=== PATIENT | female | born 1935 | race Caucasian/White ===

== ENCOUNTER 2016-02-25 14:38 | Emergency (ER) | payer MEDICARE, MEDICAID ==
[~2016-02-25] VITALS: Ht 162.6 cm; Wt 65.8 kg
[~2016-02-25 14:38] MED LIST: ACHD5005 PO; BSP5T PO; CELE50CA; CEPH500C PO; CIPR500S2 PO; CIPR500T78 PO; CITA-105; CLNZ.5T PO; CLON0.5T3 PO; CLON1TAB3 PO; CTLP20T PO; DIAZ5TAB3 PO; DICL100G13 TOP; DULO60CA6 PO; FAMO20TA5 PO; FERR-57 PO; FERR28TA PO; FURO-125 PO; FURO40TA4 PO; GBPN100C; GENT5DRO30; HYDR-34; HYDR-3720 PO; HYDR-3816 PO; HYDR1CAP2 PO; HYDR1TAB PO; HYOS0.1216 PO; IPRA3AMP IH; LORA0.5T; LORA1TAB PO; MELO-195; MELO-195 PO; MELO-198 PO; MELO7.5T; METO10TA3 PO; MIRT15TA6 PO; MUPI1OIN5 NS; NITR-65 PO; OMEP40CA36 PO; PHEN200T27 PO; PRD20T PO; PRED10TA PO; PREDNISOLONE; PROM25SU10 PR; PROP1TAB77 PO; SCR1T PO; SULF-222 PO; SULF1TAB35 PO; TRAM50TA2; TRAM50TA2 PO; TRM50T PO; TRZ100T PO
[2016-02-25] MEDS ORDERED: ONDANSETRON 4 MG (ZOFRAN) ORAL DISSOLVE TAB PO ONE (15:15)
[2016-02-25 15:32] LABS: BILIRUBIN,URINE NEGATIVE (NEGATIVE); KETONES,URINE NEGATIVE (NEGATIVE); LEUKOCYTE ESTERASE ,URINE 3+ (NEGATIVE); NITRITE,URINE NEGATIVE (NEGATIVE); PH,URINE 7 (5-9); PROTEIN,URINE 1+ (NEGATIVE); UROBILINOGEN,URINE NORMAL (NORMAL)
[2016-02-25 15:43] LABS: SQUAMOUS EPITHELIAL CELL,UR RARE /HPF; WBC,URINE 25-50 /HPF
[2016-02-25] MEDS ORDERED: PHEN-640 PO (16:14)
[2016-02-25] MEDS ORDERED: NITR-65 PO (16:14)
--- NOTE | 2016-02-25 16:14 | ED GU-Female ---
General Chief Complaint: Abdominal/GI Problems Stated Complaint: HIP PAIN Nursing Triage Note: TO ED PER EMS ONSET OF LOW ABD PAIN LAST NIGHT NO VOMITING ASKING TO DRINK WATER ON ADMIT. Nursing Sepsis Screen: No Definite Risk Source: patient (VERY LIMITED, DIFFICULT HISTORIAN), EMS, old records History of Present Illness Time seen by provider: 15:00 Initial Comments PT ARRIVES VIA EMS FROM HOME C/O LOWER ABDOMINAL PAIN SINCE LAST PM C/O BURNING ON URINATION C/O NAUSEA, NO VOMITING NO FEVER PCP: DR. CORRALES AT [facility] Allergies and Home Medications Allergies Coded Allergies: No Known Drug Allergies (Unverified , 04/26/09) Home Medications Buspirone Hcl 5 Mg Tablet 5 MG PO BID (Reported) Clonazepam 0.5 Mg Tablet 1 EACH PO BID (Reported) Duloxetine Hcl 60 Mg Capsule.dr 60 MG PO DAILY (Reported) Famotidine 20 Mg Tablet 20 MG PO BID (Reported) Ferrous Sulfate 325 Mg Tablet 325 MG PO HS (Reported) Furosemide 40 Mg Tablet 30Days 20 MG PO DAILY We will cut the 40mg tabs in half while you still have this prescription Prescribed by: WENDY DUNBAR on 04/12/14 1433 Furosemide 20 Mg Tablet #30 20 MG PO UD 1 po qAM Prescribed by: DEANA FUNEZ on 12/27/15 1854 Ipratropium/Albuterol Sulfate 3 Ml Ampul.neb 3 ML IH (Reported) Lorazepam 1 Mg Tab 1 EACH PO DAILY PRN PRN ANXIETY (Reported) Meloxicam 7.5 Mg Tablet 1 EACH PO DAILY (Reported) Nitrofurantoin Monohyd/M-Cryst 100 Mg Capsule #20 100 MG PO BID Prescribed by: BRIGID COLES on 02/25/16 1614 Phenazopyridine HCl 200 Mg Tablet #15 1 TAB PO TID Prescribed by: BRIGID COLES on 02/25/16 1614 Prednisone 20 Mg Tab #10 20 MG PO BID Prescribed by: DEANA FUNEZ on 06/07/15 1452 Trazodone Hcl 100 Mg Tablet 100 MG PO HS (Reported) Constitutional: no symptoms reportedNo fever Respiratory: no symptoms reported Cardiovascular: no symptoms reported Gastrointestinal: see HPI abdominal pain nausea Genitourinary: see HPI burning frequency incontinence Musculoskeletal: no symptoms reported Skin: no symptoms reported Psychiatric/Neurological: No Symptoms Reported Endocrine: No Symptoms Reported Past Bhqgitn-Ybrepl-Jjisud Hx Patient Social History Alcohol Use: Denies Use Recreational Drug Use: No Smoking Status: Never a Smoker Recent Foreign Travel: No Contact w/Someone Who Travel: No Recent Infectious Disease Expo: No Recent Hopitalizations: No Physical Abuse Screen: No Sexual Abuse: No Immunizations Up To Date Tetanus Booster (TDap): Unknown Date of Influenza Vaccine: Nov 24, 2014 Seasonal Allergies Seasonal Allergies: No Surgeries HX Surgeries: Yes Surgeries: Appendectomy, Orthopedic Respiratory Hx Respiratory Disorders: No Cardiovascular Hx Cardiac Disorders: Yes (chronic pedal edema) Cardiac Disorders: Chronic Edema/Swelling Neurological Hx Neurological Disorders: Yes (dementia) Neurological Disorders: Dementia Reproductive System Hx Reproductive Disorders: No Sexually Transmitted Disease: No Genitourinary Hx Genitourinary Disorders: Yes Genitourinary Disorders: Bladder Infection Gastrointestinal Hx Gastrointestinal Disorders: Yes Gastrointestinal Disorders: Diverticulosis Musculoskeletal Hx Musculoskeletal Disorders: Yes (CHRONIC GENERALIZED PAIN, ESPECIALLY HIPS-- NARCOTIC DEPENDENCY AND ABUSE. ) Musculoskeletal Disorders: Arthritis Endocrine Hx Endocrine Disorders: No HEENT HX ENT Disorders: No Cancer Hx Cancer: No (per pt "brain tumor" unknown ) Psychosocial Hx Psychiatric Problems: Yes Behavioral Health Disorders: Anxiety, Depression Integumentary HX Skin/Integumentary Disorder: No Blood Transfusions Hx Blood Disorders: No Adverse Reaction to a Blood Tr: No Family Medical History Significant Family History: No Pertinent Family Hx Family Medial History: Patient reports no known family medical history. Physical Exam Vital Signs Vital Sign - Last 12Hours 02/25/16 14:55 Temp 98.5 Pulse 121 Resp 18 B/P 177/106 Pulse Ox 94 O2 Delivery Room Air Capillary Refill : Less Than 3 Seconds General Appearance: WD/WN no apparent distress other (CONSTANT SNIFFING AND BLINKING EYES. REEKS OF ZO MASON. 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 Referrals: BABAK TRIANA MD (PCP/Family) Primary Care Physician Patient Instructions: Urinary Tract Infection, Adult (DC) Add. Discharge Instructions: HOME, REST TAKE YOUR MEDICATIONS EXACTLY PRESCRIBED FOLLOW UP WITH YOUR DRHarlan THIS WEEK FOR FURTHER CARE All discharge instructions reviewed with patient and/or family. Voiced understanding. Scripts Phenazopyridine HCl (Pyridium)200 Mg Tablet1 Tab PO TID BLADDER DISCOMFORT #15 TAB Prov:SANKET,BRIGID K DO 02/25/16 Nitrofurantoin Monohyd/M-Cryst (Macrobid 100 mg Capsule)100 Mg [id number] Mg PO BID #20 CAP Prov:SANKET,BRIGID K DO 02/25/16 SANKET,BRIGID K DO Feb 25, 2016 16:14 02/25/16 14:55 Temp 98.5 Pulse 121 Resp 18 B/P 177/106 Pulse Ox 94 O2 Delivery Room Air Blood Pressure Mean: 129 Departure Impression Impression: Primary Impression: Urinary tract infection Disposition: HOME, SELF-CARE Condition: Stable Departure-Patient Inst. Referrals: BABAK TRIANA MD (PCP/Family) Primary Care Physician Patient Instructions: Urinary Tract Infection, Adult (DC) Add. Discharge Instructions: HOME, REST TAKE YOUR MEDICATIONS EXACTLY PRESCRIBED FOLLOW UP WITH YOUR DRHarlan THIS WEEK FOR FURTHER CARE All discharge instructions reviewed with patient and/or family. Voiced understanding. Scripts Phenazopyridine HCl (Pyridium)200 Mg Tablet1 Tab PO TID BLADDER DISCOMFORT #15 TAB Prov:SANKET,BRIGID K DO 02/25/16 Nitrofurantoin Monohyd/M-Cryst (Macrobid 100 mg Capsule)100 Mg [id number] Mg PO BID #20 CAP Prov:SANKET,BRIGID K DO 02/25/16 SANKET,BRIGID K DO Feb 25, 2016 16:14
[2016-02-25 16:30] VITALS: BP 105/94
== END 2016-02-25 16:57 | disposition home or self-care (01) ==
LOC: EDUNIT# 14:38 → ER 14:39
DX: N39.0 Urinary tract infection, site not specified (principal)
CPT/HCPCS: 51701; 81000; 87088; 99284

== ENCOUNTER 2016-02-26 01:10 | Emergency (ER) | payer MEDICARE, MEDICAID ==
[~2016-02-26] VITALS: Ht 162.6 cm; Wt 61.2 kg
[~2016-02-26 01:10] MED LIST changes: +PHEN-640 PO
[2016-02-26] MEDS ORDERED: KETOROLAC 30 MG/ML VIAL IM ONE (01:45)
[2016-02-26 02:22] LABS: BASOPHILS % (AUTO) 0 % (0-10); EOSINOPHILS % (AUTO) 0 % (0-10); LYMPHOCYTES # (AUTO) 1.4 X 10^3 (1.0-4.0); LYMPHOCYTES % (AUTO) 12 % (12-44); MEAN CORPUSCULAR HEMOGLOBIN 31 PG (25-34); MEAN CORPUSCULAR HGB CONC 33 G/DL (32-36); MEAN CORPUSCULAR VOLUME 93 FL (80-99); MEAN PLATELET VOLUME 9.6 FL (7.4-10.4); MONOCYTES % (AUTO) 9 % (0-12); NEUTROPHILS # (AUTO) 9.1 X 10^3 (1.8-7.8); NEUTROPHILS % (AUTO) 79 % (42-75); PLATELET COUNT 229 10^3/uL (130-400); RED BLOOD COUNT 4.36 10^6/uL (4.35-5.85); RED CELL DISTRIBUTION WIDTH 13.2 % (10.0-14.5); WHITE BLOOD COUNT 11.6 10^3/uL (4.3-11.0)
[2016-02-26 02:43] LABS: ALANINE AMINOTRANSFERASE 15 U/L (0-55); ANION GAP 12 MMOL/L (5-14); ASPARTATE AMINO TRANSFERASE 18 U/L (5-34); BILIRUBIN,TOTAL 0.5 MG/DL (0.1-1.0); BLOOD UREA NITROGEN 12 MG/DL (7-18); BUN/CREATININE RATIO 18; CALCIUM 9.1 MG/DL (8.5-10.1); CARBON DIOXIDE 21 MMOL/L (21-32); CHLORIDE 98 MMOL/L (98-107); CREATININE SERUM 0.66 MG/DL (0.60-1.30); GFR ESTIMATED > 60; GLUCOSE 119 MG/DL (70-105); LIPASE 18 U/L (8-78); POTASSIUM 3.7 MMOL/L (3.6-5.0); SODIUM 131 MMOL/L (135-145); TOTAL PROTEIN 6.7 G/DL (6.4-8.2)
[2016-02-26] MEDS ORDERED: LIDOCAINE 1% INJ 20 ML (XYLOCAINE) VIAL INJ ONE (03:45)
[2016-02-26] MEDS ORDERED: cefTRIAXone 1 GM (ROCEPHIN) VIAL IM ONE (03:45)
[2016-02-26] MEDS ORDERED: PHENAZOPYRIDINE 100 MG (PYRIDIUM) TABLET PO ONE (03:45)
--- NOTE | 2016-02-26 03:49 | ED GU-Female ---
General Chief Complaint: General Problems/Pain Stated Complaint: AB PAIN Nursing Triage Note: Pt presents to ED with c/o abdominal pain, pt seen in ED yesterday afternoon and given scripts but did not get them filled. Nursing Sepsis Screen: Possible Sepsis Risk Source: patient, EMS, RN notes reviewed Exam Limitations: no limitations History of Present Illness Time seen by provider: 01:30 Initial Comments As above. Timing/Duration: yesterday Severity/Quality: severe Location: suprapubic Radiation: none Activities at Onset: none Sexual [place] History: not active Modifying Factors: Improves With Other (nothing makes pain better, or worse.) Associated Symptoms: abdominal pain Allergies and Home Medications Allergies Coded Allergies: No Known Drug Allergies (Unverified , 04/26/09) Home Medications Buspirone Hcl 5 Mg Tablet 5 MG PO BID (Reported) Clonazepam 0.5 Mg Tablet 1 EACH PO BID (Reported) Duloxetine Hcl 60 Mg Capsule.dr 60 MG PO DAILY (Reported) Famotidine 20 Mg Tablet 20 MG PO BID (Reported) Ferrous Sulfate 325 Mg Tablet 325 MG PO HS (Reported) Furosemide 40 Mg Tablet 30Days 20 MG PO DAILY We will cut the 40mg tabs in half while you still have this prescription Prescribed by: WENDY DUNBAR on 04/12/14 1433 Furosemide 20 Mg Tablet #30 20 MG PO UD 1 po qAM Prescribed by: DEANA FUNEZ on 12/27/15 1854 Ipratropium/Albuterol Sulfate 3 Ml Ampul.neb 3 ML IH (Reported) Lorazepam 1 Mg Tab 1 EACH PO DAILY PRN PRN ANXIETY (Reported) Meloxicam 7.5 Mg Tablet 1 EACH PO DAILY (Reported) Nitrofurantoin Monohyd/M-Cryst 100 Mg Capsule #20 100 MG PO BID Prescribed by: BRIGID COLES on 02/25/16 1614 Phenazopyridine HCl 200 Mg Tablet #15 1 TAB PO TID Prescribed by: BRIGID COLES on 02/25/16 1614 Prednisone 20 Mg Tab #10 20 MG PO BID Prescribed by: DEANA FUNEZ on 06/07/15 1452 Trazodone Hcl 100 Mg Tablet 100 MG PO HS (Reported) Constitutional: see HPI Gastrointestinal: see HPI abdominal pain : No All Other Systemes Reviewed Negative Unless Noted: Yes (Negative excepted noted.) Past Oxcxqvq-Lyfzzr-Odnsed Hx Patient Social History Alcohol Use: Denies Use Recreational Drug Use: No Smoking Status: Never a Smoker Recent Foreign Travel: No Contact w/Someone Who Travel: No Recent Infectious Disease Expo: No Recent Hopitalizations: No Physical Abuse Screen: No Sexual Abuse: No Immunizations Up To Date Tetanus Booster (TDap): Unknown Date of Influenza Vaccine: Nov 24, 2014 Seasonal Allergies Seasonal Allergies: No Surgeries HX Surgeries: Yes Surgeries: Appendectomy, Orthopedic Respiratory Hx Respiratory Disorders: No Cardiovascular Hx Cardiac Disorders: Yes (chronic pedal edema) Cardiac Disorders: Chronic Edema/Swelling Neurological Hx Neurological Disorders: Yes (dementia) Reproductive System Hx Reproductive Disorders: No Sexually Transmitted Disease: No Genitourinary Hx Genitourinary Disorders: No Gastrointestinal Hx Gastrointestinal Disorders: Yes Gastrointestinal Disorders: Diverticulosis Musculoskeletal Hx Musculoskeletal Disorders: Yes (CHRONIC GENERALIZED PAIN, ESPECIALLY HIPS-- NARCOTIC DEPENDENCY AND ABUSE. ) Musculoskeletal Disorders: Arthritis Endocrine Hx Endocrine Disorders: No HEENT HX ENT Disorders: No Cancer Hx Cancer: No (per pt "brain tumor" unknown ) Psychosocial Hx Psychiatric Problems: Yes Behavioral Health Disorders: Anxiety, Depression Integumentary HX Skin/Integumentary Disorder: No Blood Transfusions Hx Blood Disorders: No Adverse Reaction to a Blood Tr: No Family Medical History Significant Family History: No Pertinent Family Hx Family Medial History: Patient reports no known family medical history. Physical Exam Vital Signs Vital Sign - Last 12Hours 02/26/16 01:10 Temp 98.0 Pulse 115 Resp 20 B/P 162/102 Pulse Ox 95 O2 Delivery Room Air Capillary Refill : Less Than 3 Seconds General Appearance: WD/WN no apparent distress (although the patient rates her pain as severe.) Cardiovascular: tachycardia Respiratory: no respiratory distress Gastrointestinal: softNo distended, No guarding, No rebound, tenderness ( suprapubically) Rectal: deferred Back: no CVA tenderness Neurologic/Psychiatric: no motor/sensory deficits alert depressed affect Skin: warm/dry Progress/Results/Core Measures Results/Orders Lab Results Laboratory Tests Test 02/26/16 02:16 Range/Units Alanine Aminotransferase (ALT/SGPT) 15 0-55 U/L Albumin 4.0 3.2-4.5 G/DL Alkaline Phosphatase 64 40-136 U/L Anion Gap 12 5-14 MMOL/L Aspartate Amino Transf (AST/SGOT) 18 5-34 U/L BUN/Creatinine Ratio 18 Basophils # (Auto) 0.0 0.0-0.1 10^3/uL Basophils (%) (Auto) 0 0-10 % Blood Urea Nitrogen 12 7-18 MG/DL Calcium Level 9.1 8.5-10.1 MG/DL Carbon Dioxide Level 21 21-32 MMOL/L Chloride Level 98 98-107 MMOL/L Creatinine 0.66 0.60-1.30 MG/DL Eosinophils # (Auto) 0.0 0.0-0.3 10^3/uL Eosinophils (%) (Auto) 0 0-10 % Estimat Glomerular Filtration Rate > 60 Glucose Level 119 H 70-105 MG/DL Hematocrit 41 35-52 % Hemoglobin 13.5 11.5-16.0 G/DL Lipase 18 8-78 U/L Lymphocytes # (Auto) 1.4 1.0-4.0 X 10^3 Lymphocytes (%) (Auto) 12 12-44 % Mean Corpuscular Hemoglobin 31 25-34 PG Mean Corpuscular Hemoglobin Concent 33 32-36 G/DL Mean Corpuscular Volume 93 80-99 FL Mean Platelet Volume 9.6 7.4-10.4 FL Monocytes # (Auto) 1.0 0.0-1.0 X 10^3 Monocytes (%) (Auto) 9 0-12 % Neutrophils # (Auto) 9.1 H 1.8-7.8 X 10^3 Neutrophils (%) (Auto) 79 H 42-75 % Platelet Count 229 130-400 10^3/uL Potassium Level 3.7 3.6-5.0 MMOL/L Red Blood Count 4.36 4.35-5.85 10^6/uL Red Cell Distribution Width 13.2 10.0-14.5 % Sodium Level 131 L 135-145 MMOL/L Total Bilirubin 0.5 0.1-1.0 MG/DL Total Protein 6.7 6.4-8.2 G/DL White Blood Count 11.6 H 4.3-11.0 10^3/uL My Orders Orders-BOBO FERNANDEZ DO Cbc With Automated Diff (02/26/16 01:34) Comprehensive Metabolic Panel (02/26/16 01:34) Lipase (02/26/16 01:34) Ketorolac Injection (Toradol Injection) (02/26/16 01:45) Ct Abdomen/Pelvis Wo (02/26/16 02:59) Ceftriaxone Injection (Rocephin Injectio (02/26/16 03:45) Lidocaine 1% Injection (Xylocaine 1% Inj (02/26/16 03:45) Phenazopyridine Tablet (Pyridium Tablet) (02/26/16 03:45) Meloxicam Tablet (Mobic Tablet) (02/26/16 09:00) Ondansetron Oral Dissolve Tab (Zofran (02/26/16 03:59) Ondansetron Oral Dissolve Tab (Zofran (02/26/16 04:15) Rx-Ondansetron Po (Rx-Zofran Po) (02/26/16 04:15) Rx-Ondansetron Po (Rx-Zofran Po) (02/26/16 04:06) Medications Given in ED Current Medications Medications Dose Ordered Sig/Kristi Route Start Time Stop Time Status Last Admin Dose Admin Ceftriaxone Sodium 1,000 mg ONCE ONCE IM 02/26/16 03:45 02/26/16 03:46 DC 02/26/16 03:53 1,000 MG Ketorolac Tromethamine 15 mg ONCE ONCE IM 02/26/16 01:45 02/26/16 01:46 DC 02/26/16 02:15 15 MG Lidocaine HCl 2.1 ml ONCE ONCE INJ 02/26/16 03:45 02/26/16 03:46 DC 02/26/16 03:54 2.1 ML Ondansetron HCl 4 mg Q6H PRN SL 02/26/16 04:15 02/26/16 04:13 4 MG Phenazopyridine HCl 200 mg ONCE ONCE PO 02/26/16 03:45 02/26/16 03:46 DC 02/26/16 03:53 200 MG Vital Signs/I&O Vital Sign - Last 12Hours 02/26/16 01:10 Temp 98.0 Pulse 115 Resp 20 B/P 162/102 Pulse Ox 95 O2 Delivery Room Air Blood Pressure Mean: 122 Diagnostic Imaging Diagonstic Imaging: CT Plain Films/CT/US/NM/MRI: abdomen Reviewed: Reviewed [place] Hawk Study (nothing acute) Departure Impression Impression: Primary Impression: Abdominal pain Additional Impressions: Urinary tract infection Non compliance w medication regimen Disposition: 01 HOME, SELF-CARE Condition: Stable Departure-Patient Inst. Decision time for Depature: 03:46 Referrals: BABAK TRIANA MD (PCP/Family) Primary Care Physician Patient Instructions: Urinary Tract Infection, Adult (DC) Add. Discharge Instructions: All discharge instructions reviewed with patient and/or family. Voiced understanding. NEED TO FILL THE PRESCRIPTIONS THAT WERE GIVEN TO YOU @ YOUR EARLIER VISIT AND TAKE DIRECTED. BOBO FERNANDEZ DO Feb 26, 2016 03:48
[2016-02-26] MEDS ORDERED: ONDANSETRON 4 MG (ZOFRAN) ORAL DISSOLVE TAB ONE (03:59)
[2016-02-26] MEDS ORDERED: RX-ONDANSETRON 4 MG ODT (ZOFRAN) PPK #4 ONE (04:06)
[2016-02-26] MEDS ORDERED: RX-ONDANSETRON 4 MG ODT (ZOFRAN) PPK #4 SL PRN (04:15)
[2016-02-26] MEDS ORDERED: ONDANSETRON 4 MG (ZOFRAN) ORAL DISSOLVE TAB PO ONE (04:15)
[2016-02-26 04:40] VITALS: BP 139/70
--- NOTE | 2016-02-26 07:06 | Diagnostic Imaging Report ---
PROCEDURE: CT abdomen and pelvis without contrast. TECHNIQUE: Multiple contiguous axial images were obtained through the abdomen and pelvis without the use of intravenous contrast. INDICATION: Pain. Exam compared 07/07/2015. The lung bases are nonacute. There is no pneumatosis or free air. There are beam hardening artifacts owing to bilateral hip prostheses. No visualized acute pelvic abnormality. There is no appendicitis. No findings suggestive of diverticulitis. There is no hydronephrosis or opaque kidney stone. The aorta nonaneurysmal. Gallbladder and bile ducts unremarkable. There is no adrenal mass. No mesenteric or retroperitoneal lymphadenopathy. L3 superior endplate compression deformity is sclerotic, well defined, and stable from prior. T11 superior endplate concavity without retropulsion is above the [id number] on prior but showed no apparent adjacent hemorrhage. No lucent fracture line. This is likely chronic although correlate clinically. 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 IMPRESSION: No bowel, biliary, or urinary tract obstruction. No ascites, fluid collection, or inflammatory process. Stable L3 endplate vertebral body fracture. T11 superior endplate concavity not seen on prior but above the [id number] appears chronic but correlate clinically. No convincing evidence for an acute abnormality at this study. Dictated by: Dictated on workstation # [id number]
[2016-02-26] MEDS ORDERED: MELOXICAM 7.5 MG (MOBIC) TABLET PO SCH (09:00)
== END 2016-02-26 04:40 | disposition home or self-care (01) ==
LOC: EDUNIT# 01:10 → ER 01:11
DX: R10.30 Lower abdominal pain, unspecified (principal); N39.0 Urinary tract infection, site not specified; Z91.14 Patient's other noncompliance with medication regimen; Z79.899 Other long term (current) drug therapy
CPT/HCPCS: 36415; 74176; 80048; 80053; 81000; 83690; 85007; 85025; 85027; 87088; 96372; 99281

== ENCOUNTER 2016-02-26 13:59 | Emergency (ER) | payer MEDICARE, MEDICAID ==
[~2016-02-26] VITALS: Ht 170.2 cm; Wt 68.0 kg
--- NOTE | 2016-02-26 18:42 | ED General ---
General Chief Complaint: General Problems/Pain Stated Complaint: ABD PAIN, UTI SYMPTOMS Nursing Triage Note: PT TO ED W/ C/O ABD PAIN ET UTI. PT HAS BEEN SEEN ET TREATED IN THIS ED X2 ALREADY FOR SAME C/O. PT DENIED GETTING RX FILLED TODAY THAT WAS PRESCRIBED LAST NOC. Nursing Sepsis Screen: No Definite Risk Source of Information: Patient Exam Limitations: No Limitations (DEANA FUNEZ) History of Present Illness Time Seen by Provider: 18:42 Initial Comments Patient seen, evaluated, and patient care provided by Dr. Donis. (DEANA FUNEZ) Initial Comments Patient has returned to the ED once again c/ c/o abdominal pain. I know I have seen her @ least twice recently and I know Dr. Ansari has seen her @ least twice in that period of time. Her work up revealed a UTI for which she was provided Rx's by Dr. Ansari for treatment of her condition but the patient continues to not fill the Rx's and keeps returning here c/ the same complaints. Has a hx of liking pain meds, although I think she is trying to get admitted so that someone can take care of her. She apparently lives by herself and I think she is lonely. Severity: Moderate Modifying Factors: improves with Other (none) Associated Systoms: Denies Symptoms (BOBO DONIS DO) Allergies and Home Medications Allergies Coded Allergies: No Known Drug Allergies (Unverified , 04/26/09) Home Medications Buspirone Hcl 5 Mg Tablet 5 MG PO BID (Reported) Clonazepam 0.5 Mg Tablet 1 EACH PO BID (Reported) Duloxetine Hcl 60 Mg Capsule.dr 60 MG PO DAILY (Reported) Famotidine 20 Mg Tablet 20 MG PO BID (Reported) Ferrous Sulfate 325 Mg Tablet 325 MG PO HS (Reported) Furosemide 40 Mg Tablet 30Days 20 MG PO DAILY We will cut the 40mg tabs in half while you still have this prescription Prescribed by: WENDY DUNBAR on 04/12/14 1433 Furosemide 20 Mg Tablet #30 20 MG PO UD 1 po qAM Prescribed by: DEANA FUNEZ on 12/27/15 1854 Ipratropium/Albuterol Sulfate 3 Ml Ampul.neb 3 ML IH (Reported) Lorazepam 1 Mg Tab 1 EACH PO DAILY PRN PRN ANXIETY (Reported) Meloxicam 7.5 Mg Tablet 1 EACH PO DAILY (Reported) Nitrofurantoin Monohyd/M-Cryst 100 Mg Capsule #20 100 MG PO BID Prescribed by: BRIGID ANSARI on 02/25/16 1614 Phenazopyridine HCl 200 Mg Tablet #15 1 TAB PO TID Prescribed by: BRIGID ANSARI on 02/25/16 1614 Prednisone 20 Mg Tab #10 20 MG PO BID Prescribed by: DEANA FUNEZ on 06/07/15 1452 Trazodone Hcl 100 Mg Tablet 100 MG PO HS (Reported) Constitutional: see HPI Gastrointestinal: see HPI abdominal pain : No (BOBO DONIS DO) All Other Systems Reviewed Negative Unless Noted: Yes (Negative excepted noted.) (BOBO DONIS DO) Past Ukpymrq-Snmgam-Lyftid Hx Patient Social History Alcohol Use: Denies Use Recreational Drug Use: No Smoking Status: Never a Smoker Recent Foreign Travel: No Contact w/Someone Who Travel: No Recent Infectious Disease Expo: No Recent Hopitalizations: No Physical Abuse Screen: No Sexual Abuse: No (DEANA FUNEZ) Immunizations Up To Date Tetanus Booster (TDap): Unknown Date of Influenza Vaccine: Nov 24, 2014 (DEANA FUNEZ) Seasonal Allergies Seasonal Allergies: No (DEANA FUNEZ) Surgeries HX Surgeries: Yes Surgeries: Appendectomy, Orthopedic (DEANA FUNEZ) Respiratory Hx Respiratory Disorders: No (DEANA FUNEZ) Cardiovascular Hx Cardiac Disorders: Yes (chronic pedal edema) Cardiac Disorders: Chronic Edema/Swelling (DEANA FUNEZ) Neurological Hx Neurological Disorders: Yes (dementia) (DEANA FUNEZ) Reproductive System Hx Reproductive Disorders: No Sexually Transmitted Disease: No (DEANA FUNEZ) Genitourinary Hx Genitourinary Disorders: No (DEANA FUNEZ) Gastrointestinal Hx Gastrointestinal Disorders: Yes Gastrointestinal Disorders: Diverticulosis (DEANA FUNEZ) Musculoskeletal Hx Musculoskeletal Disorders: Yes (CHRONIC GENERALIZED PAIN, ESPECIALLY HIPS-- NARCOTIC DEPENDENCY AND ABUSE. ) Musculoskeletal Disorders: Arthritis (DEANA FUNEZ) Endocrine Hx Endocrine Disorders: No (DEANA FUNEZ) HEENT HX ENT Disorders: No (DEANA FUNEZ) Cancer Hx Cancer: No (per pt "brain tumor" unknown ) (DEANA FUNEZ) Psychosocial Hx Psychiatric Problems: Yes Behavioral Health Disorders: Anxiety, Depression (DEANA FUNEZ) Integumentary HX Skin/Integumentary Disorder: No (DEANA FUNEZ) Blood Transfusions Hx Blood Disorders: No Adverse Reaction to a Blood Tr: No (DEANA FUNEZ) Family Medical History Significant Family History: No Pertinent Family Hx Family Medial History: Patient reports no known family medical history. (DEANA FUNEZ) Family Medial History: Patient reports no known family medical history. (BOBO DONIS DO) Physical Exam Vital Signs Vital Sign - Last 12Hours 02/26/16 17:32 Temp 98.3 Pulse 113 Resp 20 B/P 137/76 Pulse Ox 95 O2 Delivery Room Air (BOBO DONIS DO) Vital Signs Capillary Refill : Less Than 3 Seconds (DEANA FUNEZ) General Appearance: No Apparent Distress WD/WN Anxious Respiratory: No Respiratory Distress Cardiovascular: Tachycardia Gastrointestinal: Soft Rectal: Deferred Neurologic/Psychiatric: Alert No Motor/Sensory Deficits Depressed Affect Other (patient is very needy and constantly calling out for the nurse or anyone who walks by.) Skin: Warm/Dry (BOBO DONIS DO) Progress/Results/Core Measures Results/Orders Lab Results (BOBO DONIS DO) Lab Results Laboratory Tests Test 02/26/16 19:19 02/26/16 20:00 Range/Units Anion Gap 17 H 5-14 MMOL/L BUN/Creatinine Ratio 18 Band Neutrophils 2 % Basophils # (Auto) 0.0 0.0-0.1 10^3/uL Basophils % (Manual) 0 % Basophils (%) (Auto) 0 0-10 % Blood Morphology Comment NORMAL Blood Urea Nitrogen 15 7-18 MG/DL Calcium Level 9.5 8.5-10.1 MG/DL Carbon Dioxide Level 26 21-32 MMOL/L Chloride Level 91 L 98-107 MMOL/L Creatinine 0.85 0.60-1.30 MG/DL Eosinophils # (Auto) 0.0 0.0-0.3 10^3/uL Eosinophils % (Manual) 0 % Eosinophils (%) (Auto) 0 0-10 % Estimat Glomerular Filtration Rate > 60 Glucose Level 116 H 70-105 MG/DL Hematocrit 42 35-52 % Hemoglobin 14.3 11.5-16.0 G/DL Lymphocytes # (Auto) 1.0 1.0-4.0 X 10^3 Lymphocytes % (Manual) 8 % Lymphocytes (%) (Auto) 7 L 12-44 % Mean Corpuscular Hemoglobin 31 25-34 PG Mean Corpuscular Hemoglobin Concent 34 32-36 G/DL Mean Corpuscular Volume 92 80-99 FL Mean Platelet Volume 9.7 7.4-10.4 FL Monocytes # (Auto) 0.6 0.0-1.0 X 10^3 Monocytes % (Manual) 5 % Monocytes (%) (Auto) 4 0-12 % Neutrophils # (Auto) 12.1 H 1.8-7.8 X 10^3 Neutrophils % (Manual) 85 % Neutrophils (%) (Auto) 89 H 42-75 % Platelet Count 277 130-400 10^3/uL Potassium Level 3.2 L 3.6-5.0 MMOL/L Red Blood Count 4.62 4.35-5.85 10^6/uL Red Cell Distribution Width 13.2 10.0-14.5 % Sodium Level 134 L 135-145 MMOL/L White Blood Count 13.7 H 4.3-11.0 10^3/uL Urine Bacteria FEW H /HPF Urine Bilirubin NEGATIVE NEGATIVE Urine Casts NONE /LPF Urine Clarity SLIGHTLY CLOUDY Urine Color AKILA H Urine Crystals NONE /LPF Urine Culture Indicated YES Urine Glucose (UA) NEGATIVE NEGATIVE Urine Ketones 2+ H NEGATIVE Urine Leukocyte Esterase 1+ H NEGATIVE Urine Mucus SMALL H /LPF Urine Nitrite POSITIVE H NEGATIVE Urine Protein 2+ H NEGATIVE Urine RBC NONE /HPF Urine RBC (Auto) NEGATIVE NEGATIVE Urine Specific [place] 1.015 L 1.016-1.022 Urine Urobilinogen 4 H NORMAL MG/DL Urine WBC 5-10 H /HPF Urine pH 5 5-9 (DEANA FUNEZ) Micro Results Microbiology 02/26/16 Urine Culture - Preliminary, Resulted NO GROWTH (DEANA FUNEZ) My Orders Orders-BOBO DONIS DO Im Injection Antibiotic Ed (02/26/16 ) Im/Sub-Q Injection Non-Ab Ed (02/26/16 ) (BOBO DONIS DO) Vital Signs/I&O (BOBO DONIS DO) Blood Pressure Mean: 96 Progress Note : Progress Note Really feel patient needs placed in @ least an assisted care facility, but she is adamantly against it even though she appears unable to take care of her self. This info was passed on to the patient's daughter by the RN as well. (BOBO DONIS DO) Departure Impression Impression: Primary Impression: Abdominal pain Additional Impressions: Urinary tract infection Non compliance w medication regimen Loneliness Disposition: 01 HOME, SELF-CARE Condition: Stable Departure-Patient Inst. Decision time for Depature: 20:47 (BOBO DONIS DO) Referrals: BABAK TRIANA MD (PCP/Family) Primary Care Physician Patient Instructions: Urinary Tract Infection, Adult (DC) Add. Discharge Instructions: All discharge instructions reviewed with patient and/or family. Voiced understanding. MUST FILL YOUR PRESCRIPTIONS AND TAKE DIRECTED. YOUR SYMPTOMS WILL CONTINUE UNTIL YOU FILL AND TAKE YOUR MEDICATIONS. DEANA FUNEZ Feb 26, 2016 18:42 BOBO DONIS DO Feb 26, 2016 20:48 Monocytes # (Auto) 0.6 0.0-1.0 X 10^3 Monocytes % (Manual) 5 % Monocytes (%) (Auto) 4 0-12 % Neutrophils # (Auto) 12.1 H 1.8-7.8 X 10^3 Neutrophils % (Manual) 85 % Neutrophils (%) (Auto) 89 H 42-75 % Platelet Count 277 130-400 10^3/uL Potassium Level 3.2 L 3.6-5.0 MMOL/L Red Blood Count 4.62 4.35-5.85 10^6/uL Red Cell Distribution Width 13.2 10.0-14.5 % Sodium Level 134 L 135-145 MMOL/L White Blood Count 13.7 H 4.3-11.0 10^3/uL Urine Bacteria FEW H /HPF Urine Bilirubin NEGATIVE NEGATIVE Urine Casts NONE /LPF Urine Clarity SLIGHTLY CLOUDY Urine Color AKILA H Urine Crystals NONE /LPF Urine Culture Indicated YES Urine Glucose (UA) NEGATIVE NEGATIVE Urine Ketones 2+ H NEGATIVE Urine Leukocyte Esterase 1+ H NEGATIVE Urine Mucus SMALL H /LPF Urine Nitrite POSITIVE H NEGATIVE Urine Protein 2+ H NEGATIVE Urine RBC NONE /HPF Urine RBC (Auto) NEGATIVE NEGATIVE Urine Specific [place] 1.015 L 1.016-1.022 Urine Urobilinogen 4 H NORMAL MG/DL Urine WBC 5-10 H /HPF Urine pH 5 5-9 (DEANA FUNEZ) Micro Results Microbiology 02/26/16 Urine Culture - Preliminary, Resulted NO GROWTH (DEANA FUNEZ) My Orders Orders-BOBO DONIS DO Basic Metabolic Panel (02/26/16 19:03) Cbc With Automated Diff (02/26/16 19:03) Ua Culture If Indicated (02/26/16 19:03) Manual Differential (02/26/16 19:19) Urine Culture (02/26/16 20:00) Ketorolac Injection (Toradol Injection) (02/26/16 20:35) Ceftriaxone Injection (Rocephin Injectio (02/26/16 20:35) Lidocaine 1% Injection (Xylocaine 1% Inj (02/26/16 20:36) Ceftriaxone Injection (Rocephin Injectio (02/26/16 20:45) Lidocaine 1% Injection (Xylocaine 1% Inj (02/26/16 20:45) Ketorolac Injection (Toradol Injection) (02/26/16 20:45) (BOBO DONIS DO) Vital Signs/I&O Vital Sign - Last 12Hours 02/26/16 17:32 Temp 98.3 Pulse 113 Resp 20 B/P 137/76 Pulse Ox 95 O2 Delivery Room Air (BOBO DONIS DO) Blood Pressure Mean: 96 Departure Impression Impression: Primary Impression: Abdominal pain Additional Impressions: Urinary tract infection Non compliance w medication regimen Loneliness Disposition: 01 HOME, SELF-CARE Condition: Stable Departure-Patient Inst. Decision time for Depature: 20:47 (BOBO DONIS DO) Referrals: BABAK TRIANA MD (PCP/Family) Primary Care Physician Patient Instructions: Urinary Tract Infection, Adult (DC) Add. Discharge Instructions: All discharge instructions reviewed with patient and/or family. Voiced understanding. MUST FILL YOUR PRESCRIPTIONS AND TAKE DIRECTED. YOUR SYMPTOMS WILL CONTINUE UNTIL YOU FILL AND TAKE YOUR MEDICATIONS. DEANA FUNEZ Feb 26, 2016 18:42 BOBO DONIS DO Feb 26, 2016 20:48
[2016-02-26 19:24] LABS: BASOPHILS % (AUTO) 0 % (0-10); EOSINOPHILS % (AUTO) 0 % (0-10); LYMPHOCYTES % (AUTO) 7 % (12-44); MEAN CORPUSCULAR HEMOGLOBIN 31 PG (25-34); MEAN CORPUSCULAR HGB CONC 34 G/DL (32-36); MEAN CORPUSCULAR VOLUME 92 FL (80-99); MEAN PLATELET VOLUME 9.7 FL (7.4-10.4); MONOCYTES # (AUTO) 0.6 X 10^3 (0.0-1.0); MONOCYTES % (AUTO) 4 % (0-12); NEUTROPHILS # (AUTO) 12.1 X 10^3 (1.8-7.8); NEUTROPHILS % (AUTO) 89 % (42-75); PLATELET COUNT 277 10^3/uL (130-400); RED BLOOD COUNT 4.62 10^6/uL (4.35-5.85); RED CELL DISTRIBUTION WIDTH 13.2 % (10.0-14.5); WHITE BLOOD COUNT 13.7 10^3/uL (4.3-11.0)
[2016-02-26 19:42] LABS: ANION GAP 17 MMOL/L (5-14); BLOOD UREA NITROGEN 15 MG/DL (7-18); BUN/CREATININE RATIO 18; CALCIUM 9.5 MG/DL (8.5-10.1); CARBON DIOXIDE 26 MMOL/L (21-32); CHLORIDE 91 MMOL/L (98-107); CREATININE SERUM 0.85 MG/DL (0.60-1.30); GFR ESTIMATED > 60; GLUCOSE 116 MG/DL (70-105); POTASSIUM 3.2 MMOL/L (3.6-5.0); SODIUM 134 MMOL/L (135-145)
[2016-02-26 19:45] LABS: BAND NEUTROPHILS 2 %; BASOPHILS % (MANUAL) 0 %; EOSINOPHILS % (MANUAL) 0 %; LYMPHOCYTES % (MANUAL) 8 %; NEUTROPHILS % (MANUAL) 85 %
[2016-02-26 20:15] LABS: KETONES,URINE 2+ (NEGATIVE); LEUKOCYTE ESTERASE ,URINE 1+ (NEGATIVE); NITRITE,URINE POSITIVE (NEGATIVE); PH,URINE 5 (5-9); PROTEIN,URINE 2+ (NEGATIVE); UROBILINOGEN,URINE 4 MG/DL (NORMAL)
[2016-02-26 20:26] LABS: BILIRUBIN,URINE NEGATIVE (NEGATIVE)
[2016-02-26] MEDS ORDERED: cefTRIAXone 1 GM (ROCEPHIN) VIAL ONE (20:35)
[2016-02-26] MEDS ORDERED: KETOROLAC 30 MG/ML VIAL ONE (20:35)
[2016-02-26] MEDS ORDERED: LIDOCAINE 1% INJ 20 ML (XYLOCAINE) VIAL ONE (20:36)
[2016-02-26] MEDS ORDERED: KETOROLAC 30 MG/ML VIAL IM ONE (20:45)
[2016-02-26] MEDS ORDERED: cefTRIAXone 1 GM (ROCEPHIN) VIAL IM ONE (20:45)
[2016-02-26] MEDS ORDERED: LIDOCAINE 1% INJ 20 ML (XYLOCAINE) VIAL INJ ONE (20:45)
[2016-02-26 21:18] VITALS: BP 125/73
== END 2016-02-26 21:18 | disposition home or self-care (01) ==
LOC: EDUNIT# 13:59 → ER 14:00
DX: R10.30 Lower abdominal pain, unspecified (principal); N39.0 Urinary tract infection, site not specified; Z91.14 Patient's other noncompliance with medication regimen; Z60.9 Problem related to social environment, unspecified
CPT/HCPCS: 36415; 80048; 81000; 85007; 85027; 87088; 96372; 99281

== ENCOUNTER 2016-03-05 16:58 | Emergency (ER) | payer MEDICARE, MEDICAID ==
[~2016-03-05] VITALS: Ht 162.6 cm; Wt 60.8 kg
--- NOTE | 2016-03-05 17:07 | ED Abdominal Pain ---
General Stated Complaint: ABD PAIN Source of Information: Patient Exam Limitations: No Limitations History of Present Illness Time Seen By Provider: 17:05 Initial Comments To ER with reports of suprapubic abdominal pain since this morning. No nausea vomiting or diarrhea. No fevers or chills. She arrives per EMS who noted her to be tachycardic at about 130. Blood pressure was adequate. She reports she feels like she needs to urinate currently. Last bowel movement was this morning and was normal. She was seen here in the emergency room on 02/25/16, twice on 02/26/16. She was diagnosed with urinary tract infection and given a prescription for nitrofurantoin which she has not filled yet. Timing/Duration: 12-24 Hours Severity/Quality: Moderate Location: Suprapubic Radiation: No Radiation Activities at Onset: None Allergies and Home Medications Allergies Coded Allergies: No Known Drug Allergies (Unverified , 04/26/09) Home Medications Buspirone Hcl 5 Mg Tablet 5 MG PO BID (Reported) Clonazepam 0.5 Mg Tablet 1 EACH PO BID (Reported) Duloxetine Hcl 60 Mg Capsule.dr 60 MG PO DAILY (Reported) Famotidine 20 Mg Tablet 20 MG PO BID (Reported) Ferrous Sulfate 325 Mg Tablet 325 MG PO HS (Reported) Furosemide 40 Mg Tablet 30Days 20 MG PO DAILY We will cut the 40mg tabs in half while you still have this prescription Prescribed by: WENDY DUNBAR on 04/12/14 1433 Furosemide 20 Mg Tablet #30 20 MG PO UD 1 po qAM Prescribed by: DEANA FUNEZ on 12/27/15 1854 Ipratropium/Albuterol Sulfate 3 Ml Ampul.neb 3 ML IH (Reported) Lorazepam 1 Mg Tab 1 EACH PO DAILY PRN PRN ANXIETY (Reported) Meloxicam 7.5 Mg Tablet 1 EACH PO DAILY (Reported) Nitrofurantoin Monohyd/M-Cryst 100 Mg Capsule #20 100 MG PO BID Prescribed by: BRIGID COLES on 02/25/16 1614 Phenazopyridine HCl 200 Mg Tablet #15 1 TAB PO TID Prescribed by: BRIGID COLES on 02/25/16 1614 Prednisone 20 Mg Tab #10 20 MG PO BID Prescribed by: DEANA FUNEZ on 06/07/15 1452 Trazodone Hcl 100 Mg Tablet 100 MG PO HS (Reported) Review of Systems Constitutional: see HPI EENTM: No Symptoms Reported Respiratory: No Symptoms Reported Cardiovascular: No Symptoms Reported Gastrointestinal: See HPI Abdominal PainDenies Constipated, Denies Diarrhea, Denies Nausea Genitourinary: No Symptoms ReportedDenies See HPI, Denies Burning, Denies Discharge, Denies Drainage, Denies Frequency, Denies Flank Pain, Denies Hematuria Musculoskeletal: no symptoms reported Skin: no symptoms reported Psychiatric/Neurological: No Symptoms Reported Endocrine: No Symptoms Reported Past Egkkixs-Jizfsf-Wwnlre Hx Patient Social History Recent Hopitalizations: No Immunizations Up To Date Tetanus Booster (TDap): Unknown Date of Influenza Vaccine: Nov 24, 2014 Seasonal Allergies Seasonal Allergies: No Surgeries HX Surgeries: Yes Surgeries: Appendectomy, Orthopedic Respiratory Hx Respiratory Disorders: No Cardiovascular Hx Cardiac Disorders: Yes (chronic pedal edema) Cardiac Disorders: Chronic Edema/Swelling Neurological Hx Neurological Disorders: Yes (dementia) Reproductive System Hx Reproductive Disorders: No Sexually Transmitted Disease: No Genitourinary Hx Genitourinary Disorders: No Gastrointestinal Hx Gastrointestinal Disorders: Yes Gastrointestinal Disorders: Diverticulosis Musculoskeletal Hx Musculoskeletal Disorders: Yes (CHRONIC GENERALIZED PAIN, ESPECIALLY HIPS-- NARCOTIC DEPENDENCY AND ABUSE. ) Musculoskeletal Disorders: Arthritis Endocrine Hx Endocrine Disorders: No HEENT HX ENT Disorders: No Cancer Hx Cancer: No (per pt "brain tumor" unknown ) Psychosocial Hx Psychiatric Problems: Yes Behavioral Health Disorders: Anxiety, Depression Integumentary HX Skin/Integumentary Disorder: No Blood Transfusions Hx Blood Disorders: No Adverse Reaction to a Blood Tr: No Family Medical History Significant Family History: No Pertinent Family Hx Family Medial History: Patient reports no known family medical history. Physical Exam Vital Signs VS - Last 72 Hours, by Label 03/05/16 16:58 Temp 98.4 Pulse 132 Resp 18 B/P 134/106 Capillary Refill : General Appearance: WD/WN no apparent distress HEENT: PERRL/EOMI normal ENT inspection Neck: non-tender full range of motion Respiratory: normal breath sounds no respiratory distress no accessory muscle use Cardiovascular: no murmur tachycardia Gastrointestinal: normal bowel sounds soft tenderness (suprapubic) Extremities: normal range of motion non-tender Neurologic/Psychiatric: alert normal mood/affect oriented x 3 Skin: normal color warm/dry Progress/Results/Core Measures Results/Orders Lab Results Laboratory Tests Test 03/05/16 17:01 03/05/16 17:11 Range/Units Alanine Aminotransferase (ALT/SGPT) 12 0-55 U/L Albumin 3.8 3.2-4.5 G/DL Alkaline Phosphatase 61 40-136 U/L Anion Gap 7 5-14 MMOL/L Aspartate Amino Transf (AST/SGOT) 18 5-34 U/L BUN/Creatinine Ratio 13 Basophils # (Auto) 0.0 0.0-0.1 10^3/uL Basophils (%) (Auto) 1 0-10 % Blood Urea Nitrogen 10 7-18 MG/DL Calcium Level 9.8 8.5-10.1 MG/DL Carbon Dioxide Level 31 21-32 MMOL/L Chloride Level 99 98-107 MMOL/L Creatinine 0.79 0.60-1.30 MG/DL Eosinophils # (Auto) 0.2 0.0-0.3 10^3/uL Eosinophils (%) (Auto) 3 0-10 % Estimat Glomerular Filtration Rate > 60 Glucose Level 112 H 70-105 MG/DL Hematocrit 37 35-52 % Hemoglobin 12.2 11.5-16.0 G/DL Lymphocytes # (Auto) 1.1 1.0-4.0 X 10^3 Lymphocytes (%) (Auto) 18 12-44 % Mean Corpuscular Hemoglobin 31 25-34 PG Mean Corpuscular Hemoglobin Concent 33 32-36 G/DL Mean Corpuscular Volume 95 80-99 FL Mean Platelet Volume 9.2 7.4-10.4 FL Monocytes # (Auto) 0.5 0.0-1.0 X 10^3 Monocytes (%) (Auto) 9 0-12 % Neutrophils # (Auto) 4.0 1.8-7.8 X 10^3 Neutrophils (%) (Auto) 69 42-75 % Platelet Count 253 130-400 10^3/uL Potassium Level 4.2 3.6-5.0 MMOL/L Red Blood Count 3.94 L 4.35-5.85 10^6/uL Red Cell Distribution Width 13.0 10.0-14.5 % Sodium Level 137 135-145 MMOL/L Total Bilirubin 0.5 0.1-1.0 MG/DL Total Protein 6.7 6.4-8.2 G/DL White Blood Count 5.9 4.3-11.0 10^3/uL Urine Bacteria NEGATIVE /HPF Urine Bilirubin NEGATIVE NEGATIVE Urine Casts NONE /LPF Urine Clarity CLEAR Urine Color YELLOW Urine Crystals NONE /LPF Urine Culture Indicated NO Urine Glucose (UA) NEGATIVE NEGATIVE Urine Ketones NEGATIVE NEGATIVE Urine Leukocyte Esterase NEGATIVE NEGATIVE Urine Mucus NEGATIVE /LPF Urine Nitrite NEGATIVE NEGATIVE Urine Protein NEGATIVE NEGATIVE Urine RBC NONE /HPF Urine RBC (Auto) NEGATIVE NEGATIVE Urine Specific [place] 1.010 L 1.016-1.022 Urine Squamous Epithelial Cells 0-2 /HPF Urine Urobilinogen NORMAL NORMAL MG/DL Urine WBC 0-2 /HPF Urine pH 8 5-9 My Orders Orders-FEDERICA REYES APRN Cbc With Automated Diff (03/05/16 17:04) Comprehensive Metabolic Panel (03/05/16 17:04) Ua Culture If Indicated (03/05/16 17:04) Saline Lock/Iv-Start (03/05/16 17:04) Ns Iv 1000 Ml (Sodium Chloride 0.9%) (03/05/16 17:15) Fentanyl Injection (Sublimaze Injection (03/05/16 17:15) Acetaminophen Tablet (Tylenol Tablet) (03/05/16 17:45) Medications Given in ED Current Medications Medications Dose Ordered Sig/Kristi Route Start Time Stop Time Status Last Admin Dose Admin Acetaminophen 500 mg ONCE ONCE PO 03/05/16 17:45 03/05/16 17:46 DC 03/05/16 17:57 500 MG Vital Signs/I&O Vital Sign - Last 12Hours 03/05/16 16:58 Temp 98.4 Pulse 132 Resp 18 B/P 134/106 Departure Communication Progress Notes 1745- she states that her pain is better at this time despite no intervention by me. Still present but much better than upon arrival. 1800-patient did have a CT scan of the abdomen and pelvis done 8 days ago for the same complaint without abnormality demonstrated. Impression Impression: Primary Impression: Suprapubic abdominal pain Additional Impression: Non compliance w medication regimen Disposition: 01 HOME, SELF-CARE Condition: Stable Departure-Patient Inst. Decision time for Depature: 17:36 Referrals: BABAK TRIANA MD (PCP/Family) Primary Care Physician Patient Instructions: NO INSTRUCTIONS GIVEN Add. Discharge Instructions: 1. Follow-up with your doctor tomorrow 2. FEDERICA REYES APRN Mar 05, 2016 17:06
[2016-03-05 17:10] LABS: BASOPHILS % (AUTO) 1 % (0-10); EOSINOPHILS # (AUTO) 0.2 10^3/uL (0.0-0.3); EOSINOPHILS % (AUTO) 3 % (0-10); LYMPHOCYTES # (AUTO) 1.1 X 10^3 (1.0-4.0); LYMPHOCYTES % (AUTO) 18 % (12-44); MEAN CORPUSCULAR HEMOGLOBIN 31 PG (25-34); MEAN CORPUSCULAR HGB CONC 33 G/DL (32-36); MEAN CORPUSCULAR VOLUME 95 FL (80-99); MEAN PLATELET VOLUME 9.2 FL (7.4-10.4); MONOCYTES # (AUTO) 0.5 X 10^3 (0.0-1.0); MONOCYTES % (AUTO) 9 % (0-12); NEUTROPHILS % (AUTO) 69 % (42-75); PLATELET COUNT 253 10^3/uL (130-400); RED BLOOD COUNT 3.94 10^6/uL (4.35-5.85); WHITE BLOOD COUNT 5.9 10^3/uL (4.3-11.0)
[2016-03-05] MEDS ORDERED: fentaNYL INJECTION 100 MCG/2 ML AMP IVP ONE (17:15)
[2016-03-05] MEDS ORDERED: NS IV 1000 ML 1,000 ML IV SCH (17:15)
[2016-03-05 17:18] LABS: BILIRUBIN,URINE NEGATIVE (NEGATIVE); KETONES,URINE NEGATIVE (NEGATIVE); LEUKOCYTE ESTERASE ,URINE NEGATIVE (NEGATIVE); NITRITE,URINE NEGATIVE (NEGATIVE); PH,URINE 8 (5-9); PROTEIN,URINE NEGATIVE (NEGATIVE); UROBILINOGEN,URINE NORMAL (NORMAL)
[2016-03-05 17:28] LABS: ALANINE AMINOTRANSFERASE 12 U/L (0-55); ALBUMIN 3.8 G/DL (3.2-4.5); ANION GAP 7 MMOL/L (5-14); ASPARTATE AMINO TRANSFERASE 18 U/L (5-34); BILIRUBIN,TOTAL 0.5 MG/DL (0.1-1.0); BLOOD UREA NITROGEN 10 MG/DL (7-18); BUN/CREATININE RATIO 13; CALCIUM 9.8 MG/DL (8.5-10.1); CARBON DIOXIDE 31 MMOL/L (21-32); CHLORIDE 99 MMOL/L (98-107); CREATININE SERUM 0.79 MG/DL (0.60-1.30); GFR ESTIMATED > 60; GLUCOSE 112 MG/DL (70-105); POTASSIUM 4.2 MMOL/L (3.6-5.0); SODIUM 137 MMOL/L (135-145); TOTAL PROTEIN 6.7 G/DL (6.4-8.2)
[2016-03-05 17:31] LABS: SQUAMOUS EPITHELIAL CELL,UR 0-2 /HPF; WBC,URINE 0-2 /HPF
[2016-03-05] MEDS ORDERED: ACETAMINOPHEN 500 MG TAB (TYLENOL) PO ONE (17:45)
[2016-03-05 18:02] VITALS: BP 152/98
== END 2016-03-05 18:02 | disposition home or self-care (01) ==
LOC: EDUNIT# 16:58 → ER 16:59
DX: R10.30 Lower abdominal pain, unspecified (principal); Z91.14 Patient's other noncompliance with medication regimen; N39.0 Urinary tract infection, site not specified
CPT/HCPCS: 36415; 80053; 81000; 85025; 96360

== ENCOUNTER 2016-08-04 19:14 | Emergency (ER) | payer MEDICARE, MEDICAID ==
[~2016-08-04] VITALS: Ht 162.6 cm; Wt 61.2 kg
[2016-08-04] MEDS ORDERED: LORazepam INJ 2 MG/ML (ATIVAN) VIAL ONE (19:38)
[2016-08-04] MEDS ORDERED: LORazepam INJ 2 MG/ML (ATIVAN) VIAL IM ONE (19:45)
--- NOTE | 2016-08-04 19:46 | ED EENT ---
History of Present Illness General Chief Complaint: Eye Problems Stated Complaint: ANXIETY Nursing Triage Note: to ED 3 by [facility] with reports of overdose of restasis eye drops and eye irritation. Source: patient, EMS Exam Limitations: no limitations History of Present Illness Time seen by provider: 19:30 Initial Comments 80 yo female patient presents to the ED via EMS with c/o using at least 8-10 vials of restasis eye drops in the last 24-48 hrs. reports bilateral eye irritation. Location: eye (R), eye (L) Prearrival Treatment: no prearrival treatment Modifying Factors: Worse With Other (worse with eye drops.) Allergies and Home Medications Allergies Coded Allergies: No Known Drug Allergies (Unverified , 04/26/09) Home Medications Buspirone Hcl 5 Mg Tablet, 5 MG PO BID, (Reported) Clonazepam 0.5 Mg Tablet, 1 EACH PO BID, (Reported) Duloxetine Hcl 60 Mg Capsule.dr, 60 MG PO DAILY, (Reported) Famotidine 20 Mg Tablet, 20 MG PO BID, (Reported) Ferrous Sulfate 325 Mg Tablet, 325 MG PO HS, (Reported) Furosemide 40 Mg Tablet, 20 MG PO DAILY for 30 Days We will cut the 40mg tabs in half while you still have this prescription Prescribed by: WENDY DUNBAR on 04/12/14 1433 Furosemide 20 Mg Tablet, 20 MG PO UD, #30 Ref 0 1 po qAM Prescribed by: DEANA FUNEZ on 12/27/15 1854 Ipratropium/Albuterol Sulfate 3 Ml Ampul.neb, 3 ML IH, (Reported) Lorazepam 1 Mg Tab, 1 EACH PO DAILY PRN for ANXIETY, (Reported) Meloxicam 7.5 Mg Tablet, 1 EACH PO DAILY, (Reported) Prednisone 20 Mg Tab, 20 MG PO BID, #10 Ref 0 Prescribed by: DEANA FUNEZ on 06/07/15 1452 Trazodone Hcl 100 Mg Tablet, 100 MG PO HS, (Reported) Review of Systems Constitutional: no symptoms reported Eyes: See HPI Ears: No Symptoms Reported Nose: no symptoms reported Mouth: no symptoms reported Throat: no symptoms reported Respiratory: No cough, No short of breath Cardiovascular: No chest pain, No palpitations Gastrointestinal: No abdominal pain, No nausea, No vomiting Skin: no symptoms reported Neurological: No Symptoms Reported All Other Systems Reviewed Negative Unless Noted: Yes (Negative excepted noted.) Past Wktszbg-[id number]-Ioxluf Hx Patient Social History Alcohol Use: Denies Use Recreational Drug Use: No Smoking Status: Never a Smoker 2nd Hand Smoke Exposure: No Recent Foreign Travel: No Contact w/Someone Who Travel: No Recent Infectious Disease Expo: No Recent Hopitalizations: No Immunizations Up To Date Tetanus Booster (TDap): Unknown Date of Influenza Vaccine: Nov 24, 2014 Seasonal Allergies Seasonal Allergies: No Surgeries HX Surgeries: Yes Surgeries: Appendectomy, Orthopedic Respiratory Hx Respiratory Disorders: No Cardiovascular Hx Cardiac Disorders: Yes (chronic pedal edema) Cardiac Disorders: Chronic Edema/Swelling Neurological Hx Neurological Disorders: Yes (dementia) Neurological Disorders: Dementia Reproductive System Hx Reproductive Disorders: No Sexually Transmitted Disease: No Genitourinary Hx Genitourinary Disorders: Yes Genitourinary Disorders: Bladder Infection Gastrointestinal Hx Gastrointestinal Disorders: Yes Gastrointestinal Disorders: Diverticulosis Musculoskeletal Hx Musculoskeletal Disorders: Yes (CHRONIC GENERALIZED PAIN, ESPECIALLY HIPS-- NARCOTIC DEPENDENCY AND ABUSE. ) Musculoskeletal Disorders: Arthritis Endocrine Hx Endocrine Disorders: No HEENT HX ENT Disorders: No Cancer Hx Cancer: No (per pt "brain tumor" unknown ) Psychosocial Hx Psychiatric Problems: Yes Behavioral Health Disorders: Anxiety, Depression Integumentary HX Skin/Integumentary Disorder: No Blood Transfusions Hx Blood Disorders: No Adverse Reaction to a Blood Tr: No Reviewed Nursing Assessment Reviewed/Agree w Nursing PMH: Yes Family Medical History Significant Family History: No Pertinent Family Hx Family Medial History: Patient reports no known family medical history. Physical Exam Vital Signs Vital Sign - Last 12Hours 08/04/16 19:17 Temp 98.2 Pulse 125 Resp 26 B/P (MAP) 171/120 Pulse Ox 95 O2 Delivery Room Air General Appearance: cachetic, no apparent distress, other (chronically ill appearing female.) Eyes: bilateral eye EOMI, bilateral eye PERRL, bilateral eye conjunctival inflammation, bilateral eye other (tearing of the bilateral eyes) Nose: normal inspection Mouth/Throat: normal mouth inspection, pharynx normal Neck: supple, normal inspection Cardiovascular: regular rate, rhythm, no murmur Respiratory: lungs clear, normal breath sounds, no respiratory distress Neurologic/Psychiatric: alert, normal mood/affect, oriented x 3 Skin: normal color, warm/dry Progress/Results/Core Measures Results/Orders Lab Results Laboratory Tests Test 08/04/16 19:48 Range/Units White Blood Count 10.0 4.3-11.0 10^3/uL Red Blood Count 4.59 4.35-5.85 10^6/uL Hemoglobin 13.8 11.5-16.0 G/DL Hematocrit 43 35-52 % Mean Corpuscular Volume 93 80-99 FL Mean Corpuscular Hemoglobin 30 25-34 PG Mean Corpuscular Hemoglobin Concent 33 32-36 G/DL Red Cell Distribution Width 13.7 10.0-14.5 % Platelet Count 282 130-400 10^3/uL Mean Platelet Volume 9.3 7.4-10.4 FL Neutrophils (%) (Auto) 72 42-75 % Lymphocytes (%) (Auto) 16 12-44 % Monocytes (%) (Auto) 11 0-12 % Eosinophils (%) (Auto) 2 0-10 % Basophils (%) (Auto) 0 0-10 % Neutrophils # (Auto) 7.2 1.8-7.8 X 10^3 Lymphocytes # (Auto) 1.6 1.0-4.0 X 10^3 Monocytes # (Auto) 1.1 H 0.0-1.0 X 10^3 Eosinophils # (Auto) 0.2 0.0-0.3 10^3/uL Basophils # (Auto) 0.0 0.0-0.1 10^3/uL Sodium Level 138 135-145 MMOL/L Potassium Level 4.0 3.6-5.0 MMOL/L Chloride Level 101 98-107 MMOL/L Carbon Dioxide Level 26 21-32 MMOL/L Anion Gap 11 5-14 MMOL/L Blood Urea Nitrogen 19 H 7-18 MG/DL Creatinine 0.69 0.60-1.30 MG/DL Estimat Glomerular Filtration Rate > 60 BUN/Creatinine Ratio 28 Glucose Level 108 H 70-105 MG/DL Calcium Level 9.7 8.5-10.1 MG/DL Magnesium Level 2.3 1.8-2.4 MG/DL Total Bilirubin 0.3 0.1-1.0 MG/DL Aspartate Amino Transf (AST/SGOT) 30 5-34 U/L Alanine Aminotransferase (ALT/SGPT) 41 0-55 U/L Alkaline Phosphatase 65 40-136 U/L Troponin I < 0.30 <0.30 NG/ML Total Protein 7.0 6.4-8.2 G/DL Albumin 3.8 3.2-4.5 G/DL TSH Kay Testing 1.19 0.35-4.94 UIU/ML Salicylates Level < 5.0 L 5.0-20.0 MG/DL Acetaminophen Level < 10 L 10-30 UG/ML Serum Alcohol < 10 <10 MG/DL My Orders Orders - DEANA FUNEZ Acetaminophen (08/04/16 19:35) Alcohol (08/04/16 19:35) Cbc With Automated Diff (08/04/16 19:35) Comprehensive Metabolic Panel (08/04/16 19:35) Magnesium (08/04/16 19:35) Salicylate (08/04/16 19:35) Thyroid Analyzer (08/04/16 19:35) Troponin I (08/04/16 19:35) Ekg Tracing (08/04/16 19:35) Lorazepam Injection (Ativan Injection) (08/04/16 19:45) Lorazepam Injection (Ativan Injection) (08/04/16 19:38) Medications Given in ED Current Medications Medications Dose Ordered Sig/Kristi Route Start Time Stop Time Status Last Admin Dose Admin Lorazepam 1 mg ONCE ONCE IM 08/04/16 19:45 08/04/16 19:46 DC 08/04/16 19:49 1 MG Vital Signs/I&O Vital Sign - Last 12Hours 08/04/16 08/04/16 08/04/16 19:17 19:49 21:48 Temp 98.2 98.2 98.2 Pulse 125 101 Resp 26 16 B/P (MAP) 171/120 Pulse Ox 95 98 O2 Delivery Room Air Room Air Blood Pressure Mean: 137 Departure Communication Progress Notes poison control contacted by ED RN, Tomas Good. Recommendations by poison control are for baseline labs. If no evidence of hypo/hypermagnesemia or hypo/ hyperkalemia, ok to [facility] patient to home. all laboratory findings discussed with the patient. plan for dsch to home. patient advised to hold the restasis drops until released by her eye doctor. Patient voices understanding and agrees with the treatment plan. Impression Impression: Primary Impression: Overuse of medication Disposition: HOME, SELF-CARE Condition: Improved Departure-Patient Inst. Decision time for Depature: 21:28 Referrals: BABAK TRIANA MD (PCP/Family) Primary Care Physician Patient Instructions: Medication Safety, Adult Add. Discharge Instructions: All discharge instructions reviewed with patient and/or family. Voiced understanding. Do not use Restasis eyedrops until instructed by your physician. Take medications as prescribed by your physician. DO NOT overuse medications. Follow-up with Dr. Triana this for recheck. Call for appointment time tomorrow morning. Return to the emergency department for worsened symptoms or any other concerns. DEANA FUNEZ Aug 04, 2016 19:46
[2016-08-04 19:56] LABS: BASOPHILS % (AUTO) 0 % (0-10); EOSINOPHILS # (AUTO) 0.2 10^3/uL (0.0-0.3); EOSINOPHILS % (AUTO) 2 % (0-10); LYMPHOCYTES # (AUTO) 1.6 X 10^3 (1.0-4.0); LYMPHOCYTES % (AUTO) 16 % (12-44); MEAN CORPUSCULAR HEMOGLOBIN 30 PG (25-34); MEAN CORPUSCULAR HGB CONC 33 G/DL (32-36); MEAN CORPUSCULAR VOLUME 93 FL (80-99); MEAN PLATELET VOLUME 9.3 FL (7.4-10.4); MONOCYTES # (AUTO) 1.1 X 10^3 (0.0-1.0); MONOCYTES % (AUTO) 11 % (0-12); NEUTROPHILS # (AUTO) 7.2 X 10^3 (1.8-7.8); NEUTROPHILS % (AUTO) 72 % (42-75); PLATELET COUNT 282 10^3/uL (130-400); RED BLOOD COUNT 4.59 10^6/uL (4.35-5.85); RED CELL DISTRIBUTION WIDTH 13.7 % (10.0-14.5)
[2016-08-04 20:14] LABS: ACETAMINOPHEN < 10 UG/ML (10-30); ALANINE AMINOTRANSFERASE 41 U/L (0-55); ALBUMIN 3.8 G/DL (3.2-4.5); ANION GAP 11 MMOL/L (5-14); ASPARTATE AMINO TRANSFERASE 30 U/L (5-34); BILIRUBIN,TOTAL 0.3 MG/DL (0.1-1.0); BLOOD UREA NITROGEN 19 MG/DL (7-18); BUN/CREATININE RATIO 28; CALCIUM 9.7 MG/DL (8.5-10.1); CARBON DIOXIDE 26 MMOL/L (21-32); CHLORIDE 101 MMOL/L (98-107); CREATININE SERUM 0.69 MG/DL (0.60-1.30); GFR ESTIMATED > 60; GLUCOSE 108 MG/DL (70-105); MAGNESIUM 2.3 MG/DL (1.8-2.4); SALICYLATE < 5.0 MG/DL (5.0-20.0); SODIUM 138 MMOL/L (135-145)
[2016-08-04 20:15] LABS: ALCOHOL < 10 MG/DL (<10)
[2016-08-04 20:33] LABS: TROPONIN I < 0.30 NG/ML (<0.30)
[2016-08-04 21:48] VITALS: BP 140/79
== END 2016-08-04 21:48 | disposition home or self-care (01) ==
LOC: EDUNIT# 19:14 → ER 19:15
DX: T49.5X1A Poisoning by ophthalmological drugs and preparations, accidental (unintentional), initial encounter (principal)
CPT/HCPCS: 36415; 80053; 80320; 80329; 83735; 84443; 84484; 85025; 93005

== ENCOUNTER 2016-08-20 16:55 | Emergency (ER) | payer MEDICARE, MEDICAID ==
[~2016-08-20] VITALS: Ht 160 cm; Wt 68.0 kg
--- OUTSIDE RECORDS SUMMARY | 2016-08-20 17:10 | XMS REPORT | Continuity of Care Document ---
Author Author [facility] Address Unknown Phone Unavailable Allergies Active Description Code Type Severity Reaction Onset Reported/Identified Relationship to Patient Clinical Status Yes No Known Drug Allergies [id number] Drug Allergy Mild N/A 04/26/2009 Medications Problems Date Dx Coded Attending Type Code Diagnosis Diagnosed By 09/08/2007 ARGELIA ATKINSON DO 702.0 ACTINIC KERATOSIS 09/08/2007 ARGELIA ATKINSON DO 715.90 OSTEOARTHRITIS 09/08/2007 ARGELIA ATKINSON DO 733.90 DISORDER OF BONE AND CARTILAGE UNSPECIFIED 09/08/2007 ARGELIA ATKINSON DO 702.0 ACTINIC KERATOSIS 09/08/2007 ARGELIA ATKINSON DO 715.90 OSTEOARTHRITIS 09/08/2007 ARGELIA ATKINSON DO 733.90 DISORDER OF BONE AND CARTILAGE UNSPECIFIED 09/08/2007 702.0 ACTINIC KERATOSIS 09/08/2007 715.90 OSTEOARTHRITIS 09/08/2007 733.90 DISORDER OF BONE AND CARTILAGE UNSPECIFIED 09/08/2007 ARGELIA ATKINSON DO 702.0 ACTINIC KERATOSIS 09/08/2007 ARGELIA ATKINSON DO 715.90 OSTEOARTHRITIS 09/08/2007 ARGELIA ATKINSON DO 733.90 DISORDER OF BONE AND CARTILAGE UNSPECIFIED 09/08/2007 ARGELIA ATKINSON DO 702.0 ACTINIC KERATOSIS 09/08/2007 ARGELIA ATKINSON DO 715.90 OSTEOARTHRITIS 09/08/2007 ARGELIA ATKINSON DO 733.90 DISORDER OF BONE AND CARTILAGE UNSPECIFIED 09/08/2007 702.0 ACTINIC KERATOSIS 09/08/2007 715.90 OSTEOARTHRITIS 09/08/2007 733.90 DISORDER OF BONE AND CARTILAGE UNSPECIFIED 09/08/2007 702.0 ACTINIC KERATOSIS 09/08/2007 715.90 OSTEOARTHRITIS 09/08/2007 733.90 DISORDER OF BONE AND CARTILAGE UNSPECIFIED 09/08/2007 702.0 ACTINIC KERATOSIS 09/08/2007 715.90 OSTEOARTHRITIS 09/08/2007 733.90 DISORDER OF BONE AND CARTILAGE UNSPECIFIED 09/08/2007 702.0 ACTINIC KERATOSIS 09/08/2007 715.90 OSTEOARTHRITIS 09/08/2007 733.90 DISORDER OF BONE AND CARTILAGE UNSPECIFIED 09/08/2007 702.0 ACTINIC KERATOSIS 09/08/2007 715.90 OSTEOARTHRITIS 09/08/2007 733.90 DISORDER OF BONE AND CARTILAGE UNSPECIFIED 09/08/2007 702.0 ACTINIC KERATOSIS 09/08/2007 715.90 OSTEOARTHRITIS 09/08/2007 733.90 DISORDER OF BONE AND CARTILAGE UNSPECIFIED 09/08/2007 702.0 ACTINIC KERATOSIS 09/08/2007 715.90 OSTEOARTHRITIS 09/08/2007 733.90 DISORDER OF BONE AND CARTILAGE UNSPECIFIED 09/08/2007 702.0 ACTINIC KERATOSIS 09/08/2007 715.90 OSTEOARTHRITIS 09/08/2007 733.90 DISORDER OF BONE AND CARTILAGE UNSPECIFIED 09/08/2007 ALANA GOLD APRN S 702.0 ACTINIC KERATOSIS 09/08/2007 ALANA GOLD APRN S 715.90 OSTEOARTHRITIS 09/08/2007 ASIF POLANCO ALANA S 733.90 DISORDER OF BONE AND CARTILAGE UNSPECIFIED 09/08/2007 ATKINSON DO, ARGELIA K 702.0 ACTINIC KERATOSIS 09/08/2007 ATKINSON DO ARGELIA K 715.90 OSTEOARTHRITIS 09/08/2007 ATKINSON DO, ARGELIA K 733.90 DISORDER OF BONE AND CARTILAGE UNSPECIFIED 09/08/2007 ATKINSON DO, ARGELIA K 702.0 ACTINIC KERATOSIS 09/08/2007 ATKINSON DO, ARGELIA K 715.90 OSTEOARTHRITIS 09/08/2007 ATKINSON DO, ARGELIA K 733.90 DISORDER OF BONE AND CARTILAGE UNSPECIFIED 09/08/2007 ATKINSON DO, ARGELIA K 702.0 ACTINIC KERATOSIS 09/08/2007 ATKINSON DO, ARGELIA K 715.90 OSTEOARTHRITIS 09/08/2007 ATKINSON DO, ARGELIA K 733.90 DISORDER OF BONE AND CARTILAGE UNSPECIFIED 09/08/2007 ATKINSON DO, ARGELIA K 702.0 ACTINIC KERATOSIS 09/08/2007 ATKINSON DO, ARGELIA K 715.90 OSTEOARTHRITIS 09/08/2007 ATKINSON DO, ARGELIA K 733.90 DISORDER OF BONE AND CARTILAGE UNSPECIFIED 09/08/2007 ATKINSON DO, ARGELIA K 702.0 ACTINIC KERATOSIS 09/08/2007 ATKINSON DO, ARGELIA K 715.90 OSTEOARTHRITIS 09/08/2007 ATKINSON DO, ARGELIA K 733.90 DISORDER OF BONE AND CARTILAGE UNSPECIFIED 09/08/2007 ATKINSON DO, ARGELIA K 702.0 ACTINIC KERATOSIS 09/08/2007 ATKINSON DO, ARGELIA K 715.90 OSTEOARTHRITIS 09/08/2007 ATKINSON DO, ARGELIA K 733.90 DISORDER OF BONE AND CARTILAGE UNSPECIFIED 09/08/2007 ATKINSON DO, ARGELIA K 702.0 ACTINIC KERATOSIS 09/08/2007 ATKINSON DO, ARGELIA K 715.90 OSTEOARTHRITIS 09/08/2007 ATKINSON DO, ARGELIA K 733.90 DISORDER OF BONE AND CARTILAGE UNSPECIFIED 09/08/2007 ATKINSON DO, ARGELIA K 702.0 ACTINIC KERATOSIS 09/08/2007 ATKINSON DO, ARGELIA K 715.90 OSTEOARTHRITIS 09/08/2007 ATKINSON DO, ARGELIA K 733.90 DISORDER OF BONE AND CARTILAGE UNSPECIFIED 09/08/2007 BABAK TRIANA MD N 702.0 ACTINIC KERATOSIS 09/08/2007 BABAK TRIANA MD N 715.90 OSTEOARTHRITIS 09/08/2007 BABAK TRIANA MD N 733.90 DISORDER OF BONE AND CARTILAGE UNSPECIFIED 09/08/2007 BABAK TRIANA MD N 702.0 ACTINIC KERATOSIS 09/08/2007 BABAK TRIANA MD N 715.90 OSTEOARTHRITIS 09/08/2007 BABAK TRIANA MD N 733.90 DISORDER OF BONE AND CARTILAGE UNSPECIFIED 09/08/2007 BABAK TRIANA MD N 702.0 ACTINIC KERATOSIS 09/08/2007 BABAK TRIANA MD N 715.90 OSTEOARTHRITIS 09/08/2007 BABAK TRIANA MD N 733.90 DISORDER OF BONE AND CARTILAGE UNSPECIFIED 09/08/2007 BABAK TRIANA MD N 702.0 ACTINIC KERATOSIS 09/08/2007 BABAK TRIANA MD N 715.90 OSTEOARTHRITIS 09/08/2007 BABAK TRIANA MD N 733.90 DISORDER OF BONE AND CARTILAGE UNSPECIFIED 09/08/2007 BABAK TRIANA MD N 702.0 ACTINIC KERATOSIS 09/08/2007 BABAK TRIANA MD N 715.90 OSTEOARTHRITIS 09/08/2007 BABAK TRIANA MD N 733.90 DISORDER OF BONE AND CARTILAGE UNSPECIFIED 09/08/2007 TYRELL GOLD APRNA S 702.0 ACTINIC KERATOSIS 09/08/2007 TYRELL GOLD APRNA S 715.90 OSTEOARTHRITIS 09/08/2007 TYRELL GOLD APRNA S 733.90 DISORDER OF BONE AND CARTILAGE UNSPECIFIED 09/08/2007 ATKINSON DO ARGELIA K 702.0 ACTINIC KERATOSIS 09/08/2007 [place] CANO ARGELIA K 715.90 OSTEOARTHRITIS 09/08/2007 ATKINSON DO ARGELIA K 733.90 DISORDER OF BONE AND CARTILAGE UNSPECIFIED 09/08/2007 ATKINSON DO ARGELIA K 702.0 ACTINIC KERATOSIS 09/08/2007 [place] CANO ARGELIA K 715.90 OSTEOARTHRITIS 09/08/2007 [place] CANO ARGELIA K 733.90 DISORDER OF BONE AND CARTILAGE UNSPECIFIED 09/08/2007 ATKINSON DO ARGELIA K 702.0 ACTINIC KERATOSIS 09/08/2007 ATKINSON DO ARGELIA K 715.90 OSTEOARTHRITIS 09/08/2007 ATKINSON DO ARGELIA K 733.90 DISORDER OF BONE AND CARTILAGE UNSPECIFIED 09/08/2007 BABAK TRIANA MD N 702.0 ACTINIC KERATOSIS 09/08/2007 BABAK TRIANA MD N 715.90 OSTEOARTHRITIS 09/08/2007 BABAK TRIANA MD N 733.90 DISORDER OF BONE AND CARTILAGE UNSPECIFIED 11/11/2007 [place] CANO ARGELIA K 716.90 ARTHRITIS 11/11/2007 ATKINSON DO ARGELIA K V72.31 Pelvic Exam (Internal) 11/11/2007 ATKINSON DO ARGELIA K 716.90 ARTHRITIS 11/11/2007 ATKINSON DO ARGELIA K V72.31 Pelvic Exam (Internal) 11/11/2007 716.90 ARTHRITIS 11/11/2007 V72.31 Pelvic Exam (Internal) 11/11/2007 ATKINSON DO ARGELIA K 716.90 ARTHRITIS 11/11/2007 ATKINSON DO ARGELIA K V72.31 Pelvic Exam (Internal) 11/11/2007 ATKINSON DO, ARGELIA K 716.90 ARTHRITIS 11/11/2007 ATKINSON DO, ARGELIA K V72.31 Pelvic Exam (Internal) 11/11/2007 716.90 ARTHRITIS 11/11/2007 V72.31 Pelvic Exam (Internal) 11/11/2007 716.90 ARTHRITIS 11/11/2007 V72.31 Pelvic Exam (Internal) 11/11/2007 716.90 ARTHRITIS 11/11/2007 V72.31 Pelvic Exam (Internal) 11/11/2007 716.90 ARTHRITIS 11/11/2007 V72.31 Pelvic Exam (Internal) 11/11/2007 716.90 ARTHRITIS 11/11/2007 V72.31 Pelvic Exam (Internal) 11/11/2007 716.90 ARTHRITIS 11/11/2007 V72.31 Pelvic Exam (Internal) 11/11/2007 716.90 ARTHRITIS 11/11/2007 V72.31 Pelvic Exam (Internal) 11/11/2007 716.90 ARTHRITIS 11/11/2007 V72.31 Pelvic Exam (Internal) 11/11/2007 ALANA GOLD APRN S 716.90 ARTHRITIS 11/11/2007 ALANA GOLD APRN S V72.31 Pelvic Exam (Internal) 11/11/2007 ATKINSON DO ARGELIA K 716.90 ARTHRITIS 11/11/2007 ATKNISON DO ARGELIA K V72.31 Pelvic Exam (Internal) 11/11/2007 ATKINSON DO, ARGELIA K 716.90 ARTHRITIS 11/11/2007 ATKINSON DO, ARGELIA K V72.31 Pelvic Exam (Internal) 11/11/2007 ATKINSON DO ARGELIA K 716.90 ARTHRITIS 11/11/2007 ATKINSON DO, ARGELIA K V72.31 Pelvic Exam (Internal) 11/11/2007 ATKINSON DO, ARGELIA K 716.90 ARTHRITIS 11/11/2007 ATKINSON DO, ARGELIA K V72.31 Pelvic Exam (Internal) 11/11/2007 ATKINSON DO, ARGELIA K 716.90 ARTHRITIS 11/11/2007 ATKINSON DO, ARGELIA K V72.31 Pelvic Exam (Internal) 11/11/2007 ATKINSON DO, ARGELIA K 716.90 ARTHRITIS 11/11/2007 ATKINSON DO, ARGELIA K V72.31 Pelvic Exam (Internal) 11/11/2007 ATKINSON DO ARGELIA K 716.90 ARTHRITIS 11/11/2007 ATKINSON DO, ARGELIA K V72.31 Pelvic Exam (Internal) 11/11/2007 ATKINSON DO, ARGELIA K 716.90 ARTHRITIS 11/11/2007 ATKINSON DO, ARGELIA K V72.31 Pelvic Exam (Internal) 11/11/2007 BABAK TRIANA MD 716.90 ARTHRITIS 11/11/2007 BABAK TRIANA MD N V72.31 Pelvic Exam (Internal) 11/11/2007 BABAK TRIANA MD N 716.90 ARTHRITIS 11/11/2007 BABAK TRIANA MD N V72.31 Pelvic Exam (Internal) 11/11/2007 BABAK TRIANA MD N 716.90 ARTHRITIS 11/11/2007 BABAK TRIANA MD V72.31 Pelvic Exam (Internal) 11/11/2007 BABAK TRIANA MD 716.90 ARTHRITIS 11/11/2007 BABAK TRIANA MD N V72.31 Pelvic Exam (Internal) 11/11/2007 BABAK TRIANA MD 716.90 ARTHRITIS 11/11/2007 BABAK TRIANA MD N V72.31 Pelvic Exam (Internal) 11/11/2007 ALANA GOLD APRN S 716.90 ARTHRITIS 11/11/2007 ALANA GOLD APRN S V72.31 Pelvic Exam (Internal) 11/11/2007 [place] DO ARGELIA K 716.90 ARTHRITIS 11/11/2007 ATKINSON DO ARGELIA K V72.31 Pelvic Exam (Internal) 11/11/2007 TIN ATKINSON DOA K 716.90 ARTHRITIS 11/11/2007 ATKINSON DO ARGELIA K V72.31 Pelvic Exam (Internal) 11/11/2007 ATKINSON DO ARGELIA K 716.90 ARTHRITIS 11/11/2007 ATKINSON DO ARGELIA K V72.31 Pelvic Exam (Internal) 11/11/2007 BABAK TRIANA MD N 716.90 ARTHRITIS 11/11/2007 BABAK TRIANA MD N V72.31 Pelvic Exam (Internal) 11/30/2007 TIN ATKINSON DOA K 724.2 lower back pain 11/30/2007 ATKINSON TIN CANOA K 724.2 lower back pain 11/30/2007 724.2 lower back pain 11/30/2007 ATKINSON DO, ARGELIA K 724.2 lower back pain 11/30/2007 ATKINSON DO, ARGELIA K 724.2 lower back pain 11/30/2007 724.2 lower back pain 11/30/2007 724.2 lower back pain 11/30/2007 724.2 lower back pain 11/30/2007 724.2 lower back pain 11/30/2007 724.2 lower back pain 11/30/2007 724.2 lower back pain 11/30/2007 724.2 lower back pain 11/30/2007 724.2 lower back pain 11/30/2007 ALANA GOLD APRN S 724.2 lower back pain 11/30/2007 ATKINSON DO, ARGELIA K 724.2 lower back pain 11/30/2007 ATKINSON DO, ARGELIA K 724.2 lower back pain 11/30/2007 ATKINSON DO, ARGELIA K 724.2 lower back pain 11/30/2007 ATKINSON DO, ARGELIA K 724.2 lower back pain 11/30/2007 ATKINSON DO, ARGELIA K 724.2 lower back pain 11/30/2007 ATKINSON DO, ARGELIA K 724.2 lower back pain 11/30/2007 ATKINSON DO, ARGELIA K 724.2 lower back pain 11/30/2007 ATKINSON DO, ARGELIA K 724.2 lower back pain 11/30/2007 BABAK TRIANA MD N 724.2 lower back pain 11/30/2007 BABAK TRIANA MD N 724.2 lower back pain 11/30/2007 BAABK TRIANA MD N 724.2 lower back pain 11/30/2007 BABAK TRIANA MD N 724.2 lower back pain 11/30/2007 BABAK TRIANA MD N 724.2 lower back pain 11/30/2007 ALANA GOLD APRN S 724.2 lower back pain 11/30/2007 ATKINSON DO, ARGELIA K 724.2 lower back pain 11/30/2007 ATKINSON DO, ARGELIA K 724.2 lower back pain 11/30/2007 ATKINSON DO, ARGELIA K 724.2 lower back pain 11/30/2007 BABAK TRIANA MD N 724.2 lower back pain 12/08/2007 ATKINSON DO, ARGELIA K 599.0 URINARY TRACT INFECTION 12/08/2007 ATKINSON DO, ARGELIA K 788.1 pain during urination (dysuria) 12/08/2007 ATKINSON DO, ARGELIA K 599.0 URINARY TRACT INFECTION 12/08/2007 ATKINSON DO, ARGELIA K 788.1 pain during urination (dysuria) 12/08/2007 599.0 URINARY TRACT INFECTION 12/08/2007 788.1 pain during urination (dysuria) 12/08/2007 ATKINSON DO, ARGELIA K 599.0 URINARY TRACT INFECTION 12/08/2007 ATKINSON DO, ARGELIA K 788.1 pain during urination (dysuria) 12/08/2007 ATKINSON DO, ARGELIA K 599.0 URINARY TRACT INFECTION 12/08/2007 ATKINSON DO, ARGELIA K 788.1 pain during urination (dysuria) 12/08/2007 599.0 URINARY TRACT INFECTION 12/08/2007 788.1 pain during urination (dysuria) 12/08/2007 599.0 URINARY TRACT INFECTION 12/08/2007 788.1 pain during urination (dysuria) 12/08/2007 599.0 URINARY TRACT INFECTION 12/08/2007 788.1 pain during urination (dysuria) 12/08/2007 599.0 URINARY TRACT INFECTION 12/08/2007 788.1 pain during urination (dysuria) 12/08/2007 599.0 URINARY TRACT INFECTION 12/08/2007 788.1 pain during urination (dysuria) 12/08/2007 599.0 URINARY TRACT INFECTION 12/08/2007 788.1 pain during urination (dysuria) 12/08/2007 599.0 URINARY TRACT INFECTION 12/08/2007 788.1 pain during urination (dysuria) 12/08/2007 599.0 URINARY TRACT INFECTION 12/08/2007 788.1 pain during urination (dysuria) 12/08/2007 ALANA GOLD APRN S 599.0 URINARY TRACT INFECTION 12/08/2007 ALANA GOLD APRN S 788.1 pain during urination (dysuria) 12/08/2007 ATKINSON DO, ARGELIA K 599.0 URINARY TRACT INFECTION 12/08/2007 ATKINSON DO, ARGELIA K 788.1 pain during urination (dysuria) 12/08/2007 ATKINSON DO, ARGELIA K 599.0 URINARY TRACT INFECTION 12/08/2007 ATKINSON DO, ARGELIA K 788.1 pain during urination (dysuria) 12/08/2007 ATKINSON DO, ARGELIA K 599.0 URINARY TRACT INFECTION 12/08/2007 ATKINSON DO, ARGELIA K 788.1 pain during urination (dysuria) 12/08/2007 ATKINSON DO, ARGELIA K 599.0 URINARY TRACT INFECTION 12/08/2007 ATKINSON DO, ARGELIA K 788.1 pain during urination (dysuria) 12/08/2007 ATKINSON DO, ARGELIA K 599.0 URINARY TRACT INFECTION 12/08/2007 ATKINSON DO, ARGELIA K 788.1 pain during urination (dysuria) 12/08/2007 ATKINSON DO, ARGELIA K 599.0 URINARY TRACT INFECTION 12/08/2007 ATKINSON DO, ARGELIA K 788.1 pain during urination (dysuria) 12/08/2007 ATKINSON DO, ARGELIA K 599.0 URINARY TRACT INFECTION 12/08/2007 ATKINSON DO, ARGELIA K 788.1 pain during urination (dysuria) 12/08/2007 ATKINSON DO, ARGELIA K 599.0 URINARY TRACT INFECTION 12/08/2007 ATKINSON DO, ARGELIA K 788.1 pain during urination (dysuria) 12/08/2007 BABAK TRIANA MD N 599.0 URINARY TRACT INFECTION 12/08/2007 BABAK TRIANA MD N 788.1 pain during urination (dysuria) 12/08/2007 BABAK TRIANA MD N 599.0 URINARY TRACT INFECTION 12/08/2007 BABAK TRIANA MD N 788.1 pain during urination (dysuria) 12/08/2007 BABAK TRIANA MD N 599.0 URINARY TRACT INFECTION 12/08/2007 BABAK TRIANA MD N 788.1 pain during urination (dysuria) 12/08/2007 BABAK TRIANA MD N 599.0 URINARY TRACT INFECTION 12/08/2007 BABAK TRIANA MD N 788.1 pain during urination (dysuria) 12/08/2007 BABAK TRIANA MD N 599.0 URINARY TRACT INFECTION 12/08/2007 BABAK TRIANA MD N 788.1 pain during urination (dysuria) 12/08/2007 ALANA GOLD APRN S 599.0 URINARY TRACT INFECTION 12/08/2007 ALANA GOLD APRN S 788.1 pain during urination (dysuria) 12/08/2007 ATKINSON DO, ARGELIA K 599.0 URINARY TRACT INFECTION 12/08/2007 ATKINSON DO, ARGELIA K 788.1 pain during urination (dysuria) 12/08/2007 ATKINSON DO, ARGELIA K 599.0 URINARY TRACT INFECTION 12/08/2007 ATKINSON DO, ARGELIA K 788.1 pain during urination (dysuria) 12/08/2007 ATKINSON DO, ARGELIA K 599.0 URINARY TRACT INFECTION 12/08/2007 ATKINSON DO, ARGELIA K 788.1 pain during urination (dysuria) 12/08/2007 BABAK TRIANA MD N 599.0 URINARY TRACT INFECTION 12/08/2007 BABAK TRIANA MD 788.1 pain during urination (dysuria) 02/01/2008 ATKINSON DO, ARGELIA K 338.4 CHRONIC PAIN SYNDROME 02/01/2008 ATKINSON DO, ARGELIA K 338.4 CHRONIC PAIN SYNDROME 02/01/2008 338.4 CHRONIC PAIN SYNDROME 02/01/2008 ATKINSON DO, ARGELIA K 338.4 CHRONIC PAIN SYNDROME 02/01/2008 ATKINSON DO, ARGELIA K 338.4 CHRONIC PAIN SYNDROME 02/01/2008 338.4 CHRONIC PAIN SYNDROME 02/01/2008 338.4 CHRONIC PAIN SYNDROME 02/01/2008 338.4 CHRONIC PAIN SYNDROME 02/01/2008 338.4 CHRONIC PAIN SYNDROME 02/01/2008 338.4 CHRONIC PAIN SYNDROME 02/01/2008 338.4 CHRONIC PAIN SYNDROME 02/01/2008 338.4 CHRONIC PAIN SYNDROME 02/01/2008 338.4 CHRONIC PAIN SYNDROME 02/01/2008 ALANA GOLD APRN S 338.4 CHRONIC PAIN SYNDROME 02/01/2008 ATKINSON DO, ARGELIA K 338.4 CHRONIC PAIN SYNDROME 02/01/2008 ATKINSON DO, ARGELIA K 338.4 CHRONIC PAIN SYNDROME 02/01/2008 ATKINSON DO, ARGELIA K 338.4 CHRONIC PAIN SYNDROME 02/01/2008 ATKINSON DO, ARGELIA K 338.4 CHRONIC PAIN SYNDROME 02/01/2008 ATKINSON DO, ARGELIA K 338.4 CHRONIC PAIN SYNDROME 02/01/2008 ATKINSON DO, ARGELIA K 338.4 CHRONIC PAIN SYNDROME 02/01/2008 ATKINSON DO, ARGELIA K 338.4 CHRONIC PAIN SYNDROME 02/01/2008 ATKINSON DO, ARGELIA K 338.4 CHRONIC PAIN SYNDROME 02/01/2008 KONG GREWAL, BABAK N 338.4 CHRONIC PAIN SYNDROME 02/01/2008 KONG GREWAL, BABAK N 338.4 CHRONIC PAIN SYNDROME 02/01/2008 KONG GREWAL, BABAK N 338.4 CHRONIC PAIN SYNDROME 02/01/2008 KONG GREWAL, BABAK N 338.4 CHRONIC PAIN SYNDROME 02/01/2008 KONG GREWAL, BABAK N 338.4 CHRONIC PAIN SYNDROME 02/01/2008 ALANA GOLD APRN 338.4 CHRONIC PAIN SYNDROME 02/01/2008 ATKINSON DO, ARGELIA K 338.4 CHRONIC PAIN SYNDROME 02/01/2008 ATKINSON DO, ARGELIA K 338.4 CHRONIC PAIN SYNDROME 02/01/2008 ATKINSON DO, ARGELIA K 338.4 CHRONIC PAIN SYNDROME 02/01/2008 KONG GREWAL, BABAK N 338.4 CHRONIC PAIN SYNDROME 05/11/2008 ATKINSON DO, ARGELIA K 729.81 (Lower) Leg Localized Swelling Bilateral 05/11/2008 ATKINSON DO, ARGELIA K 729.81 (Lower) Leg Localized Swelling Bilateral 05/11/2008 729.81 (Lower) Leg Localized Swelling Bilateral 05/11/2008 ATKINSON DO, ARGELIA K 729.81 (Lower) Leg Localized Swelling Bilateral 05/11/2008 ATKINSON DO, ARGELIA K 729.81 (Lower) Leg Localized Swelling Bilateral 05/11/2008 729.81 (Lower) Leg Localized Swelling Bilateral 05/11/2008 729.81 (Lower) Leg Localized Swelling Bilateral 05/11/2008 729.81 (Lower) Leg Localized Swelling Bilateral 05/11/2008 729.81 (Lower) Leg Localized Swelling Bilateral 05/11/2008 729.81 (Lower) Leg Localized Swelling Bilateral 05/11/2008 729.81 (Lower) Leg Localized Swelling Bilateral 05/11/2008 729.81 (Lower) Leg Localized Swelling Bilateral 05/11/2008 729.81 (Lower) Leg Localized Swelling Bilateral 05/11/2008 ALANA GOLD APRN S 729.81 (Lower) Leg Localized Swelling Bilateral 05/11/2008 ATKINSON DO, ARGELIA K 729.81 (Lower) Leg Localized Swelling Bilateral 05/11/2008 ATKINSON DO, ARGELIA K 729.81 (Lower) Leg Localized Swelling Bilateral 05/11/2008 ATKINSON DO, ARGELIA K 729.81 (Lower) Leg Localized Swelling Bilateral 05/11/2008 ATKINSON DO, ARGELIA K 729.81 (Lower) Leg Localized Swelling Bilateral 05/11/2008 TAKINSON DO, ARGELIA K 729.81 (Lower) Leg Localized Swelling Bilateral 05/11/2008 ATKINSON DO, ARGELIA K 729.81 (Lower) Leg Localized Swelling Bilateral 05/11/2008 ATKINSON DO, ARGELIA K 729.81 (Lower) Leg Localized Swelling Bilateral 05/11/2008 ATKINSON DO, ARGELIA K 729.81 (Lower) Leg Localized Swelling Bilateral 05/11/2008 BABAK TRIANA MD N 729.81 (Lower) Leg Localized Swelling Bilateral 05/11/2008 KATHLEEN TRIANA MDY N 729.81 (Lower) Leg Localized Swelling Bilateral 05/11/2008 KATHLEEN TRIANA MDY N 729.81 (Lower) Leg Localized Swelling Bilateral 05/11/2008 KONG GREWAL BABAK N 729.81 (Lower) Leg Localized Swelling Bilateral 05/11/2008 KONG GREWAL BABAK N 729.81 (Lower) Leg Localized Swelling Bilateral 05/11/2008 ALANA GOLD APRN S 729.81 (Lower) Leg Localized Swelling Bilateral 05/11/2008 ATKINSON DO, ARGELIA K 729.81 (Lower) Leg Localized Swelling Bilateral 05/11/2008 ATKINSON DO, ARGELIA K 729.81 (Lower) Leg Localized Swelling Bilateral 05/11/2008 ATKINSON DO, ARGELIA K 729.81 (Lower) Leg Localized Swelling Bilateral 05/11/2008 KONG GREWAL BABAK N 729.81 (Lower) Leg Localized Swelling Bilateral 07/12/2008 ATKINSON DO, ARGELIA K 477.9 ALLERGIC RHINITIS 07/12/2008 ATKINSON DO, ARGELIA K 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 07/12/2008 ATKINSON DO, ARGELIA K 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 07/12/2008 ATKINSON DO, ARGELIA K 477.9 ALLERGIC RHINITIS 07/12/2008 ATKINSON DO, ARGELIA K 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 07/12/2008 ATKINSON TIN CANOA K 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 07/12/2008 477.9 ALLERGIC RHINITIS 07/12/2008 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 07/12/2008 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 07/12/2008 477.9 ALLERGIC RHINITIS 07/12/2008 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 07/12/2008 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 07/12/2008 477.9 ALLERGIC RHINITIS 07/12/2008 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 07/12/2008 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 07/12/2008 477.9 ALLERGIC RHINITIS 07/12/2008 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 07/12/2008 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 07/12/2008 477.9 ALLERGIC RHINITIS 07/12/2008 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 07/12/2008 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 07/12/2008 477.9 ALLERGIC RHINITIS 07/12/2008 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 07/12/2008 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 07/12/2008 477.9 ALLERGIC RHINITIS 07/12/2008 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 07/12/2008 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 07/12/2008 ALANA GOLD APRN S 477.9 ALLERGIC RHINITIS 07/12/2008 ASIF PEDIATRIC UROLOGIST, ALANA S 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 07/12/2008 ASIF PEDIATRIC UROLOGIST, ALANA S 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 07/12/2008 ATKINSON DO, ARGELIA K 477.9 ALLERGIC RHINITIS 07/12/2008 ATKINSON DO, ARGELIA K 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 07/12/2008 ATKINSON DO, ARGELIA K 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 07/12/2008 ATKINSON DO, ARGELIA K 477.9 ALLERGIC RHINITIS 07/12/2008 ATKINSON DO, ARGELIA K 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 07/12/2008 ATKINSON DO, ARGELIA K 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 07/12/2008 ATKINSON DO, ARGELIA K 477.9 ALLERGIC RHINITIS 07/12/2008 ATKINSON DO, ARGELIA K 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 07/12/2008 ATKINSON DO, ARGELIA K 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 07/12/2008 ATKINSON DO, ARGELIA K 477.9 ALLERGIC RHINITIS 07/12/2008 ATKINSON DO, ARGELIA K 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 07/12/2008 ATKINSON DO, ARGELIA K 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 07/12/2008 ATKINSON DO, ARGELIA K 477.9 ALLERGIC RHINITIS 07/12/2008 ATKINSON DO, ARGELIA K 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 07/12/2008 ATKINSON DO, ARGELIA K 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 07/12/2008 ATKINSON DO, ARGELIA K 477.9 ALLERGIC RHINITIS 07/12/2008 ATKINSON DO, ARGELIA K 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 07/12/2008 ATKINSON DO, ARGELIA K 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 07/12/2008 ATKINSON DO, ARGELIA K 477.9 ALLERGIC RHINITIS 07/12/2008 ATKINSON DO, ARGELIA K 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 07/12/2008 ATKINSON DO, ARGELIA K 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 07/12/2008 ATKINSON DO, ARGELIA K 477.9 ALLERGIC RHINITIS 07/12/2008 ATKINSON DO, ARGELIA K 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 07/12/2008 ATKINSON DO, ARGELIA K 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 07/12/2008 KONG GREWAL, BABAK Sheppard 477.9 ALLERGIC RHINITIS 07/12/2008 KONG MD, BABAK N 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 07/12/2008 BABAK TRIANA MD N 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 07/12/2008 BABAK TRIANA MD N 477.9 ALLERGIC RHINITIS 07/12/2008 BABAK TRIANA MD N 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 07/12/2008 BABKA TRIANA MD N 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 07/12/2008 BABAK TRIANA MD N 477.9 ALLERGIC RHINITIS 07/12/2008 BABAK TRIANA MD N 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 07/12/2008 BABAK TRIANA MD N 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 07/12/2008 BABAK TRIANA MD N 477.9 ALLERGIC RHINITIS 07/12/2008 BABAK TRIANA MD N 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 07/12/2008 BABAK TRIANA MD N 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 07/12/2008 BABAK TRIANA MD N 477.9 ALLERGIC RHINITIS 07/12/2008 BABAK TRIANA MD N 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 07/12/2008 BABAK TRIANA MD N 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 07/12/2008 MITALI GOLD APRNNDA S 477.9 ALLERGIC RHINITIS 07/12/2008 ASIF PEDIATRIC UROLOGISTMITALI SheppardNDA S 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 07/12/2008 ASIF POLANCO ALANA S 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 07/12/2008 ATKINSON DO, ARGELIA K 477.9 ALLERGIC RHINITIS 07/12/2008 ATKINSON DO, ARGELIA K 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 07/12/2008 ATKINSON DO, ARGELIA K 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 07/12/2008 ATKINSON DO, ARGELIA K 477.9 ALLERGIC RHINITIS 07/12/2008 ATKINSON DO, ARGELIA K 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 07/12/2008 ATKINSON DO, ARGELIA K 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 07/12/2008 ATKINSON DO, ARGELIA K 477.9 ALLERGIC RHINITIS 07/12/2008 ATKINSON DO, ARGELIA K 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 07/12/2008 ATKINSON DO, ARGELIA K 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 07/12/2008 KONG GREWAL, BABAK N 477.9 ALLERGIC RHINITIS 07/12/2008 KONG GREWAL, BABAK N 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 07/12/2008 BABAK TRIANA MD N 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 07/27/2008 ATKINSON DO ARGELIA K 616.10 VAGINITIS 07/27/2008 ATKINSON DO ARGELIA K 788.30 urinary loss of control 07/27/2008 ATKINSON DO, ARGELIA K 788.41 urinary frequency increased 07/27/2008 ATKINSON DO, ARGELIA K 788.63 feelings of urinary urgency 07/27/2008 ATKINSON DO, ARGELIA K 616.10 VAGINITIS 07/27/2008 ATKINSON DO, ARGELIA K 788.30 urinary loss of control 07/27/2008 ATKINSON DO, ARGELIA K 788.41 urinary frequency increased 07/27/2008 ATKINSON DO, ARGELIA K 788.63 feelings of urinary urgency 07/27/2008 616.10 VAGINITIS 07/27/2008 788.30 urinary loss of control 07/27/2008 788.41 urinary frequency increased 07/27/2008 788.63 feelings of urinary urgency 07/27/2008 ATKINSON DO, ARGELIA K 616.10 VAGINITIS 07/27/2008 ATKINSON DO, ARGELIA K 788.30 urinary loss of control 07/27/2008 ATKINSON DO, ARGELIA K 788.41 urinary frequency increased 07/27/2008 ATKINSON DO, ARGELIA K 788.63 feelings of urinary urgency 07/27/2008 ATKINSON DO ARGELIA K 616.10 VAGINITIS 07/27/2008 ATKINSON DO, ARGELIA K 788.30 urinary loss of control 07/27/2008 ATKINSON DO, ARGELIA K 788.41 urinary frequency increased 07/27/2008 ATKINSON DO, ARGELIA K 788.63 feelings of urinary urgency 07/27/2008 616.10 VAGINITIS 07/27/2008 788.30 urinary loss of control 07/27/2008 788.41 urinary frequency increased 07/27/2008 788.63 feelings of urinary urgency 07/27/2008 616.10 VAGINITIS 07/27/2008 788.30 urinary loss of control 07/27/2008 788.41 urinary frequency increased 07/27/2008 788.63 feelings of urinary urgency 07/27/2008 616.10 VAGINITIS 07/27/2008 788.30 urinary loss of control 07/27/2008 788.41 urinary frequency increased 07/27/2008 788.63 feelings of urinary urgency 07/27/2008 616.10 VAGINITIS 07/27/2008 788.30 urinary loss of control 07/27/2008 788.41 urinary frequency increased 07/27/2008 788.63 feelings of urinary urgency 07/27/2008 616.10 VAGINITIS 07/27/2008 788.30 urinary loss of control 07/27/2008 788.41 urinary frequency increased 07/27/2008 788.63 feelings of urinary urgency 07/27/2008 616.10 VAGINITIS 07/27/2008 788.30 urinary loss of control 07/27/2008 788.41 urinary frequency increased 07/27/2008 788.63 feelings of urinary urgency 07/27/2008 616.10 VAGINITIS 07/27/2008 788.30 urinary loss of control 07/27/2008 788.41 urinary frequency increased 07/27/2008 788.63 feelings of urinary urgency 07/27/2008 616.10 VAGINITIS 07/27/2008 788.30 urinary loss of control 07/27/2008 788.41 urinary frequency increased 07/27/2008 788.63 feelings of urinary urgency 07/27/2008 ALANA GOLD APRN S 616.10 VAGINITIS 07/27/2008 MITALI GOLD APRNNDA S 788.30 urinary loss of control 07/27/2008 MITALI GOLD APRNNDA S 788.41 urinary frequency increased 07/27/2008 MITALI GOLD APRNNDA S 788.63 feelings of urinary urgency 07/27/2008 TIN ATKINSON DOA K 616.10 VAGINITIS 07/27/2008 ARGELIA ATKINSON DO K 788.30 urinary loss of control 07/27/2008 TIN ATKINSON DOA K 788.41 urinary frequency increased 07/27/2008 ATKINSON TIN CANOA K 788.63 feelings of urinary urgency 07/27/2008 TIN ATKINSON DOA K 616.10 VAGINITIS 07/27/2008 ATKINSON DO, ARGELIA K 788.30 urinary loss of control 07/27/2008 ATKINSON DO, ARGELIA K 788.41 urinary frequency increased 07/27/2008 ATKINSON DO, ARGELIA K 788.63 feelings of urinary urgency 07/27/2008 ATKINSON DO, ARGELIA K 616.10 VAGINITIS 07/27/2008 ATKINSON DO, ARGELIA K 788.30 urinary loss of control 07/27/2008 ATKINSON DO, ARGELIA K 788.41 urinary frequency increased 07/27/2008 ATKINSON DO, ARGELIA K 788.63 feelings of urinary urgency 07/27/2008 ATKINSON DO, ARGELIA K 616.10 VAGINITIS 07/27/2008 ATKINSON DO, ARGELIA K 788.30 urinary loss of control 07/27/2008 ATKINSON DO, ARGELIA K 788.41 urinary frequency increased 07/27/2008 ATKINSON DO, ARGELIA K 788.63 feelings of urinary urgency 07/27/2008 ATKINSON DO, ARGELIA K 616.10 VAGINITIS 07/27/2008 ATKINSON DO, ARGELIA K 788.30 urinary loss of control 07/27/2008 ATKINSON DO, ARGELIA K 788.41 urinary frequency increased 07/27/2008 ATKINSON DO, ARGELIA K 788.63 feelings of urinary urgency 07/27/2008 ATKINSON DO, ARGELIA K 616.10 VAGINITIS 07/27/2008 ATKINSON DO, ARGELIA K 788.30 urinary loss of control 07/27/2008 ATKINSON DO, ARGELIA K 788.41 urinary frequency increased 07/27/2008 ATKINSON DO, ARGELIA K 788.63 feelings of urinary urgency 07/27/2008 ATKINSON DO, ARGELIA K 616.10 VAGINITIS 07/27/2008 ATKINSON DO, ARGELIA K 788.30 urinary loss of control 07/27/2008 ATKINSON DO, ARGELIA K 788.41 urinary frequency increased 07/27/2008 ATKINSON DO, ARGELIA K 788.63 feelings of urinary urgency 07/27/2008 ATKINSON DO, ARGELIA K 616.10 VAGINITIS 07/27/2008 ATKINSON DO, ARGELIA K 788.30 urinary loss of control 07/27/2008 ATKINOSN DO, ARGELIA K 788.41 urinary frequency increased 07/27/2008 ATKINSON DO, ARGELIA K 788.63 feelings of urinary urgency 07/27/2008 BABAK TRIANA MD N 616.10 VAGINITIS 07/27/2008 BABAK TRIANA MD N 788.30 urinary loss of control 07/27/2008 BABAK TRIANA MD N 788.41 urinary frequency increased 07/27/2008 BABAK TRIANA MD N 788.63 feelings of urinary urgency 07/27/2008 BABAK TRIANA MD N 616.10 VAGINITIS 07/27/2008 BABAK TRIANA MD N 788.30 urinary loss of control 07/27/2008 BABAK TRIANA MD N 788.41 urinary frequency increased 07/27/2008 BABAK TRIANA MD N 788.63 feelings of urinary urgency 07/27/2008 BABAK TRIANA MD N 616.10 VAGINITIS 07/27/2008 BABAK TRIANA MD N 788.30 urinary loss of control 07/27/2008 BABAK TRIANA MD N 788.41 urinary frequency increased 07/27/2008 BABAK TRIANA MD N 788.63 feelings of urinary urgency 07/27/2008 BABAK TRIANA MD N 616.10 VAGINITIS 07/27/2008 BABAK TRIANA MD N 788.30 urinary loss of control 07/27/2008 BABAK TRIANA MD N 788.41 urinary frequency increased 07/27/2008 BABAK TRIANA MD N 788.63 feelings of urinary urgency 07/27/2008 BABAK TRIANA MD N 616.10 VAGINITIS 07/27/2008 BABAK TRIANA MD N 788.30 urinary loss of control 07/27/2008 BABAK TRIANA MD N 788.41 urinary frequency increased 07/27/2008 BABAK TRIANA MD N 788.63 feelings of urinary urgency 07/27/2008 TYRELL GOLD APRNA S 616.10 VAGINITIS 07/27/2008 MITALI GOLD APRNNDA S 788.30 urinary loss of control 07/27/2008 MITALI GOLD APRNNDA S 788.41 urinary frequency increased 07/27/2008 ASIF POLANCO ALANA S 788.63 feelings of urinary urgency 07/27/2008 ATKINSON DO, ARGELIA K 616.10 VAGINITIS 07/27/2008 ATKINSON DO, ARGELIA K 788.30 urinary loss of control 07/27/2008 ATKINSON DO, ARGELIA K 788.41 urinary frequency increased 07/27/2008 ATKINSON DO, ARGELIA K 788.63 feelings of urinary urgency 07/27/2008 ATKINSON DO, ARGELIA K 616.10 VAGINITIS 07/27/2008 ATKINSON DO, ARGELIA K 788.30 urinary loss of control 07/27/2008 ATKINSON DO, ARGELIA K 788.41 urinary frequency increased 07/27/2008 ATKINSON DO, ARGELIA K 788.63 feelings of urinary urgency 07/27/2008 ATKINSON DO, ARGELIA K 616.10 VAGINITIS 07/27/2008 ATKINSON DO, ARGELIA K 788.30 urinary loss of control 07/27/2008 ATKINSON DO, ARGELIA K 788.41 urinary frequency increased 07/27/2008 ATKINSON DO, ARGELIA K 788.63 feelings of urinary urgency 07/27/2008 BABAK TRIANA MD N 616.10 VAGINITIS 07/27/2008 BABAK TRIANA MD N 788.30 urinary loss of control 07/27/2008 BABAK TRIANA MD N 788.41 urinary frequency increased 07/27/2008 BABAK TRIANA MD N 788.63 feelings of urinary urgency 08/10/2008 ATKINSON DO, ARGELIA K 719.46 joint pain, localized in the knee 08/10/2008 ATKINSON DO, ARGELIA K 719.46 joint pain, localized in the knee 08/10/2008 719.46 joint pain, localized in the knee 08/10/2008 ATKINSON DO, ARGELIA K 719.46 joint pain, localized in the knee 08/10/2008 ATKINSON DO, ARGELIA K 719.46 joint pain, localized in the knee 08/10/2008 719.46 joint pain, localized in the knee 08/10/2008 719.46 joint pain, localized in the knee 08/10/2008 719.46 joint pain, localized in the knee 08/10/2008 719.46 joint pain, localized in the knee 08/10/2008 719.46 joint pain, localized in the knee 08/10/2008 719.46 joint pain, localized in the knee 08/10/2008 719.46 joint pain, localized in the knee 08/10/2008 719.46 joint pain, localized in the knee 08/10/2008 ALANA GOLD APRN 719.46 joint pain, localized in the knee 08/10/2008 ATKINSON DO, ARGELIA K 719.46 joint pain, localized in the knee 08/10/2008 ATKINSON DO, ARGELIA K 719.46 joint pain, localized in the knee 08/10/2008 ATKINSON DO, ARGELIA K 719.46 joint pain, localized in the knee 08/10/2008 ATKINSON DO, ARGELIA K 719.46 joint pain, localized in the knee 08/10/2008 ATKINSON DO, ARGELIA K 719.46 joint pain, localized in the knee 08/10/2008 ATKINSON DO, ARGELIA K 719.46 joint pain, localized in the knee 08/10/2008 ATKINSON DO, ARGELIA K 719.46 joint pain, localized in the knee 08/10/2008 ATKINSON DO, ARGELIA K 719.46 joint pain, localized in the knee 08/10/2008 BABAK TRIANA MD N 719.46 joint pain, localized in the knee 08/10/2008 BABAK TRIANA MD N 719.46 joint pain, localized in the knee 08/10/2008 BABAK TRIANA MD N 719.46 joint pain, localized in the knee 08/10/2008 BABAK TRIANA MD N 719.46 joint pain, localized in the knee 08/10/2008 BABAK TRIANA MD 719.46 joint pain, localized in the knee 08/10/2008 ALANA GOLD APRN 719.46 joint pain, localized in the knee 08/10/2008 ATKINSON DO, ARGELIA K 719.46 joint pain, localized in the knee 08/10/2008 ATKINSON DO, ARGELIA K 719.46 joint pain, localized in the knee 08/10/2008 ATKINSON DO, ARGELIA K 719.46 joint pain, localized in the knee 08/10/2008 BABAK TRIANA MD N 719.46 joint pain, localized in the knee 08/17/2008 ATKINSON DO, ARGELIA K 296.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 08/17/2008 ATKINSON DO, ARGELIA K 296.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 08/17/2008 296.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 08/17/2008 ATKINSON DO, ARGELIA K 296.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 08/17/2008 ATKINSON DO, ARGELIA K 296.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 08/17/2008 296.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 08/17/2008 296.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 08/17/2008 296.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 08/17/2008 296.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 08/17/2008 296.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 08/17/2008 296.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 08/17/2008 296.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 08/17/2008 BABAK TRIANA MD N 296.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 08/17/2008 BABAK TRIANA MD N 296.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 08/17/2008 BABAK TRIANA MD N 296.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 08/17/2008 BABAK TRIANA MD N 296.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 08/17/2008 BABAK TRIANA MD N 296.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 08/17/2008 ALANA GOLD APRN S 296.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 08/17/2008 ATKINSON DO, ARGELIA K 296.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 08/17/2008 ATKINSON DO, ARGELIA K 296.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 08/17/2008 ATKINSON DO, ARGELIA K 296.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 08/17/2008 BABAK TRIANA MD N 296.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 12/21/2008 ATKINSON DO ARGELIA K 782.3 Edema 12/21/2008 ATKINSON DO, ARGELIA K 782.3 Edema 12/21/2008 782.3 Edema 12/21/2008 ATKINSON DO, ARGELIA K 782.3 Edema 12/21/2008 ATKINSON DO, ARGELIA K 782.3 Edema 12/21/2008 782.3 Edema 12/21/2008 782.3 Edema 12/21/2008 782.3 Edema 12/21/2008 782.3 Edema 12/21/2008 782.3 Edema 12/21/2008 782.3 Edema 12/21/2008 782.3 Edema 12/21/2008 782.3 Edema 12/21/2008 TYRELL GOLD APRNA S 782.3 Edema 12/21/2008 ATKINSON DO, ARGELIA K 782.3 Edema 12/21/2008 ATKINSON DO, ARGELIA K 782.3 Edema 12/21/2008 ATKINSON DO, ARGELIA K 782.3 Edema 12/21/2008 ATKINSON DO, ARGELIA K 782.3 Edema 12/21/2008 ATKINSON DO, ARGELIA K 782.3 Edema 12/21/2008 ATKINSON DO, ARGELIA K 782.3 Edema 12/21/2008 ATKINSON DO, ARGELIA K 782.3 Edema 12/21/2008 ATKINSON DO, ARGELIA K 782.3 Edema 12/21/2008 BABAK TRIANA MD N 782.3 Edema 12/21/2008 KONG GREWAL, BABAK N 782.3 Edema 12/21/2008 BABAK TRIANA MD N 782.3 Edema 12/21/2008 BABAK TRIANA MD N 782.3 Edema 12/21/2008 BABAK TRIANA MD N 782.3 Edema 12/21/2008 ALANA GOLD APRN S 782.3 Edema 12/21/2008 ATKINSON DO, ARGELIA K 782.3 Edema 12/21/2008 ATKINSON DO, ARGELIA K 782.3 Edema 12/21/2008 ATKINSON DO, ARGELIA K 782.3 Edema 12/21/2008 BABAK TRIANA MD N 782.3 Edema 03/28/2009 ATKINSON DO, ARGELIA K 625.8 vulvar lump or mass 03/28/2009 ATKINSON DO, ARGELIA K 625.8 vulvar lump or mass 03/28/2009 625.8 vulvar lump or mass 03/28/2009 ATKINSON DO, ARGELIA K 625.8 vulvar lump or mass 03/28/2009 ATKINSON DO, ARGELIA K 625.8 vulvar lump or mass 03/28/2009 625.8 vulvar lump or mass 03/28/2009 625.8 vulvar lump or mass 03/28/2009 625.8 vulvar lump or mass 03/28/2009 625.8 vulvar lump or mass 03/28/2009 625.8 vulvar lump or mass 03/28/2009 625.8 vulvar lump or mass 03/28/2009 625.8 vulvar lump or mass 03/28/2009 625.8 vulvar lump or mass 03/28/2009 ALANA GOLD APRN S 625.8 vulvar lump or mass 03/28/2009 ATKINSON DO, ARGELIA K 625.8 vulvar lump or mass 03/28/2009 ATKINSON DO, ARGELIA K 625.8 vulvar lump or mass 03/28/2009 ATKINSON DO, ARGELIA K 625.8 vulvar lump or mass 03/28/2009 ATKINSON DO, ARGELIA K 625.8 vulvar lump or mass 03/28/2009 ATKINSON DO, ARGELIA K 625.8 vulvar lump or mass 03/28/2009 ATKINSON DO, ARGELIA K 625.8 vulvar lump or mass 03/28/2009 ATKINSON DO, ARGELIA K 625.8 vulvar lump or mass 03/28/2009 ATKINSON DO, ARGELIA K 625.8 vulvar lump or mass 03/28/2009 BABAK TRIANA MD 625.8 vulvar lump or mass 03/28/2009 BABAK TRIANA MD 625.8 vulvar lump or mass 03/28/2009 BABAK TRIANA MD 625.8 vulvar lump or mass 03/28/2009 BABAK TRIANA MD 625.8 vulvar lump or mass 03/28/2009 BABAK TRIANA MD 625.8 vulvar lump or mass 03/28/2009 ALANA GOLD APRN S 625.8 vulvar lump or mass 03/28/2009 ATKINSON DO, ARGELIA K 625.8 vulvar lump or mass 03/28/2009 ATKINSON DO ARGELIA K 625.8 vulvar lump or mass 03/28/2009 ATKINSON DO ARGELIA K 625.8 vulvar lump or mass 03/28/2009 BABAK TRIANA MD 625.8 vulvar lump or mass 03/30/2009 Ot V43.64 03/30/2009 Ot V57.1 03/30/2009 Ot V58.43 04/04/2009 ARGELIA ATKINSON DO K 300.00 ANXIETY UNSPEC 04/04/2009 ATKINSON DOTINA K 789.00 Abdominal Pain Unspecified Site 04/04/2009 ATKINSON DO, ARGELIA K 300.00 ANXIETY UNSPEC 04/04/2009 ATKINSON DOTINA K 789.00 Abdominal Pain Unspecified Site 04/04/2009 300.00 ANXIETY UNSPEC 04/04/2009 789.00 Abdominal Pain Unspecified Site 04/04/2009 ATKINSON DOTINA K 300.00 ANXIETY UNSPEC 04/04/2009 ATKINSON ARGELIA CANO K 789.00 Abdominal Pain Unspecified Site 04/04/2009 TIN ATKINSON DOA K 300.00 ANXIETY UNSPEC 04/04/2009 ATKINSON DOTINA K 789.00 Abdominal Pain Unspecified Site 04/04/2009 300.00 ANXIETY UNSPEC 04/04/2009 789.00 Abdominal Pain Unspecified Site 04/04/2009 300.00 ANXIETY UNSPEC 04/04/2009 789.00 Abdominal Pain Unspecified Site 04/04/2009 300.00 ANXIETY UNSPEC 04/04/2009 789.00 Abdominal Pain Unspecified Site 04/04/2009 300.00 ANXIETY UNSPEC 04/04/2009 789.00 Abdominal Pain Unspecified Site 04/04/2009 300.00 ANXIETY UNSPEC 04/04/2009 789.00 Abdominal Pain Unspecified Site 04/04/2009 300.00 ANXIETY UNSPEC 04/04/2009 789.00 Abdominal Pain Unspecified Site 04/04/2009 300.00 ANXIETY UNSPEC 04/04/2009 789.00 Abdominal Pain Unspecified Site 04/04/2009 300.00 ANXIETY UNSPEC 04/04/2009 789.00 Abdominal Pain Unspecified Site 04/04/2009 ALANA GOLD APRN 300.00 ANXIETY UNSPEC 04/04/2009 ALANA GOLD APRN 789.00 Abdominal Pain Unspecified Site 04/04/2009 ATKINSON DO, ARGELIA K 300.00 ANXIETY UNSPEC 04/04/2009 ATKINSON DO, ARGELIA K 789.00 Abdominal Pain Unspecified Site 04/04/2009 ATKINSON DO, ARGELIA K 300.00 ANXIETY UNSPEC 04/04/2009 ATKINSON DO, ARGELIA K 789.00 Abdominal Pain Unspecified Site 04/04/2009 ATKINSON DO, ARGELIA K 300.00 ANXIETY UNSPEC 04/04/2009 ATKINSON DO, ARGELIA K 789.00 Abdominal Pain Unspecified Site 04/04/2009 ATKINSON DO, ARGELIA K 300.00 ANXIETY UNSPEC 04/04/2009 ATKINSON DO, ARGELIA K 789.00 Abdominal Pain Unspecified Site 04/04/2009 ATKINSON DO, ARGELIA K 300.00 ANXIETY UNSPEC 04/04/2009 ATKINSON DO, ARGELIA K 789.00 Abdominal Pain Unspecified Site 04/04/2009 ATKINSON DO, ARGELIA K 300.00 ANXIETY UNSPEC 04/04/2009 ATKINSON DO, ARGELIA K 789.00 Abdominal Pain Unspecified Site 04/04/2009 ATKINSON DO, ARGELIA K 300.00 ANXIETY UNSPEC 04/04/2009 ATKINSON DO, ARGELIA K 789.00 Abdominal Pain Unspecified Site 04/04/2009 ATKINSON DO, ARGELIA K 300.00 ANXIETY UNSPEC 04/04/2009 ATKINSON DO, ARGELIA K 789.00 Abdominal Pain Unspecified Site 04/04/2009 BABAK TRIANA MD N 300.00 ANXIETY UNSPEC 04/04/2009 BABAK TRIANA MD N 789.00 Abdominal Pain Unspecified Site 04/04/2009 BABAK TRIANA MD N 300.00 ANXIETY UNSPEC 04/04/2009 BABAK TRIANA MD N 789.00 Abdominal Pain Unspecified Site 04/04/2009 BABAK TRIANA MD N 300.00 ANXIETY UNSPEC 04/04/2009 BABAK TRIANA MD N 789.00 Abdominal Pain Unspecified Site 04/04/2009 BABAK TRIANA MD N 300.00 ANXIETY UNSPEC 04/04/2009 BABAK TRIANA MD N 789.00 Abdominal Pain Unspecified Site 04/04/2009 BABAK TRIANA MD N 300.00 ANXIETY UNSPEC 04/04/2009 BABAK TRIANA MD 789.00 Abdominal Pain Unspecified Site 04/04/2009 ASIF PEDIATRIC UROLOGIST, ALANA S 300.00 ANXIETY UNSPEC 04/04/2009 ASIF TREVIÑON, ALANA S 789.00 Abdominal Pain Unspecified Site 04/04/2009 ATKINSON DO, ARGELIA K 300.00 ANXIETY UNSPEC 04/04/2009 ATKINSON DO, ARGELIA K 789.00 Abdominal Pain Unspecified Site 04/04/2009 ATKINSON DO, ARGELIA K 300.00 ANXIETY UNSPEC 04/04/2009 ATKINSON DO, ARGELIA K 789.00 Abdominal Pain Unspecified Site 04/04/2009 ATKINSON DO, ARGELIA K 300.00 ANXIETY UNSPEC 04/04/2009 ATKINSON DO, ARGELIA K 789.00 Abdominal Pain Unspecified Site 04/04/2009 KONG GREWAL, BABAK N 300.00 ANXIETY UNSPEC 04/04/2009 KONG GREWAL, BABAK N 789.00 Abdominal Pain Unspecified Site 04/25/2009 ATKINSON DO, ARGELIA K V58.69 taking high-risk medication 04/25/2009 ATKINSON DO, ARGELIA K V70.0 Normal Routine History And Physical Senior Citizen (65-80) 04/25/2009 ATKINSON DO, ARGELIA K V58.69 taking high-risk medication 04/25/2009 ATKINSON DO, ARGELIA K V70.0 Normal Routine History And Physical Senior Citizen (65-80) 04/25/2009 V58.69 taking high-risk medication 04/25/2009 V70.0 Normal Routine History And Physical Senior Citizen (65-80) 04/25/2009 ATKINSON DO, ARGELIA K V58.69 taking high-risk medication 04/25/2009 ATKINSON DO, ARGELIA K V70.0 Normal Routine History And Physical Senior Citizen (65-80) 04/25/2009 ATKINSON DO, ARGELIA K V58.69 taking high-risk medication 04/25/2009 ATKINSON DO, ARGELIA K V70.0 Normal Routine History And Physical Senior Citizen (65-80) 04/25/2009 V58.69 taking high-risk medication 04/25/2009 V70.0 Normal Routine History And Physical Senior Citizen (65-80) 04/25/2009 V58.69 taking high-risk medication 04/25/2009 V70.0 Normal Routine History And Physical Senior Citizen (65-80) 04/25/2009 V58.69 taking high-risk medication 04/25/2009 V70.0 Normal Routine History And Physical Senior Citizen (65-80) 04/25/2009 V58.69 taking high-risk medication 04/25/2009 V70.0 Normal Routine History And Physical Senior Citizen (65-80) 04/25/2009 V58.69 taking high-risk medication 04/25/2009 V70.0 Normal Routine History And Physical Senior Citizen (65-80) 04/25/2009 V58.69 taking high-risk medication 04/25/2009 V70.0 Normal Routine History And Physical Senior Citizen (65-80) 04/25/2009 V58.69 taking high-risk medication 04/25/2009 V70.0 Normal Routine History And Physical Senior Citizen (65-80) 04/25/2009 V58.69 taking high-risk medication 04/25/2009 V70.0 Normal Routine History And Physical Senior Citizen (65-80) 04/25/2009 ALANA GOLD APRN S V58.69 taking high-risk medication 04/25/2009 ALANA GOLD APRN S V70.0 Normal Routine History And Physical Senior Citizen (65-80) 04/25/2009 ATKINSON DO, ARGELIA K V58.69 taking high-risk medication 04/25/2009 ATKINSON DO, ARGELIA K V70.0 Normal Routine History And Physical Senior Citizen (65-80) 04/25/2009 ATKINSON DO, ARGELIA K V58.69 taking high-risk medication 04/25/2009 ATKINSON DO, ARGELIA K V70.0 Normal Routine History And Physical Senior Citizen (65-80) 04/25/2009 ATKINSON DO, ARGELIA K V58.69 taking high-risk medication 04/25/2009 ATKINSON DO, ARGELIA K V70.0 Normal Routine History And Physical Senior Citizen (65-80) 04/25/2009 ATKINSON DO, ARGELIA K V58.69 taking high-risk medication 04/25/2009 ATKINSON DO, ARGELIA K V70.0 Normal Routine History And Physical Senior Citizen (65-80) 04/25/2009 ATKINSON DO, ARGELIA K V58.69 taking high-risk medication 04/25/2009 ATKINSON DO, ARGELIA K V70.0 Normal Routine History And Physical Senior Citizen (65-80) 04/25/2009 ATKINSON DO, ARGELIA K V58.69 taking high-risk medication 04/25/2009 ATKINSON DO, ARGELIA K V70.0 Normal Routine History And Physical Senior Citizen (65-80) 04/25/2009 ATKINSON DO, ARGELIA K V58.69 taking high-risk medication 04/25/2009 ATKINSON DO, ARGELIA K V70.0 Normal Routine History And Physical Senior Citizen (65-80) 04/25/2009 ATKINSON DO ARGELIA K V58.69 taking high-risk medication 04/25/2009 ATKINSON DO, ARGELIA K V70.0 Normal Routine History And Physical Senior Citizen (65-80) 04/25/2009 BABAK TRIANA MD V58.69 taking high-risk medication 04/25/2009 BABAK TRIANA MD V70.0 Normal Routine History And Physical Senior Citizen (65-80) 04/25/2009 BABAK TRIANA MD V58.69 taking high-risk medication 04/25/2009 BABAK TRIANA MD V70.0 Normal Routine History And Physical Senior Citizen (65-80) 04/25/2009 BABAK TRIANA MD V58.69 taking high-risk medication 04/25/2009 BABAK TRIANA MD V70.0 Normal Routine History And Physical Senior Citizen (65-80) 04/25/2009 BABAK TRIANA MD V58.69 taking high-risk medication 04/25/2009 BABAK TRIANA MD V70.0 Normal Routine History And Physical Senior Citizen (65-80) 04/25/2009 BABAK TRIANA MD V58.69 taking high-risk medication 04/25/2009 BABAK TRIANA MD N V70.0 Normal Routine History And Physical Senior Citizen (65-80) 04/25/2009 ALANA GOLD APRN S V58.69 taking high-risk medication 04/25/2009 ALANA GOLD APRN S V70.0 Normal Routine History And Physical Senior Citizen (65-80) 04/25/2009 [place] DO ARGELIA K V58.69 taking high-risk medication 04/25/2009 ATKINSON DO ARGELIA K V70.0 Normal Routine History And Physical Senior Citizen (65-80) 04/25/2009 ATKINSON DO, ARGELIA K V58.69 taking high-risk medication 04/25/2009 ATKINSON DO, ARGELIA K V70.0 Normal Routine History And Physical Senior Citizen (65-80) 04/25/2009 ATKINSON DO, ARGELIA K V58.69 taking high-risk medication 04/25/2009 ATKINSON DO, ARGELIA K V70.0 Normal Routine History And Physical Senior Citizen (65-80) 04/25/2009 BABAK TRIANA MD V58.69 taking high-risk medication 04/25/2009 BABAK TRIANA MD V70.0 Normal Routine History And Physical Senior Citizen (65-80) 05/10/2009 ATKINSON DO, ARGELIA K 564.1 IRRITABLE BOWEL SYNDROME 05/10/2009 ATKINSON DO, ARGELIA K 788.1 Pain During Urination (dysuria) 05/10/2009 ATKINSON DO, ARGELIA K 789.00 Abdominal Pain 05/10/2009 ATKINSON DO, ARGELIA K 564.1 IRRITABLE BOWEL SYNDROME 05/10/2009 ATKINSON DO, ARGELIA K 788.1 Pain During Urination (dysuria) 05/10/2009 ATKINSON DO, ARGELIA K 789.00 Abdominal Pain 05/10/2009 564.1 IRRITABLE BOWEL SYNDROME 05/10/2009 788.1 Pain During Urination (dysuria) 05/10/2009 789.00 Abdominal Pain 05/10/2009 ATKINSON DO, ARGELIA K 564.1 IRRITABLE BOWEL SYNDROME 05/10/2009 ATKINSON DO, ARGELIA K 788.1 Pain During Urination (dysuria) 05/10/2009 ATKINSON DO, ARGELIA K 789.00 Abdominal Pain 05/10/2009 ATKINSON DO, ARGELIA K 564.1 IRRITABLE BOWEL SYNDROME 05/10/2009 ATKINSON DO, ARGELIA K 788.1 Pain During Urination (dysuria) 05/10/2009 ATKINSON DO, ARGELIA K 789.00 Abdominal Pain 05/10/2009 564.1 IRRITABLE BOWEL SYNDROME 05/10/2009 788.1 Pain During Urination (dysuria) 05/10/2009 789.00 Abdominal Pain 05/10/2009 564.1 IRRITABLE BOWEL SYNDROME 05/10/2009 788.1 Pain During Urination (dysuria) 05/10/2009 789.00 Abdominal Pain 05/10/2009 564.1 IRRITABLE BOWEL SYNDROME 05/10/2009 788.1 Pain During Urination (dysuria) 05/10/2009 789.00 Abdominal Pain 05/10/2009 564.1 IRRITABLE BOWEL SYNDROME 05/10/2009 788.1 Pain During Urination (dysuria) 05/10/2009 789.00 Abdominal Pain 05/10/2009 564.1 IRRITABLE BOWEL SYNDROME 05/10/2009 788.1 Pain During Urination (dysuria) 05/10/2009 789.00 Abdominal Pain 05/10/2009 564.1 IRRITABLE BOWEL SYNDROME 05/10/2009 788.1 Pain During Urination (dysuria) 05/10/2009 789.00 Abdominal Pain 05/10/2009 564.1 IRRITABLE BOWEL SYNDROME 05/10/2009 788.1 Pain During Urination (dysuria) 05/10/2009 789.00 Abdominal Pain 05/10/2009 564.1 IRRITABLE BOWEL SYNDROME 05/10/2009 788.1 Pain During Urination (dysuria) 05/10/2009 789.00 Abdominal Pain 05/10/2009 TYRELL GOLD APRNA S 564.1 IRRITABLE BOWEL SYNDROME 05/10/2009 TYRELL GOLD APRNA S 788.1 Pain During Urination (dysuria) 05/10/2009 MITALI GOLD APRNNDA S 789.00 Abdominal Pain 05/10/2009 ATKINSON DO, ARGELIA K 564.1 IRRITABLE BOWEL SYNDROME 05/10/2009 ATKINSON DO, ARGELIA K 788.1 Pain During Urination (dysuria) 05/10/2009 ATKINSON DO, ARGELIA K 789.00 Abdominal Pain 05/10/2009 ATKINSON DO, ARGELIA K 564.1 IRRITABLE BOWEL SYNDROME 05/10/2009 ATKINSON DO, ARGELIA K 788.1 Pain During Urination (dysuria) 05/10/2009 ATKINSON DO, ARGELIA K 789.00 Abdominal Pain 05/10/2009 ATKINSON DO, ARGELIA K 564.1 IRRITABLE BOWEL SYNDROME 05/10/2009 ATKINSON DO, ARGELIA K 788.1 Pain During Urination (dysuria) 05/10/2009 ATKINSON DO, ARGELIA K 789.00 Abdominal Pain 05/10/2009 ATKINSON DO, ARGELIA K 564.1 IRRITABLE BOWEL SYNDROME 05/10/2009 ATKINSON DO, ARGELIA K 788.1 Pain During Urination (dysuria) 05/10/2009 ATKINSON DO, ARGELIA K 789.00 Abdominal Pain 05/10/2009 ATKINSON DO, ARGELIA K 564.1 IRRITABLE BOWEL SYNDROME 05/10/2009 ATKINSON DO, ARGELIA K 788.1 Pain During Urination (dysuria) 05/10/2009 ATKINSON DO, ARGELIA K 789.00 Abdominal Pain 05/10/2009 ATKINSON DO, ARGELIA K 564.1 IRRITABLE BOWEL SYNDROME 05/10/2009 ATKINSON DO, ARGELIA K 788.1 Pain During Urination (dysuria) 05/10/2009 ATKINSON DO, ARGELIA K 789.00 Abdominal Pain 05/10/2009 ATKINSON DO, ARGELIA K 564.1 IRRITABLE BOWEL SYNDROME 05/10/2009 ATKINSON DO, ARGELIA K 788.1 Pain During Urination (dysuria) 05/10/2009 ATKINSON DO, ARGELIA K 789.00 Abdominal Pain 05/10/2009 ATKINSON DO, ARGELIA K 564.1 IRRITABLE BOWEL SYNDROME 05/10/2009 ATKINSON DO, ARGELIA K 788.1 Pain During Urination (dysuria) 05/10/2009 ATKINSON DO, ARGELIA K 789.00 Abdominal Pain 05/10/2009 BABAK TRIANA MD N 564.1 IRRITABLE BOWEL SYNDROME 05/10/2009 BABAK TRIANA MD N 788.1 Pain During Urination (dysuria) 05/10/2009 BABAK TRIANA MD N 789.00 Abdominal Pain 05/10/2009 BABAK TRIANA MD N 564.1 IRRITABLE BOWEL SYNDROME 05/10/2009 BABAK TRIANA MD N 788.1 Pain During Urination (dysuria) 05/10/2009 BABAK TRIANA MD N 789.00 Abdominal Pain 05/10/2009 BABAK TRIANA MD N 564.1 IRRITABLE BOWEL SYNDROME 05/10/2009 BABAK TRIANA MD N 788.1 Pain During Urination (dysuria) 05/10/2009 BABAK TRIANA MD N 789.00 Abdominal Pain 05/10/2009 BABAK TRIANA MD 564.1 IRRITABLE BOWEL SYNDROME 05/10/2009 BABAK TRIANA MD N 788.1 Pain During Urination (dysuria) 05/10/2009 BABAK TRIANA MD N 789.00 Abdominal Pain 05/10/2009 BABAK TRIANA MD 564.1 IRRITABLE BOWEL SYNDROME 05/10/2009 BABAK TRIANA MD N 788.1 Pain During Urination (dysuria) 05/10/2009 BABAK TRIANA MD N 789.00 Abdominal Pain 05/10/2009 ASIF PEDIATRIC UROLOGIST, ALANA S 564.1 IRRITABLE BOWEL SYNDROME 05/10/2009 ASIF PEDIATRIC UROLOGIST, ALANA S 788.1 Pain During Urination (dysuria) 05/10/2009 ASIF POLANCO ALANA S 789.00 Abdominal Pain 05/10/2009 ATKINSON DO, ARGELIA K 564.1 IRRITABLE BOWEL SYNDROME 05/10/2009 ATKINSON DO, ARGELIA K 788.1 Pain During Urination (dysuria) 05/10/2009 ATKINSON DO, ARGELIA K 789.00 Abdominal Pain 05/10/2009 ATKINSON DO, ARGELIA K 564.1 IRRITABLE BOWEL SYNDROME 05/10/2009 ATKINSON DO, ARGELIA K 788.1 Pain During Urination (dysuria) 05/10/2009 ATKINSON DO, ARGELIA K 789.00 Abdominal Pain 05/10/2009 ATKINSON DO, ARGELIA K 564.1 IRRITABLE BOWEL SYNDROME 05/10/2009 ATKINSON DO, ARGELIA K 788.1 Pain During Urination (dysuria) 05/10/2009 ATKINSON DO, ARGELIA K 789.00 Abdominal Pain 05/10/2009 BABAK TRIANA MD N 564.1 IRRITABLE BOWEL SYNDROME 05/10/2009 BABAK TRIANA MD N 788.1 Pain During Urination (dysuria) 05/10/2009 BABAK TRIANA MD N 789.00 Abdominal Pain 05/13/2009 ATKINSON DO, ARGEILA K 787.01 Nausea With Vomiting 05/13/2009 ATKINSON DO, ARGELIA K 787.01 Nausea With Vomiting 05/13/2009 787.01 Nausea With Vomiting 05/13/2009 ATKINSON DO ARGELIA K 787.01 Nausea With Vomiting 05/13/2009 ATKINSON DO, ARGELIA K 787.01 Nausea With Vomiting 05/13/2009 787.01 Nausea With Vomiting 05/13/2009 787.01 Nausea With Vomiting 05/13/2009 787.01 Nausea With Vomiting 05/13/2009 787.01 Nausea With Vomiting 05/13/2009 787.01 Nausea With Vomiting 05/13/2009 787.01 Nausea With Vomiting 05/13/2009 787.01 Nausea With Vomiting 05/13/2009 787.01 Nausea With Vomiting 05/13/2009 ALANA GOLD APRN S 787.01 Nausea With Vomiting 05/13/2009 ATKINSON DO, ARGELIA K 787.01 Nausea With Vomiting 05/13/2009 ATKINSON DO, ARGELIA K 787.01 Nausea With Vomiting 05/13/2009 ATKINSON DO, ARGELIA K 787.01 Nausea With Vomiting 05/13/2009 ATKINSON DO, ARGELIA K 787.01 Nausea With Vomiting 05/13/2009 ATKINSON DO, ARGELIA K 787.01 Nausea With Vomiting 05/13/2009 ATKINSON DO, ARGELIA K 787.01 Nausea With Vomiting 05/13/2009 ATKINSON DO, ARGELIA K 787.01 Nausea With Vomiting 05/13/2009 ATKINSON DO, ARGELIA K 787.01 Nausea With Vomiting 05/13/2009 BABAK TRIANA MD 787.01 Nausea With Vomiting 05/13/2009 BABAK TRIANA MD N 787.01 Nausea With Vomiting 05/13/2009 BABAK TRIANA MD 787.01 Nausea With Vomiting 05/13/2009 BABAK TRIANA MD 787.01 Nausea With Vomiting 05/13/2009 BABAK TRIANA MD N 787.01 Nausea With Vomiting 05/13/2009 ALANA GOLD APRN 787.01 Nausea With Vomiting 05/13/2009 ATKINSON DO, ARGELIA K 787.01 Nausea With Vomiting 05/13/2009 ATKINSON DO, ARGELIA K 787.01 Nausea With Vomiting 05/13/2009 ATKINSON DO, ARGELIA K 787.01 Nausea With Vomiting 05/13/2009 BABAK TRIANA MD 787.01 Nausea With Vomiting 07/02/2009 Ot 462 07/02/2009 Ot 715.96 07/09/2009 Ot 276.1 07/09/2009 Ot 599.0 07/09/2009 Ot 706.2 07/09/2009 Ot 716.96 07/09/2009 Ot 721.90 07/09/2009 Ot 788.1 07/09/2009 Ot V58.69 07/14/2009 Ot 625.8 07/16/2009 Ot 276.1 07/16/2009 Ot 300.00 07/16/2009 Ot 719.46 07/16/2009 Ot 789.09 07/16/2009 Ot V58.69 07/18/2009 ATKINSON DO, ARGELIA K 294.9 OR COG DIS NOS 07/18/2009 ATKINSON DO ARGELIA K 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 07/18/2009 ATKINSON DO ARGELIA K 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 07/18/2009 ATKINSON DO ARGELIA K 294.9 OR COG DIS NOS 07/18/2009 ATKINSON DO ARGELIA K 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 07/18/2009 CHINA CANO ARGELIA K 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 07/18/2009 294.9 OR COG DIS NOS 07/18/2009 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 07/18/2009 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 07/18/2009 ATKINSON DO ARGELIA K 294.9 OR COG DIS NOS 07/18/2009 ATKINSON DO ARGELIA K 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 07/18/2009 ATKINSON DO ARGELIA K 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 07/18/2009 ATKINSON DO ARGELIA K 294.9 OR COG DIS NOS 07/18/2009 ATKINSON DO ARGELIA K 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 07/18/2009 CHINA CANO ARGELIA K 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 07/18/2009 294.9 OR COG DIS NOS 07/18/2009 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 07/18/2009 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 07/18/2009 294.9 OR COG DIS NOS 07/18/2009 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 07/18/2009 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 07/18/2009 294.9 OR COG DIS NOS 07/18/2009 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 07/18/2009 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 07/18/2009 294.9 OR COG DIS NOS 07/18/2009 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 07/18/2009 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 07/18/2009 294.9 OR COG DIS NOS 07/18/2009 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 07/18/2009 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 07/18/2009 294.9 OR COG DIS NOS 07/18/2009 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 07/18/2009 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 07/18/2009 294.9 OR COG DIS NOS 07/18/2009 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 07/18/2009 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 07/18/2009 294.9 OR COG DIS NOS 07/18/2009 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 07/18/2009 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 07/18/2009 ASIF PEDIATRIC UROLOGIST, ALANA S 294.9 OR COG DIS NOS 07/18/2009 ASIF PEDIATRIC UROLOGIST, ALANA S 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 07/18/2009 ASIF PEDIATRIC UROLOGIST, ALANA S 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 07/18/2009 ATKINSON DO, ARGELIA K 294.9 OR COG DIS NOS 07/18/2009 ATKINSON DO, ARGELIA K 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 07/18/2009 ATKINSON DO, ARGELIA K 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 07/18/2009 ATKINSON DO, ARGELIA K 294.9 OR COG DIS NOS 07/18/2009 ATKINSON DO, ARGELIA K 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 07/18/2009 ATKINSON DO, ARGELIA K 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 07/18/2009 ATKINSON DO, ARGELIA K 294.9 OR COG DIS NOS 07/18/2009 ATKINSON DO, ARGELIA K 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 07/18/2009 ATKINSON DO, ARGELIA K 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 07/18/2009 ATKINSON DO, ARGELIA K 294.9 OR COG DIS NOS 07/18/2009 ATKINSON DO, ARGELIA K 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 07/18/2009 ATKINSON DO, ARGELIA K 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 07/18/2009 ATKINSON DO, ARGELIA K 294.9 OR COG DIS NOS 07/18/2009 ATKINSON DO, ARGELIA K 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 07/18/2009 ATKINSON DO, ARGELIA K 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 07/18/2009 ATKINSON DO, ARGELIA K 294.9 OR COG DIS NOS 07/18/2009 ATKINSON DO, ARGELIA K 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 07/18/2009 ATKINSON DO, ARGELIA K 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 07/18/2009 ATKINSON DO, ARGELIA K 294.9 OR COG DIS NOS 07/18/2009 ATKINSON DO, ARGELIA K 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 07/18/2009 ATKINSON DO, ARGELIA K 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 07/18/2009 ATKINSON DO, ARGELIA K 294.9 OR COG DIS NOS 07/18/2009 ATKINSON DO, ARGELIA K 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 07/18/2009 ATKINSON DO, ARGELIA K 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 07/18/2009 BABAK TRIANA MD N 294.9 OR COG DIS NOS 07/18/2009 BABAK TRIANA MD N 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 07/18/2009 BABAK TRIANA MD N 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 07/18/2009 BABAK TRIANA MD N 294.9 OR COG DIS NOS 07/18/2009 BABAK TRIANA MD N 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 07/18/2009 BABAK TRIANA MD N 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 07/18/2009 BABAK TRIANA MD N 294.9 OR COG DIS NOS 07/18/2009 BABAK TRIANA MD N 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 07/18/2009 BABAK TRIANA MD N 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 07/18/2009 BABAK TRIANA MD N 294.9 OR COG DIS NOS 07/18/2009 BABAK TRIANA MD N 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 07/18/2009 BABAK TRIANA MD N 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 07/18/2009 BABAK TRIANA MD N 294.9 OR COG DIS NOS 07/18/2009 BABAK TRIANA MD N 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 07/18/2009 BABAK TRIANA MD N 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 07/18/2009 ASIF POLANCO ALANA S 294.9 OR COG DIS NOS 07/18/2009 ASIF POLANCO ALANA S 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 07/18/2009 ASIF POLANCO ALANA S 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 07/18/2009 ATKINSON DO, ARGELIA K 294.9 OR COG DIS NOS 07/18/2009 ATKINSON DO, ARGELIA K 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 07/18/2009 ATKINSON DO, ARGELIA K 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 07/18/2009 ATKINSON DO, ARGELIA K 294.9 OR COG DIS NOS 07/18/2009 ATKINSON DO, ARGELIA K 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 07/18/2009 ATKINSON DO, ARGELIA K 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 07/18/2009 ATKINSON DO, ARGELIA K 294.9 OR COG DIS NOS 07/18/2009 ATKINSON DO, ARGELIA K 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 07/18/2009 ATKINSON DO, ARGELIA K 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 07/18/2009 BABAK TRIANA MD N 294.9 OR COG DIS NOS 07/18/2009 BABAK TRIANA MD N 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 07/18/2009 BABAK TRIANA MD N 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 07/20/2009 ATKINSON DO ARGELIA K 733.92 CHONDROMALACIA 07/20/2009 ATKINSON DO ARGELIA K 733.92 CHONDROMALACIA 07/20/2009 733.92 CHONDROMALACIA 07/20/2009 ATKINSON DO ARGELIA K 733.92 CHONDROMALACIA 07/20/2009 ATKINSON DO ARGELIA K 733.92 CHONDROMALACIA 07/20/2009 733.92 CHONDROMALACIA 07/20/2009 733.92 CHONDROMALACIA 07/20/2009 733.92 CHONDROMALACIA 07/20/2009 733.92 CHONDROMALACIA 07/20/2009 733.92 CHONDROMALACIA 07/20/2009 733.92 CHONDROMALACIA 07/20/2009 733.92 CHONDROMALACIA 07/20/2009 733.92 CHONDROMALACIA 07/20/2009 ALANA GOLD APRN 733.92 CHONDROMALACIA 07/20/2009 ATKINSON DO ARGELIA K 733.92 CHONDROMALACIA 07/20/2009 ATKINSON DO ARGELIA K 733.92 CHONDROMALACIA 07/20/2009 ATKINSON DO ARGELIA K 733.92 CHONDROMALACIA 07/20/2009 ATKINSON DO, ARGELIA K 733.92 CHONDROMALACIA 07/20/2009 ATKINSON DO, ARGELIA K 733.92 CHONDROMALACIA 07/20/2009 ATKINSON DO ARGELIA K 733.92 CHONDROMALACIA 07/20/2009 CHINA CANO ARGELIA K 733.92 CHONDROMALACIA 07/20/2009 ATKINSON DO ARGELIA K 733.92 CHONDROMALACIA 07/20/2009 KONG GREWAL, BABAK N 733.92 CHONDROMALACIA 07/20/2009 KONG GREWAL, BABAK N 733.92 CHONDROMALACIA 07/20/2009 KONG GREWAL, BABAK N 733.92 CHONDROMALACIA 07/20/2009 KONG GREWAL, BABAK N 733.92 CHONDROMALACIA 07/20/2009 KONG GREWAL, BABAK N 733.92 CHONDROMALACIA 07/20/2009 ALANA GOLD APRN 733.92 CHONDROMALACIA 07/20/2009 ATKINSON DO ARGELIA K 733.92 CHONDROMALACIA 07/20/2009 ATKINSON TIN CANOA K 733.92 CHONDROMALACIA 07/20/2009 ATKINSON DO ARGELIA K 733.92 CHONDROMALACIA 07/20/2009 KONG GREWAL, BABAK N 733.92 CHONDROMALACIA 10/12/2009 Ot 715.36 10/12/2009 Ot V43.64 10/12/2009 Ot V57.1 10/25/2009 ARGELIA ATKINSON DO K V72.31 Pelvic Exam (internal) 10/25/2009 ARGELIA ATKINSON DO K V76.10 Visit For: Screening Exam Malignant Neoplasm Breast 10/25/2009 ARGELIA ATKINSON DO K V72.31 Pelvic Exam (internal) 10/25/2009 ARGELIA ATKINSON DO K V76.10 Visit For: Screening Exam Malignant Neoplasm Breast 10/25/2009 V72.31 Pelvic Exam (internal) 10/25/2009 V76.10 Visit For: Screening Exam Malignant Neoplasm Breast 10/25/2009 ARGELIA ATKINSON DO K V72.31 Pelvic Exam (internal) 10/25/2009 ARGELIA ATKINSON DO K V76.10 Visit For: Screening Exam Malignant Neoplasm Breast 10/25/2009 ARGELIA ATKINSON DO K V72.31 Pelvic Exam (internal) 10/25/2009 ARGELIA ATKINSON DO K V76.10 Visit For: Screening Exam Malignant Neoplasm Breast 10/25/2009 V72.31 Pelvic Exam (internal) 10/25/2009 V76.10 Visit For: Screening Exam Malignant Neoplasm Breast 10/25/2009 V72.31 Pelvic Exam (internal) 10/25/2009 V76.10 Visit For: Screening Exam Malignant Neoplasm Breast 10/25/2009 V72.31 Pelvic Exam (internal) 10/25/2009 V76.10 Visit For: Screening Exam Malignant Neoplasm Breast 10/25/2009 V72.31 Pelvic Exam (internal) 10/25/2009 V76.10 Visit For: Screening Exam Malignant Neoplasm Breast 10/25/2009 V72.31 Pelvic Exam (internal) 10/25/2009 V76.10 Visit For: Screening Exam Malignant Neoplasm Breast 10/25/2009 V72.31 Pelvic Exam (internal) 10/25/2009 V76.10 Visit For: Screening Exam Malignant Neoplasm Breast 10/25/2009 V72.31 Pelvic Exam (internal) 10/25/2009 V76.10 Visit For: Screening Exam Malignant Neoplasm Breast 10/25/2009 V72.31 Pelvic Exam (internal) 10/25/2009 V76.10 Visit For: Screening Exam Malignant Neoplasm Breast 10/25/2009 ASIF PEDIATRIC UROLOGIST ALANA S V72.31 Pelvic Exam (internal) 10/25/2009 ASIF PEDIATRIC UROLOGIST ALANA S V76.10 Visit For: Screening Exam Malignant Neoplasm Breast 10/25/2009 ATKINSON DO, ARGELIA K V72.31 Pelvic Exam (internal) 10/25/2009 ATKINSON DO, ARGELIA K V76.10 Visit For: Screening Exam Malignant Neoplasm Breast 10/25/2009 ATKINSON DO, ARGELIA K V72.31 Pelvic Exam (internal) 10/25/2009 ATKINSON DO, ARGELIA K V76.10 Visit For: Screening Exam Malignant Neoplasm Breast 10/25/2009 ATKINSON DO, ARGELIA K V72.31 Pelvic Exam (internal) 10/25/2009 ATKINSON DO, ARGELIA K V76.10 Visit For: Screening Exam Malignant Neoplasm Breast 10/25/2009 ATKINSON DO, ARGELIA K V72.31 Pelvic Exam (internal) 10/25/2009 ATKINSON DO, ARGELIA K V76.10 Visit For: Screening Exam Malignant Neoplasm Breast 10/25/2009 ATKINSON DO, ARGELIA K V72.31 Pelvic Exam (internal) 10/25/2009 ATKINSON DO, ARGELIA K V76.10 Visit For: Screening Exam Malignant Neoplasm Breast 10/25/2009 ATKINSON DO, ARGELIA K V72.31 Pelvic Exam (internal) 10/25/2009 ATKINSON DO, ARGELIA K V76.10 Visit For: Screening Exam Malignant Neoplasm Breast 10/25/2009 ATKINSON DO, ARGELIA K V72.31 Pelvic Exam (internal) 10/25/2009 ATKINSON DO ARGELIA K V76.10 Visit For: Screening Exam Malignant Neoplasm Breast 10/25/2009 ATKINSON DO, ARGELIA K V72.31 Pelvic Exam (internal) 10/25/2009 ATKINSON DO ARGELIA K V76.10 Visit For: Screening Exam Malignant Neoplasm Breast 10/25/2009 BABAK TRIANA MD V72.31 Pelvic Exam (internal) 10/25/2009 BABAK TRIANA MD V76.10 Visit For: Screening Exam Malignant Neoplasm Breast 10/25/2009 BABAK TRIANA MD V72.31 Pelvic Exam (internal) 10/25/2009 BABAK TRIANA MD V76.10 Visit For: Screening Exam Malignant Neoplasm Breast 10/25/2009 BABAK TRIANA MD V72.31 Pelvic Exam (internal) 10/25/2009 BABAK TRIANA MD V76.10 Visit For: Screening Exam Malignant Neoplasm Breast 10/25/2009 BABAK TRIANA MD N V72.31 Pelvic Exam (internal) 10/25/2009 BABAK TRIANA MD N V76.10 Visit For: Screening Exam Malignant Neoplasm Breast 10/25/2009 BABAK TRIANA MD N V72.31 Pelvic Exam (internal) 10/25/2009 BABAK TRIANA MD N V76.10 Visit For: Screening Exam Malignant Neoplasm Breast 10/25/2009 ALANA GOLD APRN S V72.31 Pelvic Exam (internal) 10/25/2009 MITALI GOLD APRNNDA S V76.10 Visit For: Screening Exam Malignant Neoplasm Breast 10/25/2009 ATKINSON DO ARGELIA K V72.31 Pelvic Exam (internal) 10/25/2009 ATKINSON DO ARGELIA K V76.10 Visit For: Screening Exam Malignant Neoplasm Breast 10/25/2009 ATKINSON DO ARGELIA K V72.31 Pelvic Exam (internal) 10/25/2009 ATKINSON DO ARGELIA K V76.10 Visit For: Screening Exam Malignant Neoplasm Breast 10/25/2009 ATKINSON DO ARGELIA K V72.31 Pelvic Exam (internal) 10/25/2009 ATKINSON DO, ARGELIA K V76.10 Visit For: Screening Exam Malignant Neoplasm Breast 10/25/2009 BABAK TRIANA MD V72.31 Pelvic Exam (internal) 10/25/2009 BABAK TRIANA MD V76.10 Visit For: Screening Exam Malignant Neoplasm Breast 12/04/2009 Ot 173.3 03/01/2010 ATKINSON DO, ARGELIA K 728.87 Weakness 03/01/2010 ATKINSON DO, ARGELIA K 728.87 Weakness 03/01/2010 728.87 Weakness 03/01/2010 ATKINSON DO, ARGELIA K 728.87 Weakness 03/01/2010 ATKINSON DO, ARGELIA K 728.87 Weakness 03/01/2010 728.87 Weakness 03/01/2010 728.87 Weakness 03/01/2010 728.87 Weakness 03/01/2010 728.87 Weakness 03/01/2010 728.87 Weakness 03/01/2010 728.87 Weakness 03/01/2010 728.87 Weakness 03/01/2010 728.87 Weakness 03/01/2010 ALANA GOLD APRN 728.87 Weakness 03/01/2010 ATKINSON DO, ARGELIA K 728.87 Weakness 03/01/2010 ATKINSON DO, ARGELIA K 728.87 Weakness 03/01/2010 ATKINSON DO, ARGELIA K 728.87 Weakness 03/01/2010 ATKINSON DO, ARGELIA K 728.87 Weakness 03/01/2010 ATKINSON DO, ARGELIA K 728.87 Weakness 03/01/2010 ATKINSON DO, ARGELIA K 728.87 Weakness 03/01/2010 ATKINSON DO, ARGELIA K 728.87 Weakness 03/01/2010 ATKISNON DO, ARGELIA K 728.87 Weakness 03/01/2010 BABAK TRIANA MD 728.87 Weakness 03/01/2010 BABAK TRIANA MD 728.87 Weakness 03/01/2010 BABAK TRIANA MD 728.87 Weakness 03/01/2010 BABAK TRIANA MD 728.87 Weakness 03/01/2010 BABAK TRIANA MD 728.87 Weakness 03/01/2010 ALANA GOLD APRN 728.87 Weakness 03/01/2010 ATKINSON DO, ARGELIA K 728.87 Weakness 03/01/2010 ARGELIA ATKINSON DO Julio 728.87 Weakness 03/01/2010 ARGELIA ATKINSON DO 728.87 Weakness 03/01/2010 BABAK TRIANA MD 728.87 Weakness 06/13/2010 Ot 719.45 06/13/2010 Ot 719.46 06/13/2010 Ot 733.00 06/13/2010 Ot V57.1 07/06/2010 Ot 719.45 07/06/2010 Ot 719.46 07/06/2010 Ot 733.00 07/06/2010 Ot V57.1 09/13/2010 Ot 716.90 ARTHROPATHY NOS-UNSPEC 09/13/2010 Ot 719.45 JOINT PAIN-PELVIS 09/13/2010 Ot 719.46 JOINT PAIN-L/LEG 09/13/2010 Ot 733.00 OSTEOPOROSIS NOS 09/13/2010 Ot V57.1 PHYSICAL THERAPY NEC 11/06/2010 ARGELIA ATKINSON DO V04.81 Flu Dx (3 Yrs And Above, Im) 11/06/2010 ARGELIA ATKINSON DO V04.81 Flu Dx (3 Yrs And Above, Im) 11/06/2010 V04.81 Flu Dx (3 Yrs And Above, Im) 11/06/2010 ARGELIA ATKINSON DO V04.81 Flu Dx (3 Yrs And Above, Im) 11/06/2010 ARGELIA ATKINSON DO V04.81 Flu Dx (3 Yrs And Above, Im) 11/06/2010 V04.81 Flu Dx (3 Yrs And Above, Im) 11/06/2010 V04.81 Flu Dx (3 Yrs And Above, Im) 11/06/2010 V04.81 Flu Dx (3 Yrs And Above, Im) 11/06/2010 V04.81 Flu Dx (3 Yrs And Above, Im) 11/06/2010 V04.81 Flu Dx (3 Yrs And Above, Im) 11/06/2010 V04.81 Flu Dx (3 Yrs And Above, Im) 11/06/2010 V04.81 Flu Dx (3 Yrs And Above, Im) 11/06/2010 V04.81 Flu Dx (3 Yrs And Above, Im) 11/06/2010 ALANA GOLD APRN V04.81 Flu Dx (3 Yrs And Above, Im) 11/06/2010 ATKINSON DO, ARGELIA K V04.81 Flu Dx (3 Yrs And Above, Im) 11/06/2010 ATKINSON DO, ARGELIA K V04.81 Flu Dx (3 Yrs And Above, Im) 11/06/2010 ATKINSON DO, ARGELIA K V04.81 Flu Dx (3 Yrs And Above, Im) 11/06/2010 ATKINSON DO, ARGELIA K V04.81 Flu Dx (3 Yrs And Above, Im) 11/06/2010 ATKINSON DO, ARGELIA K V04.81 Flu Dx (3 Yrs And Above, Im) 11/06/2010 ATKINSON DO, ARGELIA K V04.81 Flu Dx (3 Yrs And Above, Im) 11/06/2010 ATKINSON DO, ARGELIA K V04.81 Flu Dx (3 Yrs And Above, Im) 11/06/2010 ATKINSON DO, ARGELIA K V04.81 Flu Dx (3 Yrs And Above, Im) 11/06/2010 BABAK TRIANA MD V04.81 Flu Dx (3 Yrs And Above, Im) 11/06/2010 BABAK TRIANA MD V04.81 Flu Dx (3 Yrs And Above, Im) 11/06/2010 BABAK TRIANA MD V04.81 Flu Dx (3 Yrs And Above, Im) 11/06/2010 BABAK TRIANA MD V04.81 Flu Dx (3 Yrs And Above, Im) 11/06/2010 BABAK TRIANA MD V04.81 Flu Dx (3 Yrs And Above, Im) 11/06/2010 ALANA GOLD APRN V04.81 Flu Dx (3 Yrs And Above, Im) 11/06/2010 ATKINSON DO, ARGELIA K V04.81 Flu Dx (3 Yrs And Above, Im) 11/06/2010 ATKINSON DO, ARGELIA K V04.81 Flu Dx (3 Yrs And Above, Im) 11/06/2010 ATKINSON DO, ARGELIA K V04.81 Flu Dx (3 Yrs And Above, Im) 11/06/2010 BABAK TRIANA MD V04.81 Flu Dx (3 Yrs And Above, Im) 12/24/2010 ATKINSON DO, ARGELIA K 388.70 Otalgia 12/24/2010 ATKINSON DO, ARGELIA K 388.70 Otalgia 12/24/2010 388.70 Otalgia 12/24/2010 ATKINSON DO, ARGELIA K 388.70 Otalgia 12/24/2010 ATKINSON DO, ARGELIA K 388.70 Otalgia 12/24/2010 388.70 Otalgia 12/24/2010 388.70 Otalgia 12/24/2010 388.70 Otalgia 12/24/2010 388.70 Otalgia 12/24/2010 388.70 Otalgia 12/24/2010 388.70 Otalgia 12/24/2010 388.70 Otalgia 12/24/2010 388.70 Otalgia 12/24/2010 ALANA GOLD APRN S 388.70 Otalgia 12/24/2010 ATKINSON DO, ARGELIA K 388.70 Otalgia 12/24/2010 ATKINSON DO, ARGELIA K 388.70 Otalgia 12/24/2010 ATKINSON DO, ARGELIA K 388.70 Otalgia 12/24/2010 ATKINSON DO, ARGELIA K 388.70 Otalgia 12/24/2010 ATKINSON DO, ARGELIA K 388.70 Otalgia 12/24/2010 ATKINSON DO, ARGELIA K 388.70 Otalgia 12/24/2010 ATKINSON DO, ARGELIA K 388.70 Otalgia 12/24/2010 ATKINSON DO, ARGELIA K 388.70 Otalgia 12/24/2010 BABAK TRIANA MD N 388.70 Otalgia 12/24/2010 BABAK TRIANA MD N 388.70 Otalgia 12/24/2010 BABAK TRIANA MD N 388.70 Otalgia 12/24/2010 BABAK TRIANA MD N 388.70 Otalgia 12/24/2010 BABAK TRIANA MD N 388.70 Otalgia 12/24/2010 ALANA GOLD APRN S 388.70 Otalgia 12/24/2010 ATKINSON DO, ARGELIA K 388.70 Otalgia 12/24/2010 ATKINSON DO, ARGELIA K 388.70 Otalgia 12/24/2010 ATKINSON DO, ARGELIA K 388.70 Otalgia 12/24/2010 BABAK TRIANA MD N 388.70 Otalgia 02/08/2011 Ot 716.95 ARTHROPATHY NOS-PELVIS 02/08/2011 Ot 716.96 ARTHROPATHY NOS-L/LEG 02/08/2011 Ot V57.1 PHYSICAL THERAPY NEC 04/22/2011 ARGELIA ATKINSON DO 380.10 Infective Otitis Externa Unspecified 04/22/2011 ARGELIA ATKINSON DO 564.00 Unspecified Constipation 04/22/2011 ARGELIA ATKINSON DO K 380.10 Infective Otitis Externa Unspecified 04/22/2011 ARGELIA ATKINSON DO K 564.00 Unspecified Constipation 04/22/2011 380.10 Infective Otitis Externa Unspecified 04/22/2011 564.00 Unspecified Constipation 04/22/2011 ARGELIA ATKINSON DO K 380.10 Infective Otitis Externa Unspecified 04/22/2011 ARGELIA ATKINSON DO 564.00 Unspecified Constipation 04/22/2011 ARGELIA ATKINSON DO K 380.10 Infective Otitis Externa Unspecified 04/22/2011 ARGELIA ATKINSON DO K 564.00 Unspecified Constipation 04/22/2011 380.10 Infective Otitis Externa Unspecified 04/22/2011 564.00 Unspecified Constipation 04/22/2011 380.10 Infective Otitis Externa Unspecified 04/22/2011 564.00 Unspecified Constipation 04/22/2011 380.10 Infective Otitis Externa Unspecified 04/22/2011 564.00 Unspecified Constipation 04/22/2011 380.10 Infective Otitis Externa Unspecified 04/22/2011 564.00 Unspecified Constipation 04/22/2011 380.10 Infective Otitis Externa Unspecified 04/22/2011 564.00 Unspecified Constipation 04/22/2011 380.10 Infective Otitis Externa Unspecified 04/22/2011 564.00 Unspecified Constipation 04/22/2011 380.10 Infective Otitis Externa Unspecified 04/22/2011 564.00 Unspecified Constipation 04/22/2011 380.10 Infective Otitis Externa Unspecified 04/22/2011 564.00 Unspecified Constipation 04/22/2011 ALANA GOLD APRN 380.10 Infective Otitis Externa Unspecified 04/22/2011 ALANA GOLD APRN 564.00 Unspecified Constipation 04/22/2011 ARGELIA ATKINSON DO 380.10 Infective Otitis Externa Unspecified 04/22/2011 ARGELIA ATKINSON DO 564.00 Unspecified Constipation 04/22/2011 ATKINSON DO, ARGELIA K 380.10 Infective Otitis Externa Unspecified 04/22/2011 ATKINSON DO, ARGELIA K 564.00 Unspecified Constipation 04/22/2011 ATKINSON DO, ARGELIA K 380.10 Infective Otitis Externa Unspecified 04/22/2011 ATKINSON DO, ARGELIA K 564.00 Unspecified Constipation 04/22/2011 ATKINSON DO, ARGELIA K 380.10 Infective Otitis Externa Unspecified 04/22/2011 ATKINSON DO, ARGELIA K 564.00 Unspecified Constipation 04/22/2011 ATKINSON DO, ARGELIA K 380.10 Infective Otitis Externa Unspecified 04/22/2011 ATKINSON DO, ARGELIA K 564.00 Unspecified Constipation 04/22/2011 ATKINSON DO, ARGELIA K 380.10 Infective Otitis Externa Unspecified 04/22/2011 ATKINSON DO, ARGELIA K 564.00 Unspecified Constipation 04/22/2011 ATKINSON DO, ARGELIA K 380.10 Infective Otitis Externa Unspecified 04/22/2011 ATKINSON DO, ARGELIA K 564.00 Unspecified Constipation 04/22/2011 ATKINSON DO, ARGELIA K 380.10 Infective Otitis Externa Unspecified 04/22/2011 ATKINSON DO, ARGELIA K 564.00 Unspecified Constipation 04/22/2011 BABAK TRIANA MD N 380.10 Infective Otitis Externa Unspecified 04/22/2011 BABAK TRIANA MD N 564.00 Unspecified Constipation 04/22/2011 BABAK TRIANA MD N 380.10 Infective Otitis Externa Unspecified 04/22/2011 BABAK TRIANA MD N 564.00 Unspecified Constipation 04/22/2011 BABAK TRIANA MD N 380.10 Infective Otitis Externa Unspecified 04/22/2011 BABAK TRIANA MD N 564.00 Unspecified Constipation 04/22/2011 BABAK TRIANA MD N 380.10 Infective Otitis Externa Unspecified 04/22/2011 BABAK TRIANA MD N 564.00 Unspecified Constipation 04/22/2011 BABAK TRIANA MD N 380.10 Infective Otitis Externa Unspecified 04/22/2011 BABAK TRIANA MD N 564.00 Unspecified Constipation 04/22/2011 ALANA GOLD APRN S 380.10 Infective Otitis Externa Unspecified 04/22/2011 ALANA GOLD APRN S 564.00 Unspecified Constipation 04/22/2011 ATKINSON DO, ARGELIA K 380.10 Infective Otitis Externa Unspecified 04/22/2011 ATKINSON DO, ARGELIA K 564.00 Unspecified Constipation 04/22/2011 ATKINSON DO, ARGELIA K 380.10 Infective Otitis Externa Unspecified 04/22/2011 ATKINSON DO, ARGELIA K 564.00 Unspecified Constipation 04/22/2011 ATKINSON DO, ARGELIA K 380.10 Infective Otitis Externa Unspecified 04/22/2011 ATKINSON DO, ARGELIA K 564.00 Unspecified Constipation 04/22/2011 BABAK TRIANA MD N 380.10 Infective Otitis Externa Unspecified 04/22/2011 BABAK TRIANA MD 564.00 Unspecified Constipation 06/12/2011 ATKINSON DO, ARGELIA K 285.9 ANEMIA 06/12/2011 ATKINSON DO, ARGELIA K 285.9 ANEMIA 06/12/2011 285.9 ANEMIA 06/12/2011 ATKINSON DO, ARGELIA K 285.9 ANEMIA 06/12/2011 ATKINSON DO, ARGELIA K 285.9 ANEMIA 06/12/2011 285.9 ANEMIA 06/12/2011 285.9 ANEMIA 06/12/2011 285.9 ANEMIA 06/12/2011 285.9 ANEMIA 06/12/2011 285.9 ANEMIA 06/12/2011 285.9 ANEMIA 06/12/2011 285.9 ANEMIA 06/12/2011 285.9 ANEMIA 06/12/2011 ALANA GOLD APRN S 285.9 ANEMIA 06/12/2011 ATKINSON DO, ARGELIA K 285.9 ANEMIA 06/12/2011 ATKINSON DO, ARGELIA K 285.9 ANEMIA 06/12/2011 ATKINSON DO, ARGELIA K 285.9 ANEMIA 06/12/2011 ATKINSON DO, ARGELIA K 285.9 ANEMIA 06/12/2011 ATKINSON DO, ARGELIA K 285.9 ANEMIA 06/12/2011 ATKINSON DO, ARGELIA K 285.9 ANEMIA 06/12/2011 ATKINSON DO, ARGELIA K 285.9 ANEMIA 06/12/2011 ATKINSON DO, ARGELIA K 285.9 ANEMIA 06/12/2011 BABAK TRIANA MD N 285.9 ANEMIA 06/12/2011 BABAK TRIANA MD N 285.9 ANEMIA 06/12/2011 BABAK TRIANA MD N 285.9 ANEMIA 06/12/2011 BABAK TRIANA MD N 285.9 ANEMIA 06/12/2011 BABAK TRIANA MD N 285.9 ANEMIA 06/12/2011 ALANA GOLD APRN 285.9 ANEMIA 06/12/2011 TIN ATKINSON DOA K 285.9 ANEMIA 06/12/2011 [place] CANO ARGELIA K 285.9 ANEMIA 06/12/2011 ATKINSON DO ARGELIA K 285.9 ANEMIA 06/12/2011 BABAK TRIANA MD N 285.9 ANEMIA 11/18/2011 ATKINSON DO ARGELIA K 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 11/18/2011 ATKINSON DO ARGELIA K 786.50 Chest Pain 11/18/2011 ATKINSON DO ARGELIA K V04.81 FLU DX (3 YRS AND ABOVE, IM) 11/18/2011 ATKINSON DO ARGELIA K 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 11/18/2011 ATKINSON DO ARGELIA K 786.50 Chest Pain 11/18/2011 ATKINSON DO ARGELIA K V04.81 FLU DX (3 YRS AND ABOVE, IM) 11/18/2011 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 11/18/2011 786.50 Chest Pain 11/18/2011 V04.81 FLU DX (3 YRS AND ABOVE, IM) 11/18/2011 ATKINSON DO ARGELIA K 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 11/18/2011 [place] CANO ARGELIA K 786.50 Chest Pain 11/18/2011 ATKINSON DO ARGELIA K V04.81 FLU DX (3 YRS AND ABOVE, IM) 11/18/2011 ATKINSON DO ARGELIA K 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 11/18/2011 ATKINSON DO ARGELIA K 786.50 Chest Pain 11/18/2011 ATKINSON DO ARGELIA K V04.81 FLU DX (3 YRS AND ABOVE, IM) 11/18/2011 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 11/18/2011 786.50 Chest Pain 11/18/2011 V04.81 FLU DX (3 YRS AND ABOVE, IM) 11/18/2011 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 11/18/2011 786.50 Chest Pain 11/18/2011 V04.81 FLU DX (3 YRS AND ABOVE, IM) 11/18/2011 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 11/18/2011 786.50 Chest Pain 11/18/2011 V04.81 FLU DX (3 YRS AND ABOVE, IM) 11/18/2011 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 11/18/2011 786.50 Chest Pain 11/18/2011 V04.81 FLU DX (3 YRS AND ABOVE, IM) 11/18/2011 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 11/18/2011 786.50 Chest Pain 11/18/2011 V04.81 FLU DX (3 YRS AND ABOVE, IM) 11/18/2011 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 11/18/2011 786.50 Chest Pain 11/18/2011 V04.81 FLU DX (3 YRS AND ABOVE, IM) 11/18/2011 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 11/18/2011 786.50 Chest Pain 11/18/2011 V04.81 FLU DX (3 YRS AND ABOVE, IM) 11/18/2011 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 11/18/2011 786.50 Chest Pain 11/18/2011 V04.81 FLU DX (3 YRS AND ABOVE, IM) 11/18/2011 ASIF PEDIATRIC UROLOGIST, ALNAA S 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 11/18/2011 ASIF PEDIATRIC UROLOGIST, ALANA S 786.50 Chest Pain 11/18/2011 ASIF PEDIATRIC UROLOGIST, ALANA S V04.81 FLU DX (3 YRS AND ABOVE, IM) 11/18/2011 ATKINSON DO, RAGELIA K 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 11/18/2011 ATKINSON DO ARGELIA K 786.50 Chest Pain 11/18/2011 ATKINSON DO, ARGELIA K V04.81 FLU DX (3 YRS AND ABOVE, IM) 11/18/2011 ATKINSON DO, ARGELIA K 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 11/18/2011 ATKINSON DO, ARGELIA K 786.50 Chest Pain 11/18/2011 ATKINSON DO, ARGELIA K V04.81 FLU DX (3 YRS AND ABOVE, IM) 11/18/2011 ATKINSON DO, ARGELIA K 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 11/18/2011 ATKINSON DO, ARGELIA K 786.50 Chest Pain 11/18/2011 ATKINSON DO, ARGELIA K V04.81 FLU DX (3 YRS AND ABOVE, IM) 11/18/2011 TIN ATKINSON DOA K 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 11/18/2011 TIN ATKINSON DOA K 786.50 Chest Pain 11/18/2011 [place] CANO ARGELIA K V04.81 FLU DX (3 YRS AND ABOVE, IM) 11/18/2011 [place] CANO ARGELIA K 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 11/18/2011 [place] CANO ARGELIA K 786.50 Chest Pain 11/18/2011 [place] CANO ARGELIA K V04.81 FLU DX (3 YRS AND ABOVE, IM) 11/18/2011 TIN ATKINSON DOA K 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 11/18/2011 [place] CANO ARGELIA K 786.50 Chest Pain 11/18/2011 [place] CANO ARGELIA K V04.81 FLU DX (3 YRS AND ABOVE, IM) 11/18/2011 TIN ATKINSON DOA K 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 11/18/2011 TIN ATKINSON DOA K 786.50 Chest Pain 11/18/2011 [place] CANO ARGELIA K V04.81 FLU DX (3 YRS AND ABOVE, IM) 11/18/2011 TIN ATKINSON DOA K 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 11/18/2011 TIN ATKINSON DOA K 786.50 Chest Pain 11/18/2011 [place] CANO ARGELIA K V04.81 FLU DX (3 YRS AND ABOVE, IM) 11/18/2011 BABAK TRIANA MD 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 11/18/2011 BABAK TRIANA MD 786.50 Chest Pain 11/18/2011 BABAK TRIANA MD V04.81 FLU DX (3 YRS AND ABOVE, IM) 11/18/2011 BABAK TRIANA MD 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 11/18/2011 BABAK TRIANA MD 786.50 Chest Pain 11/18/2011 BABAK TRIANA MD V04.81 FLU DX (3 YRS AND ABOVE, IM) 11/18/2011 BABAK TRIANA MD 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 11/18/2011 BABAK TRIANA MD 786.50 Chest Pain 11/18/2011 BABAK TRIANA MD V04.81 FLU DX (3 YRS AND ABOVE, IM) 11/18/2011 BABAK TRIANA MD 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 11/18/2011 BABAK TRIANA MD 786.50 Chest Pain 11/18/2011 BABAK TRIANA MD V04.81 FLU DX (3 YRS AND ABOVE, IM) 11/18/2011 BABAK TRIANA MD N 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 11/18/2011 BABAK TRIANA MD 786.50 Chest Pain 11/18/2011 BABAK TRIANA MD V04.81 FLU DX (3 YRS AND ABOVE, IM) 11/18/2011 ASIF POLANCO ALANA S 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 11/18/2011 ASIF PEDIATRIC UROLOGIST, ALANA S 786.50 Chest Pain 11/18/2011 ASIF PEDIATRIC UROLOGIST, ALANA S V04.81 FLU DX (3 YRS AND ABOVE, IM) 11/18/2011 ARGELIA ATKINSON DO K 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 11/18/2011 [place] CANO ARGELIA K 786.50 Chest Pain 11/18/2011 [place] CANO ARGELIA K V04.81 FLU DX (3 YRS AND ABOVE, IM) 11/18/2011 [place] CANO ARGELIA K 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 11/18/2011 ATKINSON DO ARGELIA K 786.50 Chest Pain 11/18/2011 ATKINSON DO ARGELIA K V04.81 FLU DX (3 YRS AND ABOVE, IM) 11/18/2011 [place] CANO ARGELIA K 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 11/18/2011 ATKINSON DO ARGELIA K 786.50 Chest Pain 11/18/2011 ATKINSON DO ARGELIA K V04.81 FLU DX (3 YRS AND ABOVE, IM) 11/18/2011 BABAK TRIANA MD 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 11/18/2011 BABAK TRIANA MD 786.50 Chest Pain 11/18/2011 BABAK TRIANA MD V04.81 FLU DX (3 YRS AND ABOVE, IM) 11/21/2011 ARGELIA ATKINSON DO K 726.5 ENTHESOPATHY OF HIP REGION 11/21/2011 ARGELIA ATKINSON DO K 726.5 ENTHESOPATHY OF HIP REGION 11/21/2011 726.5 ENTHESOPATHY OF HIP REGION 11/21/2011 ATKINSON DO, ARGELIA K 726.5 ENTHESOPATHY OF HIP REGION 11/21/2011 ATKINSON DO, ARGELIA K 726.5 ENTHESOPATHY OF HIP REGION 11/21/2011 726.5 ENTHESOPATHY OF HIP REGION 11/21/2011 726.5 ENTHESOPATHY OF HIP REGION 11/21/2011 726.5 ENTHESOPATHY OF HIP REGION 11/21/2011 726.5 ENTHESOPATHY OF HIP REGION 11/21/2011 726.5 ENTHESOPATHY OF HIP REGION 11/21/2011 726.5 ENTHESOPATHY OF HIP REGION 11/21/2011 726.5 ENTHESOPATHY OF HIP REGION 11/21/2011 726.5 ENTHESOPATHY OF HIP REGION 11/21/2011 ALANA GOLD APRN 726.5 ENTHESOPATHY OF HIP REGION 11/21/2011 ATKINSON DO ARGELIA K 726.5 ENTHESOPATHY OF HIP REGION 11/21/2011 ATKINSON DO ARGELIA K 726.5 ENTHESOPATHY OF HIP REGION 11/21/2011 ATKINSON DO, ARGELIA K 726.5 ENTHESOPATHY OF HIP REGION 11/21/2011 ATKINSON DO ARGELIA K 726.5 ENTHESOPATHY OF HIP REGION 11/21/2011 ATKINSON DO, ARGELIA K 726.5 ENTHESOPATHY OF HIP REGION 11/21/2011 ATKINSON DO ARGELIA K 726.5 ENTHESOPATHY OF HIP REGION 11/21/2011 ATKINSON DO ARGELIA K 726.5 ENTHESOPATHY OF HIP REGION 11/21/2011 ATKINSON DO ARGELIA K 726.5 ENTHESOPATHY OF HIP REGION 11/21/2011 BABAK TRIANA MD 726.5 ENTHESOPATHY OF HIP REGION 11/21/2011 BABAK TRIANA MD 726.5 ENTHESOPATHY OF HIP REGION 11/21/2011 BABAK TRIANA MD 726.5 ENTHESOPATHY OF HIP REGION 11/21/2011 BABAK TRIANA MD 726.5 ENTHESOPATHY OF HIP REGION 11/21/2011 BABAK TRIANA MD 726.5 ENTHESOPATHY OF HIP REGION 11/21/2011 ALANA GOLD APRN 726.5 ENTHESOPATHY OF HIP REGION 11/21/2011 ATKINSON DO ARGELIA K 726.5 ENTHESOPATHY OF HIP REGION 11/21/2011 ATKINSON DO, ARGELIA K 726.5 ENTHESOPATHY OF HIP REGION 11/21/2011 ATKINSON DO, ARGELIA K 726.5 ENTHESOPATHY OF HIP REGION 11/21/2011 KONG GREWAL, BABAK Sheppard 726.5 ENTHESOPATHY OF HIP REGION 01/23/2012 ATKINSON DO ARGELIA K 719.45 PAIN IN JOINT INVOLVING PELVIC REGION AND THIGH 01/23/2012 719.45 PAIN IN JOINT INVOLVING PELVIC REGION AND THIGH 01/23/2012 ATKINSON DO ARGELIA K 719.45 PAIN IN JOINT INVOLVING PELVIC REGION AND THIGH 01/23/2012 ATKINSON DO ARGELIA K 719.45 PAIN IN JOINT INVOLVING PELVIC REGION AND THIGH 01/23/2012 719.45 PAIN IN JOINT INVOLVING PELVIC REGION AND THIGH 01/23/2012 719.45 PAIN IN JOINT INVOLVING PELVIC REGION AND THIGH 01/23/2012 719.45 PAIN IN JOINT INVOLVING PELVIC REGION AND THIGH 01/23/2012 719.45 PAIN IN JOINT INVOLVING PELVIC REGION AND THIGH 01/23/2012 719.45 PAIN IN JOINT INVOLVING PELVIC REGION AND THIGH 01/23/2012 719.45 PAIN IN JOINT INVOLVING PELVIC REGION AND THIGH 01/23/2012 719.45 PAIN IN JOINT INVOLVING PELVIC REGION AND THIGH 01/23/2012 719.45 PAIN IN JOINT INVOLVING PELVIC REGION AND THIGH 01/23/2012 ALANA GOLD APRN 719.45 PAIN IN JOINT INVOLVING PELVIC REGION AND THIGH 01/23/2012 ATKINSON DO ARGELIA K 719.45 PAIN IN JOINT INVOLVING PELVIC REGION AND THIGH 01/23/2012 ATKINSON DO ARGELIA K 719.45 PAIN IN JOINT INVOLVING PELVIC REGION AND THIGH 01/23/2012 ATKINSON DO ARGELIA K 719.45 PAIN IN JOINT INVOLVING PELVIC REGION AND THIGH 01/23/2012 ATKINSON DO ARGELIA K 719.45 PAIN IN JOINT INVOLVING PELVIC REGION AND THIGH 01/23/2012 ATKINSON DO ARGELIA K 719.45 PAIN IN JOINT INVOLVING PELVIC REGION AND THIGH 01/23/2012 ATKINSON DO ARGELIA K 719.45 PAIN IN JOINT INVOLVING PELVIC REGION AND THIGH 01/23/2012 ATKINSON DO, ARGELIA K 719.45 PAIN IN JOINT INVOLVING PELVIC REGION AND THIGH 01/23/2012 TIN ATKINSON DOA K 719.45 PAIN IN JOINT INVOLVING PELVIC REGION AND THIGH 01/23/2012 BABAK TRIANA MD 719.45 PAIN IN JOINT INVOLVING PELVIC REGION AND THIGH 01/23/2012 BABAK TRIANA MD 719.45 PAIN IN JOINT INVOLVING PELVIC REGION AND THIGH 01/23/2012 BABAK TRIANA MD 719.45 PAIN IN JOINT INVOLVING PELVIC REGION AND THIGH 01/23/2012 BABAK TRIANA MD 719.45 PAIN IN JOINT INVOLVING PELVIC REGION AND THIGH 01/23/2012 BABAK TRIANA MD 719.45 PAIN IN JOINT INVOLVING PELVIC REGION AND THIGH 01/23/2012 ALANA GOLD APRN 719.45 PAIN IN JOINT INVOLVING PELVIC REGION AND THIGH 01/23/2012 ARGELIA ATKINSON DO K 719.45 PAIN IN JOINT INVOLVING PELVIC REGION AND THIGH 01/23/2012 ARGELIA ATKINSON DO 719.45 PAIN IN JOINT INVOLVING PELVIC REGION AND THIGH 01/23/2012 TIN ATKINSON DOA K 719.45 PAIN IN JOINT INVOLVING PELVIC REGION AND THIGH 01/23/2012 BABAK TRIANA MD N 719.45 PAIN IN JOINT INVOLVING PELVIC REGION AND THIGH 06/07/2012 Ot 780.99 OTHER GENERAL SYMPTOMS NOS 07/19/2012 DEANA PERDOMO Ot 703.0 INGROWING NAIL 07/19/2012 DEANA PERDOMO Ot 729.5 PAIN IN LIMB 07/28/2012 729.5 PAIN IN LIMB 07/28/2012 729.5 PAIN IN LIMB 07/28/2012 729.5 PAIN IN LIMB 07/28/2012 729.5 PAIN IN LIMB 07/28/2012 729.5 PAIN IN LIMB 07/28/2012 ALANA GOLD APRN 729.5 PAIN IN LIMB 07/28/2012 TIN ATKINSON DOA K 729.5 PAIN IN LIMB 07/28/2012 TIN ATKINSON DOA K 729.5 PAIN IN LIMB 07/28/2012 TIN ATKINSON DOA K 729.5 PAIN IN LIMB 07/28/2012 TIN ATKINSON DOA K 729.5 PAIN IN LIMB 07/28/2012 ATKINSON DO, ARGELIA K 729.5 PAIN IN LIMB 07/28/2012 ATKINSON DO, ARGELIA K 729.5 PAIN IN LIMB 07/28/2012 ATKINSON DO, ARGELIA K 729.5 PAIN IN LIMB 07/28/2012 ATKINSON DO, ARGELIA K 729.5 PAIN IN LIMB 07/28/2012 BABAK TRIANA MD 729.5 PAIN IN LIMB 07/28/2012 BABAK TRIANA MD N 729.5 PAIN IN LIMB 07/28/2012 BABAK TRIANA MD N 729.5 PAIN IN LIMB 07/28/2012 BABAK TRIANA MD N 729.5 PAIN IN LIMB 07/28/2012 BABAK TRIANA MD N 729.5 PAIN IN LIMB 07/28/2012 ALANA GOLD APRN 729.5 PAIN IN LIMB 07/28/2012 ATKINSON DO, ARGELIA K 729.5 PAIN IN LIMB 07/28/2012 ATKINSON DO, ARGELIA K 729.5 PAIN IN LIMB 07/28/2012 ATKINSON DO, ARGELIA K 729.5 PAIN IN LIMB 07/28/2012 BABAK TRIANA MD N 729.5 PAIN IN LIMB 09/16/2012 786.52 PAINFUL RESPIRATION 09/16/2012 786.52 PAINFUL RESPIRATION 09/16/2012 786.52 PAINFUL RESPIRATION 09/16/2012 ALANA GOLD APRN 786.52 PAINFUL RESPIRATION 09/16/2012 ATKINSON DO, ARGELIA K 786.52 PAINFUL RESPIRATION 09/16/2012 ATKINSON DO, ARGELIA K 786.52 PAINFUL RESPIRATION 09/16/2012 ATKINSON DO, ARGELIA K 786.52 PAINFUL RESPIRATION 09/16/2012 ATKINSON DO, ARGELIA K 786.52 PAINFUL RESPIRATION 09/16/2012 ATKINSON DO, ARGELIA K 786.52 PAINFUL RESPIRATION 09/16/2012 ATKINSON DO, ARGELIA K 786.52 PAINFUL RESPIRATION 09/16/2012 ATKINSON DO, ARGELIA K 786.52 PAINFUL RESPIRATION 09/16/2012 ATKINSON DO, ARGELIA K 786.52 PAINFUL RESPIRATION 09/16/2012 BABAK TRIANA MD N 786.52 PAINFUL RESPIRATION 09/16/2012 BABAK TRIANA MD N 786.52 PAINFUL RESPIRATION 09/16/2012 BABAK TRIANA MD N 786.52 PAINFUL RESPIRATION 09/16/2012 BABAK TRIANA MD N 786.52 PAINFUL RESPIRATION 09/16/2012 BABAK TRIANA MD 786.52 PAINFUL RESPIRATION 09/16/2012 ALANA GOLD APRN 786.52 PAINFUL RESPIRATION 09/16/2012 ATKINSON DO, ARGELIA K 786.52 PAINFUL RESPIRATION 09/16/2012 ATKINSON DO, ARGELIA K 786.52 PAINFUL RESPIRATION 09/16/2012 ATKINSON DO, ARGELIA K 786.52 PAINFUL RESPIRATION 09/16/2012 BABAK TRIANA MD 786.52 PAINFUL RESPIRATION 10/03/2012 ANATOLIY GREWAL, JOSE Pena Ot 912.4 INSECT BITE SHOULDER/ARM 10/03/2012 ANATOLIY GREWAL, JOSE A Ot E000.8 OTHER EXTERNAL CAUSE STATUS 10/03/2012 ANATOLIY GREWAL, JOSE Pena Ot E906.4 NONVENOM ARTHROPOD BITE 10/21/2012 078.10 VIRAL WARTS UNSPECIFIED 10/21/2012 ALANA GOLD APRN S 078.10 VIRAL WARTS UNSPECIFIED 10/21/2012 [place] DO ARGELIA K 078.10 VIRAL WARTS UNSPECIFIED 10/21/2012 [place] DO ARGELIA K 078.10 VIRAL WARTS UNSPECIFIED 10/21/2012 ATKINSON DO, ARGELIA K 078.10 VIRAL WARTS UNSPECIFIED 10/21/2012 ATKINSON DO, ARGELIA K 078.10 VIRAL WARTS UNSPECIFIED 10/21/2012 ATKINSON DO ARGELIA K 078.10 VIRAL WARTS UNSPECIFIED 10/21/2012 ATKINSON DO, ARGELIA K 078.10 VIRAL WARTS UNSPECIFIED 10/21/2012 ATKINSON DO ARGELIA K 078.10 VIRAL WARTS UNSPECIFIED 10/21/2012 [place] CANO ARGELIA K 078.10 VIRAL WARTS UNSPECIFIED 10/21/2012 BABAK TRIANA MD N 078.10 VIRAL WARTS UNSPECIFIED 10/21/2012 BABAK TRIANA MD 078.10 VIRAL WARTS UNSPECIFIED 10/21/2012 BABAK TRIANA MD 078.10 VIRAL WARTS UNSPECIFIED 10/21/2012 BABAK TRIANA MD 078.10 VIRAL WARTS UNSPECIFIED 10/21/2012 BABAK TRIANA MD 078.10 VIRAL WARTS UNSPECIFIED 10/21/2012 ASIF PEDIATRIC UROLOGIST, ALANA S 078.10 VIRAL WARTS UNSPECIFIED 10/21/2012 ARGELIA ATKINSON DO K 078.10 VIRAL WARTS UNSPECIFIED 10/21/2012 ARGELIA ATKINSON DO K 078.10 VIRAL WARTS UNSPECIFIED 10/21/2012 ATKINSON ARGELIA CANO K 078.10 VIRAL WARTS UNSPECIFIED 10/21/2012 KONG GREWAL, BABAK Sheppard 078.10 VIRAL WARTS UNSPECIFIED 11/01/2012 ANATOLIY GREWAL, JOSE A Ot 719.45 JOINT PAIN-PELVIS 11/29/2012 ARNULFO GREWAL, HALLEY Staples Ot 338.29 OTHER CHRONIC PAIN 11/29/2012 ARNULFO GREWAL, HALLEY Staples Ot 719.45 JOINT PAIN-PELVIS 12/13/2012 ARNULFO GREWAL, HALLEY T Ot 338.29 OTHER CHRONIC PAIN 12/13/2012 ARNULFO GREWAL, HALLEY T Ot 719.45 JOINT PAIN-PELVIS 12/27/2012 SANKET CANO BRIGID Julio Ot 304.90 DRUG DEPEND NOS-UNSPEC 12/27/2012 SANKET CANO BRIGID K Ot 338.29 OTHER CHRONIC PAIN 12/27/2012 SANKET CANO BRIGID K Ot 780.60 FEVER, UNSPECIFIED 12/27/2012 SANKET CANO, BRIGID K Ot 788.41 URINARY FREQUENCY 05/14/2013 SANKET CANO BRIGID K Ot 304.00 OPIOID DEPENDENCE-UNSPEC 05/14/2013 SANKET CANO BRIGID K Ot 338.29 OTHER CHRONIC PAIN 05/14/2013 SANKET CANO BRIGID K Ot 719.45 JOINT PAIN-PELVIS 05/14/2013 SANKET CANO BRIGID K Ot 719.46 JOINT PAIN-L/LEG 05/14/2013 SANKET CANO BRIGID K Ot 729.5 PAIN IN LIMB 07/13/2013 FEDERICA REYES PEDIATRIC UROLOGIST Ot 338.29 OTHER CHRONIC PAIN 07/13/2013 FEDERICA REYES PEDIATRIC UROLOGIST Ot 599.0 URIN TRACT INFECTION NOS 07/13/2013 FEDERICA REYES PEDIATRIC UROLOGIST Ot 729.5 PAIN IN LIMB 07/26/2013 ARGELIA ATKINSON DO 578.1 BLOOD IN STOOL 07/26/2013 ARGELIA ATKINSON DO 578.1 BLOOD IN STOOL 07/26/2013 ARGELIA ATKINSON DO 780.93 MEMORY LOSS 07/26/2013 BABAK TRIANA MD N 578.1 BLOOD IN STOOL 07/26/2013 BABAK TRIANA MD N 780.93 MEMORY LOSS 07/26/2013 BABAK TRIANA MD N 578.1 BLOOD IN STOOL 07/26/2013 BABAK TRIANA MD N 780.93 MEMORY LOSS 07/26/2013 BABAK TRIANA MD N 578.1 BLOOD IN STOOL 07/26/2013 BABAK TRIANA MD N 780.93 MEMORY LOSS 07/26/2013 BABAK TRIANA MD N 578.1 BLOOD IN STOOL 07/26/2013 BABAK TRIANA MD N 780.93 MEMORY LOSS 07/26/2013 BABAK TRIANA MD 578.1 BLOOD IN STOOL 07/26/2013 BABAK TRIANA MD N 780.93 MEMORY LOSS 07/26/2013 ALANA GOLD APRN S 578.1 BLOOD IN STOOL 07/26/2013 ALANA GOLD APRN S 780.93 MEMORY LOSS 07/26/2013 ATKINSON DO, ARGELIA K 578.1 BLOOD IN STOOL 07/26/2013 ATKINSON DO, ARGELIA K 780.93 MEMORY LOSS 07/26/2013 ATKINSON DO, ARGELIA K 578.1 BLOOD IN STOOL 07/26/2013 ATKINSON DO, ARGELIA K 780.93 MEMORY LOSS 07/26/2013 ATKINSON DO, ARGELIA K 578.1 BLOOD IN STOOL 07/26/2013 ATKINSON DO, ARGELIA K 780.93 MEMORY LOSS 07/26/2013 BABAK TRIANA MD N 578.1 BLOOD IN STOOL 07/26/2013 BABAK TRIANA MD N 780.93 MEMORY LOSS 08/01/2013 DEANA PERDOMO Ot 300.00 ANXIETY STATE NOS 08/01/2013 DEANA PERDOMO Ot 304.90 DRUG DEPEND NOS-UNSPEC 08/01/2013 DEANA PERDOMO Ot 311 DEPRESSIVE DISORDER NEC 08/01/2013 DEANA PERDOMO Ot 338.29 OTHER CHRONIC PAIN 08/01/2013 DEANA PERDOMO Ot 562.10 DIVERTICULOSIS COLON (W/O MENT OF HEMORR 08/01/2013 DEANA PERDOMO Ot 716.90 ARTHROPATHY NOS-UNSPEC 08/07/2013 CESAR KNIGHT MD Ot 300.00 ANXIETY STATE NOS 08/07/2013 CESAR KNIGHT MD Ot 304.90 DRUG DEPEND NOS-UNSPEC 08/07/2013 CESAR KNIGHT MD Ot 311 DEPRESSIVE DISORDER NEC 08/07/2013 CESAR KNIGHT MD Ot 338.29 OTHER CHRONIC PAIN 08/07/2013 CESAR KNIGHT MD Ot 564.00 UNSPEC CONSTIPATION 08/07/2013 CESAR KNIGHT MD Ot 569.3 RECTAL ANAL HEMORRHAGE 08/07/2013 CESAR KNIGHT MD Ot 599.0 URIN TRACT INFECTION NOS 08/07/2013 CESAR KNIGHT MD Ot 716.90 ARTHROPATHY NOS-UNSPEC 08/07/2013 CESAR KNIGHT MD Ot 719.45 JOINT PAIN-PELVIS 08/07/2013 CESAR KNIGHT MD Ot 729.5 PAIN IN LIMB 08/07/2013 CESAR KNIGHT MD Ot 789.00 ABDOMINAL PAIN, UNSPECIFIED SITE 08/28/2013 JOSE COPE MD Ot 300.00 ANXIETY STATE NOS 08/28/2013 JOSE COPE MD Ot 304.90 DRUG DEPEND NOS-UNSPEC 08/28/2013 JOSE COPE MD Ot 311 DEPRESSIVE DISORDER NEC 08/28/2013 JOSE COPE MD Ot 338.29 OTHER CHRONIC PAIN 08/28/2013 JOSE COPE MD Ot 562.10 DIVERTICULOSIS COLON (W/O MENT OF HEMORR 08/28/2013 JOSE COPE MD Ot 716.90 ARTHROPATHY NOS-UNSPEC 08/28/2013 JOSE COPE MD Ot 789.09 ABDOMINAL PAIN, OTHER SPECIFIED SITE 08/28/2013 JOSE COPE MD Ot V58.62 ENCOUNT FOR LONG-TERM(CURRENT) USE OF AN 08/28/2013 JOSE COPE MD, Ot V58.69 OTH MED,LT,CURRENT USE 08/29/2013 FEDERICA REYES PEDIATRIC UROLOGIST Ot 300.00 ANXIETY STATE NOS 08/29/2013 FEDERICA REYES PEDIATRIC UROLOGIST Ot 304.90 DRUG DEPEND NOS-UNSPEC 08/29/2013 FEDERICA REYES PEDIATRIC UROLOGIST Ot 311 DEPRESSIVE DISORDER NEC 08/29/2013 FEDERICA REYES PEDIATRIC UROLOGIST Ot 338.29 OTHER CHRONIC PAIN 08/29/2013 FEDERICA REYES PEDIATRIC UROLOGIST Ot 562.10 DIVERTICULOSIS COLON (W/O MENT OF HEMORR 08/29/2013 FEDERICA REYES PEDIATRIC UROLOGIST Ot 599.0 URIN TRACT INFECTION NOS 08/29/2013 FEDERICA REYES PEDIATRIC UROLOGIST Ot 716.90 ARTHROPATHY NOS-UNSPEC 08/29/2013 FEDERICA REYES PEDIATRIC UROLOGIST Ot 789.00 ABDOMINAL PAIN, UNSPECIFIED SITE 09/05/2013 Ot 300.00 ANXIETY STATE NOS 09/05/2013 Ot 304.90 DRUG DEPEND NOS-UNSPEC 09/05/2013 Ot 311 DEPRESSIVE DISORDER NEC 09/05/2013 Ot 338.29 OTHER CHRONIC PAIN 09/05/2013 Ot 562.10 DIVERTICULOSIS COLON (W/O MENT OF HEMORR 09/05/2013 Ot 716.90 ARTHROPATHY NOS-UNSPEC 09/05/2013 Ot 789.00 ABDOMINAL PAIN, UNSPECIFIED SITE 09/05/2013 Ot 789.09 ABDOMINAL PAIN, OTHER SPECIFIED SITE 09/05/2013 Ot V13.02 PERSONAL HISTORY, URINARY (TRACT) INFECT 09/07/2013 DEANA PERDOMO Ot 300.00 ANXIETY STATE NOS 09/07/2013 DEANA PERDOMO Ot 338.29 OTHER CHRONIC PAIN 09/07/2013 DEANA PERDOMO Ot 729.5 PAIN IN LIMB 09/07/2013 DEANA PERDOMO Ot V58.69 OTH MED,LT,CURRENT USE 09/17/2013 FEDERICA REYES PEDIATRIC UROLOGIST Ot 300.00 ANXIETY STATE NOS 09/17/2013 FEDERICA REYES PEDIATRIC UROLOGIST Ot 304.90 DRUG DEPEND NOS-UNSPEC 09/17/2013 FEDERICA REYES PEDIATRIC UROLOGIST Ot 311 DEPRESSIVE DISORDER NEC 09/17/2013 FEDERICA REYES PEDIATRIC UROLOGIST Ot 338.29 OTHER CHRONIC PAIN 09/17/2013 FEDERICA REYES PEDIATRIC UROLOGIST Ot 716.90 ARTHROPATHY NOS-UNSPEC 09/17/2013 FEDERICA REYES PEDIATRIC UROLOGIST Ot 719.41 JOINT PAIN-SHLDER 09/17/2013 FEDERICA REYES PEDIATRIC UROLOGIST Ot 719.45 JOINT PAIN-PELVIS 09/17/2013 FEDERICA REYES PEDIATRIC UROLOGIST Ot 723.1 CERVICALGIA 09/17/2013 FEDERICA REYES PEDIATRIC UROLOGIST Ot 729.5 PAIN IN LIMB 09/17/2013 FEDERICA REYES PEDIATRIC UROLOGIST Ot 789.00 ABDOMINAL PAIN, UNSPECIFIED SITE 09/17/2013 FEDERICA REYES PEDIATRIC UROLOGIST Ot V58.69 OTH MED,LT,CURRENT USE 10/10/2013 DEANA PERDOMO Ot 300.00 ANXIETY STATE NOS 10/10/2013 DEANA PERDOMO Ot 380.10 INFEC OTITIS EXTERNA NOS 10/10/2013 DEANA PERDOMO Ot 388.70 OTALGIA NOS 10/20/2013 BABAK TRIANA MD 388.70 OTALGIA UNSPECIFIED 10/20/2013 BABAK TRIANA MD 388.70 OTALGIA UNSPECIFIED 10/20/2013 BABAK TRIANA MD 388.70 OTALGIA UNSPECIFIED 10/20/2013 BABAK TRIANA MD 388.70 OTALGIA UNSPECIFIED 10/20/2013 BABAK TRIANA MD 388.70 OTALGIA UNSPECIFIED 10/20/2013 ALANA GOLD APRN 388.70 OTALGIA UNSPECIFIED 10/20/2013 ARGELIA ATKINSON DO K 388.70 OTALGIA UNSPECIFIED 10/20/2013 TIN ATKINSON DOA K 388.70 OTALGIA UNSPECIFIED 10/20/2013 TIN ATKINSON DOA K 388.70 OTALGIA UNSPECIFIED 10/20/2013 BABAK TRIANA MD 388.70 OTALGIA UNSPECIFIED 12/03/2013 FEDERICA REYES PEDIATRIC UROLOGIST Ot 304.90 DRUG DEPEND NOS-UNSPEC 12/03/2013 FEDERICA REYES PEDIATRIC UROLOGIST Ot 782.0 SKIN SENSATION DISTURB 12/17/2013 BABAK TRIANA MD V04.81 FLU SHOT 12/17/2013 BABAK TRIANA MD V04.81 FLU SHOT 12/17/2013 BABAK TRIANA MD V04.81 FLU SHOT 12/17/2013 BABAK TRIANA MD V04.81 FLU SHOT 12/17/2013 ALANA GOLD APRN V04.81 FLU SHOT 12/17/2013 ATKINSON DOTINA K V04.81 FLU SHOT 12/17/2013 ATKINSON DO ARGELIA K V04.81 FLU SHOT 12/17/2013 ATKINSON DO ARGELIA K V04.81 FLU SHOT 12/17/2013 BABAK TRIANA MD N V04.81 FLU SHOT 03/12/2014 FEDERICA REYES PEDIATRIC UROLOGIST Ot 715.90 OSTEOARTHROS NOS-UNSPEC 03/12/2014 FEDERICA REYES PEDIATRIC UROLOGIST Ot 729.5 PAIN IN LIMB 03/20/2014 DEANA PERDOMO Ot 304.90 DRUG DEPEND NOS-UNSPEC 03/20/2014 DEANA PERDOMO Ot 729.5 PAIN IN LIMB 03/25/2014 TIN ATKINSON DOA K 682.9 CELLULITIS AND ABSCESS OF UNSPECIFIED SITES 03/25/2014 [place] CANO ARGELIA K 682.9 CELLULITIS AND ABSCESS OF UNSPECIFIED SITES 03/25/2014 [place] CANO ARGELIA K 682.9 CELLULITIS AND ABSCESS OF UNSPECIFIED SITES 03/25/2014 BABAK TRIANA MD 682.9 CELLULITIS AND ABSCESS OF UNSPECIFIED SITES 03/29/2014 [place] CANO ARGELIA K 461.9 SINUSITIS ACUTE 03/29/2014 [place] CANO ARGELIA K 466.0 BRONCHITIS, ACUTE 03/29/2014 [place] CANO ARGELIA K 709.9 UNSPECIFIED DISORDER OF SKIN AND SUBCUTANEOUS TISSUE 03/29/2014 [place] CANO ARGELIA K 461.9 SINUSITIS ACUTE 03/29/2014 [place] CANO ARGELIA K 466.0 BRONCHITIS, ACUTE 03/29/2014 [place] CANO ARGELIA K 709.9 UNSPECIFIED DISORDER OF SKIN AND SUBCUTANEOUS TISSUE 03/29/2014 [place] CANO ARGELIA K 461.9 SINUSITIS ACUTE 03/29/2014 [place] CANO ARGELIA K 466.0 BRONCHITIS, ACUTE 03/29/2014 [place] CANO ARGELIA K 709.9 UNSPECIFIED DISORDER OF SKIN AND SUBCUTANEOUS TISSUE 03/29/2014 BABAK TRIANA MD N 461.9 SINUSITIS ACUTE 03/29/2014 BABAK TRIANA MD N 466.0 BRONCHITIS, ACUTE 03/29/2014 BABAK TRIANA MD N 709.9 UNSPECIFIED DISORDER OF SKIN AND SUBCUTANEOUS TISSUE 04/08/2014 [place] CANO ARGELIA K Ot 599.0 04/08/2014 [place] CANO ARGELIA K Ot 599.0 04/11/2014 ATKINSON DO ARGELIA K Ot 599.0 04/12/2014 [place] CANO ARGELIA K Ot 041.7 PSEUDOMONAS INFECT NOS 04/12/2014 ARGELIA ATKINSON DO Ot 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 04/12/2014 ARGELIA ATKINSON DO Ot 298.9 PSYCHOSIS NOS 04/12/2014 ARGELIA ATKINSON DO Ot 300.00 ANXIETY STATE NOS 04/12/2014 ARGELIA ATKINSON DO Ot 304.90 DRUG DEPEND NOS-UNSPEC 04/12/2014 ARGELIA ATKINSON DO Ot 307.9 SPECIAL SYMPTOM NEC/NOS 04/12/2014 ARGELIA ATKINSON DO Ot 338.29 OTHER CHRONIC PAIN 04/12/2014 ARGELIA ATKINSON DO Ot 599.0 URIN TRACT INFECTION NOS 04/12/2014 ARGELIA ATKINSON DO Ot 715.90 OSTEOARTHROS NOS-UNSPEC 04/12/2014 TIN ATKINSON DOA Julio Ot 733.90 BONE CARTILAGE DIS NOS 06/11/2014 EUGENE GREWAL, CESAR Lozano Ot 490 BRONCHITIS NOS 06/11/2014 EUGENE GREWAL, CESAR Lozano Ot 786.2 COUGH 06/18/2014 FEDERICA REYES PEDIATRIC UROLOGIST Ot 300.00 ANXIETY STATE NOS 06/20/2014 FEDERICA REYES PEDIATRIC UROLOGIST Ot 300.00 ANXIETY STATE NOS 07/10/2014 FEDERICA REYES PEDIATRIC UROLOGIST Ot 729.81 SWELLING OF LIMB 07/10/2014 FEDERICA REYES PEDIATRIC UROLOGIST Ot 782.3 EDEMA 07/10/2014 FEDERICA REYES PEDIATRIC UROLOGIST Ot V62.89 PSYCHOLOGICAL STRESS NEC 08/09/2014 Ot 733.90 08/09/2014 Ot V76.12 08/09/2014 Ot 173.3 08/09/2014 Ot V72.83 08/09/2014 Ot V74.8 09/21/2014 DEANA PERDOMO Ot 110.1 DERMATOPHYTOSIS OF NAIL 09/21/2014 DEANA PERDOMO Ot 681.10 CELLULITIS, TOE NOS 09/21/2014 DEANA PERDOMO Ot 916.4 INSECT BITE HIP LEG 09/21/2014 DEANA PERDOMO Ot E000.8 OTHER EXTERNAL CAUSE STATUS 09/21/2014 DEANA PERDOMO Ot E906.4 NONVENOM ARTHROPOD BITE 09/28/2014 Ot 733.90 09/28/2014 Ot V76.12 09/28/2014 Ot 173.3 09/28/2014 Ot V72.83 09/28/2014 Ot V74.8 03/10/2015 BABAK TRIANA MD Ot M25.551 03/10/2015 BABAK TRIANA MD Ot M25.552 03/22/2015 BABAK TRIANA MD Ot M25.551 PAIN IN RIGHT HIP 03/22/2015 KONG GREWAL, BABAK Sheppard Ot M25.552 PAIN IN LEFT HIP 05/22/2015 DEANA PERDOMO Ot B35.1 TINEA UNGUIUM 05/22/2015 DEANA PERDOMO Ot L03.032 CELLULITIS OF LEFT TOE 06/07/2015 DEANA PERDOMO Ot G89.29 OTHER CHRONIC PAIN 06/07/2015 DEANA PERDOMO Ot M25.551 PAIN IN RIGHT HIP 06/07/2015 DEANA PERDOMO Ot M25.552 PAIN IN LEFT HIP 06/07/2015 DEANA PERDOMO Ot M25.561 PAIN IN RIGHT KNEE 06/07/2015 DEANA PERDOMO Ot M25.562 PAIN IN LEFT KNEE 06/16/2015 FEDERICA REYES APRN Ot M25.551 PAIN IN RIGHT HIP 06/16/2015 FEDERICA REYES PEDIATRIC UROLOGIST Ot Z96.641 PRESENCE OF RIGHT ARTIFICIAL HIP JOINT 07/07/2015 FEDERICA REYES PEDIATRIC UROLOGIST Ot R10.84 GENERALIZED ABDOMINAL PAIN 07/10/2015 FEDERICA REYES PEDIATRIC UROLOGIST Ot R10.84 GENERALIZED ABDOMINAL PAIN 07/26/2015 Ot 300.00 08/01/2015 FEDERICA REYES PEDIATRIC UROLOGIST Ot R10.84 GENERALIZED ABDOMINAL PAIN 10/26/2015 Ot 300.00 12/27/2015 DEANA PERDOMO Ot R60.0 LOCALIZED EDEMA 12/27/2015 DAENA PERDOMO Ot Z79.899 OTHER FPC (CURRENT) DRUG THERAPY 12/27/2015 DEANA PERDOMO Ot Z91.14 PATIENT'S OTHER NONCOMPLIANCE WITH MEDIC 12/28/2015 DEANA PERDOMO Ot R60.0 LOCALIZED EDEMA 12/28/2015 DEANA PERDOMO Ot Z79.899 OTHER FPC (CURRENT) DRUG THERAPY 12/28/2015 DEANA PERDOMO Ot Z91.14 PATIENT'S OTHER NONCOMPLIANCE WITH MEDIC 12/28/2015 DEE DEE MCLEOD, DEANA L Ot R60.0 LOCALIZED EDEMA 12/28/2015 DEE DEE MCLEOD, DEANA Lundberg Ot Z79.899 OTHER FPC (CURRENT) DRUG THERAPY 12/28/2015 DEANA PERDOMO Ot Z91.14 PATIENT'S OTHER NONCOMPLIANCE WITH MEDIC 12/29/2015 DEE DEE MCLEOD, DEANA L Ot R60.0 LOCALIZED EDEMA 12/29/2015 DEANA PERDOMO Ot Z79.899 OTHER FPC (CURRENT) DRUG THERAPY 12/29/2015 DEANA PERDOMO Ot Z91.14 PATIENT'S OTHER NONCOMPLIANCE WITH MEDIC 01/02/2016 DEE DEE MCLEOD, DEANA L Ot R60.0 LOCALIZED EDEMA 01/02/2016 DEANA PERDOMO Ot Z79.899 OTHER ADJUNCT INSTRUCTOR (CURRENT) DRUG THERAPY 01/02/2016 DEANA PERDOMO Ot Z91.14 PATIENT'S OTHER NONCOMPLIANCE WITH MEDIC 02/25/2016 SANKET DO, BRIGID K Ot N39.0 URINARY TRACT INFECTION, SITE NOT SPECIF 02/26/2016 JIM DO, BOBO Lozano Ot N39.0 URINARY TRACT INFECTION, SITE NOT SPECIF 02/26/2016 BOBO FERNANDEZ DO Ot R10.30 LOWER ABDOMINAL PAIN, UNSPECIFIED 02/26/2016 JIM DOBOBO Ot Z79.899 OTHER ADJUNCT INSTRUCTOR (CURRENT) DRUG THERAPY 02/26/2016 BOBO FERNANDEZ DO Ot Z91.14 PATIENT'S OTHER NONCOMPLIANCE WITH MEDIC 02/28/2016 JIM DO, BOBO Lozano Ot N39.0 URINARY TRACT INFECTION, SITE NOT SPECIF 02/28/2016 JIM DOBOBO Ot R10.30 LOWER ABDOMINAL PAIN, UNSPECIFIED 02/28/2016 JIM DOBOBO Ot Z79.899 OTHER ADJUNCT INSTRUCTOR (CURRENT) DRUG THERAPY 02/28/2016 BOBO FERNANDEZ DO Ot Z91.14 PATIENT'S OTHER NONCOMPLIANCE WITH MEDIC 02/28/2016 JIM CANO, BOBO Lozano Ot N39.0 URINARY TRACT INFECTION, SITE NOT SPECIF 02/28/2016 BOBO FERNANDEZ DO Ot R10.30 LOWER ABDOMINAL PAIN, UNSPECIFIED 02/28/2016 BOBO FERNANDEZ DO Ot Z60.9 PROBLEM RELATED TO SOCIAL ENVIRONMENT, U 02/28/2016 BOBO FERNANDEZ DO Ot Z91.14 PATIENT'S OTHER NONCOMPLIANCE WITH MEDIC 03/03/2016 BOBO FERNANDEZ DO Ot N39.0 URINARY TRACT INFECTION, SITE NOT SPECIF 03/03/2016 BOBO FERNANDEZ DO Ot R10.30 LOWER ABDOMINAL PAIN, UNSPECIFIED 03/03/2016 BOBO FERNANDEZ DO Ot Z79.899 OTHER ADJUNCT INSTRUCTOR (CURRENT) DRUG THERAPY 03/03/2016 BOBO FERNANDEZ DO Ot Z91.14 PATIENT'S OTHER NONCOMPLIANCE WITH MEDIC 03/06/2016 FEDERICA REYES APRN Ot N39.0 URINARY TRACT INFECTION, SITE NOT SPECIF 03/06/2016 FEDERICA REYES PEDIATRIC UROLOGIST Ot R10.30 LOWER ABDOMINAL PAIN, UNSPECIFIED 03/06/2016 FEDERICA REYES PEDIATRIC UROLOGIST Ot Z91.14 PATIENT'S OTHER NONCOMPLIANCE WITH MEDIC 03/08/2016 FEDERICA REYES APRN Ot N39.0 URINARY TRACT INFECTION, SITE NOT SPECIF 03/08/2016 FEDERICA REYES APRN Ot R10.30 LOWER ABDOMINAL PAIN, UNSPECIFIED 03/08/2016 FEDERICA REYES PEDIATRIC UROLOGIST Ot Z91.14 PATIENT'S OTHER NONCOMPLIANCE WITH MEDIC 03/27/2016 FEDERICA REYES PEDIATRIC UROLOGIST Ot N39.0 URINARY TRACT INFECTION, SITE NOT SPECIF 03/27/2016 FEDERICA REYES PEDIATRIC UROLOGIST Ot R10.30 LOWER ABDOMINAL PAIN, UNSPECIFIED 03/27/2016 FEDERICA REYES PEDIATRIC UROLOGIST Ot Z91.14 PATIENT'S OTHER NONCOMPLIANCE WITH MEDIC 04/02/2016 FEDERICA REYES APRN Ot N39.0 URINARY TRACT INFECTION, SITE NOT SPECIF 04/02/2016 FEDERICA REYES PEDIATRIC UROLOGIST Ot R10.30 LOWER ABDOMINAL PAIN, UNSPECIFIED 04/02/2016 FEDERICA REYES PEDIATRIC UROLOGIST Ot Z91.14 PATIENT'S OTHER NONCOMPLIANCE WITH MEDIC 04/06/2016 BOBO FERNANDEZ DO Ot N39.0 URINARY TRACT INFECTION, SITE NOT SPECIF 04/06/2016 BOBO FERNANDEZ DO Ot R10.30 LOWER ABDOMINAL PAIN, UNSPECIFIED 04/06/2016 BOBO FERNANDEZ DO Ot Z79.899 OTHER FPC (CURRENT) DRUG THERAPY 04/06/2016 BOBO FERNANDEZ DO Ot Z91.14 PATIENT'S OTHER NONCOMPLIANCE WITH MEDIC 04/24/2016 JIM DOBOBO Ot N39.0 URINARY TRACT INFECTION, SITE NOT SPECIF 04/24/2016 BOBO FERNANDEZ DO Ot R10.30 LOWER ABDOMINAL PAIN, UNSPECIFIED 04/24/2016 BOBO FERNANDEZ DO Ot Z60.9 PROBLEM RELATED TO SOCIAL ENVIRONMENT, U 04/24/2016 JIM DOBOBO Ot Z91.14 PATIENT'S OTHER NONCOMPLIANCE WITH MEDIC 06/24/2016 BOBO FERNANDEZ DO Ot N39.0 URINARY TRACT INFECTION, SITE NOT SPECIF 06/24/2016 JIMBOBO MALDONADO DO Ot R10.30 LOWER ABDOMINAL PAIN, UNSPECIFIED 06/24/2016 BOBO FERNANDEZ DO Ot Z60.9 PROBLEM RELATED TO SOCIAL ENVIRONMENT, U 06/24/2016 BOBO FERNANDEZ DO Ot Z91.14 PATIENT'S OTHER NONCOMPLIANCE WITH MEDIC 07/25/2016 Ot 300.00 Procedures Code Description Performed By Performed On JOINT INJECTION- INTERMEDIATE JOINT 02/07/2012 JOINT INJECTION- LARGE JOINT (SPECIFY MEDCIN DESCRIPTION) 03/26/2012 86652 UA W/ CULTURE IF INDICATED 04/21/2012 97159 UA W/ CULTURE IF INDICATED 04/21/2012 16964 TRIM NAIL(S) 90047 WART DESTRUCT 1-14 (CRYO) 11/03/2012 28231 UA W/ CULTURE IF INDICATED 11/30/2012 53339 CULTURE URINE 10/2012 G0008 FLU ADMINISTRATION (MEDICARE ONLY) 12/28/2012 72471 ROUTINE VENIPUNCTURE 06/22/2013 80574 ECHO 2D 2013 [id number] GFR CALC (RESULT ONLY) 06/23/2013 99002 CMP 06/23/2013 97094 CBC 06/23/2013 95909 TSH 06/23/2013 38333 BNP 06/24/2013 58691 CULTURE URINE 25998 HEMOGLOBIN (IN-HOUSE) 07/26/2013 07028 MRI BRAIN W/CONTRAST 12/17/2013 NEUROLOGI HALLEY GOMEZ 12/17/2013 61547 UA W/ CULTURE IF INDICATED 01/14/2014 21367 CULTURE URINE 29032 ROUTINE VENIPUNCTURE 02/15/2014 28187 CBC 02/15/2014 05907 CULTURE URINE AllergyRigoberto Michael 03/15/2014 38456 OXIMETRY 2014 71950 UA W/ CULTURE IF INDICATED 06/14/2014 Encounters ACCT No. Visit Date/Time Discharge Status Pt. Type Provider Facility Loc./Unit Complaint [id number] 06/14/2014 14:20:00 06/14/2014 23: 59:59 CLS Outpatient BABAK TRIANA MD [id number] 05/02/2014 16:45:00 05/02/2014 23: 59:59 CLS Outpatient ARGELIA ATKINSON DO [id number] 03/29/2014 13:26:00 03/29/2014 23: 59:59 CLS Outpatient ARGELIA ATKINSON DO [id number] 03/15/2014 15:40:00 03/15/2014 23: 59:59 CLS Outpatient ALANA GOLD APRN [id number] 03/15/2014 15:40:00 03/15/2014 23: 59:59 CLS Outpatient ARGELIA TAKINSON DO [id number] 02/15/2014 14:55:00 02/15/2014 23: 59:59 CLS Outpatient BABAK TRIANA MD [id number] 01/14/2014 14:53:00 01/14/2014 23: 59:59 CLS Outpatient BABAK TRIANA MD [id number] 01/14/2014 14:53:00 01/14/2014 23: 59:59 CLS Outpatient BABAK TRIANA MD [id number] 12/17/2013 14:39:00 12/17/2013 23: 59:59 CLS Outpatient BABAK TRIANA MD [id number] 10/20/2013 14:48:00 10/20/2013 23: 59:59 CLS Outpatient BABAK TRIANA MD [id number] 07/26/2013 15:32:00 07/26/2013 23: 59:59 CLS Outpatient ARGELIA ATKINSON DO [id number] 07/26/2013 15:32:00 07/26/2013 23: 59:59 CLS Outpatient ARGELIA ATKINSON DO [id number] 07/20/2013 14:16:00 07/20/2013 23: 59:59 CLS Outpatient ARGELIA ATKINSON DO [id number] 06/22/2013 16:12:00 06/22/2013 23: 59:59 CLS Outpatient ATKINSON DOARGELIA [id number] 04/19/2013 14:49:00 04/19/2013 23: 59:59 CLS Outpatient ATKINSON DOARGELIA [id number] 12/28/2012 17:03:00 12/28/2012 23: 59:59 CLS Outpatient ATKINSON DOARGELIA [id number] 11/30/2012 13:31:00 11/30/2012 23: 59:59 CLS Outpatient ATKINSON DOARGELIA [id number] 11/30/2012 13:31:00 11/30/2012 23: 59:59 CLS Outpatient ATKINSON DOARGELIA [id number] 10/21/2012 15:22:00 10/21/2012 23: 59:59 CLS Outpatient ASIFALANA PINEDO APRN [id number] 04/21/2012 17:23:00 04/21/2012 23: 59:59 CLS Outpatient ATKINSON DOARGELIA [id number] 04/08/2012 14:46:00 04/08/2012 23: 59:59 CLS Outpatient ATKINSON DOARGELIA [id number] 03/26/2012 15:51:00 03/26/2012 23: 59:59 CLS Outpatient [id number] 01/23/2012 15:27:00 01/23/2012 23: 59:59 CLS Outpatient ATKINSON DOARGELIA [id number] 12/09/2011 16:14:00 12/09/2011 23: 59:59 CLS Outpatient ATKINSON DOARGELIA [id number] 11/03/2012 14:09:00 Document Registration [id number] 10/21/2012 15:22:00 Document Registration [id number] 09/16/2012 15:17:00 Document Registration [id number] 08/17/2012 15:17:00 Document Registration [id number] 07/28/2012 15:48:00 Document Registration [id number] 07/13/2012 15:52:00 Document Registration [id number] 07/09/2012 15:59:00 Document Registration [id number] 06/03/2012 15:46:00 Document Registration
--- NOTE | 2016-08-20 17:16 | ED EENT ---
History of Present Illness General Chief Complaint: Oral/Throat Problems Stated Complaint: DRY MOUTH Nursing Triage Note: PT ARRIVED PER EMS CO OF DRY MOUTH THAT SHE COULD NOT GET RID OF Source: patient Exam Limitations: no limitations History of Present Illness Time seen by provider: 17:00 Initial Comments Here with report of dry mouth that she cannot get rid of all day long. She states that she is used mouth drops and that has not helped. She thinks that she has cotton in her mouth. No other concerns. Timing/Duration: gradual Severity: mild Location: mouth Associated Symptoms: other (dry mouth) Allergies and Home Medications Allergies Coded Allergies: No Known Drug Allergies (Unverified , 04/26/09) Home Medications Buspirone Hcl 5 Mg Tablet, 5 MG PO BID, (Reported) Clonazepam 0.5 Mg Tablet, 1 EACH PO BID, (Reported) Duloxetine Hcl 60 Mg Capsule.dr, 60 MG PO DAILY, (Reported) Famotidine 20 Mg Tablet, 20 MG PO BID, (Reported) Ferrous Sulfate 325 Mg Tablet, 325 MG PO HS, (Reported) Furosemide 40 Mg Tablet, 20 MG PO DAILY for 30 Days We will cut the 40mg tabs in half while you still have this prescription Prescribed by: WENDY DUNBAR on 04/12/14 1433 Furosemide 20 Mg Tablet, 20 MG PO UD, #30 Ref 0 1 po qAM Prescribed by: DEANA FUNEZ on 12/27/15 1854 Ipratropium/Albuterol Sulfate 3 Ml Ampul.neb, 3 ML IH, (Reported) Lorazepam 1 Mg Tab, 1 EACH PO DAILY PRN for ANXIETY, (Reported) Meloxicam 7.5 Mg Tablet, 1 EACH PO DAILY, (Reported) Prednisone 20 Mg Tab, 20 MG PO BID, #10 Ref 0 Prescribed by: DEANA FUNEZ on 06/07/15 1452 Trazodone Hcl 100 Mg Tablet, 100 MG PO HS, (Reported) Review of Systems Constitutional: see HPI, No chills, No fever Mouth: see HPI Throat: no symptoms reported Respiratory: no symptoms reported Cardiovascular: no symptoms reported Neurological: Anxiety, Emotional Problems Past Rzznfnf-Emvard-Ouvijc Hx Patient Social History Alcohol Use: Denies Use Recreational Drug Use: No Smoking Status: Never a Smoker 2nd Hand Smoke Exposure: No Recent Foreign Travel: No Contact w/Someone Who Travel: No Recent Infectious Disease Expo: No Recent Hopitalizations: No Immunizations Up To Date Tetanus Booster (TDap): Unknown Date of Influenza Vaccine: Nov 24, 2014 Seasonal Allergies Seasonal Allergies: No Surgeries HX Surgeries: Yes Surgeries: Appendectomy, Orthopedic Respiratory Hx Respiratory Disorders: No Cardiovascular Hx Cardiac Disorders: Yes (chronic pedal edema) Cardiac Disorders: Chronic Edema/Swelling Neurological Hx Neurological Disorders: Yes (dementia) Neurological Disorders: Dementia Reproductive System Hx Reproductive Disorders: No Sexually Transmitted Disease: No Genitourinary Hx Genitourinary Disorders: Yes Genitourinary Disorders: Bladder Infection Gastrointestinal Hx Gastrointestinal Disorders: Yes Gastrointestinal Disorders: Diverticulosis Musculoskeletal Hx Musculoskeletal Disorders: Yes (CHRONIC GENERALIZED PAIN, ESPECIALLY HIPS-- NARCOTIC DEPENDENCY AND ABUSE. ) Musculoskeletal Disorders: Arthritis Endocrine Hx Endocrine Disorders: No HEENT HX ENT Disorders: No Cancer Hx Cancer: No (per pt "brain tumor" unknown ) Psychosocial Hx Psychiatric Problems: Yes Behavioral Health Disorders: Anxiety, Depression Integumentary HX Skin/Integumentary Disorder: No Blood Transfusions Hx Blood Disorders: No Adverse Reaction to a Blood Tr: No Reviewed Nursing Assessment Reviewed/Agree w Nursing PMH: Yes Family Medical History Significant Family History: No Pertinent Family Hx Family Medial History: Patient reports no known family medical history. Physical Exam Vital Signs Vital Sign - Last 12Hours 08/20/16 16:55 Temp 97.5 Pulse 102 Resp 20 B/P (MAP) 179/84 Pulse Ox 96 General Appearance: WD/WN, mild distress (anxiety) Mouth/Throat: normal mouth inspection, pharynx normal, other (mucous membranes moist) Neck: full range of motion, supple Cardiovascular: regular rate, rhythm, no murmur Respiratory: lungs clear, normal breath sounds Gastrointestinal: non tender, soft Neurologic/Psychiatric: alert, oriented x 3 Skin: normal color, warm/dry Progress/Results/Core Measures Results/Orders Vital Signs/I&O Vital Sign - Last 12Hours 08/20/16 16:55 Temp 97.5 Pulse 102 Resp 20 B/P (MAP) 179/84 Pulse Ox 96 Blood Pressure Mean: 115 Progress Note : Progress Note Seen and evaluated. I'll swabs given. Patient able to take by mouth fluids without difficulty. Discharged home with return precautions. Patient verbalize understanding instructions and agreement with plan. Departure Impression Impression: Primary Impression: Dry mouth Disposition: 01 HOME, SELF-CARE Condition: Stable Departure-Patient Inst. Decision time for Depature: 17:15 Referrals: BABAK TRIANA MD (PCP/Family) Primary Care Physician Patient Instructions: Anxiety, Adult (DC) Add. Discharge Instructions: All discharge instructions reviewed with patient and/or family. Voiced understanding. Continue home medications as directed. Follow-up with her doctor tomorrow. Return for worse pain, fever, vomiting, weakness, breathing problems or other concerns as needed. You may use the mouth swabs as needed. You may use lemon drops or similar to help moisten your mouth. CESAR KNIGHT MD Aug 20, 2016 17:16
[2016-08-20 17:23] VITALS: BP 179/84
== END 2016-08-20 17:23 | disposition home or self-care (01) ==
LOC: EDUNIT# 16:55 → ER 16:56
DX: R68.2 Dry mouth, unspecified (principal); F41.9 Anxiety disorder, unspecified; F32.9 Major depressive disorder, single episode, unspecified; F03.90 Unspecified dementia, unspecified severity, without behavioral disturbance, psychotic disturbance, mood disturbance, and anxiety
CPT/HCPCS: 99283

== ENCOUNTER 2017-10-26 13:25 | Emergency (ER) | payer MEDICARE, MEDICAID ==
[~2017-10-26] VITALS: Ht 160 cm; Wt 68.2 kg
--- OUTSIDE RECORDS SUMMARY | 2017-10-26 13:32 | XMS REPORT ---
Author Author [facility]ON[facility] Address [address] [place] [address] Care Team Providers Care Science Editor Name Role Phone KONGKATHLEEN KIMY Unavailable PROBLEMS Type Condition ICD9-CM Code DLF68-PO Code Onset Dates Condition Status SNOMED Code Problem Generalized anxiety disorder F41.1 Active 412051215 Problem Seasonal allergic rhinitis due to other allergic trigger J30.89 Active 611266438 Problem Anxiety disorder, unspecified F41.9 Active 694577653 Problem 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 Active 162086691 Problem Meningioma D32.9 Active 033802234 Problem Generalized osteoarthritis M15.9 Active 586126446 Problem Dementia without behavioral disturbance, unspecified dementia type F03.90 Active 13059769 Problem Debility R53.81 Active 93351859 Problem At risk for falls Z91.81 Active 517423994 Problem Other chronic pain G89.29 Active 20043609 Problem Panic attacks F41.0 Active 990479935 Problem Acute drug withdrawal syndrome without complication F19.230 Active 313040516 Problem Anxiety F41.9 Active 21272169 ALLERGIES No Known Allergies ENCOUNTERS Encounter Location Date Diagnosis [facility] [id number], [place] [address] Nov, [facility] [id number] [place] [address] 17709- 4164 Sep, Dementia without behavioral disturbance, unspecified dementia type F03.90 [facility] [id number] [place] [address] 05380- 5158 Aug, [facility] [id number] [place] [address] 50082- 3928 Aug, Dementia without behavioral disturbance, unspecified dementia type F03.90 [facility] [id number] [place] [address] 01432- 5147 Aug, Dementia without behavioral disturbance, unspecified dementia type F03.90 and Anxiety F41.9 [facility] [id number] [place] [address] 49151- 2118 Jul, Dementia without behavioral disturbance, unspecified dementia type F03.90 [facility] [id number] [place] [address] 55591- 2541 Jul, 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 ; Generalized osteoarthritis M15.9 ; Other chronic pain G89.29 ; At risk for falls Z91.81 and Debility R53.81 [facility] [id number] [place] [address] 72145- 1268 Jul, [facility] [id number] [place] [address] 23560- 1044 June, Dementia without behavioral disturbance, unspecified dementia type F03.90 [facility] [id number] [place] [address] 21964- 0497 June, [facility] [id number] [place] [address] 04231- 6256 June, [facility] [id number] [place] [address] 18557- 2453 June, [facility] [id number] [place] [address] 71756- 4485 June, Dementia without behavioral disturbance, unspecified dementia type F03.90 and Anxiety F41.9 [facility] [address], [place] [address] 0825 May, [facility] [id number] [place] [address] 86111- 3119 May, [facility] [address], [place] [address] May, Anxiety F41.9 ; Acute drug withdrawal syndrome without complication F19.230 and Abdominal pain, unspecified abdominal location R10.9 [facility] [id number] [place] [address] 66065- 4766 May, Panic attacks F41.0 [facility] [id number] [place] [address] 85580- 0629 May, Other chronic pain G89.29 and Generalized anxiety disorder F41.1 [facility] [id number] [place] [address] 29519- 9967 Apr, Housing problems Z59.9 and Panic attacks F41.0 [facility] [id number] [place] [address] 61829- 4711 Mar, Panic attacks F41.0 [facility] [id number] [place] [address] 26528- 9153 Feb, [facility] [id number] [place] [address] 76385- 0044 Feb, Panic attacks F41.0 [facility] [id number] [place] [address] 31041- 7960 Feb, Pain in right knee M25.561 ; Pain in left knee M25.562 ; Other chronic pain G89.29 ; Housing problems Z59.9 ; Dementia without behavioral disturbance, unspecified dementia type F03.90 ; Generalized anxiety disorder F41.1 and Advance directive declined by patient Z78.9 [facility] [id number] [place] [address] 24726- 5939 Jan, Panic attacks F41.0 [facility] [id number] [place] [address] 86456- 7836 Jan, Panic attacks F41.0 [facility] [id number] [place] [address] 79685- 2755 Dec, Panic attacks F41.0 [facility] [id number] [place] [address] 91140 -9878 Nov, Allergic contact dermatitis due to cosmetics L23.2 [facility] [id number] [place] [address] 00644- 9170 Nov, Panic attacks F41.0 [facility] [address] 87963- 6828 Oct, Panic attacks F41.0 [facility] [id number] [place] [address] 89510- 5912 Sep, Panic attacks F41.0 ; Insect bite, initial encounter W57.XXXA and 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 [facility] [id number] [place] [address] 90369- 9008 Sep, [facility] [address] 21406- 6446 Aug, Generalized anxiety disorder F41.1 [facility] [id number] [place] [address] 85793- 9572 Jul, [facility] [id number] [place] [address] 32716 -4619 June, Seasonal allergic rhinitis due to other allergic trigger J30.89 [facility] [address] 91859- 0879 June, [facility] [id number] [place] [address] 48867- 7531 June, [facility] [id number] [place] [address] 06258 -2303 June, Dysuria R30.0 and RLQ abdominal pain R10.31 [facility] [id number] [place] [address] 24858- 5091 May, Generalized anxiety disorder F41.1 ; Generalized osteoarthritis M15.9 and Dementia without behavioral disturbance, unspecified dementia type F03.90 [facility] [id number] [place] [address] 82656- 5077 May, [facility] [address] 10006- 8766 May, [facility] [address] [place] [address]- 3762 May, [facility] [address], [place] [address] 2503 Apr, [facility] [address] [place] [address]- 7212 Apr, Generalized anxiety disorder F41.1 [facility] [address] [place] [address]- 3678 Apr, [facility] [id number] [place] [address], [place] [address]- 0530 Apr, [facility] [address] [place] [address]- 2706 Apr, [facility] [id number] [place] [address] 78110- 6940 Apr, Generalized anxiety disorder F41.1 [facility] [address] [place] [address]- 8837 Mar, [facility] [address], [place] [address]- 2846 Mar, [facility] [address], [place] [address]- 7942 Mar, [facility] [address], [place] [address]- 5770 Mar, [facility] [place] [facility] [id number] 0949 Mar, Generalized anxiety disorder F41.1 [facility] [address] 2282 Feb, Anxiety disorder, unspecified F41.9 [facility] [address] 4544 Feb, [facility] [address], [place] [address]- 5189 Feb, [facility] [id number] [place] [address] 47887- 1127 Feb, [facility] [id number] [place] [address] 37963 -1436 12 Feb, 2016 Urinary frequency R35.0 and Acute cystitis without hematuria N30.00 [facility] [id number] [place] [address] 15804- 1826 Feb, [facility] [id number] [place] [address] 72945- 3771 Jan, [facility] [id number] [place] [address] 89237- 4631 Jan, [facility] [id number] [place] [address] 26548- 6847 Dec, [facility] [id number] [place] [address] 42301- 3879 14 Dec, 2015 [facility] [id number] [place] [address] 89564- 7937 Dec, Edema, unspecified type R60.9 [facility] [id number] [place] [address] 27771- 1784 Dec, [facility] [id number] [place] [address] 03384- 8389 Dec, [facility] [id number] [place] [address] 59369- 3483 30 Oct, 2015 Generalized anxiety disorder F41.1 [facility] [id number] [place] [address] 56473- 4434 20 Oct, 2015 [facility] [id number] [place] [address] 00128- 6311 16 Oct, 2015 [facility] [id number] [place] [address] 18743- 9564 Oct, [facility] [address], [place] [address]- 9477 Oct, [facility] [id number], [place] [address]- 8675 Aug, Anxiety disorder, unspecified F41.9 [facility] [address], [place] [address]- 5644 Jul, Anxiety disorder, unspecified F41.9 [facility] [address], [place] [address]- 0587 Jul, Generalized anxiety disorder F41.1 [facility] [id number] [place] [address] 93006- 4461 Jul, [facility] [id number] [place] [address] 16918- 3155 June, [facility] [id number] [place] [address] 10416- 3770 June, [facility] [address], [place] [address]- 8848 June, [facility] [id number] [place] [address] 09205- 5395 June, [facility] [address], [place] [address]- 2959 May, [facility] [address], [place] [address] May, Dementia without behavioral disturbance, unspecified dementia type F03.90 and Generalized osteoarthritis M15.9 [facility] [id number] [place] [address] 19241- 4461 May, Generalized osteoarthritis M15.9 and 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 [facility] [address], [place] [address]- 7042 Apr, [facility] [id number] [place] [address] 16575- 5238 Apr, [facility] [address] 26603- 4563 Apr, [facility] [address] 87124- 7172 Mar, [facility] [address] 71379- 1681 Mar, [facility] [address] 75803- 5693 Mar, Generalized anxiety disorder F41.1 [facility] [facility] [address] 88274- 1562 Feb, Other infective acute otitis externa of right ear H60.391 [facility] [address] 28056- 9729 Dec, Dysuria R30.0 ; Generalized osteoarthritis M15.9 and Gastroesophageal reflux disease, esophagitis presence not specified K21.9 [facility] [address] 20751- 9527 Dec, [facility] [facility] [address] 53846- 6988 Dec, Generalized anxiety disorder F41.1 ; Encounter for immunization Z23 and Dementia F03.90 [facility] [facility] [address] 40510- 1619 Nov, [facility] [address] 98366- 6032 Oct, [facility] [address] 09406- 4002 Oct, 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 ; Chronic pain 338.29 ; Anxiety 300.00 and Dementia 294.20 [facility] [address] 02685- 6534 Oct, [facility] [facility] [address], [place] [address]- 9321 Aug, Generalized anxiety disorder 300.02 and Dementia 294.20 [facility] [id number] [place] [address] 75996- 5316 Aug, [facility] [id number] [place] [address] 74152- 9804 Aug, Anxiety 300.00 and Chronic pain 338.29 [facility] [id number] [place] [address] 69161- 6302 Jul, [facility] [id number] [place] [address] 34692- 3146 Jul, [facility] [id number] [place] [address] 88812- 3075 June, [facility] [id number] [place] [address] 72608- 9603 June, Anxiety, generalized 300.02 ; Dementia 294.20 and No condition on Soso II V71.09 [facility] [id number], [place] [address]- 3441 May, [facility] [id number] [place] [address] 27277- 5859 May, [facility] [address], [place] [address]- 9898 Apr, [facility] [address], [place] [address]- 6025 Apr, [facility] [address], [place] [address]- 1016 Apr, [facility] [id number] [place] [address] 56027- 5711 Apr, [facility] [address], [place] [address]- 3973 Apr, [facility] [id number] [place] [address]- 0078 Apr, 2014 [facility] [place] [facility] [address] [id number] [place] 6375 Apr, 2014 [facility] [place] [facility] [address] [id number] [place] 1333 Apr, 2014 [facility] [place] [facility] [address] [id number] [place] [address]- 9322 Apr, 2014 [facility] [place] [facility] [address] [id number] [place] [address]- 9528 Apr, 2014 [facility] [place] [facility] [address] [id number] [place] [address]- 7564 Apr, 2014 [facility] [place] [facility] [address] [facility] [id number] [place] [address]- 2660 Apr, 2014 [facility] [place] [facility] [address] [facility] [id number] [place] [address]- 5026 Apr, 2014 [facility] [place] [facility] [address] [facility] [id number] [place] [address]- 1671 Apr, [facility] [place] [facility] [address] [facility] [id number] [place] [address]- 9185 Apr, 2014 [facility] [place] [facility] [address] [facility] [id number] [place] [address]- 6985 Apr, [facility] [place] [facility] [address] [facility] [id number] [place] [address]- 7622 Mar, 2014 [facility] [place] [facility] [address] [facility] [id number] [place] [address]- 0070 Mar, 2014 [facility] [place] [facility] [address] [id number] [place] [address]- 9008 Mar, 2014 [facility] [place] [facility] [address] [facility] [id number] [place] [address]- 4489 Mar, 2014 [facility] [place] [facility] [address] [facility] [id number] [place] 4014 Mar, 2014 [facility] [place] [facility] [address] [id number] [place] [address]- 3380 Mar, 2014 [facility] [place] [facility] [address] [id number] [place] [address]- 2993 23 Mar, 2014 [facility] [place] [facility] [address] [facility] [id number] [place] [address]- 6496 23 Mar, 2014 [facility] [place] [facility] [address] [facility] [id number] [place] [address]- 0496 20 Mar, 2014 [facility] [place] [facility] [address] [facility] [id number] [place] [address]- 5621 20 Mar, 2014 [facility] [place] [facility] [address] [facility] [id number] [place] [address]- 9568 18 Mar, 2014 [facility] [place] [facility] [address] [facility] [id number] [place] [address]- 8180 18 Mar, 2014 [facility] [place] [facility] [address] [facility] [id number] [place] [address]- 3112 17 Mar, 2014 [facility] [place] [facility] [address] [facility] [id number] [place] [address]- 9177 17 Mar, 2014 [facility] [place] [facility] [address] [facility] [id number] [place] [address]- 7693 17 Mar, 2014 [facility] [place] [facility] [address] [facility] [id number] [place] [address]- 6111 17 Mar, 2014 [facility] [place] [facility] [address] [facility] [id number], [place] [address]- 8731 13 Mar, 2014 [facility] [place] [facility] [address] [facility] [id number] [place] [address]- 6692 13 Mar, 2014 [facility] [place] [facility] [address] [facility] [id number] [place] [address]- 1494 13 Mar, 2014 [facility] [place] [facility] [address] [facility] [id number], [place] [address]- 3890 13 Mar, 2014 [facility] [place] [facility] [address] [id number] [place] [address]- 2154 Mar, [facility] [place] [facility] [address] [id number] [place] [address]- 7596 Mar, [facility] [place] [facility] [address] [id number] [place] [address]- 8236 Mar, [facility] [place] [facility] [address] [id number] [place] [address]- 7502 Mar, [facility] [place] [facility] [address] [id number] [place] [address]- 7176 Mar, [facility] [place] [facility] [address] [id number] [place] [address]- 1611 Mar, [facility] [place] [facility] [address] [id number] [place] [address]- 8798 Feb, [facility] [place] [facility] [address] [id number] [place] [address]- 0568 Feb, [facility] [place] [facility] [address] [id number] [place] [address]- 0060 Feb, [facility] [place] [facility] [address] [id number] [place] [address]- 8381 Feb, [facility] [place] [facility] [address] [id number] [place] [address]- 5206 Feb, [facility] [place] [facility] [address] [id number] [place] [address]- 1797 Feb, [facility] [place] [facility] [address] [id number] [place] [address]- 4433 Feb, [facility] [place] [facility] [address] [id number] [place] [address]- 6121 Feb, [facility] [place] [facility] [address] [id number] [place] [address]- 5114 Feb, [facility] [place] [facility] [address] [id number] [place] [address]- 0624 Feb, [facility] [place] [facility] [address] [id number] [place] [address]- 6479 Feb, [facility] [place] [facility] [address] [id number] [place] [address]- 1918 Feb, [facility] [place] [facility] [address] [id number] [place] [address]- 5290 Feb, [facility] [place] [facility] [address] [id number] [place] [address]- 0566 Feb, [facility] [place] [facility] [address] [id number] [place] [address]- 0273 Feb, [facility] [place] [facility] [address] [id number] [place] [address]- 1465 Jan, [facility] [place] [facility] [address] [id number] [place] [address]- 5370 Jan, [facility] [place] [facility] [address] [id number] [place] [address]- 8294 Jan, [facility] [place] [facility] [address] [id number] [place] [address] Jan, [facility] [place] [facility] [address] [facility] [id number] [place] [address] Jan, [facility] [place] [facility] [address] [id number] [place] [address] Jan, [facility] [place] [facility] [address] [id number] [place] [address] Jan, [facility] [place] [facility] [address] [id number] [place] [address] Jan, [facility] [place] [facility] [address] [id number] [place] [address] Jan, [facility] [place] [facility] [address] [id number] [place] [address] Jan, [facility] [place] [facility] [address] [id number] [place] [address] Jan, [facility] [place] [facility] [address] [id number] [place] [address] Jan, [facility] [place] [facility] [address] [id number] [place] [address] Jan, [facility] [place] [facility] [address] [id number] [place] [address] Jan, [facility] [place] [facility] [address] [id number] [place] [address] Jan, [facility] [place] [facility] [address] [id number] [place] [address] Jan, [facility] [place] [facility] [address] [id number] [place] [id number] Jan, [facility] [place] [facility] [address] [id number] [place] [address] Jan, [facility] [place] [facility] [address] [id number] [place] [address]- [address] Jan, [facility] [place] [facility] [address] [id number] [place] [address] Jan, [facility] [place] [facility] [address] [id number] [place] [address]- [address] Dec, [facility] [place] [facility] [address] [id number] [place] [address]- [address] Dec, [facility] [place] [facility] [address] [id number] [place] [address] Dec, [facility] [place] [facility] [address] [id number] [place] [address]- [address] Dec, [facility] [place] [facility] [address] [id number] [place] [address] Dec, [facility] [place] [facility] [address] [id number] [place] [address] Dec, [facility] [place] [facility] [address] [id number] [place] [address] Dec, [facility] [place] [facility] [address] [id number] [place] [address] Nov, [facility] [place] [facility] [address] [id number] [place] [address] Nov, [facility] [place] [facility] [address] [id number] [place] [address] Nov, [facility] [place] [facility] [address] [id number] [place] [address]- [address] Nov, [facility] [place] [facility] [address] [id number] [place] [address] Nov, [facility] [place] [facility] [address] [id number] [place] [address] Nov, [facility] [place] [facility] [address] [id number], [place] [address] Nov, [facility] [place] [facility] [address] [id number] [place] [address] Nov, [facility] [place] [facility] [address] [id number], [place] [address] Nov, [facility] [place] [facility] [address] [id number], [place] [address] Nov, [facility] [place] [facility] [address] [id number], [place] [address] 29 Oct, 2013 [facility] [place] [facility] [address] [id number] [place] [address] 29 Oct, 2013 [facility] [place] [facility] [address] [id number], [place] [address] 15 Oct, 2013 [facility] [place] [facility] [address] [id number], [place] [address] 15 Oct, 2013 [facility] [place] [facility] [address] [id number] [place] [address] 15 Oct, 2013 [facility] [place] [facility] [address] [id number] [place] [place] [address] 15 Oct, 2013 [facility] [place] [facility] [address] [id number] [place] [address] 2546 10 Oct, 2013 [facility] [place] [facility] [address] [id number] [place] [address] 8338 10 Oct, 2013 [facility] [place] [facility] [address] [id number] [place] [address]- 4877 02 Oct, 2013 [facility] [place] [facility] [address] [id number] [place] [address]- 5661 Oct, [facility] [place] [facility] [address] [id number] [place] [address]- 9068 Sep, [facility] [place] [facility] [address] [id number] [place] [address]- 5623 Sep, [facility] [place] [facility] [address] [id number] [place] [address]- 8894 Sep, [facility] [place] [facility] [address] [id number] [place] [address]- 5960 Sep, [facility] [place] [facility] [address] [id number] [place] [address]- 7600 Sep, [facility] [place] [facility] [address] [id number] [place] [address]- 0231 Sep, [facility] [place] [facility] [address] [id number] [place] [address]- 2541 Sep, [facility] [place] [facility] [address] [id number] [place] [address]- 0296 Sep, [facility] [place] [facility] [address] [id number] [place] [address]- 9469 Sep, [facility] [place] [facility] [address] [id number] [place] [address]- 2910 Sep, [facility] [place] [facility] [address] [id number] [place] [address]- 2168 Aug, [facility] [place] [facility] [address] [id number] [place] [address]- 7336 Aug, [facility] [place] [facility] [address] [id number] [place] [address]- 5661 Aug, [facility] [place] [facility] [address] [id number] [place] [address]- 2602 Aug, [facility] [place] [facility] [address] [id number] [place] [address]- 6555 Aug, [facility] [place] [facility] [address] [id number] [place] [address]- 3822 Aug, [facility] [place] [facility] [address] [id number] [place] [address]- 2572 Aug, [facility] [place] [facility] [address] [id number] [place] [address]- 0181 Aug, [facility] [place] [facility] [address] [id number] [place] [address]- 7649 Aug, [facility] [place] [facility] [address] [id number] [place] [address]- 3197 Aug, [facility] [place] [facility] [address] [id number] [place] [address]- 1606 Aug, [facility] [place] [facility] [address] [id number] [place] [address]- 7783 Aug, [facility] [place] [facility] [address] [id number] [place] [address]- 6873 Jul, [facility] [place] [facility] [address] [id number] [place] [address]- 4546 Jul, [facility] [place] [facility] [address] [id number] [place] [address]- 0485 Jul, [facility] [place] [facility] [address] [id number] [place] [address]- 8826 Jul, [facility] [place] [facility] [address] [id number] [place] [address]- 6081 Jul, [facility] [place] [facility] [address] [id number] [place] [address]- 0374 Jul, [facility] [place] [facility] [address] [id number] [place] [address]- 5770 17 Jul, 2013 [facility] [place] [facility] [address] [id number] [place] [address]- 1211 16 Jul, 2013 [facility] [place] [facility] [address] [id number] [place] [address]- 6163 16 Jul, 2013 [facility] [place] [facility] [address] [id number] [place] [address]- 0905 Jul, [facility] [place] [facility] [address] [id number] [place] [address]- 3981 Jul, [facility] [place] [facility] [address] [id number] [place] [address]- 5230 Jul, [facility] [place] [facility] [address] [id number] [place] [address]- 7334 Jul, [facility] [place] [facility] [address] [id number] [place] [address]- 9136 Jul, [facility] [place] [facility] [address] [id number] [place] [address]- 6858 Jul, [facility] [place] [facility] [address] [id number] [place] [address]- 4764 Jul, [facility] [place] [facility] [address] [id number] [place] [address]- 7622 Jul, [facility] [place] [facility] [address] [id number] [place] [address]- 1270 June, [facility] [place] [facility] [address] [id number] [place] [address]- 3957 June, [facility] [place] [facility] [address] [id number] [place] [address]- 3975 June, [facility] [address] [id number] [place] [address]- 8286 June, [facility] [address] [id number] [place] [address]- 9348 June, [facility] [address] [id number] [place] [address]- 6930 June, [facility] [address] [id number] [place] [address]- 0482 June, [facility] [address] [id number] [place] [address]- 9504 June, [facility] [address] [id number] [place] [address]- 7948 June, [facility] [address] [id number] [place] [address]- 9599 June, [facility] [address] [id number] [place] [address]- 5591 June, [facility] [address] [id number] [place] [address]- 4548 June, [facility] [address] [id number] [place] [address]- 1951 June, [facility] [address] [id number] [place] [address]- 1044 June, [facility] [address] [id number] [place] [address]- 6151 June, [facility] [place] [facility] [address] [id number] [place] [address]- 1420 June, [facility] [place] [facility] [address] [id number] [place] [address]- 1344 June, [facility] [address] [id number] [place] [address]- 2522 June, [facility] [address] [id number] [place] [address]- 7787 June, [facility] [place] [facility] [address] [id number] [place] [address]- 8069 June, [facility] [place] [facility] [address] [id number] [place] [address]- 7507 June, [facility] [place] [facility] [address] [id number] [place] [address]- 0367 June, [facility] [place] [facility] [address] [id number] [place] [address]- 4609 June, [facility] [place] [facility] [address] [id number] [place] [address]- 1348 June, [facility] [place] [facility] [address] [id number] [place] [address]- 2845 June, [facility] [place] [facility] [address] [id number] [place] [address]- 9877 June, [facility] [place] [facility] [address] [id number] [place] [address]- 7441 June, [facility] [place] [facility] [address] [id number] [place] [address]- 6422 June, [facility] [place] [facility] [address] [id number] [place] [address]- 3260 June, [facility] [place] [facility] [address] [id number] [place] [address]- 8382 June, [facility] [place] [facility] [address] [id number] [place] [address]- 5463 June, [facility] [place] [facility] [address] [id number] [place] 4214 June, [facility] [place] [facility] [address] [id number] [place] [address]- 0927 May, [facility] [place] [facility] [address] [id number] [place] [address]- 1116 May, [facility] [place] [facility] [address] [id number] [place] [address]- 2001 May, [facility] [place] [facility] [address] [id number] [place] [address]- 3114 May, [facility] [place] [facility] [address] [id number] [place] [address]- 7558 May, [facility] [place] [facility] [address] [id number] [place] [address]- 5992 May, [facility] [place] [facility] [address] [id number] [place] [address]- 6799 May, [facility] [place] [facility] [address] [id number] [place] [address]- 9648 May, [facility] [place] [facility] [address] [id number] [place] [address]- 9979 May, [facility] [place] [facility] [address] [id number] [place] [address]- 4644 May, [facility] [place] [facility] [address] [id number] [place] [address]- 5706 May, [facility] [place] [facility] [address] [id number] [place] [address]- 6341 May, [facility] [place] [facility] [address] [id number] [place] [address]- 1104 May, [facility] [place] [facility] [address] [id number] [place] [address]- 2537 May, [facility] [place] [facility] [address] [id number] [place] [address]- 7029 May, [facility] [place] [facility] [address] [id number] [place] [address]- 4310 Apr, [facility] [place] [facility] [address] [id number] [place] [address]- 7973 Apr, [facility] [place] [facility] [address] [id number] [place] [address]- 5469 Apr, [facility] [place] [facility] [address] [id number] [place] [address]- 4426 Apr, [facility] [place] [facility] [address] [id number] [place] [address]- 6956 Apr, [facility] [place] [facility] [address] [id number] [place] [address]- 6386 Apr, [facility] [place] [facility] [address] [id number] [place] [address]- 5750 Mar, [facility] [place] [facility] [address] [id number] [place] [address]- 7426 Mar, [facility] [place] [facility] [address] [facility] [id number] [place] [address]- 9778 Mar, [facility] [place] [facility] [address] [id number] [place] [address]- 5552 Mar, [facility] [place] [facility] [address] [id number] [place] [address]- 4703 Mar, [facility] [place] [facility] [address] [id number] [place] [address]- 7635 Mar, [facility] [place] [facility] [address] [facility] [id number] [place] [address]- 5619 Mar, [facility] [place] [facility] [address] [id number] [place] [address]- 6369 Mar, [facility] [place] [facility] [address] [id number] [place] [address]- 8400 Feb, [facility] [place] [facility] [address] [id number] [place] [address]- 0206 Feb, [facility] [place] [facility] [address] [facility] [id number] [place] [address]- 2998 Feb, [facility] [place] [facility] [address] [id number], [place] [address]- 0172 Feb, [facility] [address] [id number] [place] [address]- 3029 Feb, [facility] [place] [facility] [address] [id number] [place] [address]- 6911 Feb, [facility] [place] [facility] [address] [facility] [id number] [place] [address]- 1102 Feb, [facility] [place] [facility] [address] [id number] [place] [address]- 2746 Feb, [facility] [place] [facility] [address] [facility] [id number] [place] [address]- 5851 Feb, [facility] [place] [facility] [address] [facility] [id number] [place] [address]- 4213 Feb, [facility] [id number] [place] [address]- 0645 Jan, [facility] [place] [facility] [address] [id number] [place] [address]- 3981 Jan, [facility] [place] [facility] [address] [facility] [id number] [place] [address]- 0504 Jan, [facility] [place] [facility] [address] [facility] [id number] [place] [address]- 2948 Jan, [facility] [place] [facility] [address] [facility] [id number] [place] [address]- 3715 Jan, [facility] [place] [facility] [address] [facility] [id number], [place] [address]- 4705 Jan, [facility] [place] [facility] [address] [id number] [place] [address]- 2678 Jan, [facility] [place] [facility] [address] [facility] [id number] [place] [address]- 6929 Jan, [facility] [place] [facility] [address] [facility] [id number] [place] [address]- 5960 14 Dec, 2012 [facility] [place] [facility] [address] [id number] [place] [address]- 7177 14 Dec, 2012 [facility] [place] [facility] [address] [id number] [place] [address]- 4853 Dec, [facility] [place] [facility] [address] [id number] [place] [address]- 0188 Dec, [facility] [place] [facility] [address] [id number] [place] [address]- 9406 Dec, [facility] [place] [facility] [address] [id number] [place] [address]- 0015 Dec, [facility] [place] [facility] [address] [id number] [place] [address]- 6352 Dec, [facility] [place] [facility] [address] [id number] [place] [address]- 0933 Dec, [facility] [place] [facility] [address] [id number] [place] [address]- 8233 Nov, [facility] [place] [facility] [address] [id number] [place] [address]- 9733 Nov, [facility] [place] [facility] [address] [id number] [place] [address]- 9146 Nov, [facility] [place] [facility] [address] [id number] [place] [address]- 0127 Nov, [facility] [place] [facility] [address] [id number] [place] [address]- 3147 Nov, [facility] [place] [facility] [address] [id number] [place] [address]- 8003 Nov, [facility] [place] [facility] [address] [id number] [place] 5127 Nov, [facility] [place] [facility] [address] [id number] [place] [address]- 3721 10 Oct, 2012 [facility] [place] [facility] [address] [id number] [place] [address]- 9084 Oct, [facility] [place] [facility] [address] [id number] [place] [address]- 9094 Oct, [facility] [place] [facility] [address] [id number] [place] [address]- 6030 Sep, [facility] [place] [facility] [address] [id number] [place] [address]- 7849 Sep, [facility] [place] [facility] [address] [id number] [place] [address]- 9963 Sep, [facility] [place] [facility] [address] [id number] [place] [address]- 2199 Sep, [facility] [place] [facility] [address] [id number] [place] [address]- 9636 Aug, [facility] [place] [facility] [address] [id number] [place] [address]- 0043 Aug, [facility] [place] [facility] [address] [id number] [place] [address]- 4533 Aug, [facility] [place] [facility] [address] [id number] [place] [address]- 0650 Aug, [facility] [place] [facility] [address] [id number] [place] [address]- 5858 Aug, [facility] [place] [facility] [address] [id number] [place] [address]- 1232 Jul, [facility] [place] [facility] [address] [id number], [place] [address]- 9561 Jul, [facility] [place] [facility] [address] [id number] [place] [address]- 7432 Jul, [facility] [place] [facility] [address] [id number] [place] [address]- 1976 Jul, [facility] [place] [facility] [address] [id number] [place] [address]- 9888 Jul, [facility] [place] [facility] [address] [id number] [place] [address]- 1598 June, [facility] [address] [id number] [place] [address]- 7657 June, [facility] [address] [id number] [place] [address]- 1008 June, [facility] [address] [id number] [place] [address]- 9619 June, [facility] [address] [id number] [place] [address]- 2633 June, [facility] [address] [id number] [place] 9994 May, [facility] [address] [id number] [place] [address]- 2263 May, [facility] [address] [id number] [place] [address]- 8934 May, [facility] [address] [id number] [place] [address]- 3813 May, [facility] [address] [id number] [place] [address]- 4980 May, [facility] [address] [id number] [place] [address]- 2783 May, [facility] [address] [id number] [place] [address]- 2122 04 May, 2012 [facility] [address] [id number] [place] [address]- 3821 Apr, [facility] [place] [facility] [address] [id number] [place] [address]- 9629 Apr, [facility] [place] [facility] [address] [id number] [place] [address]- 4570 Apr, [facility] [address] [id number] [place] [address]- 6631 Mar, [facility] [place] [facility] [address] [id number] [place] [address]- 6838 Mar, [facility] [place] [facility] [address] [id number] [place] [address]- 1436 Mar, [facility] [address] [id number] [place] [address]- 4916 Mar, [facility] [place] [facility] [address] [id number] [place] [address] 2542 Mar, [facility] [address] [id number] [place] [address]- 0823 Mar, [facility] [place] [facility] [address] [id number] [place] [address]- 3976 07 Mar, 2012 [facility] [address] [id number] [place] [address]- 7726 Mar, [facility] [address] [id number] [place] [address]- 7020 Feb, [facility] [address] [id number] [place] [address]- 3042 Feb, [facility] [place] [facility] [address] [id number] [place] [address]- 6070 Feb, [facility] [place] [facility] [address] [id number] [place] [address]- 3392 Feb, [facility] [place] [facility] [address] [id number] [place] [address]- 6506 18 Feb, 2012 [facility] [place] [facility] [address] [id number] [place] [address]- 6726 15 Feb, 2012 [facility] [place] [facility] [address] [id number] [place] [address]- 4232 14 Feb, 2012 [facility] [place] [facility] [address] [id number] [place] [address] Jan, [facility] [place] [facility] [address] [id number] [place] [address] 27 Jan, 2012 [facility] [place] [facility] [address] [id number] [place] [address] Jan, [facility] [place] [facility] [address] [id number] [place] [address] Jan, [facility] [place] [facility] [address] [id number] [place] [address] Jan, [facility] [place] [facility] [address] [id number] [place] [address] Jan, [facility] [place] [facility] [address] [id number] [place] [address] Jan, [facility] [place] [facility] [address] [id number] [place] [address] Jan, [facility] [place] [facility] [address] [id number] [place] [address]- [address] Jan, [facility] [place] [facility] [address] [id number] [place] [address] 13 Jan, 2012 [facility] [place] [facility] [address] [id number] [place] [address] Jan, [facility] [place] [facility] [address] [facility] [id number] [place] [address] Jan, [facility] [place] [facility] [address] [id number] [place] [address] Jan, [facility] [place] [facility] [address] [id number] [place] [address] Jan, [facility] [place] [facility] [address] [id number] [place] [address] 17[address] Dec, [facility] [place] [facility] [address] [id number] [place] [address] Dec, [facility] [place] [facility] [address] [id number] [place] [address]- [address] Dec, [facility] [place] [facility] [address] [id number] [place] [address] Dec, [facility] [place] [facility] [address] [id number] [place] [address]- [address] Dec, [facility] [place] [facility] [address] [id number] [place] [address]- 26[address] Dec, [facility] [place] [facility] [address] [id number] [place] [address]- 8567 Dec, [facility] [place] [facility] [address] [id number] [place] [address]- [address] Dec, [facility] [place] [facility] [address] [id number] [place] [address]- [address] Dec, [facility] [place] [facility] [address] [id number] [place] [address]- 1633 Dec, [facility] [place] [facility] [address] [id number] [place] [address]100 Dec, [facility] [place] [facility] [address] [id number] [place] [address]- 8090 Dec, [facility] [place] [facility] [address] [id number] [place] [address]- 47[address] Dec, [facility] [place] [facility] [address] [id number] [place] [address]- [address] Dec, [facility] [place] [facility] [address] [id number] [place] [address]- 9460 Dec, [facility] [place] [facility] [address] [id number] [place] [address] Dec, [facility] [place] [facility] [address] [id number] [place] [address] Dec, [facility] [place] [facility] [address] [id number] [place] [address]- 9702 Dec, [facility] [place] [facility] [address] [id number] [place] [address]- 2546 Dec, [facility] [place] [facility] [address] [id number] [place] [address]- 1775 Dec, [facility] [place] [facility] [address] [id number] [place] [address] 45[address] Nov, [facility] [place] [facility] [address] [id number] [place] [address] 287[address] Nov, [facility] [place] [facility] [address] [id number] [place] [address]- 265[address] Nov, [facility] [place] [facility] [address] [id number] [place] [address] Nov, [facility] [place] [facility] [address] [id number] [place] [address] Nov, [facility] [place] [facility] [address] [id number] [place] [address]- 4[address] Nov, [facility] [place] [facility] [address] [id number], [place] [address]- [address] Nov, [facility] [place] [facility] [address] [id number] [place] [address]- 0273 Nov, [facility] [place] [facility] [address] [id number] [place] [address]- 7460 Nov, [facility] [place] [facility] [address] [id number], [place] [address]- [address] Nov, [facility] [place] [facility] [address] [id number], [place] [address]- [address] Nov, [facility] [place] [facility] [address] [id number] [place] [address]- 9470 Nov, [facility] [place] [facility] [address] [id number], [place] [address]- [address] Nov, [facility] [place] [facility] [address] [id number] [place] [address] 8317 Oct, [facility] [place] [facility] [address] [id number] [place] [address]- [address] 27 Oct, 2011 [facility] [place] [facility] [address] [id number] [place] [address]- [address] 24 Oct, 2011 [facility] [place] [facility] [address] [id number] [place] [address]- 4926 20 Oct, 2011 [facility] [address] [id number] [place] [address]- [address]236 11 Oct, 2011 [facility] [place] [facility] [address] [id number] [place] [address] 39[address] 11 Oct, 2011 [facility] [place] [facility] [address] [id number] [place] [address]- 8022 24 Sep, 2011 [facility] [place] [facility] [address] [id number] [place] [address]- 9875 Sep, [facility] [address] [id number] [place] [address]842 Sep, [facility] [address] [id number] [place] [address]- 2736 Sep, [facility] [address] [id number] [place] [address] 8279 Aug, [facility] [address] [id number] [place] [address]- 7549 Aug, [facility] [place] [address] [id number] [place] [address]- 2828 Aug, [facility] [address] [id number] [place] [address]- 5864 Jul, [facility] [place] [facility] [address] [id number] [place] [address]- 9505 Jul, [facility] [place] [facility] [address] [id number] [place] [address]- 8857 Jul, [facility] [place] [facility] [address] [id number] [place] [address]- 6846 Jul, [facility] [address] [id number] [place] [address]- 3556 June, [facility] [place] [facility] [address] [id number] [place] [address]- 5541 June, [facility] [place] [facility] [address] [id number] [place] [address] June, [facility] [place] [facility] [address] [id number] [place] [address]- 0920 June, [facility] [place] [facility] [address] [id number] [place] [address]- 5662 June, [facility] [place] [facility] [address] [id number] [place] [address]- 1565 June, [facility] [place] [facility] [address] [id number] [place] [address]- 4628 May, [facility] [place] [facility] [address] [id number] [place] [address] May, [facility] [place] [facility] [address] [id number] [place] [address] May, [facility] [place] [facility] [address] [id number] [place] [address] May, [facility] [place] [facility] [address] [id number] [place] [address] May, [facility] [place] [facility] [address] [id number], [place] [address] 18 May, 2011 [facility] [place] [facility] [address] [id number] [place] [address] May, [facility] [place] [facility] [address] [id number] [place] [address] 05 May, 2011 [facility] [place] [facility] [address] [id number] [place] [address] May, [facility] [place] [facility] [address] [id number], [place] [address] Apr, [facility] [place] [facility] [address] [id number] [place] [address] 29 Mar, 2011 [facility] [place] [facility] [address] [id number] [place] [address]226 27 Mar, 2011 [facility] [place] [facility] [address] [id number] [place] [address] Mar, [facility] [place] [facility] [address] [id number] [place] [address] Mar, [facility] [place] [facility] [address] [id number] [place] [address] Feb, [facility] [place] [facility] [address] [id number] [place] [address] Feb, [facility] [place] [facility] [address] [facility] [id number] [place] [address] Feb, [facility] [place] [facility] [address] [id number] [place] [address] Jan, [facility] [place] [facility] [address] [facility] [id number] [place] [address] Jan, [facility] [place] [facility] [address] [facility] [id number] [place] [address]135 14 Jan, 2011 [facility] [place] [facility] [address] [facility] [id number] [place] [address] 9702 29 Dec, 2010 [facility] [place] [facility] [address] [id number] [place] [address]49 28 Dec, 2010 [facility] [place] [facility] [address] [id number] [place] [address]367 16 Dec, 2010 [facility] [place] [facility] [address] [facility] [id number] [place] [address]40 15 Dec, 2010 [facility] [place] [facility] [address] [id number] [place] [address] 62[address] 31 Nov, 2010 [facility] [place] [facility] [address] [id number] [place] [address] 8298 31 Nov, 2010 [facility] [place] [facility] [address] [id number] [place] [address] 4231 19 Nov, 2010 [facility] [place] [facility] [address] [id number] [place] [address] 8429 18 Nov, 2010 [facility] [place] [facility] [address] [id number] [place] [address], [place] [address]- [address] 13 Oct, 2010 [facility] [place] [facility] [address] [id number] [place] [address] Jul, [facility] [place] [facility] [address] [id number] [place] [address] 27[address] Jan, [facility] [place] [facility] [address] [id number] [place] [address] 4417 Dec, [facility] [place] [facility] [address] [id number] [place] [address] 9232 Dec, [facility] [place] [facility] [address] [id number] [place] [address] Dec, [facility] [place] [facility] [address] [id number] [place] [address] 4738 Dec, [facility] [place] [facility] [address] [id number] [place] [address]284 Dec, [facility] [place] [facility] [address] [id number] [place] [address] 6260 Dec, [facility] [place] [facility] [address] [id number] [place] [address] 4[address] Nov, [facility] [place] [facility] [address] [id number] [place] [address] Nov, [facility] [place] [facility] [address] [id number] [place] [address] 99[address] Nov, [facility] [place] [facility] [address] [id number], [place] [address] 20 Apr, 2009 [facility] [place] [facility] [address] [id number] [place] [address] 17 Apr, 2009 [facility] [place] [facility] [address] [id number] [place] [address] 2546 29 Jan, 2009 [facility] [place] [facility] [address] [id number] [place] [address] 2546 28 Jan, 2009 [facility] [place] [facility] [address] [id number], [place] [address] 2543 23 Jan, 2009 [facility] [place] [facility] [address] [id number] [place] [address]- 1386 17 Jan, 2009 [facility] [place] [facility] [address] [id number] [place] [address]- 0376 14 Jan, 2009 [facility] [place] [facility] [address] [id number] [address] Jan, [facility] [place] [facility] [address] [id number], [place] [address]- [address] 30 Dec, 2008 [facility] [place] [facility] [address] [id number], [place] [address] 4749 23 Dec, 2008 [facility] [place] [facility] [address] [id number], [place] [address] 18 Dec, 2008 [facility] [place] [facility] [address] [id number], [place] [address]28 Dec, [facility] [place] [facility] [address] [id number], [place] [address] 84[address] Dec, [facility] [place] [facility] [address] [id number], [place] [address] 2549 Dec, [facility] [place] [facility] [address] [id number], [place] [address] 2816 28 Nov, 2008 [facility] [place] [facility] [address] [id number], [place] [address]48 Nov, [facility] [place] [facility] [address] [facility] [id number] [place] [address] Aug, [facility] [address] [facility] [id number], [place] [address] Jul, [facility] [address] [facility] [id number], [place] [address] June, [facility] [address] [facility] [id number], [place] [address] Apr, IMMUNIZATIONS No Known Immunizations SOCIAL HISTORY Never Assessed REASON FOR VISIT Powerchair Eval--tcuppettRN PLAN OF CARE Activity Details Follow Up as directed by [facility] in [place] for chair eval Reason: VITAL SIGNS Height 63 in 2017-08-06 Weight 121.2 lbs 2017-08-06 Temperature 98.4 degrees Fahrenheit 2017-08-06 Heart Rate 90 bpm 2017-08-06 Respiratory Rate 20 2017-08-06 BMI 21.47 kg/m2 2017-08-06 Blood pressure systolic 126 mmHg 2017-08-06 Blood pressure diastolic 82 mmHg 2017-08-06 MEDICATIONS Medication Instructions Dosage Frequency Start Date End Date Duration Status Acetaminophen 500 MG Orally three times per day 2 tablets Not- Taking Furosemide 20 mg Orally Once a day 1 tablet 24h 30 Not-Taking Artificial Tear Solution Ophthalmic 2 times a day 2 drops as needed 12h Active Famotidine 20 mg Orally Twice a day 1 tablet 12h 90 days Not-Taking Restasis 0.05 % Ophthalmic Twice a day 1 drop into affected eye 12h Active Meloxicam 7.5 MG orally 2 times a day 1 tablet 12h 90 days Active BusPIRone HCl 5 mg Orally 2 times a day 1 tablet 12h 90 Active Duloxetine HCl 60 mg Orally 2 times a day 1 capsule 12h 90 Active Clonazepam 0.5 MG Orally daily(part of taper) 0.5 tablet in morning and full tablet at night for one month 30 days Active RESULTS No Results PROCEDURES Procedure Date Ordered Result Body Site [facility] VISIT ESTABLISHED PATIENT August 06, 2017 INSTRUCTIONS MEDICATIONS ADMINISTERED No Known Medications MEDICAL (GENERAL) HISTORY Type Description Date Medical History anxiety Medical History chronic pain: secondary to OA Medical History orthopedic disorder: osteopenia, compression fx L3, hx of wrist fx 1989 Medical History osteoarthritis Medical History hx of cervical dysplasia ([place]) Medical History 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
--- OUTSIDE RECORDS SUMMARY | 2017-10-26 13:33 | XMS REPORT ---
Author Author GUADALUPESHWETAA Organization [facility] Address [address] [place] [address] Care Team Providers Care Assayer Name Role Phone RAMILACHENG LETY Unavailable PROBLEMS Type Condition ICD9-CM Code TFZ66-DB Code Onset Dates Condition Status SNOMED Code Problem Generalized anxiety disorder F41.1 Active 955878944 Problem Seasonal allergic rhinitis due to other allergic trigger J30.89 Active 368031498 Problem Anxiety disorder, unspecified F41.9 Active 394759664 Problem 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 Active 628259246 Problem Meningioma D32.9 Active 646421534 Problem Generalized osteoarthritis M15.9 Active 723794712 Problem Dementia without behavioral disturbance, unspecified dementia type F03.90 Active 32421226 Problem Debility R53.81 Active 83225565 Problem At risk for falls Z91.81 Active 115564615 Problem Other chronic pain G89.29 Active 43618243 Problem Panic attacks F41.0 Active 987344919 Problem Acute drug withdrawal syndrome without complication F19.230 Active 244593627 Problem Anxiety F41.9 Active 01849995 ALLERGIES No Information ENCOUNTERS Encounter Location Date Diagnosis [facility] [id number] [address] Nov, [facility] [id number] [place] [address] 66987- 6057 Sep, [facility] [id number] [address] 2734 Aug, [facility] [id number] [place] [address] 19478- 8381 Aug, Dementia without behavioral disturbance, unspecified dementia type F03.90 [facility] [id number] [address] 1466 Aug, Dementia without behavioral disturbance, unspecified dementia type F03.90 and Anxiety F41.9 [facility] [id number] [place] [address] 05124- 7362 Jul, Dementia without behavioral disturbance, unspecified dementia type F03.90 [facility] [id number] [place] [address] 51083- 1715 Jul, 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 ; Generalized osteoarthritis M15.9 ; Other chronic pain G89.29 ; At risk for falls Z91.81 and Debility R53.81 [facility] [id number] [place] [address] 68061- 0135 Jul, [facility] [id number] [place] [address] 24874- 3189 June, Dementia without behavioral disturbance, unspecified dementia type F03.90 [facility] [id number] [place] [address] 25306- 2601 June, [facility] [id number] [place] [address] 61196- 1402 June, [facility] [id number] [place] [address] 33346- 8558 June, [facility] [id number] [place] [address] 44222- 8609 June, Dementia without behavioral disturbance, unspecified dementia type F03.90 and Anxiety F41.9 [facility] [id number] [place] [address] 71528- 9129 May, [facility] [id number] [place] [address] 97104- 8106 May, [facility] [id number] [place] [address] 69604 -6924 May, Anxiety F41.9 ; Acute drug withdrawal syndrome without complication F19.230 and Abdominal pain, unspecified abdominal location R10.9 [facility] [id number] [place] [address] 29732- 4042 May, Panic attacks F41.0 [facility] [id number] [place] [address] 00202- 0018 May, Other chronic pain G89.29 and Generalized anxiety disorder F41.1 [facility] [id number] [place] [address] 26459- 9174 Apr, Housing problems Z59.9 and Panic attacks F41.0 [facility] [id number] [place] [address] 38351- 8540 Mar, Panic attacks F41.0 [facility] [id number] [place] [address] 18675- 0649 Feb, [facility] [id number] [place] [address] 69632- 3129 Feb, Panic attacks F41.0 [facility] [id number] [place] [address] 80447- 8058 Feb, Pain in right knee M25.561 ; Pain in left knee M25.562 ; Other chronic pain G89.29 ; Housing problems Z59.9 ; Dementia without behavioral disturbance, unspecified dementia type F03.90 ; Generalized anxiety disorder F41.1 and Advance directive declined by patient Z78.9 [facility] [id number] [place] [address] 24132- 5477 Jan, Panic attacks F41.0 [facility] [id number] [place] [address] 54662- 9460 Jan, Panic attacks F41.0 [facility] [id number] [place] [address] 23679- 2471 Dec, Panic attacks F41.[address] [facility] [id number] [place] [address] 70254 -0062 Nov, Allergic contact dermatitis due to cosmetics L23.2 [facility] [id number] [place] [address] 10275- 9137 Nov, Panic attacks F41.0 [facility] [id number] [place] [address] 01861- 7614 Oct, Panic attacks F41.0 [facility] [id number] [place] [address] 54540- 9138 Sep, Panic attacks F41.0 ; Insect bite, initial encounter W57.XXXA and 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 [facility] [id number] [place] [address] 67475- 9145 Sep, [facility] [id number] [place] [address] 92770- 7235 Aug, Generalized anxiety disorder F41.1 [facility] [id number] [place] [address] 03312- 2511 Jul, [facility] [id number] [place] [address] 66575 -2814 June, Seasonal allergic rhinitis due to other allergic trigger J30.89 [facility] [id number] [place] [address] 73901- 4581 June, [facility] [id number] [place] [address] 64381- 7387 June, [facility] [id number] [place] [address] 10952 -6739 June, Dysuria R30.0 and RLQ abdominal pain R10.31 [facility] [id number] [place] [address] 26213- 3064 May, Generalized anxiety disorder F41.1 ; Generalized osteoarthritis M15.9 and Dementia without behavioral disturbance, unspecified dementia type F03.90 [facility] [id number] [place] [address] 81669- 6928 May, [facility] [id number] [place] [address] 54112- 6741 May, [facility] [address] [address]- 1210 May, [facility] [id number] [place] [address]- 5806 Apr, [facility] [address] [address]- 1230 Apr, Generalized anxiety disorder F41.1 [facility] [id number] [place] [address], [place] [address]- 6371 Apr, [facility] [address] [place] [address], [place] [address]- 4124 Apr, [facility] [id number] [place] [address] 31494- 7260 Apr, [facility] [id number] [place] [address]- 3663 Apr, Generalized anxiety disorder F41.1 [facility] [address] [place] [address]- 9932 Mar, [facility] [address] [address]- 6173 Mar, [facility] [address] [address]- 9821 Mar, [facility] [id number] [address]- 2289 Mar, [facility] [address] [address]- 3260 Mar, Generalized anxiety disorder F41.1 [facility] [id number] [address]- 7593 Feb, Anxiety disorder, unspecified F41.9 [facility] [id number] [address]- 1611 Feb, [facility] [id number] [address]- 8315 Feb, [facility] [id number] [place] [address] 23457- 0061 Feb, [facility] [id number] [place] [address] 96815 -2705 Feb, Urinary frequency R35.0 and Acute cystitis without hematuria N30.00 [facility] [id number] [place] [address] 32297- 8164 Feb, [facility] [id number] [place] [address] 46559- 3371 Jan, [facility] [id number] [place] [address] 27200- 6207 Jan, [facility] [id number] [place] [address] 56389- 9739 Dec, [facility] [id number] [place] [address] 36790- 8157 Dec, [facility] [id number] [place] [address] 81165- 6098 Dec, Edema, unspecified type R60.9 [facility] [id number] [place] [address] 32978- 8104 Dec, [facility] [id number] [place] [address] 01083- 4774 Dec, [facility] [id number] [place] [address] 28881- 7123 30 Oct, 2015 Generalized anxiety disorder F41.1 [facility] [id number] [place] [address] 05644- 9212 20 Oct, 2015 [facility] [id number] [place] [address] 62965- 3162 16 Oct, 2015 [facility] [id number] [place] [address] 04322- 8318 15 Oct, 2015 [facility] [address] [address]- 5108 Oct, [facility] [id number] [address]- 7709 Aug, Anxiety disorder, unspecified F41.9 [facility] [address] [address]- 0616 Jul, Anxiety disorder, unspecified F41.9 [facility] [address] [place] [address] 06249- 5794 Jul, Generalized anxiety disorder F41.1 [facility] [address] [place] [address] 55357- 4450 Jul, [facility] [id number] [place] [address] 22137- 2240 June, [facility] [id number] [place] [address] 53878- 9647 June, [facility] [address] [address]- 5691 June, [facility] [id number] [place] [address] 76296- 8144 June, [facility] [address] [address]- 9213 May, [facility] [address] [address] -6254 May, Dementia without behavioral disturbance, unspecified dementia type F03.90 and Generalized osteoarthritis M15.9 [facility] [address] [address]- 4009 May, Generalized osteoarthritis M15.9 and 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 [facility] [address] [address]- 8813 Apr, [facility] [id number] [address]- 9633 Apr, [facility] [id number] [place] [address] 25015- 2636 Apr, [facility] [address] 38287- 5010 Mar, [facility] [address] 97238- 4717 Mar, [facility] [address] 54009- 3555 Mar, Generalized anxiety disorder F41.1 [place] [address] 28613- 9511 Feb, Other infective acute otitis externa of right ear H60.391 [place] [address] 73376- 1082 Dec, Dysuria R30.0 ; Generalized osteoarthritis M15.9 and Gastroesophageal reflux disease, esophagitis presence not specified K21.9 [facility] [id number] [place] [address] 57780- 7181 Dec, [facility] [facility] [address] 62391- 9396 Dec, Generalized anxiety disorder F41.1 ; Encounter for immunization Z23 and Dementia F03.90 [facility] [id number] [place] [address] 47135- 1383 Nov, [facility] [address] 38515- 1810 Oct, [facility] [address] 21094- 2434 24 Oct, 2014 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 ; Chronic pain 338.29 ; Anxiety 300.00 and Dementia 294.20 [facility] [id number] [place] [address] 41944- 2771 Oct, [facility] [address] 33594- 9991 Aug, Generalized anxiety disorder 300.02 and Dementia 294.20 [facility] [address] 7969 Aug, [facility] [address] [address]- 3582 Aug, Anxiety 300.00 and Chronic pain 338.29 [facility] [id number] [place] [address] 21887- 9223 Jul, [facility] [address] [place] [address] 041240- 7705 Jul, [facility] [id number] [place] [address] 65662- 0407 June, [facility] [id number] [place] [address] 28139- 0057 June, Anxiety, generalized 300.02 ; Dementia 294.20 and No condition on [place] II V71.09 [facility] [address] [address]- 4111 May, [facility] [id number] [address]- 9998 May, [facility] [address] [address]- 3540 Apr, [facility] [address] [address]- 6349 Apr, [facility] [address] [address]- 3434 Apr, [facility] [id number] 2910 Apr, [facility] [address] [address]- 3896 Apr, [facility] [address] 6564 Apr, [facility] [place] [facility] [address] [id number] [place] [address]- 0679 Apr, [facility] [place] [facility] [address] [id number] [place] [address]- 5945 Apr, 2014 [facility] [place] [facility] [address] [id number] [place] [address]- 4601 Apr, 2014 [facility] [place] [facility] [address] [id number] [place] [address]- 6022 Apr, 2014 [facility] [place] [facility] [address] [id number] [place] [address]- 3644 Apr, 2014 [facility] [place] [facility] [address] [id number] [place] [address]- 3176 Apr, [facility] [place] [facility] [address] [facility] [id number] [place] [address]- 0559 Apr, [facility] [place] [facility] [address] [id number] [address]- 9830 Apr, [facility] [place] [facility] [address] [id number] [place] [address]- 8524 Apr, [facility] [place] [facility] [address] [id number] [address]- 9728 Apr, [facility] [place] [facility] [address] [id number] [address]- 6669 Mar, 2014 [facility] [place] [facility] [address] [id number] [place] [address]- 2670 Mar, 2014 [facility] [place] [facility] [address] [id number] [place] [address]- 7670 Mar, 2014 [facility] [place] [facility] [address] [id number] [place] [address]- 1979 Mar, 2014 [facility] [place] [facility] [address] [facility] [id number] [address]- 5088 Mar, 2014 [facility] [place] [facility] [address] [id number] [place] [address] 2540 26 Mar, 2014 [facility] [place] [facility] [address] [id number] [place] [address]- 3596 23 Mar, 2014 [facility] [place] [facility] [address] [id number] [place] [address]- 2546 23 Mar, 2014 [facility] [place] [facility] [address] [id number] [place] [address] 2540 20 Mar, 2014 [facility] [place] [facility] [address] [id number] [place] [address]- 2548 20 Mar, 2014 [facility] [place] [facility] [address] [id number] [place] [address] 2540 18 Mar, 2014 [facility] [place] [facility] [address] [facility] [id number] [place] [address]- 5071 18 Mar, 2014 [facility] [place] [facility] [address] [facility] [id number] [place] [address]- 5883 17 Mar, 2014 [facility] [place] [facility] [address] [facility] [id number] [place] [address]- 4465 17 Mar, 2014 [facility] [place] [facility] [address] [facility] [id number] [place] [address]- 4912 17 Mar, 2014 [facility] [place] [facility] [address] [facility] [id number] [place] [address]- 7394 17 Mar, 2014 [facility] [place] [facility] [address] [facility] [id number] [address]- 2544 13 Mar, 2014 [facility] [place] [facility] [address] [facility] [id number] [place] [address]- 2546 13 Mar, 2014 [facility] [place] [facility] [address] [facility] [id number] [place] [address]- 2546 13 Mar, 2014 [facility] [place] [facility] [address] [facility] [id number] [place] [address]- 2546 13 Mar, 2014 [facility] [place] [facility] [address] [facility] [id number] [place] [address]- 0616 Mar, 2014 [facility] [place] [facility] [address] [id number] [place] [address]- 7816 Mar, [facility] [place] [facility] [address] [id number] [place] [address] 2546 Mar, 2014 [facility] [place] [facility] [address] [id number] [place] [address]- 4706 Mar, 2014 [facility] [place] [facility] [address] [id number] [place] [address] 2546 Mar, [facility] [place] [facility] [address] [id number] [place] [address]- 9522 Mar, [facility] [place] [facility] [address] [id number] [place] [address]- 9252 Feb, [facility] [place] [facility] [address] [id number] [place] [address]- 5853 Feb, [facility] [place] [facility] [address] [id number] [place] [address]- 4812 Feb, [facility] [place] [facility] [address] [id number] [place] [address]- 0760 Feb, [facility] [place] [facility] [address] [id number] [place] [address]- 8496 Feb, [facility] [place] [facility] [address] [id number] [place] [address] 2540 Feb, [facility] [place] [facility] [address] [id number] [place] [address]- 2541 Feb, [facility] [place] [facility] [address] [id number] [place] [address]- 8894 Feb, [facility] [place] [facility] [address] [id number] [place] [address] Feb, [facility] [place] [facility] [address] [id number] [place] [address] Feb, [facility] [place] [facility] [address] [id number] [place] [address] Feb, [facility] [place] [facility] [address] [id number] [place] [address] Feb, [facility] [place] [facility] [address] [id number] [place] [address] Feb, [facility] [place] [facility] [address] [id number] [place] [address] Feb, [facility] [place] [facility] [address] [id number] [place] [address]- [address] Feb, [facility] [place] [facility] [address] [id number] [place] [address] Jan, [facility] [place] [facility] [address] [id number] [place] [address] Jan, [facility] [place] [facility] [address] [id number] [place] [address] Jan, [facility] [place] [facility] [address] [id number] [place] [address]- [address] Jan, [facility] [place] [facility] [address] [id number] [place] [address] Jan, [facility] [place] [facility] [address] [id number] [place] [address]- [address] Jan, [facility] [place] [facility] [address] [id number] [place] [address]- [address] Jan, [facility] [place] [facility] [address] [id number] [place] [address]- [address] Jan, [facility] [place] [facility] [address] [id number] [place] [address]- 39[address] Jan, [facility] [place] [facility] [address] [id number] [place] [address]- 46[address] Jan, [facility] [place] [facility] [address] [id number] [address] Jan, [facility] [place] [facility] [address] [id number] [place] [address]- 6955 Jan, [facility] [place] [facility] [address] [id number] [place] [address]- 7627 Jan, [facility] [place] [facility] [address] [id number] [place] [address] Jan, [facility] [place] [facility] [address] [id number] [place] [address] Jan, [facility] [place] [facility] [address] [id number] [place] [address]- [address] Jan, [facility] [place] [facility] [address] [id number] [place] [id number] Jan, [facility] [place] [facility] [address] [id number] [place] [address] Jan, [facility] [place] [facility] [address] [id number] [place] [address]- [address] Jan, [facility] [place] [facility] [address] [id number] [place] [address] Jan, [facility] [place] [facility] [address] [id number] [place] [address]- [address] Dec, [facility] [place] [facility] [address] [id number] [place] [address]- [address]164 Dec, [facility] [place] [facility] [address] [id number] [place] [address]- [address] Dec, [facility] [place] [facility] [address] [id number] [place] [address]- [address] Dec, [facility] [place] [facility] [address] [id number] [place] [address] Dec, [facility] [place] [facility] [address] [id number] [place] [address] Dec, [facility] [place] [facility] [address] [id number] [place] [address] Dec, [facility] [place] [facility] [address] [id number] [place] [address] Nov, [facility] [place] [facility] [address] [id number] [place] [address]- [address] Nov, [facility] [place] [facility] [address] [id number] [place] [address] Nov, [facility] [place] [facility] [address] [id number] [place] [address]- [address]13 Nov, [facility] [place] [facility] [address] [id number] [place] [address]- [address] Nov, [facility] [place] [facility] [address] [id number] [place] [address]- [address] Nov, [facility] [place] [facility] [address] [id number] [place] [address] Nov, [facility] [place] [facility] [address] [id number] [place] [address] Nov, [facility] [place] [facility] [address] [id number] [place] [address] 5[address] Nov, [facility] [place] [facility] [address] [id number] [place] [address] 6649 Nov, [facility] [place] [facility] [address] [id number] [place] [address] 7290 29 Oct, 2013 [facility] [place] [facility] [address] [id number] [place] [address]- 2540 29 Oct, 2013 [facility] [place] [facility] [address] [id number] [place] [address]- 4505 15 Oct, 2013 [facility] [place] [facility] [address] [id number] [place] [address]- 9196 15 Oct, 2013 [facility] [place] [facility] [address] [id number] [place] [address]- 8953 15 Oct, 2013 [facility] [place] [facility] [address] [id number] [place] [address]- 0363 15 Oct, 2013 [facility] [place] [facility] [address] [id number] [place] [address]- 5350 10 Oct, 2013 [facility] [place] [facility] [address] [id number] [place] [address]- 8395 10 Oct, 2013 [facility] [place] [facility] [address] [id number] [place] [address]- 1746 Oct, [facility] [place] [facility] [address] [id number] [place] [address] 3801 Oct, [facility] [place] [facility] [address] [id number] [place] [address]- 3532 Sep, [facility] [place] [facility] [address] [id number] [place] [address]- 2306 Sep, [facility] [place] [facility] [address] [id number] [place] [address]- 3552 Sep, [facility] [place] [facility] [address] [id number] [place] [address]- 0800 Sep, [facility] [place] [facility] [address] [id number] [place] [address]- 6682 Sep, [facility] [place] [facility] [address] [id number] [place] [address]- 6399 Sep, [facility] [place] [facility] [address] [id number] [place] [address]- 5853 Sep, [facility] [place] [facility] [address] [id number] [place] [address]- 7186 Sep, [facility] [place] [facility] [address] [id number] [place] [address]- 7674 Sep, [facility] [place] [facility] [address] [id number] [place] [address]- 2467 Sep, [facility] [place] [facility] [address] [id number] [place] [address]- 1447 Aug, [facility] [place] [facility] [address] [id number] [place] [address]- 6650 Aug, [facility] [place] [facility] [address] [id number] [place] [address]- 1678 Aug, [facility] [place] [facility] [address] [id number] [place] [address]- 6835 Aug, [facility] [place] [facility] [address] [id number] [place] [address]- 6256 Aug, [facility] [place] [facility] [address] [id number] [place] [address]- 7383 Aug, [facility] [place] [facility] [address] [id number] [place] [address]- 9314 Aug, [facility] [place] [facility] [address] [id number] [place] [address]- 7112 Aug, [facility] [place] [facility] [address] [id number] [place] [address]- 5637 Aug, [facility] [place] [facility] [address] [id number] [place] [address]- 5059 Aug, [facility] [place] [facility] [address] [id number] [place] [address]- 2223 Aug, [facility] [place] [facility] [address] [id number] [place] [address]- 5150 Aug, [facility] [place] [facility] [address] [id number] [place] [address]- 1979 Jul, [facility] [place] [facility] [address] [id number] [place] [address]- 4352 Jul, [facility] [place] [facility] [address] [id number] [place] [address]- 3084 Jul, [facility] [place] [facility] [address] [id number] [place] [address]- 4283 Jul, [facility] [place] [facility] [address] [id number] [place] [address]- 7224 Jul, [facility] [place] [facility] [address] [id number] [place] [address]- 5881 Jul, [facility] [place] [facility] [address] [id number] [place] [address]- 1119 17 Jul, 2013 [facility] [place] [facility] [address] [id number] [place] [address]- 2993 Jul, [facility] [place] [facility] [address] [id number] [place] [address]- 3822 16 Jul, 2013 [facility] [place] [facility] [address] [id number] [place] [address]- 4875 Jul, [facility] [place] [facility] [address] [id number] [place] [address]- 5540 Jul, [facility] [place] [facility] [address] [id number] [place] [address]- 2048 Jul, [facility] [place] [facility] [address] [id number] [place] [address]- 8483 Jul, [facility] [place] [facility] [address] [id number] [place] [address]- 0145 Jul, [facility] [place] [facility] [address] [id number] [place] [address]- 3164 Jul, [facility] [place] [facility] [address] [id number] [place] [address]- 4593 Jul, [facility] [place] [facility] [address] [id number] [place] [address]- 2782 Jul, [facility] [place] [facility] [address] [id number] [place] [address]- 9973 June, [facility] [place] [facility] [address] [id number] [place] [address]- 2810 June, [facility] [place] [facility] [address] [id number] [place] [address]- 8692 June, [facility] [place] [facility] [address] [id number] [place] [address]- 9142 June, [facility] [place] [facility] [address] [id number] [place] [address]- 8128 June, [facility] [place] [facility] [address] [id number] [place] [address]- 7604 June, [facility] [place] [facility] [address] [id number] [place] [address]- 7795 June, [facility] [place] [facility] [address] [id number] [place] [address]- 8549 June, [facility] [place] [facility] [address] [id number] [place] [address]- 7339 June, [facility] [place] [facility] [address] [id number] [place] [address]- 1164 June, [facility] [place] [facility] [address] [id number] [place] [address]- 9852 June, [facility] [place] [facility] [address] [id number] [place] [address]- 8226 June, [facility] [place] [facility] [address] [id number] [place] [address]- 5334 June, [facility] [place] [facility] [address] [id number] [place] [address]- 1729 June, [facility] [place] [facility] [address] [id number] [place] [address]- 5598 June, [facility] [place] [facility] [address] [id number] [place] [address]- 3402 June, [facility] [place] [facility] [address] [id number] [place] [address]- 9055 June, [facility] [place] [facility] [address] [id number] [place] [address]- 5639 June, [facility] [place] [facility] [address] [id number] [place] [address]- 9828 June, [facility] [address] [id number] [place] [address]- 7609 June, [facility] [address] [id number] [place] [address]- 7800 June, [facility] [address] [id number] [place] [address]- 1058 June, [facility] [address] [id number] [place] [address]- 6898 June, [facility] [address] [id number] [place] [address]- 0477 June, [facility] [address] [id number] [place] [address]- 3376 June, [facility] [address] [id number] [place] [address]- 4824 June, [facility] [address] [id number] [place] [address]- 2029 June, [facility] [address] [id number] [place] [address]- 6945 June, [facility] [address] [id number] [place] [address]- 5082 June, [facility] [address] [id number] [place] [address]- 0936 June, [facility] [address] [id number] [place] [address] June, [facility] [address] [id number] [place] [address]- 2819 June, [facility] [address] [id number] [place] [id number] [address] May, [facility] [address] [id number] [place] [address]- 7097 May, [facility] [address] [id number] [place] [address]- 1375 May, [facility] [place] [facility] [address] [id number] [place] [address]- 7595 May, [facility] [place] [facility] [address] [id number] [place] [address]- 0956 May, [facility] [place] [facility] [address] [id number] [place] [address]- 3445 May, [facility] [place] [facility] [address] [id number] [place] [address]- 5272 May, [facility] [place] [facility] [address] [id number] [place] [address]- 2460 May, [facility] [place] [facility] [address] [id number] [place] [address]- 7259 May, [facility] [place] [facility] [address] [id number] [place] [address]- 2670 May, [facility] [place] [facility] [address] [id number] [place] [address]- 4715 May, [facility] [place] [facility] [address] [id number] [place] [address]- 4480 May, [facility] [place] [facility] [address] [id number] [place] [address]- 8043 May, [facility] [place] [facility] [address] [id number] [place] [address]- 1383 May, [facility] [place] [facility] [address] [id number] [place] [address]- 3223 May, [facility] [place] [facility] [address] [id number] [place] [address]- 0576 Apr, [facility] [place] [facility] [address] [id number] [place] [address]- 7564 Apr, [facility] [place] [facility] [address] [id number] [place] [address]- 0491 Apr, [facility] [place] [facility] [address] [id number] [place] [address]- 3356 Apr, [facility] [place] [facility] [address] [id number] [place] [address]- 2326 Apr, [facility] [place] [facility] [address] [facility] [id number] [place] [address]- 0316 Apr, [facility] [place] [facility] [address] [id number] [place] [address]- 6173 Mar, [facility] [place] [facility] [address] [id number] [place] [address]- 7716 Mar, [facility] [place] [facility] [address] [id number] [place] [address]- 8712 Mar, [facility] [place] [facility] [address] [facility] [id number] [place] [address]- 4366 Mar, [facility] [place] [facility] [address] [id number] [place] [address]- 8218 Mar, [facility] [place] [facility] [address] [id number] [place] [address]- 3588 Mar, [facility] [place] [facility] [address] [facility] [id number] [place] [address]- 0012 Mar, [facility] [place] [facility] [address] [facility] [id number] [place] [address]- 5206 Mar, [facility] [place] [facility] [address] [facility] [id number] [place] [address]- 4668 Feb, [facility] [place] [facility] [address] [id number] [place] [address]- 7818 Feb, [facility] [place] [facility] [address] [facility] [id number] [place] [address]- 4292 Feb, [facility] [place] [facility] [address] [facility] [id number] [place] [address]- 0228 Feb, [facility] [place] [facility] [address] [id number] [place] [address]- 9257 Feb, [facility] [place] [facility] [address] [id number] [place] [address]- 7858 Feb, [facility] [place] [facility] [address] [id number] [place] [address]- 1350 Feb, [facility] [place] [facility] [address] [id number] [place] [address]- 8502 Feb, [facility] [place] [facility] [address] [id number] [place] [address]- 5155 Feb, [facility] [place] [facility] [address] [id number] [place] [address]- 9218 Feb, [facility] [place] [facility] [address] [id number] [place] [address]- 8736 Jan, [facility] [place] [facility] [address] [id number] [place] [address]- 0812 Jan, [facility] [place] [facility] [address] [id number] [place] [address]- 6613 Jan, [facility] [place] [facility] [address] [id number] [place] [address]- 0294 Jan, [facility] [place] [facility] [address] [id number] [place] [address]- 9902 Jan, [facility] [place] [facility] [address] [id number] [place] [address]- 5886 Jan, [facility] [place] [facility] [address] [id number] [place] [address]- 5583 Jan, [facility] [place] [facility] [address] [id number] [place] [address]- 8947 Jan, [facility] [place] [facility] [address] [id number] [place] [address]- 3380 14 Dec, 2012 [facility] [place] [facility] [address] [id number] [address]- 6971 Dec, [facility] [place] [facility] [address] [id number] [place] [address]- 5026 Dec, [facility] [place] [facility] [address] [id number] [address] Dec, [facility] [place] [facility] [address] [id number] [place] [address]- 7776 Dec, [facility] [place] [facility] [address] [id number] [place] [address]- 1130 Dec, [facility] [place] [facility] [address] [id number] [place] [address]- 2134 Dec, [facility] [place] [facility] [address] [id number] [place] [address]- 2349 Dec, [facility] [place] [facility] [address] [id number] [address]- 2956 Nov, [facility] [place] [facility] [address] [id number] [place] [address]- 3363 Nov, [facility] [place] [facility] [address] [id number] [address]- 7896 Nov, [facility] [place] [facility] [address] [id number] [place] [address]- 9374 Nov, [facility] [place] [facility] [address] [id number] [place] [address]- 7870 Nov, [facility] [place] [facility] [address] [id number] [address]- 3609 Nov, [facility] [place] [facility] [address] [id number] [address]- 1726 Nov, [facility] [place] [facility] [address] [id number] [place] [address]- 8941 Oct, [facility] [place] [facility] [address] [id number] [place] [address]- 5657 10 Oct, 2012 [facility] [place] [facility] [address] [id number] [place] [address]- 5936 Oct, [facility] [address] [id number] [place] [address]- 9281 Sep, [facility] [place] [facility] [address] [id number] [place] [address]- 7456 Sep, [facility] [place] [facility] [address] [id number] [place] [address]- 3548 Sep, [facility] [place] [facility] [address] [id number] [place] [address]- 7562 Sep, [facility] [place] [facility] [address] [id number] [place] [address]- 7144 Aug, [facility] [place] [facility] [address] [id number] [place] [address]- 3496 Aug, [facility] [place] [facility] [address] [id number] [place] [address]- 9198 Aug, [facility] [address] [id number] [place] [address]- 9902 Aug, [facility] [place] [facility] [address] [id number] [place] [address]- 0975 Aug, [facility] [place] [facility] [address] [id number] [place] [address]- 8152 Jul, [facility] [place] [facility] [address] [id number] [place] [address]- 1370 Jul, [facility] [place] [facility] [address] [id number] [place] [address]- 6379 Jul, [facility] [place] [facility] [address] [id number] [place] [address]- 3058 Jul, [facility] [place] [facility] [address] [id number] [place] [address]- 2546 Jul, [facility] [place] [facility] [address] [id number] [place] [address]- 4368 June, [facility] [address] [id number] [place] [address]- 2741 June, [facility] [address] [id number] [place] [address]- 3897 June, [facility] [address] [id number] [place] [address]752 June, [facility] [address] [id number] [place] [address]- 4816 June, [facility] [address] [id number] [place] [address]- 6848 May, [facility] [address] [id number] [place] [address]- 8816 May, [facility] [address] [id number] [place] [address]- 6788 May, [facility] [address] [id number] [place] [address]- 6894 May, [facility] [address] [id number] [place] [address]- 6478 May, [facility] [address] [id number] [place] [address]- 3103 May, [facility] [address] [id number] [place] [address]- 9009 May, [facility] [place] [facility] [address] [id number] [address]- 6974 Apr, [facility] [place] [facility] [address] [id number] [place] [address]- 1484 Apr, [facility] [place] [facility] [address] [id number] [place] [address]- 7851 Apr, [facility] [place] [facility] [address] [id number] [place] [address]- 1707 Mar, [facility] [place] [facility] [address] [id number] [place] [address]- 7450 25 Mar, 2012 [facility] [address] [id number] [place] [address] 2546 20 Mar, 2012 [facility] [place] [facility] [address] [id number] [place] [address] 2546 19 Mar, 2012 [facility] [address] [id number] [place] [address] 2546 13 Mar, 2012 [facility] [address] [id number] [place] [address] 2546 13 Mar, 2012 [facility] [address] [id number] [place] [address] 2546 07 Mar, 2012 [facility] [address] [id number] [place] [address] 2547 07 Mar, 2012 [facility] [address] [id number] [place] [address] 2540 31 Feb, 2012 [facility] [address] [id number] [place] [address] 2543 29 Feb, 2012 [facility] [address] [id number] [place] [address] 28 Feb, 2012 [facility] [address] [facility] [id number] [place] [address] 26 Feb, 2012 [facility] [address] [id number] [place] [address] 2540 18 Feb, 2012 [facility] [address] [id number] [place] [address] 2544 15 Feb, 2012 [facility] [place] [facility] [address] [id number] [place] [address] 2546 14 Feb, 2012 [facility] [place] [facility] [address] [id number] [place] [address] 2546 Jan, [facility] [place] [facility] [address] [id number] [place] [address] Jan, [facility] [place] [facility] [address] [id number] [place] [address] 1310 Jan, [facility] [place] [facility] [address] [id number] [place] [address] Jan, [facility] [place] [facility] [address] [id number] [place] [address] Jan, [facility] [place] [facility] [address] [id number] [place] [address] Jan, [facility] [place] [facility] [address] [id number] [place] [address]- 2031 Jan, [facility] [place] [facility] [address] [id number] [place] [address]- [address] Jan, [facility] [place] [facility] [address] [id number] [place] [address]- 8085 Jan, [facility] [place] [facility] [address] [id number] [place] [address]- [address] Jan, [facility] [place] [facility] [address] [id number] [place] [address]- 4036 Jan, [facility] [place] [facility] [address] [id number] [place] [address]- 0942 Jan, [facility] [place] [facility] [address] [id number] [place] [address]- [address]99 Jan, [facility] [place] [facility] [address] [id number] [address] Jan, [facility] [place] [facility] [address] [id number] [place] [address]160 Dec, [facility] [place] [facility] [address] [id number] [place] [address]- [address] Dec, [facility] [place] [facility] [address] [id number] [place] [address]- 2069 Dec, [facility] [place] [facility] [address] [id number] [place] [address]- 8509 Dec, [facility] [place] [facility] [address] [id number] [place] [address]- [address]388 Dec, [facility] [place] [facility] [address] [id number] [place] [address] 1999 Dec, [facility] [place] [facility] [address] [id number] [place] [address]- 277[address] Dec, [facility] [place] [facility] [address] [id number] [place] [address]- 2547 Dec, [facility] [place] [facility] [address] [id number] [place] [address]- [address] Dec, [facility] [place] [facility] [address] [id number] [place] [address]- 1126 Dec, [facility] [place] [facility] [address] [id number] [place] [address]- [address]234 Dec, [facility] [place] [facility] [address] [id number] [place] [address]- 8518 Dec, [facility] [place] [facility] [address] [id number] [place] [address]- 1457 Dec, [facility] [place] [facility] [address] [facility] [id number] [place] [address]- 6024 Dec, [facility] [place] [facility] [address] [id number] [place] [address]- 7259 Dec, [facility] [place] [facility] [address] [id number] [address] Dec, [facility] [place] [facility] [address] [id number] [place] [address]- 1185 Dec, [facility] [place] [facility] [address] [id number] [place] [address]- 6467 Dec, [facility] [place] [facility] [address] [id number] [address] Dec, [facility] [place] [facility] [address] [id number] [place] [address]- 4463 Dec, [facility] [place] [facility] [address] [id number] [place] [address]- 3412 Nov, [facility] [place] [facility] [address] [id number] [place] [address]- 7406 Nov, [facility] [place] [facility] [address] [id number] [place] [address]- [address]3 Nov, [facility] [place] [facility] [address] [id number] [place] [address]- [address]6 Nov, [facility] [place] [facility] [address] [id number] [place] [address]- 5679 Nov, [facility] [place] [facility] [address] [id number] [place] [address]- 6656 Nov, [facility] [place] [facility] [address] [id number] [place] [address]- 5838 Nov, [facility] [place] [facility] [address] [id number] [place] [address]- 3757 Nov, [facility] [place] [facility] [address] [id number] [place] [address]- 1529 Nov, [facility] [place] [facility] [address] [id number] [place] [address]- 3117 Nov, [facility] [place] [facility] [address] [id number] [place] [address]- 2582 Nov, [facility] [place] [facility] [address] [id number] [place] [address]- 5783 Nov, [facility] [place] [facility] [address] [id number] [place] [address]- 0621 Nov, [facility] [place] [facility] [address] [id number] [place] [address]- 4275 Oct, [facility] [place] [facility] [address] [id number] [place] [address]- [address] 27 Oct, 2011 [facility] [place] [facility] [address] [id number] [place] [address]- [address]871 24 Oct, 2011 [facility] [place] [facility] [address] [id number] [place] [address]- [address]56 20 Oct, 2011 [facility] [place] [facility] [address] [id number] [place] [address]- 3956 Oct, [facility] [place] [facility] [address] [id number] [place] [address]- 9666 Oct, [facility] [place] [facility] [address] [id number] [place] [address]- 8740 Sep, [facility] [place] [facility] [address] [id number] [place] [address]- 1866 Sep, [facility] [place] [facility] [address] [id number] [place] [address]- 7955 Sep, [facility] [place] [facility] [address] [id number] [place] [address]- 0186 Sep, [facility] [place] [facility] [address] [id number] [place] [address]- 3091 Aug, [facility] [place] [facility] [address] [id number] [place] [address]- 288[address] Aug, [facility] [place] [facility] [address] [id number] [place] [address]- 1147 Aug, [facility] [place] [facility] [address] [id number] [place] [address]- 2537 Jul, [facility] [place] [facility] [address] [id number] [place] [address]- 7051 Jul, [facility] [place] [facility] [address] [id number] [place] [address]- 9314 Jul, [facility] [place] [facility] [address] [id number] [place] [address]- 2986 Jul, [facility] [place] [facility] [address] [id number] [place] [address]- 4269 June, [facility] [address] [id number] [place] [address] June, [facility] [address] [id number] [place] [address] June, [facility] [address] [id number] [place] [address] June, [facility] [address] [id number] [place] [address] June, [facility] [address] [id number] [place] [address] June, [facility] [address] [id number] [place] [address] May, [facility] [address] [id number] [place] [address] May, [facility] [address] [id number] [place] [address] May, [facility] [address] [id number] [place] [address] 24 May, 2011 [facility] [address] [id number] [place] [address] May, [facility] [address] [id number] [place] [address] 18 May, 2011 [facility] [address] [id number] [place] [address] May, [facility] [address] [id number] [place] [address] 05 May, 2011 [facility] [address] [id number] [place] [address] May, [facility] [address] [id number] [place] [address] Apr, [facility] [address] [id number] [place] [address] 29 Mar, 2011 [facility] [place] [facility] [address] [id number] [place] [address] Mar, [facility] [place] [facility] [address] [id number] [place] [address] Mar, [facility] [place] [facility] [address] [id number] [place] [address] Mar, [facility] [place] [facility] [address] [id number] [place] [address] Feb, [facility] [place] [facility] [address] [id number] [place] [address] Feb, [facility] [place] [facility] [address] [id number] [place] [address] Feb, [facility] [place] [facility] [address] [id number] [place] [address] Jan, [facility] [place] [facility] [address] [id number] [place] [address] Jan, [facility] [place] [facility] [address] [id number] [place] [address] Jan, [facility] [place] [facility] [address] [id number] [place] [address] Dec, [facility] [place] [facility] [address] [id number] [address] 28 Dec, 2010 [facility] [place] [facility] [address] [id number] [place] [address] 16 Dec, 2010 [facility] [place] [facility] [address] [id number] [place] [address] 15 Dec, 2010 [facility] [place] [facility] [address] [id number] [place] [address] 31 Nov, 2010 [facility] [place] [facility] [address] [id number] [place] [address] 31 Nov, 2010 [facility] [place] [facility] [address] [id number] [place] [address] 19 Nov, 2010 [facility] [place] [facility] [address] [id number] [place] [address] 18 Nov, 2010 [facility] [place] [facility] [address] [id number] [place] [address] 13 Oct, 2010 [facility] [place] [facility] [address] [id number] [place] [address] 20 Jul, 2010 [facility] [place] [facility] [address] [id number] [place] [address] Jan, [facility] [place] [facility] [address] [id number] [place] [address] Dec, [facility] [place] [facility] [address] [id number] [place] [address] Dec, [facility] [place] [facility] [address] [id number] [place] [address] Dec, [facility] [place] [facility] [address] [id number] [place] [address]- [address] Dec, [facility] [place] [facility] [address] [facility] [id number] [place] [address] Dec, [facility] [place] [facility] [address] [id number] [place] [address] Dec, [facility] [place] [facility] [address] [id number] [place] [address]- [address] Nov, [facility] [place] [facility] [address] [id number] [place] [address] Nov, [facility] [place] [facility] [address] [id number] [place] [address] Nov, [facility] [place] [facility] [address] [facility] [id number] [place] [address] Apr, [facility] [place] [facility] [address] [id number] [place] [address] 17 Apr, 2009 [facility] [place] [facility] [address] [id number] [place] [address] 29 Jan, 2009 [facility] [place] [facility] [address] [id number] [place] [address]- [address] Jan, [facility] [place] [facility] [address] [id number] [place] [address]- [address] Jan, [facility] [place] [facility] [address] [id number] [place] [address]- [address] 17 Jan, 2009 [facility] [place] [facility] [address] [id number] [place] [address]- [address] 14 Jan, 2009 [facility] [place] [facility] [address] [facility] [id number] [place] [address]- [address] Jan, [facility] [place] [facility] [address] [id number] [place] [address] 30 Dec, 2008 [facility] [place] [facility] [address] [id number] [place] [address]- [address] Dec, [facility] [place] [facility] [address] [id number] [place] [address] 18 Dec, 2008 [facility] [place] [facility] [address] [id number] [place] [address]- [address] Dec, [facility] [place] [facility] [address] [id number] [place] [address] Dec, [facility] [place] [facility] [address] [id number] [place] [address]- [address] Dec, [facility] [place] [facility] [address] [id number] [place] [address] 28 Nov, 2008 [facility] [place] [facility] [address] [id number] [place] [address]- 295[address] 27 Nov, 2008 [facility] [place] [facility] [address] [id number] [place] [address] 15 Aug, 2008 [facility] [address] [facility] [id number] [place] [address] 17 Jul, 2008 [facility] [address] [facility] [id number] [place] [address] June, [facility] [address] [facility] [id number] [place] [address] Apr, IMMUNIZATIONS No Known Immunizations SOCIAL HISTORY Never Assessed REASON FOR VISIT cayetanoonojessica refill PLAN OF CARE VITAL SIGNS MEDICATIONS Medication Instructions Dosage Frequency Start Date End Date Duration Status Clonazepam 0.5 MG Orally twice a day (part of taper) 0.5 tablet 30 days Active RESULTS No Results PROCEDURES No Known procedures INSTRUCTIONS MEDICATIONS ADMINISTERED No Known Medications MEDICAL [...] hip repair of loosened hardware/hip replacement ( [place] in [place]) 09/2008 Hospitalization History in pt rehab s/p left hip repair 09/2008-11/2008 Hospitalization History [facility] 07/2009
--- OUTSIDE RECORDS SUMMARY | 2017-10-26 13:34 | XMS REPORT ---
Author Author [place] [facility] Address [address] [place] [address] Care Team Providers Care Assistant Health Educator Name Role Phone KATHLEEN TRIANAY Unavailable PROBLEMS Type Condition ICD9-CM Code DZC43-CP Code Onset Dates Condition Status SNOMED Code Problem Generalized anxiety disorder F41.1 Active 406099651 Problem Seasonal allergic rhinitis due to other allergic trigger J30.89 Active 434926507 Problem Anxiety disorder, unspecified F41.9 Active 561843225 Problem 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 Active 700897276 Problem Meningioma D32.9 Active 102532390 Problem Generalized osteoarthritis M15.9 Active 437266479 Problem Dementia without behavioral disturbance, unspecified dementia type F03.90 Active 66284837 Problem Debility R53.81 Active 49315963 Problem At risk for falls Z91.81 Active 651054258 Problem Other chronic pain G89.29 Active 41011686 Problem Panic attacks F41.0 Active 984992602 Problem Acute drug withdrawal syndrome without complication F19.230 Active 383380240 Problem Anxiety F41.9 Active 30998899 ALLERGIES No Information ENCOUNTERS Encounter Location Date Diagnosis [facility] [id number], [place] [address] Nov, [facility] [address], [place] [address] Aug, [facility] [id number], [place] [address] Aug, Dementia without behavioral disturbance, unspecified dementia type F03.90 [facility] [id number], [place] [address] Aug, Dementia without behavioral disturbance, unspecified dementia type F03.90 and Anxiety F41.9 [facility] [facility] [address], [place] [address] Jul, Dementia without behavioral disturbance, unspecified dementia type F03.90 [facility] [id number] [place] [address] 40993- 0223 Jul, 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 ; Generalized osteoarthritis M15.9 ; Other chronic pain G89.29 ; At risk for falls Z91.81 and Debility R53.81 [facility] [id number] [place] [address] 83660- 5824 Jul, [facility] [id number] [place] [address] 97813- 3237 June, Dementia without behavioral disturbance, unspecified dementia type F03.90 [facility] [id number] [place] [address] 79447- 2743 June, [facility] [id number] [place] [address] 58627- 3769 June, [facility] [id number] [place] [address] 39811- 7457 June, [facility] [id number] [place] [address] 24463- 0743 June, Dementia without behavioral disturbance, unspecified dementia type F03.90 and Anxiety F41.9 [facility] [id number] [place] [address] 71008- 7489 May, [facility] [id number] [place] [address] 81061- 0499 May, [facility] [id number] [place] [address] 12317 -4347 May, Anxiety F41.9 ; Acute drug withdrawal syndrome without complication F19.230 and Abdominal pain, unspecified abdominal location R10.9 [facility] [address], [place] [address]- 3965 May, Panic attacks F41.0 [facility] [id number] [place] [address] 86462- 5793 May, Other chronic pain G89.29 and Generalized anxiety disorder F41.1 [facility] [id number] [place] [address] 66041- 4976 Apr, Housing problems Z59.9 and Panic attacks F41.0 [facility] [id number] [place] [address] 91501- 4816 Mar, Panic attacks F41.0 [facility] [id number] [place] [address] 22747- 3147 Feb, [facility] [address] 89406- 3030 Feb, Panic attacks F41.0 [facility] [id number] [place] [address] 54007- 1233 Feb, Pain in right knee M25.561 ; Pain in left knee M25.562 ; Other chronic pain G89.29 ; Housing problems Z59.9 ; Dementia without behavioral disturbance, unspecified dementia type F03.90 ; Generalized anxiety disorder F41.1 and Advance directive declined by patient Z78.9 [facility] [id number] [place] [address] 14487- 5832 Jan, Panic attacks F41.0 [facility] [id number] [place] [address] 44609- 5957 Jan, Panic attacks F41.0 [facility] [id number] [place] [address] 66939- 3346 Dec, Panic attacks F41.0 [facility] [address] 22339 -7402 Nov, Allergic contact dermatitis due to cosmetics L23.2 [facility] [id number] [place] [address] 38204- 6717 Nov, Panic attacks F41.0 [facility] [address] [place] [address]- 9472 08 Oct, 2016 Panic attacks F41.0 [facility] [id number] [place] [address] 46527- 2893 Sep, Panic attacks F41.0 ; Insect bite, initial encounter W57.XXXA and 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 [facility] [id number] [place] [address] 26504- 9904 Sep, [facility] [address] 76733- 7712 Aug, Generalized anxiety disorder F41.1 [place] [address] 93186- 5801 Jul, [facility] [id number] [place] [address] 77220 -8649 June, Seasonal allergic rhinitis due to other allergic trigger J30.89 [place] [id number] [place] [address] 64341- 6135 June, [facility] [id number] [place] [address] 33994- 3640 June, [facility] [id number] [place] [address] 70281 -2090 June, Dysuria R30.0 and RLQ abdominal pain R10.31 [place] [id number] [place] [address] 08311- 0031 May, Generalized anxiety disorder F41.1 ; Generalized osteoarthritis M15.9 and Dementia without behavioral disturbance, unspecified dementia type F03.90 [place] [id number] [place] [address] 18645- 1128 May, [facility] [id number] [place] [address] 27708- 6362 May, [place] [id number] [place] [address] 72337- 6905 May, [facility] [address], [place] [address]- 6969 Apr, [facility] [address] [place] [address], [place] [address]- 8371 Apr, Generalized anxiety disorder F41.1 [facility] [address] [place] [address]- 2884 Apr, [facility] [id number] [place] [address] 93951- 7580 Apr, [facility] [id number] [place] [address], [place] [address]- 8072 Apr, [facility] [address] [place] [address] 41331- 9137 Apr, Generalized anxiety disorder F41.1 [facility] [address] [place] [address] 00813- 9569 Mar, [facility] [address], [place] [address]- 5697 Mar, [facility] [address], [place] [address]- 2761 Mar, [facility] [address], [place] [address]- 1521 Mar, [facility] [address], [place] [address]- 8424 Mar, Generalized anxiety disorder F41.1 [facility] [address], [place] [address]- 1926 Feb, Anxiety disorder, unspecified F41.9 [facility] [address], [place] [address]- 4280 Feb, [facility] [address], [place] [address]- 9608 Feb, [facility] [address], [place] [address]- 3831 Feb, [facility] [address] [place] [address] 87716 -3916 Feb, Urinary frequency R35.0 and Acute cystitis without hematuria N30.00 [facility] [id number] [place] [address] 40830- 8539 Feb, [facility] [id number] [place] [address] 98807- 4132 Jan, [facility] [id number] [place] [address] 44971- 5040 Jan, [facility] [id number] [place] [address] 54601- 1190 Dec, [facility] [id number] [place] [address] 33123- 6316 Dec, [facility] [id number] [place] [address] 50741- 5732 Dec, Edema, unspecified type R60.9 [facility] [id number] [place] [address] 80196- 1608 Dec, [facility] [id number] [place] [address] 41814- 8053 Dec, [facility] [id number] [place] [address] 03619- 3645 30 Oct, 2015 Generalized anxiety disorder F41.1 [facility] [address] [place] [address] 22838- 8389 20 Oct, 2015 [facility] [id number] [place] [address] 15147- 4180 16 Oct, 2015 [facility] [id number] [place] [address] 25554- 3589 15 Oct, 2015 [facility] [address] [place] [address] 46790- 0701 06 Oct, 2015 [facility] [address], [place] [address]- 6625 Aug, Anxiety disorder, unspecified F41.9 [facility] [address], [place] [address]- 0520 Jul, Anxiety disorder, unspecified F41.9 [facility] [address] [place] [address]- 8165 Jul, Generalized anxiety disorder F41.1 [facility] [address], [place] [address]- 4858 Jul, [facility] [address] [place] [address] 80233- 1316 June, [facility] [address] [place] [address] 36552- 6677 June, [facility] [id number] [place] [address] 43023- 2346 June, [facility] [address], [place] [address]- 3969 June, [facility] [address] [place] [address] 94368- 4836 May, [facility] [address], [place] [address] -9937 May, Dementia without behavioral disturbance, unspecified dementia type F03.90 and Generalized osteoarthritis M15.9 [facility] [address], [place] [address]- 0149 May, Generalized osteoarthritis M15.9 and 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 [facility] [address], [place] [address]- 7783 Apr, [facility] [address], [place] [address]- 5315 Apr, [facility] [address], [place] [address]- 3971 Apr, [place] [id number] [place] [address] 60552- 2404 Mar, [facility] [address] 75749- 0030 Mar, [place] [address] 66682- 3998 Mar, Generalized anxiety disorder F41.1 [place] [address] 51252- 8132 Feb, Other infective acute otitis externa of right ear H60.[address] 51426- 0034 Dec, Dysuria R30.0 ; Generalized osteoarthritis M15.9 and Gastroesophageal reflux disease, esophagitis presence not specified K21.[address] 08166- 9243 Dec, [place] [address] 97425- 1837 Dec, Generalized anxiety disorder F41.1 ; Encounter for immunization Z23 and Dementia F03.90 [place] [id number] [place] [address] 45394- 9938 Nov, [facility] [place] [id number] [place] [address] 36931- 9563 Oct, [facility] [address] 73270- 5656 24 Oct, 2014 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 ; Chronic pain 338.29 ; Anxiety 300.00 and Dementia 294.[address] 40425- 5406 Oct, [facility] [id number] [place] [address] 63281- 2085 Aug, Generalized anxiety disorder 300.02 and Dementia 294.20 [facility] [address], [place] [address]- 8296 Aug, [facility] [address], [place] [address]- 5939 Aug, Anxiety 300.00 and Chronic pain 338.29 [facility] [address], [place] [address]- 7747 Jul, [facility] [id number] [place] [address] 26397- 9866 Jul, [facility] [address], [place] [address]- 5069 June, [facility] [id number] [place] [address] 30795- 8716 June, Anxiety, generalized 300.02 ; Dementia 294.20 and No condition on Mcclure II V71.09 [facility] [id number], [place] [address]- 6752 May, [facility] [address], [place] [address]- 3001 May, [facility] [address], [place] [address]- 3086 Apr, [facility] [address], [place] [address]- 0344 Apr, [facility] [address], [place] [address]- 1806 Apr, [facility] [address], [place] [address]- 6819 Apr, [facility] [address], [place] [address]- 9998 Apr, [facility] [id number], [place] [address]- 2546 Apr, [facility] [address] 9876 Apr, [facility] [place] [facility] [address] [id number] [place] [address]- 3244 Apr, [facility] [place] [facility] [address] [id number] [place] [address]- 3529 Apr, [facility] [place] [facility] [address] [id number] [place] [address]- 0036 Apr, [facility] [place] [facility] [address] [id number] [place] [address]- 8066 Apr, [facility] [place] [facility] [address] [id number] [place] [address]- 4024 Apr, [facility] [place] [facility] [address] [id number] [place] [address]- 3444 Apr, [facility] [place] [facility] [address] [id number] [place] [address]- 6299 Apr, [facility] [place] [facility] [address] [id number] [place] [address]- 8185 Apr, [facility] [place] [facility] [address] [id number] [place] [address]- 3458 Apr, [facility] [place] [facility] [address] [id number] [place] [address]- 2023 Mar, 2014 [facility] [place] [facility] [address] [id number] [address]- 2841 Mar, 2014 [facility] [place] [facility] [address] [id number], [place] [address]- 4323 Mar, 2014 [facility] [place] [facility] [address] [id number] [place] [address]- 5498 Mar, 2014 [facility] [place] [facility] [address] [id number] [place] [address]- 8067 Mar, 2014 [facility] [place] [facility] [address] [id number] [place] [address]- 2554 Mar, 2014 [facility] [place] [facility] [address] [id number] [place] [address]- 9166 23 Mar, 2014 [facility] [place] [facility] [address] [id number] [place] [address]- 0886 23 Mar, 2014 [facility] [place] [facility] [address] [id number] [place] [address]- 2546 20 Mar, 2014 [facility] [place] [facility] [address] [id number] [place] [address]- 3189 20 Mar, 2014 [facility] [place] [facility] [address] [id number] [place] [address]- 2545 18 Mar, 2014 [facility] [place] [facility] [address] [id number] [place] [address]- 4091 18 Mar, 2014 [facility] [place] [facility] [address] [facility] [id number] [place] [address]- 0068 17 Mar, 2014 [facility] [place] [facility] [address] [facility] [id number] [place] [address]- 1599 17 Mar, 2014 [facility] [place] [facility] [address] [facility] [id number] [place] [address]- 2628 17 Mar, 2014 [facility] [place] [facility] [address] [facility] [id number] [place] [address]- 2487 17 Mar, 2014 [facility] [place] [facility] [address] [facility] [id number] [place] [address]- 1592 13 Mar, 2014 [facility] [place] [facility] [address] [facility] [id number] [address]- 3012 13 Mar, 2014 [facility] [place] [facility] [address] [facility] [id number] [place] [address]- 2541 13 Mar, 2014 [facility] [place] [facility] [address] [facility] [id number] [place] [address]- 9169 13 Mar, 2014 [facility] [place] [facility] [address] [facility] [id number] [place] [address]- 0155 12 Mar, 2014 [facility] [place] [facility] [address] [facility] [id number] [place] [address]- 0918 12 Mar, 2014 [facility] [place] [facility] [address] [id number] [place] [address]- 5516 Mar, 2014 [facility] [place] [facility] [address] [id number] [place] [address]- 2546 Mar, 2014 [facility] [place] [facility] [address] [id number] [place] [address]- 0136 Mar, [facility] [place] [facility] [address] [id number] [place] [address]- 2545 Mar, [facility] [place] [facility] [address] [id number] [place] [address]- 8661 Feb, [facility] [place] [facility] [address] [id number] [place] [address]- 2804 Feb, [facility] [place] [facility] [address] [id number] [place] [address]- 5308 Feb, [facility] [place] [facility] [address] [id number] [place] [address]- 7003 Feb, [facility] [place] [facility] [address] [id number] [place] [address]- 1202 Feb, [facility] [place] [facility] [address] [facility] [id number] [place] [address]- 3364 Feb, [facility] [place] [facility] [address] [id number] [place] [address]- 2547 Feb, [facility] [place] [facility] [address] [id number] [place] [address]- 2541 Feb, [facility] [place] [facility] [address] [id number] [place] [address]- 7556 Feb, [facility] [place] [facility] [address] [id number] [place] [address]- 0767 Feb, [facility] [place] [facility] [address] [id number] [place] [address]- 2347 Feb, [facility] [place] [facility] [address] [id number] [place] [address]- 3829 Feb, [facility] [place] [facility] [address] [id number] [place] [address]- 5815 Feb, [facility] [place] [facility] [address] [id number] [place] [address]- 8043 Feb, [facility] [place] [facility] [address] [id number] [place] [address]- 3478 Feb, [facility] [place] [facility] [address] [id number] [place] [address]- 3105 Jan, [facility] [place] [facility] [address] [id number] [place] [address]- 2272 Jan, [facility] [place] [facility] [address] [id number] [place] [address]- 6780 Jan, [facility] [place] [facility] [address] [id number] [place] [address] Jan, [facility] [place] [facility] [address] [id number] [place] [address] Jan, [facility] [place] [facility] [address] [id number] [place] [address] Jan, [facility] [place] [facility] [address] [id number] [place] [address] Jan, [facility] [place] [facility] [address] [id number] [place] [address] Jan, [facility] [place] [facility] [address] [id number] [place] [address] Jan, [facility] [place] [facility] [address] [id number] [place] [address] Jan, [facility] [place] [facility] [address] [id number] [place] [address] Jan, [facility] [place] [facility] [address] [id number], [place] [address] Jan, [facility] [place] [facility] [address] [id number] [place] [address] Jan, [facility] [place] [facility] [address] [facility] [id number] [place] [address] Jan, [facility] [place] [facility] [address] [id number] [place] [address] Jan, [facility] [place] [facility] [address] [id number] [place] [address] Jan, [facility] [place] [facility] [address] [id number] [place] [id number] Jan, [facility] [place] [facility] [address] [id number] [place] [address] Jan, [facility] [place] [facility] [address] [id number] [address] [address] Jan, [facility] [place] [facility] [address] [id number] [place] [address] Jan, [facility] [place] [facility] [address] [id number] [place] [address] Dec, [facility] [place] [facility] [address] [id number] [place] [address] Dec, [facility] [place] [facility] [address] [id number] [place] [address] Dec, [facility] [place] [facility] [address] [id number], [place] [address] Dec, [facility] [place] [facility] [address] [id number] [place] [address] Dec, [facility] [place] [facility] [address] [id number] [place] [address] Dec, [facility] [place] [facility] [address] [facility] [id number] [place] [address] Dec, [facility] [place] [facility] [address] [id number] [place] [address] Nov, [facility] [place] [facility] [address] [id number] [place] [address] Nov, [facility] [place] [facility] [address] [id number] [place] [address] Nov, [facility] [place] [facility] [address] [id number] [place] [address] Nov, [facility] [place] [facility] [address] [id number] [place] [address] Nov, [facility] [place] [facility] [address] [id number] [place] [address] Nov, [facility] [place] [facility] [address] [id number] [place] [address] Nov, [facility] [place] [facility] [address] [id number] [place] [address] Nov, [facility] [place] [facility] [address] [id number] [place] [address] Nov, [facility] [place] [facility] [address] [id number] [place] [address] Nov, [facility] [place] [facility] [address] [id number] [place] [address]- [address] 29 Oct, 2013 [facility] [place] [facility] [address] [id number] [place] [address] 29 Oct, 2013 [facility] [place] [facility] [address] [id number] [place] [address]43 15 Oct, 2013 [facility] [place] [facility] [address] [id number] [place] [address] 2546 15 Oct, 2013 [facility] [place] [facility] [address] [id number] [place] [address] 2543 15 Oct, 2013 [facility] [place] [facility] [address] [id number] [place] [address]- 1599 15 Oct, 2013 [facility] [place] [facility] [address] [id number] [place] [address]- 4561 10 Oct, 2013 [facility] [place] [facility] [address] [id number] [place] [address] 7843 10 Oct, 2013 [facility] [place] [facility] [address] [id number] [place] [address] 8297 Oct, [facility] [place] [facility] [address] [id number] [place] [address] 7744 Oct, [facility] [place] [facility] [address] [id number] [place] [address]- 5761 Sep, [facility] [place] [facility] [address] [id number] [place] [address]- 8294 Sep, [facility] [place] [facility] [address] [id number] [place] [address]- 2814 Sep, [facility] [place] [facility] [address] [id number] [place] [address]- 0968 Sep, [facility] [place] [facility] [address] [id number] [place] [address]- 9905 Sep, [facility] [place] [facility] [address] [id number] [place] [address] Sep, [facility] [place] [facility] [address] [id number] [place] [address]- 1109 Sep, [facility] [place] [facility] [address] [id number] [place] [address]- 2893 Sep, [facility] [place] [facility] [address] [id number] [place] [address]- 4881 Sep, [facility] [place] [facility] [address] [id number] [place] [address]- 2815 Sep, [facility] [place] [facility] [address] [id number] [place] [address]- 8981 Aug, [facility] [place] [facility] [address] [id number] [place] [address]- 7560 Aug, [facility] [place] [facility] [address] [id number] [place] [address] 6103 Aug, [facility] [place] [facility] [address] [id number] [place] [address]- 1365 Aug, [facility] [place] [facility] [address] [id number] [place] [address]- 4538 Aug, [facility] [place] [facility] [address] [id number] [place] [address]- 2157 Aug, [facility] [place] [facility] [address] [id number] [place] [address]- 6647 Aug, [facility] [place] [facility] [address] [id number] [place] [address]- 6954 Aug, [facility] [place] [facility] [address] [id number] [place] [address]- 3206 Aug, [facility] [place] [facility] [address] [id number] [place] [address]- 7681 Aug, [facility] [place] [facility] [address] [id number] [place] [address]- 6223 Aug, [facility] [place] [facility] [address] [id number] [place] [address]- 4844 Aug, [facility] [place] [facility] [address] [id number] [place] [address]- 3470 Jul, [facility] [place] [facility] [address] [id number] [place] [address]- 5647 Jul, [facility] [place] [facility] [address] [id number] [place] [address]- 3962 Jul, [facility] [place] [facility] [address] [id number] [place] [address]- 0019 Jul, [facility] [place] [facility] [address] [id number] [place] [address]- 7717 Jul, [facility] [place] [facility] [address] [id number] [place] [address]- 6776 Jul, [facility] [place] [facility] [address] [id number] [place] [address]- 8280 17 Jul, 2013 [facility] [place] [facility] [address] [id number] [place] [address]- 7954 Jul, [facility] [place] [facility] [address] [id number] [place] [address]- 9305 Jul, [facility] [place] [facility] [address] [id number] [place] [address]- 8538 Jul, [facility] [place] [facility] [address] [id number] [place] [address]- 7640 Jul, [facility] [place] [facility] [address] [id number] [place] [address]- 7142 Jul, [facility] [place] [facility] [address] [id number] [place] [address]- 1356 Jul, [facility] [place] [facility] [address] [id number] [place] [address]- 0099 Jul, [facility] [place] [facility] [address] [id number] [place] [address]- 4370 Jul, [facility] [place] [facility] [address] [id number] [place] [address]- 0411 Jul, [facility] [place] [facility] [address] [id number] [place] [address]- 3963 Jul, [facility] [place] [facility] [address] [id number] [place] [address]- 0563 June, [facility] [place] [facility] [address] [id number] [place] [address]- 0357 June, [facility] [place] [facility] [address] [id number] [place] [address]- 3460 June, [facility] [place] [facility] [address] [id number] [place] [address]- 6417 June, [facility] [place] [facility] [address] [id number] [place] [address]- 3269 June, [facility] [place] [facility] [address] [id number] [place] [address]- 5485 June, [facility] [place] [facility] [address] [id number] [place] [address]- 1657 June, [facility] [place] [facility] [address] [id number] [place] [address]- 5304 June, [facility] [place] [facility] [address] [id number] [place] [address]- 1676 June, [facility] [place] [facility] [address] [id number] [place] [address]- 9670 June, [facility] [place] [facility] [address] [id number] [place] [address]- 0401 June, [facility] [place] [facility] [address] [id number] [place] [address]- 9097 June, [facility] [place] [facility] [address] [id number] [place] [address]- 9529 June, [facility] [place] [facility] [address] [id number] [place] [address]- 0632 June, [facility] [place] [facility] [address] [id number] [place] [address]- 0633 June, [facility] [place] [facility] [address] [id number] [place] [address]- 6405 June, [facility] [place] [facility] [address] [id number] [place] [address]- 7029 June, [facility] [place] [facility] [address] [id number] [place] [address]- 2302 June, [facility] [place] [facility] [address] [id number] [place] [address]- 5970 June, [facility] [place] [facility] [address] [id number] [place] [address]- 7543 June, [facility] [address] [id number] [place] [address]- 0926 June, [facility] [address] [id number] [place] [address]- 7432 June, [facility] [address] [id number] [place] [address]- 2224 June, [facility] [address] [id number] [place] [address]- 8957 June, [facility] [address] [id number] [place] [address]- 8948 June, [facility] [address] [id number] [place] [address]- 8831 June, [facility] [address] [id number] [place] [address]- 8723 June, [facility] [address] [id number] [place] [address]- 7170 June, [facility] [address] [id number] [place] [address]- 0546 June, [facility] [address] [id number] [place] [address]- 8352 June, [facility] [address] [id number] [place] [address]- 4172 June, [facility] [address] [id number] [place] [address]- 4212 June, [facility] [address] [id number] [place] [address]- 4373 May, [facility] [address] [id number] [place] [address]- 2039 May, [facility] [address] [id number] [place] [address]- 1563 May, [facility] [place] [facility] [address] [id number] [place] [address]- 1808 May, [facility] [place] [facility] [address] [id number] [place] [address]- 7376 May, [facility] [place] [facility] [address] [id number] [place] [address]- 3897 May, [facility] [place] [facility] [address] [id number] [place] [address]- 5380 May, [facility] [place] [facility] [address] [id number] [place] [address]- 7303 May, [facility] [place] [facility] [address] [id number] [place] [address]- 2363 May, [facility] [place] [facility] [address] [id number] [place] [address]- 4661 May, [facility] [place] [facility] [address] [id number] [place] [address]- 7980 May, [facility] [place] [facility] [address] [id number] [place] [address]- 7553 May, [facility] [place] [facility] [address] [id number] [place] [address]- 2757 May, [facility] [place] [facility] [address] [id number] [place] [address]- 0574 May, [facility] [place] [facility] [address] [id number] [place] [address]- 2910 May, [facility] [place] [facility] [address] [id number] [place] [address]- 2393 Apr, [facility] [place] [facility] [address] [id number] [place] [address]- 1217 Apr, [facility] [place] [facility] [address] [id number] [place] [address]- 0441 Apr, [facility] [place] [facility] [address] [id number] [place] [address]- 1494 Apr, [facility] [place] [facility] [address] [id number] [place] [address]- 5846 Apr, [facility] [place] [facility] [address] [id number] [place] [address]- 1586 Apr, [facility] [place] [facility] [address] [id number] [place] [address]- 6586 Mar, [facility] [place] [facility] [address] [id number] [place] [address]- 1969 Mar, [facility] [place] [facility] [address] [id number] [place] [address]- 6282 Mar, [facility] [place] [facility] [address] [id number] [place] [address]- 5278 Mar, [facility] [place] [facility] [address] [id number] [place] [address]- 2291 Mar, [facility] [place] [facility] [address] [id number] [place] [address]- 2988 Mar, [facility] [place] [facility] [address] [id number] [place] [address]- 1533 Mar, [facility] [place] [facility] [address] [facility] [id number] [place] [address]- 7266 Mar, [facility] [place] [facility] [address] [id number] [place] [address]- 5389 Feb, [facility] [place] [facility] [address] [id number] [place] [address]- 3704 Feb, [facility] [place] [facility] [address] [id number] [place] [address]- 5533 Feb, [facility] [place] [facility] [address] [id number] [place] [address]- 2451 Feb, [facility] [place] [facility] [address] [id number] [place] [address]- 0104 Feb, [facility] [place] [facility] [address] [id number] [place] [address]- 2303 Feb, [facility] [place] [facility] [address] [id number] [place] [address]- 8678 Feb, [facility] [place] [facility] [address] [id number] [place] [address]- 0247 Feb, [facility] [place] [facility] [address] [id number] [place] [address]- 0563 Feb, [facility] [address] [id number] [place] [address]- 2796 Feb, [facility] [place] [facility] [address] [id number] [place] [address]- 2988 Jan, [facility] [place] [facility] [address] [id number] [place] [address]- 8398 Jan, [facility] [place] [facility] [address] [id number] [place] [address]- 6906 Jan, [facility] [place] [facility] [address] [id number] [place] [address]- 4611 Jan, [facility] [place] [facility] [address] [id number] [place] [address]- 5798 Jan, [facility] [place] [facility] [address] [id number] [place] [address]- 2092 Jan, [facility] [place] [facility] [address] [id number] [place] [address]- 5897 Jan, [facility] [place] [facility] [address] [id number] [place] [address]- 0403 Jan, [facility] [place] [facility] [address] [id number] [place] [address]- 0427 Dec, [facility] [place] [facility] [address] [id number] [place] [address]- 7429 Dec, [facility] [place] [facility] [address] [id number], [place] [address]- 8189 Dec, [facility] [place] [facility] [address] [id number] [place] [address]- 1800 Dec, [facility] [place] [facility] [address] [id number] 5940 Dec, [facility] [place] [facility] [address] [id number] [place] [address]- 6430 Dec, [facility] [place] [facility] [address] [id number] [place] [address]- 1799 Dec, [facility] [place] [facility] [address] [id number] [place] [address]- 9597 Dec, [facility] [place] [facility] [address] [id number] [place] [address]- 9641 Nov, [facility] [place] [facility] [address] [id number] [place] [address]- 2275 Nov, [facility] [place] [facility] [address] [id number] [place] [address]- 2090 Nov, [facility] [place] [facility] [address] [id number], [place] [address]- 6363 Nov, [facility] [place] [facility] [address] [id number], [place] [address]- 6062 Nov, [facility] [place] [facility] [address] [id number], [place] [address]- 0784 Nov, [facility] [place] [facility] [address] [id number], [place] [address]- 1026 07 Nov, 2012 [facility] [place] [facility] [address] [id number], [place] [address]- 5005 10 Oct, 2012 [facility] [place] [facility] [address] [id number] [place] [address]- 6234 10 Oct, 2012 [facility] [place] [facility] [address] [id number] [place] [address]- 5821 05 Oct, 2012 [facility] [place] [facility] [address] [id number] [place] [address]- 6831 Sep, [facility] [address] [id number] [place] [address]- 2356 Sep, [facility] [place] [facility] [address] [id number] [place] [address]- 5716 Sep, [facility] [place] [facility] [address] [id number] [place] [address]- 0236 Sep, [facility] [place] [facility] [address] [id number] [place] [address]- 5690 Aug, [facility] [place] [facility] [address] [id number] [place] [address]- 0114 Aug, [facility] [place] [facility] [address] [id number] [place] [address]- 8942 Aug, [facility] [place] [facility] [address] [id number] [place] [address]- 0349 Aug, [facility] [address] [id number] [place] [address]- 5520 Aug, [facility] [place] [facility] [address] [id number] [place] [address]- 2234 Jul, [facility] [place] [facility] [address] [id number] [place] [address]- 5471 Jul, [facility] [place] [facility] [address] [id number] [place] [address]- 7731 Jul, [facility] [place] [facility] [address] [id number] [place] [address]- 5067 Jul, [facility] [place] [facility] [address] [id number] [place] [address]- 8284 Jul, [facility] [place] [facility] [address] [id number] [place] [address]- 6916 June, [facility] [place] [facility] [address] [id number] [place] [address]- 1788 June, [facility] [address] [id number] [place] [address]- 6782 June, [facility] [address] [id number] [place] [address]- 0493 June, [facility] [address] [id number] [place]201 June, [facility] [address] [id number] [place] [address]- 2175 May, [facility] [address] [id number] [place] [address]- 0412 May, [facility] [address] [id number] [place] [address]- 8366 May, [facility] [address] [id number] [place] [address]- 9991 May, [facility] [address] [id number] [place] [address]- 9266 May, [facility] [address] [id number] [place] [address]- 7513 May, [facility] [address] [id number] [place] [address]- 3035 May, [facility] [place] [facility] [address] [id number] [place] [address]- 8150 Apr, [facility] [place] [facility] [address] [id number], [place] [address]- 7129 Apr, [facility] [place] [facility] [address] [id number] [place] [address]- 7752 Apr, [facility] [place] [facility] [address] [id number] [place] [address]- 7214 Mar, [facility] [place] [facility] [address] [id number] [place] [address]- 7473 Mar, [facility] [place] [facility] [address] [id number] [place] [address]- 0965 20 Mar, 2012 [facility] [address] [id number] [place] [address]- 2566 19 Mar, 2012 [facility] [address] [id number] [place] [address] 2546 13 Mar, 2012 [facility] [address] [id number] [place] [address] 2546 13 Mar, 2012 [facility] [address] [id number] [place] [address] 2545 07 Mar, 2012 [facility] [address] [id number] [place] [address]- 9816 07 Mar, 2012 [facility] [address] [id number] [place] [address]- 5030 31 Feb, 2012 [facility] [address] [id number] [place] [address]- 1555 29 Feb, 2012 [facility] [address] [id number] [place] [address]- 2945 Feb, [facility] [address] [id number] [place] [address]- 4214 Feb, [facility] [address] [id number] [place] [address]- 3858 18 Feb, 2012 [facility] [address] [id number] [place] [address] 2541 15 Feb, 2012 [facility] [address] [id number] [place] [address] 2541 14 Feb, 2012 [facility] [place] [facility] [address] [id number] [place] [address] 2546 Jan, [facility] [place] [facility] [address] [id number] [place] [address] 2546 Jan, [facility] [address] [id number] [place] [address]- 8566 Jan, [facility] [place] [facility] [address] [id number] [place] [address]- 4316 Jan, [facility] [place] [facility] [address] [id number] [place] [address]- 4296 Jan, [facility] [place] [facility] [address] [id number] [place] [address]- 6416 Jan, [facility] [place] [facility] [address] [id number] [place] [address]- 5022 Jan, [facility] [place] [facility] [address] [id number] [place] [address]- 0548 Jan, [facility] [place] [facility] [address] [id number] [place] [address]- 8185 Jan, [facility] [place] [facility] [address] [id number] [place] [address] Jan, [facility] [place] [facility] [address] [id number] [place] [address] Jan, [facility] [place] [facility] [address] [id number] [place] [address] Jan, [facility] [place] [facility] [address] [id number] [place] [address] Jan, [facility] [place] [facility] [address] [id number] [place] [address] Jan, [facility] [place] [facility] [address] [id number] [address] Dec, [facility] [place] [facility] [address] [id number] [place] [address] Dec, [facility] [place] [facility] [address] [id number] [place] [address] Dec, [facility] [place] [facility] [address] [id number] [place] [address] Dec, [facility] [place] [facility] [address] [id number] [place] [address] Dec, [facility] [place] [facility] [address] [id number] [place] [address]- [address] Dec, [facility] [place] [facility] [address] [id number] [place] [address] Dec, [facility] [place] [facility] [address] [id number] [place] [address]- [address]28 Dec, [facility] [place] [facility] [address] [id number] [place] [address]- [address] Dec, [facility] [place] [facility] [address] [id number] [place] [address]- [address]68 Dec, [facility] [place] [facility] [address] [id number] [place] [address] 285[address] Dec, [facility] [place] [facility] [address] [id number] [place] [address]- [address] Dec, [facility] [place] [facility] [address] [id number] [place] [address]- [address] Dec, [facility] [place] [facility] [address] [id number] [place] [address]- [address] Dec, [facility] [place] [facility] [address] [id number] [place] [address]- [address] Dec, [facility] [place] [facility] [address] [id number] [place] [address]- [address] Dec, [facility] [place] [facility] [address] [id number] [place] [address]- [address] Dec, [facility] [place] [facility] [address] [id number] [place] [address]- [address] Dec, [facility] [place] [facility] [address] [id number] [place] [address]- [address] Dec, [facility] [place] [facility] [address] [id number] [place] [address]- [address] Dec, [facility] [place] [facility] [address] [id number] [place] [address]- [address] 31 Nov, 2011 [facility] [place] [facility] [address] [id number] [place] [address]- [address] 31 Nov, 2011 [facility] [place] [facility] [address] [id number] [place] [address] 30 Nov, 2011 [facility] [place] [facility] [address] [id number] [place] [address] Nov, [facility] [place] [facility] [address] [id number] [place] [address]- [address] Nov, [facility] [place] [facility] [address] [id number] [place] [address]- [address] 24 Nov, 2011 [facility] [place] [facility] [address] [id number] [place] [address] Nov, [facility] [place] [facility] [address] [id number] [place] [address]- [address] 15 Nov, 2011 [facility] [place] [facility] [address] [id number] [place] [address]- 94[address] Nov, [facility] [place] [facility] [address] [id number] [place] [address]- [address] Nov, [facility] [place] [facility] [address] [id number] [place] [address] Nov, [facility] [place] [facility] [address] [id number] [place] [address] Nov, [facility] [place] [facility] [address] [id number] [place] [address] 1998 Nov, [facility] [place] [facility] [address] [id number] [place] [address] 30 Oct, 2011 [facility] [place] [facility] [address] [id number] [place] [address]- [address] 27 Oct, 2011 [facility] [place] [facility] [address] [id number] [place] [address]- [address] 24 Oct, 2011 [facility] [place] [facility] [address] [id number] [place] [address]- [address] 20 Oct, 2011 [facility] [place] [facility] [address] [id number] [place] [address]- [address] Oct, [facility] [place] [facility] [address] [id number] [place] [address] Oct, [facility] [place] [facility] [address] [id number] [place] [address] Sep, [facility] [place] [facility] [address] [id number] [place] [address]- [address] Sep, [facility] [place] [facility] [address] [id number] [place] [address]- [address] Sep, [facility] [place] [facility] [address] [id number] [place] [address] Sep, [facility] [place] [facility] [address] [id number] [place] [address]- [address] Aug, [facility] [place] [facility] [address] [id number] [place] [address]- [address] Aug, [facility] [place] [facility] [address] [id number] [place] [address]- 8583 Aug, [facility] [place] [facility] [address] [id number] [place] [address]- [address] Jul, [facility] [place] [facility] [address] [id number] [place] [address]- [address] Jul, [facility] [place] [facility] [address] [id number] [place] [address]- [address] Jul, [facility] [place] [facility] [address] [id number] [place] [address]- [address] Jul, [facility] [place] [facility] [address] [id number] [place] [address]- [address] June, [facility] [place] [facility] [address] [id number] [place] [address]- [address] June, [facility] [address] [id number] [place] [address] June, [facility] [address] [id number] [place] [address]32 June, [facility] [address] [id number] [place] [address] June, [facility] [address] [id number] [place] [address]- [address] June, [facility] [address] [id number] [place] [address]- 278[address] May, [facility] [address] [id number] [place] [address]- [address]779 May, [facility] [address] [id number] [place] [address]- 85[address] May, [facility] [address] [id number] [place] [address]- 1242 May, [facility] [address] [id number] [place] [address]- [address] May, [facility] [address] [id number] [place] [address] May, [facility] [address] [id number] [place] [address] May, [facility] [address] [id number] [place] [address] May, [facility] [place] [facility] [address] [id number] [place] [address] May, [facility] [address] [id number] [place] [address] Apr, [facility] [address] [id number] [place] [address] Mar, [facility] [address] [id number] [place] [address] 27 Mar, 2011 [facility] [place] [facility] [address] [id number] [place] [address] 21 Mar, 2011 [facility] [place] [facility] [address] [id number] [place] [address] 10 Mar, 2011 [facility] [place] [facility] [address] [id number] [place] [address] Feb, [facility] [place] [facility] [address] [id number] [place] [address] Feb, [facility] [place] [facility] [address] [id number] [place] [address] Feb, [facility] [place] [facility] [address] [id number] [place] [address] Jan, [facility] [place] [facility] [address] [id number] [place] [address] Jan, [facility] [place] [facility] [address] [id number] [place] [address] Jan, [facility] [place] [facility] [address] [id number] [address] 29 Dec, 2010 [facility] [place] [facility] [address] [id number], [place] [address] Dec, [facility] [place] [facility] [address] [id number], [place] [address] 16 Dec, 2010 [facility] [place] [facility] [address] [id number] [place] [address] 15 Dec, 2010 [facility] [place] [facility] [address] [id number], [place] [address] 31 Nov, 2010 [facility] [place] [facility] [address] [id number] [place] [address] 31 Nov, 2010 [facility] [place] [facility] [address] [id number] [place] [address]184 19 Nov, 2010 [facility] [place] [facility] [address] [id number] [place] [address] 18 Nov, 2010 [facility] [place] [facility] [address] [id number] [place] [address] 13 Oct, 2010 [facility] [place] [facility] [address] [id number] [place] [address] 20 Jul, 2010 [facility] [place] [facility] [address] [id number] [place] [address] Jan, [facility] [place] [facility] [address] [id number] [place] [address] 30 Dec, 2009 [facility] [place] [facility] [address] [id number] [place] [address] Dec, [facility] [place] [facility] [address] [id number] [place] [address] Dec, [facility] [place] [facility] [address] [id number] [place] [address] Dec, [facility] [place] [facility] [address] [id number] [place] [address] Dec, [facility] [place] [facility] [address] [facility] [id number] [place] [address] Dec, [facility] [place] [facility] [address] [id number] [place] [address] Nov, [facility] [place] [facility] [address] [id number] [place] [address] Nov, [facility] [place] [facility] [address] [id number] [place] [address] Nov, [facility] [place] [facility] [address] [id number] [place] [address] Apr, [facility] [place] [facility] [address] [facility] [id number] [place] [address] Apr, [facility] [place] [facility] [address] [id number] [place] [address] 29 Jan, 2009 [facility] [place] [facility] [address] [id number] [place] [address] 28 Jan, 2009 [facility] [place] [facility] [address] [id number] [place] [address] 23 Jan, 2009 [facility] [place] [facility] [address] [id number] [place] [address]46 17 Jan, 2009 [facility] [place] [facility] [address] [id number] [place] [address] 14 Jan, 2009 [facility] [place] [facility] [address] [id number] [place] [address] Jan, [facility] [place] [facility] [address] [id number] [place] [address] 30 Dec, 2008 [facility] [place] [facility] [address] [id number] [place] [address] Dec, [facility] [place] [facility] [address] [id number] [place] [address] 18 Dec, 2008 [facility] [place] [facility] [address] [id number] [place] [address] Dec, [facility] [place] [facility] [address] [facility] [id number] [place] [address] Dec, [facility] [place] [facility] [address] [id number], [place] [address] Dec, [facility] [place] [facility] [address] [id number] [place] [address] 28 Nov, 2008 [facility] [place] [facility] [address] [id number] [place] [address]46 27 Nov, 2008 [facility] [place] [facility] [address] [id number], [place] [address] 15 Aug, 2008 [facility] [place] [facility] [address] [id number], [place] [address] Jul, [facility] [address] [facility] [id number] [place] [id number] June, [facility] [address] [facility] [id number] [place] [id number] Apr, IMMUNIZATIONS No Known Immunizations SOCIAL HISTORY Never Assessed REASON FOR VISIT Requests return call PLAN OF CARE VITAL SIGNS MEDICATIONS Unknown Medications RESULTS No Results PROCEDURES No Known procedures [...] of loosened hardware/hip replacement ( [facility] in [place]) 09/2008 Hospitalization History in pt rehab s/p left hip repair 09/2008-11/2008 Hospitalization History [facility] 07/2009
--- OUTSIDE RECORDS SUMMARY | 2017-10-26 13:35 | XMS REPORT ---
Author Author GUADALUPESHWETAA [facility] Address [address] [place] [address] Care Team Providers Care Cleaner Industrial Name Role Phone RAMILASHWETA ANANDA Unavailable PROBLEMS Type Condition ICD9-CM Code PBY20-JG Code Onset Dates Condition Status SNOMED Code Problem Generalized anxiety disorder F41.1 Active 134424574 Problem Seasonal allergic rhinitis due to other allergic trigger J30.89 Active 539606095 Problem Anxiety disorder, unspecified F41.9 Active 978913563 Problem 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 Active 903753079 Problem Meningioma D32.9 Active 970728142 Problem Generalized osteoarthritis M15.9 Active 158804823 Problem Dementia without behavioral disturbance, unspecified dementia type F03.90 Active 00924560 Problem Debility R53.81 Active 03444110 Problem At risk for falls Z91.81 Active 206059597 Problem Other chronic pain G89.29 Active 09601006 Problem Panic attacks F41.0 Active 796241367 Problem Acute drug withdrawal syndrome without complication F19.230 Active 221128395 Problem Anxiety F41.9 Active 04231656 ALLERGIES No Information ENCOUNTERS Encounter Location Date Diagnosis [facility] [id number] [address] Nov, [facility] [id number], [place] [address] Aug, [facility] [id number], [place] [address] Aug, Dementia without behavioral disturbance, unspecified dementia type F03.90 [facility] [id number] [address] 9467 Aug, Dementia without behavioral disturbance, unspecified dementia type F03.90 and Anxiety F41.9 [facility] [address] [address] Jul, Dementia without behavioral disturbance, unspecified dementia type F03.90 [facility] [id number] [place] [address] 12671- 1792 Jul, 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 ; Generalized osteoarthritis M15.9 ; Other chronic pain G89.29 ; At risk for falls Z91.81 and Debility R53.81 [facility] [id number] [place] [address] 52234- 4253 Jul, [facility] [id number] [place] [address] 72033- 4810 June, Dementia without behavioral disturbance, unspecified dementia type F03.90 [facility] [id number] [place] [address] 73771- 7845 June, [facility] [id number] [place] [address] 20237- 1289 June, [facility] [id number] [place] [address] 13414- 6846 June, [facility] [id number] [place] [address] 41440- 3841 June, Dementia without behavioral disturbance, unspecified dementia type F03.90 and Anxiety F41.9 [facility] [address] [place] [address] 86674- 1761 May, [facility] [id number] [place] [address] 94690- 2398 May, [facility] [address] [place] [address] 96224 -2512 May, Anxiety F41.9 ; Acute drug withdrawal syndrome without complication F19.230 and Abdominal pain, unspecified abdominal location R10.9 [facility] [address] [address] 6914 May, Panic attacks F41.0 [facility] [id number] [place] [address] 37558- 3561 May, Other chronic pain G89.29 and Generalized anxiety disorder F41.1 [facility] [id number] [place] [address] 43868- 5382 Apr, Housing problems Z59.9 and Panic attacks F41.0 [facility] [id number] [place] [address] 69683- 1434 Mar, Panic attacks F41.0 [facility] [id number] [place] [address] 23094- 2941 Feb, [facility] [address] 81106- 9617 Feb, Panic attacks F41.0 [facility] [id number] [place] [address] 02055- 6764 Feb, Pain in right knee M25.561 ; Pain in left knee M25.562 ; Other chronic pain G89.29 ; Housing problems Z59.9 ; Dementia without behavioral disturbance, unspecified dementia type F03.90 ; Generalized anxiety disorder F41.1 and Advance directive declined by patient Z78.9 [facility] [id number] [place] [address] 56865- 7966 Jan, Panic attacks F41.0 [facility] [id number] [place] [address] 19075- 8746 Jan, Panic attacks F41.0 [facility] [id number] [place] [address] 56115- 5617 Dec, Panic attacks F41.0 [facility] [address] 27335 -7998 Nov, Allergic contact dermatitis due to cosmetics L23.2 [facility] [id number] [place] [address] 59039- 9250 Nov, Panic attacks F41.0 [facility] [address] [place] [address]- 3322 08 Oct, 2016 Panic attacks F41.0 [facility] [id number] [place] [address] 52258- 4309 Sep, Panic attacks F41.0 ; Insect bite, initial encounter W57.XXXA and 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 [facility] [id number] [place] [address] 31525- 5522 Sep, [facility] [address] 31410- 7415 Aug, Generalized anxiety disorder F41.1 [facility] [address] 17437- 2912 Jul, [facility] [id number] [place] [address] 83823 -9844 June, Seasonal allergic rhinitis due to other allergic trigger J30.89 [facility] [id number] [place] [address] 48383- 4652 June, [facility] [id number] [place] [address] 60011- 4564 June, [facility] [id number] [place] [address] 39473 -4340 June, Dysuria R30.0 and RLQ abdominal pain R10.31 [facility] [id number] [place] [address] 08156- 8519 May, Generalized anxiety disorder F41.1 ; Generalized osteoarthritis M15.9 and Dementia without behavioral disturbance, unspecified dementia type F03.90 [facility] [id number] [place] [address] 52329- 2727 May, [facility] [id number] [place] [address] 05134- 7692 May, [facility] [id number] [place] [address] 86531- 9588 May, [facility] [address] [address]- 5860 Apr, [facility] [id number] [place] [address], [place] [address]- 6166 Apr, Generalized anxiety disorder F41.1 [facility] [address] [place] [address]- 3108 Apr, [facility] [id number] [place] [address] 65815- 7013 Apr, [facility] [id number] [place] [address], [place] [address]- 2174 Apr, [facility] [address] [place] [address] 41893- 0127 Apr, Generalized anxiety disorder F41.1 [facility] [address] [place] [address] 93516- 7375 Mar, [facility] [address] [address]- 9782 Mar, [facility] [address], [place] [address]- 2042 Mar, [facility] [address] [address]- 3659 Mar, [facility] [address] [address]- 1779 Mar, Generalized anxiety disorder F41.1 [facility] [address] [address]- 0130 Feb, Anxiety disorder, unspecified F41.9 [facility] [address], [place] [address]- 6975 Feb, [facility] [address], [place] [address]- 3063 Feb, [facility] [address] [address]- 4295 Feb, [facility] [address] [place] [address] 21145 -6040 Feb, Urinary frequency R35.0 and Acute cystitis without hematuria N30.00 [facility] [id number] [place] [address] 55644- 3481 Feb, [facility] [id number] [place] [address] 72888- 7481 Jan, [facility] [id number] [place] [address] 40461- 4645 Jan, [facility] [id number] [place] [address] 95948- 0433 Dec, [facility] [id number] [place] [address] 65637- 5648 Dec, [facility] [id number] [place] [address] 30135- 2964 Dec, Edema, unspecified type R60.9 [facility] [id number] [place] [address] 32219- 0017 Dec, [facility] [id number] [place] [address] 43349- 9999 Dec, [facility] [id number] [place] [address] 30351- 8374 30 Oct, 2015 Generalized anxiety disorder F41.1 [facility] [address] [place] [address] 99915- 9222 20 Oct, 2015 [facility] [id number] [place] [address] 33595- 4562 16 Oct, 2015 [facility] [id number] [place] [address] 75219- 1273 15 Oct, 2015 [facility] [address] [place] [address] 08736- 5332 06 Oct, 2015 [facility] [address] [address]- 1200 Aug, Anxiety disorder, unspecified F41.9 [facility] [address], [place] [address]- 5407 Jul, Anxiety disorder, unspecified F41.9 [facility] [address] [place] [address]- 8908 Jul, Generalized anxiety disorder F41.1 [facility] [address], [place] [address]- 7515 Jul, [facility] [address] [place] [address] 06085- 1833 June, [facility] [address] [place] [address] 91862- 8340 June, [facility] [id number] [place] [address] 06766- 5127 June, [facility] [address] [address]- 4294 June, [facility] [address] [place] [address] 68863- 7254 May, [facility] [address], [place] [address]18 May, Dementia without behavioral disturbance, unspecified dementia type F03.90 and Generalized osteoarthritis M15.9 [facility] [address], [place] [address]- 9000 May, Generalized osteoarthritis M15.9 and 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 [facility] [address], [place] [address]- 9282 Apr, [facility] [address], [place] [address]- 4942 Apr, [facility] [address], [place] [address]- 6198 Apr, [facility] [id number] [place] [address] 22527- 2212 Mar, [facility] [address] 10027- 6605 Mar, [facility] [address] 20360- 3945 Mar, Generalized anxiety disorder F41.1 [facility] [address] 88237- 5959 Feb, Other infective acute otitis externa of right ear H60.[address] 78284- 6547 Dec, Dysuria R30.0 ; Generalized osteoarthritis M15.9 and Gastroesophageal reflux disease, esophagitis presence not specified K21.[address] 40114- 7641 Dec, [facility] [address] 26665- 2092 Dec, Generalized anxiety disorder F41.1 ; Encounter for immunization Z23 and Dementia F03.90 [facility] [id number] [place] [address] 82099- 2927 Nov, [facility] [id number] [place] [address] 57751- 6005 Oct, [facility] [address] 16761- 1701 24 Oct, 2014 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 ; Chronic pain 338.29 ; Anxiety 300.00 and Dementia 294.[address] 34029- 0680 Oct, [facility] [id number] [place] [address] 56289- 1184 Aug, Generalized anxiety disorder 300.02 and Dementia 294.20 [facility] [address], [place] [address]- 7066 Aug, [facility] [address], [place] [address]- 6378 Aug, Anxiety 300.00 and Chronic pain 338.29 [facility] [address], [place] [address]- 2393 Jul, [facility] [id number] [place] [address] 79833- 2526 Jul, [facility] [address], [place] [address]- 1148 June, [facility] [id number] [place] [address] 69278- 9136 June, Anxiety, generalized 300.02 ; Dementia 294.20 and No condition on [place] II V71.09 [facility] [address] [address]- 1702 May, [facility] [address], [place] [address]- 8779 May, [facility] [address], [place] [address]- 5596 Apr, [facility] [address], [place] [address]- 4035 Apr, [facility] [address], [place] [address]- 5826 Apr, [facility] [address], [place] [address]- 2230 Apr, [facility] [address], [place] [address]- 0226 Apr, [facility] [id number] [address]- 2546 Apr, [facility] [address] 5092 Apr, [facility] [place] [facility] [address] [id number] [place] [address]- 7933 Apr, [facility] [place] [facility] [address] [id number] [place] [address]- 4189 Apr, [facility] [place] [facility] [address] [id number] [place] [address]- 9402 Apr, [facility] [place] [facility] [address] [id number] [place] [address]- 1138 Apr, [facility] [place] [facility] [address] [id number] [place] [address]- 3988 Apr, [facility] [place] [facility] [address] [id number] [place] [address]- 5456 Apr, [facility] [place] [facility] [address] [id number] [place] [address]- 4666 Apr, [facility] [place] [facility] [address] [id number] [place] [address]- 3474 Apr, [facility] [place] [facility] [address] [id number] [place] [address]- 6894 Apr, [facility] [place] [facility] [address] [id number] [place] [address]- 3555 Mar, 2014 [facility] [place] [facility] [address] [id number] [address]- 7255 Mar, 2014 [facility] [place] [facility] [address] [id number] [address]- 1340 Mar, 2014 [facility] [place] [facility] [address] [id number] [place] [address]- 8610 Mar, 2014 [facility] [place] [facility] [address] [id number] [place] [address]- 8620 Mar, 2014 [facility] [place] [facility] [address] [id number] [place] [address]- 6292 Mar, 2014 [facility] [place] [facility] [address] [id number] [place] [address]- 0785 23 Mar, 2014 [facility] [place] [facility] [address] [id number] [place] [address]- 1586 23 Mar, 2014 [facility] [place] [facility] [address] [id number] [place] [address]- 2546 20 Mar, 2014 [facility] [place] [facility] [address] [id number] [place] [address]- 3914 20 Mar, 2014 [facility] [place] [facility] [address] [id number] [place] [address]- 2540 18 Mar, 2014 [facility] [place] [facility] [address] [id number] [place] [address]- 5597 18 Mar, 2014 [facility] [place] [facility] [address] [facility] [id number] [place] [address]- 5639 17 Mar, 2014 [facility] [place] [facility] [address] [facility] [id number] [place] [address]- 0504 17 Mar, 2014 [facility] [place] [facility] [address] [facility] [id number] [place] [address]- 4882 17 Mar, 2014 [facility] [place] [facility] [address] [facility] [id number] [place] [address]- 1288 17 Mar, 2014 [facility] [place] [facility] [address] [facility] [id number] [place] [address]- 1052 13 Mar, 2014 [facility] [place] [facility] [address] [facility] [id number], [place] [address]- 3455 13 Mar, 2014 [facility] [place] [facility] [address] [facility] [id number] [place] [address]- 2540 13 Mar, 2014 [facility] [place] [facility] [address] [facility] [id number] [place] [address]- 1810 13 Mar, 2014 [facility] [place] [facility] [address] [facility] [id number] [place] [address]- 0204 12 Mar, 2014 [facility] [place] [facility] [address] [facility] [id number] [place] [address]- 5596 12 Mar, 2014 [facility] [place] [facility] [address] [id number] [place] [address]- 5266 Mar, 2014 [facility] [place] [facility] [address] [id number] [place] [address]- 2546 Mar, 2014 [facility] [place] [facility] [address] [id number] [place] [address]- 9546 Mar, [facility] [place] [facility] [address] [id number] [place] [address]- 254 Mar, [facility] [place] [facility] [address] [id number] [place] [address]- 3654 Feb, [facility] [place] [facility] [address] [id number] [place] [address]- 0205 Feb, [facility] [place] [facility] [address] [id number] [place] [address]- 6031 Feb, [facility] [place] [facility] [address] [id number] [place] [address]- 2897 Feb, [facility] [place] [facility] [address] [id number] [place] [address]- 8556 Feb, [facility] [place] [facility] [address] [facility] [id number] [place] [address]- 7948 Feb, [facility] [place] [facility] [address] [id number] [place] [address]- 254 Feb, [facility] [place] [facility] [address] [id number] [place] [address]- 2548 Feb, [facility] [place] [facility] [address] [id number] [place] [address]- 1408 Feb, [facility] [place] [facility] [address] [id number] [place] [address]- 4353 Feb, [facility] [place] [facility] [address] [id number] [place] [address]- 9852 Feb, [facility] [place] [facility] [address] [id number] [place] [address]- 6322 Feb, [facility] [place] [facility] [address] [id number] [place] [address]- 7808 Feb, [facility] [place] [facility] [address] [id number] [place] [address]- 1209 Feb, [facility] [place] [facility] [address] [id number] [place] [address]- 1827 Feb, [facility] [place] [facility] [address] [id number] [place] [address]- 8881 Jan, [facility] [place] [facility] [address] [id number] [place] [address]- 9883 Jan, [facility] [place] [facility] [address] [id number] [place] [address]- 8374 Jan, [facility] [place] [facility] [address] [id number] [place] [address]- 8198 Jan, [facility] [place] [facility] [address] [id number] [place] [address]- 3482 Jan, [facility] [place] [facility] [address] [id number] [place] [address]- 8084 Jan, [facility] [place] [facility] [address] [id number] [place] [address]- 6601 Jan, [facility] [place] [facility] [address] [id number] [place] [address]- 8926 Jan, [facility] [place] [facility] [address] [id number] [place] [address]- 2431 Jan, [facility] [place] [facility] [address] [id number] [place] [address]- 5584 Jan, [facility] [place] [facility] [address] [id number] [place] [address]- 7086 Jan, [facility] [place] [facility] [address] [id number] [address]- 9748 Jan, [facility] [place] [facility] [address] [id number] [place] [address]- 0038 Jan, [facility] [place] [facility] [address] [facility] [id number] [place] [address] Jan, [facility] [place] [facility] [address] [id number] [place] [address] Jan, [facility] [place] [facility] [address] [id number] [place] [address] Jan, [facility] [place] [facility] [address] [id number] [place] [id number] Jan, [facility] [place] [facility] [address] [id number] [place] [address] Jan, [facility] [place] [facility] [address] [id number] [address] [address] Jan, [facility] [place] [facility] [address] [id number] [place] [address] Jan, [facility] [place] [facility] [address] [id number] [place] [address] Dec, [facility] [place] [facility] [address] [id number] [place] [address] Dec, [facility] [place] [facility] [address] [id number] [place] [address] Dec, [facility] [place] [facility] [address] [id number], [place] [address] Dec, [facility] [place] [facility] [address] [id number] [place] [address] Dec, [facility] [place] [facility] [address] [id number] [place] [address] Dec, [facility] [place] [facility] [address] [facility] [id number] [place] [address] Dec, [facility] [place] [facility] [address] [id number] [place] [address] Nov, [facility] [place] [facility] [address] [id number] [place] [address] Nov, [facility] [place] [facility] [address] [id number] [place] [address] Nov, [facility] [place] [facility] [address] [id number] [place] [address] Nov, [facility] [place] [facility] [address] [id number] [place] [address] Nov, [facility] [place] [facility] [address] [id number] [place] [address]60 Nov, [facility] [place] [facility] [address] [id number] [place] [address] Nov, [facility] [place] [facility] [address] [id number] [place] [address] Nov, [facility] [place] [facility] [address] [id number] [place] [address] Nov, [facility] [place] [facility] [address] [id number] [place] [address] Nov, [facility] [place] [facility] [address] [id number] [place] [address] 29 Oct, 2013 [facility] [place] [facility] [address] [id number] [place] [address] 29 Oct, 2013 [facility] [place] [facility] [address] [id number] [place] [address] 15 Oct, 2013 [facility] [place] [facility] [address] [id number] [place] [address] 15 Oct, 2013 [facility] [place] [facility] [address] [id number] [place] [address] 15 Oct, 2013 [facility] [place] [facility] [address] [id number] [place] [address] 15 Oct, 2013 [facility] [place] [facility] [address] [id number] [place] [address] 10 Oct, 2013 [facility] [place] [facility] [address] [id number] [place] [address] 10 Oct, 2013 [facility] [place] [facility] [address] [id number] [place] [address] Oct, [facility] [place] [facility] [address] [id number] [place] [address] Oct, [facility] [place] [facility] [address] [id number] [place] [address] Sep, [facility] [place] [facility] [address] [id number] [place] [address]679 Sep, [facility] [place] [facility] [address] [id number] [place] [address] Sep, [facility] [place] [facility] [address] [id number] [place] [address] Sep, [facility] [place] [facility] [address] [id number] [place] [address] Sep, [facility] [place] [facility] [address] [id number] [place] [address] Sep, [facility] [place] [facility] [address] [id number] [place] [address] Sep, [facility] [place] [facility] [address] [id number] [place] [address] Sep, [facility] [place] [facility] [address] [id number] [place] [address] Sep, [facility] [place] [facility] [address] [id number] [place] [address] 1126 Sep, [facility] [place] [facility] [address] [id number] [place] [address] 3023 Aug, [facility] [place] [facility] [address] [id number] [place] [address] 3777 Aug, [facility] [place] [facility] [address] [id number] [place] [address] 8081 Aug, [facility] [place] [facility] [address] [id number] [place] [address]- 9412 Aug, [facility] [place] [facility] [address] [id number] [place] [address]- 7667 Aug, [facility] [place] [facility] [address] [id number] [place] [address]- 0966 Aug, [facility] [place] [facility] [address] [id number] [place] [address]- 4813 Aug, [facility] [place] [facility] [address] [id number] [place] [address]- 1515 Aug, [facility] [place] [facility] [address] [id number] [place] [address]- 4895 Aug, [facility] [place] [facility] [address] [id number] [place] [address]- 4193 Aug, [facility] [place] [facility] [address] [id number] [place] [address]- 7614 Aug, [facility] [place] [facility] [address] [id number] [place] [address]- 7540 Aug, [facility] [place] [facility] [address] [id number] [place] [address]- 7725 Jul, [facility] [place] [facility] [address] [id number] [place] [address]- 6785 Jul, [facility] [place] [facility] [address] [id number] [place] [address]- 6826 Jul, [facility] [place] [facility] [address] [id number] [place] [address]- 5827 Jul, [facility] [place] [facility] [address] [id number] [place] [address]- 2848 Jul, [facility] [place] [facility] [address] [id number] [place] [address]- 6213 Jul, [facility] [place] [facility] [address] [id number] [place] [address]- 6900 17 Jul, 2013 [facility] [place] [facility] [address] [id number] [place] [address]- 0222 Jul, [facility] [place] [facility] [address] [id number] [place] [address]- 8474 Jul, [facility] [place] [facility] [address] [id number] [place] [address]- 3935 Jul, [facility] [place] [facility] [address] [id number] [place] [address]- 7145 Jul, [facility] [place] [facility] [address] [id number] [place] [address]- 4056 Jul, [facility] [place] [facility] [address] [id number] [place] [address]- 7350 Jul, [facility] [place] [facility] [address] [id number] [place] [address]- 7039 Jul, [facility] [place] [facility] [address] [id number] [place] [address]- 5001 Jul, [facility] [place] [facility] [address] [id number] [place] [address]- 8687 Jul, [facility] [place] [facility] [address] [id number] [place] [address]- 7475 Jul, [facility] [place] [facility] [address] [id number] [place] [address]- 4024 June, [facility] [place] [facility] [address] [id number] [place] [address]- 3280 June, [facility] [place] [facility] [address] [id number] [place] [address]- 0454 June, [facility] [place] [facility] [address] [id number] [place] [address]- 2178 June, [facility] [place] [facility] [address] [id number] [place] [address]- 0954 June, [facility] [place] [facility] [address] [id number] [place] [address]- 6944 June, [facility] [place] [facility] [address] [id number] [place] [address]- 4141 June, [facility] [place] [facility] [address] [id number] [place] [address]- 0508 June, [facility] [place] [facility] [address] [id number] [place] [address]- 1821 June, [facility] [place] [facility] [address] [id number] [place] [address]- 6534 June, [facility] [place] [facility] [address] [id number] [place] [address]- 5854 June, [facility] [place] [facility] [address] [id number] [place] [address]- 7010 June, [facility] [place] [facility] [address] [id number] [place] [address]- 8853 June, [facility] [place] [facility] [address] [id number] [place] [address]- 9659 June, [facility] [place] [facility] [address] [id number] [place] [address]- 0373 June, [facility] [place] [facility] [address] [id number] [place] [address]- 8121 June, [facility] [place] [facility] [address] [id number] [place] [address]- 9968 June, [facility] [place] [facility] [address] [id number] [place] [address]- 2373 June, [facility] [place] [facility] [address] [id number] [place] [address]- 3957 June, [facility] [place] [facility] [address] [id number] [place] [address]- 5109 June, [facility] [address] [id number] [place] [address]- 8929 June, [facility] [address] [id number] [place] [address]- 2697 June, [facility] [address] [id number] [place] [address]- 4162 June, [facility] [address] [id number] [place] [address]- 8776 June, [facility] [address] [id number] [place] [address]- 4346 June, [facility] [address] [id number] [place] [address]- 1496 June, [facility] [address] [id number] [place] [address]- 8683 June, [facility] [address] [id number] [place] [address]- 3336 June, [facility] [address] [id number] [place] [address]- 9713 June, [facility] [address] [id number] [place] [address]- 4752 June, [facility] [address] [id number] [place] [address]- 1895 June, [facility] [address] [id number] [place] [address]- 5216 June, [facility] [address] [id number] [place] [address]- 9062 May, [facility] [address] [id number] [place] [address]- 3862 May, [facility] [address] [id number] [place] [address]- 3740 May, [facility] [place] [facility] [address] [id number] [place] [address]- 9909 May, [facility] [place] [facility] [address] [id number] [place] [address]- 5096 May, [facility] [place] [facility] [address] [id number] [place] [address]- 7356 May, [facility] [place] [facility] [address] [id number] [place] [address]- 8276 May, [facility] [place] [facility] [address] [id number] [place] [address]- 1334 May, [facility] [place] [facility] [address] [id number] [place] [address]- 0523 May, [facility] [place] [facility] [address] [id number] [place] [address]- 4452 May, [facility] [place] [facility] [address] [id number] [place] [address]- 7051 May, [facility] [place] [facility] [address] [id number] [place] [address]- 0354 May, [facility] [place] [facility] [address] [id number] [place] [address]- 2744 May, [facility] [place] [facility] [address] [id number] [place] [address]- 1537 May, [facility] [place] [facility] [address] [id number] [place] [address]- 8254 May, [facility] [place] [facility] [address] [id number] [place] [address]- 8117 Apr, [facility] [place] [facility] [address] [id number] [place] [address]- 8456 Apr, [facility] [place] [facility] [address] [id number] [place] [address]- 5318 Apr, [facility] [place] [facility] [address] [id number] [place] [address]- 4751 Apr, [facility] [place] [facility] [address] [id number] [place] [address]- 6466 Apr, [facility] [place] [facility] [address] [id number] [place] [address]- 5106 Apr, [facility] [place] [facility] [address] [id number] [place] [address]- 4046 Mar, [facility] [place] [facility] [address] [id number] [place] [address]- 9148 Mar, [facility] [place] [facility] [address] [id number] [place] [address]- 6917 Mar, [facility] [place] [facility] [address] [id number] [place] [address]- 4438 Mar, [facility] [place] [facility] [address] [id number] [place] [address]- 9607 Mar, [facility] [place] [facility] [address] [id number] [place] [address]- 3395 Mar, [facility] [place] [facility] [address] [id number] [place] [address]- 5362 Mar, [facility] [place] [facility] [address] [facility] [id number] [place] [address]- 9474 Mar, [facility] [place] [facility] [address] [id number] [place] [address]- 9416 Feb, [facility] [place] [facility] [address] [id number] [place] [address]- 7874 Feb, [facility] [place] [facility] [address] [id number] [place] [address]- 3049 Feb, [facility] [place] [facility] [address] [id number] [place] [address]- 8931 Feb, [facility] [place] [facility] [address] [id number] [place] [address]- 8779 Feb, [facility] [place] [facility] [address] [id number] [place] [address]- 6287 Feb, [facility] [place] [facility] [address] [id number] [place] [address]- 9101 Feb, [facility] [place] [facility] [address] [id number] [place] [address]- 5924 Feb, [facility] [place] [facility] [address] [id number] [place] [address]- 0200 Feb, [facility] [address] [id number] [place] [address]- 2410 Feb, [facility] [place] [facility] [address] [id number] [place] [address]- 8023 Jan, [facility] [place] [facility] [address] [id number] [place] [address]- 3526 Jan, [facility] [place] [facility] [address] [id number] [place] [address]- 8215 Jan, [facility] [place] [facility] [address] [id number] [place] [address]- 9966 Jan, [facility] [place] [facility] [address] [id number] [place] [address]- 2502 Jan, [facility] [place] [facility] [address] [id number] [place] [address]- 4675 Jan, [facility] [place] [facility] [address] [id number] [place] [address]- 0612 Jan, [facility] [place] [facility] [address] [id number] [place] [address]- 5712 Jan, [facility] [place] [facility] [address] [id number] [place] [address]- 5899 Dec, [facility] [place] [facility] [address] [id number] [place] [address]- 6808 Dec, [facility] [place] [facility] [address] [id number], [place] [address]- 9910 Dec, [facility] [place] [facility] [address] [id number] [place] [address]- 6338 Dec, [facility] [place] [facility] [address] [id number] 8632 Dec, [facility] [place] [facility] [address] [id number] [place] [address]- 7517 Dec, [facility] [place] [facility] [address] [id number] [place] [address]- 5301 Dec, [facility] [place] [facility] [address] [id number] [place] [address]- 2936 Dec, [facility] [place] [facility] [address] [id number] [place] [address]- 9165 Nov, [facility] [place] [facility] [address] [id number] [place] [address]- 2058 Nov, [facility] [place] [facility] [address] [id number] [place] [address]- 2878 Nov, [facility] [place] [facility] [address] [id number], [place] [address]- 0249 Nov, [facility] [place] [facility] [address] [id number], [place] [address]- 0013 Nov, [facility] [place] [facility] [address] [id number], [place] [address]- 3803 Nov, [facility] [place] [facility] [address] [id number], [place] [address]- 5236 07 Nov, 2012 [facility] [place] [facility] [address] [id number], [place] [address]- 6200 10 Oct, 2012 [facility] [place] [facility] [address] [id number] [place] [address]- 5627 10 Oct, 2012 [facility] [place] [facility] [address] [id number] [place] [address]- 9982 05 Oct, 2012 [facility] [place] [facility] [address] [id number] [place] [address]- 0951 Sep, [facility] [address] [id number] [place] [address]- 3849 Sep, [facility] [place] [facility] [address] [id number] [place] [address]- 0126 Sep, [facility] [place] [facility] [address] [id number] [place] [address]- 3196 Sep, [facility] [place] [facility] [address] [id number] [place] [address]- 5020 Aug, [facility] [place] [facility] [address] [id number] [place] [address]- 5633 Aug, [facility] [place] [facility] [address] [id number] [place] [address]- 1836 Aug, [facility] [place] [facility] [address] [id number] [place] [address]- 1864 Aug, [facility] [address] [id number] [place] [address]- 9990 Aug, [facility] [place] [facility] [address] [id number] [place] [address]- 2140 Jul, [facility] [place] [facility] [address] [id number] [place] [address]- 4632 Jul, [facility] [place] [facility] [address] [id number] [place] [address]- 7319 Jul, [facility] [place] [facility] [address] [id number] [place] [address]- 4015 Jul, [facility] [place] [facility] [address] [id number] [place] [address]- 8504 Jul, [facility] [place] [facility] [address] [id number] [place] [address]- 7506 June, [facility] [place] [facility] [address] [id number] [place] [address]- 3094 June, [facility] [address] [id number] [place] [address]- 2720 June, [facility] [address] [id number] [place] [address]- 2939 June, [facility] [address] [id number] [place] 6076 June, [facility] [address] [id number] [place] [address]- 4613 May, [facility] [address] [id number] [place] [address]- 3677 May, [facility] [address] [id number] [place] [address]- 2452 May, [facility] [address] [id number] [place] [address]- 8914 May, [facility] [address] [id number] [place] [address]- 6965 May, [facility] [address] [id number] [place] [address]- 5958 May, [facility] [address] [id number] [place] [address]- 2644 May, [facility] [place] [facility] [address] [id number] [place] [address]- 5752 Apr, [facility] [place] [facility] [address] [id number], [place] [address]- 9587 Apr, [facility] [place] [facility] [address] [id number] [place] [address]- 3050 Apr, [facility] [place] [facility] [address] [id number] [place] [address]- 9908 Mar, [facility] [place] [facility] [address] [id number] [place] [address]- 2988 Mar, [facility] [place] [facility] [address] [id number] [place] [address]- 7356 20 Mar, 2012 [facility] [address] [id number] [place] [address]- 4266 19 Mar, 2012 [facility] [address] [id number] [place] [address] 2546 13 Mar, 2012 [facility] [address] [id number] [place] [address] 2546 13 Mar, 2012 [facility] [address] [id number] [place] [address] 2548 07 Mar, 2012 [facility] [address] [id number] [place] [address]- 0706 07 Mar, 2012 [facility] [address] [id number] [place] [address]- 4616 31 Feb, 2012 [facility] [address] [id number] [place] [address]- 0333 29 Feb, 2012 [facility] [address] [id number] [place] [address]- 2132 Feb, [facility] [address] [id number] [place] [address]- 2045 Feb, [facility] [address] [id number] [place] [address]- 9267 18 Feb, 2012 [facility] [address] [id number] [place] [address] 2543 15 Feb, 2012 [facility] [address] [id number] [place] [address] 2542 14 Feb, 2012 [facility] [place] [facility] [address] [id number] [place] [address] 2546 Jan, [facility] [place] [facility] [address] [id number] [place] [address] 2546 Jan, [facility] [address] [id number] [place] [address]- 7924 Jan, [facility] [place] [facility] [address] [id number] [place] [address]- 6459 Jan, [facility] [place] [facility] [address] [id number] [place] [address]- 4576 Jan, [facility] [place] [facility] [address] [id number] [place] [address]- 1672 Jan, [facility] [place] [facility] [address] [id number] [place] [address]- 0138 Jan, [facility] [place] [facility] [address] [id number] [place] [address]- 8635 Jan, [facility] [place] [facility] [address] [id number] [place] [address]- 5584 Jan, [facility] [place] [facility] [address] [id number] [place] [address]- 1685 Jan, [facility] [place] [facility] [address] [id number] [place] [address]- 2670 Jan, [facility] [place] [facility] [address] [id number] [place] [address]- 3498 Jan, [facility] [place] [facility] [address] [id number] [place] [address]- 7535 Jan, [facility] [place] [facility] [address] [id number] [place] [address]- 3053 Jan, [facility] [place] [facility] [address] [id number], [place] [address]- 5249 Dec, [facility] [place] [facility] [address] [id number] [place] [address]- 7265 Dec, [facility] [place] [facility] [address] [id number] [place] [address]- 3960 Dec, [facility] [place] [facility] [address] [id number] [place] [address]- 4244 Dec, [facility] [place] [facility] [address] [id number] [place] [address]- 7002 Dec, [facility] [place] [facility] [address] [id number] [place] [address]- 8689 Dec, [facility] [place] [facility] [address] [id number] [place] [address]- 1896 Dec, [facility] [place] [facility] [address] [id number] [place] [address]- 7597 Dec, [facility] [place] [facility] [address] [id number] [place] [address]- 9487 Dec, [facility] [place] [facility] [address] [id number] [place] [address]- 7756 Dec, [facility] [place] [facility] [address] [id number] [place] [address] Dec, [facility] [place] [facility] [address] [id number] [place] [address]65 Dec, [facility] [place] [facility] [address] [id number] [place] [address] Dec, [facility] [place] [facility] [address] [id number] [place] [address] Dec, [facility] [place] [facility] [address] [id number] [place] [address] Dec, [facility] [place] [facility] [address] [id number] [place] [address] Dec, [facility] [place] [facility] [address] [id number] [place] [address] Dec, [facility] [place] [facility] [address] [id number] [place] [address] 9184 Dec, [facility] [place] [facility] [address] [id number] [place] [address] 3936 Dec, [facility] [place] [facility] [address] [id number] [place] [address] Dec, [facility] [place] [facility] [address] [id number] [place] [address] 31 Nov, 2011 [facility] [place] [facility] [address] [id number] [place] [address] 31 Nov, 2011 [facility] [place] [facility] [address] [id number] [place] [address]- 4235 30 Nov, 2011 [facility] [place] [facility] [address] [id number] [place] [address]476 Nov, [facility] [place] [facility] [address] [id number] [place] [address]306 Nov, [facility] [place] [facility] [address] [id number] [place] [address]- [address]352 24 Nov, 2011 [facility] [place] [facility] [address] [id number] [place] [address] 3031 Nov, [facility] [place] [facility] [address] [id number] [place] [address]181 15 Nov, 2011 [facility] [place] [facility] [address] [id number] [place] [address]- 8664 Nov, [facility] [place] [facility] [address] [id number] [place] [address]478 Nov, [facility] [place] [facility] [address] [id number] [place] [address]- 2561 Nov, [facility] [place] [facility] [address] [id number] [place] [address]- 6908 Nov, [facility] [place] [facility] [address] [id number] [place] [address]- 6788 Nov, [facility] [place] [facility] [address] [id number] [place] [address] 58[address] 30 Oct, 2011 [facility] [place] [facility] [address] [id number] [place] [address] 8807 27 Oct, 2011 [facility] [place] [facility] [address] [id number] [place] [address]- 5999 24 Oct, 2011 [facility] [place] [facility] [address] [id number] [place] [address]- 3756 20 Oct, 2011 [facility] [place] [facility] [address] [id number] [place] [address] 2176 Oct, [facility] [place] [facility] [address] [id number] [place] [address] 9406 Oct, [facility] [place] [facility] [address] [id number] [place] [address]- 1060 Sep, [facility] [place] [facility] [address] [id number] [place] [address]- 5665 Sep, [facility] [place] [facility] [address] [id number] [place] [address]- 9210 Sep, [facility] [place] [facility] [address] [id number] [place] [address] 488[address] Sep, [facility] [place] [facility] [address] [id number] [place] [address] 0458 Aug, [facility] [place] [facility] [address] [id number] [place] [address] 8858 Aug, [facility] [place] [facility] [address] [id number] [place] [address] 9327 Aug, [facility] [place] [facility] [address] [id number] [place] [address] 1384 Jul, [facility] [place] [facility] [address] [id number] [place] [address] 2908 Jul, [facility] [place] [facility] [address] [id number] [place] [address]- 4379 Jul, [facility] [place] [facility] [address] [id number] [place] [address] 377[address] Jul, [facility] [place] [facility] [address] [id number] [place] [address] 57[address] June, [facility] [place] [facility] [address] [id number] [place] [address]- 7824 June, [facility] [address] [id number] [place] [address]68 June, [facility] [address] [id number] [place] [address] 0605 June, [facility] [address] [id number] [place] [address] 2649 June, [facility] [address] [id number] [place] [address] 8166 June, [facility] [address] [id number] [place] [address]- 9971 May, [facility] [address] [id number] [place] [address]- 9042 May, [facility] [address] [id number] [place] [address]- 8109 May, [facility] [address] [id number] [place] [address]- 6348 May, [facility] [address] [id number] [place] [address]- 8119 May, [facility] [address] [id number] [place] [address]- 2775 May, [facility] [address] [id number] [place] [address]- 2320 May, [facility] [address] [id number] [place] [address]- 0550 May, [facility] [place] [facility] [address] [id number] [place] [address]- 4825 May, [facility] [address] [id number] [place] [address]- 3692 Apr, [facility] [address] [id number] [place] [address]- 7723 Mar, [facility] [address] [id number] [place] [address]- 7184 27 Mar, 2011 [facility] [place] [facility] [address] [id number] [place] [address]- 1382 21 Mar, 2011 [facility] [place] [facility] [address] [id number] [place] [address]- 5150 10 Mar, 2011 [facility] [place] [facility] [address] [id number] [place] [address]- 9537 Feb, [facility] [place] [facility] [address] [id number] [place] [address]- 5148 Feb, [facility] [place] [facility] [address] [id number] [place] [address]- 5772 Feb, [facility] [place] [facility] [address] [id number] [place] [address]- 0833 Jan, [facility] [place] [facility] [address] [id number] [place] [address] 3000 Jan, [facility] [place] [facility] [address] [id number] [place] [address]- 2189 Jan, [facility] [place] [facility] [address] [id number], [place] [address]642 29 Dec, 2010 [facility] [place] [facility] [address] [id number], [place] [address]- 9319 Dec, [facility] [place] [facility] [address] [id number], [place] [address]- [address]702 16 Dec, 2010 [facility] [place] [facility] [address] [id number] [place] [address]- 3291 15 Dec, 2010 [facility] [place] [facility] [address] [id number], [place] [address]- [address] 31 Nov, 2010 [facility] [place] [facility] [address] [id number] [place] [address]- 5095 31 Nov, 2010 [facility] [place] [facility] [address] [id number] [place] [address]- 0293 19 Nov, 2010 [facility] [place] [facility] [address] [id number] [place] [address] 18 Nov, 2010 [facility] [place] [facility] [address] [id number] [place] [address] 13 Oct, 2010 [facility] [place] [facility] [address] [id number] [place] [address] 20 Jul, 2010 [facility] [place] [facility] [address] [id number] [place] [address] Jan, [facility] [place] [facility] [address] [id number] [place] [address] 30 Dec, 2009 [facility] [place] [facility] [address] [id number] [place] [address] Dec, [facility] [place] [facility] [address] [id number] [place] [address] Dec, [facility] [place] [facility] [address] [id number] [place] [address] Dec, [facility] [place] [facility] [address] [id number] [place] [address] Dec, [facility] [place] [facility] [address] [facility] [id number] [place] [address] Dec, [facility] [place] [facility] [address] [id number] [place] [address] Nov, [facility] [place] [facility] [address] [id number] [place] [address] Nov, [facility] [place] [facility] [address] [id number] [place] [address] Nov, [facility] [place] [facility] [address] [id number] [place] [address] Apr, [facility] [place] [facility] [address] [facility] [id number] [place] [address] Apr, [facility] [place] [facility] [address] [id number] [place] [address] 29 Jan, 2009 [facility] [place] [facility] [address] [id number] [place] [address] 28 Jan, 2009 [facility] [place] [facility] [address] [id number] [place] [address] 23 Jan, 2009 [facility] [place] [facility] [address] [id number] [place] [address] 17 Jan, 2009 [facility] [place] [facility] [address] [id number] [place] [address] 14 Jan, 2009 [facility] [place] [facility] [address] [id number] [place] [address] Jan, [facility] [place] [facility] [address] [id number] [place] [address] 30 Dec, 2008 [facility] [place] [facility] [address] [id number] [place] [address] Dec, [facility] [place] [facility] [address] [id number] [place] [address] 18 Dec, 2008 [facility] [place] [facility] [address] [id number] [place] [address] Dec, [facility] [place] [facility] [address] [facility] [id number] [place] [address] Dec, [facility] [place] [facility] [address] [id number], [place] [address] Dec, [facility] [place] [facility] [address] [id number] [place] [address] 28 Nov, 2008 [facility] [place] [facility] [address] [id number] [place] [address] 27 Nov, 2008 [facility] [place] [facility] [address] [id number], [place] [address] 15 Aug, 2008 [facility] [place] [facility] [address] [id number], [place] [address] Jul, [facility] [address] [facility] [id number] [place] [address] June, [facility] [address] [facility] [id number] [place] [address] Apr, IMMUNIZATIONS No Known Immunizations SOCIAL HISTORY Never Assessed REASON FOR VISIT medication PLAN OF CARE VITAL SIGNS MEDICATIONS Medication Instructions Dosage Frequency Start Date End Date Duration Status Clonazepam 0.5 MG Orally daily(part of taper) [...] of loosened hardware/hip replacement ( [place] in [place]) 09/2008 Hospitalization History in pt rehab s/p left hip repair 09/2008-11/2008 Hospitalization History [facility] 07/2009
--- OUTSIDE RECORDS SUMMARY | 2017-10-26 13:36 | XMS REPORT ---
Author Author [facility] Address [address] [place] [address] Care Team Providers Care Boxing Inspector Name Role Phone RAMILASHWETA ANANDA Unavailable PROBLEMS Type Condition ICD9-CM Code [id number] Code Onset Dates Condition Status SNOMED Code Problem Generalized anxiety disorder F41.1 Active 936311880 Problem Seasonal allergic rhinitis due to other allergic trigger J30.89 Active 124728546 Problem Anxiety disorder, unspecified F41.9 Active 838428868 Problem 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 Active 778476769 Problem Meningioma D32.9 Active 974676401 Problem Generalized osteoarthritis M15.9 Active 420096173 Problem Dementia without behavioral disturbance, unspecified dementia type F03.90 Active 29543865 Problem Debility R53.81 Active 23322404 Problem At risk for falls Z91.81 Active 938423398 Problem Other chronic pain G89.29 Active 98324140 Problem Panic attacks F41.0 Active 178943242 Problem Acute drug withdrawal syndrome without complication F19.230 Active 508683484 Problem Anxiety F41.9 Active 12535792 ALLERGIES No Information ENCOUNTERS Encounter Location Date Diagnosis [facility] [id number] [address] Nov, [facility] [id number], [place] [address] Aug, [facility] [id number], [place] [address] Aug, Dementia without behavioral disturbance, unspecified dementia type F03.90 [facility] [id number], [place] [address] 5[address] Aug, Dementia without behavioral disturbance, unspecified dementia type F03.[address] [facility] [address], [place] [address] Jul, Dementia without behavioral disturbance, unspecified dementia type F03.90 [facility] [id number] [place] [address] 20226- 0449 Jul, 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 ; Generalized osteoarthritis M15.9 ; Other chronic pain G89.29 ; At risk for falls Z91.[address] [facility] [id number] [place] [address] 35993- 0362 Jul, [facility] [id number] [place] [address] 68635- 3681 June, Dementia without behavioral disturbance, unspecified dementia type F03.90 [facility] [id number] [place] [address] 05488- 8782 June, [facility] [id number] [place] [address] 04827- 7351 June, [facility] [id number] [place] [address] 80229- 3220 June, [facility] [id number] [place] [address] 64200- 3859 June, Dementia without behavioral disturbance, unspecified dementia type F03.[address] [facility] [id number] [place] [address] 34767- 1402 May, [facility] [id number] [place] [address] 05602- 5795 May, [facility] [id number] [place] [address] 59760 -9045 May, Anxiety F41.9 ; Acute drug withdrawal syndrome without complication F19.230 and Abdominal pain, unspecified abdominal location R10.9 [facility] [address], [place] [address] 3869 May, Panic attacks F41.0 [facility] [id number] [place] [address] 11330- 6286 May, Other chronic pain G89.29 and Generalized anxiety disorder F41.1 [place] [id number] [place] [address] 77059- 3452 Apr, Housing problems Z59.9 [address] Panic attacks F41.0 [facility] [id number] [place] [address] 68036- 2934 Mar, Panic attacks F41.0 [place] [id number] [place] [address] 58421- 5675 Feb, [place] [address] 01451- 1598 Feb, Panic attacks F41.0 [place] [id number] [place] [address] 50732- 4882 Feb, Pain in right knee M25.561 ; Pain in left knee M25.562 ; Other chronic pain G89.29 ; Housing problems Z59.9 ; Dementia without behavioral disturbance, unspecified dementia type F03.90 ; Generalized anxiety disorder F41.1 and Advance directive declined by patient Z78.9 [place] [id number] [place] [address] 58494- 0738 Jan, Panic attacks F41.0 [facility] [id number] [place] [address] 98773- 1382 Jan, Panic attacks F41.0 [facility] [id number] [place] [address] 54553- 8236 Dec, Panic attacks F41.0 [facility] [address] 23680 -6152 Nov, Allergic contact dermatitis due to cosmetics L23.2 [facility] [id number] [place] [address] 79763- 6137 Nov, Panic attacks F41.0 [facility] [address] [place] [address]- 8600 08 Oct, [address] 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 [id number] [place] [address] 04978- 0761 Sep, [facility] [address] 15801- 8092 Aug, Generalized anxiety disorder F41.1 [place] [address] 77197- 7735 Jul, [facility] [id number] [place] [address] 68181 -5669 June, Seasonal allergic rhinitis due to other allergic trigger J30.89 [place] [id number] [place] [address] 09721- 6594 June, [facility] [id number] [place] [address] 42173- 2030 June, [facility] [id number] [place] [address] 57142 -2985 June, Dysuria R30.0 and RLQ abdominal pain R10.31 [place] [id number] [place] [address] 45598- 6144 May, Generalized anxiety disorder F41.1 ; Generalized osteoarthritis M15.9 and Dementia without behavioral disturbance, unspecified dementia type F03.90 [place] [id number] [place] [address] 37819- 5052 May, [facility] [id number] [place] [address] 83636- 0950 May, [place] [id number] [place] [address] 71902- 1575 May, [facility] [address] [address]- 5573 Apr, [facility] [id number] [place] [address], [place] [address]- 2436 Apr, Generalized anxiety disorder F41.1 [facility] [id number] [place] [address]- 7663 Apr, [facility] [id number] [place] [address] 62596- 3477 Apr, [facility] [id number] [place] [address], [place] [address]- 4515 Apr, [facility] [id number] [place] [address] 41008- 3426 Apr, Generalized anxiety disorder F41.1 [facility] [id number] [place] [address] 04416- 9639 Mar, [facility] [address], [place] [address]- 2534 Mar, [facility] [address], [place] [address]- 4131 Mar, [facility] [address], [place] [address]- 5803 Mar, [facility] [address], [place] [address]- 0826 Mar, Generalized anxiety disorder F41.1 [facility] [address], [place] [address]- 0137 Feb, Anxiety disorder, unspecified F41.9 [facility] [address], [place] [address]- 0168 Feb, [facility] [address], [place] [address]- 1149 Feb, [facility] [address], [place] [address]- 9872 Feb, [facility] [id number] [place] [address] 70703 -5129 Feb, Urinary frequency R35.0 and Acute cystitis without hematuria N30.00 [facility] [id number] [place] [address] 70629- 8771 Feb, [facility] [id number] [place] [address] 64497- 0720 Jan, [facility] [id number] [place] [address] 28646- 2957 Jan, [facility] [id number] [place] [address] 96572- 8894 Dec, [facility] [id number] [place] [address] 81686- 8884 Dec, [facility] [id number] [place] [address] 78967- 5805 Dec, Edema, unspecified type R60.9 [facility] [id number] [place] [address] 95344- 1878 Dec, [facility] [id number] [place] [address] 88377- 8743 Dec, [facility] [id number] [place] [address] 52622- 5084 30 Oct, 2015 Generalized anxiety disorder F41.1 [facility] [id number] [place] [address] 22922- 4666 [address], [address] [facility] [id number] [place] [address] 74121- 8535 [address], [address] [facility] [id number] [place] [address] 28500- 1797 [address], [address] [facility] [id number] [place] [address] 01970- 1135 06 Oct, 2015 [facility] [address], [place] [address]- 7548 Aug, Anxiety disorder, unspecified F41.9 [facility] [address], [place] [address]- 0966 Jul, Anxiety disorder, unspecified F41.9 [facility] [address] [place] [address]- 7155 Jul, Generalized anxiety disorder F41.1 [facility] [address], [place] [address]- 0466 Jul, [facility] [id number] [place] [address] 01623- 9259 June, [facility] [id number] [place] [address] 37395- 1762 June, [facility] [id number] [place] [address] 42350- 5863 June, [facility] [address] [address] 7767 June, [facility] [id number] [place] [address] 32489- 1655 May, [facility] [address], [place] [address] -2489 May, Dementia without behavioral disturbance, unspecified dementia type F03.90 and Generalized osteoarthritis M15.9 [facility] [address], [place] [address]- 1754 May, Generalized osteoarthritis M15.9 and 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 [facility] [address], [place] [address]- 2279 Apr, [facility] [address], [place] [address]- 4721 Apr, [facility] [address], [place] [address]- 9741 Apr, [place] [id number] [place] [address] 14804- 3771 Mar, [facility] [address] 75458- 0235 Mar, [place] [address] 04783- 7996 Mar, Generalized anxiety disorder F41.1 [place] [address] 07016- 2967 Feb, Other infective acute otitis externa of right ear H60.[address] 57569- 6086 Dec, Dysuria R30.0 ; Generalized osteoarthritis M15.9 and Gastroesophageal reflux disease, esophagitis presence not specified K21.[address] 19735- 4576 Dec, [place] [address] 64132- 4095 Dec, Generalized anxiety disorder F41.1 ; Encounter for immunization Z23 and Dementia F03.90 [place] [id number] [place] [address] 03450- 9864 Nov, [place] [id number] [place] [address] 52064- 2907 Oct, [place] [address] 29691- 2344 24 Oct, 2014 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 [address], [place] [address]- 1657 Aug, Anxiety 300.00 and Chronic pain 338.29 [facility] [address], [place] [address]- 5792 Jul, [facility] [id number] [place] [address] 21824- 8126 Jul, [facility] [address], [place] [address]- 8473 June, [facility] [id number] [place] [address] 17872- 2706 June, Anxiety, generalized 300.02 ; Dementia 294.20 and No condition on [place] V71.09 [facility] [id number] [address]- 2873 May, [facility] [address] [address]- 1747 May, [facility] [address] [address]- 8676 Apr, [facility] [address] [address]- 6126 Apr, [facility] [address] [address] 5316 Apr, [facility] [address] [address]- 5665 Apr, [facility] [address] [address]- 7769 Apr, [facility] [id number] [address]- 2546 Apr, [facility] [address] 0038 Apr, [facility] [place] [facility] [address] [id number] [place] [address]- 4372 Apr, [facility] [place] [facility] [address] [id number] [place] [address]- 1967 Apr, [facility] [place] [facility] [address] [id number] [place] [address]- 0680 Apr, [facility] [place] [facility] [address] [id number] [place] [address]- 7877 Apr, [facility] [place] [facility] [address] [id number] [place] [address]- 1791 Apr, [facility] [place] [facility] [address] [id number] [place] [address]- 3262 Apr, [facility] [place] [facility] [address] [id number] [place] [address]- 0175 Apr, [facility] [place] [facility] [address] [id number] [place] [address]- 0322 Apr, [facility] [place] [facility] [address] [id number] [place] [address]- 0740 Apr, [facility] [place] [facility] [address] [id number] [place] [address]- 7043 Mar, 2014 [facility] [place] [facility] [address] [id number] [address]- 2703 Mar, 2014 [facility] [place] [facility] [address] [id number], [place] [address]- 8173 Mar, 2014 [facility] [place] [facility] [address] [id number] [place] [address]- 5745 Mar, 2014 [facility] [place] [facility] [address] [id number] [place] [address]- 5107 Mar, 2014 [facility] [place] [facility] [address] [id number] [place] [address]- 4443 Mar, 2014 [facility] [place] [facility] [address] [id number] [place] [address]- 5472 23 Mar, 2014 [facility] [place] [facility] [address] [id number] [place] [address]- 2926 23 Mar, 2014 [facility] [place] [facility] [address] [id number] [place] [address]- 2546 20 Mar, 2014 [facility] [place] [facility] [address] [id number] [place] [address]- 9098 20 Mar, 2014 [facility] [place] [facility] [address] [id number] [place] [address]- 2541 18 Mar, 2014 [facility] [place] [facility] [address] [id number] [place] [address]- 7700 18 Mar, 2014 [facility] [place] [facility] [address] [facility] [id number] [place] [address]- 5032 17 Mar, 2014 [facility] [place] [facility] [address] [facility] [id number] [place] [address]- 9788 17 Mar, 2014 [facility] [place] [facility] [address] [facility] [id number] [place] [address]- 7101 17 Mar, 2014 [facility] [place] [facility] [address] [facility] [id number] [place] [address]- 3428 17 Mar, 2014 [facility] [place] [facility] [address] [facility] [id number] [place] [address]- 7421 13 Mar, 2014 [facility] [place] [facility] [address] [facility] [id number], [place] [address]- 3044 13 Mar, 2014 [facility] [place] [facility] [address] [facility] [id number] [place] [address]- 2543 13 Mar, 2014 [facility] [place] [facility] [address] [facility] [id number] [place] [address]- 2062 13 Mar, 2014 [facility] [place] [facility] [address] [facility] [id number] [place] [address]- 2513 12 Mar, 2014 [facility] [place] [facility] [address] [facility] [id number] [place] [address]- 0234 12 Mar, 2014 [facility] [place] [facility] [address] [id number] [place] [address]- 5766 Mar, 2014 [facility] [place] [facility] [address] [id number] [place] [address]- 2546 Mar, 2014 [facility] [place] [facility] [address] [id number] [place] [address]- 0366 Mar, [facility] [place] [facility] [address] [id number] [place] [address]- 2541 Mar, [facility] [place] [facility] [address] [id number] [place] [address]- 2699 Feb, [facility] [place] [facility] [address] [id number] [place] [address]- 9287 Feb, [facility] [place] [facility] [address] [id number] [place] [address]- 5660 Feb, [facility] [place] [facility] [address] [id number] [place] [address]- 0398 Feb, [facility] [place] [facility] [address] [id number] [place] [address]- 3309 Feb, [facility] [place] [facility] [address] [facility] [id number] [place] [address]- 1369 Feb, [facility] [place] [facility] [address] [id number] [place] [address]- 2549 Feb, [facility] [place] [facility] [address] [id number] [place] [address]- 2545 Feb, [facility] [place] [facility] [address] [id number] [place] [address]- 0277 Feb, [facility] [place] [facility] [address] [id number] [place] [address]- 5099 Feb, [facility] [place] [facility] [address] [id number] [place] [address]- 1182 Feb, [facility] [place] [facility] [address] [id number] [place] [address]- 7723 Feb, [facility] [place] [facility] [address] [id number] [place] [address]- 6893 Feb, [facility] [place] [facility] [address] [id number] [place] [address]- 5596 Feb, [facility] [place] [facility] [address] [id number] [place] [address]- 3848 Feb, [facility] [place] [facility] [address] [id number] [place] [address]- 5446 Jan, [facility] [place] [facility] [address] [id number] [place] [address]- 4552 Jan, [facility] [place] [facility] [address] [id number] [place] [address]- 7805 Jan, [facility] [place] [facility] [address] [id number] [place] [address]- 7580 Jan, [facility] [place] [facility] [address] [id number] [place] [address]- 9145 Jan, [facility] [place] [facility] [address] [id number] [place] [address]- 3774 Jan, [facility] [place] [facility] [address] [id number] [place] [address] Jan, [facility] [place] [facility] [address] [id number] [place] [address] Jan, [facility] [place] [facility] [address] [id number] [place] [address] Jan, [facility] [place] [facility] [address] [id number] [place] [address] Jan, [facility] [place] [facility] [address] [id number] [place] [address] Jan, [facility] [place] [facility] [address] [id number], [place] [address] Jan, [facility] [place] [facility] [address] [id number] [place] [address] Jan, [facility] [place] [facility] [address] [facility] [id number] [place] [address] Jan, [facility] [place] [facility] [address] [id number] [place] [address] Jan, [facility] [place] [facility] [address] [id number] [place] [address] Jan, [facility] [place] [facility] [address] [id number] [place] [id number] Jan, [facility] [place] [facility] [address] [id number] [place] [address] Jan, [facility] [place] [facility] [address] [id number] [place] [address] [address] Jan, [facility] [place] [facility] [address] [id number] [place] [address] Jan, [facility] [place] [facility] [address] [id number] [place] [address] Dec, [facility] [place] [facility] [address] [id number] [place] [address] Dec, [facility] [place] [facility] [address] [id number] [place] [address] Dec, [facility] [place] [facility] [address] [id number], [place] [address] Dec, [facility] [place] [facility] [address] [id number] [place] [address] Dec, [facility] [place] [facility] [address] [id number] [place] [address] Dec, [facility] [place] [facility] [address] [facility] [id number] [place] [address] Dec, [facility] [place] [facility] [address] [id number] [place] [address] Nov, [facility] [place] [facility] [address] [id number] [place] [address] Nov, [facility] [place] [facility] [address] [id number] [place] [address] Nov, [facility] [place] [facility] [address] [id number] [place] [address] 1993 Nov, [facility] [place] [facility] [address] [id number] [place] [address]- [address] Nov, [facility] [place] [facility] [address] [id number] [place] [address] Nov, [facility] [place] [facility] [address] [id number] [place] [address]- [address] Nov, [facility] [place] [facility] [address] [id number] [place] [address] Nov, [facility] [place] [facility] [address] [id number] [place] [address] Nov, [facility] [place] [facility] [address] [id number] [place] [address] Nov, [facility] [place] [facility] [address] [id number] [place] [address]- [address] 29 Oct, 2013 [facility] [place] [facility] [address] [id number] [place] [address] 29 Oct, 2013 [facility] [place] [facility] [address] [id number] [place] [address] 15 Oct, 2013 [facility] [place] [facility] [address] [id number] [place] [address]- [address] 15 Oct, 2013 [facility] [place] [facility] [address] [id number] [place] [address] 15 Oct, 2013 [facility] [place] [facility] [address] [id number] [place] [address]- [address] 15 Oct, 2013 [facility] [place] [facility] [address] [id number] [place] [address]- [address] 10 Oct, 2013 [facility] [place] [facility] [address] [id number] [place] [address] 10 Oct, 2013 [facility] [place] [facility] [address] [id number] [place] [address] Oct, [facility] [place] [facility] [address] [id number] [place] [address] Oct, [facility] [place] [facility] [address] [id number] [place] [address] Sep, [facility] [place] [facility] [address] [id number] [place] [address] Sep, [facility] [place] [facility] [address] [id number] [place] [address] Sep, [facility] [place] [facility] [address] [id number] [place] [address] 5[address] Sep, [facility] [place] [facility] [address] [id number] [place] [address]- [address]306 Sep, [facility] [place] [facility] [address] [id number] [place] [address] 7978 Sep, [facility] [place] [facility] [address] [id number] [place] [address] 9433 Sep, [facility] [place] [facility] [address] [id number] [place] [address] 2417 Sep, [facility] [place] [facility] [address] [id number] [place] [address]- 4664 Sep, [facility] [place] [facility] [address] [id number] [place] [address] 8346 Sep, [facility] [place] [facility] [address] [id number] [place] [address] 2739 Aug, [facility] [place] [facility] [address] [id number] [place] [address]- 3162 Aug, [facility] [place] [facility] [address] [id number] [place] [address] 4[address] Aug, [facility] [place] [facility] [address] [id number] [place] [address] 5760 Aug, [facility] [place] [facility] [address] [id number] [place] [address]- 5428 Aug, [facility] [place] [facility] [address] [id number] [place] [address]- 7735 Aug, [facility] [place] [facility] [address] [id number] [place] [address]- 5968 Aug, [facility] [place] [facility] [address] [id number] [place] [address]- 1494 Aug, [facility] [place] [facility] [address] [id number] [place] [address]- 7251 Aug, [facility] [place] [facility] [address] [id number] [place] [address]- 1527 Aug, [facility] [place] [facility] [address] [id number] [place] [address]- 9033 Aug, [facility] [place] [facility] [address] [id number] [place] [address]- 1657 Aug, [facility] [place] [facility] [address] [id number] [place] [address]- 7270 Jul, [facility] [place] [facility] [address] [id number] [place] [address]- 1512 Jul, [facility] [place] [facility] [address] [id number] [place] [address]- 0333 Jul, [facility] [place] [facility] [address] [id number] [place] [address]- 3284 Jul, [facility] [place] [facility] [address] [id number] [place] [address]- 1057 Jul, [facility] [place] [facility] [address] [id number] [place] [address]- 2753 Jul, [facility] [place] [facility] [address] [id number] [place] [address]- 3090 17 Jul, 2013 [facility] [place] [facility] [address] [id number] [place] [address]- 7832 Jul, [facility] [place] [facility] [address] [id number] [place] [address]- 8501 Jul, [facility] [place] [facility] [address] [id number] [place] [address]- 7260 Jul, [facility] [place] [facility] [address] [id number] [place] [address]- 7597 Jul, [facility] [place] [facility] [address] [id number] [place] [address]- 6369 Jul, [facility] [place] [facility] [address] [id number] [place] [address]- 1149 Jul, [facility] [place] [facility] [address] [id number] [place] [address]- 8923 Jul, [facility] [place] [facility] [address] [id number] [place] [address]- 0674 Jul, [facility] [place] [facility] [address] [id number] [place] [address]- 0318 Jul, [facility] [place] [facility] [address] [id number] [place] [address]- 7105 Jul, [facility] [place] [facility] [address] [id number] [place] [address]- 8726 June, [facility] [place] [facility] [address] [id number] [place] [address]- 1168 June, [facility] [place] [facility] [address] [id number] [place] [address]- 8389 June, [facility] [place] [facility] [address] [id number] [place] [address]- 6541 June, [facility] [place] [facility] [address] [id number] [place] [address]- 8276 June, [facility] [place] [facility] [address] [id number] [place] [address]- 4881 June, [facility] [place] [facility] [address] [id number] [place] [address]- 5789 June, [facility] [place] [facility] [address] [id number] [place] [address]- 8249 June, [facility] [place] [facility] [address] [id number] [place] [address]- 3615 June, [facility] [place] [facility] [address] [id number] [place] [address]- 2613 June, [facility] [place] [facility] [address] [id number] [place] [address]- 3338 June, [facility] [place] [facility] [address] [id number] [place] [address]- 1532 June, [facility] [place] [facility] [address] [id number] [place] [address]- 9541 June, [facility] [place] [facility] [address] [id number] [place] [address]- 0136 June, [facility] [place] [facility] [address] [id number] [place] [address]- 7039 June, [facility] [place] [facility] [address] [id number] [place] [address]- 6480 June, [facility] [place] [facility] [address] [id number] [place] [address]- 5711 June, [facility] [place] [facility] [address] [id number] [place] [address]- 8572 June, [facility] [place] [facility] [address] [id number] [place] [address]- 0506 June, [facility] [place] [facility] [address] [id number] [place] [address]- 1523 June, [facility] [address] [id number] [place] [address]- 6672 June, [facility] [address] [id number] [place] [address]- 9448 June, [facility] [address] [id number] [place] [address]- 9659 June, [facility] [address] [id number] [place] [address]- 6719 June, [facility] [address] [id number] [place] [address]- 9892 June, [facility] [address] [id number] [place] [address]- 9050 June, [facility] [address] [id number] [place] [address]- 0351 June, [facility] [address] [id number] [place] [address]- 6979 June, [facility] [address] [id number] [place] [address]- 2045 June, [facility] [address] [id number] [place] [address]- 1550 June, [facility] [address] [id number] [place] [address]- 0838 June, [facility] [address] [id number] [place] [address]- 0717 June, [facility] [address] [id number] [place] [address]- 6653 May, [facility] [address] [id number] [place] [address]- 9870 May, [facility] [address] [id number] [place] [address]- 0944 May, [facility] [place] [facility] [address] [id number] [place] [address]- 3837 May, [facility] [place] [facility] [address] [id number] [place] [address]- 0303 May, [facility] [place] [facility] [address] [id number] [place] [address]- 7550 May, [facility] [place] [facility] [address] [id number] [place] [address]- 1999 May, [facility] [place] [facility] [address] [id number] [place] [address]- 3015 May, [facility] [place] [facility] [address] [id number] [place] [address]- 4771 May, [facility] [place] [facility] [address] [id number] [place] [address]- 5188 May, [facility] [place] [facility] [address] [id number] [place] [address]- 4388 May, [facility] [place] [facility] [address] [id number] [place] [address]- 5580 May, [facility] [place] [facility] [address] [id number] [place] [address]- 2631 May, [facility] [place] [facility] [address] [id number] [place] [address]- 9221 May, [facility] [place] [facility] [address] [id number] [place] [address]- 3962 May, [facility] [place] [facility] [address] [id number] [place] [address]- 3462 Apr, [facility] [place] [facility] [address] [id number] [place] [address]- 9888 Apr, [facility] [place] [facility] [address] [id number] [place] [address]- 8658 Apr, [facility] [place] [facility] [address] [id number] [place] [address]- 3117 Apr, [facility] [place] [facility] [address] [id number] [place] [address]- 7406 Apr, [facility] [place] [facility] [address] [id number] [place] [address]- 0996 Apr, [facility] [place] [facility] [address] [id number] [place] [address]- 7266 Mar, [facility] [place] [facility] [address] [id number] [place] [address]- 9827 Mar, [facility] [place] [facility] [address] [id number] [place] [address]- 4808 Mar, [facility] [place] [facility] [address] [id number] [place] [address]- 4763 Mar, [facility] [place] [facility] [address] [id number] [place] [address]- 6533 Mar, [facility] [place] [facility] [address] [id number] [place] [address]- 0049 Mar, [facility] [place] [facility] [address] [id number] [place] [address]- 1965 Mar, [facility] [place] [facility] [address] [facility] [id number] [place] [address]- 7145 Mar, [facility] [place] [facility] [address] [id number] [place] [address]- 1137 Feb, [facility] [place] [facility] [address] [id number] [place] [address]- 0749 Feb, [facility] [place] [facility] [address] [id number] [place] [address]- 7498 Feb, [facility] [place] [facility] [address] [id number] [place] [address]- 2671 Feb, [facility] [place] [facility] [address] [id number] [place] [address]- 7619 Feb, [facility] [place] [facility] [address] [id number] [place] [address]- 6590 Feb, [facility] [place] [facility] [address] [id number] [place] [address]- 6804 Feb, [facility] [place] [facility] [address] [id number] [place] [address]- 8502 Feb, [facility] [place] [facility] [address] [id number] [place] [address]- 9340 Feb, [facility] [address] [id number] [place] [address]- 4299 Feb, [facility] [place] [facility] [address] [id number] [place] [address]- 2210 Jan, [facility] [place] [facility] [address] [id number] [place] [address]- 9710 Jan, [facility] [place] [facility] [address] [id number] [place] [address]- 3851 Jan, [facility] [place] [facility] [address] [id number] [place] [address]- 6591 Jan, [facility] [place] [facility] [address] [id number] [place] [address]- 9688 Jan, [facility] [place] [facility] [address] [id number] [place] [address]- 0851 Jan, [facility] [place] [facility] [address] [id number] [place] [address]- 5705 Jan, [facility] [place] [facility] [address] [id number] [place] [address]- 6709 Jan, [facility] [place] [facility] [address] [id number] [place] [address]- 8393 Dec, [facility] [place] [facility] [address] [id number] [place] [address]- 7600 Dec, [facility] [place] [facility] [address] [id number], [place] [address]- 5995 Dec, [facility] [place] [facility] [address] [id number] [place] [address]- 7789 Dec, [facility] [place] [facility] [address] [id number] 6640 Dec, [facility] [place] [facility] [address] [id number] [place] [address]- 7909 Dec, [facility] [place] [facility] [address] [id number] [place] [address]- 5927 Dec, [facility] [place] [facility] [address] [id number] [place] [address]- 5658 Dec, [facility] [place] [facility] [address] [id number] [place] [address]- 1296 Nov, [facility] [place] [facility] [address] [id number] [place] [address]- 3946 Nov, [facility] [place] [facility] [address] [id number] [place] [address]- 8895 Nov, [facility] [place] [facility] [address] [id number], [place] [address]- 5293 Nov, [facility] [place] [facility] [address] [id number], [place] [address]- 0258 Nov, [facility] [place] [facility] [address] [id number], [place] [address]- 9045 Nov, [facility] [place] [facility] [address] [id number], [place] [address]- 7590 07 Nov, 2012 [facility] [place] [facility] [address] [id number], [place] [address]- 3000 10 Oct, 2012 [facility] [place] [facility] [address] [id number] [place] [address]- 2279 10 Oct, 2012 [facility] [place] [facility] [address] [id number] [place] [address]- 3662 05 Oct, 2012 [facility] [place] [facility] [address] [id number] [place] [address]- 7054 Sep, [facility] [address] [id number] [place] [address]- 2884 Sep, [facility] [place] [facility] [address] [id number] [place] [address]- 8916 Sep, [facility] [place] [facility] [address] [id number] [place] [address]- 5356 Sep, [facility] [place] [facility] [address] [id number] [place] [address]- 3236 Aug, [facility] [place] [facility] [address] [id number] [place] [address]- 1504 Aug, [facility] [place] [facility] [address] [id number] [place] [address]- 9084 Aug, [facility] [place] [facility] [address] [id number] [place] [address]- 3858 Aug, [facility] [address] [id number] [place] [address]- 9268 Aug, [facility] [place] [facility] [address] [id number] [place] [address]- 7404 Jul, [facility] [place] [facility] [address] [id number] [place] [address]- 2542 Jul, [facility] [place] [facility] [address] [id number] [place] [address]- 5222 Jul, [facility] [place] [facility] [address] [id number] [place] [address]- 0811 Jul, [facility] [place] [facility] [address] [id number] [place] [address]- 6002 Jul, [facility] [place] [facility] [address] [id number] [place] [address]- 5376 June, [facility] [place] [facility] [address] [id number] [place] [address]- 3345 June, [facility] [address] [id number] [place] [address]- 7843 June, [facility] [address] [id number] [place] [address]- 6783 June, [facility] [address] [id number] [place] June, [facility] [address] [id number] [place] [address]- 6125 May, [facility] [address] [id number] [place] [address]- 0795 May, [facility] [address] [id number] [place] [address]- 8390 May, [facility] [address] [id number] [place] [address]- 7359 May, [facility] [address] [id number] [place] [address]- 9347 May, [facility] [address] [id number] [place] [address]- 5321 May, [facility] [address] [id number] [place] [address]- 1108 May, [facility] [place] [facility] [address] [id number] [place] [address]- 8254 Apr, [facility] [place] [facility] [address] [id number], [place] [address]- 4439 Apr, [facility] [place] [facility] [address] [id number] [place] [address]- 9809 Apr, [facility] [place] [facility] [address] [id number] [place] [address]- 7650 Mar, [facility] [place] [facility] [address] [id number] [place] [address]- 3316 Mar, [facility] [place] [facility] [address] [id number] [place] [address]- 3364 20 Mar, [address] [facility] [address] [id number] [place] [address]- 7456 19 Mar, 2012 [facility] [address] [id number] [place] [address] 2546 13 Mar, 2012 [facility] [address] [id number] [place] [address] 2546 13 Mar, 2012 [facility] [address] [id number] [place] [address] 2545 07 Mar, 2012 [facility] [address] [id number] [place] [address]- 3026 07 Mar, 2012 [facility] [address] [id number] [place] [address]- 5611 31 Feb, 2012 [facility] [address] [id number] [place] [address]- 8696 29 Feb, 2012 [facility] [address] [id number] [place] [address]- 2899 Feb, [facility] [address] [id number] [place] [address]- 9657 Feb, [facility] [address] [id number] [place] [address]- 6037 18 Feb, 2012 [facility] [address] [id number] [place] [address] 2549 15 Feb, 2012 [facility] [address] [id number] [place] [address] 2542 14 Feb, 2012 [facility] [place] [facility] [address] [id number] [place] [address] 2546 Jan, [facility] [place] [facility] [address] [id number] [place] [address] 2546 Jan, [facility] [address] [id number] [place] [address]- 7368 Jan, [facility] [place] [facility] [address] [id number] [place] [address]- 6382 Jan, [facility] [place] [facility] [address] [id number] [place] [address]- 6016 Jan, [facility] [place] [facility] [address] [id number] [place] [address]- 1772 Jan, [facility] [place] [facility] [address] [id number] [place] [address]- 5966 Jan, [facility] [place] [facility] [address] [id number] [place] [address]- 3510 Jan, [facility] [place] [facility] [address] [id number] [place] [address]- 5932 Jan, [facility] [place] [facility] [address] [id number] [place] [address]- 1767 Jan, [facility] [place] [facility] [address] [id number] [place] [address]- 2654 Jan, [facility] [place] [facility] [address] [id number] [place] [address]- 7619 Jan, [facility] [place] [facility] [address] [id number] [place] [address]- 0039 Jan, [facility] [place] [facility] [address] [id number] [place] [address]- 7176 Jan, [facility] [place] [facility] [address] [id number], [place] [address] Dec, [facility] [place] [facility] [address] [id number] [place] [address] Dec, [facility] [place] [facility] [address] [id number] [place] [address] Dec, [facility] [place] [facility] [address] [id number] [place] [address] Dec, [facility] [place] [facility] [address] [id number] [place] [address] Dec, [facility] [place] [facility] [address] [id number] [place] [address] Dec, [facility] [place] [facility] [address] [id number] [place] [address] Dec, [facility] [place] [facility] [address] [id number] [place] [address] Dec, [facility] [place] [facility] [address] [id number] [place] [address] Dec, [facility] [place] [facility] [address] [id number] [place] [address] Dec, [facility] [place] [facility] [address] [id number] [place] [address] Dec, [facility] [place] [facility] [address] [id number] [place] [address] Dec, [facility] [place] [address] [id number] [place] [address] Dec, [facility] [place] [address] [id number] [place] [address] Dec, [facility] [place] [facility] [address] [id number] [place] [address] Dec, [facility] [place] [facility] [address] [id number] [place] [address] Dec, [facility] [place] [address] [id number] [place] [address] Dec, [facility] [place] [address] [id number] [place] [address]- [address] Dec, [facility] [place] [facility] [address] [id number] [place] [address] Dec, [facility] [place] [address] [id number] [place] [address] Dec, [facility] [address] [id number] [place] [address] 31 Nov, 2011 [facility] [address] [id number] [place] [address] 31 Nov, 2011 [facility] [place] [address] [id number] [place] [address] 30 Nov, 2011 [facility] [address] [id number] [place] [address]- [address] Nov, [facility] [place] [address] [id number] [place] [address]- [address] Nov, [facility] [address] [id number] [place] [address]- [address] 24 Nov, 2011 [facility] [address] [id number] [place] [address] Nov, [facility] [place] [address] [id number] [place] [address]- [address] 15 Nov, 2011 [facility] [address] [id number] [place] [address]- [address] Nov, [facility] [address] [id number] [place] [address] 47[address] Nov, [facility] [address] [id number] [place] [address]- [address] Nov, [facility] [address] [id number] [place] [address]- 58[address] Nov, [facility] [address] [id number] [place] [address] 74[address] Nov, [facility] [address] [id number] [place] [address] 30 Oct, 2011 [facility] [address] [id number] [place] [address]- [address] 27 Oct, 2011 [facility] [address] [id number] [place] [address]- [address] 24 Oct, 2011 [facility] [address] [id number] [place] [address]36 20 Oct, 2011 [facility] [address] [id number] [place] [address]- [address] Oct, [facility] [address] [id number] [place] [address]- [address]46 Oct, [facility] [address] [id number] [place] [address]- [address] Sep, [facility] [address] [id number] [place] [address]- [address] Sep, [facility] [address] [id number] [place] [address] Sep, [facility] [address] [id number] [place] [address]- [address] Sep, [facility] [address] [id number] [place] [address] Aug, [facility] [address] [id number] [place] [address]- [address] Aug, [facility] [address] [id number] [place] [address]- [address] Aug, [facility] [address] [id number] [place] [address] Jul, [facility] [address] [id number] [place] [address]400 Jul, [facility] [address] [id number] [place] [address]- [address] Jul, [facility] [address] [id number] [place] [address]- [address] Jul, [facility] [address] [id number] [place] [address]- [address] June, [facility] [address] [id number] [place] [address]- [address] June, [facility] [address] [id number] [place] [address]- [address] June, [facility] [address] [id number] [place] [address]- [address] June, [facility] [address] [id number] [place] [address]- [address] June, [facility] [address] [id number] [place] [address] June, [facility] [address] [id number] [place] [address]- [address] May, [facility] [address] [id number] [place] [address]- 5314 May, [facility] [address] [id number] [place] [address]- 1147 May, [facility] [address] [id number] [place] [address]- [address]352 May, [facility] [address] [id number] [place] [address]- 4732 May, [facility] [address] [id number] [place] [address]- [address]162 May, [facility] [address] [id number] [place] [address]- 0956 May, [facility] [address] [id number] [place] [address]- 8658 May, [facility] [address] [id number] [place] [address]- 1537 May, [facility] [address] [id number] [place] [address]- 8868 Apr, [facility] [address] [id number] [place] [address]- 8079 Mar, [facility] [address] [id number] [place] [address]- 1810 27 Mar, 2011 [facility] [address] [id number] [place] [address]- 0653 21 Mar, 2011 [facility] [address] [id number] [place] [address]- 1482 10 Mar, 2011 [facility] [address] [address] [id number] [place] [address] Feb, [facility] [place] [facility] [address] [id number] [place] [address] Feb, [facility] [place] [facility] [address] [id number] [place] [address] Feb, [facility] [place] [facility] [address] [id number] [place] [address] Jan, [facility] [place] [facility] [address] [id number] [place] [address] Jan, [facility] [place] [facility] [address] [id number] [place] [address] Jan, [facility] [place] [facility] [address] [id number], [place] [address] 29 Dec, 2010 [facility] [place] [facility] [address] [id number], [place] [address] Dec, [facility] [place] [facility] [address] [id number][place] [address] 16 Dec, 2010 [facility] [place] [facility] [address] [id number] [place] [address] 15 Dec, 2010 [facility] [place] [facility] [address] [id number][place] [address] 31 Nov, 2010 [facility] [place] [facility] [address] [id number] [place] [address] 31 Nov, 2010 [facility] [place] [facility] [address] [id number] [place] [address] 19 Nov, 2010 [facility] [place] [facility] [address] [id number] [place] [address] 18 Nov, 2010 [facility] [place] [facility] [address] [id number] [place] [address] 13 Oct, 2010 [facility] [place] [facility] [address] [id number] [place] [address] 20 Jul, 2010 [facility] [place] [facility] [address] [id number] [place] [address] Jan, [facility] [place] [facility] [address] [id number] [place] [address] 30 Dec, 2009 [facility] [place] [facility] [address] [id number] [place] [address] Dec, [facility] [place] [facility] [address] [id number] [place] [address] Dec, [facility] [place] [facility] [address] [id number] [place] [address] Dec, [facility] [place] [facility] [address] [id number] [place] [address] Dec, [facility] [place] [facility] [address] [facility] [id number] [place] [address] Dec, [facility] [place] [facility] [address] [id number] [place] [address] Nov, [facility] [place] [facility] [address] [id number] [place] [address] Nov, [facility] [place] [facility] [address] [id number] [place] [address] Nov, [facility] [place] [facility] [address] [id number] [place] [address] Apr, [facility] [place] [facility] [address] [facility] [id number] [place] [address] Apr, [facility] [place] [facility] [address] [id number] [place] [address] 29 Jan, 2009 [facility] [place] [facility] [address] [id number] [place] [address] 28 Jan, 2009 [facility] [place] [facility] [address] [id number] [place] [address] 23 Jan, 2009 [facility] [place] [facility] [address] [id number] [place] [address]46 17 Jan, 2009 [facility] [place] [facility] [address] [id number] [place] [address] 14 Jan, 2009 [facility] [place] [facility] [address] [id number] [place] [address] Jan, [facility] [place] [facility] [address] [id number] [place] [address] 30 Dec, 2008 [facility] [place] [facility] [address] [id number] [place] [address] Dec, [facility] [place] [facility] [address] [id number] [place] [address] 18 Dec, 2008 [facility] [place] [facility] [address] [id number] [place] [address] Dec, [facility] [place] [facility] [address] [facility] [id number] [place] [address] Dec, [facility] [place] [facility] [address] [id number], [place] [address] Dec, [facility] [place] [facility] [address] [id number] [place] [address] 28 Nov, 2008 [facility] [place] [facility] [address] [id number] [place] [address]46 27 Nov, 2008 [facility] [place] [facility] [address] [id number], [place] [address] 15 Aug, 2008 [facility] [place] [facility] [address] [id number], [place] [address] Jul, [facility] [address] [facility] [id number] [place] [address] June, [facility] [address] [facility] [id number] [place] [id number] Apr, IMMUNIZATIONS No Known Immunizations SOCIAL HISTORY Never Assessed REASON FOR VISIT Requests return call/referral PLAN OF CARE VITAL SIGNS MEDICATIONS Unknown [...] of loosened hardware/hip replacement ( [facility] in [place]) 09/2008 Hospitalization History in pt rehab s/p left hip repair 09/2008-11/2008 Hospitalization History [facility] 07/2009
--- OUTSIDE RECORDS SUMMARY | 2017-10-26 13:37 | XMS REPORT ---
Author Author [facility] Address [address] [place] [address] Care Team Providers Care Costing Manager Name Role Phone KATHLEEN TRIANAY Unavailable PROBLEMS Type Condition ICD9-CM Code WVB55-VF Code Onset Dates Condition Status SNOMED Code Problem Generalized anxiety disorder F41.1 Active 400226354 Problem Seasonal allergic rhinitis due to other allergic trigger J30.89 Active 277935212 Problem Anxiety disorder, unspecified F41.9 Active 639318642 Problem 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 Active 369710299 Problem Meningioma D32.9 Active 708415876 Problem Generalized osteoarthritis M15.9 Active 032747319 Problem Dementia without behavioral disturbance, unspecified dementia type F03.90 Active 34530009 Problem Debility R53.81 Active 95041343 Problem At risk for falls Z91.81 Active 694792408 Problem Other chronic pain G89.29 Active 14854595 Problem Panic attacks F41.0 Active 105982809 Problem Acute drug withdrawal syndrome without complication F19.230 Active 378564305 Problem Anxiety F41.9 Active 31702630 ALLERGIES No Information ENCOUNTERS Encounter Location Date Diagnosis [place] [id number], [place] [address] Nov, [facility] [address], [place] [address] Aug, [facility] [id number], [place] [address] Aug, Dementia without behavioral disturbance, unspecified dementia type F03.90 [facility] [id number], [place] [address] 5[address] Aug, Dementia without behavioral disturbance, unspecified dementia type F03.90 and Anxiety F41.9 [place] [address], [place] [address] Jul, Dementia without behavioral disturbance, unspecified dementia type F03.90 [facility] [id number] [place] [address] 20620- 4779 Jul, 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 ; Generalized osteoarthritis M15.9 ; Other chronic pain G89.29 ; At risk for falls Z91.[address] [facility] [id number] [place] [address] 27895- 2654 Jul, [facility] [id number] [place] [address] 55992- 9002 June, Dementia without behavioral disturbance, unspecified dementia type F03.90 [facility] [id number] [place] [address] 72675- 7421 June, [facility] [id number] [place] [address] 96972- 9695 June, [facility] [id number] [place] [address] 72695- 5629 June, [facility] [id number] [place] [address] 41692- 1740 June, Dementia without behavioral disturbance, unspecified dementia type F03.[address] [facility] [id number] [place] [address] 03600- 3985 May, [facility] [id number] [place] [address] 58554- 5435 May, [facility] [id number] [place] [address] 05257 -9936 May, Anxiety F41.9 ; Acute drug withdrawal syndrome without complication F19.230 and Abdominal pain, unspecified abdominal location R10.9 [facility] [address], [place] [address]- 6874 May, Panic attacks F41.0 [facility] [id number] [place] [address] 47882- 6379 May, Other chronic pain G89.29 and Generalized anxiety disorder F41.1 [place] [id number] [place] [address] 46862- 6307 Apr, Housing problems Z59.9 [address] Panic attacks F41.0 [facility] [id number] [place] [address] 97353- 2849 Mar, Panic attacks F41.0 [place] [id number] [place] [address] 15908- 8197 Feb, [place] [address] 62627- 7206 Feb, Panic attacks F41.0 [place] [id number] [place] [address] 93901- 9365 Feb, Pain in right knee M25.561 ; Pain in left knee M25.562 ; Other chronic pain G89.29 ; Housing problems Z59.9 ; Dementia without behavioral disturbance, unspecified dementia type F03.90 ; Generalized anxiety disorder F41.1 and Advance directive declined by patient Z78.9 [place] [id number] [place] [address] 37915- 2155 Jan, Panic attacks F41.0 [facility] [id number] [place] [address] 72585- 9585 Jan, Panic attacks F41.0 [facility] [id number] [place] [address] 99888- 3277 Dec, Panic attacks F41.0 [facility] [address] 52057 -0655 Nov, Allergic contact dermatitis due to cosmetics L23.2 [facility] [id number] [place] [address] 23714- 4699 Nov, Panic attacks F41.0 [facility] [address] [place] [address]- 1140 08 Oct, [address] [facility] [id number] [place] [address] 10203- 2632 Sep, Panic attacks F41.0 ; Insect bite, initial encounter W57.XXXA and 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 [facility] [id number] [place] [address] 46721- 9993 Sep, [facility] [address] 49189- 1151 Aug, Generalized anxiety disorder F41.1 [place] [address] 35059- 7313 Jul, [facility] [id number] [place] [address] 55558 -0915 June, Seasonal allergic rhinitis due to other allergic trigger J30.89 [place] [id number] [place] [address] 40140- 1101 June, [facility] [id number] [place] [address] 99051- 2137 June, [facility] [id number] [place] [address] 79958 -1960 June, Dysuria R30.0 and RLQ abdominal pain R10.31 [place] [id number] [place] [address] 98533- 7894 May, Generalized anxiety disorder F41.1 ; Generalized osteoarthritis M15.9 and Dementia without behavioral disturbance, unspecified dementia type F03.90 [place] [id number] [place] [address] 73531- 5881 May, [facility] [id number] [place] [address] 15426- 5404 May, [place] [id number] [place] [address] 63562- 8055 May, [facility] [address] [address]- 1306 Apr, [facility] [id number] [place] [address], [place] [address]- 3541 Apr, Generalized anxiety disorder F41.1 [facility] [address] [address]- 0861 Apr, [facility] [id number] [place] [address] 56654- 6612 Apr, [facility] [id number] [place] [address], [place] [address]- 7986 Apr, [facility] [address] [place] [address] 14310- 6449 Apr, Generalized anxiety disorder F41.1 [facility] [address] [place] [address] 16003- 8427 Mar, [facility] [address], [place] [address]- 9059 Mar, [facility] [address], [place] [address]- 7706 Mar, [facility] [address], [place] [address]- 5751 Mar, [facility] [address], [place] [address]- 3429 Mar, Generalized anxiety disorder F41.1 [facility] [address], [place] [address]- 0277 Feb, Anxiety disorder, unspecified F41.9 [facility] [address], [place] [address]- 5562 Feb, [facility] [address], [place] [address]- 4015 Feb, [facility] [address], [place] [address]- 6845 Feb, [facility] [address] [place] [address] 30634 -9292 Feb, Urinary frequency R35.0 and Acute cystitis without hematuria N30.00 [facility] [id number] [place] [address] 07227- 3250 Feb, [facility] [id number] [place] [address] 34740- 9994 Jan, [facility] [id number] [place] [address] 51022- 2030 Jan, [facility] [id number] [place] [address] 40661- 8067 Dec, [facility] [id number] [place] [address] 39918- 8204 Dec, [facility] [id number] [place] [address] 01842- 9869 Dec, Edema, unspecified type R60.9 [facility] [id number] [place] [address] 23416- 4970 Dec, [facility] [id number] [place] [address] 37563- 4802 Dec, [facility] [id number] [place] [address] 37563- 9685 30 Oct, 2015 Generalized anxiety disorder F41.1 [facility] [address] [place] [address] 18577- 3265 [address], [address] [facility] [id number] [place] [address] 72839- 1615 [address], [address] [facility] [id number] [place] [address] 76269- 8897 [address], [address] [facility] [address] [place] [address] 27254- 0816 06 Oct, 2015 [facility] [address], [place] [address]- 7465 Aug, Anxiety disorder, unspecified F41.9 [facility] [address], [place] [address]- 5771 Jul, Anxiety disorder, unspecified F41.9 [facility] [address] [address]- 0248 Jul, Generalized anxiety disorder F41.1 [facility] [address], [place] [address]- 7904 Jul, [facility] [address] [place] [address] 27719- 4575 June, [facility] [address] [place] [address] 08230- 4931 June, [facility] [id number] [place] [address] 63942- 5602 June, [facility] [address], [place] [address]- 2105 June, [facility] [address] [place] [address] 79098- 3832 May, [facility] [address], [place] [address] -1802 May, Dementia without behavioral disturbance, unspecified dementia type F03.90 and Generalized osteoarthritis M15.9 [facility] [address], [place] [address]- 3105 May, Generalized osteoarthritis M15.9 and 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 [facility] [address], [place] [address]- 9446 Apr, [facility] [address], [place] [address]- 4838 Apr, [facility] [address], [place] [address]- 9885 Apr, [place] [id number] [place] [address] 52914- 5244 Mar, [facility] [address] 98134- 1057 Mar, [place] [address] 00367- 2157 Mar, Generalized anxiety disorder F41.1 [place] [address] 72291- 3963 Feb, Other infective acute otitis externa of right ear H60.[address] 36181- 0162 Dec, Dysuria R30.0 ; Generalized osteoarthritis M15.9 and Gastroesophageal reflux disease, esophagitis presence not specified K21.[address] 82975- 6885 Dec, [place] [address] 24176- 8688 Dec, Generalized anxiety disorder F41.1 ; Encounter for immunization Z23 and Dementia F03.90 [place] [id number] [place] [address] 29486- 9397 Nov, [place] [id number] [place] [address] 04888- 3860 Oct, [place] [address] 38985- 7343 24 Oct, 2014 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 [address], [place] [address]- 6051 Aug, Anxiety 300.00 and Chronic pain 338.29 [facility] [address], [place] [address]- 1870 Jul, [facility] [id number] [place] [address] 11379- 7066 Jul, [facility] [address], [place] [address]- 0672 June, [facility] [id number] [place] [address] 88393- 4476 June, Anxiety, generalized 300.02 ; Dementia 294.20 and No condition on [place] II V71.09 [facility] [address], [place] [address]- 8322 May, [facility] [address] [address]- 6673 May, [facility] [address] [address]- 5646 Apr, [facility] [address] [address]- 0673 Apr, [facility] [address] [address]- 7566 Apr, [facility] [address] [address]- 6296 Apr, [facility] [address] [address]- 4956 Apr, [facility] [id number] [address]- 2546 Apr, [facility] [address] 6152 Apr, [facility] [place] [facility] [address] [id number] [place] [address]- 5596 Apr, [facility] [place] [facility] [address] [id number] [place] [address]- 5274 Apr, [facility] [place] [facility] [address] [id number] [place] [address]- 6691 Apr, [facility] [place] [facility] [address] [id number] [place] [address]- 8559 Apr, [facility] [place] [facility] [address] [id number] [place] [address]- 9301 Apr, [facility] [place] [facility] [address] [id number] [place] [address]- 3881 Apr, [facility] [place] [facility] [address] [id number] [place] [address]- 0607 Apr, [facility] [place] [facility] [address] [id number] [place] [address]- 4012 Apr, [facility] [place] [facility] [address] [id number] [place] [address]- 5183 Apr, [facility] [place] [facility] [address] [id number] [place] [address]- 0394 Mar, 2014 [facility] [place] [facility] [address] [id number], [place] [address]- 8785 Mar, 2014 [facility] [place] [facility] [address] [id number], [place] [address]- 2194 Mar, 2014 [facility] [place] [facility] [address] [id number] [place] [address]- 5182 Mar, 2014 [facility] [place] [facility] [address] [id number] [place] [address]- 0445 Mar, 2014 [facility] [place] [facility] [address] [id number] [place] [address]- 6249 Mar, 2014 [facility] [place] [facility] [address] [id number] [place] [address]- 0569 23 Mar, 2014 [facility] [place] [facility] [address] [id number] [place] [address]- 2856 23 Mar, 2014 [facility] [place] [facility] [address] [id number] [place] [address]- 2546 20 Mar, 2014 [facility] [place] [facility] [address] [id number] [place] [address]- 3950 20 Mar, 2014 [facility] [place] [facility] [address] [id number] [place] [address]- 2540 18 Mar, 2014 [facility] [place] [facility] [address] [id number] [place] [address]- 5544 18 Mar, 2014 [facility] [place] [facility] [address] [facility] [id number] [place] [address]- 7174 17 Mar, 2014 [facility] [place] [facility] [address] [facility] [id number] [place] [address]- 5509 17 Mar, 2014 [facility] [place] [facility] [address] [facility] [id number] [place] [address]- 9691 17 Mar, 2014 [facility] [place] [facility] [address] [facility] [id number] [place] [address]- 8773 17 Mar, 2014 [facility] [place] [facility] [address] [facility] [id number] [place] [address]- 8976 13 Mar, 2014 [facility] [place] [facility] [address] [facility] [id number], [place] [address]- 5492 13 Mar, 2014 [facility] [place] [facility] [address] [facility] [id number] [place] [address]- 2545 13 Mar, 2014 [facility] [place] [facility] [address] [facility] [id number] [place] [address]- 9635 13 Mar, 2014 [facility] [place] [facility] [address] [facility] [id number] [place] [address]- 1871 12 Mar, 2014 [facility] [place] [facility] [address] [facility] [id number] [place] [address]- 1707 12 Mar, 2014 [facility] [place] [facility] [address] [id number] [place] [address]- 6886 Mar, 2014 [facility] [place] [facility] [address] [id number] [place] [address]- 2546 Mar, 2014 [facility] [place] [facility] [address] [id number] [place] [address]- 1886 Mar, [facility] [place] [facility] [address] [id number] [place] [address]- 2541 Mar, [facility] [place] [facility] [address] [id number] [place] [address]- 3875 Feb, [facility] [place] [facility] [address] [id number] [place] [address]- 9789 Feb, [facility] [place] [facility] [address] [id number] [place] [address]- 9333 Feb, [facility] [place] [facility] [address] [id number] [place] [address]- 9730 Feb, [facility] [place] [facility] [address] [id number] [place] [address]- 1935 Feb, [facility] [place] [facility] [address] [facility] [id number] [place] [address]- 3961 Feb, [facility] [place] [facility] [address] [id number] [place] [address]- 2542 Feb, [facility] [place] [facility] [address] [id number] [place] [address]- 2544 Feb, [facility] [place] [facility] [address] [id number] [place] [address]- 6414 Feb, [facility] [place] [facility] [address] [id number] [place] [address]- 8353 Feb, [facility] [place] [facility] [address] [id number] [place] [address]- 5033 Feb, [facility] [place] [facility] [address] [id number] [place] [address]- 5810 Feb, [facility] [place] [facility] [address] [id number] [place] [address]- 1414 Feb, [facility] [place] [facility] [address] [id number] [place] [address]- 0760 Feb, [facility] [place] [facility] [address] [id number] [place] [address]- 4326 Feb, [facility] [place] [facility] [address] [id number] [place] [address]- 4120 Jan, [facility] [place] [facility] [address] [id number] [place] [address]- 4191 Jan, [facility] [place] [facility] [address] [id number] [place] [address]- 0610 Jan, [facility] [place] [facility] [address] [id number] [place] [address]- 6792 Jan, [facility] [place] [facility] [address] [id number] [place] [address]- 2766 Jan, [facility] [place] [facility] [address] [id number] [place] [address]- 4462 Jan, [facility] [place] [facility] [address] [id number] [place] [address]- 0528 Jan, [facility] [place] [facility] [address] [id number] [place] [address]- 3994 Jan, [facility] [place] [facility] [address] [id number] [place] [address]- 2900 Jan, [facility] [place] [facility] [address] [id number] [place] [address]- 2083 Jan, [facility] [place] [facility] [address] [id number] [place] [address]- 5965 Jan, [facility] [place] [facility] [address] [id number], [place] [address]- 5691 Jan, [facility] [place] [facility] [address] [id number] [place] [address] Jan, [facility] [place] [facility] [address] [facility] [id number] [place] [address] Jan, [facility] [place] [facility] [address] [id number] [place] [address] Jan, [facility] [place] [facility] [address] [id number] [place] [address] Jan, [facility] [place] [facility] [address] [id number] [place] [id number] Jan, [facility] [place] [facility] [address] [id number] [place] [address] Jan, [facility] [place] [facility] [id number] [address] Jan, [facility] [place] [facility] [address] [id number] [place] [address] Jan, [facility] [place] [facility] [address] [id number] [place] [address] Dec, [facility] [place] [facility] [address] [id number] [place] [address] Dec, [facility] [place] [facility] [address] [id number] [place] [address] Dec, [facility] [place] [facility] [address] [id number], [place] [address] Dec, [facility] [place] [facility] [address] [id number] [place] [address] Dec, [facility] [place] [facility] [address] [id number] [place] [address] Dec, [facility] [place] [facility] [address] [facility] [id number] [place] [address] Dec, [facility] [place] [facility] [address] [id number] [place] [address] Nov, [facility] [place] [facility] [address] [id number] [place] [address] Nov, [facility] [place] [facility] [address] [id number] [place] [address] Nov, [facility] [place] [facility] [address] [id number] [place] [address] Nov, [facility] [place] [facility] [address] [id number] [place] [address] Nov, [facility] [place] [facility] [address] [id number] [place] [address] Nov, [facility] [place] [facility] [address] [id number] [place] [address] Nov, [facility] [place] [facility] [address] [id number] [place] [address] Nov, [facility] [place] [facility] [address] [id number] [place] [address] Nov, [facility] [place] [facility] [address] [id number] [place] [address] Nov, [facility] [place] [facility] [address] [id number] [place] [address] 29 Oct, 2013 [facility] [place] [facility] [address] [id number] [place] [address] 29 Oct, 2013 [facility] [place] [facility] [address] [id number] [place] [address] 15 Oct, 2013 [facility] [place] [facility] [address] [id number] [place] [address] 15 Oct, 2013 [facility] [place] [facility] [address] [id number] [place] [address] 15 Oct, 2013 [facility] [place] [facility] [address] [id number] [place] [address] 15 Oct, 2013 [facility] [place] [facility] [address] [id number] [place] [address] 10 Oct, 2013 [facility] [place] [facility] [address] [id number] [place] [address] 10 Oct, 2013 [facility] [place] [facility] [address] [id number] [place] [address] Oct, [facility] [place] [facility] [address] [id number] [place] [address] Oct, [facility] [place] [facility] [address] [id number] [place] [address] Sep, [facility] [place] [facility] [address] [id number] [place] [address] Sep, [facility] [place] [facility] [address] [id number] [place] [address] Sep, [facility] [place] [facility] [address] [id number] [place] [address] Sep, [facility] [place] [facility] [address] [id number] [place] [address] Sep, [facility] [place] [facility] [address] [id number] [place] [address] Sep, [facility] [place] [facility] [address] [id number] [place] [address] Sep, [facility] [place] [facility] [address] [id number] [place] [address] Sep, [facility] [place] [facility] [address] [id number] [place] [address] Sep, [facility] [place] [facility] [address] [id number] [place] [address] Sep, [facility] [place] [facility] [address] [id number] [place] [address] 1359 Aug, [facility] [place] [facility] [address] [id number] [place] [address] 4087 Aug, [facility] [place] [facility] [address] [id number] [place] [address]253 Aug, [facility] [place] [facility] [address] [id number] [place] [address] 3065 Aug, [facility] [place] [facility] [address] [id number] [place] [address]- 1342 Aug, [facility] [place] [facility] [address] [id number] [place] [address]- 9421 Aug, [facility] [place] [facility] [address] [id number] [place] [address] 7992 Aug, [facility] [place] [facility] [address] [id number] [place] [address]- 3203 Aug, [facility] [place] [facility] [address] [id number] [place] [address]- 6175 Aug, [facility] [place] [facility] [address] [id number] [place] [address]- 2723 Aug, [facility] [place] [facility] [address] [id number] [place] [address]- 3293 Aug, [facility] [place] [facility] [address] [id number] [place] [address]- 5620 Aug, [facility] [place] [facility] [address] [id number] [place] [address]- 3382 Jul, [facility] [place] [facility] [address] [id number] [place] [address]- 6086 Jul, [facility] [place] [facility] [address] [id number] [place] [address]- 6887 Jul, [facility] [place] [facility] [address] [id number] [place] [address]- 1084 Jul, [facility] [place] [facility] [address] [id number] [place] [address]- 1267 Jul, [facility] [place] [facility] [address] [id number] [place] [address]- 1128 Jul, [facility] [place] [facility] [address] [id number] [place] [address]- 1661 17 Jul, 2013 [facility] [place] [facility] [address] [id number] [place] [address]- 9907 Jul, [facility] [place] [facility] [address] [id number] [place] [address]- 4530 Jul, [facility] [place] [facility] [address] [id number] [place] [address]- 5456 Jul, [facility] [place] [facility] [address] [id number] [place] [address]- 5117 Jul, [facility] [place] [facility] [address] [id number] [place] [address]- 0718 Jul, [facility] [place] [facility] [address] [id number] [place] [address]- 5620 Jul, [facility] [place] [facility] [address] [id number] [place] [address]- 4186 Jul, [facility] [place] [facility] [address] [id number] [place] [address]- 8540 Jul, [facility] [place] [facility] [address] [id number] [place] [address]- 9964 Jul, [facility] [place] [facility] [address] [id number] [place] [address]- 9400 Jul, [facility] [place] [facility] [address] [id number] [place] [address]- 6515 June, [facility] [place] [facility] [address] [id number] [place] [address]- 5817 June, [facility] [place] [facility] [address] [id number] [place] [address]- 1317 June, [facility] [place] [facility] [address] [id number] [place] [address]- 3875 June, [facility] [place] [facility] [address] [id number] [place] [address]- 2320 June, [facility] [place] [facility] [address] [id number] [place] [address]- 6498 June, [facility] [place] [facility] [address] [id number] [place] [address]- 1331 June, [facility] [place] [facility] [address] [id number] [place] [address]- 8920 June, [facility] [place] [facility] [address] [id number] [place] [address]- 8063 June, [facility] [place] [facility] [address] [id number] [place] [address]- 4702 June, [facility] [place] [facility] [address] [id number] [place] [address]- 1927 June, [facility] [place] [facility] [address] [id number] [place] [address]- 2342 June, [facility] [place] [facility] [address] [id number] [place] [address]- 1054 June, [facility] [place] [facility] [address] [id number] [place] [address]- 7478 June, [facility] [place] [facility] [address] [id number] [place] [address]- 1109 June, [facility] [place] [facility] [address] [id number] [place] [address]- 3713 June, [facility] [place] [facility] [address] [id number] [place] [address]- 6200 June, [facility] [place] [facility] [address] [id number] [place] [address]- 1550 June, [facility] [place] [facility] [address] [id number] [place] [address]- 6680 June, [facility] [place] [facility] [address] [id number] [place] [address]- 8804 June, [facility] [address] [id number] [place] [address]- 8931 June, [facility] [address] [id number] [place] [address]- 3132 June, [facility] [address] [id number] [place] [address]- 9842 June, [facility] [address] [id number] [place] [address]- 9034 June, [facility] [address] [id number] [place] [address]- 3866 June, [facility] [address] [id number] [place] [address]- 3594 June, [facility] [address] [id number] [place] [address]- 7001 June, [facility] [address] [id number] [place] [address]- 0635 June, [facility] [address] [id number] [place] [address]- 5183 June, [facility] [address] [id number] [place] [address]- 8867 June, [facility] [address] [id number] [place] [address]- 7319 June, [facility] [address] [id number] [place] [address]- 1752 June, [facility] [address] [id number] [place] [address]- 7170 May, [facility] [address] [id number] [place] [address]- 5113 May, [facility] [address] [id number] [place] [address]- 4096 May, [facility] [place] [facility] [address] [id number] [place] [address]- 6238 May, [facility] [place] [facility] [address] [id number] [place] [address]- 5891 May, [facility] [place] [facility] [address] [id number] [place] [address]- 5362 May, [facility] [place] [facility] [address] [id number] [place] [address]- 6799 May, [facility] [place] [facility] [address] [id number] [place] [address]- 8360 May, [facility] [place] [facility] [address] [id number] [place] [address]- 5348 May, [facility] [place] [facility] [address] [id number] [place] [address]- 1016 May, [facility] [place] [facility] [address] [id number] [place] [address]- 0329 May, [facility] [place] [facility] [address] [id number] [place] [address]- 6396 May, [facility] [place] [facility] [address] [id number] [place] [address]- 3657 May, [facility] [place] [facility] [address] [id number] [place] [address]- 4787 May, [facility] [place] [facility] [address] [id number] [place] [address]- 5630 May, [facility] [place] [facility] [address] [id number] [place] [address]- 9049 Apr, [facility] [place] [facility] [address] [id number] [place] [address]- 9068 Apr, [facility] [place] [facility] [address] [id number] [place] [address]- 7810 Apr, [facility] [place] [facility] [address] [id number] [place] [address]- 1098 Apr, [facility] [place] [facility] [address] [id number] [place] [address]- 5916 Apr, [facility] [place] [facility] [address] [id number] [place] [address]- 6736 Apr, [facility] [place] [facility] [address] [id number] [place] [address]- 2396 Mar, [facility] [place] [facility] [address] [id number] [place] [address]- 7691 Mar, [facility] [place] [facility] [address] [id number] [place] [address]- 7436 Mar, [facility] [place] [facility] [address] [id number] [place] [address]- 5367 Mar, [facility] [place] [facility] [address] [id number] [place] [address]- 8171 Mar, [facility] [place] [facility] [address] [id number] [place] [address]- 4528 Mar, [facility] [place] [facility] [address] [id number] [place] [address]- 1474 Mar, [facility] [place] [facility] [address] [facility] [id number] [place] [address]- 3508 Mar, [facility] [place] [facility] [address] [id number] [place] [address]- 3141 Feb, [facility] [place] [facility] [address] [id number] [place] [address]- 4925 Feb, [facility] [place] [facility] [address] [id number] [place] [address]- 1669 Feb, [facility] [place] [facility] [address] [id number] [place] [address]- 5082 Feb, [facility] [place] [facility] [address] [id number] [place] [address]- 7896 Feb, [facility] [place] [facility] [address] [id number] [place] [address]- 1803 Feb, [facility] [place] [facility] [address] [id number] [place] [address]- 5779 Feb, [facility] [place] [facility] [address] [id number] [place] [address]- 5858 Feb, [facility] [place] [facility] [address] [id number] [place] [address]- 9152 Feb, [facility] [address] [id number] [place] [address]- 0859 Feb, [facility] [place] [facility] [address] [id number] [place] [address]- 6788 Jan, [facility] [place] [facility] [address] [id number] [place] [address]- 5937 Jan, [facility] [place] [facility] [address] [id number] [place] [address]- 5083 Jan, [facility] [place] [facility] [address] [id number] [place] [address]- 9372 Jan, [facility] [place] [facility] [address] [id number] [place] [address]- 2869 Jan, [facility] [place] [facility] [address] [id number] [place] [address]- 4917 Jan, [facility] [place] [facility] [address] [id number] [place] [address]- 4070 Jan, [facility] [place] [facility] [address] [id number] [place] [address]- 4748 Jan, [facility] [place] [facility] [address] [id number] [place] [address]- 8529 Dec, [facility] [place] [facility] [address] [id number] [place] [address]- 1691 Dec, [facility] [place] [facility] [address] [id number], [place] [address]- 2994 Dec, [facility] [place] [facility] [address] [id number] [place] [address]- 3120 Dec, [facility] [place] [facility] [address] [id number] 1029 Dec, [facility] [place] [facility] [address] [id number] [place] [address]- 7087 Dec, [facility] [place] [facility] [address] [id number] [place] [address]- 4594 Dec, [facility] [place] [facility] [address] [id number] [place] [address]- 1543 Dec, [facility] [place] [facility] [address] [id number] [place] [address]- 7082 Nov, [facility] [place] [facility] [address] [id number] [place] [address]- 6219 Nov, [facility] [place] [facility] [address] [id number] [place] [address]- 6275 Nov, [facility] [place] [facility] [address] [id number], [place] [address]- 2354 Nov, [facility] [place] [facility] [address] [id number], [place] [address]- 4057 Nov, [facility] [place] [facility] [address] [id number], [place] [address]- 7774 Nov, [facility] [place] [facility] [address] [id number], [place] [address]- 4032 07 Nov, 2012 [facility] [place] [facility] [address] [id number], [place] [address]- 1975 10 Oct, 2012 [facility] [place] [facility] [address] [id number] [place] [address]- 1571 10 Oct, 2012 [facility] [place] [facility] [address] [id number] [place] [address]- 2989 05 Oct, 2012 [facility] [place] [facility] [address] [id number] [place] [address]- 1231 Sep, [facility] [address] [id number] [place] [address]- 1417 Sep, [facility] [place] [facility] [address] [id number] [place] [address]- 5806 Sep, [facility] [place] [facility] [address] [id number] [place] [address]- 6156 Sep, [facility] [place] [facility] [address] [id number] [place] [address]- 3926 Aug, [facility] [place] [facility] [address] [id number] [place] [address]- 3614 Aug, [facility] [place] [facility] [address] [id number] [place] [address]- 0281 Aug, [facility] [place] [facility] [address] [id number] [place] [address]- 1343 Aug, [facility] [address] [id number] [place] [address]- 7795 Aug, [facility] [place] [facility] [address] [id number] [place] [address]- 0419 Jul, [facility] [place] [facility] [address] [id number] [place] [address]- 6295 Jul, [facility] [place] [facility] [address] [id number] [place] [address]- 0279 Jul, [facility] [place] [facility] [address] [id number] [place] [address]- 6667 Jul, [facility] [place] [facility] [address] [id number] [place] [address]- 8985 Jul, [facility] [place] [facility] [address] [id number] [place] [address]- 5216 June, [facility] [place] [facility] [address] [id number] [place] [address]- 2500 June, [facility] [address] [id number] [place] [address]- 6719 June, [facility] [address] [id number] [place] [address]- 0269 June, [facility] [address] [id number] [place] 4102 June, [facility] [address] [id number] [place] [address]- 1185 May, [facility] [address] [id number] [place] [address]- 4775 May, [facility] [address] [id number] [place] [address]- 4713 May, [facility] [address] [id number] [place] [address]- 4126 May, [facility] [address] [id number] [place] [address]- 7462 May, [facility] [address] [id number] [place] [address]- 2770 May, [facility] [address] [id number] [place] [address]- 9758 May, [facility] [place] [facility] [address] [id number] [place] [address]- 5884 Apr, [facility] [place] [facility] [address] [id number], [place] [address]- 8156 Apr, [facility] [place] [facility] [address] [id number] [place] [address]- 0638 Apr, [facility] [place] [facility] [address] [id number] [place] [address]- 1838 Mar, [facility] [place] [facility] [address] [id number] [place] [address]- 2711 Mar, [facility] [place] [facility] [address] [id number] [place] [address]- 4865 20 Mar, 2012 [facility] [address] [id number] [place] [address]- 7296 19 Mar, 2012 [facility] [address] [id number] [place] [address] 2546 13 Mar, 2012 [facility] [address] [id number] [place] [address] 2546 13 Mar, 2012 [facility] [address] [id number] [place] [address] 2541 07 Mar, 2012 [facility] [address] [id number] [place] [address]- 2646 07 Mar, 2012 [facility] [address] [id number] [place] [address]- 7834 31 Feb, 2012 [facility] [address] [id number] [place] [address]- 2273 29 Feb, 2012 [facility] [address] [id number] [place] [address]- 1291 Feb, [facility] [address] [id number] [place] [address]- 0990 Feb, [facility] [address] [id number] [place] [address]- 6019 18 Feb, 2012 [facility] [address] [id number] [place] [address] 254 15 Feb, 2012 [facility] [address] [id number] [place] [address] 2547 14 Feb, 2012 [facility] [place] [facility] [address] [id number] [place] [address] 2546 Jan, [facility] [place] [facility] [address] [id number] [place] [address] 2546 Jan, [facility] [address] [id number] [place] [address]- 2553 Jan, [facility] [place] [facility] [address] [id number] [place] [address]- 2126 Jan, [facility] [place] [facility] [address] [id number] [place] [address]- 9706 Jan, [facility] [place] [facility] [address] [id number] [place] [address]- 6539 Jan, [facility] [place] [facility] [address] [id number] [place] [address]- 5377 Jan, [facility] [place] [facility] [address] [id number] [place] [address]- 3783 Jan, [facility] [place] [facility] [address] [id number] [place] [address]- 2907 Jan, [facility] [place] [facility] [address] [id number] [place] [address]- 8874 Jan, [facility] [place] [facility] [address] [id number] [place] [address]- 2898 Jan, [facility] [place] [facility] [address] [id number] [place] [address]- 6771 Jan, [facility] [place] [facility] [address] [id number] [place] [address]- 1520 Jan, [facility] [place] [facility] [address] [id number] [place] [address]- 1368 Jan, [facility] [place] [facility] [address] [id number], [place] [address]- 2700 Dec, [facility] [place] [facility] [address] [id number] [place] [address]- 2065 Dec, [facility] [place] [facility] [address] [id number] [place] [address]- 8097 Dec, [facility] [place] [facility] [address] [id number] [place] [address]- 6426 Dec, [facility] [place] [facility] [address] [id number] [place] [address]- 7575 Dec, [facility] [place] [facility] [address] [id number] [place] [address]- 2961 Dec, [facility] [place] [facility] [address] [id number] [place] [address]- 8486 Dec, [facility] [place] [facility] [address] [id number] [place] [address]- 3689 Dec, [facility] [place] [facility] [address] [id number] [place] [address]- 1483 Dec, [facility] [place] [facility] [address] [id number] [place] [address]- 8532 Dec, [facility] [place] [facility] [address] [id number] [place] [address]- 0717 Dec, [facility] [place] [facility] [address] [id number] [place] [address]- 2480 Dec, [facility] [place] [facility] [address] [id number] [place] [address]- 5173 Dec, [facility] [place] [facility] [address] [id number] [place] [address]- 2739 Dec, [facility] [place] [facility] [address] [id number] [place] [address]- 0353 Dec, [facility] [place] [facility] [address] [id number] [place] [address]- 2959 Dec, [facility] [place] [facility] [address] [id number] [place] [address]- 254 Dec, [facility] [place] [facility] [address] [id number] [place] [address]- 3169 Dec, [facility] [place] [facility] [address] [id number] [place] [address]- [address] Dec, [facility] [place] [facility] [address] [id number] [place] [address] Dec, [facility] [place] [facility] [address] [id number] [place] [address] 31 Nov, 2011 [facility] [place] [facility] [address] [id number] [place] [address] 31 Nov, 2011 [facility] [place] [facility] [address] [id number] [place] [address] 1409 30 Nov, 2011 [facility] [place] [facility] [address] [id number] [place] [address] Nov, [facility] [place] [facility] [address] [id number] [place] [address] Nov, [facility] [place] [facility] [address] [id number] [place] [address] 24 Nov, 2011 [facility] [place] [facility] [address] [id number] [place] [address] Nov, [facility] [place] [facility] [address] [id number] [place] [address] 15 Nov, 2011 [facility] [place] [facility] [address] [id number] [place] [address] Nov, [facility] [place] [facility] [address] [id number] [place] [address] Nov, [facility] [place] [facility] [address] [id number] [place] [address] Nov, [facility] [place] [facility] [address] [id number] [place] [address] 17[address] Nov, [facility] [place] [facility] [address] [id number] [place] [address] 8280 Nov, [facility] [place] [facility] [address] [id number] [place] [address] 30 Oct, 2011 [facility] [place] [facility] [address] [id number] [place] [address] 27 Oct, 2011 [facility] [place] [facility] [address] [id number] [place] [address] 4863 24 Oct, 2011 [facility] [place] [facility] [address] [id number] [place] [address] 20 Oct, 2011 [facility] [place] [facility] [address] [id number] [place] [address] 9[address] Oct, [facility] [place] [facility] [address] [id number] [place] [address] 2876 Oct, [facility] [place] [facility] [address] [id number] [place] [address] Sep, [facility] [place] [facility] [address] [id number] [place] [address] Sep, [facility] [place] [facility] [address] [id number] [place] [address] Sep, [facility] [place] [facility] [address] [id number] [place] [address]889 Sep, [facility] [place] [facility] [address] [id number] [place] [address]29 Aug, [facility] [place] [facility] [address] [id number] [place] [address] 6770 Aug, [facility] [place] [facility] [address] [id number] [place] [address] 5610 Aug, [facility] [place] [facility] [address] [id number] [place] [address]26 Jul, [facility] [place] [facility] [address] [id number] [place] [address] Jul, [facility] [place] [facility] [address] [id number] [place] [address] 3[address] Jul, [facility] [place] [facility] [address] [id number] [place] [address] Jul, [facility] [place] [facility] [address] [id number] [place] [address] 1417 June, [facility] [place] [facility] [address] [id number] [place] [address] 9898 June, [facility] [address] [id number] [place] [address] 2857 June, [facility] [address] [id number] [place] [address] June, [facility] [address] [id number] [place] [address] 9298 June, [facility] [address] [id number] [place] [address] 7042 June, [facility] [address] [id number] [place] [address] 0235 May, [facility] [address] [id number] [place] [address] 2168 May, [facility] [address] [id number] [place] [address] 59[address] May, [facility] [address] [id number] [place] [address] May, [facility] [address] [id number] [place] [address] 9800 May, [facility] [address] [id number] [place] [address]- 1334 May, [facility] [address] [id number] [place] [address]- 3768 May, [facility] [address] [id number] [place] [address] 8963 May, [facility] [place] [facility] [address] [id number] [place] [address]704 May, [facility] [address] [id number] [place] [address] 4703 Apr, [facility] [address] [id number] [place] [address] Mar, [facility] [address] [id number] [place] [address] 27 Mar, 2011 [facility] [place] [facility] [address] [id number] [place] [address]- [address] 21 Mar, 2011 [facility] [place] [facility] [address] [id number] [place] [address]- 7316 10 Mar, 2011 [facility] [place] [facility] [address] [id number] [place] [address] 7846 Feb, [facility] [place] [facility] [address] [id number] [place] [address] 1470 Feb, [facility] [place] [facility] [address] [id number] [place] [address] 8543 Feb, [facility] [place] [facility] [address] [id number] [place] [address]- 8838 Jan, [facility] [place] [facility] [address] [id number] [place] [address]- 9465 Jan, [facility] [place] [facility] [address] [id number] [place] [address] 5445 Jan, [facility] [place] [facility] [address] [id number], [place] [address] 29 Dec, 2010 [facility] [place] [facility] [address] [id number], [place] [address] Dec, [facility] [place] [facility] [address] [id number], [place] [address] 16 Dec, 2010 [facility] [place] [facility] [address] [id number] [place] [address] 2338 15 Dec, 2010 [facility] [place] [facility] [address] [id number], [place] [address]47 31 Nov, 2010 [facility] [place] [facility] [address] [id number] [place] [address] 8537 31 Nov, 2010 [facility] [place] [facility] [address] [id number] [place] [address]- 9985 19 Nov, 2010 [facility] [place] [facility] [address] [id number] [place] [address] 3763 18 Nov, 2010 [facility] [place] [facility] [address] [id number] [place] [address] 0476 13 Oct, 2010 [facility] [place] [facility] [address] [id number] [place] [address]- 4436 20 Jul, 2010 [facility] [place] [facility] [address] [id number] [place] [address] Jan, [facility] [place] [facility] [address] [id number] [place] [address] 30 Dec, 2009 [facility] [place] [facility] [address] [id number] [place] [address] Dec, [facility] [place] [facility] [address] [id number] [place] [address] Dec, [facility] [place] [facility] [address] [id number] [place] [address] Dec, [facility] [place] [facility] [address] [id number] [place] [address] Dec, [facility] [place] [facility] [address] [facility] [id number] [place] [address] Dec, [facility] [place] [facility] [address] [id number] [place] [address] Nov, [facility] [place] [facility] [address] [id number] [place] [address] Nov, [facility] [place] [facility] [address] [id number] [place] [address] Nov, [facility] [place] [facility] [address] [id number] [place] [address] Apr, [facility] [place] [facility] [address] [facility] [id number] [place] [address] Apr, [facility] [place] [facility] [address] [id number] [place] [address] 29 Jan, 2009 [facility] [place] [facility] [address] [id number] [place] [address] 28 Jan, 2009 [facility] [place] [facility] [address] [id number] [place] [address] 23 Jan, 2009 [facility] [place] [facility] [address] [id number] [place] [address] 17 Jan, 2009 [facility] [place] [facility] [address] [id number] [place] [address] 14 Jan, 2009 [facility] [place] [facility] [address] [id number] [place] [address] Jan, [facility] [place] [facility] [address] [id number] [place] [address] 30 Dec, 2008 [facility] [place] [facility] [address] [id number] [place] [address] Dec, [facility] [place] [facility] [address] [id number] [place] [address] 18 Dec, 2008 [facility] [place] [facility] [address] [id number] [place] [address] Dec, [facility] [place] [facility] [address] [facility] [id number] [place] [address] Dec, [facility] [place] [facility] [address] [id number], [place] [address] Dec, [facility] [place] [facility] [address] [id number] [place] [address] 28 Nov, 2008 [facility] [place] [facility] [address] [id number] [place] [address] 27 Nov, 2008 [facility] [place] [facility] [address] [id number], [place] [address] 15 Aug, 2008 [facility] [place] [facility] [address] [id number], [place] [address] Jul, [facility] [address] [facility] [id number] [place] [address] June, [facility] [address] [facility] [id number] [place] [id number] Apr, IMMUNIZATIONS No Known Immunizations SOCIAL HISTORY Never Assessed REASON FOR VISIT PLAN OF CARE VITAL SIGNS MEDICATIONS Unknown [...] of loosened hardware/hip replacement ( [facility] in [place]) 09/2008 Hospitalization History in pt rehab s/p left hip repair 09/2008-11/2008 Hospitalization History [facility] 07/2009
--- OUTSIDE RECORDS SUMMARY | 2017-10-26 13:38 | XMS REPORT ---
Author Author [facility] Address [address] [place] [address] Care Team Providers Care Non Morse Intercept Technician Name Role Phone RAMILASHWETA ANANDA Unavailable PROBLEMS Type Condition ICD9-CM Code [id number] Code Onset Dates Condition Status SNOMED Code Problem Generalized anxiety disorder F41.1 Active 539587632 Problem Seasonal allergic rhinitis due to other allergic trigger J30.89 Active 970395022 Problem Anxiety disorder, unspecified F41.9 Active 108793077 Problem 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 Active 040910161 Problem Meningioma D32.9 Active 256353443 Problem Generalized osteoarthritis M15.9 Active 637685820 Problem Dementia without behavioral disturbance, unspecified dementia type F03.90 Active 61779871 Problem Debility R53.81 Active 59024548 Problem At risk for falls Z91.81 Active 506208406 Problem Other chronic pain G89.29 Active 79842520 Problem Panic attacks F41.0 Active 819536228 Problem Acute drug withdrawal syndrome without complication F19.230 Active 337768638 Problem Anxiety F41.9 Active 82307565 ALLERGIES No Known Allergies ENCOUNTERS Encounter Location Date Diagnosis [place] [id number], [place] [address] Nov, [facility] [address], [place] [address] Aug, [facility] [id number], [place] [address] 44[address] Aug, Dementia without behavioral disturbance, unspecified dementia type F03.90 [facility] [id number], [place] [address] 66[address] Aug, Dementia without behavioral disturbance, unspecified dementia type F03.90 and Anxiety F41.9 [facility] [address], [place] [address] Jul, Dementia without behavioral disturbance, unspecified dementia type F03.90 [facility] [id number] [place] [address] 63424- 6107 Jul, 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 ; Generalized osteoarthritis M15.9 ; Other chronic pain G89.29 ; At risk for falls Z91.81 and Debility R53.81 [facility] [id number] [place] [address] 27348- 5469 Jul, [facility] [id number] [place] [address] 04410- 8083 June, Dementia without behavioral disturbance, unspecified dementia type F03.90 [facility] [id number], [place] [address] 2308 June, [facility] [id number] [place] [address] 55585- 1283 June, [facility] [id number] [place] [address] 25293- 2188 June, [facility] [id number] [place] [address] 38595- 3465 June, Dementia without behavioral disturbance, unspecified dementia type F03.90 and Anxiety F41.9 [place] [address], [place] [address] 1874 May, [facility] [id number] [place] [address] 19580- 4725 May, [facility] [id number] [place] [address] 83445 -0051 May, Anxiety F41.9 ; Acute drug withdrawal syndrome without complication F19.230 and Abdominal pain, unspecified abdominal location R10.9 [facility] [address], [place] [address] 2856 May, Panic attacks F41.0 [facility] [id number] [place] [address] 01887- 5865 May, Other chronic pain G89.29 and Generalized anxiety disorder F41.1 [place] [id number] [place] [address] 56171- 7617 Apr, Housing problems Z59.9 and Panic attacks F41.0 [facility] [id number] [place] [address] 52759- 9543 Mar, Panic attacks F41.0 [place] [id number] [place] [address] 89692- 3892 Feb, [place] [id number] [place] [address] 66929- 7717 Feb, Panic attacks F41.0 [place] [id number] [place] [address] 22279- 5514 Feb, Pain in right knee M25.561 ; Pain in left knee M25.562 ; Other chronic pain G89.29 ; Housing problems Z59.9 ; Dementia without behavioral disturbance, unspecified dementia type F03.90 ; Generalized anxiety disorder F41.1 and Advance directive declined by patient Z78.9 [place] [id number] [place] [address] 15368- 7195 Jan, Panic attacks F41.0 [facility] [id number] [place] [address] 96208- 4614 Jan, Panic attacks F41.0 [facility] [id number] [place] [address] 41515- 4616 Dec, Panic attacks F41.0 [facility] [id number] [place] [address] 10326 -9393 Nov, Allergic contact dermatitis due to cosmetics L23.2 [facility] [id number] [place] [address] 90395- 1544 Nov, Panic attacks F41.0 [place] [address] [place] [address]- 0359 Oct, Panic attacks F41.0 [facility] [id number] [place] [address] 26547- 5504 Sep, Panic attacks F41.0 ; Insect bite, initial encounter W57.XXXA and 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 [place] [address] 79651- 2335 Sep, [facility] [address] 63085- 5550 Aug, Generalized anxiety disorder F41.1 [place] [address] 89957- 6193 Jul, [facility] [id number] [place] [address] 10361 -0275 June, Seasonal allergic rhinitis due to other allergic trigger J30.89 [place] [id number] [place] [address] 50108- 3669 June, [place] [id number] [place] [address] 74975- 0172 June, [facility] [id number] [place] [address] 31358 -4384 June, Dysuria R30.0 and RLQ abdominal pain R10.31 [place] [id number] [place] [address] 73214- 6916 May, Generalized anxiety disorder F41.1 ; Generalized osteoarthritis M15.9 and Dementia without behavioral disturbance, unspecified dementia type F03.90 [place] [id number] [place] [address] 10604- 7515 May, [place] [id number] [place] [address] 56048- 9732 May, [place] [address] 57003- 9958 May, [facility] [address] [place] [address]- 8895 Apr, [facility] [id number] [place] [address], [place] 5722 Apr, Generalized anxiety disorder F41.1 [facility] [address] [place] [address]- 4641 Apr, [facility] [id number] [place] [address] 58401- 5634 Apr, [facility] [address] [place] [address]- 1630 Apr, [facility] [id number] [place] [address] 781761- 6397 Apr, Generalized anxiety disorder F41.1 [facility] [id number] [place] [address] 31282- 5388 Mar, [facility] [address] [place] [address]- 1657 Mar, [facility] [address], [place] [address]- 7244 Mar, [facility] [address], [place] [address]- 9564 Mar, [facility] [address], [place] [address]- 6438 Mar, Generalized anxiety disorder F41.1 [facility] [address], [place] [address]- 4363 Feb, Anxiety disorder, unspecified F41.9 [facility] [address], [place] [address]- 7316 Feb, [facility] [address], [place] [address]- 4334 Feb, [facility] [id number] [place] [address] 27916- 9361 Feb, [facility] [address], [place] [address] -1043 Feb, Urinary frequency R35.0 and Acute cystitis without hematuria N30.00 [facility] [id number], [place] [address]- 9788 Feb, [facility] [id number] [place] [address] 81267- 0335 Jan, [facility] [id number] [place] [address] 11230- 4217 Jan, [facility] [id number] [place] [address] 85683- 1750 Dec, [facility] [id number] [place] [address] 36500- 6784 Dec, [facility] [id number] [place] [address] 23563- 4533 Dec, Edema, unspecified type R60.9 [facility] [id number] [place] [address] 55524- 9760 Dec, [facility] [id number] [place] [address] 93703- 2708 Dec, [facility] [id number] [place] [address] 42826- 7097 30 Oct, 2015 Generalized anxiety disorder F41.1 [facility] [address], [place] [address]- 9729 20 Oct, 2015 [facility] [id number] [place] [address] 55343- 1789 16 Oct, 2015 [facility] [id number] [place] [address] 20376- 4608 15 Oct, 2015 [facility] [address], [place] [address]- 3038 06 Oct, 2015 [facility] [address], [place] [address]- 4312 Aug, Anxiety disorder, unspecified F41.9 [facility] [address], [place] [address]- 0775 Jul, Anxiety disorder, unspecified F41.9 [facility] [address] [place] [address]- 1135 Jul, Generalized anxiety disorder F41.1 [facility] [address], [place] [address]- 0089 Jul, [facility] [id number] [place] [address] 55570- 5527 June, [facility] [id number], [place] [address]- 6107 June, [facility] [id number] [place] [address] 44686- 7361 June, [facility] [address], [place] [address]- 1644 June, [facility] [id number] [place] [address] 15622- 7119 May, [facility] [address], [place] [address] -4366 May, Dementia without behavioral disturbance, unspecified dementia type F03.90 and Generalized osteoarthritis M15.9 [facility] [address], [place] [address]- 4120 May, Generalized osteoarthritis M15.9 and 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 [facility] [address], [place] [address]- 0424 Apr, [facility] [address], [place] [address]- 1530 Apr, [facility] [address], [place] [address]- 5431 Apr, [place] [id number] [place] [address] 81698- 2303 Mar, [facility] [address] 61018- 6660 Mar, [place] [address] 77149- 3249 Mar, Generalized anxiety disorder F41.1 [place] [address] 53181- 6625 Feb, Other infective acute otitis externa of right ear H60.391 [place] [address] 17416- 8233 Dec, Dysuria R30.0 ; Generalized osteoarthritis M15.9 and Gastroesophageal reflux disease, esophagitis presence not specified K21.[address] 02381- 2592 Dec, [address] 72327- 2965 Dec, Generalized anxiety disorder F41.1 ; Encounter for immunization Z23 and Dementia F03.90 [place] [id number] [place] [address] 85613- 1233 Nov, [place] [id number] [place] [address] 22555- 6848 Oct, [place] [address] 53187- 5116 24 Oct, 2014 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 ; Chronic pain 338.29 ; Anxiety 300.00 and Dementia 294.20 [place] [id number] [place] [address] 37577- 3978 Oct, [place] [id number] [place] [address] 03668- 7442 Aug, Generalized anxiety disorder 300.02 and Dementia 294.20 [place] [address], [place] [address]- 5952 Aug, [facility] [id number] [place] [address] 37011- 8602 Aug, Anxiety 300.00 and Chronic pain 338.29 [facility] [address], [place] [address]- 2911 Jul, [facility] [id number] [place] [address] 77351- 9053 Jul, [facility] [id number] [place] [address] 17564- 9279 June, [facility] [id number] [place] [address] 19760- 2890 June, Anxiety, generalized 300.02 ; Dementia 294.20 and No condition on Kenney II V71.09 [facility] [id number] [place] [address] 67169- 0643 May, [facility] [address], [place] [address]- 5372 May, [facility] [id number] 3921 Apr, [facility] [address] 3203 Apr, [facility] [address], [place] [address]- 3244 Apr, [facility] [address], [place] [address]- 5061 Apr, [facility] [address], [place] [address]- 0820 Apr, [facility] [address], [place] [address]- 1046 Apr, [facility] [address], [place] [address]- 0917 Apr, [facility] [place] [facility] [address] [id number] [place] [address]- 6627 Apr, [facility] [place] [facility] [address] [id number] [place] [address]- 5450 Apr, [facility] [place] [facility] [address] [id number] [place] [address]- 4254 Apr, [facility] [place] [facility] [address] [id number] [place] [address]- 5598 Apr, [facility] [place] [facility] [address] [id number] [place] [address]- 8816 Apr, [facility] [place] [facility] [address] [id number] [place] [address]- 3185 Apr, [facility] [place] [facility] [address] [id number] [place] [address]- 3211 Apr, [facility] [place] [facility] [address] [id number] [place] [address]- 7681 Apr, [facility] [place] [facility] [address] [id number] [place] [address]- 9920 Apr, [facility] [place] [facility] [address] [id number] [place] [address]- 3605 Mar, [facility] [place] [facility] [address] [id number] [address]- 6848 Mar, 2014 [facility] [place] [facility] [address] [id number], [place] [address]- 1120 Mar, 2014 [facility] [place] [facility] [address] [id number] [place] [address]- 5305 Mar, 2014 [facility] [place] [facility] [address] [id number] [place] [address]- 8664 Mar, [facility] [place] [facility] [address] [id number] [place] [address]- 7675 Mar, [facility] [place] [facility] [address] [id number] [place] [address]- 8191 23 Mar, 2014 [facility] [place] [facility] [address] [id number] [place] [address]- 5716 23 Mar, 2014 [facility] [place] [facility] [address] [id number] [place] [address]- 2546 20 Mar, 2014 [facility] [place] [facility] [address] [id number] [place] [address]- 0520 20 Mar, 2014 [facility] [place] [facility] [address] [id number] [place] [address]- 2549 18 Mar, 2014 [facility] [place] [facility] [address] [id number] [place] [address]- 4585 18 Mar, 2014 [facility] [place] [facility] [address] [facility] [id number] [place] [address]- 8513 17 Mar, 2014 [facility] [place] [facility] [address] [facility] [id number] [place] [address]- 9013 17 Mar, 2014 [facility] [place] [facility] [address] [facility] [id number] [place] [address]- 3689 17 Mar, 2014 [facility] [place] [facility] [address] [facility] [id number] [place] [address]- 0178 17 Mar, 2014 [facility] [place] [facility] [address] [facility] [id number] [place] [address]- 7520 13 Mar, 2014 [facility] [place] [facility] [address] [facility] [id number] [address]- 2543 13 Mar, 2014 [facility] [place] [facility] [address] [facility] [id number] [place] [address]- 2542 13 Mar, 2014 [facility] [place] [facility] [address] [id number] [place] [address]- 0305 13 Mar, 2014 [facility] [place] [facility] [address] [facility] [id number] [place] [address]- 3860 12 Mar, 2014 [facility] [place] [facility] [address] [facility] [id number] [place] [address]- 1875 12 Mar, 2014 [facility] [place] [facility] [address] [id number] [place] [address]- 5096 Mar, 2014 [facility] [place] [facility] [address] [id number] [place] [address] 2546 Mar, 2014 [facility] [place] [facility] [address] [id number] [place] [address]- 5386 Mar, [facility] [place] [facility] [address] [id number] [place] [address]- 2548 Mar, [facility] [place] [facility] [address] [id number] [place] [address]- 3179 Feb, [facility] [place] [facility] [address] [id number] [place] [address]- 8488 Feb, [facility] [place] [facility] [address] [id number] [place] [address] 2542 Feb, [facility] [place] [facility] [address] [id number] [place] [address]- 5111 Feb, [facility] [place] [facility] [address] [id number] [place] [address]- 4761 Feb, [facility] [place] [facility] [address] [id number] [place] [address]- 2687 Feb, [facility] [place] [facility] [address] [id number] [place] [address] 254 Feb, [facility] [place] [facility] [address] [id number] [place] [address]- 2544 Feb, [facility] [place] [facility] [address] [id number] [place] [address]- 6278 Feb, [facility] [place] [facility] [address] [id number] [place] [address]- 2541 Feb, [facility] [place] [facility] [address] [id number] [place] [address]- 9947 Feb, [facility] [place] [facility] [address] [id number] [place] [address]- 7641 Feb, [facility] [place] [facility] [address] [id number] [place] [address]- 1350 Feb, [facility] [place] [facility] [address] [id number] [place] [address]- 0826 Feb, [facility] [place] [facility] [address] [id number] [place] [address]- 5912 Feb, [facility] [place] [facility] [address] [id number] [place] [address]- 5566 Jan, [facility] [place] [facility] [address] [id number] [place] [address]- 5266 Jan, [facility] [place] [facility] [address] [id number] [place] [address]- 6191 Jan, [facility] [place] [facility] [address] [id number] [place] [address]- 7250 Jan, [facility] [place] [facility] [address] [id number] [place] [address]- 1244 Jan, [facility] [place] [facility] [address] [id number] [place] [address]- 9430 Jan, [facility] [place] [facility] [address] [id number] [place] [address]- 7846 Jan, [facility] [place] [facility] [address] [id number] [place] [address]- 0775 Jan, [facility] [place] [facility] [address] [id number] [place] [address]- 0260 Jan, [facility] [place] [facility] [address] [id number] [place] [address]- 0904 Jan, [facility] [place] [facility] [address] [id number] [place] [address]- 6169 Jan, [facility] [place] [facility] [address] [id number] [place] [address]- 1933 Jan, [facility] [place] [facility] [address] [id number] [place] [address]- 3991 Jan, [facility] [place] [facility] [address] [facility] [id number] [place] [address]- 2983 Jan, [facility] [place] [facility] [address] [id number] [place] [address] Jan, [facility] [place] [facility] [address] [id number] [place] [address] Jan, [facility] [place] [facility] [address] [id number] [place] [id number] Jan, [facility] [place] [facility] [address] [facility] [id number] [place] [address] Jan, [facility] [place] [facility] [id number] [place] [address] Jan, [facility] [place] [facility] [address] [id number] [place] [address] Jan, [facility] [place] [facility] [address] [id number] [place] [address] Dec, [facility] [place] [facility] [id number] [place] [address] Dec, [facility] [place] [facility] [address] [id number] [place] [address] Dec, [facility] [place] [facility] [address] [id number], [place] [address] Dec, [facility] [place] [facility] [address] [id number] [place] [address] Dec, [facility] [place] [facility] [address] [facility] [id number] [place] [address] Dec, [facility] [place] [facility] [address] [facility] [id number] [place] [address] Dec, [facility] [place] [facility] [address] [id number] [place] [address] Nov, [facility] [place] [facility] [address] [id number] [place] [address] Nov, [facility] [place] [facility] [address] [id number] [place] [address] Nov, [facility] [place] [facility] [address] [id number] [place] [address] Nov, [facility] [place] [facility] [address] [id number] [place] [address] Nov, [facility] [place] [facility] [address] [id number] [place] [address] Nov, [facility] [place] [facility] [address] [id number] [place] [address] Nov, [facility] [place] [facility] [address] [id number] [place] [address] Nov, [facility] [place] [facility] [address] [id number] [place] [address] Nov, [facility] [place] [facility] [address] [id number] [place] [address] Nov, [facility] [place] [facility] [address] [id number] [place] [address] 29 Oct, 2013 [facility] [place] [facility] [address] [id number] [place] [address] 29 Oct, 2013 [facility] [place] [facility] [address] [id number] [place] [address] 15 Oct, 2013 [facility] [place] [facility] [address] [id number] [place] [address] 15 Oct, 2013 [facility] [place] [facility] [address] [id number] [place] [address] 15 Oct, 2013 [facility] [place] [facility] [address] [id number] [place] [address] 15 Oct, 2013 [facility] [place] [facility] [address] [id number] [place] [address] 10 Oct, 2013 [facility] [place] [facility] [address] [id number] [place] [address] 10 Oct, 2013 [facility] [place] [facility] [address] [id number] [place] [address] Oct, [facility] [place] [facility] [address] [id number] [place] [address] Oct, [facility] [place] [facility] [address] [id number] [place] [address] Sep, [facility] [place] [facility] [address] [id number] [place] [address] Sep, [facility] [place] [facility] [address] [id number] [place] [address] Sep, [facility] [place] [facility] [address] [id number] [place] [address] Sep, [facility] [place] [facility] [address] [id number] [place] [address] Sep, [facility] [place] [facility] [address] [id number] [place] [address] Sep, [facility] [place] [facility] [address] [id number] [place] [address] Sep, [facility] [place] [facility] [address] [id number] [place] [address] Sep, [facility] [place] [facility] [address] [id number] [place] [address] Sep, [facility] [place] [facility] [address] [id number] [place] [address] 15[address] Sep, [facility] [place] [facility] [address] [id number] [place] [address] 57[address] Aug, [facility] [place] [facility] [address] [id number] [place] [address] Aug, 2013 [facility] [place] [facility] [address] [id number] [place] [address] Aug, [facility] [place] [facility] [address] [id number] [place] [address]- 7919 Aug, [facility] [place] [facility] [address] [id number] [place] [address]- 0009 Aug, 2013 [facility] [place] [facility] [address] [id number] [place] [address] Aug, 2013 [facility] [place] [facility] [address] [id number] [place] [address]- [address] Aug, [facility] [place] [facility] [address] [id number] [place] [address] Aug, [facility] [place] [facility] [address] [id number] [place] [address]- 6176 Aug, [facility] [place] [facility] [address] [id number] [place] [address]- 5277 Aug, [facility] [place] [facility] [address] [id number] [place] [address]- 5033 Aug, [facility] [place] [facility] [address] [id number] [place] [address]- 4964 Aug, [facility] [place] [facility] [address] [id number] [place] [address]- 0860 Jul, [facility] [place] [facility] [address] [id number] [place] [address]- 3114 Jul, [facility] [place] [facility] [address] [id number] [place] [address]- 5849 Jul, [facility] [place] [facility] [address] [id number] [place] [address]- 6906 Jul, [facility] [place] [facility] [address] [id number] [place] [address]- 4400 Jul, [facility] [place] [facility] [address] [id number] [place] [address]- 2994 20 Jul, 2013 [facility] [place] [facility] [address] [id number] [place] [address]- 5198 17 Jul, 2013 [facility] [place] [facility] [address] [id number] [place] [address]- 5787 16 Jul, 2013 [facility] [place] [facility] [address] [id number] [place] [address]- 3379 16 Jul, 2013 [facility] [place] [facility] [address] [id number] [place] [address]- 8272 Jul, [facility] [place] [facility] [address] [id number] [place] [address]- 7129 Jul, [facility] [place] [facility] [address] [id number] [place] [address]- 5084 Jul, [facility] [place] [facility] [address] [id number] [place] [address]- 8752 Jul, [facility] [place] [facility] [address] [id number] [place] [address]- 0055 Jul, [facility] [place] [facility] [address] [id number] [place] [address]- 2917 Jul, [facility] [place] [facility] [address] [id number] [place] [address]- 8620 Jul, [facility] [place] [facility] [address] [id number] [place] [address]- 4806 Jul, [facility] [place] [facility] [address] [id number] [place] [address]- 3641 June, [facility] [place] [facility] [address] [id number] [place] [address]- 3987 June, [facility] [place] [facility] [address] [id number] [place] [address]- 7349 June, [facility] [place] [facility] [address] [id number] [place] [address]- 7388 June, [facility] [place] [facility] [address] [id number] [place] [address]- 5875 June, [facility] [place] [facility] [address] [id number] [place] [address]- 8117 June, [facility] [place] [facility] [address] [id number] [place] [address]- 9719 June, [facility] [place] [facility] [address] [id number] [place] [address]- 1961 June, [facility] [place] [facility] [address] [id number] [place] [address]- 5056 June, [facility] [place] [facility] [address] [id number] [place] [address]- 1432 June, [facility] [place] [facility] [address] [id number] [place] [address]- 1873 June, [facility] [place] [facility] [address] [id number] [place] [address]- 1519 June, [facility] [place] [facility] [address] [id number] [place] [address]- 7632 June, [facility] [place] [facility] [address] [id number] [place] [address]- 7100 June, [facility] [place] [facility] [address] [id number] [place] [address]- 1654 June, [facility] [place] [facility] [address] [id number] [place] [address]- 8133 June, [facility] [place] [facility] [address] [id number] [place] [address]- 0294 June, [facility] [place] [facility] [address] [id number] [place] [address]- 4080 June, [facility] [place] [facility] [address] [id number] [place] [address]- 0796 June, [facility] [place] [facility] [address] [id number] [place] [address]- 4421 June, [facility] [address] [id number] [place] [address]- 3106 June, [facility] [address] [id number] [place] [address]- 4312 June, [facility] [address] [id number] [place] [address]- 0274 June, [facility] [address] [id number] [place] [address]- 5590 June, [facility] [address] [id number] [place] [address] June, [facility] [address] [id number] [place] [address]- 9583 June, [facility] [address] [id number] [place] [address]- 2600 June, [facility] [address] [id number] [place] [address]- 6568 June, [facility] [address] [id number] [place] [address]- 7060 June, [facility] [address] [id number] [place] [address]- 1923 June, [facility] [address] [id number] [place] [address]- 3548 June, [facility] [address] [id number] [place] [address]- 4791 June, [facility] [place] [facility] [address] [id number] [place] [address]- 8848 May, [facility] [place] [facility] [address] [id number] [place] [address]- 1865 May, [facility] [address] [id number] [place] [address]- 1764 May, [facility] [place] [facility] [address] [id number] [place] [address]- 8592 May, [facility] [place] [facility] [address] [id number] [place] [address]- 2733 May, [facility] [place] [facility] [address] [id number] [place] [address]- 8472 May, [facility] [place] [facility] [address] [id number] [place] [address]- 9173 May, [facility] [place] [facility] [address] [id number] [place] [address]- 2294 May, [facility] [place] [facility] [address] [id number] [place] [address]- 8339 May, [facility] [place] [facility] [address] [id number] [place] [address]- 8004 May, [facility] [place] [facility] [address] [id number] [place] [address]- 4133 May, [facility] [place] [facility] [address] [id number] [place] [address]- 0731 May, [facility] [place] [facility] [address] [id number] [place] [address]- 2571 May, [facility] [place] [facility] [address] [id number] [place] [address]- 3315 May, [facility] [place] [facility] [address] [id number] [place] [address]- 3463 May, [facility] [place] [facility] [address] [id number] [place] [address]- 6273 Apr, [facility] [place] [facility] [address] [id number] [place] [address]- 4737 Apr, [facility] [place] [facility] [address] [id number] [place] [address]- 3802 Apr, [facility] [place] [facility] [address] [id number] [place] [address]- 9072 Apr, [facility] [place] [facility] [address] [id number] [place] [address]- 1896 Apr, [facility] [place] [facility] [address] [id number] [place] [address]- 4006 Apr, [facility] [place] [facility] [address] [id number] [place] [address]- 6946 Mar, [facility] [place] [facility] [address] [id number] [place] [address]- 5543 Mar, [facility] [place] [facility] [address] [id number] [place] [address]- 5249 Mar, [facility] [place] [facility] [address] [id number] [place] [address]- 1626 Mar, [facility] [place] [facility] [address] [id number] [place] [address]- 8383 Mar, [facility] [place] [facility] [address] [id number] [place] [address]- 3295 Mar, [facility] [place] [facility] [address] [id number] [place] [address]- 3632 Mar, [facility] [place] [facility] [address] [facility] [id number] [place] [address]- 4973 Mar, [facility] [place] [facility] [address] [id number] [place] [address]- 8697 Feb, [facility] [place] [facility] [address] [id number] [place] [address]- 9384 Feb, [facility] [place] [facility] [address] [id number] [place] [address]- 6611 Feb, [facility] [place] [facility] [address] [id number] [place] [address]- 8268 Feb, [facility] [place] [facility] [address] [id number] [place] [address]- 5269 Feb, [facility] [address] [id number] [place] [address]- 1949 Feb, [facility] [place] [facility] [address] [id number] [place] [address]- 9897 Feb, [facility] [place] [facility] [address] [id number] [place] [address]- 8741 Feb, [facility] [place] [facility] [address] [id number] [place] [address]- 8162 Feb, [facility] [place] [facility] [address] [id number] [place] [address]- 2958 Feb, [facility] [place] [facility] [address] [id number] [place] [address]- 2160 Jan, [facility] [place] [facility] [address] [id number] [place] [address]- 4692 Jan, [facility] [place] [facility] [address] [id number] [place] [address]- 2897 Jan, [facility] [place] [facility] [address] [id number] [place] [address]- 4775 Jan, [facility] [place] [facility] [address] [id number] [place] [address]- 0761 Jan, [facility] [place] [facility] [address] [id number] [place] [address]- 1808 Jan, [facility] [place] [facility] [address] [id number], [place] [address]- 1494 Jan, [facility] [place] [facility] [address] [id number] [place] [address]- 2550 Jan, [facility] [place] [facility] [address] [id number] [place] [address]- 4926 Dec, [facility] [place] [facility] [address] [id number], [place] [address]- 0482 Dec, [facility] [place] [facility] [address] [id number], [place] [address]- 5006 Dec, [facility] [place] [facility] [address] [id number] [place] [address]- 9028 Dec, [facility] [place] [facility] [address] [id number] [place] [address]- 4523 Dec, [facility] [place] [facility] [address] [id number] [place] [address]- 5518 Dec, [facility] [place] [facility] [address] [id number] [place] [address]- 3582 Dec, [facility] [place] [facility] [address] [id number] [place] [address]- 2163 Dec, [facility] [place] [facility] [address] [id number] [place] [address]- 4689 Nov, [facility] [place] [facility] [address] [facility] [id number] [place] [address]- 0815 Nov, [facility] [place] [facility] [address] [id number] [place] [address]- 4559 Nov, [facility] [place] [facility] [address] [facility] [id number] [place] [address]- 1483 Nov, [facility] [place] [facility] [address] [facility] [id number] [place] [address]- 9975 Nov, [facility] [place] [facility] [address] [facility] [id number], [place] [address]- 6963 Nov, [facility] [place] [facility] [address] [id number], [place] [address]- 7220 07 Nov, 2012 [facility] [place] [facility] [address] [id number], [place] [address]- 0056 10 Oct, 2012 [facility] [place] [facility] [address] [id number] [place] [address]- 0974 10 Oct, 2012 [facility] [place] [facility] [address] [facility] [id number], [place] [address]- 4858 05 Oct, 2012 [facility] [place] [facility] [address] [id number] [place] [address]- 2867 Sep, [facility] [place] [facility] [address] [id number] [place] [address]- 5577 Sep, [facility] [place] [facility] [address] [id number] [place] [address]- 7626 Sep, [facility] [place] [facility] [address] [id number] [place] [address]- 4036 Sep, [facility] [place] [facility] [address] [id number] [place] [address]- 9926 Aug, [facility] [place] [facility] [address] [id number] [place] [address]- 9909 Aug, [facility] [place] [facility] [address] [id number] [place] [address]- 5060 Aug, [facility] [place] [facility] [address] [id number] [place] [address]- 0511 Aug, [facility] [place] [facility] [address] [id number] [place] [address]- 3839 Aug, [facility] [place] [facility] [address] [id number] [place] [address]- 5423 Jul, [facility] [place] [facility] [address] [id number] [place] [address]- 9359 Jul, [facility] [place] [facility] [address] [id number] [place] [address]- 9610 Jul, [facility] [place] [facility] [address] [id number] [place] [address]- 8832 Jul, [facility] [place] [facility] [address] [id number] [place] [address]- 0825 Jul, [facility] [place] [facility] [address] [id number] [place] [address]- 1083 June, [facility] [place] [facility] [address] [id number] [place] [address]- 2800 June, [facility] [address] [id number] [place] [address]- 4210 June, [facility] [address] [id number] [place] [address]- 6673 June, [facility] [address] [id number] [place] June, [facility] [place] [facility] [address] [id number] [place] [address]- 1369 May, [facility] [address] [id number] [place] [address]- 6702 May, [facility] [address] [id number] [place] [address]- 4946 May, [facility] [address] [id number] [place] [address]- 5395 May, [facility] [place] [facility] [address] [id number] [place] [address]- 5770 May, [facility] [place] [facility] [address] [id number] [place] [address]- 0238 May, [facility] [place] [facility] [address] [id number] [place] [address]- 3613 May, [facility] [place] [facility] [address] [id number] [place] [address]- 0272 Apr, [facility] [place] [facility] [address] [id number], [place] [address]- 3206 Apr, [facility] [place] [facility] [address] [id number] [place] [address]- 3346 Apr, [facility] [place] [facility] [address] [id number] [place] [address]- 6038 Mar, [facility] [place] [facility] [address] [id number] [place] [address]- 0202 Mar, [facility] [place] [facility] [address] [id number] [place] [address]- 2096 20 Mar, 2012 [facility] [address] [id number] [place] [address] 2546 19 Mar, 2012 [facility] [place] [facility] [address] [id number] [place] [address] 2546 13 Mar, 2012 [facility] [address] [id number] [place] [address] 2546 13 Mar, 2012 [facility] [place] [facility] [address] [id number] [place] [address] 2546 07 Mar, 2012 [facility] [address] [id number] [place] [address]- 1026 07 Mar, 2012 [facility] [address] [facility] [id number] [place] [address]- 3090 31 Feb, 2012 [facility] [address] [id number] [place] [address]- 7902 29 Feb, 2012 [facility] [address] [id number] [place] [address] 254 Feb, [facility] [address] [facility] [id number] [place] [address]- 0733 Feb, [facility] [address] [facility] [id number] [place] [address]- 5647 18 Feb, 2012 [facility] [address] [id number] [place] [address] 2544 15 Feb, 2012 [facility] [address] [id number] [place] [address] 2548 14 Feb, 2012 [facility] [place] [facility] [address] [id number] [place] [address] 2546 Jan, [facility] [place] [facility] [address] [id number] [place] [address] 2546 Jan, [facility] [place] [facility] [address] [id number] [place] [address]- 1641 Jan, [facility] [place] [facility] [address] [id number] [place] [address]- 2543 Jan, [facility] [place] [facility] [address] [id number] [place] [address]- 8724 Jan, [facility] [place] [facility] [address] [id number] [place] [address]- 5366 Jan, [facility] [place] [facility] [address] [id number] [place] [address]- 6913 Jan, [facility] [place] [facility] [address] [id number] [place] [address]- 1740 Jan, [facility] [place] [facility] [address] [id number] [place] [address]- 8909 Jan, [facility] [place] [facility] [address] [id number] [place] [address]- 1785 Jan, [facility] [place] [facility] [address] [id number] [place] [address]- 7634 Jan, [facility] [place] [facility] [address] [id number] [place] [address]- 7262 Jan, [facility] [place] [facility] [address] [id number] [place] [address]- 9475 Jan, [facility] [place] [facility] [address] [id number] [place] [address]- 7386 Jan, [facility] [place] [facility] [address] [id number], [place] [address] Dec, [facility] [place] [facility] [address] [id number] [place] [address] Dec, [facility] [place] [facility] [address] [id number] [place] [address] Dec, [facility] [place] [facility] [address] [id number] [place] [address] Dec, [facility] [place] [facility] [address] [id number] [place] [address] 27 Dec, 2011 [facility] [place] [facility] [address] [id number] [place] [address] Dec, [facility] [place] [facility] [address] [id number] [place] [address] Dec, [facility] [place] [facility] [address] [id number] [place] [address] 47[address] Dec, [facility] [place] [facility] [address] [id number] [place] [address] Dec, [facility] [place] [facility] [address] [id number] [place] [address] Dec, [facility] [place] [facility] [address] [id number] [place] [address] Dec, [facility] [place] [facility] [address] [id number] [place] [address] Dec, [facility] [place] [facility] [address] [id number] [place] [address]14 Dec, [facility] [place] [facility] [address] [id number] [place] [address]- [address] Dec, [facility] [place] [facility] [address] [id number] [place] [address]- 1661 Dec, [facility] [place] [facility] [address] [id number] [place] [address] Dec, [facility] [place] [facility] [address] [id number] [place] [address] Dec, [facility] [place] [facility] [address] [id number] [place] [address]- [address]44 Dec, [facility] [place] [facility] [address] [id number] [place] [address]- 389[address] Dec, [facility] [place] [facility] [address] [id number], [place] [address] Dec, [facility] [place] [facility] [address] [id number] [place] [address] 31 Nov, 2011 [facility] [place] [facility] [address] [id number] [place] [address]- [address] Nov, [facility] [place] [facility] [address] [id number] [place] [address]- 6461 Nov, [facility] [place] [facility] [address] [id number] [place] [address]- [address]373 Nov, [facility] [place] [facility] [address] [id number] [place] [address] Nov, [facility] [place] [facility] [address] [id number] [place] [address]- [address] Nov, [facility] [place] [facility] [address] [id number] [place] [address]- 1343 Nov, [facility] [place] [facility] [address] [id number] [place] [address]4 Nov, [facility] [place] [facility] [address] [id number] [place] [address] Nov, [facility] [place] [facility] [address] [id number] [place] [address] 1190 Nov, [facility] [place] [facility] [address] [id number] [place] [address]- 4582 Nov, [facility] [place] [facility] [address] [id number] [place] [address] 9539 Nov, [facility] [place] [facility] [address] [id number] [place] [address]- 5973 Nov, [facility] [place] [facility] [address] [id number] [place] [address]37 30 Oct, 2011 [facility] [place] [facility] [address] [id number] [place] [address] 27 Oct, 2011 [facility] [place] [facility] [address] [id number] [place] [address]- [address]453 24 Oct, 2011 [facility] [place] [facility] [address] [id number] [place] [address]01 20 Oct, 2011 [facility] [place] [facility] [address] [id number] [place] [address]36 Oct, [facility] [place] [facility] [address] [id number] [place] [address]- [address]406 Oct, [facility] [place] [facility] [address] [id number] [place] [address]- 6658 Sep, [facility] [place] [facility] [address] [id number] [place] [address]- 1318 Sep, [facility] [place] [facility] [address] [id number] [place] [address]- 8260 Sep, [facility] [place] [facility] [address] [id number] [place] [address]- 9413 Sep, [facility] [place] [facility] [address] [id number] [place] [address]- 6[address] Aug, [facility] [place] [facility] [address] [id number] [place] [address]- 378[address] Aug, [facility] [place] [facility] [address] [id number] [place] [address]- 8515 Aug, [facility] [place] [facility] [address] [id number] [place] [address]- 8691 Jul, [facility] [place] [facility] [address] [id number] [place] [address]- 9842 Jul, [facility] [place] [facility] [address] [id number] [place] [address]- 3448 Jul, [facility] [place] [facility] [address] [id number] [place] [address]- 6571 Jul, [facility] [place] [facility] [address] [id number] [place] [address]- 0943 June, [facility] [place] [facility] [address] [id number] [place] [address] June, [facility] [address] [id number] [place] [address]- 4414 June, [facility] [address] [id number] [place] [address] June, [facility] [address] [id number] [place] [address]- 5083 June, [facility] [address] [id number] [place] [address]- 8397 June, [facility] [address] [id number] [place] [address]- 9578 May, [facility] [address] [id number] [place] [address]- [address]776 May, [facility] [address] [id number] [place] [address]- 0752 May, [facility] [address] [id number] [place] [address]- 5487 May, [facility] [address] [id number] [place] [address]- 1097 May, [facility] [address] [id number] [place] [address]- 5227 May, [facility] [address] [id number] [place] [address] 1984 May, [facility] [address] [id number] [place] [address]- 1550 May, [facility] [address] [id number] [place] [address]- [address]30 May, [facility] [address] [id number] [place] [address]- 2840 Apr, [facility] [address] [id number] [place] [address]- 6300 Mar, [facility] [place] [facility] [address] [id number] [place] [address]- 2830 Mar, [facility] [place] [facility] [address] [id number] [place] [address]- 6793 Mar, [facility] [place] [facility] [address] [id number] [place] [address]- 5354 Mar, [facility] [place] [facility] [address] [id number] [place] [address]- 6849 Feb, [facility] [place] [facility] [address] [id number] [place] [address]- 8605 Feb, [facility] [place] [facility] [address] [id number] [place] [address]- 6944 Feb, [facility] [place] [facility] [address] [facility] [id number] [place] [address]- 4042 Jan, [facility] [place] [facility] [address] [id number], [place] [address]- 4014 Jan, [facility] [place] [facility] [address] [id number] [place] [address]- 4674 Jan, [facility] [place] [facility] [address] N [facility] [id number], [place] [address] 29 Dec, 2010 [facility] [place] [facility] [address] [id number], [place] [address] Dec, [facility] [place] [facility] [address] [id number], [place] [address] 16 Dec, 2010 [facility] [place] [facility] [address] [id number] [place] [address] 15 Dec, 2010 [facility] [place] [facility] [address] [id number] [address] 31 Nov, 2010 [facility] [place] [facility] [address] [facility] [id number] [place] [address] 31 Nov, 2010 [facility] [place] [facility] [address] [id number] [place] [address] 19 Nov, 2010 [facility] [address] [id number] [place] [address] 18 Nov, 2010 [facility] [place] [facility] [address] [id number] [place] [address] 13 Oct, 2010 [facility] [place] [facility] [address] [id number] [place] [address] Jul, [facility] [place] [facility] [address] [id number] [place] [address] Jan, [facility] [place] [facility] [address] [id number] [place] [address] Dec, [facility] [place] [facility] [address] [id number] [place] [address] Dec, [facility] [place] [facility] [address] [id number] [place] [address] Dec, [facility] [place] [facility] [address] [id number] [place] [address] Dec, [facility] [place] [facility] [address] [id number] [place] [address] Dec, [facility] [place] [facility] [address] [facility] [id number] [place] [address] Dec, [facility] [place] [facility] [address] [id number] [place] [address] Nov, [facility] [place] [facility] [address] [id number] [place] [address] Nov, [facility] [place] [facility] [address] [id number] [place] [address]- 16[address] Nov, [facility] [place] [facility] [address] [id number] [place] [address] Apr, [facility] [place] [facility] [address] [id number] [place] [address] Apr, [facility] [place] [facility] [address] [id number] [place] [address] 29 Jan, 2009 [facility] [place] [facility] [address] [id number] [place] [address]- [address] 28 Jan, 2009 [facility] [place] [facility] [address] [id number] [place] [address]- [address] 23 Jan, 2009 [facility] [place] [facility] [address] [id number] [place] [address]- [address] 17 Jan, 2009 [facility] [place] [facility] [address] [id number] [place] [address] 14 Jan, 2009 [facility] [place] [facility] [address] [id number] [place] [address] Jan, [facility] [place] [facility] [address] [id number] [place] [address] 30 Dec, 2008 [facility] [place] [facility] [address] [id number] [place] [address] Dec, [facility] [place] [facility] [address] [id number] [place] [address] 18 Dec, 2008 [facility] [place] [facility] [address] [id number] [place] [address] Dec, [facility] [place] [facility] [address] [id number] [place] [address] 16[address] Dec, [facility] [place] [facility] [address] [id number], [place] [address] Dec, [facility] [place] [facility] [address] [id number] [place] [address] 28 Nov, 2008 [facility] [place] [facility] [address] [id number] [place] [address]- [address]46 27 Nov, 2008 [facility] [place] [facility] [address] [id number], [place] [address] 15 Aug, 2008 [facility] [place] [facility] [address] [id number], [place] [address] Jul, [facility] [address] [facility] [id number] [place] [address] June, [facility] [address] [facility] [id number] [place] [address] Apr, IMMUNIZATIONS No Known Immunizations SOCIAL HISTORY Never Assessed REASON FOR VISIT BH intake WB-MA PLAN OF CARE Activity Details Follow Up 4 Weeks, prn Reason: VITAL SIGNS Height 63 in 2017-06-26 Weight 123 lbs 2017-06-26 Heart Rate 106 bpm 2017-06-26 Respiratory Rate 22 2017-06-26 BMI 21.79 kg/m2 2017-06-26 Blood pressure systolic 126 mmHg 2017-06-26 Blood pressure diastolic 78 mmHg 2017-06-26 MEDICATIONS Medication Instructions Dosage Frequency Start Date End Date Duration Status Restasis 0.05 % Ophthalmic Twice a day 1 drop into affected eye 12h Active Duloxetine HCl 60 mg Orally 2 times a day 1 capsule 12h Active Clonazepam 0.5 MG Orally 2 times a day 1 tablet 12h Active Artificial Tear Solution Ophthalmic 2 times a day 2 drops as needed 12h Active BusPIRone HCl 5 mg Orally 2 times a day 1 tablet 12h Active Famotidine 20 mg Orally Twice a day 1 tablet 12h 90 days Not-Taking Meloxicam 7.5 MG orally 2 times a day 1 tablet 12h 90 days Active Acetaminophen 500 MG Orally three times per day 2 tablets Not- Taking Furosemide 20 mg Orally Once a day 1 tablet 24h 30 Not-Taking RESULTS No Results PROCEDURES Procedure Date Ordered Result Body Site [facility] VISIT ESTABLISHED PATIENT June 26, 2017 INSTRUCTIONS MEDICATIONS ADMINISTERED No Known Medications [...] hip repair of loosened hardware/hip replacement ( [facility] in [place]) 09/2008 Hospitalization History in pt rehab s/p left hip repair 09/2008-11/[address] [facility] 07/2009
--- OUTSIDE RECORDS SUMMARY | 2017-10-26 13:39 | XMS REPORT ---
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 Active 122415623 Problem Meningioma D32.9 Active 808734793 Problem Generalized osteoarthritis M15.9 Active 063887182 Problem Dementia without behavioral disturbance, unspecified dementia type F03.90 Active 99317448 Problem Debility R53.81 Active 67817447 Problem At risk for falls Z91.81 Active 065945087 Problem Other chronic pain G89.29 Active 48319244 Problem Panic attacks F41.0 Active 731729952 Problem Acute drug withdrawal syndrome without complication F19.230 Active 915601044 Problem Anxiety F41.9 Active 29300867 ALLERGIES No Information ENCOUNTERS Encounter Location Date Diagnosis [facility] [id number] [address] Nov, [facility] [address] [address] Aug, [facility] [id number] [address] Aug, Dementia without behavioral disturbance, unspecified dementia type F03.90 [facility] [id number] [address] Aug, Dementia without behavioral disturbance, unspecified dementia type F03.90 and Anxiety F41.9 [place] [address] [address] Jul, Dementia without behavioral disturbance, unspecified dementia type F03.90 [facility] [id number] [place] [address] 44673- 5846 Jul, 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 ; Generalized osteoarthritis M15.9 ; Other chronic pain G89.29 ; At risk for falls Z91.81 and Debility R53.81 [facility] [id number] [place] [address] 94778- 8641 Jul, [facility] [id number] [place] [address] 22416- 9295 June, Dementia without behavioral disturbance, unspecified dementia type F03.90 [facility] [id number] [place] [address] 12860- 1175 June, [facility] [id number] [place] [address] 44625- 7992 June, [facility] [id number] [place] [address] 26061- 1767 June, [facility] [id number] [place] [address] 30312- 6751 June, Dementia without behavioral disturbance, unspecified dementia type F03.90 and Anxiety F41.9 [facility] [address] [place] [address] 79124- 0064 May, [facility] [id number] [place] [address] 02408- 7591 May, [facility] [id number] [place] [address] 22084 -2423 May, Anxiety F41.9 ; Acute drug withdrawal syndrome without complication F19.230 and Abdominal pain, unspecified abdominal location R10.9 [facility] [address] [address] 8536 May, Panic attacks F41.0 [facility] [id number] [place] [address] 74911- 0588 May, Other chronic pain G89.29 and Generalized anxiety disorder F41.1 [place] [id number] [place] [address] 24551- 3525 Apr, Housing problems Z59.9 and Panic attacks F41.0 [facility] [id number] [place] [address] 36161- 6228 Mar, Panic attacks F41.0 [place] [id number] [place] [address] 49658- 7275 Feb, [place] [address] [address]34- 0814 Feb, Panic attacks F41.0 [place] [id number] [place] [address] 78795- 1402 Feb, Pain in right knee M25.561 ; Pain in left knee M25.562 ; Other chronic pain G89.29 ; Housing problems Z59.9 ; Dementia without behavioral disturbance, unspecified dementia type F03.90 ; Generalized anxiety disorder F41.1 and Advance directive declined by patient Z78.9 [place] [id number] [place] [address] 77523- 1633 Jan, Panic attacks F41.0 [facility] [id number] [place] [address] 20954- 5664 Jan, Panic attacks F41.0 [facility] [id number] [place] [address] 29100- 6073 Dec, Panic attacks F41.0 [facility] [address] 32610 -6686 Nov, Allergic contact dermatitis due to cosmetics L23.2 [facility] [id number] [place] [address] 26190- 1770 Nov, Panic attacks F41.0 [facility] [address] [place] [address] 49[address] 08 Oct, 2016 Panic attacks F41.0 [facility] [id number] [place] [address] 43335- 4885 Sep, Panic attacks F41.0 ; Insect bite, initial encounter W57.XXXA and 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 [facility] [id number] [place] [address] 60701- 6773 Sep, [facility] [address] 15322- 4323 Aug, Generalized anxiety disorder F41.1 [place] [address] 95789- 0116 Jul, [facility] [id number] [place] [address] 39075 -8774 June, Seasonal allergic rhinitis due to other allergic trigger J30.89 [place] [id number] [place] [address] 35970- 7259 June, [facility] [id number] [place] [address] 97961- 6792 June, [facility] [id number] [place] [address] 94331 -8098 June, Dysuria R30.0 and RLQ abdominal pain R10.31 [place] [id number] [place] [address] 85737- 0001 May, Generalized anxiety disorder F41.1 ; Generalized osteoarthritis M15.9 and Dementia without behavioral disturbance, unspecified dementia type F03.90 [place] [id number] [place] [address] 26671- 5772 May, [facility] [id number] [place] [address] 78824- 3061 May, [place] [id number] [place] [address] 77989- 1390 May, [facility] [address] [address] 4830 Apr, [facility] [id number] [place] [address], [place] [address]- 3192 Apr, Generalized anxiety disorder F41.1 [facility] [address] [place] [address]- 5387 Apr, [facility] [id number] [place] [address] 37195- 5091 Apr, [facility] [id number] [place] [address], [place] [address]- 8796 Apr, [facility] [id number] [place] [address] 58843- 0794 Apr, Generalized anxiety disorder F41.1 [facility] [id number] [place] [address] 94951- 6300 Mar, [facility] [address], [place] [address]- 3354 Mar, [facility] [address], [place] [address]- 7929 Mar, [facility] [address], [place] [address]- 7954 Mar, [facility] [address], [place] [address]- 4268 Mar, Generalized anxiety disorder F41.1 [facility] [address], [place] [address]- 9849 Feb, Anxiety disorder, unspecified F41.9 [facility] [address], [place] [address]- 6127 Feb, [facility] [address], [place] [address]- 8081 Feb, [facility] [address], [place] [address]- 0437 Feb, [facility] [id number] [place] [address] 75438 -2185 Feb, Urinary frequency R35.0 and Acute cystitis without hematuria N30.00 [facility] [id number] [place] [address] 73338- 0499 Feb, [facility] [id number] [place] [address] 72193- 8972 Jan, [facility] [id number] [place] [address] 71254- 1758 Jan, [facility] [id number] [place] [address] 38054- 3849 Dec, [facility] [id number] [place] [address] 13637- 4998 Dec, [facility] [id number] [place] [address] 83051- 5771 Dec, Edema, unspecified type R60.9 [facility] [id number] [place] [address] 55227- 3406 Dec, [facility] [id number] [place] [address] 43230- 1375 Dec, [facility] [id number] [place] [address] 70442- 8436 30 Oct, 2015 Generalized anxiety disorder F41.1 [facility] [address] [place] [address] 27219- 8087 20 Oct, 2015 [facility] [id number] [place] [address] 55808- 6823 16 Oct, 2015 [facility] [id number] [place] [address] 17507- 1331 15 Oct, 2015 [facility] [id number] [place] [address] 48454- 7964 06 Oct, 2015 [facility] [address], [place] [address]- 3686 Aug, Anxiety disorder, unspecified F41.9 [facility] [address], [place] [address]- 0051 Jul, Anxiety disorder, unspecified F41.9 [facility] [address] [place] [address]- 0813 Jul, Generalized anxiety disorder F41.1 [facility] [address], [place] [address]- 4904 Jul, [facility] [id number] [place] [address] 83519- 5062 June, [facility] [id number] [place] [address] 31050- 1913 June, [facility] [id number] [place] [address] 51949- 1080 June, [facility] [address] [address]- 5779 June, [facility] [id number] [place] [address] 01526- 6548 May, [facility] [address], [place] [address] -2838 May, Dementia without behavioral disturbance, unspecified dementia type F03.90 and Generalized osteoarthritis M15.9 [facility] [address], [place] [address]- 0533 May, Generalized osteoarthritis M15.9 and 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 [facility] [address], [place] [address]- 3425 Apr, [facility] [address], [place] [address]- 6821 Apr, [facility] [address] [address]- 7681 Apr, [place] [id number] [place] [address] 61934- 8736 Mar, [facility] [address] 13641- 3267 Mar, [place] [address] 90692- 9593 Mar, Generalized anxiety disorder F41.1 [place] [address] 78393- 1143 Feb, Other infective acute otitis externa of right ear H60.[address] 05179- 3629 Dec, Dysuria R30.0 ; Generalized osteoarthritis M15.9 and Gastroesophageal reflux disease, esophagitis presence not specified K21.[address] 63642- 9573 Dec, [place] [address] 97773- 2227 Dec, Generalized anxiety disorder F41.1 ; Encounter for immunization Z23 and Dementia F03.90 [place] [id number] [place] [address] 64773- 6546 Nov, [place] [id number] [place] [address] 54959- 8069 Oct, [place] [address] 09104- 0602 24 Oct, 2014 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 ; Chronic pain 338.29 ; Anxiety 300.00 and Dementia 294.[address] 19453- 0258 Oct, [place] [id number] [place] [address] 85978- 4662 Aug, Generalized anxiety disorder 300.02 and Dementia 294.20 [place] [address], [place] [address]- 8976 Aug, [facility] [address] [address]- 2797 Aug, Anxiety 300.00 and Chronic pain 338.29 [facility] [address], [place] [address]- 1310 Jul, [facility] [id number] [place] [address] 66682- 6206 Jul, [facility] [address], [place] [address]- 1911 June, [facility] [id number] [place] [address] 07574- 6426 June, Anxiety, generalized 300.02 ; Dementia 294.20 and No condition on [place] V71.09 [facility] [address], [place] [address]- 7204 May, [facility] [address], [place] [address]- 3176 May, [facility] [address], [place] [address]- 0366 Apr, [facility] [address], [place] [address]- 1709 Apr, [facility] [address], [place] [address]- 1846 Apr, [facility] [address], [place] [address]- 2975 Apr, [facility] [address] [address]- 9602 Apr, [facility] [id number] [address]- 2546 Apr, [facility] [address] [address] Apr, [facility] [place] [facility] [address] [id number] [place] [address]- 0789 Apr, [facility] [place] [facility] [address] [id number] [place] [address]- 8029 Apr, [facility] [place] [facility] [address] [id number] [place] [address]- 0604 Apr, [facility] [place] [facility] [address] [id number] [place] [address]- 5393 Apr, [facility] [place] [facility] [address] [id number] [place] [address]- 7885 Apr, [facility] [place] [facility] [address] [id number] [place] [address]- 9172 Apr, [facility] [place] [facility] [address] [id number] [place] [address]- 9424 Apr, [facility] [place] [facility] [address] [id number] [place] [address]- 3318 Apr, [facility] [place] [facility] [address] [id number] [place] [address]- 4494 Apr, [facility] [place] [facility] [address] [id number] [place] [address]- 8002 Mar, 2014 [facility] [place] [facility] [address] [id number] [address]- 2863 Mar, 2014 [facility] [place] [facility] [address] [id number] [address]- 6816 Mar, 2014 [facility] [place] [facility] [address] [id number] [place] [address]- 2195 Mar, 2014 [facility] [place] [facility] [address] [id number] [place] [address]- 5809 Mar, 2014 [facility] [place] [facility] [address] [id number] [place] [address]- 5723 Mar, 2014 [facility] [place] [facility] [address] [id number] [place] [address]- 3982 23 Mar, 2014 [facility] [place] [facility] [address] [id number] [place] [address]- 4806 23 Mar, 2014 [facility] [place] [facility] [address] [id number] [place] [address]- 2546 20 Mar, 2014 [facility] [place] [facility] [address] [id number] [place] [address]- 1683 20 Mar, 2014 [facility] [place] [facility] [address] [id number] [place] [address]- 2549 18 Mar, 2014 [facility] [place] [facility] [address] [id number] [place] [address]- 7739 18 Mar, 2014 [facility] [place] [facility] [address] [facility] [id number] [place] [address]- 2623 17 Mar, 2014 [facility] [place] [facility] [address] [facility] [id number] [place] [address]- 5096 17 Mar, 2014 [facility] [place] [facility] [address] [facility] [id number] [place] [address]- 8321 17 Mar, 2014 [facility] [place] [facility] [address] [facility] [id number] [place] [address]- 7886 17 Mar, 2014 [facility] [place] [facility] [address] [facility] [id number] [place] [address]- 5601 13 Mar, 2014 [facility] [place] [facility] [address] [facility] [id number] [address]- 4496 13 Mar, 2014 [facility] [place] [facility] [address] [facility] [id number] [place] [address]- 2544 13 Mar, 2014 [facility] [place] [facility] [address] [facility] [id number] [place] [address]- 8079 13 Mar, 2014 [facility] [place] [facility] [address] [facility] [id number] [place] [address]- 6928 12 Mar, 2014 [facility] [place] [facility] [address] [facility] [id number] [place] [address]- 3129 12 Mar, 2014 [facility] [place] [facility] [address] [id number] [place] [address]- 1436 Mar, 2014 [facility] [place] [facility] [address] [id number] [place] [address]- 2546 Mar, 2014 [facility] [place] [facility] [address] [id number] [place] [address]- 1546 Mar, [facility] [place] [facility] [address] [id number] [place] [address]- 2541 Mar, [facility] [place] [facility] [address] [id number] [place] [address] Feb, [facility] [place] [facility] [address] [id number] [place] [address] Feb, [facility] [place] [facility] [address] [id number] [place] [address] Feb, [facility] [place] [facility] [address] [id number] [place] [address] Feb, [facility] [place] [facility] [address] [id number] [place] [address] Feb, [facility] [place] [facility] [address] [facility] [id number] [place] [address] Feb, [facility] [place] [facility] [address] [id number] [place] [address] Feb, [facility] [place] [facility] [address] [id number] [place] [address] Feb, [facility] [place] [facility] [address] [id number] [place] [address] Feb, [facility] [place] [facility] [address] [id number] [place] [address] Feb, [facility] [place] [facility] [address] [id number] [place] [address] Feb, [facility] [place] [facility] [address] [id number] [place] [address] Feb, [facility] [place] [facility] [address] [id number] [place] [address] Feb, [facility] [place] [facility] [address] [id number] [place] [address] Feb, [facility] [place] [facility] [address] [id number] [place] [address] Feb, [facility] [place] [facility] [address] [id number] [place] [address] Jan, [facility] [place] [facility] [address] [id number] [place] [address] Jan, [facility] [place] [facility] [address] [id number] [place] [address] Jan, [facility] [place] [facility] [address] [id number] [place] [address] Jan, [facility] [place] [facility] [address] [id number] [place] [address] Jan, [facility] [place] [facility] [address] [id number] [place] [address] Jan, [facility] [place] [facility] [address] [id number] [place] [address] Jan, [facility] [place] [facility] [address] [id number] [place] [address] Jan, [facility] [place] [facility] [address] [id number] [place] [address] Jan, [facility] [place] [facility] [address] [address] [id number] [place] [address] Jan, [facility] [place] [facility] [address] [id number] [place] [address] 8184 Jan, [facility] [place] [facility] [address] [id number] [address] Jan, [facility] [place] [facility] [address] [id number] [place] [address] 2043 Jan, [facility] [place] [facility] [address] [facility] [id number] [place] [address] 4664 Jan, [facility] [place] [facility] [address] [id number] [place] [address] Jan, [facility] [place] [facility] [address] [id number] [place] [address] Jan, [facility] [place] [facility] [address] [id number] [place] [id number] Jan, [facility] [place] [facility] [address] [id number] [place] [address] Jan, [facility] [place] [facility] [address] [place] [id number] [address] Jan, [facility] [place] [facility] [address] [id number] [place] [address] 0613 Jan, [facility] [place] [facility] [address] [id number] [place] [address] 9709 Dec, [facility] [place] [facility] [address] [id number] [place] [address] 8405 Dec, [facility] [place] [facility] [address] [id number] [place] [address] 2072 Dec, [facility] [place] [facility] [address] [id number], [place] [address]65 Dec, [facility] [place] [facility] [address] [id number] [place] [address] 0886 Dec, [facility] [place] [facility] [address] [id number] [place] [address]- 9542 Dec, [facility] [place] [facility] [address] [facility] [id number] [place] [address] Dec, [facility] [place] [facility] [address] [id number] [place] [address] 3526 Nov, [facility] [place] [facility] [address] [id number] [place] [address] 8606 Nov, [facility] [place] [facility] [address] [id number] [place] [address] 8610 Nov, [facility] [place] [facility] [address] [id number] [place] [address]- 2284 Nov, [facility] [place] [facility] [address] [id number] [place] [address] 9522 Nov, [facility] [place] [facility] [address] [id number] [place] [address] 6153 Nov, [facility] [place] [facility] [address] [id number] [place] [address] 0311 Nov, [facility] [place] [facility] [address] [id number] [place] [address]- 4361 Nov, [facility] [place] [facility] [address] [id number] [place] [address]- 2144 Nov, [facility] [place] [facility] [address] [id number] [place] [address] 4203 Nov, [facility] [place] [facility] [address] [id number] [place] [address] 1182 29 Oct, 2013 [facility] [place] [facility] [address] [id number] [place] [address] 2548 29 Oct, 2013 [facility] [place] [facility] [address] [id number] [place] [address] 2541 15 Oct, 2013 [facility] [place] [facility] [address] [id number] [place] [address]- 2546 15 Oct, 2013 [facility] [place] [facility] [address] [id number] [place] [address]- 2542 15 Oct, 2013 [facility] [place] [facility] [address] [id number] [place] [address] 8642 15 Oct, 2013 [facility] [place] [facility] [address] [id number] [place] [address] 6239 10 Oct, 2013 [facility] [place] [facility] [address] [id number] [place] [address]- 6916 10 Oct, 2013 [facility] [place] [facility] [address] [id number] [place] [address] 3664 Oct, [facility] [place] [facility] [address] [id number] [place] [address]- 4996 Oct, [facility] [place] [facility] [address] [id number] [place] [address] 6550 Sep, [facility] [place] [facility] [address] [id number] [place] [address] 7986 Sep, [facility] [place] [facility] [address] [id number] [place] [address]- 1455 Sep, [facility] [place] [facility] [address] [id number] [place] [address]- 9675 Sep, [facility] [place] [facility] [address] [id number] [place] [address]- 8858 Sep, [facility] [place] [facility] [address] [id number] [place] [address]- 4640 Sep, [facility] [place] [facility] [address] [id number] [place] [address] 3890 Sep, [facility] [place] [facility] [address] [id number] [place] [address]- 5904 Sep, [facility] [place] [facility] [address] [id number] [place] [address]- 9762 Sep, [facility] [place] [facility] [address] [id number] [place] [address]- 3471 Sep, [facility] [place] [facility] [address] [id number] [place] [address]- 2178 Aug, [facility] [place] [facility] [address] [id number] [place] [address]- 6656 Aug, [facility] [place] [facility] [address] [id number] [place] [address]- 1214 Aug, [facility] [place] [facility] [address] [id number] [place] [address] 7235 Aug, [facility] [place] [facility] [address] [id number] [place] [address]- 7843 Aug, [facility] [place] [facility] [address] [id number] [place] [address]- 0519 Aug, [facility] [place] [facility] [address] [id number] [place] [address]- 2267 Aug, [facility] [place] [facility] [address] [id number] [place] [address]- 6656 Aug, [facility] [place] [facility] [address] [id number] [place] [address]- 7722 Aug, [facility] [place] [facility] [address] [id number] [place] [address]- 7351 Aug, [facility] [place] [facility] [address] [id number] [place] [address]- 9064 Aug, [facility] [place] [facility] [address] [id number] [place] [address]- 5043 Aug, [facility] [place] [facility] [address] [id number] [place] [address]- 0100 Jul, [facility] [place] [facility] [address] [id number] [place] [address]- 0780 Jul, [facility] [place] [facility] [address] [id number] [place] [address]- 0913 Jul, [facility] [place] [facility] [address] [id number] [place] [address]- 9674 Jul, [facility] [place] [facility] [address] [id number] [place] [address]- 7634 Jul, [facility] [place] [facility] [address] [id number] [place] [address]- 3359 Jul, [facility] [place] [facility] [address] [id number] [place] [address]- 7700 17 Jul, 2013 [facility] [place] [facility] [address] [id number] [place] [address]- 5746 Jul, [facility] [place] [facility] [address] [id number] [place] [address]- 2818 Jul, [facility] [place] [facility] [address] [id number] [place] [address]- 4451 Jul, [facility] [place] [facility] [address] [id number] [place] [address]- 9057 Jul, [facility] [place] [facility] [address] [id number] [place] [address]- 5679 Jul, [facility] [place] [facility] [address] [id number] [place] [address]- 3505 Jul, [facility] [place] [facility] [address] [id number] [place] [address]- 9560 Jul, [facility] [place] [facility] [address] [id number] [place] [address]- 2046 Jul, [facility] [place] [facility] [address] [id number] [place] [address]- 3279 Jul, [facility] [place] [facility] [address] [id number] [place] [address]- 6880 Jul, [facility] [place] [facility] [address] [id number] [place] [address]- 6784 June, [facility] [place] [facility] [address] [id number] [place] [address]- 2511 June, [facility] [place] [facility] [address] [id number] [place] [address]- 2425 June, [facility] [place] [facility] [address] [id number] [place] [address]- 0884 June, [facility] [place] [facility] [address] [id number] [place] [address]- 0354 June, [facility] [place] [facility] [address] [id number] [place] [address]- 2047 June, [facility] [place] [facility] [address] [id number] [place] [address]- 2534 June, [facility] [place] [facility] [address] [id number] [place] [address]- 6849 June, [facility] [place] [facility] [address] [id number] [place] [address]- 4336 June, [facility] [place] [facility] [address] [id number] [place] [address]- 8991 June, [facility] [place] [facility] [address] [id number] [place] [address]- 3492 June, [facility] [place] [facility] [address] [id number] [place] [address]- 7646 June, [facility] [place] [facility] [address] [id number] [place] [address]- 5146 June, [facility] [place] [facility] [address] [id number] [place] [address]- 7076 June, [facility] [place] [facility] [address] [id number] [place] [address]- 9735 June, [facility] [place] [facility] [address] [id number] [place] [address]- 9129 June, [facility] [place] [facility] [address] [id number] [place] [address]- 3053 June, [facility] [place] [facility] [address] [id number] [place] [address]- 7627 June, [facility] [place] [facility] [address] [id number] [place] [address]- 6931 June, [facility] [place] [facility] [address] [id number] [place] [address]- 9822 June, [facility] [address] [id number] [place] [address]- 6026 June, [facility] [address] [id number] [place] [address]- 8649 June, [facility] [address] [id number] [place] [address]- 7256 June, [facility] [address] [id number] [place] [address]- 9404 June, [facility] [address] [id number] [place] [address]- 2660 June, [facility] [address] [id number] [place] [address]- 8214 June, [facility] [address] [id number] [place] [address]- 4126 June, [facility] [address] [id number] [place] [address]- 2698 June, [facility] [address] [id number] [place] [address]- 7754 June, [facility] [address] [id number] [place] [address]- 7528 June, [facility] [address] [id number] [place] [address]- 3819 June, [facility] [address] [id number] [place] [address]- 0335 June, [facility] [address] [id number] [place] [address]- 6956 May, [facility] [address] [id number] [place] [address]- 3701 May, [facility] [address] [id number] [place] [address]- 7141 May, [facility] [place] [facility] [address] [id number] [place] [address]- 7395 May, [facility] [place] [facility] [address] [id number] [place] [address]- 8549 May, [facility] [place] [facility] [address] [id number] [place] [address]- 4650 May, [facility] [place] [facility] [address] [id number] [place] [address]- 3340 May, [facility] [place] [facility] [address] [id number] [place] [address]- 7683 May, [facility] [place] [facility] [address] [id number] [place] [address]- 0633 May, [facility] [place] [facility] [address] [id number] [place] [address]- 9364 May, [facility] [place] [facility] [address] [id number] [place] [address]- 2947 May, [facility] [place] [facility] [address] [id number] [place] [address]- 0466 May, [facility] [place] [facility] [address] [id number] [place] [address]- 5939 May, [facility] [place] [facility] [address] [id number] [place] [address]- 2320 May, [facility] [place] [facility] [address] [id number] [place] [address]- 8799 May, [facility] [place] [facility] [address] [id number] [place] [address]- 8839 Apr, [facility] [place] [facility] [address] [id number] [place] [address]- 2789 Apr, [facility] [place] [facility] [address] [id number] [place] [address]- 9212 Apr, [facility] [place] [facility] [address] [id number] [place] [address]- 4313 Apr, [facility] [place] [facility] [address] [id number] [place] [address]- 6366 Apr, [facility] [place] [facility] [address] [id number] [place] [address]- 1876 Apr, [facility] [place] [facility] [address] [id number] [place] [address]- 9226 Mar, [facility] [place] [facility] [address] [id number] [place] [address]- 6578 Mar, [facility] [place] [facility] [address] [id number] [place] [address]- 4927 Mar, [facility] [place] [facility] [address] [id number] [place] [address]- 1952 Mar, [facility] [place] [facility] [address] [id number] [place] [address]- 8332 Mar, [facility] [place] [facility] [address] [id number] [place] [address]- 6215 Mar, [facility] [place] [facility] [address] [id number] [place] [address]- 8569 Mar, [facility] [place] [facility] [address] [facility] [id number] [place] [address]- 6384 Mar, [facility] [place] [facility] [address] [id number] [place] [address]- 3093 Feb, [facility] [place] [facility] [address] [id number] [place] [address]- 0711 Feb, [facility] [place] [facility] [address] [id number] [place] [address]- 2180 Feb, [facility] [place] [facility] [address] [id number] [place] [address]- 3760 Feb, [facility] [place] [facility] [address] [id number] [place] [address]- 3815 Feb, [facility] [place] [facility] [address] [id number] [place] [address]- 6793 Feb, [facility] [place] [facility] [address] [id number] [place] [address]- 6219 Feb, [facility] [place] [facility] [address] [id number] [place] [address]- 9574 Feb, [facility] [place] [facility] [address] [id number] [place] [address]- 2740 Feb, [facility] [address] [id number] [place] [address]- 7540 Feb, [facility] [place] [facility] [address] [id number] [place] [address]- 6870 Jan, [facility] [place] [facility] [address] [id number] [place] [address]- 7914 Jan, [facility] [place] [facility] [address] [id number] [place] [address]- 9774 Jan, [facility] [place] [facility] [address] [id number] [place] [address]- 8003 Jan, [facility] [place] [facility] [address] [id number] [place] [address]- 2571 Jan, [facility] [place] [facility] [address] [id number] [place] [address]- 6294 Jan, [facility] [place] [facility] [address] [id number] [place] [address]- 6653 Jan, [facility] [place] [facility] [address] [id number] [place] [address]- 8333 Jan, [facility] [place] [facility] [address] [id number] [place] [address]- 7490 Dec, [facility] [place] [facility] [address] [id number] [place] [address]- 4728 Dec, [facility] [place] [facility] [address] [id number], [place] [address]- 5354 Dec, [facility] [place] [facility] [address] [id number] [place] [address]- 6026 Dec, [facility] [place] [facility] [address] [id number]44 Dec, [facility] [place] [facility] [address] [id number] [place] [address]- 4177 Dec, [facility] [place] [facility] [address] [id number] [place] [address]- 9848 Dec, [facility] [place] [facility] [address] [id number] [place] [address]- 3364 Dec, [facility] [place] [facility] [address] [id number] [place] [address]- 7911 Nov, [facility] [place] [facility] [address] [id number] [place] [address]- 6196 Nov, [facility] [place] [facility] [address] [id number] [place] [address]- 8220 Nov, [facility] [place] [facility] [address] [id number], [place] [address]- 5429 Nov, [facility] [place] [facility] [address] [id number], [place] [address]- 3067 Nov, [facility] [place] [facility] [address] [id number], [place] [address]- 5596 Nov, [facility] [place] [facility] [address] [id number], [place] [address]- 8140 07 Nov, 2012 [facility] [place] [facility] [address] [id number], [place] [address]- 7309 10 Oct, 2012 [facility] [place] [facility] [address] [id number] [place] [address]- 5157 10 Oct, 2012 [facility] [place] [facility] [address] [id number] [place] [address]- 9699 05 Oct, 2012 [facility] [place] [facility] [address] [id number] [place] [address]- 5374 Sep, [facility] [address] [id number] [place] [address]- 6393 Sep, [facility] [place] [facility] [address] [id number] [place] [address]- 1516 Sep, [facility] [place] [facility] [address] [id number] [place] [address]- 1026 Sep, [facility] [place] [facility] [address] [id number] [place] [address]- 2450 Aug, [facility] [place] [facility] [address] [id number] [place] [address]- 3168 Aug, [facility] [place] [facility] [address] [id number] [place] [address]- 4025 Aug, [facility] [place] [facility] [address] [id number] [place] [address]- 9403 Aug, [facility] [address] [id number] [place] [address]- 4470 Aug, [facility] [place] [facility] [address] [id number] [place] [address]- 3323 Jul, [facility] [place] [facility] [address] [id number] [place] [address]- 1219 Jul, [facility] [place] [facility] [address] [id number] [place] [address]- 4578 Jul, [facility] [place] [facility] [address] [id number] [place] [address]- 8429 Jul, [facility] [place] [facility] [address] [id number] [place] [address] Jul, [facility] [place] [facility] [address] [id number] [place] [address] June, [facility] [place] [facility] [address] [id number] [place] [address] June, [facility] [address] [id number] [place] [address] June, [facility] [address] [id number] [place] [address] June, [facility] [address] [id number] [place] [address] June, [facility] [address] [id number] [place] [address] May, [facility] [address] [id number] [place] [address] May, [facility] [address] [id number] [place] [address] May, [facility] [address] [id number] [place] [address] May, [facility] [address] [id number] [place] [address] May, [facility] [address] [id number] [place] [address] May, [facility] [address] [id number] [place] [address] May, [facility] [place] [facility] [address] [id number] [place] [address] Apr, [facility] [place] [facility] [address] [id number] [address] Apr, [facility] [place] [facility] [address] [id number] [place] [address] Apr, [facility] [place] [facility] [address] [id number] [place] [address] Mar, [facility] [place] [facility] [address] [id number] [place] [address] Mar, [facility] [place] [facility] [address] [id number] [place] [address] 20 Mar, 2012 [facility] [address] [id number] [place] [address] 19 Mar, 2012 [facility] [address] [id number] [place] [address] 2546 13 Mar, 2012 [facility] [address] [id number] [place] [address]46 13 Mar, 2012 [facility] [address] [id number] [place] [address] 254 07 Mar, 2012 [facility] [facility] [address] [id number] [place] [address] 07 Mar, 2012 [facility] [address] [id number] [place] [address] 31 Feb, 2012 [facility] [address] [id number] [place] [address] 29 Feb, 2012 [facility] [address] [id number] [place] [address] Feb, [facility] [address] [id number] [place] [address] Feb, [facility] [address] [id number] [place] [address] 18 Feb, 2012 [facility] [address] [id number] [place] [address] 2541 15 Feb, 2012 [facility] [address] [id number] [place] [address] 2540 14 Feb, 2012 [facility] [place] [facility] [address] [id number] [place] [address] Jan, [facility] [place] [facility] [address] [id number] [place] [address] 25[address] Jan, [facility] [address] [id number] [place] [address] Jan, [facility] [place] [facility] [address] [id number] [place] [address] Jan, [facility] [place] [facility] [address] [id number] [place] [address] Jan, [facility] [place] [facility] [address] [id number] [place] [address] Jan, [facility] [place] [facility] [address] [id number] [place] [address] Jan, [facility] [place] [facility] [address] [id number] [place] [address] 39[address] Jan, [facility] [place] [facility] [address] [id number] [place] [address] Jan, [facility] [place] [facility] [address] [id number] [place] [address] 97[address] Jan, [facility] [place] [facility] [address] [id number] [place] [address]- [address] Jan, [facility] [place] [facility] [address] [id number] [place] [address] Jan, [facility] [place] [facility] [address] [id number] [place] [address] Jan, [facility] [place] [facility] [address] [id number] [place] [address] Jan, [facility] [place] [facility] [address] [id number] [address] Dec, [facility] [place] [facility] [address] [id number] [place] [address] Dec, [facility] [place] [facility] [address] [id number] [place] [address]- [address] Dec, [facility] [place] [facility] [address] [id number] [place] [address]- [address]676 Dec, [facility] [place] [facility] [address] [id number] [place] [address]- [address]45 Dec, [facility] [place] [facility] [address] [id number] [place] [address]- 2015 Dec, [facility] [place] [facility] [address] [id number] [place] [address] 1326 Dec, [facility] [place] [facility] [address] [id number] [place] [address]146 Dec, [facility] [place] [facility] [address] [id number] [place] [address]- 6[address] Dec, [facility] [place] [facility] [address] [id number] [place] [address]- 38[address] Dec, [facility] [place] [facility] [address] [id number] [place] [address]- [address]391 Dec, [facility] [place] [facility] [address] [id number] [place] [address]- 6[address] Dec, [facility] [place] [facility] [address] [id number] [place] [address]- 6973 Dec, [facility] [place] [facility] [address] [id number] [place] [address]- [address]871 Dec, [facility] [place] [facility] [address] [id number] [place] [address]- 9418 Dec, [facility] [place] [facility] [address] [id number] [place] [address]- [address] Dec, [facility] [place] [facility] [address] [id number] [place] [address]- [address]42 Dec, [facility] [place] [facility] [address] [id number] [place] [address] Dec, [facility] [place] [facility] [address] [id number] [place] [address] Dec, [facility] [place] [facility] [address] [id number] [place] [address] Dec, [facility] [place] [facility] [address] [id number] [place] [address] 31 Nov, 2011 [facility] [place] [facility] [address] [id number] [place] [address] 31 Nov, 2011 [facility] [place] [facility] [address] [id number] [place] [address] 30 Nov, 2011 [facility] [place] [facility] [address] [id number] [place] [address] Nov, [facility] [place] [facility] [address] [id number] [place] [address] Nov, [facility] [place] [facility] [address] [id number] [place] [address]61 24 Nov, 2011 [facility] [place] [facility] [address] [id number] [place] [address]96 Nov, [facility] [place] [facility] [address] [id number] [place] [address] 15 Nov, 2011 [facility] [place] [facility] [address] [id number] [place] [address]692 Nov, [facility] [place] [facility] [address] [id number] [place] [address] Nov, [facility] [place] [facility] [address] [id number] [place] [address] 9465 Nov, [facility] [place] [facility] [address] [id number] [place] [address] 40[address] Nov, [facility] [place] [facility] [address] [id number] [place] [address] 9230 Nov, [facility] [place] [facility] [address] [id number] [place] [address]386 30 Oct, 2011 [facility] [place] [facility] [address] [id number] [place] [address] 27 Oct, 2011 [facility] [place] [facility] [address] [id number] [place] [address] 24 Oct, 2011 [facility] [place] [facility] [address] [id number] [place] [address] 6766 20 Oct, 2011 [facility] [place] [facility] [address] [id number] [place] [address]66 Oct, [facility] [place] [facility] [address] [id number] [place] [address] 7766 Oct, [facility] [place] [facility] [address] [id number] [place] [address] Sep, [facility] [place] [facility] [address] [id number] [place] [address] 6137 Sep, [facility] [place] [facility] [address] [id number] [place] [address] Sep, [facility] [place] [facility] [address] [id number] [place] [address] Sep, [facility] [place] [facility] [address] [id number] [place] [address]777 Aug, [facility] [place] [facility] [address] [id number] [place] [address] 20[address] Aug, [facility] [place] [facility] [address] [id number] [place] [address] Aug, [facility] [place] [facility] [address] [id number] [place] [address] Jul, [facility] [place] [facility] [address] [id number] [place] [address] Jul, [facility] [place] [facility] [address] [id number] [place] [address] 46[address] Jul, [facility] [place] [facility] [address] [id number] [place] [address] 2963 Jul, [facility] [place] [facility] [address] [id number] [place] [address] 1845 June, [facility] [place] [facility] [address] [id number] [place] [address] 4152 June, [facility] [address] [id number] [place] [address] 9780 June, [facility] [address] [id number] [place] [address] 5770 June, [facility] [address] [id number] [place] [address] 3092 June, [facility] [address] [id number] [place] [address] 8[address] June, [facility] [address] [id number] [place] [address] 4[address] May, [facility] [address] [id number] [place] [address] 4798 May, [facility] [address] [id number] [place] [address] 6684 May, [facility] [address] [id number] [place] [address] 2899 May, [facility] [address] [id number] [place] [address] 8116 May, [facility] [address] [id number] [place] [address] 8204 May, [facility] [address] [id number] [place] [address] 6752 May, [facility] [address] [id number] [place] [address] 7970 May, [facility] [place] [facility] [address] [id number] [place] [address] 2147 May, [facility] [address] [id number] [place] [address] 9041 Apr, [facility] [address] [id number] [place] [address]- 7059 Mar, [facility] [address] [id number] [place] [address]- 7483 27 Mar, 2011 [facility] [place] [facility] [address] [id number] [place] [address] 6944 21 Mar, 2011 [facility] [place] [facility] [address] [id number] [place] [address]- 3341 10 Mar, 2011 [facility] [place] [facility] [address] [id number] [place] [address] 5960 Feb, [facility] [place] [facility] [address] [id number] [place] [address] 0595 Feb, [facility] [place] [facility] [address] [id number] [place] [address] 4680 Feb, [facility] [place] [facility] [address] [id number] [place] [address] 8242 Jan, [facility] [place] [facility] [address] [id number] [place] [address] 2170 Jan, [facility] [place] [facility] [address] [id number] [place] [address]- 9113 Jan, [facility] [place] [facility] [address] [id number], [place] [address] 3584 29 Dec, 2010 [facility] [place] [facility] [address] [id number] [address] 7006 Dec, [facility] [place] [facility] [address] [id number], [place] [address] 2767 16 Dec, 2010 [facility] [place] [facility] [address] [id number] [place] [address]- 8764 15 Dec, 2010 [facility] [place] [facility] [address] [id number], [place] [address] 5435 31 Nov, 2010 [facility] [place] [facility] [address] [id number] [place] [address]- 0413 31 Nov, 2010 [facility] [place] [facility] [address] [id number] [place] [address]- 7409 19 Nov, 2010 [facility] [place] [facility] [address] [id number] [place] [address]- 5912 18 Nov, 2010 [facility] [place] [facility] [address] [id number] [place] [address]- 7236 13 Oct, 2010 [facility] [place] [facility] [address] [id number] [place] [address]- 7086 20 Jul, 2010 [facility] [place] [facility] [address] [id number] [place] [address]- 9771 Jan, [facility] [place] [facility] [address] [id number] [place] [address]- 3510 30 Dec, 2009 [facility] [place] [facility] [address] [id number] [place] [address]- 3747 Dec, [facility] [place] [facility] [address] [id number] [place] [address]- 3980 Dec, [facility] [place] [facility] [address] [id number] [place] [address]- 1203 Dec, [facility] [place] [facility] [address] [id number] [place] [address]- 4969 Dec, [facility] [place] [facility] [address] [facility] [id number] [place] [address]- 0922 Dec, [facility] [place] [facility] [address] [id number] [place] [address]- 8794 Nov, [facility] [place] [facility] [address] [id number] [place] [address]- 2540 Nov, [facility] [place] [facility] [address] [id number] [place] [address]- 0786 Nov, [facility] [place] [facility] [address] [id number] [place] [address]- 4949 Apr, [facility] [place] [facility] [address] [facility] [id number] [place] [address] Apr, [facility] [place] [facility] [address] [id number] [place] [address]- 0531 29 Jan, 2009 [facility] [place] [facility] [address] [id number] [place] [address]- 6236 28 Jan, 2009 [facility] [place] [facility] [address] [id number] [place] [address]- 8606 23 Jan, 2009 [facility] [place] [facility] [address] [id number] [place] [address] 2546 17 Jan, 2009 [facility] [place] [facility] [address] [id number] [place] [address] 2540 14 Jan, 2009 [facility] [place] [facility] [address] [id number] [place] [address]- 1756 Jan, [facility] [place] [facility] [address] [id number] [place] [address]- 5218 30 Dec, 2008 [facility] [place] [facility] [address] [id number] [place] [address]- 9576 Dec, [facility] [place] [facility] [address] [id number] [place] [address]- 1944 18 Dec, 2008 [facility] [place] [facility] [address] [id number] [place] [address]- 6408 Dec, [facility] [place] [facility] [address] [facility] [id number] [place] [address]- 9441 Dec, [facility] [place] [facility] [address] [id number] [address]- 1007 Dec, [facility] [place] [facility] [address] [id number] [place] [address]- 7805 28 Nov, 2008 [facility] [place] [facility] [address] [id number] [place] [address] 2546 27 Nov, 2008 [facility] [place] [facility] [address] [id number], [place] [address] 2545 15 Aug, 2008 [facility] [place] [facility] [address] [id number], [place] [address]- 0079 Jul, [facility] [address] [facility] [id number] [place] [address] June, [facility] [address] [facility] [id number] [place] [address] Apr, IMMUNIZATIONS No Known Immunizations SOCIAL HISTORY Never Assessed REASON FOR VISIT medication PLAN OF CARE VITAL SIGNS MEDICATIONS Unknown [...] of loosened hardware/hip replacement ( [facility] in [place]) 09/2008 Hospitalization History in pt rehab s/p left hip repair 09/2008-11/2008 Hospitalization History [facility] 07/2009
--- OUTSIDE RECORDS SUMMARY | 2017-10-26 13:40 | XMS REPORT ---
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 Name Role Phone KATHLEEN TRIANAY Unavailable PROBLEMS Type Condition ICD9-CM Code PWN97-IA Code Onset Dates Condition Status SNOMED Code Problem Generalized anxiety disorder F41.1 Active 412976238 Problem Seasonal allergic rhinitis due to other allergic trigger J30.89 Active 604066475 Problem Anxiety disorder, unspecified F41.9 Active 441153522 Problem 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 Active 198467113 Problem Meningioma D32.9 Active 382361421 Problem Generalized osteoarthritis M15.9 Active 853535534 Problem Dementia without behavioral disturbance, unspecified dementia type F03.90 Active 32841033 Problem Debility R53.81 Active 29260903 Problem At risk for falls Z91.81 Active 671893762 Problem Other chronic pain G89.29 Active 21599771 Problem Panic attacks F41.0 Active 666958484 Problem Acute drug withdrawal syndrome without complication F19.230 Active 800971939 Problem Anxiety F41.9 Active 69471193 ALLERGIES No Information ENCOUNTERS Encounter Location Date Diagnosis [place] [id number], [place] [address] Nov, [facility] [address], [place] [address] Aug, [facility] [id number], [place] [address] Aug, Dementia without behavioral disturbance, unspecified dementia type F03.90 [facility] [id number], [place] [address] Aug, Dementia without behavioral disturbance, unspecified dementia type F03.90 and Anxiety F41.9 [place] [address], [place] [address] Jul, Dementia without behavioral disturbance, unspecified dementia type F03.90 [facility] [id number] [place] [address] 49870- 2911 Jul, 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 ; Generalized osteoarthritis M15.9 ; Other chronic pain G89.29 ; At risk for falls Z91.81 and Debility R53.81 [facility] [id number] [place] [address] 18025- 0357 Jul, [facility] [id number] [place] [address] 15960- 7841 June, Dementia without behavioral disturbance, unspecified dementia type F03.90 [facility] [id number] [place] [address] 50269- 7956 June, [facility] [id number] [place] [address] 32433- 5672 June, [facility] [id number] [place] [address] 53029- 0169 June, [facility] [id number] [place] [address] 97450- 4489 June, Dementia without behavioral disturbance, unspecified dementia type F03.90 and Anxiety F41.9 [facility] [id number] [place] [address] 53406- 8608 May, [facility] [id number] [place] [address] 03024- 5650 May, [facility] [id number] [place] [address] 12229 -8827 May, Anxiety F41.9 ; Acute drug withdrawal syndrome without complication F19.230 and Abdominal pain, unspecified abdominal location R10.9 [facility] [address], [place] [address] 3165 May, Panic attacks F41.0 [facility] [id number] [place] [address] 40524- 2308 May, Other chronic pain G89.29 and Generalized anxiety disorder F41.1 [place] [id number] [place] [address] 93499- 4539 Apr, Housing problems Z59.9 and Panic attacks F41.0 [facility] [id number] [place] [address] 38088- 6353 Mar, Panic attacks F41.0 [place] [id number] [place] [address] 47749- 3652 Feb, [place] [address] [address]20- 2182 Feb, Panic attacks F41.0 [place] [id number] [place] [address] 90869- 8361 Feb, Pain in right knee M25.561 ; Pain in left knee M25.562 ; Other chronic pain G89.29 ; Housing problems Z59.9 ; Dementia without behavioral disturbance, unspecified dementia type F03.90 ; Generalized anxiety disorder F41.1 and Advance directive declined by patient Z78.9 [place] [id number] [place] [address] 13215- 9078 Jan, Panic attacks F41.0 [facility] [id number] [place] [address] 05703- 8865 Jan, Panic attacks F41.0 [facility] [id number] [place] [address] 19297- 8481 Dec, Panic attacks F41.0 [facility] [address] 25799 -1699 Nov, Allergic contact dermatitis due to cosmetics L23.2 [facility] [id number] [place] [address] 18395- 6348 Nov, Panic attacks F41.0 [facility] [address] [place] [address]- 3080 08 Oct, 2016 Panic attacks F41.0 [facility] [id number] [place] [address] 41303- 9496 Sep, Panic attacks F41.0 ; Insect bite, initial encounter W57.XXXA and 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 [facility] [id number] [place] [address] 83674- 0191 Sep, [facility] [address] 02606- 8042 Aug, Generalized anxiety disorder F41.1 [place] [address] 37421- 6115 Jul, [facility] [id number] [place] [address] 13272 -3254 June, Seasonal allergic rhinitis due to other allergic trigger J30.89 [place] [id number] [place] [address] 19755- 2838 June, [facility] [id number] [place] [address] 64077- 1535 June, [facility] [id number] [place] [address] 00067 -7496 June, Dysuria R30.0 and RLQ abdominal pain R10.31 [place] [id number] [place] [address] 43875- 9448 May, Generalized anxiety disorder F41.1 ; Generalized osteoarthritis M15.9 and Dementia without behavioral disturbance, unspecified dementia type F03.90 [place] [id number] [place] [address] 17764- 7719 May, [facility] [id number] [place] [address] 14576- 2431 May, [place] [id number] [place] [address] 85485- 5054 May, [facility] [address], [place] [address]- 0204 Apr, [facility] [id number] [place] [address], [place] [address]- 6561 Apr, Generalized anxiety disorder F41.1 [facility] [id number] [place] [address]- 6861 Apr, [facility] [id number] [place] [address] 00106- 9928 Apr, [facility] [id number] [place] [address], [place] [address]- 4918 Apr, [facility] [id number] [place] [address] 98281- 4485 Apr, Generalized anxiety disorder F41.1 [facility] [id number] [place] [address] 64313- 2143 Mar, [facility] [address], [place] [address]- 2018 Mar, [facility] [address], [place] [address]- 4175 Mar, [facility] [address], [place] [address]- 5603 Mar, [facility] [address], [place] [address]- 3652 Mar, Generalized anxiety disorder F41.1 [facility] [address], [place] [address]- 5202 Feb, Anxiety disorder, unspecified F41.9 [facility] [address], [place] [address]- 3104 Feb, [facility] [address], [place] [address]- 2946 Feb, [facility] [address], [place] [address]- 5493 Feb, [facility] [address] [place] [address] 47049 -0326 Feb, Urinary frequency R35.0 and Acute cystitis without hematuria N30.00 [facility] [id number] [place] [address] 57334- 8539 Feb, [facility] [id number] [place] [address] 77118- 4592 Jan, [facility] [id number] [place] [address] 98931- 7776 Jan, [facility] [id number] [place] [address] 99384- 3697 Dec, [facility] [id number] [place] [address] 41368- 7646 Dec, [facility] [id number] [place] [address] 73502- 7202 Dec, Edema, unspecified type R60.9 [facility] [id number] [place] [address] 93678- 5242 Dec, [facility] [id number] [place] [address] 71226- 7298 Dec, [facility] [id number] [place] [address] 03879- 9699 30 Oct, 2015 Generalized anxiety disorder F41.1 [facility] [address] [place] [address] 74227- 9146 20 Oct, 2015 [facility] [id number] [place] [address] 22488- 2431 16 Oct, 2015 [facility] [id number] [place] [address] 79943- 7380 15 Oct, 2015 [facility] [address] [place] [address] 44224- 2187 06 Oct, 2015 [facility] [address], [place] [address]- 7057 Aug, Anxiety disorder, unspecified F41.9 [facility] [address], [place] [address]- 4513 Jul, Anxiety disorder, unspecified F41.9 [facility] [address] [place] [address]- 5903 Jul, Generalized anxiety disorder F41.1 [facility] [address], [place] [address]- 9755 Jul, [facility] [id number] [place] [address] 81334- 7257 June, [facility] [address] [place] [address] 51206- 5611 June, [facility] [id number] [place] [address] 57686- 0291 June, [facility] [address], [place] [address]- 5463 June, [facility] [address] [place] [address] 27831- 8677 May, [facility] [address], [place] [address] -1171 May, Dementia without behavioral disturbance, unspecified dementia type F03.90 and Generalized osteoarthritis M15.9 [facility] [address], [place] [address]- 9197 May, Generalized osteoarthritis M15.9 and 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 [facility] [address], [place] [address]- 3430 Apr, [facility] [address], [place] [address]- 3603 Apr, [facility] [address], [place] [address]- 9645 Apr, [place] [id number] [place] [address] 81001- 7970 Mar, [facility] [address] 77785- 8043 Mar, [place] [address] 39349- 2784 Mar, Generalized anxiety disorder F41.1 [place] [address] 21819- 7142 Feb, Other infective acute otitis externa of right ear H60.[address] 85773- 7589 Dec, Dysuria R30.0 ; Generalized osteoarthritis M15.9 and Gastroesophageal reflux disease, esophagitis presence not specified K21.[address] 18807- 3226 Dec, [place] [address] 64235- 9305 Dec, Generalized anxiety disorder F41.1 ; Encounter for immunization Z23 and Dementia F03.90 [place] [id number] [place] [address] 04120- 2484 Nov, [place] [id number] [place] [address] 02589- 9837 Oct, [place] [address] 61465- 9064 24 Oct, 2014 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 ; Chronic pain 338.29 ; Anxiety 300.00 and Dementia 294.[address] 51994- 0905 Oct, [place] [id number] [place] [address] 30072- 5075 Aug, Generalized anxiety disorder 300.02 and Dementia 294.20 [place] [address], [place] [address]- 8936 Aug, [facility] [address], [place] [address]- 6259 Aug, Anxiety 300.00 and Chronic pain 338.29 [facility] [address], [place] [address]- 8586 Jul, [facility] [id number] [place] [address] 75902- 7266 Jul, [facility] [address], [place] [address]- 9234 June, [facility] [id number] [place] [address] 61021- 5086 June, Anxiety, generalized 300.02 ; Dementia 294.20 and No condition on [place] II V71.09 [facility] [address], [place] [address]- 8399 May, [facility] [address], [place] [address]- 4266 May, [facility] [address], [place] [address]- 3556 Apr, [facility] [address], [place] [address]- 5588 Apr, [facility] [address], [place] [address]- 1606 Apr, [facility] [address], [place] [address]- 9522 Apr, [facility] [address], [place] [address]- 0647 Apr, [facility] [id number], [place] [address]- 2546 Apr, [facility] [address] 5732 Apr, [facility] [place] [facility] [address] [id number] [place] [address]- 3076 Apr, [facility] [place] [facility] [address] [id number] [place] [address]- 2467 Apr, [facility] [place] [facility] [address] [id number] [place] [address]- 9666 Apr, [facility] [place] [facility] [address] [id number] [place] [address]- 0781 Apr, [facility] [place] [facility] [address] [id number] [place] [address]- 6854 Apr, [facility] [place] [facility] [address] [id number] [place] [address]- 6210 Apr, [facility] [place] [facility] [address] [id number] [place] [address]- 5009 Apr, [facility] [place] [facility] [address] [id number] [place] [address]- 8993 Apr, [facility] [place] [facility] [address] [id number] [place] [address]- 5702 Apr, [facility] [place] [facility] [address] [id number] [place] [address]- 4194 Mar, 2014 [facility] [place] [facility] [address] [id number] [address]- 8604 Mar, 2014 [facility] [place] [facility] [address] [id number], [place] [address]- 7225 Mar, 2014 [facility] [place] [facility] [address] [id number] [place] [address]- 8996 Mar, 2014 [facility] [place] [facility] [address] [id number] [place] [address]- 2253 Mar, 2014 [facility] [place] [facility] [address] [id number] [place] [address]- 2128 Mar, 2014 [facility] [place] [facility] [address] [id number] [place] [address]- 7370 23 Mar, 2014 [facility] [place] [facility] [address] [id number] [place] [address]- 7086 23 Mar, 2014 [facility] [place] [facility] [address] [id number] [place] [address]- 2546 20 Mar, 2014 [facility] [place] [facility] [address] [id number] [place] [address]- 5469 20 Mar, 2014 [facility] [place] [facility] [address] [id number] [place] [address]- 2544 18 Mar, 2014 [facility] [place] [facility] [address] [id number] [place] [address]- 4220 18 Mar, 2014 [facility] [place] [facility] [address] [facility] [id number] [place] [address]- 7237 17 Mar, 2014 [facility] [place] [facility] [address] [facility] [id number] [place] [address]- 2844 17 Mar, 2014 [facility] [place] [facility] [address] [facility] [id number] [place] [address]- 1452 17 Mar, 2014 [facility] [place] [facility] [address] [facility] [id number] [place] [address]- 5055 17 Mar, 2014 [facility] [place] [facility] [address] [facility] [id number] [place] [address]- 3642 13 Mar, 2014 [facility] [place] [facility] [address] [facility] [id number], [place] [address]- 7875 13 Mar, 2014 [facility] [place] [facility] [address] [facility] [id number] [place] [address]- 2548 13 Mar, 2014 [facility] [place] [facility] [address] [facility] [id number] [place] [address]- 6061 13 Mar, 2014 [facility] [place] [facility] [address] [facility] [id number] [place] [address]- 8092 12 Mar, 2014 [facility] [place] [facility] [address] [facility] [id number] [place] [address]- 1932 12 Mar, 2014 [facility] [place] [facility] [address] [id number] [place] [address]- 2166 Mar, 2014 [facility] [place] [facility] [address] [id number] [place] [address]- 2546 Mar, 2014 [facility] [place] [facility] [address] [id number] [place] [address]- 4576 Mar, [facility] [place] [facility] [address] [id number] [place] [address]- 2548 Mar, [facility] [place] [facility] [address] [id number] [place] [address]- 6512 Feb, [facility] [place] [facility] [address] [id number] [place] [address]- 1647 Feb, [facility] [place] [facility] [address] [id number] [place] [address]- 6713 Feb, [facility] [place] [facility] [address] [id number] [place] [address]- 7861 Feb, [facility] [place] [facility] [address] [id number] [place] [address]- 0568 Feb, [facility] [place] [facility] [address] [facility] [id number] [place] [address]- 3684 Feb, [facility] [place] [facility] [address] [id number] [place] [address]- 2548 Feb, [facility] [place] [facility] [address] [id number] [place] [address]- 2540 Feb, [facility] [place] [facility] [address] [id number] [place] [address]- 0550 Feb, [facility] [place] [facility] [address] [id number] [place] [address]- 6999 Feb, [facility] [place] [facility] [address] [id number] [place] [address]- 3312 Feb, [facility] [place] [facility] [address] [id number] [place] [address]- 8308 Feb, [facility] [place] [facility] [address] [id number] [place] [address]- 5555 Feb, [facility] [place] [facility] [address] [id number] [place] [address]- 7983 Feb, [facility] [place] [facility] [address] [id number] [place] [address]- 4695 Feb, [facility] [place] [facility] [address] [id number] [place] [address]- 7143 Jan, [facility] [place] [facility] [address] [id number] [place] [address]- 8871 Jan, [facility] [place] [facility] [address] [id number] [place] [address] Jan, [facility] [place] [facility] [address] [id number] [place] [address] Jan, [facility] [place] [facility] [address] [id number] [place] [address] Jan, [facility] [place] [facility] [address] [id number] [place] [address] Jan, [facility] [place] [facility] [address] [id number] [place] [address] Jan, [facility] [place] [facility] [address] [id number] [place] [address] Jan, [facility] [place] [facility] [address] [id number] [place] [address] Jan, [facility] [place] [facility] [address] [id number] [place] [address] Jan, [facility] [place] [facility] [address] [id number] [place] [address] Jan, [facility] [place] [facility] [address] [id number], [place] [address] Jan, [facility] [place] [facility] [address] [id number] [place] [address] Jan, [facility] [place] [facility] [address] [facility] [id number] [place] [address] Jan, [facility] [place] [facility] [address] [id number] [place] [address] Jan, [facility] [place] [facility] [address] [id number] [place] [address] Jan, [facility] [place] [facility] [address] [id number] [place] [id number] Jan, [facility] [place] [facility] [address] [id number] [place] [address] Jan, [facility] [place] [facility] [address] [id number] [address] Jan, [facility] [place] [facility] [address] [id number] [place] [address] Jan, [facility] [place] [facility] [address] [id number] [place] [address] Dec, [facility] [place] [facility] [address] [id number] [place] [address] Dec, [facility] [place] [facility] [address] [id number] [place] [address] Dec, [facility] [place] [facility] [address] [id number], [place] [address] Dec, [facility] [place] [facility] [address] [id number] [place] [address] Dec, [facility] [place] [facility] [address] [id number] [place] [address] Dec, [facility] [place] [facility] [address] [facility] [id number] [place] [address] Dec, [facility] [place] [facility] [address] [id number] [place] [address] Nov, [facility] [place] [facility] [address] [id number] [place] [address] Nov, [facility] [place] [facility] [address] [id number] [place] [address] Nov, [facility] [place] [facility] [address] [id number] [place] [address] Nov, [facility] [place] [facility] [address] [id number] [place] [address] Nov, [facility] [place] [facility] [address] [id number] [place] [address] Nov, [facility] [place] [facility] [address] [id number] [place] [address] Nov, [facility] [place] [facility] [address] [id number] [place] [address] Nov, [facility] [place] [facility] [address] [id number] [place] [address] Nov, [facility] [place] [facility] [address] [id number] [place] [address] Nov, [facility] [place] [facility] [address] [id number] [place] [address] 29 Oct, 2013 [facility] [place] [facility] [address] [id number] [place] [address] 29 Oct, 2013 [facility] [place] [facility] [address] [id number] [place] [address] 15 Oct, 2013 [facility] [place] [facility] [address] [id number] [place] [address]- [address] 15 Oct, 2013 [facility] [place] [facility] [address] [id number] [place] [address] 15 Oct, 2013 [facility] [place] [facility] [address] [id number] [place] [address] 15 Oct, 2013 [facility] [place] [facility] [address] [id number] [place] [address]- [address] 10 Oct, 2013 [facility] [place] [facility] [address] [id number] [place] [address]- [address] 10 Oct, 2013 [facility] [place] [facility] [address] [id number] [place] [address] Oct, [facility] [place] [facility] [address] [id number] [place] [address] Oct, [facility] [place] [facility] [address] [id number] [place] [address] Sep, [facility] [place] [facility] [address] [id number] [place] [address] 8671 Sep, [facility] [place] [facility] [address] [id number] [place] [address]24 Sep, [facility] [place] [facility] [address] [id number] [place] [address] 9511 Sep, [facility] [place] [facility] [address] [id number] [place] [address] 3110 Sep, [facility] [place] [facility] [address] [id number] [place] [address] 1231 Sep, [facility] [place] [facility] [address] [id number] [place] [address]353 Sep, [facility] [place] [facility] [address] [id number] [place] [address] 9978 Sep, [facility] [place] [facility] [address] [id number] [place] [address] 7934 Sep, [facility] [place] [facility] [address] [id number] [place] [address]- 8533 Sep, [facility] [place] [facility] [address] [id number] [place] [address] 4921 Aug, [facility] [place] [facility] [address] [id number] [place] [address]- 6968 Aug, [facility] [place] [facility] [address] [id number] [place] [address]- 5932 Aug, [facility] [place] [facility] [address] [id number] [place] [address]- 9615 Aug, [facility] [place] [facility] [address] [id number] [place] [address]- 5411 Aug, [facility] [place] [facility] [address] [id number] [place] [address]- 8333 Aug, [facility] [place] [facility] [address] [id number] [place] [address]- 6597 Aug, [facility] [place] [facility] [address] [id number] [place] [address]- 4764 Aug, [facility] [place] [facility] [address] [id number] [place] [address]- 5358 Aug, [facility] [place] [facility] [address] [id number] [place] [address]- 5092 Aug, [facility] [place] [facility] [address] [id number] [place] [address]- 9677 Aug, [facility] [place] [facility] [address] [id number] [place] [address]- 2071 Aug, [facility] [place] [facility] [address] [id number] [place] [address]- 0176 Jul, [facility] [place] [facility] [address] [id number] [place] [address]- 9234 Jul, [facility] [place] [facility] [address] [id number] [place] [address]- 7958 Jul, [facility] [place] [facility] [address] [id number] [place] [address]- 2344 Jul, [facility] [place] [facility] [address] [id number] [place] [address]- 4101 Jul, [facility] [place] [facility] [address] [id number] [place] [address]- 2751 Jul, [facility] [place] [facility] [address] [id number] [place] [address]- 1665 17 Jul, 2013 [facility] [place] [facility] [address] [id number] [place] [address]- 8453 Jul, [facility] [place] [facility] [address] [id number] [place] [address]- 7667 Jul, [facility] [place] [facility] [address] [id number] [place] [address]- 0606 Jul, [facility] [place] [facility] [address] [id number] [place] [address]- 2640 Jul, [facility] [place] [facility] [address] [id number] [place] [address]- 9742 Jul, [facility] [place] [facility] [address] [id number] [place] [address]- 8821 Jul, [facility] [place] [facility] [address] [id number] [place] [address]- 7303 Jul, [facility] [place] [facility] [address] [id number] [place] [address]- 3387 Jul, [facility] [place] [facility] [address] [id number] [place] [address]- 8481 Jul, [facility] [place] [facility] [address] [id number] [place] [address]- 6050 Jul, [facility] [place] [facility] [address] [id number] [place] [address]- 3404 June, [facility] [place] [facility] [address] [id number] [place] [address]- 3224 June, [facility] [place] [facility] [address] [id number] [place] [address]- 9403 June, [facility] [place] [facility] [address] [id number] [place] [address]- 5497 June, [facility] [place] [facility] [address] [id number] [place] [address]- 8457 June, [facility] [place] [facility] [address] [id number] [place] [address]- 6024 June, [facility] [place] [facility] [address] [id number] [place] [address]- 4135 June, [facility] [place] [facility] [address] [id number] [place] [address]- 0317 June, [facility] [place] [facility] [address] [id number] [place] [address]- 3712 June, [facility] [place] [facility] [address] [id number] [place] [address]- 7894 June, [facility] [place] [facility] [address] [id number] [place] [address]- 7808 June, [facility] [place] [facility] [address] [id number] [place] [address]- 1085 June, [facility] [place] [facility] [address] [id number] [place] [address]- 4741 June, [facility] [place] [facility] [address] [id number] [place] [address]- 0839 June, [facility] [place] [facility] [address] [id number] [place] [address]- 5529 June, [facility] [place] [facility] [address] [id number] [place] [address]- 3995 June, [facility] [place] [facility] [address] [id number] [place] [address]- 9967 June, [facility] [place] [facility] [address] [id number] [place] [address]- 0701 June, [facility] [place] [facility] [address] [id number] [place] [address]- 6002 June, [facility] [place] [facility] [address] [id number] [place] [address]- 6513 June, [facility] [address] [id number] [place] [address]- 3786 June, [facility] [address] [id number] [place] [address]- 3646 June, [facility] [address] [id number] [place] [address]- 2604 June, [facility] [address] [id number] [place] [address]- 1818 June, [facility] [address] [id number] [place] [address]- 8331 June, [facility] [address] [id number] [place] [address]- 0530 June, [facility] [address] [id number] [place] [address]- 4499 June, [facility] [address] [id number] [place] [address]- 3220 June, [facility] [address] [id number] [place] [address]- 2800 June, [facility] [address] [id number] [place] [address]- 5364 June, [facility] [address] [id number] [place] [address]- 7987 June, [facility] [address] [id number] [place] [address]- 5783 June, [facility] [address] [id number] [place] [address]- 9828 May, [facility] [address] [id number] [place] [address]- 3937 May, [facility] [address] [id number] [place] [address]- 1648 May, [facility] [place] [facility] [address] [id number] [place] [address]- 9489 May, [facility] [place] [facility] [address] [id number] [place] [address]- 8743 May, [facility] [place] [facility] [address] [id number] [place] [address]- 9203 May, [facility] [place] [facility] [address] [id number] [place] [address]- 7285 May, [facility] [place] [facility] [address] [id number] [place] [address]- 2590 May, [facility] [place] [facility] [address] [id number] [place] [address]- 6851 May, [facility] [place] [facility] [address] [id number] [place] [address]- 4463 May, [facility] [place] [facility] [address] [id number] [place] [address]- 1936 May, [facility] [place] [facility] [address] [id number] [place] [address]- 1656 May, [facility] [place] [facility] [address] [id number] [place] [address]- 7496 May, [facility] [place] [facility] [address] [id number] [place] [address]- 6501 May, [facility] [place] [facility] [address] [id number] [place] [address]- 4774 May, [facility] [place] [facility] [address] [id number] [place] [address]- 2032 Apr, [facility] [place] [facility] [address] [id number] [place] [address]- 6323 Apr, [facility] [place] [facility] [address] [id number] [place] [address]- 7345 Apr, [facility] [place] [facility] [address] [id number] [place] [address]- 9686 Apr, [facility] [place] [facility] [address] [id number] [place] [address]- 6626 Apr, [facility] [place] [facility] [address] [id number] [place] [address]- 3936 Apr, [facility] [place] [facility] [address] [id number] [place] [address]- 1916 Mar, [facility] [place] [facility] [address] [id number] [place] [address]- 1488 Mar, [facility] [place] [facility] [address] [id number] [place] [address]- 9961 Mar, [facility] [place] [facility] [address] [id number] [place] [address]- 0421 Mar, [facility] [place] [facility] [address] [id number] [place] [address]- 6336 Mar, [facility] [place] [facility] [address] [id number] [place] [address]- 6736 Mar, [facility] [place] [facility] [address] [id number] [place] [address]- 1253 Mar, [facility] [place] [facility] [address] [facility] [id number] [place] [address]- 9506 Mar, [facility] [place] [facility] [address] [id number] [place] [address]- 9665 Feb, [facility] [place] [facility] [address] [id number] [place] [address]- 6346 Feb, [facility] [place] [facility] [address] [id number] [place] [address]- 9343 Feb, [facility] [place] [facility] [address] [id number] [place] [address]- 0359 Feb, [facility] [place] [facility] [address] [id number] [place] [address]- 4683 Feb, [facility] [place] [facility] [address] [id number] [place] [address]- 3636 Feb, [facility] [place] [facility] [address] [id number] [place] [address]- 7822 Feb, [facility] [place] [facility] [address] [id number] [place] [address]- 9496 Feb, [facility] [place] [facility] [address] [id number] [place] [address]- 6738 Feb, [facility] [address] [id number] [place] [address]- 8611 Feb, [facility] [place] [facility] [address] [id number] [place] [address]- 3888 Jan, [facility] [place] [facility] [address] [id number] [place] [address]- 3138 Jan, [facility] [place] [facility] [address] [id number] [place] [address]- 7565 Jan, [facility] [place] [facility] [address] [id number] [place] [address]- 2723 Jan, [facility] [place] [facility] [address] [id number] [place] [address]- 0406 Jan, [facility] [place] [facility] [address] [id number] [place] [address]- 1249 Jan, [facility] [place] [facility] [address] [id number] [place] [address]- 1233 Jan, [facility] [place] [facility] [address] [id number] [place] [address]- 3063 Jan, [facility] [place] [facility] [address] [id number] [place] [address]- 6356 Dec, [facility] [place] [facility] [address] [id number] [place] [address]- 1230 Dec, [facility] [place] [facility] [address] [id number], [place] [address]- 2200 Dec, [facility] [place] [facility] [address] [id number] [place] [address]- 3394 Dec, [facility] [place] [facility] [address] [id number] [address]8 Dec, [facility] [place] [facility] [address] [id number] [place] [address]- 7609 Dec, [facility] [place] [facility] [address] [id number] [place] [address]- 6022 Dec, [facility] [place] [facility] [address] [id number] [place] [address]- 1560 Dec, [facility] [place] [facility] [address] [id number] [place] [address]- 3001 Nov, [facility] [place] [facility] [address] [id number] [place] [address]- 2872 Nov, [facility] [place] [facility] [address] [id number] [place] [address]- 9502 Nov, [facility] [place] [facility] [address] [id number], [place] [address]- 2960 Nov, [facility] [place] [facility] [address] [id number], [place] [address]- 6176 Nov, [facility] [place] [facility] [address] [id number], [place] [address]- 8249 Nov, [facility] [place] [facility] [address] [id number], [place] [address]- 7655 07 Nov, 2012 [facility] [place] [facility] [address] [id number], [place] [address]- 5412 10 Oct, 2012 [facility] [place] [facility] [address] [id number] [place] [address]- 5323 10 Oct, 2012 [facility] [place] [facility] [address] [id number] [place] [address]- 1700 05 Oct, 2012 [facility] [place] [facility] [address] [id number] [place] [address]- 7887 Sep, [facility] [address] [id number] [place] [address]- 1763 Sep, [facility] [place] [facility] [address] [id number] [place] [address]- 5876 Sep, [facility] [place] [facility] [address] [id number] [place] [address]- 7606 Sep, [facility] [place] [facility] [address] [id number] [place] [address]- 4252 Aug, [facility] [place] [facility] [address] [id number] [place] [address]- 5708 Aug, [facility] [place] [facility] [address] [id number] [place] [address]- 7503 Aug, [facility] [place] [facility] [address] [id number] [place] [address]- 7598 Aug, [facility] [address] [id number] [place] [address]- 1448 Aug, [facility] [place] [facility] [address] [id number] [place] [address]- 9092 Jul, [facility] [place] [facility] [address] [id number] [place] [address]- 2821 Jul, [facility] [place] [facility] [address] [id number] [place] [address]- 1809 Jul, [facility] [place] [facility] [address] [id number] [place] [address]- 7456 Jul, [facility] [place] [facility] [address] [id number] [place] [address]- 7867 Jul, [facility] [place] [facility] [address] [id number] [place] [address]- 4426 June, [facility] [place] [facility] [address] [id number] [place] [address]- 5966 June, [facility] [address] [id number] [place] [address]- 7715 June, [facility] [address] [id number] [place] [address]- 8221 June, [facility] [address] [id number] [place]24 June, [facility] [address] [id number] [place] [address]- 3331 May, [facility] [address] [id number] [place] [address]- 3297 May, [facility] [address] [id number] [place] [address]- 2677 May, [facility] [address] [id number] [place] [address]- 7014 May, [facility] [address] [id number] [place] [address]- 6219 May, [facility] [address] [id number] [place] [address]- 6225 May, [facility] [address] [id number] [place] [address]- 1549 May, [facility] [place] [facility] [address] [id number] [place] [address]- 1023 Apr, [facility] [place] [facility] [address] [id number], [place] [address]- 1544 Apr, [facility] [place] [facility] [address] [id number] [place] [address]- 1123 Apr, [facility] [place] [facility] [address] [id number] [place] [address]- 7734 Mar, [facility] [place] [facility] [address] [id number] [place] [address]- 2321 Mar, [facility] [place] [facility] [address] [id number] [place] [address]- 7420 20 Mar, 2012 [facility] [address] [id number] [place] [address]- 9006 19 Mar, 2012 [facility] [address] [id number] [place] [address] 2546 13 Mar, 2012 [facility] [address] [id number] [place] [address] 2546 13 Mar, 2012 [facility] [address] [id number] [place] [address] 2542 07 Mar, 2012 [facility] [address] [id number] [place] [address]- 9906 07 Mar, 2012 [facility] [address] [id number] [place] [address]- 2094 31 Feb, 2012 [facility] [address] [id number] [place] [address]- 1043 29 Feb, 2012 [facility] [address] [id number] [place] [address]- 1720 Feb, [facility] [address] [id number] [place] [address]- 9173 Feb, [facility] [address] [id number] [place] [address]- 2516 18 Feb, 2012 [facility] [address] [id number] [place] [address] 2540 15 Feb, 2012 [facility] [address] [id number] [place] [address] 2549 14 Feb, 2012 [facility] [place] [facility] [address] [id number] [place] [address] 2546 Jan, [facility] [place] [facility] [address] [id number] [place] [address] 2546 Jan, [facility] [address] [id number] [place] [address]- 7694 Jan, [facility] [place] [facility] [address] [id number] [place] [address]- 8429 Jan, [facility] [place] [facility] [address] [id number] [place] [address]- 8716 Jan, [facility] [place] [facility] [address] [id number] [place] [address]- 7413 Jan, [facility] [place] [facility] [address] [id number] [place] [address]- 2300 Jan, [facility] [place] [facility] [address] [id number] [place] [address]- 9656 Jan, [facility] [place] [facility] [address] [id number] [place] [address] Jan, [facility] [place] [facility] [address] [id number] [place] [address] Jan, [facility] [place] [facility] [address] [id number] [place] [address] Jan, [facility] [place] [facility] [address] [id number] [place] [address] Jan, [facility] [place] [facility] [address] [id number] [place] [address] Jan, [facility] [place] [facility] [address] [id number] [place] [address] Jan, [facility] [place] [facility] [address] [id number], [place] [address] Dec, [facility] [place] [facility] [address] [id number] [place] [address] Dec, [facility] [place] [facility] [address] [id number] [place] [address] Dec, [facility] [place] [facility] [address] [id number] [place] [address] Dec, [facility] [place] [facility] [address] [id number] [place] [address] Dec, [facility] [place] [facility] [address] [id number] [place] [address] Dec, [facility] [place] [facility] [address] [id number] [place] [address] Dec, [facility] [place] [facility] [address] [id number] [place] [address] Dec, [facility] [place] [facility] [address] [id number] [place] [address]100 Dec, [facility] [place] [facility] [address] [id number] [place] [address] Dec, [facility] [place] [facility] [address] [id number] [place] [address] Dec, [facility] [place] [facility] [address] [id number] [place] [address]73 Dec, [facility] [place] [facility] [address] [id number] [place] [address] 9843 Dec, [facility] [place] [facility] [address] [id number] [place] [address]369 Dec, [facility] [place] [facility] [address] [id number] [place] [address] Dec, [facility] [place] [facility] [address] [id number] [place] [address] Dec, [facility] [place] [facility] [address] [id number] [place] [address]47 Dec, [facility] [place] [facility] [address] [id number] [place] [address] Dec, [facility] [place] [facility] [address] [id number] [place] [address] 2852 Dec, [facility] [place] [facility] [address] [id number] [place] [address]6 Dec, [facility] [place] [facility] [address] [id number] [place] [address] 31 Nov, 2011 [facility] [place] [facility] [address] [id number] [place] [address] 31 Nov, 2011 [facility] [place] [facility] [address] [id number] [place] [address] 30 Nov, 2011 [facility] [place] [facility] [address] [id number] [place] [address] 1346 Nov, [facility] [place] [facility] [address] [id number] [place] [address] 1234 Nov, [facility] [place] [facility] [address] [id number] [place] [address] 3690 24 Nov, 2011 [facility] [place] [facility] [address] [id number] [place] [address] 4148 Nov, [facility] [place] [facility] [address] [id number] [place] [address] 15 Nov, 2011 [facility] [place] [facility] [address] [id number] [place] [address] Nov, [facility] [place] [facility] [address] [id number] [place] [address] 3416 Nov, [facility] [place] [facility] [address] [id number] [place] [address]180 Nov, [facility] [place] [facility] [address] [id number] [place] [address]656 Nov, [facility] [place] [facility] [address] [id number] [place] [address]- [address]256 Nov, [facility] [place] [facility] [address] [id number] [place] [address] 30 Oct, 2011 [facility] [place] [facility] [address] [id number] [place] [address] 27 Oct, 2011 [facility] [place] [facility] [address] [id number] [place] [address] 6[address] 24 Oct, 2011 [facility] [place] [facility] [address] [id number] [place] [address] 8670 20 Oct, 2011 [facility] [place] [facility] [address] [id number] [place] [address]26 Oct, [facility] [place] [facility] [address] [id number] [place] [address] 9966 Oct, [facility] [place] [facility] [address] [id number] [place] [address]247 Sep, [facility] [place] [facility] [address] [id number] [place] [address]- 2097 Sep, [facility] [place] [facility] [address] [id number] [place] [address]- 8584 Sep, [facility] [place] [facility] [address] [id number] [place] [address] 39[address] Sep, [facility] [place] [facility] [address] [id number] [place] [address] 1371 Aug, [facility] [place] [facility] [address] [id number] [place] [address]- 1377 Aug, [facility] [place] [facility] [address] [id number] [place] [address] Aug, [facility] [place] [facility] [address] [id number] [place] [address]- [address]476 Jul, [facility] [place] [facility] [address] [id number] [place] [address]- 8993 Jul, [facility] [place] [facility] [address] [id number] [place] [address] 9386 Jul, [facility] [place] [facility] [address] [id number] [place] [address]- 1557 Jul, [facility] [place] [facility] [address] [id number] [place] [address] 9298 June, [facility] [place] [facility] [address] [id number] [place] [address] 3628 June, [facility] [address] [id number] [place] [address] 7915 June, [facility] [address] [id number] [place] [address] 8602 June, [facility] [address] [id number] [place] [address] June, [facility] [address] [id number] [place] [address]- 5951 June, [facility] [address] [id number] [place] [address]- 6[address] May, [facility] [address] [id number] [place] [address]- 7935 May, [facility] [address] [id number] [place] [address]- 0172 May, [facility] [address] [id number] [place] [address]- 8544 May, [facility] [address] [id number] [place] [address]- 3947 May, [facility] [address] [id number] [place] [address]- 7101 May, [facility] [address] [id number] [place] [address]- 3936 May, [facility] [address] [id number] [place] [address]- 7578 May, [facility] [place] [facility] [address] [id number] [place] [address]- 6674 May, [facility] [address] [id number] [place] [address]- 6687 Apr, [facility] [address] [id number] [place] [address]- 5736 Mar, [facility] [facility] [address] [id number] [place] [address] 27 Mar, 2011 [facility] [place] [facility] [address] [id number] [place] [address] 21 Mar, 2011 [facility] [place] [facility] [address] [id number] [place] [address] 10 Mar, 2011 [facility] [place] [facility] [address] [id number] [place] [address] Feb, [facility] [place] [facility] [address] [id number] [place] [address] Feb, [facility] [place] [facility] [address] [id number] [place] [address] Feb, [facility] [place] [facility] [address] [id number] [place] [address] Jan, [facility] [place] [facility] [address] [id number] [place] [address] Jan, [facility] [place] [facility] [address] [id number] [place] [address] Jan, [facility] [place] [facility] [address] [id number], [place] [address] 29 Dec, 2010 [facility] [place] [facility] [address] [id number], [place] [address] Dec, [facility] [place] [facility] [address] [id number], [place] [address] 16 Dec, 2010 [facility] [place] [facility] [address] [id number] [place] [address] 15 Dec, 2010 [facility] [place] [facility] [address] [id number], [place] [address] 31 Nov, 2010 [facility] [place] [facility] [address] [id number] [place] [address] 31 Nov, 2010 [facility] [place] [facility] [address] [id number] [place] [address] 19 Nov, 2010 [facility] [place] [facility] [address] [id number] [place] [address] 7568 18 Nov, 2010 [facility] [place] [facility] [address] [id number] [place] [address] 13 Oct, 2010 [facility] [place] [facility] [address] [id number] [place] [address] 20 Jul, 2010 [facility] [place] [facility] [address] [id number] [place] [address] Jan, [facility] [place] [facility] [address] [id number] [place] [address]77 30 Dec, 2009 [facility] [place] [facility] [address] [id number] [place] [address] Dec, [facility] [place] [facility] [address] [id number] [place] [address] Dec, [facility] [place] [facility] [address] [id number] [place] [address] Dec, [facility] [place] [facility] [address] [id number] [place] [address] Dec, [facility] [place] [facility] [address] [facility] [id number] [place] [address]34 Dec, [facility] [place] [facility] [address] [id number] [place] [address]99 Nov, [facility] [place] [facility] [address] [id number] [place] [address] Nov, [facility] [place] [facility] [address] [id number] [place] [address] Nov, [facility] [place] [facility] [address] [id number] [place] [address] Apr, [facility] [place] [facility] [address] [facility] [id number] [place] [address] Apr, [facility] [place] [facility] [address] [id number] [place] [address] 29 Jan, 2009 [facility] [place] [facility] [address] [id number] [place] [address] 28 Jan, 2009 [facility] [place] [facility] [address] [id number] [place] [address]36 23 Jan, 2009 [facility] [place] [facility] [address] [id number] [place] [address] 2546 17 Jan, 2009 [facility] [place] [facility] [address] [id number] [place] [address] 2542 14 Jan, 2009 [facility] [place] [facility] [address] [id number] [place] [address] 120[address] Jan, [facility] [place] [facility] [address] [id number] [place] [address] 1997 30 Dec, 2008 [facility] [place] [facility] [address] [id number] [place] [address] Dec, [facility] [place] [facility] [address] [id number] [place] [address] 118[address] 18 Dec, 2008 [facility] [place] [facility] [address] [id number] [place] [address] Dec, [facility] [place] [facility] [address] [facility] [id number] [place] [address] Dec, [facility] [place] [facility] [address] [id number], [place] [address] Dec, [facility] [place] [facility] [address] [id number] [place] [address]275 28 Nov, 2008 [facility] [place] [facility] [address] [id number] [place] [address] 2546 27 Nov, 2008 [facility] [place] [facility] [address] [id number], [place] [address] 15 Aug, 2008 [facility] [place] [facility] [address] [id number], [place] [address] Jul, [facility] [address] [facility] [id number] [place] [address] June, [facility] [address] [facility] [id number] [place] [address] Apr, IMMUNIZATIONS No Known Immunizations SOCIAL HISTORY [...] of loosened hardware/hip replacement ( [facility] in [place]) 09/2008 Hospitalization History in pt rehab s/p left hip repair 09/2008-11/2008 Hospitalization History [facility] 07/2009
--- OUTSIDE RECORDS SUMMARY | 2017-10-26 13:41 | XMS REPORT ---
Author Author [facility] Address [address] [place] [address] Care Team Providers Care Dealer Card Room Name Role Phone KATHLEEN TRIANAY Unavailable PROBLEMS Type Condition ICD9-CM Code GSQ35-RQ Code Onset Dates Condition Status SNOMED Code Problem Generalized anxiety disorder F41.1 Active 660250570 Problem Seasonal allergic rhinitis due to other allergic trigger J30.89 Active 617460838 Problem Anxiety disorder, unspecified F41.9 Active 614023283 Problem 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 Active 617655054 Problem Meningioma D32.9 Active 279431929 Problem Generalized osteoarthritis M15.9 Active 664851866 Problem Dementia without behavioral disturbance, unspecified dementia type F03.90 Active 20311912 Problem Debility R53.81 Active 42457852 Problem At risk for falls Z91.81 Active 776863445 Problem Other chronic pain G89.29 Active 62568531 Problem Panic attacks F41.0 Active 126640155 Problem Acute drug withdrawal syndrome without complication F19.230 Active 398340940 Problem Anxiety F41.9 Active 13063898 ALLERGIES No Information ENCOUNTERS Encounter Location Date Diagnosis [facility] [id number], [place] [address] Nov, [facility], [place] [address], [place] [address] Aug, [facility], [place] [id number], [place] [address] Aug, Dementia without behavioral disturbance, unspecified dementia type F03.90 [facility], [place] [id number], [place] [address] 6025 Aug, Dementia without behavioral disturbance, unspecified dementia type F03.90 and Anxiety F41.9 [place] [address], [place] [address] Jul, Dementia without behavioral disturbance, unspecified dementia type F03.90 [facility], [place] [id number] [place] [address] 73685- 5114 Jul, 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 ; Generalized osteoarthritis M15.9 ; Other chronic pain G89.29 ; At risk for falls Z91.81 and Debility R53.81 [facility], [place] [id number] [place] [address] 29749- 2602 Jul, [facility], [place] [id number] [place] [address] 61406- 4774 June, Dementia without behavioral disturbance, unspecified dementia type F03.90 [facility], [place] [id number] [place] [address] 24039- 2617 June, [facility], [place] [id number] [place] [address] 50411- 4904 June, [facility], [place] [id number] [place] [address] 99998- 1795 June, [facility], [place] [id number] [place] [address] 37350- 8659 June, Dementia without behavioral disturbance, unspecified dementia type F03.90 and Anxiety F41.9 [facility], [place] [id number] [place] [address] 43276- 1866 May, [facility], [place] [id number] [place] [address] 42184- 3766 May, [facility] [id number] [place] [address] 33524 -0472 May, Anxiety F41.9 ; Acute drug withdrawal syndrome without complication F19.230 and Abdominal pain, unspecified abdominal location R10.9 [facility], [place] [address], [place] [address] 9117 May, Panic attacks F41.0 [facility], [place] [id number] [place] [address] 47295- 2177 May, Other chronic pain G89.29 and Generalized anxiety disorder F41.1 [place] [facility] [id number] [place] [address] 41919- 6004 Apr, Housing problems Z59.9 and Panic attacks F41.0 [facility], [place] [id number] [place] [address] 64721- 1903 Mar, Panic attacks F41.0 [place] [id number] [place] [address] 26261- 9186 Feb, [place] [address] 84063- 7401 Feb, Panic attacks F41.0 [place] [id number] [place] [address] 79040- 5089 Feb, Pain in right knee M25.561 ; Pain in left knee M25.562 ; Other chronic pain G89.29 ; Housing problems Z59.9 ; Dementia without behavioral disturbance, unspecified dementia type F03.90 ; Generalized anxiety disorder F41.1 and Advance directive declined by patient Z78.9 [place] [id number] [place] [address] 03058- 0786 Jan, Panic attacks F41.0 [facility], [place] [id number] [place] [address] 73343- 2754 Jan, Panic attacks F41.0 [facility], [place] [id number] [place] [address] 82611- 7390 Dec, Panic attacks F41.0 [facility] [address] 02308 -9076 Nov, Allergic contact dermatitis due to cosmetics L23.2 [facility], [place] [id number] [place] [address] 08322- 4020 Nov, Panic attacks F41.0 [facility], [place] [address] [place] [address]- 8481 08 Oct, 2016 Panic attacks F41.0 [facility], [place] [id number] [place] [address] 87941- 0106 Sep, Panic attacks F41.0 ; Insect bite, initial encounter W57.XXXA and 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 [facility], [place] [id number] [place] [address] 08318- 6299 Sep, [facility], [place] [address] 48801- 6504 Aug, Generalized anxiety disorder F41.1 [place] [address] 44842- 9823 Jul, [facility] [id number] [place] [address] 22758 -8779 June, Seasonal allergic rhinitis due to other allergic trigger J30.89 [place] [id number] [place] [address] 29573- 6672 June, [facility], [place] [id number] [place] [address] 59404- 9674 June, [facility] [id number] [place] [address] 76751 -8237 June, Dysuria R30.0 and RLQ abdominal pain R10.31 [place] [id number] [place] [address] 85081- 8824 May, Generalized anxiety disorder F41.1 ; Generalized osteoarthritis M15.9 and Dementia without behavioral disturbance, unspecified dementia type F03.90 [place] [id number] [place] [address] 75875- 6201 May, [facility], [place] [id number] [place] [address] 38124- 1600 May, [place] [id number] [place] [address] 72230- 0846 May, [facility], [place] [address], [place] [address]- 8077 Apr, [facility] [address] [place] [address], [place] [address]- 1091 Apr, Generalized anxiety disorder F41.1 [facility], [place] [id number] [address]- 9815 Apr, [facility] [id number] [place] [address] 55272- 7635 Apr, [facility] [address] [place] [address], [place] [address]- 0085 Apr, [facility] [id number] [place] [address] 97026- 3720 Apr, Generalized anxiety disorder F41.1 [facility], [place] [id number] [place] [address] 79888- 2967 Mar, [facility] [address], [place] [address]- 3435 Mar, [facility], [place] [address], [place] [address]- 6110 Mar, [facility] [address], [place] [address]- 2529 Mar, [facility], [place] [address], [place] [address]- 8536 Mar, Generalized anxiety disorder F41.1 [facility], [place] [address], [place] [address]- 0988 Feb, Anxiety disorder, unspecified F41.9 [facility], [place] [address], [place] [address]- 4145 Feb, [facility] [address], [place] [address]- 7939 Feb, [facility], [place] [address], [place] [address]- 9571 Feb, [facility] [address] [place] [address] 45203 -0613 Feb, Urinary frequency R35.0 and Acute cystitis without hematuria N30.00 [facility], [place] [id number] [place] [address] 61220- 0498 Feb, [facility], [place] [id number] [place] [address] 77853- 3619 Jan, [facility], [place] [id number] [place] [address] 54525- 7114 Jan, [facility], [place] [id number] [place] [address] 43815- 5097 Dec, [facility], [place] [id number] [place] [address] 19722- 7904 Dec, [facility], [place] [id number] [place] [address] 35145- 2280 Dec, Edema, unspecified type R60.9 [facility], [place] [id number] [place] [address] 88945- 9501 Dec, [facility], [place] [id number] [place] [address] 31657- 0685 Dec, [facility], [place] [id number] [place] [address] 15586- 1508 30 Oct, 2015 Generalized anxiety disorder F41.1 [facility], [place] [id number] [place] [address] 01646- 5666 20 Oct, 2015 [facility], [place] [id number] [place] [address] 37898- 2667 16 Oct, 2015 [facility], [place] [id number] [place] [address] 59020- 0583 15 Oct, 2015 [facility], [place] [id number] [place] [address] 23139- 1128 06 Oct, 2015 [facility], [place] [address], [place] [address]- 1657 Aug, Anxiety disorder, unspecified F41.9 [facility], [place] [address], [place] [address]- 8763 Jul, Anxiety disorder, unspecified F41.9 [facility], [place] [address] [address]- 9335 Jul, Generalized anxiety disorder F41.1 [facility], [place] [address], [place] [address]- 3689 Jul, [facility], [place] [id number] [place] [address] 30637- 9987 June, [facility], [place] [id number] [place] [address] 17988- 0655 June, [facility], [place] [id number] [place] [address] 88103- 8336 June, [facility], [place] [address], [place] [address]- 2752 June, [facility], [place] [id number] [place] [address] 95413- 1922 May, [facility] [address], [place] [address] -4331 May, Dementia without behavioral disturbance, unspecified dementia type F03.90 and Generalized osteoarthritis M15.9 [facility], [place] [address], [place] [address]- 9361 May, Generalized osteoarthritis M15.9 and 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 [facility], [place] [address], [place] [address]- 4910 Apr, [facility], [place] [address], [place] [address]- 6731 Apr, [facility], [place] [address], [place] [address]- 5783 Apr, [place] [id number] [place] [address] 85926- 8889 Mar, [facility], [place] [address] 04421- 4243 Mar, [place] [address] 96730- 9457 Mar, Generalized anxiety disorder F41.1 [place] [address] 76328- 4124 Feb, Other infective acute otitis externa of right ear H60.[address] 06286- 9172 Dec, Dysuria R30.0 ; Generalized osteoarthritis M15.9 and Gastroesophageal reflux disease, esophagitis presence not specified K21.[address] 20590- 9972 Dec, [place] [address] 42727- 9466 Dec, Generalized anxiety disorder F41.1 ; Encounter for immunization Z23 and Dementia F03.90 [place] [id number] [place] [address] 28187- 5566 Nov, [place] [id number] [place] [address] 18007- 9790 Oct, [place] [address] 07221- 8310 24 Oct, 2014 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 ; Chronic pain 338.29 ; Anxiety 300.00 and Dementia 294.[address] 90528- 5944 Oct, [place] [id number] [place] [address] 91727- 2971 Aug, Generalized anxiety disorder 300.02 and Dementia 294.20 [place] [address], [place] [address]- 3136 Aug, [facility], [place] [address], [place] [address]- 1669 Aug, Anxiety 300.00 and Chronic pain 338.29 [facility], [place] [address], [place] [address]- 4491 Jul, [facility], [place] [id number] [place] [address] 06096- 9296 Jul, [facility], [place] [address], [place] [address]- 2129 June, [facility], [place] [id number] [place] [address] 59428- 0866 June, Anxiety, generalized 300.02 ; Dementia 294.20 and No condition on Starr II V71.09 [facility], [place] [address], [place] [address]- 7072 May, [facility], [place] [address], [place] [address]- 9526 May, [facility], [place] [address], [place] [address]- 1056 Apr, [facility], [place] [address], [place] [address]- 5404 Apr, [facility], [place] [address], [place] [address]- 1526 Apr, [facility], [place] [address], [place] [address]- 5367 Apr, [facility], [place] [address], [place] [address]- 2497 Apr, [facility], [place] [id number], [place] [address]- 2546 Apr, [facility], [place] [address] 3343 Apr, [facility] [place] [facility] [address] [id number] [place] [address]- 9577 Apr, [facility] [place] [facility] [address] [id number] [place] [address]- 3990 Apr, [facility] [place] [facility] [address] [id number] [place] [address]- 9245 Apr, [facility] [place] [facility] [address] [id number] [place] [address]- 8838 Apr, [facility] [place] [facility] [address] [id number] [place] [address]- 4820 Apr, [facility] [place] [facility] [address] [id number] [place] [address]- 6926 Apr, [facility] [place] [facility] [address] [id number] [place] [address]- 4516 Apr, [facility] [place] [facility] [address] [id number] [place] [address]- 5121 Apr, [facility] [place] [facility] [address] [id number] [place] [address]- 7789 Apr, [facility] [place] [facility] [address] [id number] [place] [address]- 6512 Mar, 2014 [facility] [place] [facility] [address] [id number] [address]- 2724 Mar, 2014 [facility] [place] [facility] [address] [id number], [place] [address]- 0523 Mar, 2014 [facility] [place] [facility] [address] [id number] [place] [address]- 1693 Mar, 2014 [facility] [place] [facility] [address] [id number] [place] [address]- 5153 Mar, 2014 [facility] [place] [facility] [address] [id number] [place] [address]- 1877 Mar, 2014 [facility] [place] [facility] [address] [id number] [place] [address]- 3771 23 Mar, 2014 [facility] [place] [facility] [address] [id number] [place] [address]- 7146 23 Mar, 2014 [facility] [place] [facility] [address] [id number] [place] [address]- 2546 20 Mar, 2014 [facility] [place] [facility] [address] [id number] [place] [address]- 8942 20 Mar, 2014 [facility] [place] [facility] [address] [id number] [place] [address]- 2549 18 Mar, 2014 [facility] [place] [facility] [address] [id number] [place] [address]- 1920 18 Mar, 2014 [facility] [place] [facility] [address] [facility] [id number] [place] [address]- 9237 17 Mar, 2014 [facility] [place] [facility] [address] [facility] [id number] [place] [address]- 4346 17 Mar, 2014 [facility] [place] [facility] [address] [facility] [id number] [place] [address]- 5309 17 Mar, 2014 [facility] [place] [facility] [address] [facility] [id number] [place] [address]- 7534 17 Mar, 2014 [facility] [place] [facility] [address] [facility] [id number] [place] [address]- 7359 13 Mar, 2014 [facility] [place] [facility] [address] [facility] [id number], [place] [address]- 3147 13 Mar, 2014 [facility] [place] [facility] [address] [facility] [id number] [place] [address]- 2543 13 Mar, 2014 [facility] [place] [facility] [address] [facility] [id number] [place] [address]- 2218 13 Mar, 2014 [facility] [place] [facility] [address] [facility] [id number] [place] [address]- 1059 12 Mar, 2014 [facility] [place] [facility] [address] [facility] [id number] [place] [address]- 5207 12 Mar, 2014 [facility] [place] [facility] [address] [id number] [place] [address]- 9096 Mar, 2014 [facility] [place] [facility] [address] [id number] [place] [address]- 2546 Mar, 2014 [facility] [place] [facility] [address] [id number] [place] [address]- 0196 Mar, [facility] [place] [facility] [address] [id number] [place] [address]- 2549 Mar, [facility] [place] [facility] [address] [id number] [place] [address]- 6534 Feb, [facility] [place] [facility] [address] [id number] [place] [address]- 9848 Feb, [facility] [place] [facility] [address] [id number] [place] [address]- 4760 Feb, [facility] [place] [facility] [address] [id number] [place] [address]- 4388 Feb, [facility] [place] [facility] [address] [id number] [place] [address]- 8369 Feb, [facility] [place] [facility] [address] [facility] [id number] [place] [address]- 9402 Feb, [facility] [place] [facility] [address] [id number] [place] [address]- 2544 Feb, [facility] [place] [facility] [address] [id number] [place] [address]- 2545 Feb, [facility] [place] [facility] [address] [id number] [place] [address]- 0654 Feb, [facility] [place] [facility] [address] [id number] [place] [address]- 9736 Feb, [facility] [place] [facility] [address] [id number] [place] [address]- 2836 Feb, [facility] [place] [facility] [address] [id number] [place] [address]- 3830 Feb, [facility] [place] [facility] [address] [id number] [place] [address]- 4694 Feb, [facility] [place] [facility] [address] [id number] [place] [address]- 4004 Feb, [facility] [place] [facility] [address] [id number] [place] [address]- 0729 Feb, [facility] [place] [facility] [address] [id number] [place] [address] Jan, [facility] [place] [facility] [address] [id number] [place] [address] Jan, [facility] [place] [facility] [address] [id number] [place] [address] Jan, [facility] [place] [facility] [address] [id number] [place] [address] Jan, [facility] [place] [facility] [address] [id number] [place] [address] Jan, [facility] [place] [facility] [address] [id number] [place] [address] Jan, [facility] [place] [facility] [address] [id number] [place] [address] Jan, [facility] [place] [facility] [address] [id number] [place] [address] Jan, [facility] [place] [facility] [address] [id number] [place] [address] Jan, [facility] [place] [facility] [address] [id number] [place] [address]- [address] Jan, [facility] [place] [facility] [address] [id number] [place] [address]- [address] Jan, [facility] [place] [facility] [address] [id number], [place] [address] Jan, [facility] [place] [facility] [address] [id number] [place] [address] Jan, [facility] [place] [facility] [address] [facility] [id number] [place] [address] Jan, [facility] [place] [facility] [address] [id number] [place] [address] Jan, [facility] [place] [facility] [address] [id number] [place] [address] Jan, [facility] [place] [facility] [address] [id number] [place] [id number] Jan, [facility] [place] [facility] [address] [id number] [id number] [address] Jan, [facility] [place] [facility] [address] [id number] [place] [address] [address] Jan, [facility] [place] [facility] [address] [id number] [place] [address] Jan, [facility] [place] [facility] [address] [id number] [place] [address] Dec, [facility] [place] [facility] [address] [id number] [place] [address] Dec, [facility] [place] [facility] [address] [id number] [place] [address] Dec, [facility] [place] [facility] [address] [id number], [place] [address] Dec, [facility] [place] [facility] [address] [id number] [place] [address] Dec, [facility] [place] [facility] [address] [id number] [place] [address] Dec, [facility] [place] [facility] [address] [facility] [id number] [place] [address] Dec, [facility] [place] [facility] [address] [id number] [place] [address] Nov, [facility] [place] [facility] [address] [id number] [place] [address] Nov, [facility] [place] [facility] [address] [id number] [place] [address] Nov, [facility] [place] [facility] [address] [id number] [place] [address] Nov, [facility] [place] [facility] [address] [id number] [place] [address] Nov, [facility] [place] [facility] [address] [id number] [place] [address] Nov, [facility] [place] [facility] [address] [id number] [place] [address] 48[address] Nov, [facility] [place] [facility] [address] [id number] [place] [address] 9406 Nov, [facility] [place] [facility] [address] [id number] [place] [address] 0909 Nov, [facility] [place] [facility] [address] [id number] [place] [address] 8208 Nov, [facility] [place] [facility] [address] [id number] [place] [address] 6[address] 29 Oct, 2013 [facility] [place] [facility] [address] [id number] [place] [address]- 254 29 Oct, 2013 [facility] [place] [facility] [address] [id number] [place] [address]- 2541 15 Oct, 2013 [facility] [place] [facility] [address] [id number] [place] [address] 2546 15 Oct, 2013 [facility] [place] [facility] [address] [id number] [place] [address]- 2542 15 Oct, 2013 [facility] [place] [facility] [address] [id number] [place] [address]- 3660 15 Oct, 2013 [facility] [place] [facility] [address] [id number] [place] [address] 1489 10 Oct, 2013 [facility] [place] [facility] [address] [id number] [place] [address]- 1113 10 Oct, 2013 [facility] [place] [facility] [address] [id number] [place] [address] 1896 Oct, [facility] [place] [facility] [address] [id number] [place] [address] 8317 Oct, [facility] [place] [facility] [address] [id number] [place] [address]- 4425 Sep, [facility] [place] [facility] [address] [id number] [place] [address] 1612 Sep, [facility] [place] [facility] [address] [id number] [place] [address]- 6297 Sep, [facility] [place] [facility] [address] [id number] [place] [address]- 2976 Sep, [facility] [place] [facility] [address] [id number] [place] [address]- 8217 Sep, [facility] [place] [facility] [address] [id number] [place] [address]- 4591 Sep, [facility] [place] [facility] [address] [id number] [place] [address]- 1081 Sep, [facility] [place] [facility] [address] [id number] [place] [address]- 8371 Sep, [facility] [place] [facility] [address] [id number] [place] [address]- 3636 Sep, [facility] [place] [facility] [address] [id number] [place] [address]- 8294 Sep, [facility] [place] [facility] [address] [id number] [place] [address]- 4266 Aug, [facility] [place] [facility] [address] [id number] [place] [address]- 1584 Aug, [facility] [place] [facility] [address] [id number] [place] [address] 4103 Aug, [facility] [place] [facility] [address] [id number] [place] [address]- 1224 Aug, [facility] [place] [facility] [address] [id number] [place] [address]- 0499 Aug, [facility] [place] [facility] [address] [id number] [place] [address]- 5227 Aug, [facility] [place] [facility] [address] [id number] [place] [address]- 2106 Aug, [facility] [place] [facility] [address] [id number] [place] [address]- 9892 Aug, [facility] [place] [facility] [address] [id number] [place] [address]- 9320 Aug, [facility] [place] [facility] [address] [id number] [place] [address]- 6954 Aug, [facility] [place] [facility] [address] [id number] [place] [address]- 7536 Aug, [facility] [place] [facility] [address] [id number] [place] [address]- 3299 Aug, [facility] [place] [facility] [address] [id number] [place] [address]- 3005 Jul, [facility] [place] [facility] [address] [id number] [place] [address]- 5875 Jul, [facility] [place] [facility] [address] [id number] [place] [address]- 3907 Jul, [facility] [place] [facility] [address] [id number] [place] [address]- 8644 Jul, [facility] [place] [facility] [address] [id number] [place] [address]- 2596 Jul, [facility] [place] [facility] [address] [id number] [place] [address]- 1055 Jul, [facility] [place] [facility] [address] [id number] [place] [address]- 3499 17 Jul, 2013 [facility] [place] [facility] [address] [id number] [place] [address]- 4191 Jul, [facility] [place] [facility] [address] [id number] [place] [address]- 9386 Jul, [facility] [place] [facility] [address] [id number] [place] [address]- 3193 Jul, [facility] [place] [facility] [address] [id number] [place] [address]- 2228 Jul, [facility] [place] [facility] [address] [id number] [place] [address]- 1609 Jul, [facility] [place] [facility] [address] [id number] [place] [address]- 5039 Jul, [facility] [place] [facility] [address] [id number] [place] [address]- 6689 Jul, [facility] [place] [facility] [address] [id number] [place] [address]- 2183 Jul, [facility] [place] [facility] [address] [id number] [place] [address]- 7821 Jul, [facility] [place] [facility] [address] [id number] [place] [address]- 9063 Jul, [facility] [place] [facility] [address] [id number] [place] [address]- 7836 June, [facility] [place] [facility] [address] [id number] [place] [address]- 9594 June, [facility] [place] [facility] [address] [id number] [place] [address]- 2060 June, [facility] [place] [facility] [address] [id number] [place] [address]- 9379 June, [facility] [place] [facility] [address] [id number] [place] [address]- 1282 June, [facility] [place] [facility] [address] [id number] [place] [address]- 4449 June, [facility] [place] [facility] [address] [id number] [place] [address]- 0392 June, [facility] [place] [facility] [address] [id number] [place] [address]- 7452 June, [facility] [place] [facility] [address] [id number] [place] [address]- 1789 June, [facility] [place] [facility] [address] [id number] [place] [address]- 1686 June, [facility] [place] [facility] [address] [id number] [place] [address]- 7505 June, [facility] [place] [facility] [address] [id number] [place] [address]- 6759 June, [facility] [place] [facility] [address] [id number] [place] [address]- 8505 June, [facility] [place] [facility] [address] [id number] [place] [address]- 3601 June, [facility] [place] [facility] [address] [id number] [place] [address]- 3957 June, [facility] [place] [facility] [address] [id number] [place] [address]- 6371 June, [facility] [place] [facility] [address] [id number] [place] [address]- 4147 June, [facility] [place] [facility] [address] [id number] [place] [address]- 4955 June, [facility] [place] [facility] [address] [id number] [place] [address]- 2440 June, [facility] [place] [facility] [address] [id number] [place] [address]- 8458 June, [facility] [address] [id number] [place] [address]- 1708 June, [facility] [address] [id number] [place] [address]- 4065 June, [facility] [address] [id number] [place] [address]- 5443 June, [facility] [address] [id number] [place] [address]- 7631 June, [facility] [address] [id number] [place] [address]- 8836 June, [facility] [address] [id number] [place] [address]- 8282 June, [facility] [address] [id number] [place] [address]- 8615 June, [facility] [address] [id number] [place] [address]- 3520 June, [facility] [address] [id number] [place] [address]- 8172 June, [facility] [address] [id number] [place] [address]- 2430 June, [facility] [address] [id number] [place] [address]- 6353 June, [facility] [address] [id number] [place] [address]- 7143 June, [facility] [address] [id number] [place] [address]- 2163 May, [facility] [address] [id number] [place] [address]- 9809 May, [facility] [address] [id number] [place] [address]- 5738 May, [facility] [place] [facility] [address] [id number] [place] [address]- 7381 May, [facility] [place] [facility] [address] [id number] [place] [address]- 2621 May, [facility] [place] [facility] [address] [id number] [place] [address]- 8140 May, [facility] [place] [facility] [address] [id number] [place] [address]- 4074 May, [facility] [place] [facility] [address] [id number] [place] [address]- 3459 May, [facility] [place] [facility] [address] [id number] [place] [address]- 7884 May, [facility] [place] [facility] [address] [id number] [place] [address]- 0004 May, [facility] [place] [facility] [address] [id number] [place] [address]- 2882 May, [facility] [place] [facility] [address] [id number] [place] [address]- 0986 May, [facility] [place] [facility] [address] [id number] [place] [address]- 1404 May, [facility] [place] [facility] [address] [id number] [place] [address]- 9180 May, [facility] [place] [facility] [address] [id number] [place] [address]- 3447 May, [facility] [place] [facility] [address] [id number] [place] [address]- 1574 Apr, [facility] [place] [facility] [address] [id number] [place] [address]- 0595 Apr, [facility] [place] [facility] [address] [id number] [place] [address]- 4251 Apr, [facility] [place] [facility] [address] [id number] [place] [address]- 8970 Apr, [facility] [place] [facility] [address] [id number] [place] [address]- 5126 Apr, [facility] [place] [facility] [address] [id number] [place] [address]- 0936 Apr, [facility] [place] [facility] [address] [id number] [place] [address]- 9556 Mar, [facility] [place] [facility] [address] [id number] [place] [address]- 5242 Mar, [facility] [place] [facility] [address] [id number] [place] [address]- 0705 Mar, [facility] [place] [facility] [address] [id number] [place] [address]- 8673 Mar, [facility] [place] [facility] [address] [id number] [place] [address]- 2252 Mar, [facility] [place] [facility] [address] [id number] [place] [address]- 0044 Mar, [facility] [place] [facility] [address] [id number] [place] [address]- 7291 Mar, [facility] [place] [facility] [address] [facility] [id number] [place] [address]- 7518 Mar, [facility] [place] [facility] [address] [id number] [place] [address]- 4552 Feb, [facility] [place] [facility] [address] [id number] [place] [address]- 7848 Feb, [facility] [place] [facility] [address] [id number] [place] [address]- 7462 Feb, [facility] [place] [facility] [address] [id number] [place] [address]- 5098 Feb, [facility] [place] [facility] [address] [id number] [place] [address]- 1402 Feb, [facility] [place] [facility] [address] [id number] [place] [address]- 5494 Feb, [facility] [place] [facility] [address] [id number] [place] [address]- 1695 Feb, [facility] [place] [facility] [address] [id number] [place] [address]- 7693 Feb, [facility] [place] [facility] [address] [id number] [place] [address]- 3852 Feb, [facility] [address] [id number] [place] [address]- 5056 Feb, [facility] [place] [facility] [address] [id number] [place] [address]- 1837 Jan, [facility] [place] [facility] [address] [id number] [place] [address]- 9500 Jan, [facility] [place] [facility] [address] [id number] [place] [address]- 6030 Jan, [facility] [place] [facility] [address] [id number] [place] [address]- 7321 Jan, [facility] [place] [facility] [address] [id number] [place] [address]- 3378 Jan, [facility] [place] [facility] [address] [id number] [place] [address]- 1491 Jan, [facility] [place] [facility] [address] [id number] [place] [address]- 5932 Jan, [facility] [place] [facility] [address] [id number] [place] [address]- 1705 Jan, [facility] [place] [facility] [address] [id number] [place] [address]- 4046 Dec, [facility] [place] [facility] [address] [id number] [place] [address]- 5884 Dec, [facility] [place] [facility] [address] [id number], [place] [address]- 9417 Dec, [facility] [place] [facility] [address] [id number] [place] [address]- 0634 Dec, [facility] [place] [facility] [address] [id number] 8680 Dec, [facility] [place] [facility] [address] [id number] [place] [address]- 5902 Dec, [facility] [place] [facility] [address] [id number] [place] [address]- 4145 Dec, [facility] [place] [facility] [address] [id number] [place] [address]- 5857 Dec, [facility] [place] [facility] [address] [id number] [place] [address]- 4204 Nov, [facility] [place] [facility] [address] [id number] [place] [address]- 8355 Nov, [facility] [place] [facility] [address] [id number] [place] [address]- 7777 Nov, [facility] [place] [facility] [address] [id number], [place] [address]- 8550 Nov, [facility] [place] [facility] [address] [id number], [place] [address]- 6056 Nov, [facility] [place] [facility] [address] [id number], [place] [address]- 0872 Nov, [facility] [place] [facility] [address] [id number], [place] [address]- 8323 07 Nov, 2012 [facility] [place] [facility] [address] [id number], [place] [address]- 1491 10 Oct, 2012 [facility] [place] [facility] [address] [id number] [place] [address]- 6505 10 Oct, 2012 [facility] [place] [facility] [address] [id number] [place] [address]- 2480 05 Oct, 2012 [facility] [place] [facility] [address] [id number] [place] [address]- 1742 Sep, [facility] [address] [id number] [place] [address]- 7030 Sep, [facility] [place] [facility] [address] [id number] [place] [address]- 6396 Sep, [facility] [place] [facility] [address] [id number] [place] [address]- 4316 Sep, [facility] [place] [facility] [address] [id number] [place] [address]- 7309 Aug, [facility] [place] [facility] [address] [id number] [place] [address]- 4799 Aug, [facility] [place] [facility] [address] [id number] [place] [address]- 5543 Aug, [facility] [place] [facility] [address] [id number] [place] [address]- 0492 Aug, [facility] [address] [id number] [place] [address]- 5139 Aug, [facility] [place] [facility] [address] [id number] [place] [address]- 3676 Jul, [facility] [place] [facility] [address] [id number] [place] [address]- 7638 Jul, [facility] [place] [facility] [address] [id number] [place] [address]- 5313 Jul, [facility] [place] [facility] [address] [id number] [place] [address]- 7595 Jul, [facility] [place] [facility] [address] [id number] [place] [address]- 0817 Jul, [facility] [place] [facility] [address] [id number] [place] [address]- 0996 June, [facility] [place] [facility] [address] [id number] [place] [address]- 4778 June, [facility] [address] [id number] [place] [address]- 4365 June, [facility] [address] [id number] [place] [address]- 5487 June, [facility] [address] [id number] [place] 9509 June, [facility] [address] [id number] [place] [address]- 6200 May, [facility] [address] [id number] [place] [address]- 5880 May, [facility] [address] [id number] [place] [address]- 8451 May, [facility] [address] [id number] [place] [address]- 9388 May, [facility] [address] [id number] [place] [address]- 8053 May, [facility] [address] [id number] [place] [address]- 6209 May, [facility] [address] [id number] [place] [address]- 3624 May, [facility] [place] [facility] [address] [id number] [place] [address]- 7523 Apr, [facility] [place] [facility] [address] [id number], [place] [address]- 1577 Apr, [facility] [place] [facility] [address] [id number] [place] [address]- 3381 Apr, [facility] [place] [facility] [address] [id number] [place] [address]- 5180 Mar, [facility] [place] [facility] [address] [id number] [place] [address]- 5176 Mar, [facility] [place] [facility] [address] [id number] [place] [address]- 8508 20 Mar, 2012 [facility] [address] [id number] [place] [address]- 8746 19 Mar, 2012 [facility] [address] [id number] [place] [address] 2546 13 Mar, 2012 [facility] [address] [id number] [place] [address] 2546 13 Mar, 2012 [facility] [address] [id number] [place] [address] 2545 07 Mar, 2012 [facility] [address] [id number] [place] [address]- 0246 07 Mar, 2012 [facility] [address] [id number] [place] [address]- 6244 31 Feb, 2012 [facility] [address] [id number] [place] [address]- 1544 29 Feb, 2012 [facility] [address] [id number] [place] [address]- 8467 Feb, [facility] [address] [id number] [place] [address]- 7943 Feb, [facility] [address] [id number] [place] [address]- 1741 18 Feb, 2012 [facility] [address] [id number] [place] [address] 2547 15 Feb, 2012 [facility] [address] [id number] [place] [address] 2540 14 Feb, 2012 [facility] [place] [facility] [address] [id number] [place] [address] 2546 Jan, [facility] [place] [facility] [address] [id number] [place] [address] 2546 Jan, [facility] [address] [id number] [place] [address]- 3588 Jan, [facility] [place] [facility] [address] [id number] [place] [address]- 3991 Jan, [facility] [place] [facility] [address] [id number] [place] [address]- 4806 Jan, [facility] [place] [facility] [address] [id number] [place] [address]- 4336 Jan, [facility] [place] [facility] [address] [id number] [place] [address] Jan, [facility] [place] [facility] [address] [id number] [place] [address] Jan, [facility] [place] [facility] [address] [id number] [place] [address] Jan, [facility] [place] [facility] [address] [id number] [place] [address] Jan, [facility] [place] [facility] [address] [id number] [place] [address]268 Jan, [facility] [place] [facility] [address] [id number] [place] [address] Jan, [facility] [place] [facility] [address] [id number] [place] [address] 478[address] Jan, [facility] [place] [facility] [address] [id number] [place] [address] Jan, [facility] [place] [facility] [address] [id number] [address] Dec, [facility] [place] [facility] [address] [id number] [place] [address]- [address] Dec, [facility] [place] [facility] [address] [id number] [place] [address]- 30[address] Dec, [facility] [place] [facility] [address] [id number] [place] [address]- 48[address] Dec, [facility] [place] [facility] [address] [id number] [place] [address]- [address]605 Dec, [facility] [place] [facility] [address] [id number] [place] [address]- 47[address] Dec, [facility] [place] [facility] [address] [id number] [place] [address]- [address]396 Dec, [facility] [place] [facility] [address] [id number] [place] [address] 37[address] Dec, [facility] [place] [facility] [address] [id number] [place] [address]- 1106 Dec, [facility] [place] [facility] [address] [id number] [place] [address]- [address] Dec, [facility] [place] [facility] [address] [id number] [place] [address]- [address]278 Dec, [facility] [place] [facility] [address] [id number] [place] [address]- [address]24 Dec, [facility] [place] [facility] [address] [id number] [place] [address]- [address] Dec, [facility] [place] [facility] [address] [id number] [place] [address]- 0872 Dec, [facility] [place] [facility] [address] [id number] [place] [address]- 0045 Dec, [facility] [place] [facility] [address] [id number] [place] [address]- 7115 Dec, [facility] [place] [facility] [address] [id number] [place] [address]- 2541 Dec, [facility] [place] [facility] [address] [id number] [place] [address]- 3547 Dec, [facility] [place] [facility] [address] [id number] [place] [address]- [address]604 Dec, [facility] [place] [facility] [address] [id number] [place] [address]- 0950 Dec, [facility] [place] [facility] [address] [id number] [place] [address]- [address] 31 Nov, 2011 [facility] [place] [facility] [address] [id number] [place] [address]- [address] 31 Nov, 2011 [facility] [place] [facility] [address] [id number] [place] [address]- [address] 30 Nov, 2011 [facility] [place] [facility] [address] [id number] [place] [address]- 37[address] Nov, [facility] [place] [facility] [address] [id number] [place] [address] Nov, [facility] [place] [facility] [address] [id number] [place] [address]- [address]57 24 Nov, 2011 [facility] [place] [facility] [address] [id number] [place] [address] Nov, [facility] [place] [facility] [address] [id number] [place] [address]- [address] 15 Nov, 2011 [facility] [place] [facility] [address] [id number] [place] [address]- 47[address] Nov, [facility] [place] [facility] [address] [id number] [place] [address]- 4080 Nov, [facility] [place] [facility] [address] [id number] [place] [address] 1367 Nov, [facility] [place] [facility] [address] [id number] [place] [address]843 Nov, [facility] [place] [facility] [address] [id number] [place] [address] 477[address] Nov, [facility] [place] [facility] [address] [id number] [place] [address] 119[address] 30 Oct, 2011 [facility] [place] [facility] [address] [id number] [place] [address]- [address] 27 Oct, 2011 [facility] [place] [facility] [address] [id number] [place] [address]- [address]131 24 Oct, 2011 [facility] [place] [facility] [address] [id number] [place] [address]- [address]46 20 Oct, 2011 [facility] [place] [facility] [address] [id number] [place] [address]- 9286 Oct, [facility] [place] [facility] [address] [id number] [place] [address]- 2576 Oct, [facility] [place] [facility] [address] [id number] [place] [address]- [address] Sep, [facility] [place] [facility] [address] [id number] [place] [address]- 3119 Sep, [facility] [place] [facility] [address] [id number] [place] [address]- 34[address] Sep, [facility] [place] [facility] [address] [id number] [place] [address]- 4735 Sep, [facility] [place] [facility] [address] [id number] [place] [address] 29[address] Aug, [facility] [place] [facility] [address] [id number] [place] [address] 0219 Aug, [facility] [place] [facility] [address] [id number] [place] [address]- 2694 Aug, [facility] [place] [facility] [address] [id number] [place] [address] 59[address] Jul, [facility] [place] [facility] [address] [id number] [place] [address] Jul, [facility] [place] [facility] [address] [id number] [place] [address]- 7651 Jul, [facility] [place] [facility] [address] [id number] [place] [address]- [address] Jul, [facility] [place] [facility] [address] [id number] [place] [address] June, [facility] [place] [facility] [address] [id number] [place] [address] June, [facility] [address] [id number] [place] [address] 2982 June, [facility] [address] [id number] [place] [address] 56[address] June, [facility] [address] [id number] [place] [address]- 1332 June, [facility] [address] [id number] [place] [address]- [address] June, [facility] [address] [id number] [place] [address] May, [facility] [address] [id number] [place] [address] May, [facility] [address] [id number] [place] [address] May, [facility] [address] [id number] [place] [address] May, [facility] [address] [id number] [place] [address] May, [facility] [address] [id number] [place] [address] May, [facility] [address] [id number] [place] [address] May, [facility] [address] [id number] [place] [address] May, [facility] [place] [facility] [address] [id number] [place] [address] May, [facility] [address] [id number] [place] [address] Apr, [facility] [address] [id number] [place] [address] Mar, [facility] [address] [id number] [place] [address] 27 Mar, 2011 [facility] [place] [facility] [address] [id number] [place] [address] 21 Mar, 2011 [facility] [place] [facility] [address] [id number] [place] [address] 10 Mar, 2011 [facility] [place] [facility] [address] [id number] [place] [address] Feb, [facility] [place] [facility] [address] [id number] [place] [address] Feb, [facility] [place] [facility] [address] [id number] [place] [address] Feb, [facility] [place] [facility] [address] [id number] [place] [address] Jan, [facility] [place] [facility] [address] [id number] [place] [address] Jan, [facility] [place] [facility] [address] [id number] [place] [address] Jan, [facility] [place] [facility] [address] [id number], [place] [address] 29 Dec, 2010 [facility] [place] [facility] [address] [id number], [place] [address] Dec, [facility] [place] [facility] [address] [id number], [place] [address] 16 Dec, 2010 [facility] [place] [facility] [address] [id number] [place] [address] 15 Dec, 2010 [facility] [place] [facility] [address] [id number], [place] [address] 31 Nov, 2010 [facility] [place] [facility] [address] [id number] [place] [address] 31 Nov, 2010 [facility] [place] [facility] [address] [id number] [place] [address] 19 Nov, 2010 [facility] [place] [facility] [address] [id number] [place] [address] 18 Nov, 2010 [facility] [place] [facility] [address] [id number] [place] [address] 13 Oct, 2010 [facility] [place] [facility] [address] [id number] [place] [address] 20 Jul, 2010 [facility] [place] [facility] [address] [id number] [place] [address] Jan, [facility] [place] [facility] [address] [id number] [place] [address] 30 Dec, 2009 [facility] [place] [facility] [address] [id number] [place] [address] Dec, [facility] [place] [facility] [address] [id number] [place] [address] Dec, [facility] [place] [facility] [address] [id number] [place] [address] Dec, [facility] [place] [facility] [address] [id number] [place] [address] Dec, [facility] [place] [facility] [address] [facility] [id number] [place] [address] Dec, [facility] [place] [facility] [address] [id number] [place] [address] Nov, [facility] [place] [facility] [address] [id number] [place] [address] Nov, [facility] [place] [facility] [address] [id number] [place] [address] Nov, [facility] [place] [facility] [address] [id number] [place] [address] Apr, [facility] [place] [facility] [address] [facility] [id number] [place] [address] Apr, [facility] [place] [facility] [address] [id number] [place] [address] 29 Jan, 2009 [facility] [place] [facility] [address] [id number] [place] [address] 28 Jan, 2009 [facility] [place] [facility] [address] [id number] [place] [address] 23 Jan, 2009 [facility] [place] [facility] [address] [id number] [place] [address]46 17 Jan, 2009 [facility] [place] [facility] [address] [id number] [place] [address] 14 Jan, 2009 [facility] [place] [facility] [address] [id number] [place] [address] Jan, [facility] [place] [facility] [address] [id number] [place] [address] 30 Dec, 2008 [facility] [place] [facility] [address] [id number] [place] [address] Dec, [facility] [place] [facility] [address] [id number] [place] [address] 18 Dec, 2008 [facility] [place] [facility] [address] [id number] [place] [address] Dec, [facility] [place] [facility] [address] [facility] [id number] [place] [address] Dec, [facility] [place] [facility] [address] [id number], [place] [address] Dec, [facility] [place] [facility] [address] [id number] [place] [address] 28 Nov, 2008 [facility] [place] [facility] [address] [id number] [place] [address]46 27 Nov, 2008 [facility] [place] [facility] [address] [id number], [place] [address] 15 Aug, 2008 [facility] [place] [facility] [address] [id number], [place] [address] Jul, [facility] [place] [address] [facility] [id number] [place] [address] June, [facility] [place] [address] [facility] [id number] [place] [id number] Apr, IMMUNIZATIONS No Known Immunizations SOCIAL HISTORY [...] of loosened hardware/hip replacement ( [place] in [place]) 09/2008 Hospitalization History in pt rehab s/p left hip repair 09/2008-11/2008 Hospitalization History [facility] 07/2009
--- OUTSIDE RECORDS SUMMARY | 2017-10-26 13:42 | XMS REPORT ---
Author Author KONGBABAK [facility] Address [address] [place] [address] Care Team Providers Care Machine Whitener Name Role Phone KATHLEEN TRIANAY Unavailable PROBLEMS Type Condition ICD9-CM Code LUV21-BX Code Onset Dates Condition Status SNOMED Code Problem Generalized anxiety disorder F41.1 Active 850335303 Problem Seasonal allergic rhinitis due to other allergic trigger J30.89 Active 220112898 Problem Anxiety disorder, unspecified F41.9 Active 792084512 Problem 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 Active 193890309 Problem Meningioma D32.9 Active 802389844 Problem Generalized osteoarthritis M15.9 Active 052598567 Problem Dementia without behavioral disturbance, unspecified dementia type F03.90 Active 43606810 Problem Debility R53.81 Active 78209685 Problem At risk for falls Z91.81 Active 927072188 Problem Other chronic pain G89.29 Active 88479310 Problem Panic attacks F41.0 Active 700093842 Problem Acute drug withdrawal syndrome without complication F19.230 Active 678384931 Problem Anxiety F41.9 Active 72770176 ALLERGIES No Information ENCOUNTERS Encounter Location Date Diagnosis [facility] [id number] [address] Nov, [facility] [address], [place] [address] Aug, [facility] [id number] [address] 9466 Aug, Dementia without behavioral disturbance, unspecified dementia type F03.90 [facility] [id number] [address] 69[address] Aug, Dementia without behavioral disturbance, unspecified dementia type F03.90 and Anxiety F41.9 [place] [address] [address] Jul, Dementia without behavioral disturbance, unspecified dementia type F03.90 [facility] [id number] [place] [address] 71328- 5401 Jul, 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 ; Generalized osteoarthritis M15.9 ; Other chronic pain G89.29 ; At risk for falls Z91.81 and Debility R53.81 [facility] [id number] [place] [address] 72598- 2321 Jul, [facility] [id number] [place] [address] 77696- 2718 June, Dementia without behavioral disturbance, unspecified dementia type F03.90 [facility] [id number] [place] [address] 25595- 3960 June, [facility] [id number] [place] [address] 74988- 4722 June, [facility] [id number] [place] [address] 07156- 8047 June, [facility] [id number] [place] [address] 36477- 5111 June, Dementia without behavioral disturbance, unspecified dementia type F03.90 and Anxiety F41.9 [facility] [id number] [place] [address] 31949- 9632 May, [facility] [id number] [place] [address] 52849- 1713 May, [facility] [id number] [place] [address] 53657 -7814 May, Anxiety F41.9 ; Acute drug withdrawal syndrome without complication F19.230 and Abdominal pain, unspecified abdominal location R10.9 [facility] [address] [address] 9615 May, Panic attacks F41.0 [facility] [id number] [place] [address] 63182- 4343 May, Other chronic pain G89.29 and Generalized anxiety disorder F41.1 [place] [id number] [place] [address] 88118- 2435 Apr, Housing problems Z59.9 and Panic attacks F41.0 [facility] [id number] [place] [address] 31825- 8513 Mar, Panic attacks F41.0 [place] [id number] [place] [address] 67525- 3896 Feb, [place] [address] 08282- 8726 Feb, Panic attacks F41.0 [place] [id number] [place] [address] 94108- 1490 Feb, Pain in right knee M25.561 ; Pain in left knee M25.562 ; Other chronic pain G89.29 ; Housing problems Z59.9 ; Dementia without behavioral disturbance, unspecified dementia type F03.90 ; Generalized anxiety disorder F41.1 and Advance directive declined by patient Z78.9 [place] [id number] [place] [address] 44280- 4211 Jan, Panic attacks F41.0 [facility] [id number] [place] [address] 45801- 0768 Jan, Panic attacks F41.0 [facility] [id number] [place] [address] 74064- 3242 Dec, Panic attacks F41.0 [facility] [address] 12065 -9045 Nov, Allergic contact dermatitis due to cosmetics L23.2 [facility] [id number] [place] [address] 26973- 7651 Nov, Panic attacks F41.0 [facility] [address] [place] [address]- 9803 08 Oct, 2016 Panic attacks F41.0 [facility] [id number] [place] [address] 48590- 6312 Sep, Panic attacks F41.0 ; Insect bite, initial encounter W57.XXXA and 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 [facility] [id number] [place] [address] 06866- 9193 Sep, [facility] [address] 60053- 7908 Aug, Generalized anxiety disorder F41.1 [place] [address] 03977- 7271 Jul, [facility] [id number] [place] [address] 47469 -8026 June, Seasonal allergic rhinitis due to other allergic trigger J30.89 [place] [id number] [place] [address] 77043- 5542 June, [facility] [id number] [place] [address] 89530- 6023 June, [facility] [id number] [place] [address] 37652 -0721 June, Dysuria R30.0 and RLQ abdominal pain R10.31 [place] [id number] [place] [address] 87900- 0118 May, Generalized anxiety disorder F41.1 ; Generalized osteoarthritis M15.9 and Dementia without behavioral disturbance, unspecified dementia type F03.90 [place] [id number] [place] [address] 08807- 7440 May, [facility] [id number] [place] [address] 21568- 8828 May, [place] [id number] [place] [address] 03442- 2139 May, [facility] [address] [address]- 8054 Apr, [facility] [id number] [place] [address], [place] [address]- 7563 Apr, Generalized anxiety disorder F41.1 [facility] [address] [place] [address]- 1282 Apr, [facility] [id number] [place] [address] 04207- 4273 Apr, [facility] [address] [place] [address], [place] [address]- 3445 Apr, [facility] [address] [place] [address] 67117- 5674 Apr, Generalized anxiety disorder F41.1 [facility] [address] [place] [address] 98987- 2054 Mar, [facility] [address] [address]- 7782 Mar, [facility] [address] [address]- 8726 Mar, [facility] [id number] [address]- 0561 Mar, [facility] [address], [place] [address]- 1343 Mar, Generalized anxiety disorder F41.1 [facility] [id number], [place] [address]- 1091 Feb, Anxiety disorder, unspecified F41.9 [facility] [id number] [address]- 9008 Feb, [facility] [id number], [place] [address]- 7806 Feb, [facility] [address] [address]- 6566 Feb, [facility] [address] [place] [address] 56599 -0071 Feb, Urinary frequency R35.0 and Acute cystitis without hematuria N30.00 [facility] [id number] [place] [address] 64880- 6831 Feb, [facility] [id number] [place] [address] 50031- 6476 Jan, [facility] [id number] [place] [address] 22450- 4265 Jan, [facility] [id number] [place] [address] 85570- 1175 Dec, [facility] [id number] [place] [address] 03728- 0898 Dec, [facility] [id number] [place] [address] 53720- 7094 Dec, Edema, unspecified type R60.9 [facility] [id number] [place] [address] 45168- 1360 Dec, [facility] [id number] [place] [address] 69414- 4728 Dec, [facility] [id number] [place] [address] 45451- 3014 30 Oct, 2015 Generalized anxiety disorder F41.1 [facility] [id number] [place] [address] 14633- 5587 20 Oct, 2015 [facility] [id number] [place] [address] 91877- 9940 16 Oct, 2015 [facility] [id number] [place] [address] 09939- 2887 15 Oct, 2015 [facility] [address] [place] [address] 65692- 1728 06 Oct, 2015 [facility] [address] [address]- 1586 Aug, Anxiety disorder, unspecified F41.9 [facility] [address] [address]- 5673 Jul, Anxiety disorder, unspecified F41.9 [facility] [address] [place] [address]- 5147 Jul, Generalized anxiety disorder F41.1 [facility] [address] [address]- 8121 Jul, [facility] [address] [place] [address] 84812- 8191 June, [facility] [id number] [place] [address] 68109- 2222 June, [facility] [id number] [place] [address] 60873- 0296 June, [facility] [address] [address]- 5074 June, [facility] [address] [place] [address] 36560- 7796 May, [facility] [address], [place] [address]66 May, Dementia without behavioral disturbance, unspecified dementia type F03.90 and Generalized osteoarthritis M15.9 [facility] [address] [address]- 5604 May, Generalized osteoarthritis M15.9 and 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 [facility] [address] [address]- 3387 Apr, [facility] [address] [address]- 7033 Apr, [facility] [address] [address]- 3172 Apr, [place] [id number] [place] [address] 93310- 1262 Mar, [facility] [address] 99780- 1305 Mar, [place] [address] 34651- 9446 Mar, Generalized anxiety disorder F41.1 [place] [address] 90229- 2602 Feb, Other infective acute otitis externa of right ear H60.[address] 86733- 1300 Dec, Dysuria R30.0 ; Generalized osteoarthritis M15.9 and Gastroesophageal reflux disease, esophagitis presence not specified K21.[address] 36944- 2499 Dec, [place] [address] 45664- 2038 Dec, Generalized anxiety disorder F41.1 ; Encounter for immunization Z23 and Dementia F03.90 [place] [id number] [place] [address] 84652- 1773 Nov, [place] [id number] [place] [address] 52229- 7683 Oct, [place] [address] 90528- 8704 24 Oct, 2014 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 ; Chronic pain 338.29 ; Anxiety 300.00 and Dementia 294.[address] 19035- 5838 Oct, [place] [id number] [place] [address] 82688- 3471 Aug, Generalized anxiety disorder 300.02 and Dementia 294.20 [place] [address] [address]- 3626 Aug, [facility] [address], [place] [address]- 0598 Aug, Anxiety 300.00 and Chronic pain 338.29 [facility] [address] [address]- 8434 Jul, [facility] [id number] [place] [address] 09335- 1066 Jul, [facility] [address] [address]- 9803 June, [facility] [id number] [place] [address] 52884- 5016 June, Anxiety, generalized 300.02 ; Dementia 294.20 and No condition on Mutual II V71.09 [facility] [id number], [place] [address]- 9815 May, [facility] [address] [address]- 2935 May, [facility] [address] [address]- 9496 Apr, [facility] [address] [address]- 4493 Apr, [facility] [address], [place] [address]- 4486 Apr, [facility] [address] [address]- 4417 Apr, [facility] [address], [place] [address]- 3083 Apr, [facility] [id number] [address]- 2546 Apr, [facility] [address] 8570 Apr, [facility] [place] [facility] [address] [id number] [place] [address]- 1417 Apr, [facility] [place] [facility] [address] [id number] [place] [address]- 8426 Apr, [facility] [place] [facility] [address] [id number] [place] [address]- 6514 Apr, [facility] [place] [facility] [address] [id number] [place] [address]- 0068 Apr, [facility] [place] [facility] [address] [id number] [place] [address]- 7240 Apr, [facility] [place] [facility] [address] [id number] [place] [address]- 5514 Apr, [facility] [place] [facility] [address] [id number] [place] [address]- 7285 Apr, [facility] [place] [facility] [address] [id number] [place] [address]- 9682 Apr, [facility] [place] [facility] [address] [id number] [place] [address]- 1234 Apr, [facility] [place] [facility] [address] [id number] [place] [address]- 4416 Mar, 2014 [facility] [place] [facility] [address] [id number] [address]- 7362 Mar, 2014 [facility] [place] [facility] [address] [id number], [place] [address]- 4895 Mar, 2014 [facility] [place] [facility] [address] [id number] [place] [address]- 3875 Mar, 2014 [facility] [place] [facility] [address] [id number] [place] [address]- 8241 Mar, 2014 [facility] [place] [facility] [address] [id number] [place] [address]- 2499 Mar, 2014 [facility] [place] [facility] [address] [id number] [place] [address]- 0597 23 Mar, 2014 [facility] [place] [facility] [address] [id number] [place] [address]- 3126 23 Mar, 2014 [facility] [place] [facility] [address] [id number] [place] [address]- 2546 20 Mar, 2014 [facility] [place] [facility] [address] [id number] [place] [address]- 4628 20 Mar, 2014 [facility] [place] [facility] [address] [id number] [place] [address]- 254 18 Mar, 2014 [facility] [place] [facility] [address] [id number] [place] [address]- 6846 18 Mar, 2014 [facility] [place] [facility] [address] [facility] [id number] [place] [address]- 8793 17 Mar, 2014 [facility] [place] [facility] [address] [facility] [id number] [place] [address]- 3469 17 Mar, 2014 [facility] [place] [facility] [address] [facility] [id number] [place] [address]- 8817 17 Mar, 2014 [facility] [place] [facility] [address] [facility] [id number] [place] [address]- 3645 17 Mar, 2014 [facility] [place] [facility] [address] [facility] [id number] [place] [address]- 8174 13 Mar, 2014 [facility] [place] [facility] [address] [facility] [id number], [place] [address]- 3411 13 Mar, 2014 [facility] [place] [facility] [address] [facility] [id number] [place] [address]- 254 13 Mar, 2014 [facility] [place] [facility] [address] [facility] [id number] [place] [address]- 3838 13 Mar, 2014 [facility] [place] [facility] [address] [facility] [id number] [place] [address]- 8583 12 Mar, 2014 [facility] [place] [facility] [address] [facility] [id number] [place] [address]- 5969 12 Mar, 2014 [facility] [place] [facility] [address] [id number] [place] [address]- 6366 Mar, 2014 [facility] [place] [facility] [address] [id number] [place] [address]- 2546 Mar, 2014 [facility] [place] [facility] [address] [id number] [place] [address]- 5506 Mar, [facility] [place] [facility] [address] [id number] [place] [address]- 2547 Mar, [facility] [place] [facility] [address] [id number] [place] [address]- 3163 Feb, [facility] [place] [facility] [address] [id number] [place] [address]- 2334 Feb, [facility] [place] [facility] [address] [id number] [place] [address]- 0356 Feb, [facility] [place] [facility] [address] [id number] [place] [address]- 3733 Feb, [facility] [place] [facility] [address] [id number] [place] [address]- 3511 Feb, [facility] [place] [facility] [address] [facility] [id number] [place] [address]- 4035 Feb, [facility] [place] [facility] [address] [id number] [place] [address]- 2544 Feb, [facility] [place] [facility] [address] [id number] [place] [address]- 2540 Feb, [facility] [place] [facility] [address] [id number] [place] [address]- 1472 Feb, [facility] [place] [facility] [address] [id number] [place] [address]- 5536 Feb, [facility] [place] [facility] [address] [id number] [place] [address]- 6716 Feb, [facility] [place] [facility] [address] [id number] [place] [address]- 4576 Feb, [facility] [place] [facility] [address] [id number] [place] [address]- 0038 Feb, [facility] [place] [facility] [address] [id number] [place] [address]- 2837 Feb, [facility] [place] [facility] [address] [id number] [place] [address]- 1159 Feb, [facility] [place] [facility] [address] [id number] [place] [address] Jan, [facility] [place] [facility] [address] [id number] [place] [address] Jan, [facility] [place] [facility] [address] [id number] [place] [address] Jan, [facility] [place] [facility] [address] [id number] [place] [address] Jan, [facility] [place] [facility] [address] [id number] [place] [address] Jan, [facility] [place] [facility] [address] [id number] [place] [address] Jan, [facility] [place] [facility] [address] [id number] [place] [address] Jan, [facility] [place] [facility] [address] [id number] [place] [address] Jan, [facility] [place] [facility] [address] [id number] [place] [address] Jan, [facility] [place] [facility] [address] [id number] [place] [address] Jan, [facility] [place] [facility] [address] [id number] [place] [address] Jan, [facility] [place] [facility] [address] [id number], [place] [address] Jan, [facility] [place] [facility] [address] [id number] [place] [address] Jan, [facility] [place] [facility] [address] [facility] [id number] [place] [address] Jan, [facility] [place] [facility] [address] [id number] [place] [address] Jan, [facility] [place] [facility] [address] [id number] [place] [address] Jan, [facility] [place] [facility] [address] [id number] [place] [id number] Jan, [facility] [place] [facility] [address] [id number] [place] [address] Jan, [facility] [place] [facility] [id number] [address] Jan, [facility] [place] [facility] [address] [id number] [place] [address] Jan, [facility] [place] [facility] [address] [id number] [place] [address] Dec, [facility] [place] [facility] [address] [id number] [place] [address] Dec, [facility] [place] [facility] [address] [id number] [place] [address] Dec, [facility] [place] [facility] [address] [id number], [place] [address] Dec, [facility] [place] [facility] [address] [id number] [place] [address] Dec, [facility] [place] [facility] [address] [id number] [place] [address] Dec, [facility] [place] [facility] [address] [facility] [id number] [place] [address] Dec, [facility] [place] [facility] [address] [id number] [place] [address] Nov, [facility] [place] [facility] [address] [id number] [place] [address] Nov, [facility] [place] [facility] [address] [id number] [place] [address] Nov, [facility] [place] [facility] [address] [id number] [place] [address] Nov, [facility] [place] [facility] [address] [id number] [place] [address] Nov, [facility] [place] [facility] [address] [id number] [place] [address] Nov, [facility] [place] [facility] [address] [id number] [place] [address] Nov, [facility] [place] [facility] [address] [id number] [place] [address] Nov, [facility] [place] [facility] [address] [id number] [place] [address] Nov, [facility] [place] [facility] [address] [id number] [place] [address] Nov, [facility] [place] [facility] [address] [id number] [place] [address] 29 Oct, 2013 [facility] [place] [facility] [address] [id number] [place] [address]- [address] 29 Oct, 2013 [facility] [place] [facility] [address] [id number] [place] [address] 15 Oct, 2013 [facility] [place] [facility] [address] [id number] [place] [address] 15 Oct, 2013 [facility] [place] [facility] [address] [id number] [place] [address] 15 Oct, 2013 [facility] [place] [facility] [address] [id number] [place] [address] 15 Oct, 2013 [facility] [place] [facility] [address] [id number] [place] [address] 10 Oct, 2013 [facility] [place] [facility] [address] [id number] [place] [address] 10 Oct, 2013 [facility] [place] [facility] [address] [id number] [place] [address] Oct, [facility] [place] [facility] [address] [id number] [place] [address] Oct, [facility] [place] [facility] [address] [id number] [place] [address]- 5231 Sep, [facility] [place] [facility] [address] [id number] [place] [address] 1177 Sep, [facility] [place] [facility] [address] [id number] [place] [address] Sep, [facility] [place] [facility] [address] [id number] [place] [address] 1458 Sep, [facility] [place] [facility] [address] [id number] [place] [address] 7336 Sep, [facility] [place] [facility] [address] [id number] [place] [address]- 0009 Sep, [facility] [place] [facility] [address] [id number] [place] [address]- 8017 Sep, [facility] [place] [facility] [address] [id number] [place] [address]- 8389 Sep, [facility] [place] [facility] [address] [id number] [place] [address]- 1819 Sep, [facility] [place] [facility] [address] [id number] [place] [address]- 5728 Sep, [facility] [place] [facility] [address] [id number] [place] [address]- 5204 Aug, [facility] [place] [facility] [address] [id number] [place] [address]- 5132 Aug, [facility] [place] [facility] [address] [id number] [place] [address]- 0868 Aug, [facility] [place] [facility] [address] [id number] [place] [address]- 3239 Aug, [facility] [place] [facility] [address] [id number] [place] [address]- 2111 Aug, [facility] [place] [facility] [address] [id number] [place] [address]- 6464 Aug, [facility] [place] [facility] [address] [id number] [place] [address]- 6756 Aug, [facility] [place] [facility] [address] [id number] [place] [address]- 2710 Aug, [facility] [place] [facility] [address] [id number] [place] [address]- 6012 Aug, [facility] [place] [facility] [address] [id number] [place] [address]- 3013 Aug, [facility] [place] [facility] [address] [id number] [place] [address]- 5903 Aug, [facility] [place] [facility] [address] [id number] [place] [address]- 9662 Aug, [facility] [place] [facility] [address] [id number] [place] [address]- 4002 Jul, [facility] [place] [facility] [address] [id number] [place] [address]- 5727 Jul, [facility] [place] [facility] [address] [id number] [place] [address]- 1701 Jul, [facility] [place] [facility] [address] [id number] [place] [address]- 9261 Jul, [facility] [place] [facility] [address] [id number] [place] [address]- 7428 Jul, [facility] [place] [facility] [address] [id number] [place] [address]- 7167 Jul, [facility] [place] [facility] [address] [id number] [place] [address]- 9434 17 Jul, 2013 [facility] [place] [facility] [address] [id number] [place] [address]- 0870 Jul, [facility] [place] [facility] [address] [id number] [place] [address]- 4977 Jul, [facility] [place] [facility] [address] [id number] [place] [address]- 1408 Jul, [facility] [place] [facility] [address] [id number] [place] [address]- 1971 Jul, [facility] [place] [facility] [address] [id number] [place] [address]- 0871 Jul, [facility] [place] [facility] [address] [id number] [place] [address]- 1093 Jul, [facility] [place] [facility] [address] [id number] [place] [address]- 7529 Jul, [facility] [place] [facility] [address] [id number] [place] [address]- 0228 Jul, [facility] [place] [facility] [address] [id number] [place] [address]- 5481 Jul, [facility] [place] [facility] [address] [id number] [place] [address]- 1066 Jul, [facility] [place] [facility] [address] [id number] [place] [address]- 7783 June, [facility] [place] [facility] [address] [id number] [place] [address]- 8697 June, [facility] [place] [facility] [address] [id number] [place] [address]- 2763 June, [facility] [place] [facility] [address] [id number] [place] [address]- 1029 June, [facility] [place] [facility] [address] [id number] [place] [address]- 4642 June, [facility] [place] [facility] [address] [id number] [place] [address]- 6632 June, [facility] [place] [facility] [address] [id number] [place] [address]- 7918 June, [facility] [place] [facility] [address] [id number] [place] [address]- 9132 June, [facility] [place] [facility] [address] [id number] [place] [address]- 8041 June, [facility] [place] [facility] [address] [id number] [place] [address]- 9658 June, [facility] [place] [facility] [address] [id number] [place] [address]- 7575 June, [facility] [place] [facility] [address] [id number] [place] [address]- 0245 June, [facility] [place] [facility] [address] [id number] [place] [address]- 2821 June, [facility] [place] [facility] [address] [id number] [place] [address]- 3525 June, [facility] [place] [facility] [address] [id number] [place] [address]- 3594 June, [facility] [place] [facility] [address] [id number] [place] [address]- 9140 June, [facility] [place] [facility] [address] [id number] [place] [address]- 6426 June, [facility] [place] [facility] [address] [id number] [place] [address]- 6777 June, [facility] [place] [facility] [address] [id number] [place] [address]- 5671 June, [facility] [place] [facility] [address] [id number] [place] [address]- 8384 June, [facility] [address] [id number] [place] [address]- 7579 June, [facility] [address] [id number] [place] [address]- 4047 June, [facility] [address] [id number] [place] [address]- 5861 June, [facility] [address] [id number] [place] [address]- 0283 June, [facility] [address] [id number] [place] [address]- 1421 June, [facility] [address] [id number] [place] [address]- 0548 June, [facility] [address] [id number] [place] [address]- 9731 June, [facility] [address] [id number] [place] [address]- 1073 June, [facility] [address] [id number] [place] [address]- 2794 June, [facility] [address] [id number] [place] [address]- 0927 June, [facility] [address] [id number] [place] [address]- 1126 June, [facility] [address] [id number] [place] [address]- 1458 June, [facility] [address] [id number] [place] [address]- 3658 May, [facility] [address] [id number] [place] [address]- 9475 May, [facility] [address] [id number] [place] [address]- 2438 May, [facility] [place] [facility] [address] [id number] [place] [address]- 4371 May, [facility] [place] [facility] [address] [id number] [place] [address]- 6980 May, [facility] [place] [facility] [address] [id number] [place] [address]- 0019 May, [facility] [place] [facility] [address] [id number] [place] [address]- 0981 May, [facility] [place] [facility] [address] [id number] [place] [address]- 9281 May, [facility] [place] [facility] [address] [id number] [place] [address]- 4447 May, [facility] [place] [facility] [address] [id number] [place] [address]- 2139 May, [facility] [place] [facility] [address] [id number] [place] [address]- 4510 May, [facility] [place] [facility] [address] [id number] [place] [address]- 6787 May, [facility] [place] [facility] [address] [id number] [place] [address]- 5726 May, [facility] [place] [facility] [address] [id number] [place] [address]- 3184 May, [facility] [place] [facility] [address] [id number] [place] [address]- 0155 May, [facility] [place] [facility] [address] [id number] [place] [address]- 0413 Apr, [facility] [place] [facility] [address] [id number] [place] [address]- 2966 Apr, [facility] [place] [facility] [address] [id number] [place] [address]- 1546 Apr, [facility] [place] [facility] [address] [id number] [place] [address]- 5613 Apr, [facility] [place] [facility] [address] [id number] [place] [address]- 4656 Apr, [facility] [place] [facility] [address] [id number] [place] [address]- 5626 Apr, [facility] [place] [facility] [address] [id number] [place] [address]- 0706 Mar, [facility] [place] [facility] [address] [id number] [place] [address]- 2732 Mar, [facility] [place] [facility] [address] [id number] [place] [address]- 6140 Mar, [facility] [place] [facility] [address] [id number] [place] [address]- 2984 Mar, [facility] [place] [facility] [address] [id number] [place] [address]- 1551 Mar, [facility] [place] [facility] [address] [id number] [place] [address]- 2420 Mar, [facility] [place] [facility] [address] [id number] [place] [address]- 5625 Mar, [facility] [place] [facility] [address] [facility] [id number] [place] [address]- 0059 Mar, [facility] [place] [facility] [address] [id number] [place] [address]- 8678 Feb, [facility] [place] [facility] [address] [id number] [place] [address]- 0043 Feb, [facility] [place] [facility] [address] [id number] [place] [address]- 3399 Feb, [facility] [place] [facility] [address] [id number] [place] [address]- 1018 Feb, [facility] [place] [facility] [address] [id number] [place] [address]- 5686 Feb, [facility] [place] [facility] [address] [id number] [place] [address]- 8637 Feb, [facility] [place] [facility] [address] [id number] [place] [address]- 1516 Feb, [facility] [place] [facility] [address] [id number] [place] [address]- 4141 Feb, [facility] [place] [facility] [address] [id number] [place] [address]- 3749 Feb, [facility] [address] [id number] [place] [address]- 2438 Feb, [facility] [place] [facility] [address] [id number] [place] [address]- 4397 Jan, [facility] [place] [facility] [address] [id number] [place] [address]- 6549 Jan, [facility] [place] [facility] [address] [id number] [place] [address]- 3350 Jan, [facility] [place] [facility] [address] [id number] [place] [address]- 0393 Jan, [facility] [place] [facility] [address] [id number] [place] [address]- 0367 Jan, [facility] [place] [facility] [address] [id number] [place] [address]- 8616 Jan, [facility] [place] [facility] [address] [id number] [place] [address]- 5658 Jan, [facility] [place] [facility] [address] [id number] [place] [address]- 8886 Jan, [facility] [place] [facility] [address] [id number] [place] [address]- 0235 Dec, [facility] [place] [facility] [address] [id number] [place] [address]- 4464 Dec, [facility] [place] [facility] [address] [id number] [address]- 0276 Dec, [facility] [place] [facility] [address] [id number] [place] [address]- 3815 Dec, [facility] [place] [facility] [address] [id number] 7142 Dec, [facility] [place] [facility] [address] [id number] [place] [address]- 0318 Dec, [facility] [place] [facility] [address] [id number] [place] [address]- 1974 Dec, [facility] [place] [facility] [address] [id number] [place] [address]- 4224 Dec, [facility] [place] [facility] [address] [id number] [place] [address]- 9324 Nov, [facility] [place] [facility] [address] [id number] [place] [address]- 8194 Nov, [facility] [place] [facility] [address] [id number] [place] [address]- 0392 Nov, [facility] [place] [facility] [address] [id number], [place] [address]- 0940 Nov, [facility] [place] [facility] [address] [id number], [place] [address]- 7607 Nov, [facility] [place] [facility] [address] [id number], [place] [address]- 3119 Nov, [facility] [place] [facility] [address] [id number], [place] [address]- 0705 07 Nov, 2012 [facility] [place] [facility] [address] [id number], [place] [address]- 0747 10 Oct, 2012 [facility] [place] [facility] [address] [id number] [place] [address]- 4552 10 Oct, 2012 [facility] [place] [facility] [address] [id number] [place] [address]- 9246 05 Oct, 2012 [facility] [place] [facility] [address] [id number] [place] [address]- 9522 Sep, [facility] [address] [id number] [place] [address]- 0157 Sep, [facility] [place] [facility] [address] [id number] [place] [address]- 0406 Sep, [facility] [place] [facility] [address] [id number] [place] [address]- 6706 Sep, [facility] [place] [facility] [address] [id number] [place] [address]- 6117 Aug, [facility] [place] [facility] [address] [id number] [place] [address]- 5352 Aug, [facility] [place] [facility] [address] [id number] [place] [address]- 9312 Aug, [facility] [place] [facility] [address] [id number] [place] [address]- 2054 Aug, [facility] [address] [id number] [place] [address]- 8458 Aug, [facility] [place] [facility] [address] [id number] [place] [address]- 8744 Jul, [facility] [place] [facility] [address] [id number] [place] [address]- 2983 Jul, [facility] [place] [facility] [address] [id number] [place] [address]- 1755 Jul, [facility] [place] [facility] [address] [id number] [place] [address]- 6564 Jul, [facility] [place] [facility] [address] [id number] [place] [address]- 8442 Jul, [facility] [place] [facility] [address] [id number] [place] [address]- 5886 June, [facility] [place] [facility] [address] [id number] [place] [address]- 3843 June, [facility] [address] [id number] [place] [address]- 1249 June, [facility] [address] [id number] [place] [address]- 5435 June, [facility] [address] [id number] [place] June, [facility] [address] [id number] [place] [address]- 1466 May, [facility] [address] [id number] [place] [address]- 8540 May, [facility] [address] [id number] [place] [address]- 7106 May, [facility] [address] [id number] [place] [address]- 5610 May, [facility] [address] [id number] [place] [address]- 3336 May, [facility] [address] [id number] [place] [address]- 9180 May, [facility] [address] [id number] [place] [address]- 4791 May, [facility] [place] [facility] [address] [id number] [place] [address]- 2622 Apr, [facility] [place] [facility] [address] [id number], [place] [address]- 5636 Apr, [facility] [place] [facility] [address] [id number] [place] [address]- 9596 Apr, [facility] [place] [facility] [address] [id number] [place] [address]- 8823 Mar, [facility] [place] [facility] [address] [id number] [place] [address]- 0406 Mar, [facility] [place] [facility] [address] [id number] [place] [address]- 5350 20 Mar, 2012 [facility] [address] [id number] [place] [address]- 7146 19 Mar, 2012 [facility] [address] [id number] [place] [address] 2546 13 Mar, 2012 [facility] [address] [id number] [place] [address] 2546 13 Mar, 2012 [facility] [address] [id number] [place] [address] 2544 07 Mar, 2012 [facility] [address] [id number] [place] [address]- 4676 07 Mar, 2012 [facility] [address] [id number] [place] [address]- 3930 31 Feb, 2012 [facility] [address] [id number] [place] [address]- 0110 29 Feb, 2012 [facility] [address] [id number] [place] [address]- 8646 Feb, [facility] [address] [id number] [place] [address]- 6480 Feb, [facility] [address] [id number] [place] [address]- 4869 18 Feb, 2012 [facility] [address] [id number] [place] [address] 2549 15 Feb, 2012 [facility] [address] [id number] [place] [address] 2545 14 Feb, 2012 [facility] [place] [facility] [address] [id number] [place] [address] 2546 Jan, [facility] [place] [facility] [address] [id number] [place] [address] 2546 Jan, [facility] [address] [id number] [place] [address]- 4301 Jan, [facility] [place] [facility] [address] [id number] [place] [address]- 4970 Jan, [facility] [place] [facility] [address] [id number] [place] [address]- 1956 Jan, [facility] [place] [facility] [address] [id number] [place] [address]- 4417 Jan, [facility] [place] [facility] [address] [id number] [place] [address]- 7375 Jan, [facility] [place] [facility] [address] [id number] [place] [address]- 5134 Jan, [facility] [place] [facility] [address] [id number] [place] [address]- 4636 Jan, [facility] [place] [facility] [address] [id number] [place] [address]- 3926 Jan, [facility] [place] [facility] [address] [id number] [place] [address]- 7395 Jan, [facility] [place] [facility] [address] [id number] [place] [address]- 3855 Jan, [facility] [place] [facility] [address] [id number] [place] [address]- 5244 Jan, [facility] [place] [facility] [address] [id number] [place] [address]- 7876 Jan, [facility] [place] [facility] [address] [id number], [place] [address]- 3347 Dec, [facility] [place] [facility] [address] [id number] [place] [address]- 8880 Dec, [facility] [place] [facility] [address] [id number] [place] [address]- 1078 Dec, [facility] [place] [facility] [address] [id number] [place] [address]- 2198 Dec, [facility] [place] [facility] [address] [id number] [place] [address]- 5294 Dec, [facility] [place] [facility] [address] [id number] [place] [address]- 9742 Dec, [facility] [place] [facility] [address] [id number] [place] [address]- 9316 Dec, [facility] [place] [facility] [address] [id number] [place] [address]- 7521 Dec, [facility] [place] [facility] [address] [id number] [place] [address] Dec, [facility] [place] [facility] [address] [id number] [place] [address] Dec, [facility] [place] [facility] [address] [id number] [place] [address] Dec, [facility] [place] [facility] [address] [id number] [place] [address] Dec, [facility] [place] [facility] [address] [id number] [place] [address] Dec, [facility] [place] [facility] [address] [id number] [place] [address] Dec, [facility] [place] [facility] [address] [id number] [place] [address] Dec, [facility] [place] [facility] [address] [id number] [place] [address]69 Dec, [facility] [place] [facility] [address] [id number] [place] [address] Dec, [facility] [place] [facility] [address] [id number] [place] [address] Dec, [facility] [place] [facility] [address] [id number] [place] [address]- [address] Dec, [facility] [place] [facility] [address] [id number] [place] [address] Dec, [facility] [place] [facility] [address] [id number] [place] [address] 31 Nov, 2011 [facility] [place] [facility] [address] [id number] [place] [address] 31 Nov, 2011 [facility] [place] [facility] [address] [id number] [place] [address]- [address] 30 Nov, 2011 [facility] [place] [facility] [address] [id number] [place] [address] Nov, [facility] [place] [facility] [address] [id number] [place] [address] Nov, [facility] [place] [facility] [address] [id number] [place] [address]- [address] 24 Nov, 2011 [facility] [place] [facility] [address] [id number] [place] [address] 8066 Nov, [facility] [place] [facility] [address] [id number] [place] [address] 15 Nov, 2011 [facility] [place] [facility] [address] [id number] [place] [address] Nov, [facility] [place] [facility] [address] [id number] [place] [address]61 Nov, [facility] [place] [facility] [address] [id number] [place] [address] 136[address] Nov, [facility] [place] [facility] [address] [id number] [place] [address] 29[address] Nov, [facility] [place] [facility] [address] [id number] [place] [address] 46[address] Nov, [facility] [place] [facility] [address] [id number] [place] [address] 1326 30 Oct, 2011 [facility] [place] [facility] [address] [id number] [place] [address] 27 Oct, 2011 [facility] [place] [facility] [address] [id number] [place] [address]- 8865 24 Oct, 2011 [facility] [place] [facility] [address] [id number] [place] [address]284 20 Oct, 2011 [facility] [place] [facility] [address] [id number] [place] [address]136 Oct, [facility] [place] [facility] [address] [id number] [place] [address] Oct, [facility] [place] [facility] [address] [id number] [place] [address] Sep, [facility] [place] [facility] [address] [id number] [place] [address] Sep, [facility] [place] [facility] [address] [id number] [place] [address]183 Sep, [facility] [place] [facility] [address] [id number] [place] [address] 94[address] Sep, [facility] [place] [facility] [address] [id number] [place] [address] Aug, [facility] [place] [facility] [address] [id number] [place] [address] Aug, [facility] [place] [facility] [address] [id number] [place] [address] 65[address] Aug, [facility] [place] [facility] [address] [id number] [place] [address] Jul, [facility] [place] [facility] [address] [id number] [place] [address] Jul, [facility] [place] [facility] [address] [id number] [place] [address] Jul, [facility] [place] [facility] [address] [id number] [place] [address] Jul, [facility] [place] [facility] [address] [id number] [place] [address] 8979 June, [facility] [place] [facility] [address] [id number] [place] [address] June, [facility] [address] [id number] [place] [address] June, [facility] [address] [id number] [place] [address] June, [facility] [address] [id number] [place] [address]394 June, [facility] [address] [id number] [place] [address] June, [facility] [address] [id number] [place] [address] May, [facility] [address] [id number] [place] [address] May, [facility] [address] [id number] [place] [address]- 4469 May, [facility] [address] [id number] [place] [address] May, [facility] [address] [id number] [place] [address] 3658 May, [facility] [address] [id number] [place] [address] 6408 May, [facility] [address] [id number] [place] [address] 4087 May, [facility] [address] [id number] [place] [address]- 1106 May, [facility] [place] [facility] [address] [id number] [place] [address] 0714 May, [facility] [address] [id number] [place] [address]- 5214 Apr, [facility] [address] [id number] [place] [address] 78[address] Mar, [facility] [address] [id number] [place] [address] 27 Mar, 2011 [facility] [place] [facility] [address] [id number] [place] [address]80 21 Mar, 2011 [facility] [place] [facility] [address] [id number] [place] [address]- 7[address] 10 Mar, 2011 [facility] [place] [facility] [address] [id number] [place] [address]- 4465 Feb, [facility] [place] [facility] [address] [id number] [place] [address]- [address]78 Feb, [facility] [place] [facility] [address] [id number] [place] [address]- 750[address] Feb, [facility] [place] [facility] [address] [id number] [place] [place] [address] Jan, [facility] [place] [facility] [address] [id number] [place] [address] Jan, [facility] [place] [facility] [address] [id number] [place] [address] Jan, [facility] [place] [facility] [address] [id number], [place] [address] 29 Dec, 2010 [facility] [place] [facility] [address] [id number], [place] [address] Dec, [facility] [place] [facility] [address] [id number], [place] [address] 16 Dec, 2010 [facility] [place] [facility] [address] [id number] [place] [address] 15 Dec, 2010 [facility] [place] [facility] [address] [id number], [place] [address] 31 Nov, 2010 [facility] [place] [facility] [address] [id number] [place] [address] 31 Nov, 2010 [facility] [place] [facility] [address] [id number] [place] [address] 19 Nov, 2010 [facility] [place] [facility] [address] [id number] [place] [address] 18 Nov, 2010 [facility] [place] [facility] [address] [id number] [place] [address] 13 Oct, 2010 [facility] [place] [facility] [address] [id number] [place] [address] 20 Jul, 2010 [facility] [place] [facility] [address] [id number] [place] [address] Jan, [facility] [place] [facility] [address] [id number] [place] [address] 30 Dec, 2009 [facility] [place] [facility] [address] [id number] [place] [address] Dec, [facility] [place] [facility] [address] [id number] [place] [address] Dec, [facility] [place] [facility] [address] [id number] [place] [address]- [address] Dec, [facility] [place] [facility] [address] [id number] [place] [address] Dec, [facility] [place] [facility] [address] [facility] [id number] [place] [address] Dec, [facility] [place] [facility] [address] [id number] [place] [address] Nov, [facility] [place] [facility] [address] [id number] [place] [address]- [address] Nov, [facility] [place] [facility] [address] [id number] [place] [address]- [address] Nov, [facility] [place] [facility] [address] [id number] [place] [address]- [address] Apr, [facility] [place] [facility] [address] [facility] [id number] [place] [address] Apr, [facility] [place] [facility] [address] [id number] [place] [address] 29 Jan, 2009 [facility] [place] [facility] [address] [id number] [place] [address] 28 Jan, 2009 [facility] [place] [facility] [address] [id number] [place] [address] 23 Jan, 2009 [facility] [place] [facility] [address] [id number] [place] [address] 17 Jan, 2009 [facility] [place] [facility] [address] [id number] [place] [address] 14 Jan, 2009 [facility] [place] [facility] [address] [id number] [place] [address] Jan, [facility] [place] [facility] [address] [id number] [place] [address] 30 Dec, 2008 [facility] [place] [facility] [address] [id number] [place] [address] Dec, [facility] [place] [facility] [address] [id number] [place] [address] 18 Dec, 2008 [facility] [place] [facility] [address] [id number] [place] [address] Dec, [facility] [place] [facility] [address] [facility] [id number] [place] [address] Dec, [facility] [place] [facility] [address] [id number], [place] [address] Dec, [facility] [place] [facility] [address] [id number] [place] [address] 28 Nov, 2008 [facility] [place] [facility] [address] [id number] [place] [address] 2546 27 Nov, 2008 [facility] [place] [facility] [address] [id number], [place] [address] 15 Aug, 2008 [facility] [place] [facility] [address] [id number], [place] [address] Jul, [facility] [address] [facility] [id number] [place] [address] June, [facility] [address] [facility] [id number] [place] [address] Apr, IMMUNIZATIONS No Known Immunizations SOCIAL HISTORY Never Assessed REASON FOR VISIT Controlled Medication Concerns PLAN OF CARE VITAL SIGNS MEDICATIONS Medication Instructions Dosage Frequency Start Date End Date Duration Status Clonazepam 0.5 MG Orally 3 times a day ( take at breakfast, 3pm, & HS 1 tablet 28 days Active RESULTS No Results PROCEDURES No [...] of loosened hardware/hip replacement ( [facility] in [place]) 09/2008 Hospitalization History in pt rehab s/p left hip repair 09/2008-11/2008 Hospitalization History [facility] 07/2009
--- OUTSIDE RECORDS SUMMARY | 2017-10-26 13:43 | XMS REPORT ---
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 Name Role Phone MAYRA SALAZAR Unavailable PROBLEMS Type Condition ICD9-CM Code SHR77-MI Code Onset Dates Condition Status SNOMED Code Problem Generalized anxiety disorder F41.1 Active 222369208 Problem Seasonal allergic rhinitis due to other allergic trigger J30.89 Active 206044832 Problem Anxiety disorder, unspecified F41.9 Active 149264265 Problem 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 Active 970465668 Problem Meningioma D32.9 Active 913528328 Problem Generalized osteoarthritis M15.9 Active 803250084 Problem Dementia without behavioral disturbance, unspecified dementia type F03.90 Active 06630336 Problem Debility R53.81 Active 85386278 Problem At risk for falls Z91.81 Active 561183520 Problem Other chronic pain G89.29 Active 66191285 Problem Panic attacks F41.0 Active 181969223 Problem Acute drug withdrawal syndrome without complication F19.230 Active 251215846 Problem Anxiety F41.9 Active 49658404 ALLERGIES No Known Allergies ENCOUNTERS Encounter Location Date Diagnosis [place] [id number] [place] [address] 74275- 4984 Nov, [place] [id number] [place] [address] 58467- 7808 Aug, [place] [address] [place] [id number] [place] [address] 88255- 3898 Aug, Dementia without behavioral disturbance, unspecified dementia type F03.90 [place] [address] [place] [id number] [place] [address] 75222- 4231 Aug, Dementia without behavioral disturbance, unspecified dementia type F03.90 and Anxiety F41.9 [place] [address] [address] 6[address] Jul, Dementia without behavioral disturbance, unspecified dementia type F03.90 [facility] [address] [address] [id number] [place] [address] 15166- 8920 13 Jul, 2017 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 ; Generalized osteoarthritis M15.9 ; Other chronic pain G89.29 ; At risk for falls Z91.81 and Debility R53.81 [facility] [address] [id number] [place] [address] 45343- 7359 Jul, [facility] [address] [place] [id number] [place] [address] 34481- 8055 June, Dementia without behavioral disturbance, unspecified dementia type F03.90 [facility] [address] [place] [address] [id number] [place] [address] 44226- 1046 June, [facility] [id number] [place] [address] 71687- 9147 June, [facility] [id number] [place] [address] 52567- 2467 June, [facility] [id number] [place] [address] 51427- 8058 June, Dementia without behavioral disturbance, unspecified dementia type F03.90 and Anxiety F41.9 [facility] [id number] [place] [address] 75586- 0624 May, [facility] [id number] [place] [address] 49549- 8019 May, [facility] [id number] [place] [address] 93652 -7733 May, Anxiety F41.9 ; Acute drug withdrawal syndrome without complication F19.230 and Abdominal pain, unspecified abdominal location R10.9 [facility] [id number] [place] [address] 40412- 5734 May, Panic attacks F41.0 [facility] [id number] [place] [address] 73690- 4585 May, Other chronic pain G89.29 and Generalized anxiety disorder F41.1 [place] [address] [place] [id number] [place] [address] 99696- 7410 Apr, Housing problems Z59.9 and Panic attacks F41.0 [facility] [id number] [place] [address] 52884- 8152 Mar, Panic attacks F41.0 [facility] [address] [place] [id number] [place] [address] 77536- 0078 Feb, [place] [address] [place] [id number] [place] [address] 69048- 2497 Feb, Panic attacks F41.0 [facility] [address] [place] [id number] [place] [address] 03090- 3256 Feb, Pain in right knee M25.561 ; Pain in left knee M25.562 ; Other chronic pain G89.29 ; Housing problems Z59.9 ; Dementia without behavioral disturbance, unspecified dementia type F03.90 ; Generalized anxiety disorder F41.1 and Advance directive declined by patient Z78.9 [facility] [address] [id number] [place] [address] 53341- 1687 Jan, Panic attacks F41.0 [facility] [address] [place] [id number] [place] [address] 83651- 2756 Jan, Panic attacks F41.0 [facility] [address] [place] [id number] [place] [address] 26736- 7089 Dec, Panic attacks F41.0 [facility] [address] [place] [id number] [place] [address] 80756 -6436 Nov, Allergic contact dermatitis due to cosmetics L23.2 [facility] [address] [place] [id number] [place] [address] 49546- 5612 Nov, Panic attacks F41.0 [facility] [address] [place] [id number] [place] [address] 84708- 1978 08 Oct, 2016 Panic attacks F41.0 [place] [address] [place] [id number] [place] [address] 15267- 1091 Sep, Panic attacks F41.0 ; Insect bite, initial encounter W57.XXXA and 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 [place] [address] 74211- 4814 Sep, [place] [address] [place] [id number] [place] [address] 99515- 7025 Aug, Generalized anxiety disorder F41.1 [place] [address] [place] [id number] [place] [address] 82129- 7256 Jul, [facility] [address] [place] [address] [id number] [place] [address] 37525 -3164 June, Seasonal allergic rhinitis due to other allergic trigger J30.89 [place] [address] [place] [id number] [place] [address] 72125- 0236 June, [place] [address] [place] [id number] [place] [address] 07812- 0846 June, [facility] [address] [place] [id number] [place] [address] 34073 -1816 June, Dysuria R30.0 and RLQ abdominal pain R10.31 [place] [address] [place] [id number] [place] [address] 63286- 3784 May, Generalized anxiety disorder F41.1 ; Generalized osteoarthritis M15.9 and Dementia without behavioral disturbance, unspecified dementia type F03.90 [place] [address] [place] [id number] [place] [address] 20422- 5898 May, [place] [address] [place] [id number] [place] [address] 61121- 1412 May, [place] [address] [place] [id number] [place] [address] 46971- 7700 May, [facility] [id number] [place] [address]- 4900 Apr, [facility] [id number] [place] [address]- 5830 Apr, Generalized anxiety disorder F41.1 [facility] [id number] [place] [address]- 5115 Apr, [facility] [id number] [place] [address] 62236- 6130 Apr, [facility] [id number] [place] [address], [place] [address]- 4412 Apr, [facility] [id number]- 2551 Apr, Generalized anxiety disorder F41.1 [facility] [address] [place] [address], [place] [address]- 8768 Mar, [facility] [address] [address]- 0631 Mar, [facility] [address] [address]- 1512 Mar, [facility] [address] 2027 Mar, [facility] [address] 9599 Mar, Generalized anxiety disorder F41.1 [facility] [address] [address]- 1050 Feb, Anxiety disorder, unspecified F41.9 [facility] [address] [address]- 9160 Feb, [facility] [address] [address]- 7841 Feb, [facility] [address] [place] [id number] [place] [address] 98642- 5927 13 Feb, 2016 [facility] [address] [place] [id number] [place] [address] 31319 -8513 Feb, Urinary frequency R35.0 and Acute cystitis without hematuria N30.00 [facility] [address] [place] [id number] [place] [address] 49231- 9330 Feb, [facility] [address] [id number] [place] [address] 46824- 5142 Jan, [facility] [address] [place] [id number] [place] [address] 91636- 8766 Jan, [facility] [address] [place] [address] [id number] [place] [address] 51221- 6120 Dec, [facility] [address] [place] [address] [id number] [place] [address] 70847- 7386 Dec, [facility] [address] [place] [id number] [place] [address] 20638- 6527 Dec, Edema, unspecified type R60.9 [facility] [address] [place] [id number] [place] [address] 45867- 5808 Dec, [facility] [id number] [place] [address] 32485- 5445 Dec, [facility] [address] [id number] [place] [address] 61501- 9161 30 Oct, 2015 Generalized anxiety disorder F41.1 [facility] [address] [place] [address] [id number] [place] [address] 20052- 1496 20 Oct, 2015 [facility] [address] [place] [id number] [place] [address] 91803- 1405 16 Oct, 2015 [facility] [address] [place] [address] [id number] [place] [address] 61549- 4287 15 Oct, 2015 [facility] [address] [place] [id number] [place] [address] 92100- 6465 Oct, [facility] [address] [address]- 5707 Aug, Anxiety disorder, unspecified F41.9 [facility] [address] [address]- 3551 Jul, Anxiety disorder, unspecified F41.9 [facility] [id number] [place] [address] 46126- 6451 Jul, Generalized anxiety disorder F41.1 [facility] [id number] [place] [address] 48249- 9727 Jul, [facility] [address] [place] [id number] [place] [address] 75614- 2013 June, [facility] [address] [place] [id number] [place] [address] 61123- 9793 June, [facility] [address] [place] [id number] [place] [address] 28619- 6755 June, [facility] [id number] [place] [address] 50110- 3001 June, [facility] [id number] [place] [address] 93974- 9102 May, [facility] [address] [address] -[address] May, Dementia without behavioral disturbance, unspecified dementia type F03.90 and Generalized osteoarthritis M15.9 [facility] [address] [address]- 2968 May, Generalized osteoarthritis M15.9 and 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 [facility] [address] [address]- 5533 Apr, [facility] [address] [address]- 4616 Apr, [facility] [address] [place] [id number] [place] [address] 23108- 8991 Apr, [place] [address] [place] [id number] [place] [address] 00266- 0557 Mar, [place] [address] [place] [id number] [place] [address] 91798- 2504 Mar, [place] [address] [place] [id number] [place] [address] 38400- 8762 Mar, Generalized anxiety disorder F41.1 [place] [address] [place] [id number] [place] [address] 88546- 1091 Feb, Other infective acute otitis externa of right ear H60.391 [place] [address] [place] [id number] [place] [address] 34350- 8795 Dec, Dysuria R30.0 ; Generalized osteoarthritis M15.9 and Gastroesophageal reflux disease, esophagitis presence not specified K21.9 [place] [address] [place] [id number] [place] [address] 81891- 8408 Dec, [place] [address] [place] [id number] [place] [address] 80907- 2710 Dec, Generalized anxiety disorder F41.1 ; Encounter for immunization Z23 and Dementia F03.90 [place] [address] [place] [id number] [place] [address] 41515- 2318 Nov, [place] [address] [place] [id number] [place] [address] 31231- 7648 Oct, [place] [address] [place] [id number] [place] [address] 59582- 2105 24 Oct, 2014 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 ; Chronic pain 338.29 ; Anxiety 300.00 and Dementia 294.20 [place] [address] [place] [id number] [place] [address] 28563- 9631 Oct, [place] [address] [place] [id number] [place] [address] 67792- 3685 Aug, Generalized anxiety disorder 300.02 and Dementia 294.20 [facility] [address] [address]- 6314 Aug, [facility] [address] [place] [address] [id number] [place] [address] 47219- 4448 Aug, Anxiety 300.00 and Chronic pain 338.29 [facility] [address] [place] [address] [id number] [place] [address] 13300- 3814 Jul, [facility] [address] [place] [id number] [place] [address] 59894- 4169 Jul, [facility] [address] [place] [address] [id number] [place] [address] 84411- 2589 June, [facility] [address] [place] [id number] [place] [address] 344464- 0772 June, Anxiety, generalized 300.02 ; Dementia 294.20 and No condition on Hope II V71.09 [facility] [address] [place] [id number] [place] [address] 52111- 5453 May, [facility] [address] [address]- 9747 May, [facility] [id number] [address]- 0451 Apr, [facility] [address], [place] [address]- 1851 Apr, [facility] [address], [place] [address]- 6231 Apr, [facility] [address], [place] [address]- 4297 Apr, [facility] [id number], [place] [address]- 2471 Apr, [facility] [address] 6573 Apr, [facility] [id number] [place] [address] 79131- 8398 Apr, [facility] [place] [facility] [address] [id number] [place] [address]- 8979 Apr, [facility] [place] [facility] [address] [id number] [place] [address]- 6844 Apr, [facility] [place] [facility] [address] [id number] [place] [address]- 5332 Apr, [facility] [place] [facility] [address] [id number] [place] [address]- 1248 Apr, [facility] [place] [facility] [address] [id number] [place] [address]- 4977 Apr, [facility] [place] [facility] [address] [facility] [id number] [place] [address]- 1127 Apr, [facility] [place] [facility] [address] [facility] [id number] [place] [address]- 9277 Apr, [facility] [place] [facility] [address] [facility] [id number] [address]- 1168 Apr, [facility] [place] [facility] [address] [facility] [id number], [place] [address]- 9099 Apr, [facility] [place] [facility] [address] [facility] [id number], [place] [address]- 3935 Mar, [facility] [place] [facility] [address] [id number] [address]- 3041 Mar, 2014 [facility] [place] [facility] [address] [facility] [id number], [place] [address]- 4781 Mar, [facility] [place] [facility] [address] [id number] [place] [address]- 3718 Mar, 2014 [facility] [place] [facility] [address] [id number], [place] [address]- 7246 Mar, 2014 [facility] [place] [facility] [address] [facility] [id number], [place] [address]- 7674 Mar, [facility] [place] [facility] [address] [id number] [place] [address]- 5572 23 Mar, 2014 [facility] [place] [facility] [address] [id number] [place] [address]- 9076 23 Mar, 2014 [facility] [place] [facility] [address] [id number] [place] [address]- 2546 20 Mar, 2014 [facility] [place] [facility] [address] [id number] [place] [address] 2541 20 Mar, 2014 [facility] [place] [facility] [address] [id number] [place] [address] 2548 18 Mar, 2014 [facility] [place] [facility] [address] [id number] [place] [address]- 2545 18 Mar, 2014 [facility] [place] [facility] [address] [facility] [id number] [place] [address]- 7966 17 Mar, 2014 [facility] [place] [facility] [address] [facility] [id number] [place] [address]- 1953 17 Mar, 2014 [facility] [place] [facility] [address] [id number] [place] [address]- 5776 17 Mar, 2014 [facility] [place] [facility] [address] [facility] [id number] [place] [address]- 3763 17 Mar, 2014 [facility] [place] [facility] [address] [facility] [id number] [place] [address]- 2943 13 Mar, 2014 [facility] [place] [facility] [address] [id number] [place] [address]- 2546 13 Mar, 2014 [facility] [place] [facility] [address] [id number] [place] [address]- 2546 13 Mar, 2014 [facility] [place] [facility] [address] [id number] [place] [address]- 2890 13 Mar, 2014 [facility] [place] [facility] [address] [facility] [id number] [place] [address]- 2541 12 Mar, 2014 [facility] [place] [facility] [address] [id number] [place] [address]- 3507 Mar, 2014 [facility] [place] [facility] [address] [id number] [place] [address]- 7149 Mar, 2014 [facility] [place] [facility] [address] [id number] [place] [address]- 4066 Mar, 2014 [facility] [place] [facility] [address] [id number] [place] [address]- 4566 Mar, [facility] [place] [facility] [address] [id number] [place] [address]- 2669 Mar, [facility] [place] [facility] [address] [id number] [place] [address]- 2797 Feb, [facility] [place] [facility] [address] [id number] [place] [address]- 1862 Feb, [facility] [place] [facility] [address] [id number] [place] [address]- 2777 Feb, [facility] [place] [facility] [address] [id number] [place] [address]- 4935 Feb, [facility] [place] [facility] [address] [id number] [place] [address]- 4305 Feb, [facility] [place] [facility] [address] [id number] [place] [address]- 4286 Feb, [facility] [place] [facility] [address] [id number] [place] [address]- 6537 Feb, [facility] [place] [facility] [address] [id number] [place] [address]- 1738 Feb, [facility] [place] [facility] [address] [id number] [place] [address]- 2731 Feb, [facility] [place] [facility] [address] [id number] [place] [address]- 1361 Feb, [facility] [place] [facility] [address] [id number] [place] [address] Feb, [facility] [place] [facility] [address] [id number] [place] [address] Feb, [facility] [place] [facility] [address] [id number] [place] [address] Feb, [facility] [place] [facility] [address] [id number] [place] [address] Feb, [facility] [place] [facility] [address] [id number] [place] [address] Feb, [facility] [place] [facility] [address] [id number] [place] [address] Jan, [facility] [place] [facility] [address] [id number] [place] [address] Jan, [facility] [place] [facility] [address] [id number] [place] [address] Jan, [facility] [place] [facility] [address] [id number] [place] [address] Jan, [facility] [place] [facility] [address] [id number] [place] [address] Jan, [facility] [place] [facility] [address] [id number] [place] [address] Jan, [facility] [place] [facility] [address] [id number] [place] [address] Jan, [facility] [place] [facility] [address] [id number] [place] [address] Jan, [facility] [place] [facility] [address] [id number] [place] [address] Jan, [facility] [place] [facility] [address] [id number] [place] [address] Jan, [facility] [place] [facility] [address] [id number] [place] [address] 1990 Jan, [facility] [place] [facility] [address] [id number] [place] [address] Jan, [facility] [address] [id number] [place] [address] Jan, [facility] [address] [id number] [place] [address] Jan, [facility] [address] [id number] [place] [address] Jan, [facility] [address] [id number] [place] [address] Jan, [facility] [address] [id number] [place] [id number] Jan, [facility] [address] [facility] [id number] [place] [address] Jan, [facility] [address] [id number] [place] [address] Jan, [facility] [address] [id number] [place] [address] Jan, [facility] [place] [facility] [address] [id number] [place] [address] Dec, [facility] [address] [facility] [id number] [place] [address] Dec, [facility] [place] [facility] [address] [id number] [place] [address] Dec, [facility] [place] [facility] [address] [id number] [place] [address] Dec, [facility] [place] [facility] [address] [id number] [place] [address] Dec, [facility] [place] [facility] [address] [facility] [id number] [place] [address] Dec, [facility] [place] [facility] [address] [id number] [place] [address] Dec, [facility] [place] [facility] [address] [id number] [place] [address] Nov, [facility] [place] [facility] [address] [id number] [place] [address] Nov, [facility] [place] [facility] [address] [id number] [place] [address] Nov, [facility] [place] [facility] [address] [id number] [place] [address] Nov, [facility] [place] [facility] [address] [id number] [place] [address] Nov, [facility] [place] [facility] [address] [id number] [place] [address] Nov, [facility] [place] [facility] [address] [id number] [place] [address] 7[address] Nov, [facility] [place] [facility] [address] [id number] [place] [address]- 5261 Nov, [facility] [place] [facility] [address] [id number] [place] [address] 0079 Nov, [facility] [place] [facility] [address] [id number] [place] [address]- 2898 Nov, [facility] [place] [facility] [address] [id number] [place] [address]- 2606 29 Oct, 2013 [facility] [place] [facility] [address] [id number] [address] 29 Oct, 2013 [facility] [place] [facility] [address] [id number] [place] [address]- 6817 15 Oct, 2013 [facility] [place] [facility] [address] [id number] [place] [address]- 5567 15 Oct, 2013 [facility] [place] [facility] [address] [id number] [place] [address]- 2245 15 Oct, 2013 [facility] [place] [facility] [address] [id number] [place] [address]- 8716 15 Oct, 2013 [facility] [place] [facility] [address] [id number] [place] [address]- 3439 10 Oct, 2013 [facility] [place] [facility] [address] [id number] [place] [address]- 4564 Oct, [facility] [place] [facility] [address] [id number] [place] [address]- 6717 Oct, [facility] [place] [facility] [address] [id number] [place] [address]- 9916 Oct, [facility] [place] [facility] [address] [id number] [place] [address]- 5705 Sep, [facility] [place] [facility] [address] [id number] [place] [address]- 3410 Sep, [facility] [place] [facility] [address] [id number] [place] [address]- 7267 Sep, [facility] [place] [facility] [address] [id number] [place] [address]- 5008 Sep, [facility] [place] [facility] [address] [id number] [place] [address]- 3370 Sep, [facility] [place] [facility] [address] [id number] [place] [address]- 4206 Sep, [facility] [place] [facility] [address] [id number] [place] [address]- 5817 Sep, [facility] [place] [facility] [address] [id number] [place] [address]- 1661 Sep, [facility] [place] [facility] [address] [id number] [place] [address]- 6088 Sep, [facility] [place] [facility] [address] [id number] [place] [address]- 8787 Sep, [facility] [place] [facility] [address] [id number] [place] [address]- 5884 Aug, [facility] [place] [facility] [address] [id number] [place] [address]- 5290 Aug, 2013 [facility] [place] [facility] [address] [id number] [place] [address]- 6827 Aug, [facility] [place] [facility] [address] [id number] [place] [address]- 2546 Aug, [facility] [place] [facility] [address] [id number] [place] [address]- 6842 Aug, [facility] [place] [facility] [address] [id number] [place] [address]- 3551 Aug, 2013 [facility] [place] [facility] [address] [id number] [place] [address]- 4470 Aug, [facility] [place] [facility] [address] [id number] [place] [address]- 9753 Aug, 2013 [facility] [place] [facility] [address] [id number] [place] [address]- 3769 Aug, [facility] [place] [facility] [address] [id number] [place] [address]- 9845 Aug, [facility] [place] [facility] [address] [id number] [place] [address]- 3457 Aug, [facility] [place] [facility] [address] [id number] [place] [address]- 8915 Aug, [facility] [place] [facility] [address] [id number] [place] [address]- 0305 Jul, [facility] [place] [facility] [address] [id number] [place] [address]- 7109 Jul, [facility] [place] [facility] [address] [id number] [place] [address]- 3298 Jul, [facility] [place] [facility] [address] [id number] [place] [address]- 0730 Jul, [facility] [place] [facility] [address] [id number] [id number] [address] Jul, [facility] [place] [facility] [address] [id number] [place] [address]- 4167 Jul, [facility] [place] [facility] [address] [id number] [place] [address]- 9649 17 Jul, 2013 [facility] [place] [facility] [address] [id number] [place] [address]- 5925 16 Jul, 2013 [facility] [place] [facility] [address] [id number] [place] [address]- 4916 Jul, [facility] [place] [facility] [address] [id number] [place] [address]- 5620 Jul, [facility] [place] [facility] [address] [id number] [place] [address]- 0658 Jul, [facility] [place] [facility] [address] [id number] [place] [address]- 3999 Jul, [facility] [place] [facility] [address] [id number] [place] [address]- 2660 Jul, [facility] [place] [facility] [address] [id number] [place] [address]- 5037 Jul, [facility] [place] [facility] [address] [id number] [place] [address]- 4814 Jul, [facility] [place] [facility] [address] [id number] [place] [address]- 7884 Jul, [facility] [place] [facility] [address] [id number] [place] [address]- 7532 Jul, [facility] [place] [facility] [address] [id number] [place] [address]- 3442 June, [facility] [place] [facility] [address] [id number] [place] [address]- 0634 June, [facility] [place] [facility] [address] [id number] [place] [address]- 1631 June, [facility] [place] [facility] [address] [id number] [place] [address]- 8866 June, [facility] [address] [id number] [place] [address]- 4738 June, [facility] [place] [facility] [address] [id number] [place] [address]- [address]121 June, [facility] [address] [id number] [place] [address]- 0725 June, [facility] [place] [facility] [address] [id number] [place] [address]- 8428 June, [facility] [place] [facility] [address] [id number] [place] [address]- 5506 June, [facility] [address] [id number] [place] [address]- 9625 June, [facility] [address] [id number] [place] [address]- 2904 June, [facility] [address] [id number] [place] [address]- 3919 June, [facility] [address] [id number] [place] [address]- 8329 June, [facility] [address] [id number] [place] [address]- 1142 June, [facility] [place] [facility] [address] [id number] [place] [address]- 8444 June, [facility] [place] [facility] [address] [id number] [place] [address]- 5568 June, [facility] [place] [facility] [address] [id number] [place] [address]- 0111 June, [facility] [place] [facility] [address] [id number] [place] [address]- 5658 June, [facility] [place] [facility] [address] [id number] [place] [address]- 3196 June, [facility] [place] [facility] [address] [id number] [place] [address]- 9024 June, [facility] [place] [facility] [address] [id number] [place] [address]- 4446 June, [facility] [place] [facility] [address] [id number] [place] [address] June, [facility] [place] [facility] [address] [id number] [place] [address]- 4328 June, [facility] [place] [facility] [address] [id number] [place] [address]- 5294 June, [facility] [place] [facility] [address] [id number] [place] [address]- 7162 June, [facility] [place] [facility] [address] [id number] [place] [address]- 4867 June, [facility] [place] [facility] [address] [id number] [place] [address]- 1888 June, [facility] [place] [facility] [address] [id number] [place] [address]- 2955 June, [facility] [place] [facility] [address] [id number] [place] [address]- 0389 June, [facility] [place] [facility] [address] [id number] [place] [address]- 3917 June, [facility] [place] [facility] [address] [id number] [place] [address]- 7377 June, [facility] [place] [facility] [address] [id number] [place] [address]- 7162 June, [facility] [place] [facility] [address] [id number] [place] [address]- 4376 May, [facility] [place] [facility] [address] [id number] [place] [address]- 4078 May, [facility] [place] [facility] [address] [id number] [place] [address]- 7314 May, [facility] [place] [facility] [address] [id number] [place] [address]- 3276 May, [facility] [place] [facility] [address] [id number] [place] [address]- 2097 May, [facility] [place] [facility] [address] [id number] [place] [address]- 1520 May, [facility] [place] [facility] [address] [id number] [place] [address]- 7274 May, [facility] [place] [facility] [address] [id number] [place] [address]- 5748 May, [facility] [place] [facility] [address] [id number] [place] [address]- 0256 May, [facility] [place] [facility] [address] [id number] [place] [address]- 0020 May, [facility] [place] [facility] [address] [id number] [place] [address]- 5639 May, [facility] [place] [facility] [address] [id number] [place] [address]- 9723 May, [facility] [place] [facility] [address] [id number] [place] [address]- 0951 May, [facility] [place] [facility] [address] [id number] [place] [address]- 5455 May, [facility] [place] [facility] [address] [id number], [place] [address]- 4506 May, [facility] [place] [facility] [address] [id number] [place] [address]- 5380 Apr, [facility] [place] [facility] [address] [id number] [place] [address]- 2906 Apr, [facility] [place] [facility] [address] [id number] [place] [address]- 7805 Apr, [facility] [place] [facility] [address] [id number] [place] [address]- 1718 Apr, [facility] [place] [facility] [address] [id number] [place] [address]- 6856 Apr, [facility] [place] [facility] [address] [id number] [place] [address]- 5606 Apr, [facility] [place] [facility] [address] [id number] [place] [address]- 2316 Mar, [facility] [place] [facility] [address] [id number] [place] [address]- 2491 Mar, [facility] [place] [facility] [address] [id number] [place] [address]- 0791 Mar, [facility] [place] [facility] [address] [id number] [place] [address]- 9236 Mar, [facility] [place] [facility] [address] [id number] [place] [address]- 8272 Mar, [facility] [place] [facility] [address] [id number] [place] [address]- 6492 Mar, [facility] [place] [facility] [address] [id number] [place] [address]- 5842 Mar, [facility] [place] [facility] [address] [facility] [id number] [place] [address]- 2691 Mar, [facility] [place] [facility] [address] [id number] [place] [address]- 6720 Feb, [facility] [place] [facility] [address] [id number] [place] [address]- 4454 Feb, [facility] [place] [facility] [address] [id number] [place] [address] 2546 Feb, [facility] [place] [facility] [address] [facility] [id number] [place] [address]- 1080 Feb, [facility] [place] [facility] [address] [id number] [place] [address]- 9918 Feb, [facility] [address] [id number] [place] [address]- 4958 Feb, [facility] [place] [facility] [address] [id number] [place] [address]- 5147 Feb, [facility] [place] [facility] [address] [facility] [id number] [place] [address]- 9564 Feb, [facility] [place] [facility] [address] [id number] [place] [address]- 6636 Feb, [facility] [place] [facility] [address] [id number] [place] [address]- 6913 Feb, [facility] [place] [facility] [address] [id number] [place] [address]- 1950 Jan, [facility] [place] [facility] [address] [id number] [place] [address]- 9185 Jan, [facility] [place] [facility] [address] [id number] [place] [address]- 8887 Jan, [facility] [place] [facility] [address] [id number] [place] [address]- 6147 Jan, [facility] [place] [facility] [address] [id number] [place] [address]- 3642 Jan, [facility] [place] [facility] [address] [id number], [place] [address]- 2496 Jan, [facility] [place] [facility] [address] [id number], [place] [address]- 9954 Jan, [facility] [place] [facility] [address] [id number] [place] [address]- 2974 Jan, [facility] [place] [facility] [address] [id number] [place] [address]- 4513 Dec, [facility] [place] [facility] [address] [id number] [place] [address]- 3693 Dec, [facility] [place] [facility] [address] [id number] [place] [address]- 5735 06 Dec, 2012 [facility] [place] [facility] [address] [id number] [place] [address]- 6720 06 Dec, 2012 [facility] [place] [facility] [address] [id number] [place] [address]46 Dec, [facility] [place] [facility] [address] [id number] [place] [address]- 2342 Dec, [facility] [place] [facility] [address] [id number] [place] [address]- 7781 Dec, [facility] [place] [facility] [address] [id number] [place] [address]- 5415 Dec, [facility] [place] [facility] [address] [id number] [place] [address]- 2296 Nov, [facility] [place] [facility] [address] [id number] [place] [address]- 4774 Nov, [facility] [place] [facility] [address] [id number] [place] [address]- 0794 Nov, [facility] [place] [facility] [address] [id number] [place] [address]- 6332 14 Nov, 2012 [facility] [place] [facility] [address] [facility] [id number] [place] [address]- 1693 Nov, [facility] [place] [facility] [address] [id number] [place] [address]- 3555 07 Nov, 2012 [facility] [place] [facility] [address] [id number] [place] [address]- 2519 07 Nov, 2012 [facility] [place] [facility] [address] [id number] [place] [address]- 0676 10 Oct, 2012 [facility] [place] [facility] [address] [id number] [place] [address]- 8859 10 Oct, 2012 [facility] [place] [facility] [address] [id number] [place] 1672 Oct, [facility] [place] [facility] [address] [id number] [place] [address]- 2946 Sep, [facility] [address] [id number] [place] [address]- 2543 Sep, [facility] [address] [id number] [place] [address]- 6410 Sep, [facility] [place] [facility] [address] [id number] [place] [address]- 3028 Sep, [facility] [address] [id number] [place] [address]- 5755 Aug, [facility] [place] [facility] [address] [id number] [place] [address]- 8818 Aug, [facility] [address] [id number] [place] [address]- 7975 Aug, [facility] [address] [id number] [place] [address]- 3806 Aug, [facility] [address] [id number] [place] [address]- 6780 Aug, [facility] [place] [facility] [address] [id number] [place] [address]- 0044 Jul, [facility] [place] [facility] [address] [id number] [place] [address]- 8399 Jul, [facility] [place] [facility] [address] [id number] [place] [address]- 0935 Jul, [facility] [place] [facility] [address] [id number] [place] [address]- 5648 Jul, [facility] [place] [facility] [address] [id number] [place] [address]- 9782 Jul, [facility] [place] [facility] [address] [id number] [place] [address]- 4810 June, [facility] [place] [facility] [address] [id number] [place] [address]- 4100 June, [facility] [address] [id number] [place] [address]- 2165 June, [facility] [address] [id number] [place] [address]- 9141 June, [facility] [address] [id number] [place] [address]- 6059 June, [facility] [place] [facility] [address] [id number] [place] [address]- 4655 May, [facility] [address] [id number] [place] [address]- 4911 May, [facility] [address] [id number] [place] [address]- 9564 May, [facility] [address] [id number] [place] [address]- 8810 May, [facility] [address] [id number] [place] [address]- 9372 May, [facility] [address] [id number] [place] [address]- 6479 May, [facility] [place] [facility] [address] [id number] [place] [address]- 4543 May, [facility] [address] [id number] [place] [address]- 4117 Apr, [facility] [place] [facility] [address] [id number] [place] [address]- 4417 Apr, [facility] [place] [facility] [address] [id number] [place] [address]- 3080 Apr, [facility] [place] [facility] [address] [id number] [place] [address] Mar, [facility] [place] [facility] [address] [id number] [place] [address] Mar, [facility] [place] [facility] [address] [id number] [place] [address] 20 Mar, 2012 [facility] [address] [id number] [place] [address] 19 Mar, 2012 [facility] [place] [facility] [address] [id number] [place] [address]46 13 Mar, 2012 [facility] [address] [id number] [place] [address] 2916 13 Mar, 2012 [facility] [address] [id number] [place] [address] 07 Mar, 2012 [facility] [address] [id number] [place] [address] 1883 07 Mar, 2012 [facility] [address] [facility] [id number] [place] [address] 31 Feb, 2012 [facility] [address] [id number] [place] [address]15 29 Feb, 2012 [facility] [address] [id number] [place] [address] 16[address] Feb, [facility] [address] [facility] [id number] [place] [address] Feb, [facility] [address] [id number] [place] [address] 96[address] 18 Feb, 2012 [facility] [address] [id number] [place] [address]- 6866 15 Feb, 2012 [facility] [place] [facility] [address] [id number] [place] [address]- [address]162 14 Feb, 2012 [facility] [place] [facility] [address] [id number] [place] [address] Jan, [facility] [place] [facility] [address] [id number] [place] [address] 1084 Jan, [facility] [place] [facility] [address] [id number] [place] [address] 1589 Jan, [facility] [place] [facility] [address] [id number] [place] [address]- [address]26 Jan, [facility] [place] [facility] [address] [id number] [place] [address]- [address] Jan, [facility] [place] [facility] [address] [id number] [place] [address]- 1786 Jan, [facility] [place] [facility] [address] [id number] [place] [address] 48[address] Jan, [facility] [place] [facility] [address] [id number] [place] [address]- 0727 Jan, [facility] [place] [facility] [address] [id number] [place] [address] 9739 Jan, [facility] [place] [facility] [address] [id number] [place] [address]- 2895 Jan, [facility] [place] [facility] [address] [id number] [place] [address]- [address] Jan, [facility] [place] [facility] [address] [id number] [place] [address]- 9178 Jan, [facility] [place] [facility] [address] [id number] [place] [address]- 0[address] Jan, [facility] [place] [facility] [address] [id number] [place] [address]- [address] Jan, [facility] [place] [facility] [address] [id number] [place] [address]- 7054 Dec, [facility] [place] [facility] [address] [id number] [place] [address] 9806 Dec, [facility] [place] [facility] [address] [id number] [place] [address] 6628 Dec, [facility] [place] [facility] [address] [id number] [place] [address]- 6476 Dec, [facility] [place] [facility] [address] [id number] [place] [address]- [address]334 27 Dec, 2011 [facility] [place] [facility] [address] [id number] [place] [address]- 1498 Dec, [facility] [place] [facility] [address] [id number] [place] [address]- 7936 Dec, [facility] [place] [facility] [address] [id number] [place] [address]- 9561 Dec, [facility] [place] [facility] [address] [id number] [place] [address] 3459 Dec, [facility] [place] [facility] [address] [id number] [place] [address]- 8318 Dec, [facility] [place] [facility] [address] [id number] [place] [address]- 1042 Dec, [facility] [place] [facility] [address] [id number] [place] [address]- 6740 Dec, [facility] [place] [facility] [address] [id number] [place] [address]- 0169 Dec, [facility] [place] [facility] [address] [id number] [place] [address]- 7707 Dec, [facility] [place] [facility] [address] [id number] [place] [address]- 2517 Dec, [facility] [place] [facility] [address] [id number] [place] [address]- 1559 Dec, [facility] [place] [facility] [address] [id number] [place] [address]- 7993 Dec, [facility] [place] [facility] [address] [id number] [place] [address]- 2606 Dec, [facility] [place] [facility] [address] [id number] [place] [address]- 5028 Dec, [facility] [place] [facility] [address] [id number] [place] [address]- 8576 Dec, [facility] [place] [facility] [address] [id number] [place] [address]- 3657 Nov, [facility] [place] [facility] [address] [id number] [place] [address]- 6781 Nov, [facility] [place] [facility] [address] [id number] [place] [address]- 0733 Nov, [facility] [place] [facility] [address] [id number] [place] [address]- 0096 Nov, [facility] [place] [facility] [address] [id number] [place] [address]- 8988 Nov, [facility] [place] [facility] [address] [id number] [place] [address]- 3824 Nov, [facility] [place] [facility] [address] [id number] [place] [address]- 0108 Nov, [facility] [place] [facility] [address] [id number] [place] [address]- 4960 Nov, [facility] [place] [facility] [address] [id number] [place] [address]- 7442 Nov, [facility] [place] [facility] [address] [id number], [place] [address]- [address] Nov, [facility] [place] [facility] [address] [id number], [place] [address] 0424 Nov, [facility] [place] [facility] [address] [id number], [place] [address]- [address] Nov, [facility] [place] [facility] [address] [id number] [place] [address]- 8081 Nov, [facility] [place] [facility] [address] [id number], [place] [address]- [address]44 30 Oct, 2011 [facility] [place] [facility] [address] [id number] [place] [address]- 2773 Oct, [facility] [place] [facility] [address] [id number] [place] [address]- 5435 24 Oct, 2011 [facility] [place] [facility] [address] [id number] [place] [address]- 2586 20 Oct, 2011 [facility] [place] [facility] [address] [id number] [place] [address]- 2566 Oct, [facility] [place] [facility] [address] [id number] [place] [address] Oct, [facility] [place] [facility] [address] [id number] [place] [address] 24 Sep, 2011 [facility] [place] [facility] [address] [id number] [place] [address] Sep, [facility] [place] [facility] [address] [id number] [place] [address] Sep, [facility] [place] [facility] [address] [id number] [place] [address] Sep, [facility] [place] [facility] [address] [id number] [place] [address] Aug, [facility] [place] [facility] [address] [id number] [place] [address] Aug, [facility] [place] [facility] [address] [id number] [place] [address] Aug, [facility] [place] [facility] [address] [id number] [place] [address] Jul, [facility] [place] [facility] [address] [id number] [place] [address] Jul, [facility] [place] [facility] [address] [id number] [place] [address] Jul, [facility] [place] [facility] [address] [id number] [place] [address] Jul, [facility] [place] [facility] [address] [id number] [place] [address] June, [facility] [place] [facility] [address] [id number] [place] [address] June, [facility] [place] [facility] [address] [id number] [place] [address] June, [facility] [place] [facility] [address] [id number] [place] [address] June, [facility] [place] [facility] [address] [id number] [place] [address] June, [facility] [place] [facility] [address] [id number] [place] [address] June, [facility] [place] [facility] [address] [id number] [place] [address] May, [facility] [place] [facility] [address] [id number] [place] [address] May, [facility] [place] [facility] [address] [id number] [place] [address] May, [facility] [place] [facility] [address] [id number] [place] [address]32 24 May, 2011 [facility] [place] [facility] [address] [id number] [place] [address] May, [facility] [place] [facility] [address] [id number] [place] [address] 18 May, 2011 [facility] [place] [facility] [address] [id number] [place] [address] 3920 May, [facility] [place] [facility] [address] [id number] [place] [address] 05 May, 2011 [facility] [place] [facility] [address] [id number] [place] [address] 2481 May, [facility] [place] [facility] [address] [id number] [place] [address] Apr, [facility] [place] [facility] [address] [id number] [place] [address] 96[address] Mar, [facility] [place] [facility] [address] [id number] [place] [address] Mar, [facility] [place] [facility] [address] [id number] [place] [address]394 Mar, [facility] [place] [facility] [address] [id number] [place] [address] 2510 Mar, [facility] [place] [facility] [address] [id number] [place] [address] Feb, [facility] [place] [facility] [address] [id number] [place] [address] 1314 Feb, [facility] [place] [facility] [address] [id number] [place] [address] Feb, [facility] [place] [facility] [address] [id number] [place] [address] Jan, [facility] [place] [facility] [address] [id number] [place] [address] Jan, [facility] [place] [facility] [address] [id number], [place] [address] Jan, [facility] [place] [facility] [address] [id number], [place] [address] Dec, [facility] [place] [facility] [address] [id number], [place] [address] Dec, [facility] [place] [facility] [address] [id number], [place] [address] 16 Dec, 2010 [facility] [place] [facility] [address] [id number], [place] [address] 15 Dec, 2010 [facility] [place] [facility] [address] [id number], [place] [address] 31 Nov, 2010 [facility] [place] [facility] [address] [id number] [place] [address]- [address] 31 Nov, 2010 [facility] [place] [facility] [address] [id number] [place] [address] 19 Nov, 2010 [facility] [address] [id number] [place] [address] 18 Nov, 2010 [facility] [place] [facility] [address] [id number] [place] [address] 7796 13 Oct, 2010 [facility] [address] [id number] [place] [address] 1673 Jul, [facility] [place] [facility] [address] [id number] [place] [address] Jan, [facility] [address] [id number] [place] [address] Dec, [facility] [place] [facility] [address] [id number] [place] [address]120 Dec, [facility] [place] [facility] [address] [id number] [place] [address]- 5190 Dec, [facility] [address] [id number] [place] [address]652 Dec, [facility] [place] [facility] [address] [id number] [place] [address]- 8126 Dec, [facility] [address] [id number] [place] [address]139 Dec, [facility] [place] [facility] [address] [id number] [place] [address]- 1252 Nov, [facility] [place] [facility] [address] [id number] [place] [address]- 2555 Nov, [facility] [place] [facility] [address] [id number] [place] [address]- 1227 Nov, [facility] [place] [facility] [address] [id number] [place] [address]- 9183 Apr, [facility] [place] [facility] [address] [id number] [place] [address]- 7865 Apr, [facility] [place] [facility] [address] [id number] [place] [address]- [address]26 29 Jan, 2009 [facility] [place] [facility] [address] [id number] [place] [address]- 9176 28 Jan, 2009 [facility] [place] [facility] [address] [id number] [place] [address]- 7861 Jan, [facility] [place] [facility] [address] [id number] [place] [address] 2546 Jan, [facility] [place] [facility] [address] [id number] [place] [address]- 6258 14 Jan, 2009 [facility] [place] [facility] [address] [id number] [place] [address]- 9416 Jan, [facility] [place] [facility] [address] [id number] [place] [address]- 7673 30 Dec, 2008 [facility] [place] [facility] [address] [id number], [place] [address] Dec, [facility] [place] [facility] [address] [id number], [place] [address] 18 Dec, 2008 [facility] [place] [facility] [address] [id number], [place] [address]- [address]86 Dec, [facility] [place] [facility] [address] [id number], [place] [address]- 3931 Dec, [facility] [place] [facility] [address] [id number], [place] [address]- [address]347 Dec, [facility] [place] [facility] [address] [id number], [place] [address]- 2861 Nov, [facility] [place] [facility] [address] [id number], [place] [address]- 3206 Nov, [facility] [place] [facility] [address] [id number], [place] [address]- [address] 15 Aug, 2008 [facility] [place] [facility] [address] [id number][place] [address]- [address] Jul, [facility] [address] [facility] [id number], [place] [address] June, [facility] [address] [facility] [id number][place] [address] Apr, IMMUNIZATIONS No Known Immunizations SOCIAL HISTORY Never Assessed REASON FOR VISIT stomach ache/ nausea for the last couple days JStrasserRN PLAN OF CARE Activity Details Follow Up prn Reason: VITAL SIGNS Height 63 in 2017-06-10 Weight 118.0 lbs 2017-06-10 Temperature 98.9 degrees Fahrenheit 2017-06-10 Heart Rate 118 bpm 2017-06-10 Respiratory Rate 24 2017-06-10 BMI 20.90 kg/m2 2017-06-10 Blood pressure systolic 172 mmHg 2017-06-10 Blood pressure diastolic 92 mmHg 2017-06-10 MEDICATIONS Medication Instructions Dosage Frequency Start Date End Date Duration Status Famotidine 20 mg Orally Twice a day 1 tablet 12h 90 days Active Acetaminophen 500 MG Orally three times per day 2 tablets Not- Taking Artificial Tear Solution Ophthalmic 2 times a day 2 drops as needed 12h Active Clonazepam 0.5 MG Orally 2 times a day 1 tablet 12h 28 days Active Restasis 0.05 % Ophthalmic Twice a day 1 drop into affected eye 12h Active Furosemide 20 mg Orally Once a day 1 tablet 24h 30 Not-Taking Duloxetine HCl 60 mg Orally 2 times a day 1 capsule 12h 90 days Active BusPIRone HCl 5 mg Orally 2 times a day 1 tablet 12h 90 days Active Meloxicam 7.5 MG orally 2 times a day 1 tablet 12h 90 days Active RESULTS Name Result Date Reference Range UA LONG DIP (IN HOUSE) 2017-06-10 Lot # [id number] Exp date 2017-12-24 Clarity clear Color yellow Odor none GLU negative YADIRA negative KET negative SG 1.015 BLO negative pH 6.5 Protein negative URO 0.2 NIT negative TATIANA negative Lot # [id number] Exp date May 2017 PROCEDURES Procedure Date Ordered Result Body Site [facility] VISIT ESTABLISHED PATIENT June 10, 2017 URINALYSIS, AUTO, W/O SCOPE June 10, 2017 INSTRUCTIONS MEDICATIONS ADMINISTERED No Known Medications [...] of loosened hardware/hip replacement ( [facility] in [place]) 09/2008 Hospitalization History in pt rehab s/p left hip repair 09/2008-11/2008 Hospitalization History [facility] 07/2009
--- OUTSIDE RECORDS SUMMARY | 2017-10-26 13:44 | XMS REPORT ---
Author Author [facility] Address [address] [place] [address] Care Team Providers Care Stripper Soft [employer]astic Name Role Phone KATHLEEN TRIANAY Unavailable PROBLEMS Type Condition ICD9-CM Code [id number] Code Onset Dates Condition Status SNOMED Code Problem Generalized anxiety disorder F41.1 Active 743506164 Problem Seasonal allergic rhinitis due to other allergic trigger J30.89 Active 966336413 Problem Anxiety disorder, unspecified F41.9 Active 289224699 Problem 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 Active 599513683 Problem Meningioma D32.9 Active 448319446 Problem Generalized osteoarthritis M15.9 Active 594626216 Problem Dementia without behavioral disturbance, unspecified dementia type F03.90 Active 10672568 Problem Debility R53.81 Active 78365046 Problem At risk for falls Z91.81 Active 073037439 Problem Other chronic pain G89.29 Active 16229600 Problem Panic attacks F41.0 Active 906694459 Problem Acute drug withdrawal syndrome without complication F19.230 Active 098160062 Problem Anxiety F41.9 Active 56923300 ALLERGIES No Information ENCOUNTERS Encounter Location Date Diagnosis [facility] [id number], [place] [address] Nov, [facility] [address], [place] [address] 68[address] Aug, [facility] [id number], [place] [address]26 Aug, Dementia without behavioral disturbance, unspecified dementia type F03.90 [facility] [id number], [place] [address] 6328 Aug, Dementia without behavioral disturbance, unspecified dementia type F03.90 and Anxiety F41.9 [facility] [address], [place] [address] Jul, Dementia without behavioral disturbance, unspecified dementia type F03.90 [facility] [id number] [place] [address] 42381- 0478 Jul, 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 ; Generalized osteoarthritis M15.9 ; Other chronic pain G89.29 ; At risk for falls Z91.81 and Debility R53.81 [facility] [id number] [place] [address] 30289- 5103 Jul, [facility] [id number] [place] [address] 13353- 5478 June, Dementia without behavioral disturbance, unspecified dementia type F03.90 [facility] [id number] [place] [address] 73713- 6193 June, [facility] [id number] [place] [address] 94937- 0150 June, [facility] [id number] [place] [address] 67743- 6643 June, [facility] [id number] [place] [address] 57567- 3891 June, Dementia without behavioral disturbance, unspecified dementia type F03.90 and Anxiety F41.9 [facility] [address] [place] [address] 01537- 0384 May, [facility] [id number] [place] [address] 42813- 9236 May, [facility] [address] [place] [address] 75939 -7149 May, Anxiety F41.9 ; Acute drug withdrawal syndrome without complication F19.230 and Abdominal pain, unspecified abdominal location R10.9 [facility] [address], [place] [address]- 6045 May, Panic attacks F41.0 [facility] [id number] [place] [address] 39950- 2318 May, Other chronic pain G89.29 and Generalized anxiety disorder F41.1 [facility] [id number] [place] [address] 45333- 4179 Apr, Housing problems Z59.9 and Panic attacks F41.0 [facility] [id number] [place] [address] 37657- 8464 Mar, Panic attacks F41.0 [facility] [id number] [place] [address] 09799- 9260 Feb, [facility] [address] 86055- 9165 Feb, Panic attacks F41.0 [facility] [id number] [place] [address] 80219- 7584 Feb, Pain in right knee M25.561 ; Pain in left knee M25.562 ; Other chronic pain G89.29 ; Housing problems Z59.9 ; Dementia without behavioral disturbance, unspecified dementia type F03.90 ; Generalized anxiety disorder F41.1 and Advance directive declined by patient Z78.9 [facility] [id number] [place] [address] 07124- 2221 Jan, Panic attacks F41.0 [facility] [id number] [place] [address] 48022- 9400 Jan, Panic attacks F41.0 [facility] [id number] [place] [address] 33690- 7729 Dec, Panic attacks F41.0 [facility] [address] 88195 -5153 Nov, Allergic contact dermatitis due to cosmetics L23.2 [facility] [id number] [place] [address] 24679- 5653 Nov, Panic attacks F41.0 [facility] [address] [place] [address]- 4319 08 Oct, 2016 Panic attacks F41.0 [facility] [id number] [place] [address] 89500- 5128 Sep, Panic attacks F41.0 ; Insect bite, initial encounter W57.XXXA and 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 [facility] [id number] [place] [address] 69247- 9164 Sep, [facility] [address] 54890- 0439 Aug, Generalized anxiety disorder F41.1 [facility] [address] 13291- 4938 Jul, [facility] [id number] [place] [address] 31800 -6289 June, Seasonal allergic rhinitis due to other allergic trigger J30.89 [facility] [id number] [place] [address] 50454- 5873 June, [facility] [id number] [place] [address] 76376- 2887 June, [facility] [id number] [place] [address] 75191 -4473 June, Dysuria R30.0 and RLQ abdominal pain R10.31 [facility] [id number] [place] [address] 16021- 8294 May, Generalized anxiety disorder F41.1 ; Generalized osteoarthritis M15.9 and Dementia without behavioral disturbance, unspecified dementia type F03.90 [facility] [id number] [place] [address] 75548- 6399 May, [facility] [id number] [place] [address] 80038- 1632 May, [facility] [id number] [place] [address] 62733- 9623 May, [facility] [address], [place] [address]- 3695 Apr, [facility] [address] [place] [address], [place] [address]- 1753 Apr, Generalized anxiety disorder F41.1 [facility] [id number] [place] [address]- 7423 Apr, [facility] [id number] [place] [address] 54567- 3912 Apr, [facility] [address] [place] [address], [place] [address]- 0051 Apr, [facility] [address] [place] [address] 12820- 2635 Apr, Generalized anxiety disorder F41.1 [facility] [address] [place] [address] 37233- 2074 Mar, [facility] [address], [place] [address]- 2679 Mar, [facility] [address], [place] [address]- 7255 Mar, [facility] [address], [place] [address]- 1968 Mar, [facility] [address], [place] [address]- 7468 Mar, Generalized anxiety disorder F41.1 [facility] [address], [place] [address]- 4086 Feb, Anxiety disorder, unspecified F41.9 [facility] [address], [place] [address]- 2264 Feb, [facility] [address], [place] [address]- 4447 Feb, [facility] [address], [place] [address]- 5171 Feb, [facility] [address] [place] [address] 87470 -7398 Feb, Urinary frequency R35.0 and Acute cystitis without hematuria N30.00 [facility] [id number] [place] [address] 87395- 4588 Feb, [facility] [id number] [place] [address] 35081- 0828 Jan, [facility] [id number] [place] [address] 23917- 2369 Jan, [facility] [id number] [place] [address] 39698- 6327 Dec, [facility] [id number] [place] [address] 30766- 7776 Dec, [facility] [id number] [place] [address] 58069- 8636 Dec, Edema, unspecified type R60.9 [facility] [id number] [place] [address] 67818- 3003 Dec, [facility] [id number] [place] [address] 13533- 2215 Dec, [facility] [id number] [place] [address] 92935- 4285 30 Oct, 2015 Generalized anxiety disorder F41.1 [facility] [address] [place] [address] 94362- 9847 20 Oct, 2015 [facility] [id number] [place] [address] 37268- 9406 16 Oct, 2015 [facility] [id number] [place] [address] 02146- 4612 15 Oct, 2015 [facility] [address] [place] [address] 74369- 7725 06 Oct, 2015 [facility] [address], [place] [address]- 9480 Aug, Anxiety disorder, unspecified F41.9 [facility] [address], [place] [address]- 4277 Jul, Anxiety disorder, unspecified F41.9 [facility] [address] [place] [address]- 1131 Jul, Generalized anxiety disorder F41.1 [facility] [address], [place] [address]- 6457 Jul, [facility] [address] [place] [address] 78163- 1261 June, [facility] [address] [place] [address] 96805- 0095 June, [facility] [id number] [place] [address] 42421- 7506 June, [facility] [address], [place] [address]- 8474 June, [facility] [address] [place] [address] 26377- 4682 May, [facility] [address], [place] [address] -4557 May, Dementia without behavioral disturbance, unspecified dementia type F03.90 and Generalized osteoarthritis M15.9 [facility] [address], [place] [address]- 6366 May, Generalized osteoarthritis M15.9 and 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 [facility] [address], [place] [address]- 6551 Apr, [facility] [address], [place] [address]- 2401 Apr, [facility] [address], [place] [address]- 4455 Apr, [facility] [id number] [place] [address] 87198- 1306 Mar, [facility] [address] 35873- 8037 Mar, [facility] [address] 96648- 7572 Mar, Generalized anxiety disorder F41.1 [facility] [address] 22421- 5466 Feb, Other infective acute otitis externa of right ear H60.[address] 14000- 0581 Dec, Dysuria R30.0 ; Generalized osteoarthritis M15.9 and Gastroesophageal reflux disease, esophagitis presence not specified K21.[address] 52152- 6729 Dec, [facility] [address] 38249- 1037 Dec, Generalized anxiety disorder F41.1 ; Encounter for immunization Z23 and Dementia F03.90 [facility] [id number] [place] [address] 84751- 6912 Nov, [facility] [id number] [place] [address] 52013- 9045 Oct, [facility] [address] 76519- 0777 24 Oct, 2014 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 ; Chronic pain 338.29 ; Anxiety 300.00 and Dementia 294.[address] 02042- 9649 Oct, [facility] [id number] [place] [address] 26866- 5579 Aug, Generalized anxiety disorder 300.02 and Dementia 294.20 [facility] [address], [place] [address]- 7186 Aug, [facility] [address], [place] [address]- 4434 Aug, Anxiety 300.00 and Chronic pain 338.29 [facility] [address], [place] [address]- 5589 Jul, [facility] [id number] [place] [address] 30828- 5886 Jul, [facility] [address], [place] [address]- 0495 June, [facility] [id number] [place] [address] 40911- 4956 June, Anxiety, generalized 300.02 ; Dementia 294.20 and No condition on [place] II V71.09 [facility] [id number], [place] [address]- 9328 May, [facility] [address], [place] [address]- 1760 May, [facility] [address], [place] [address]- 6346 Apr, [facility] [address], [place] [address]- 8274 Apr, [facility] [address], [place] [address]- 6626 Apr, [facility] [address], [place] [address]- 6121 Apr, [facility] [address], [place] [address]- 0995 Apr, [facility] [id number], [place] [address]- 2546 Apr, [facility] [address] 2276 Apr, [facility] [place] [facility] [address] [id number] [place] [address]- 8580 Apr, [facility] [place] [facility] [address] [id number] [place] [address]- 7300 Apr, [facility] [place] [facility] [address] [id number] [place] [address]- 8604 Apr, [facility] [place] [facility] [address] [id number] [place] [address]- 0922 Apr, [facility] [place] [facility] [address] [id number] [place] [address]- 3947 Apr, [facility] [place] [facility] [address] [id number] [place] [address]- 4472 Apr, [facility] [place] [facility] [address] [id number] [place] [address]- 5129 Apr, [facility] [place] [facility] [address] [id number] [place] [address]- 8518 Apr, [facility] [place] [facility] [address] [id number] [place] [address]- 4224 Apr, [facility] [place] [facility] [address] [id number] [place] [address]- 8055 Mar, 2014 [facility] [place] [facility] [address] [id number] [address]- 2695 Mar, 2014 [facility] [place] [facility] [address] [id number], [place] [address]- 8797 Mar, 2014 [facility] [place] [facility] [address] [id number] [place] [address]- 7333 Mar, 2014 [facility] [place] [facility] [address] [id number] [place] [address]- 1327 Mar, 2014 [facility] [place] [facility] [address] [id number] [place] [address]- 9630 Mar, 2014 [facility] [place] [facility] [address] [id number] [place] [address]- 3123 23 Mar, 2014 [facility] [place] [facility] [address] [id number] [place] [address]- 6816 23 Mar, 2014 [facility] [place] [facility] [address] [id number] [place] [address]- 2546 20 Mar, 2014 [facility] [place] [facility] [address] [id number] [place] [address]- 9821 20 Mar, 2014 [facility] [place] [facility] [address] [id number] [place] [address]- 2545 18 Mar, 2014 [facility] [place] [facility] [address] [id number] [place] [address]- 1962 18 Mar, 2014 [facility] [place] [facility] [address] [facility] [id number] [place] [address]- 1955 17 Mar, 2014 [facility] [place] [facility] [address] [facility] [id number] [place] [address]- 8470 17 Mar, 2014 [facility] [place] [facility] [address] [facility] [id number] [place] [address]- 4755 17 Mar, 2014 [facility] [place] [facility] [address] [facility] [id number] [place] [address]- 3375 17 Mar, 2014 [facility] [place] [facility] [address] [facility] [id number] [place] [address]- 7723 13 Mar, 2014 [facility] [place] [facility] [address] [facility] [id number] [address]- 5549 13 Mar, 2014 [facility] [place] [facility] [address] [facility] [id number] [place] [address]- 2542 13 Mar, 2014 [facility] [place] [facility] [address] [facility] [id number] [place] [address]- 4852 13 Mar, 2014 [facility] [place] [facility] [address] [facility] [id number] [place] [address]- 8195 12 Mar, 2014 [facility] [place] [facility] [address] [facility] [id number] [place] [address]- 5129 12 Mar, 2014 [facility] [place] [facility] [address] [id number] [place] [address]- 3306 Mar, 2014 [facility] [place] [facility] [address] [id number] [place] [address]- 2546 Mar, 2014 [facility] [place] [facility] [address] [id number] [place] [address]- 4726 Mar, [facility] [place] [facility] [address] [id number] [place] [address]- 2543 Mar, [facility] [place] [facility] [address] [id number] [place] [address]- 7251 Feb, [facility] [place] [facility] [address] [id number] [place] [address]- 0280 Feb, [facility] [place] [facility] [address] [id number] [place] [address]- 6650 Feb, [facility] [place] [facility] [address] [id number] [place] [address]- 4247 Feb, [facility] [place] [facility] [address] [id number] [place] [address]- 8715 Feb, [facility] [place] [facility] [address] [facility] [id number] [place] [address]- 7005 Feb, [facility] [place] [facility] [address] [id number] [place] [address]- 2541 Feb, [facility] [place] [facility] [address] [id number] [place] [address]- 2549 Feb, [facility] [place] [facility] [address] [id number] [place] [address]- 9818 Feb, [facility] [place] [facility] [address] [id number] [place] [address]- 7834 Feb, [facility] [place] [facility] [address] [id number] [place] [address]- 0313 Feb, [facility] [place] [facility] [address] [id number] [place] [address]- 6647 Feb, [facility] [place] [facility] [address] [id number] [place] [address]- 0957 Feb, [facility] [place] [facility] [address] [id number] [place] [address]- 9312 Feb, [facility] [place] [facility] [address] [id number] [place] [address]- 4893 Feb, [facility] [place] [facility] [address] [id number] [place] [address]- 3306 Jan, [facility] [place] [facility] [address] [id number] [place] [address]- 5657 Jan, [facility] [place] [facility] [address] [id number] [place] [address]- 6683 Jan, [facility] [place] [facility] [address] [id number] [place] [address]- 3193 Jan, [facility] [place] [facility] [address] [id number] [place] [address]- 7081 Jan, [facility] [place] [facility] [address] [id number] [place] [address]- 1489 Jan, [facility] [place] [facility] [address] [id number] [place] [address]- [address] Jan, [facility] [place] [facility] [address] [id number] [place] [address] Jan, [facility] [place] [facility] [address] [id number] [place] [address] Jan, [facility] [place] [facility] [address] [id number] [place] [address] Jan, [facility] [place] [facility] [address] [id number] [place] [address] Jan, [facility] [place] [facility] [address] [id number], [place] [address] Jan, [facility] [place] [facility] [address] [id number] [place] [address] 9468 Jan, [facility] [place] [facility] [address] [facility] [id number] [place] [address] Jan, [facility] [place] [facility] [address] [id number] [place] [address] Jan, [facility] [place] [facility] [address] [id number] [place] [address] Jan, [facility] [place] [facility] [address] [id number] [place] [id number] Jan, [facility] [place] [facility] [address] [id number] [place] [address] Jan, [facility] [place] [facility] [address] [id number] [place] [place] [address] Jan, [facility] [place] [facility] [address] [id number] [place] [address] Jan, [facility] [place] [facility] [address] [id number] [place] [address] Dec, [facility] [place] [facility] [address] [id number] [place] [address] Dec, [facility] [place] [facility] [address] [id number] [place] [address] Dec, [facility] [place] [facility] [address] [id number], [place] [address] Dec, [facility] [place] [facility] [address] [id number] [place] [address] Dec, [facility] [place] [facility] [address] [id number] [place] [address] Dec, [facility] [place] [facility] [address] [facility] [id number] [place] [address] Dec, [facility] [place] [facility] [address] [id number] [place] [address] Nov, [facility] [place] [facility] [address] [id number] [place] [address] Nov, [facility] [place] [facility] [address] [id number] [place] [address] Nov, [facility] [place] [facility] [address] [id number] [place] [address] Nov, [facility] [place] [facility] [address] [id number] [place] [address] Nov, [facility] [place] [facility] [address] [id number] [place] [address] Nov, [facility] [place] [facility] [address] [id number] [place] [address] Nov, [facility] [place] [facility] [address] [id number] [place] [address] Nov, [facility] [place] [facility] [address] [id number] [place] [address] Nov, [facility] [place] [facility] [address] [id number] [place] [address] Nov, [facility] [place] [facility] [address] [id number] [place] [address] 29 Oct, 2013 [facility] [place] [facility] [address] [id number] [place] [address] 29 Oct, 2013 [facility] [place] [facility] [address] [id number] [place] [address]- [address] 15 Oct, 2013 [facility] [place] [facility] [address] [id number] [place] [address]- [address] 15 Oct, 2013 [facility] [place] [facility] [address] [id number] [place] [address] 15 Oct, 2013 [facility] [place] [facility] [address] [id number] [place] [address] 15 Oct, 2013 [facility] [place] [facility] [address] [id number] [place] [address] 10 Oct, 2013 [facility] [place] [facility] [address] [id number] [place] [address] 10 Oct, 2013 [facility] [place] [facility] [address] [id number] [place] [address] Oct, [facility] [place] [facility] [address] [id number] [place] [address]- [address]83 Oct, [facility] [place] [facility] [address] [id number] [place] [address] Sep, [facility] [place] [facility] [address] [id number] [place] [address] Sep, [facility] [place] [facility] [address] [id number] [place] [address] Sep, [facility] [place] [facility] [address] [id number] [place] [address] Sep, [facility] [place] [facility] [address] [id number] [place] [address]- [address] Sep, [facility] [place] [facility] [address] [id number] [place] [address] Sep, [facility] [place] [facility] [address] [id number] [place] [address] Sep, [facility] [place] [facility] [address] [id number] [place] [address] 80[address] Sep, [facility] [place] [facility] [address] [id number] [place] [address] Sep, [facility] [place] [facility] [address] [id number] [place] [address] 30[address] Sep, [facility] [place] [facility] [address] [id number] [place] [address] 4[address] Aug, [facility] [place] [facility] [address] [id number] [place] [address] 7466 Aug, [facility] [place] [facility] [address] [id number] [place] [address] 8440 Aug, [facility] [place] [facility] [address] [id number] [place] [address] 2[address] Aug, [facility] [place] [facility] [address] [id number] [place] [address]- 0283 Aug, [facility] [place] [facility] [address] [id number] [place] [address]- 2452 Aug, [facility] [place] [facility] [address] [id number] [place] [address]- 2695 Aug, [facility] [place] [facility] [address] [id number] [place] [address]- 0702 Aug, [facility] [place] [facility] [address] [id number] [place] [address]- 6809 Aug, [facility] [place] [facility] [address] [id number] [place] [address]- 7441 Aug, [facility] [place] [facility] [address] [id number] [place] [address]- 1183 Aug, [facility] [place] [facility] [address] [id number] [place] [address]- 3198 Aug, [facility] [place] [facility] [address] [id number] [place] [address]- 2741 Jul, [facility] [place] [facility] [address] [id number] [place] [address]- 2538 Jul, [facility] [place] [facility] [address] [id number] [place] [address]- 2170 Jul, [facility] [place] [facility] [address] [id number] [place] [address]- 2742 Jul, [facility] [place] [facility] [address] [id number] [place] [address]- 1807 Jul, [facility] [place] [facility] [address] [id number] [place] [address]- 1738 Jul, [facility] [place] [facility] [address] [id number] [place] [address]- 4619 17 Jul, 2013 [facility] [place] [facility] [address] [id number] [place] [address]- 6055 Jul, [facility] [place] [facility] [address] [id number] [place] [address]- 0327 Jul, [facility] [place] [facility] [address] [id number] [place] [address]- 6994 Jul, [facility] [place] [facility] [address] [id number] [place] [address]- 4698 Jul, [facility] [place] [facility] [address] [id number] [place] [address]- 8934 Jul, [facility] [place] [facility] [address] [id number] [place] [address]- 2238 Jul, [facility] [place] [facility] [address] [id number] [place] [address]- 8419 Jul, [facility] [place] [facility] [address] [id number] [place] [address]- 3245 Jul, [facility] [place] [facility] [address] [id number] [place] [address]- 8333 Jul, [facility] [place] [facility] [address] [id number] [place] [address]- 6914 Jul, [facility] [place] [facility] [address] [id number] [place] [address]- 1345 June, [facility] [place] [facility] [address] [id number] [place] [address]- 0687 June, [facility] [place] [facility] [address] [id number] [place] [address]- 3330 June, [facility] [place] [facility] [address] [id number] [place] [address]- 3664 June, [facility] [place] [facility] [address] [id number] [place] [address]- 0305 June, [facility] [place] [facility] [address] [id number] [place] [address]- 2398 June, [facility] [place] [facility] [address] [id number] [place] [address]- 4282 June, [facility] [place] [facility] [address] [id number] [place] [address]- 5552 June, [facility] [place] [facility] [address] [id number] [place] [address]- 3104 June, [facility] [place] [facility] [address] [id number] [place] [address]- 1731 June, [facility] [place] [facility] [address] [id number] [place] [address]- 7641 June, [facility] [place] [facility] [address] [id number] [place] [address]- 1786 June, [facility] [place] [facility] [address] [id number] [place] [address]- 5556 June, [facility] [place] [facility] [address] [id number] [place] [address]- 1967 June, [facility] [place] [facility] [address] [id number] [place] [address]- 5001 June, [facility] [place] [facility] [address] [id number] [place] [address]- 4668 June, [facility] [place] [facility] [address] [id number] [place] [address]- 3738 June, [facility] [place] [facility] [address] [id number] [place] [address] 1918 June, [facility] [place] [facility] [address] [id number] [place] [address]- 4111 June, [facility] [place] [facility] [address] [id number] [place] [address]- 5409 June, [facility] [address] [id number] [place] [address]- 2090 June, [facility] [address] [id number] [place] [address]- 7476 June, [facility] [address] [id number] [place] [address]- 9002 June, [facility] [address] [id number] [place] [address]- 7165 June, [facility] [address] [id number] [place] [address]- 4061 June, [facility] [address] [id number] [place] [address]- 2016 June, [facility] [address] [id number] [place] [address]- 3159 June, [facility] [address] [id number] [place] [address]- 2334 June, [facility] [address] [id number] [place] [address]- 9457 June, [facility] [address] [id number] [place] [address]- 3438 June, [facility] [address] [id number] [place] [address]- 2329 June, [facility] [address] [id number] [place] [address]- 3991 June, [facility] [address] [id number] [place] [address]- 9516 May, [facility] [address] [id number] [place] [address]- 3390 May, [facility] [address] [id number] [place] [address]- 4563 May, [facility] [place] [facility] [address] [id number] [place] [address]- 6071 May, [facility] [place] [facility] [address] [id number] [place] [address]- 7048 May, [facility] [place] [facility] [address] [id number] [place] [address]- 6968 May, [facility] [place] [facility] [address] [id number] [place] [address]- 3092 May, [facility] [place] [facility] [address] [id number] [place] [address]- 6560 May, [facility] [place] [facility] [address] [id number] [place] [address]- 0837 May, [facility] [place] [facility] [address] [id number] [place] [address]- 8054 May, [facility] [place] [facility] [address] [id number] [place] [address]- 2648 May, [facility] [place] [facility] [address] [id number] [place] [address]- 7741 May, [facility] [place] [facility] [address] [id number] [place] [address]- 6834 May, [facility] [place] [facility] [address] [id number] [place] [address]- 3921 May, [facility] [place] [facility] [address] [id number] [place] [address]- 7939 May, [facility] [place] [facility] [address] [id number] [place] [address]- 3325 Apr, [facility] [place] [facility] [address] [id number] [place] [address]- 9067 Apr, [facility] [place] [facility] [address] [id number] [place] [address]- 0099 Apr, [facility] [place] [facility] [address] [id number] [place] [address]- 0650 Apr, [facility] [place] [facility] [address] [id number] [place] [address]- 0266 Apr, [facility] [place] [facility] [address] [id number] [place] [address]- 9236 Apr, [facility] [place] [facility] [address] [id number] [place] [address]- 4516 Mar, [facility] [place] [facility] [address] [id number] [place] [address]- 5821 Mar, [facility] [place] [facility] [address] [id number] [place] [address]- 8322 Mar, [facility] [place] [facility] [address] [id number] [place] [address]- 8866 Mar, [facility] [place] [facility] [address] [id number] [place] [address]- 2008 Mar, [facility] [place] [facility] [address] [id number] [place] [address]- 5667 Mar, [facility] [place] [facility] [address] [id number] [place] [address]- 1580 Mar, [facility] [place] [facility] [address] [facility] [id number] [place] [address]- 7898 Mar, [facility] [place] [facility] [address] [id number] [place] [address]- 0105 Feb, [facility] [place] [facility] [address] [id number] [place] [address]- 1570 Feb, [facility] [place] [facility] [address] [id number] [place] [address]- 6408 Feb, [facility] [place] [facility] [address] [id number] [place] [address]- 3235 Feb, [facility] [place] [facility] [address] [id number] [place] [address]- 7590 Feb, [facility] [place] [facility] [address] [id number] [place] [address]- 1937 Feb, [facility] [place] [facility] [address] [id number] [place] [address]- 1199 Feb, [facility] [place] [facility] [address] [id number] [place] [address]- 9058 Feb, [facility] [place] [facility] [address] [id number] [place] [address]- 6446 Feb, [facility] [address] [id number] [place] [address]- 2062 Feb, [facility] [place] [facility] [address] [id number] [place] [address]- 5423 Jan, [facility] [place] [facility] [address] [id number] [place] [address]- 3472 Jan, [facility] [place] [facility] [address] [id number] [place] [address]- 3355 Jan, [facility] [place] [facility] [address] [id number] [place] [address]- 9118 Jan, [facility] [place] [facility] [address] [id number] [place] [address]- 8399 Jan, [facility] [place] [facility] [address] [id number] [place] [address]- 2186 Jan, [facility] [place] [facility] [address] [id number] [place] [address]- 2551 Jan, [facility] [place] [facility] [address] [id number] [place] [address]- 4223 Jan, [facility] [place] [facility] [address] [id number] [place] [address]- 6728 Dec, [facility] [place] [facility] [address] [id number] [place] [address]- 4638 Dec, [facility] [place] [facility] [address] [id number], [place] [address]- 1605 Dec, [facility] [place] [facility] [address] [id number] [place] [address]- 9220 Dec, [facility] [place] [facility] [address] [id number][place] 3419 Dec, [facility] [place] [facility] [address] [id number] [place] [address]- 5523 Dec, [facility] [place] [facility] [address] [id number] [place] [address]- 9539 Dec, [facility] [place] [facility] [address] [id number] [place] [address]- 6271 Dec, [facility] [place] [facility] [address] [id number] [place] [address]- 7662 Nov, [facility] [place] [facility] [address] [id number] [place] [address]- 7842 Nov, [facility] [place] [facility] [address] [id number] [place] [address]- 3015 Nov, [facility] [place] [facility] [address] [id number], [place] [address]- 2062 Nov, [facility] [place] [facility] [address] [id number], [place] [address]- 0404 Nov, [facility] [place] [facility] [address] [id number], [place] [address]- 8768 Nov, [facility] [place] [facility] [address] [id number], [place] [address]- 5619 07 Nov, 2012 [facility] [place] [facility] [address] [id number], [place] [address]- 0565 10 Oct, 2012 [facility] [place] [facility] [address] [id number] [place] [address]- 6871 10 Oct, 2012 [facility] [place] [facility] [address] [id number] [place] [address]- 0951 05 Oct, 2012 [facility] [place] [facility] [address] [id number] [place] [address]- 9077 Sep, [facility] [address] [id number] [place] [address]- 6958 Sep, [facility] [place] [facility] [address] [id number] [place] [address]- 5836 Sep, [facility] [place] [facility] [address] [id number] [place] [address]- 9606 Sep, [facility] [place] [facility] [address] [id number] [place] [address]- 9268 Aug, [facility] [place] [facility] [address] [id number] [place] [address]- 6865 Aug, [facility] [place] [facility] [address] [id number] [place] [address]- 8895 Aug, [facility] [place] [facility] [address] [id number] [place] [address]- 5346 Aug, [facility] [address] [id number] [place] [address]- 4742 Aug, [facility] [place] [facility] [address] [id number] [place] [address]- 8567 Jul, [facility] [place] [facility] [address] [id number] [place] [address]- 5668 Jul, [facility] [place] [facility] [address] [id number] [place] [address]- 4248 Jul, [facility] [place] [facility] [address] [id number] [place] [address]- 6850 Jul, [facility] [place] [facility] [address] [id number] [place] [address]- 6701 Jul, [facility] [place] [facility] [address] [id number] [place] [address]- 7336 June, [facility] [place] [facility] [address] [id number] [place] [address]- 0275 June, [facility] [address] [id number] [place] [address]- 4268 June, [facility] [address] [id number] [place] [address]- 0028 June, [facility] [address] [id number] [place]142 June, [facility] [address] [id number] [place] [address]- 3787 May, [facility] [address] [id number] [place] [address]- 8147 May, [facility] [address] [id number] [place] [address]- 9876 May, [facility] [address] [id number] [place] [address]- 7594 May, [facility] [address] [id number] [place] [address]- 4563 May, [facility] [address] [id number] [place] [address]- 6230 May, [facility] [address] [id number] [place] [address]- 5818 May, [facility] [place] [facility] [address] [id number] [place] [address]- 8779 Apr, [facility] [place] [facility] [address] [id number], [place] [address]- 1970 Apr, [facility] [place] [facility] [address] [id number] [place] [address]- 0861 Apr, [facility] [place] [facility] [address] [id number] [place] [address]- 6212 Mar, [facility] [place] [facility] [address] [id number] [place] [address]- 3702 Mar, [facility] [place] [facility] [address] [id number] [place] [address]- 6750 20 Mar, 2012 [facility] [address] [id number] [place] [address]- 9086 19 Mar, 2012 [facility] [address] [id number] [place] [address] 2546 13 Mar, 2012 [facility] [address] [id number] [place] [address] 2546 13 Mar, 2012 [facility] [address] [id number] [place] [address] 254 07 Mar, 2012 [facility] [address] [id number] [place] [address]- 5736 07 Mar, 2012 [facility] [address] [id number] [place] [address]- 9907 31 Feb, 2012 [facility] [address] [id number] [place] [address]- 5607 29 Feb, 2012 [facility] [address] [id number] [place] [address]- 1829 Feb, [facility] [address] [id number] [place] [address]- 5146 Feb, [facility] [address] [id number] [place] [address]- 1028 18 Feb, 2012 [facility] [address] [id number] [place] [address] 2548 15 Feb, 2012 [facility] [address] [id number] [place] [address] 2547 14 Feb, 2012 [facility] [place] [facility] [address] [id number] [place] [address] 2546 Jan, [facility] [place] [facility] [address] [id number] [place] [address] 2546 Jan, [facility] [address] [id number] [place] [address]- 1897 Jan, [facility] [place] [facility] [address] [id number] [place] [address]- 3453 Jan, [facility] [place] [facility] [address] [id number] [place] [address]- 4246 Jan, [facility] [place] [facility] [address] [id number] [place] [address]- 7526 Jan, [facility] [place] [facility] [address] [id number] [place] [address]- 9567 Jan, [facility] [place] [facility] [address] [id number] [place] [address]- 7480 Jan, [facility] [place] [facility] [address] [id number] [place] [address]- 3506 Jan, [facility] [place] [facility] [address] [id number] [place] [address]- 6869 Jan, [facility] [place] [facility] [address] [id number] [place] [address]- 9864 Jan, [facility] [place] [facility] [address] [id number] [place] [address]- 2718 Jan, [facility] [place] [facility] [address] [id number] [place] [address]- 9771 Jan, [facility] [place] [facility] [address] [id number] [place] [address]- 3293 Jan, [facility] [place] [facility] [address] [id number], [place] [address]- 1915 Dec, [facility] [place] [facility] [address] [id number] [place] [address]- 3624 Dec, [facility] [place] [facility] [address] [id number] [place] [address]- 9744 Dec, [facility] [place] [facility] [address] [id number] [place] [address]- 9255 Dec, [facility] [place] [facility] [address] [id number] [place] [address]- 5251 Dec, [facility] [place] [facility] [address] [id number] [place] [address]- 0540 Dec, [facility] [place] [facility] [address] [id number] [place] [address]- 0796 Dec, [facility] [place] [facility] [address] [id number] [place] [address]- 2106 Dec, [facility] [place] [facility] [address] [id number] [place] [address]- 2654 Dec, [facility] [place] [facility] [address] [id number] [place] [address]- 6691 Dec, [facility] [place] [facility] [address] [id number] [place] [address]- 0358 Dec, [facility] [place] [facility] [address] [id number] [place] [address]- 8277 Dec, [facility] [place] [facility] [address] [id number] [place] [address]- 1464 Dec, [facility] [place] [facility] [address] [id number] [place] [address] Dec, [facility] [place] [facility] [address] [id number] [place] [address] Dec, [facility] [place] [facility] [address] [id number] [place] [address] Dec, [facility] [place] [facility] [address] [id number] [place] [address] Dec, [facility] [place] [facility] [address] [id number] [place] [address] Dec, [facility] [place] [facility] [address] [id number] [place] [address] Dec, [facility] [place] [facility] [address] [id number] [place] [address] Dec, [facility] [place] [facility] [address] [id number] [place] [address] 31 Nov, 2011 [facility] [place] [facility] [address] [id number] [place] [address] 31 Nov, 2011 [facility] [place] [facility] [address] [id number] [place] [address] 30 Nov, 2011 [facility] [place] [facility] [address] [id number] [place] [address] Nov, [facility] [place] [facility] [address] [id number] [place] [address] Nov, [facility] [place] [facility] [address] [id number] [place] [address] 24 Nov, 2011 [facility] [place] [facility] [address] [id number] [place] [address] Nov, [facility] [place] [facility] [address] [id number] [place] [address] 15 Nov, 2011 [facility] [place] [facility] [address] [id number] [place] [address]65 Nov, [facility] [place] [facility] [address] [id number] [place] [address] Nov, [facility] [place] [facility] [address] [id number] [place] [address] Nov, [facility] [place] [facility] [address] [id number] [place] [address] Nov, [facility] [place] [facility] [address] [id number] [place] [address]59 Nov, [facility] [place] [facility] [address] [id number] [place] [address] 30 Oct, 2011 [facility] [place] [facility] [address] [id number] [place] [address]276 27 Oct, 2011 [facility] [place] [facility] [address] [id number] [place] [address]- [address] 24 Oct, 2011 [facility] [place] [facility] [address] [id number] [place] [address]- 9465 20 Oct, 2011 [facility] [place] [facility] [address] [id number] [place] [address] 3466 Oct, [facility] [place] [facility] [address] [id number] [place] [address] 8976 Oct, [facility] [place] [facility] [address] [id number] [place] [address] Sep, [facility] [place] [facility] [address] [id number] [place] [address] Sep, [facility] [place] [facility] [address] [id number] [place] [address] Sep, [facility] [place] [facility] [address] [id number] [place] [address] Sep, [facility] [place] [facility] [address] [id number] [place] [address] Aug, [facility] [place] [facility] [address] [id number] [place] [address] Aug, [facility] [place] [facility] [address] [id number] [place] [address] 0479 Aug, [facility] [place] [facility] [address] [id number] [place] [address] 45[address] Jul, [facility] [place] [facility] [address] [id number] [place] [address] Jul, [facility] [place] [facility] [address] [id number] [place] [address] 39[address] Jul, [facility] [place] [facility] [address] [id number] [place] [address] 59[address] Jul, [facility] [place] [facility] [address] [id number] [place] [address] June, [facility] [place] [facility] [address] [id number] [place] [address] 139[address] June, [facility] [address] [id number] [place] [address] 7767 June, [facility] [address] [id number] [place] [address] 8714 June, [facility] [address] [id number] [place] [address] 2718 June, [facility] [address] [id number] [place] [address]- 7406 June, [facility] [address] [id number] [place] [address] May, [facility] [address] [id number] [place] [address] 4460 May, [facility] [address] [id number] [place] [address]- 65[address] May, [facility] [address] [id number] [place] [address] 0[address] May, [facility] [address] [id number] [place] [address]- 4436 May, [facility] [address] [id number] [place] [address]278 May, [facility] [address] [id number] [place] [address] 9829 May, [facility] [address] [id number] [place] [address]- 9135 May, [facility] [place] [facility] [address] [id number] [place] [address] 9506 May, [facility] [address] [id number] [place] [address] 8948 Apr, [facility] [address] [id number] [place] [address] Mar, [facility] [address] [id number] [place] [address]- 4299 27 Mar, 2011 [facility] [place] [facility] [address] [id number] [place] [address]- 4[address] 21 Mar, 2011 [facility] [place] [facility] [address] [id number] [place] [address]- 6226 10 Mar, 2011 [facility] [place] [facility] [address] [id number] [place] [address] 45[address] Feb, [facility] [place] [facility] [address] [id number] [place] [address] Feb, [facility] [place] [facility] [address] [id number] [place] [address] Feb, [facility] [place] [facility] [address] [id number] [place] [address] 1325 Jan, [facility] [place] [facility] [address] [id number] [place] [address]- 3445 Jan, [facility] [place] [facility] [address] [id number] [place] [address] 3810 Jan, [facility] [place] [facility] [address] [id number], [place] [address] 29 Dec, 2010 [facility] [place] [facility] [address] [id number], [place] [address] Dec, [facility] [place] [facility] [address] [id number], [place] [address] 16 Dec, 2010 [facility] [place] [facility] [address] [id number] [place] [address]- 9031 15 Dec, 2010 [facility] [place] [facility] [address] [id number], [place] [address] 31 Nov, 2010 [facility] [place] [facility] [address] [id number] [place] [address]- 1874 31 Nov, 2010 [facility] [place] [facility] [address] [id number] [place] [address]- 4841 19 Nov, 2010 [facility] [place] [facility] [address] [id number] [place] [address]- 2895 18 Nov, 2010 [facility] [place] [facility] [address] [id number] [place] [address]- 6326 13 Oct, 2010 [facility] [place] [facility] [address] [id number] [place] [address]- 6566 20 Jul, 2010 [facility] [place] [facility] [address] [id number] [place] [address]- 4770 Jan, [facility] [place] [facility] [address] [id number] [place] [address]- 8646 30 Dec, 2009 [facility] [place] [facility] [address] [id number] [place] [address]- 4589 Dec, [facility] [place] [facility] [address] [address] [id number] [place] [address] Dec, [facility] [place] [facility] [address] [id number] [place] [address] Dec, [facility] [place] [facility] [address] [id number] [place] [address] Dec, [facility] [place] [facility] [address] [facility] [id number] [place] [address] Dec, [facility] [place] [facility] [address] [id number] [place] [address] Nov, [facility] [place] [facility] [address] [id number] [place] [address] Nov, [facility] [place] [facility] [address] [id number] [place] [address] Nov, [facility] [place] [facility] [address] [id number] [place] [address] Apr, [facility] [place] [facility] [address] [facility] [id number] [place] [address] Apr, [facility] [place] [facility] [address] [id number] [place] [address] 29 Jan, 2009 [facility] [place] [facility] [address] [id number] [place] [address] 28 Jan, 2009 [facility] [place] [facility] [address] [id number] [place] [address] 23 Jan, 2009 [facility] [place] [facility] [address] [id number] [place] [address] 17 Jan, 2009 [facility] [place] [facility] [address] [id number] [place] [address] 14 Jan, 2009 [facility] [place] [facility] [address] [id number] [place] [address] Jan, [facility] [place] [facility] [address] [id number] [place] [address] 30 Dec, 2008 [facility] [place] [facility] [address] [id number] [place] [address] Dec, [facility] [place] [facility] [address] [id number] [place] [address] 18 Dec, 2008 [facility] [place] [facility] [address] [id number] [place] [address] Dec, [facility] [place] [facility] [address] [facility] [id number] [place] [address] Dec, [facility] [place] [facility] [address] [id number], [place] [address] Dec, [facility] [place] [facility] [address] [id number] [place] [address] 28 Nov, 2008 [facility] [place] [facility] [address] [id number] [place] [address] 27 Nov, 2008 [facility] [place] [facility] [address] [id number], [place] [address] 15 Aug, 2008 [facility] [place] [facility] [address] [id number], [place] [address] Jul, [facility] [address] [facility] [id number] [place] [address] June, [facility] [address] [facility] [id number] [place] [address] Apr, IMMUNIZATIONS No Known Immunizations SOCIAL HISTORY Never Assessed REASON FOR VISIT Refill Request PLAN OF CARE VITAL SIGNS MEDICATIONS Medication Instructions Dosage Frequency Start Date End Date Duration Status Duloxetine HCl 60 mg Orally 2 times a day 1 capsule 12h 90 days Active Meloxicam 7.5 MG orally 2 times a day 1 tablet 12h 90 days Active RESULTS No Results PROCEDURES No [...] of loosened hardware/hip replacement ( [facility] in [place]) 09/2008 Hospitalization History in pt rehab s/p left hip repair 09/2008-11/[address] [facility] 07/2009
--- OUTSIDE RECORDS SUMMARY | 2017-10-26 13:45 | XMS REPORT ---
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 Active 972459001 Problem Meningioma D32.9 Active 857025081 Problem Generalized osteoarthritis M15.9 Active 809722293 Problem Dementia without behavioral disturbance, unspecified dementia type F03.90 Active 18342637 Problem Debility R53.81 Active 20045858 Problem At risk for falls Z91.81 Active 740176723 Problem Other chronic pain G89.29 Active 59660184 Problem Panic attacks F41.0 Active 984005088 Problem Acute drug withdrawal syndrome without complication F19.230 Active 144841597 Problem Anxiety F41.9 Active 14228617 ALLERGIES No Information ENCOUNTERS Encounter Location Date Diagnosis [facility] [id number] [address] Nov, [facility] [address], [place] [address] Aug, [facility] [id number], [place] [address] Aug, Dementia without behavioral disturbance, unspecified dementia type F03.90 [facility] [id number], [place] [address] Aug, Dementia without behavioral disturbance, unspecified dementia type F03.90 and Anxiety F41.9 [facility] [address], [place] [address] Jul, Dementia without behavioral disturbance, unspecified dementia type F03.90 [facility] [id number] [place] [address] 85364- 6111 Jul, 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 ; Generalized osteoarthritis M15.9 ; Other chronic pain G89.29 ; At risk for falls Z91.81 and Debility R53.81 [facility] [id number] [place] [address] 45012- 3285 Jul, [facility] [id number] [place] [address] 02107- 1763 June, Dementia without behavioral disturbance, unspecified dementia type F03.90 [facility] [id number] [place] [address] 11132- 5653 June, [facility] [id number] [place] [address] 02618- 2836 June, [facility] [id number] [place] [address] 56887- 0629 June, [facility] [id number] [place] [address] 97534- 9629 June, Dementia without behavioral disturbance, unspecified dementia type F03.90 and Anxiety F41.9 [facility] [address] [place] [address] 72842- 9938 May, [facility] [id number] [place] [address] 65279- 9913 May, [facility] [id number] [place] [address] 52290 -5515 May, Anxiety F41.9 ; Acute drug withdrawal syndrome without complication F19.230 and Abdominal pain, unspecified abdominal location R10.9 [facility] [address], [place] [address]- 8659 May, Panic attacks F41.0 [facility] [id number] [place] [address] 22158- 0747 May, Other chronic pain G89.29 and Generalized anxiety disorder F41.1 [facility] [id number] [place] [address] 15223- 3821 Apr, Housing problems Z59.9 and Panic attacks F41.0 [facility] [id number] [place] [address] 39631- 2479 Mar, Panic attacks F41.0 [facility] [id number] [place] [address] 21739- 4513 Feb, [facility] [address] [address]- 6866 Feb, Panic attacks F41.0 [facility] [id number] [place] [address] 66315- 1289 Feb, Pain in right knee M25.561 ; Pain in left knee M25.562 ; Other chronic pain G89.29 ; Housing problems Z59.9 ; Dementia without behavioral disturbance, unspecified dementia type F03.90 ; Generalized anxiety disorder F41.1 and Advance directive declined by patient Z78.9 [facility] [id number] [place] [address] 23404- 8982 Jan, Panic attacks F41.0 [facility] [id number] [place] [address] 67229- 4462 Jan, Panic attacks F41.0 [facility] [id number] [place] [address] 48830- 1652 Dec, Panic attacks F41.0 [facility] [address] 9[address]20 -9535 Nov, Allergic contact dermatitis due to cosmetics L23.2 [facility] [id number] [place] [address] 90447- 5841 Nov, Panic attacks F41.0 [facility] [address] [place] [address] 08 Oct, 2016 Panic attacks F41.0 [facility] [id number] [place] [address] 82425- 8812 Sep, Panic attacks F41.0 ; Insect bite, initial encounter W57.XXXA and 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 [id number] [place] [address] 06802 -3592 June, Seasonal allergic rhinitis due to other allergic trigger J30.89 [facility] [id number] [place] [address] 36099- 0385 June, [facility] [id number] [place] [address] 78857- 6777 June, [facility] [id number] [place] [address] 39378 -6367 June, Dysuria R30.0 and RLQ abdominal pain R10.31 [facility] [id number] [place] [address] 62351- 7726 May, Generalized anxiety disorder F41.1 ; Generalized osteoarthritis M15.9 and Dementia without behavioral disturbance, unspecified dementia type F03.90 [facility] [id number] [place] [address] 06541- 6871 May, [facility] [id number] [place] [address] 35105- 6875 May, [facility] [id number] [place] [address] 31361- 0602 May, [facility] [address], [place] [address]- 4446 Apr, [facility] [address] [place] [address], [place] [address]- 3499 Apr, Generalized anxiety disorder F41.1 [facility] [address] [address]- 4938 Apr, [facility] [id number] [place] [address] 95976- 5564 Apr, [facility] [address] [place] [address], [place] [address]- 5808 Apr, [facility] [id number] [place] [address] 79800- 1968 Apr, Generalized anxiety disorder F41.1 [facility] [id number] [place] [address] 09515- 2373 Mar, [facility] [address], [place] [address]- 3150 Mar, [facility] [address], [place] [address]- 4718 Mar, [facility] [address], [place] [address]- 6509 Mar, [facility] [address], [place] [address]- 3281 Mar, Generalized anxiety disorder F41.1 [facility] [address], [place] [address]- 9308 Feb, Anxiety disorder, unspecified F41.9 [facility] [address], [place] [address]- 2509 Feb, [facility] [address], [place] [address]- 1731 Feb, [facility] [address], [place] [address]- 2760 Feb, [facility] [id number] [place] [address] 20847 -7142 Feb, Urinary frequency R35.0 and Acute cystitis without hematuria N30.00 [facility] [id number] [place] [address] 14344- 3262 Feb, [facility] [id number] [place] [address] 23073- 0691 Jan, [facility] [id number] [place] [address] 12519- 3607 Jan, [facility] [id number] [place] [address] 75492- 4775 Dec, [facility] [id number] [place] [address] 44970- 2946 Dec, [facility] [id number] [place] [address] 34012- 3253 Dec, Edema, unspecified type R60.9 [facility] [id number] [place] [address] 64372- 1829 Dec, [facility] [id number] [place] [address] 50432- 7301 Dec, [facility] [id number] [place] [address] 72921- 3548 30 Oct, 2015 Generalized anxiety disorder F41.1 [facility] [address] [place] [address] 31045- 4228 20 Oct, 2015 [facility] [id number] [place] [address] 26057- 9556 16 Oct, 2015 [facility] [id number] [place] [address] 01841- 6176 15 Oct, 2015 [facility] [address] [place] [address] 11131- 7208 06 Oct, 2015 [facility] [address], [place] [address]- 8481 Aug, Anxiety disorder, unspecified F41.9 [facility] [address], [place] [address]- 8024 Jul, Anxiety disorder, unspecified F41.9 [facility] [place] [address] [address]- 2529 Jul, Generalized anxiety disorder F41.1 [facility] [address], [place] [address]- 8695 Jul, [facility] [id number] [place] [address] 93213- 2805 June, [facility] [place] [address] [place] [address] 50222- 3567 June, [facility] [id number] [place] [address] 55948- 7616 June, [facility] [address], [place] [address]- 9586 June, [facility] [address] [place] [address] 48822- 1351 May, [facility] [address], [place] [address] -6289 May, Dementia without behavioral disturbance, unspecified dementia type F03.90 and Generalized osteoarthritis M15.9 [facility] [address], [place] [address]- 8438 May, Generalized osteoarthritis M15.9 and 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 [facility] [address], [place] [address]- 9758 Apr, [facility] [address], [place] [address]- 7919 Apr, [facility] [address], [place] [address]- 6266 Apr, [facility] [id number] [place] [address] 25913- 2871 Mar, [facility] [address] 81005- 1211 Mar, [place] [address] 00490- 0654 Mar, Generalized anxiety disorder F41.1 [place] [address] 08099- 3246 Feb, Other infective acute otitis externa of right ear H60.[address] 41868- 8984 Dec, Dysuria R30.0 ; Generalized osteoarthritis M15.9 and Gastroesophageal reflux disease, esophagitis presence not specified K21.[address] 97077- 9179 Dec, [place] [address] 31595- 3426 Dec, Generalized anxiety disorder F41.1 ; Encounter for immunization Z23 and Dementia F03.90 [place] [place] [id number] [place] [address] 72791- 0930 Nov, [place] [id number] [place] [address] 10036- 4697 Oct, [place] [address] 15248- 2259 24 Oct, 2014 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 ; Chronic pain 338.29 ; Anxiety 300.00 and Dementia 294.[address] 16923- 3218 Oct, [place] [id number] [place] [address] 74503- 3595 Aug, Generalized anxiety disorder 300.02 and Dementia 294.20 [place] [place] [address], [place] [address]- 0156 Aug, [facility] [address], [place] [address]- 6167 Aug, Anxiety 300.00 and Chronic pain 338.29 [facility] [address], [place] [address]- 0050 Jul, [facility] [id number] [place] [address] 20432- 2196 Jul, [facility] [address], [place] [address]- 0732 June, [facility] [id number] [place] [address] 01938- 4036 June, Anxiety, generalized 300.02 ; Dementia 294.20 and No condition on [place] II V71.09 [facility] [id number], [place] [address]- 8777 May, [facility] [address] [address]- 1808 May, [facility] [address], [place] [address]- 0716 Apr, [facility] [address] [address]- 3796 Apr, [facility] [address], [place] [address]- 7926 Apr, [facility] [address] [address]- 0544 Apr, [facility] [address], [place] [address]- 1318 Apr, [facility] [id number], [place] [address]- 2546 Apr, [facility] [address] 1796 Apr, [facility] [place] [facility] [address] [id number] [place] [address]- 0301 Apr, [facility] [place] [facility] [address] [id number] [place] [address]- 2116 Apr, [facility] [place] [facility] [address] [id number] [place] [address]- 5281 Apr, [facility] [place] [facility] [address] [id number] [place] [address]- 1394 Apr, [facility] [place] [facility] [address] [id number] [place] [address]- 1225 Apr, [facility] [place] [facility] [address] [id number] [place] [address]- 9897 Apr, [facility] [place] [facility] [address] [id number] [place] [address]- 4633 Apr, [facility] [place] [facility] [address] [id number] [place] [address]- 6359 Apr, [facility] [place] [facility] [address] [id number] [place] [address]- 0698 Apr, [facility] [place] [facility] [address] [id number] [place] [address]- 6735 Mar, 2014 [facility] [place] [facility] [address] [id number] [address]- 6939 Mar, 2014 [facility] [place] [facility] [address] [id number] [address]- 9363 Mar, 2014 [facility] [place] [facility] [address] [id number] [place] [address]- 3387 Mar, 2014 [facility] [place] [facility] [address] [id number] [place] [address]- 0488 Mar, 2014 [facility] [place] [facility] [address] [id number] [place] [address]- 8142 Mar, 2014 [facility] [place] [facility] [address] [id number] [place] [address]- 6783 23 Mar, 2014 [facility] [place] [facility] [address] [id number] [place] [address]- 8506 23 Mar, 2014 [facility] [place] [facility] [address] [id number] [place] [address]- 2546 20 Mar, 2014 [facility] [place] [facility] [address] [id number] [place] [address]- 2426 20 Mar, 2014 [facility] [place] [facility] [address] [id number] [place] [address]- 2543 18 Mar, 2014 [facility] [place] [facility] [address] [id number] [place] [address]- 5284 18 Mar, 2014 [facility] [place] [facility] [address] [facility] [id number] [place] [address]- 1649 17 Mar, 2014 [facility] [place] [facility] [address] [facility] [id number] [place] [address]- 4053 17 Mar, 2014 [facility] [place] [facility] [address] [facility] [id number] [place] [address]- 7082 17 Mar, 2014 [facility] [place] [facility] [address] [facility] [id number] [place] [address]- 9504 17 Mar, 2014 [facility] [place] [facility] [address] [facility] [id number] [place] [address]- 6760 13 Mar, 2014 [facility] [place] [facility] [address] [facility] [id number] [address]- 5621 13 Mar, 2014 [facility] [place] [facility] [address] [facility] [id number] [place] [address]- 2543 13 Mar, 2014 [facility] [place] [facility] [address] [facility] [id number] [place] [address]- 9074 13 Mar, 2014 [facility] [place] [facility] [address] [facility] [id number] [place] [address]- 6151 12 Mar, 2014 [facility] [place] [facility] [address] [facility] [id number] [place] [address] 12 Mar, 2014 [facility] [place] [facility] [address] [id number] [place] [address] Mar, 2014 [facility] [place] [facility] [address] [id number] [place] [address] Mar, 2014 [facility] [place] [facility] [address] [id number] [place] [address] Mar, [facility] [place] [facility] [address] [id number] [place] [address] Mar, [facility] [place] [facility] [address] [id number] [place] [address] Feb, [facility] [place] [facility] [address] [id number] [place] [address] Feb, [facility] [place] [facility] [address] [id number] [place] [address] Feb, [facility] [place] [facility] [address] [id number] [place] [address] Feb, [facility] [place] [facility] [address] [id number] [place] [address] Feb, [facility] [place] [facility] [address] [facility] [id number] [place] [address] Feb, [facility] [place] [facility] [address] [id number] [place] [address] Feb, [facility] [place] [facility] [address] [id number] [place] [address]40 Feb, [facility] [place] [facility] [address] [id number] [place] [address] Feb, [facility] [place] [facility] [address] [id number] [place] [address] Feb, [facility] [place] [facility] [address] [id number] [place] [address]047 Feb, [facility] [place] [facility] [address] [id number] [place] [address]18 Feb, [facility] [place] [facility] [address] [id number] [place] [address]658 Feb, [facility] [place] [facility] [address] [id number] [place] [address] Feb, [facility] [place] [facility] [address] [id number] [place] [address] 15[address] Feb, [facility] [place] [facility] [address] [id number] [place] [address] Jan, [facility] [place] [facility] [address] [id number] [place] [address] Jan, [facility] [place] [facility] [address] [id number] [place] [address] Jan, [facility] [place] [facility] [address] [id number] [place] [address] 39[address] Jan, [facility] [place] [facility] [address] [id number] [place] [address] Jan, [facility] [place] [facility] [address] [id number] [place] [address] Jan, [facility] [place] [facility] [address] [id number] [place] [address] Jan, [facility] [place] [facility] [address] [id number] [place] [address] Jan, [facility] [place] [facility] [address] [id number] [place] [address] Jan, [facility] [place] [facility] [address] [id number] [place] [address] Jan, [facility] [place] [facility] [address] [id number] [place] [address]98 Jan, [facility] [place] [facility] [address] [id number] [address] Jan, [facility] [place] [facility] [address] [id number] [place] [address] Jan, [facility] [place] [facility] [address] [facility] [id number] [place] [address] Jan, [facility] [place] [facility] [address] [id number] [place] [address] Jan, [facility] [place] [facility] [address] [id number] [place] [address] Jan, [facility] [place] [facility] [address] [id number] [place] [id number] Jan, [facility] [place] [facility] [address] [id number] [place] Jan, [facility] [place] [facility] [id number] [address] [address] Jan, [facility] [place] [facility] [address] [id number] [place] [address]6 Jan, [facility] [place] [facility] [address] [id number] [place] [address] Dec, [facility] [place] [facility] [address] [id number] [place] [address] Dec, [facility] [place] [facility] [address] [id number] [place] [address] 1292 Dec, [facility] [place] [facility] [address] [id number] [address] 7983 Dec, [facility] [place] [facility] [address] [id number] [place] [address] 4462 Dec, [facility] [place] [facility] [address] [id number] [place] [address] 2010 Dec, [facility] [place] [facility] [address] [facility] [id number] [place] [address] Dec, [facility] [place] [facility] [address] [id number] [place] [address] 0792 Nov, [facility] [place] [facility] [address] [id number] [place] [address] 6205 Nov, [facility] [place] [facility] [address] [id number] [place] [address]- 3859 Nov, [facility] [place] [facility] [address] [id number] [place] [address]- 5281 Nov, [facility] [place] [facility] [address] [id number] [place] [address]- 7545 Nov, [facility] [place] [facility] [address] [id number] [place] [address]- 2863 Nov, [facility] [place] [facility] [address] [id number] [place] [address]- 8699 Nov, [facility] [place] [facility] [address] [id number] [place] [address]- 3262 Nov, [facility] [place] [facility] [address] [id number] [place] [address]- 0994 Nov, [facility] [place] [facility] [address] [id number] [place] [address]- 0028 Nov, [facility] [place] [facility] [address] [id number] [place] [address]- 9418 29 Oct, 2013 [facility] [place] [facility] [address] [id number] [place] [address]- 2549 29 Oct, 2013 [facility] [place] [facility] [address] [id number] [place] [address]- 2541 15 Oct, 2013 [facility] [place] [facility] [address] [id number] [place] [address]- 2546 15 Oct, 2013 [facility] [place] [facility] [address] [id number] [place] [address]- 2545 15 Oct, 2013 [facility] [place] [facility] [address] [id number] [place] [address]- 9549 15 Oct, 2013 [facility] [place] [facility] [address] [id number] [place] [address]- 2379 10 Oct, 2013 [facility] [place] [facility] [address] [id number] [place] [address]- 3418 10 Oct, 2013 [facility] [place] [facility] [address] [id number] [place] [address]- 4544 Oct, [facility] [place] [facility] [address] [id number] [place] [address]- 1319 Oct, [facility] [place] [facility] [address] [id number] [place] [address]- 4348 Sep, [facility] [place] [facility] [address] [id number] [place] [address]- 4703 Sep, [facility] [place] [facility] [address] [id number] [place] [address]- 0932 Sep, [facility] [place] [facility] [address] [id number] [place] [address]- 3807 Sep, [facility] [place] [facility] [address] [id number] [place] [address]- 8542 Sep, [facility] [place] [facility] [address] [id number] [place] [address]- 8264 Sep, [facility] [place] [facility] [address] [id number] [place] [address]- 0185 Sep, [facility] [place] [facility] [address] [id number] [place] [address]- 4332 Sep, [facility] [place] [facility] [address] [id number] [place] [address]- 2205 Sep, [facility] [place] [facility] [address] [id number] [place] [address]- 0353 Sep, [facility] [place] [facility] [address] [id number] [place] [address]- 3976 Aug, [facility] [place] [facility] [address] [id number] [place] [address]- 3983 Aug, [facility] [place] [facility] [address] [id number] [place] [address]- 4302 Aug, [facility] [place] [facility] [address] [id number] [place] [address]- 3382 Aug, [facility] [place] [facility] [address] [id number] [place] [address]- 6091 Aug, [facility] [place] [facility] [address] [id number] [place] [address]- 8264 Aug, [facility] [place] [facility] [address] [id number] [place] [address]- 8044 Aug, [facility] [place] [facility] [address] [id number] [place] [address]- 6952 Aug, [facility] [place] [facility] [address] [id number] [place] [address]- 1428 Aug, [facility] [place] [facility] [address] [id number] [place] [address]- 4142 Aug, [facility] [place] [facility] [address] [id number] [place] [address]- 9283 Aug, [facility] [place] [facility] [address] [id number] [place] [address]- 1379 Aug, [facility] [place] [facility] [address] [id number] [place] [address]- 0534 Jul, [facility] [place] [facility] [address] [id number] [place] [address]- 7964 Jul, [facility] [place] [facility] [address] [id number] [place] [address]- 8051 Jul, [facility] [place] [facility] [address] [id number] [place] [address]- 6349 Jul, [facility] [place] [facility] [address] [id number] [place] [address]- 8616 Jul, [facility] [place] [facility] [address] [id number] [place] [address]- 3843 Jul, [facility] [place] [facility] [address] [id number] [place] [address]- 6646 17 Jul, 2013 [facility] [place] [facility] [address] [id number] [place] [address]- 2652 Jul, [facility] [place] [facility] [address] [id number] [place] [address]- 4560 Jul, [facility] [place] [facility] [address] [id number] [place] [address]- 7996 Jul, [facility] [place] [facility] [address] [id number] [place] [address]- 5006 Jul, [facility] [place] [facility] [address] [id number] [place] [address]- 3704 Jul, [facility] [place] [facility] [address] [id number] [place] [address]- 2784 Jul, [facility] [place] [facility] [address] [id number] [place] [address]- 2155 Jul, [facility] [place] [facility] [address] [id number] [place] [address]- 5133 Jul, [facility] [place] [facility] [address] [id number] [place] [address]- 8405 Jul, [facility] [place] [facility] [address] [id number] [place] [address]- 3502 Jul, [facility] [place] [facility] [address] [id number] [place] [address]- 4489 June, [facility] [place] [facility] [address] [id number] [place] [address]- 3470 June, [facility] [place] [facility] [address] [id number] [place] [address]- 0480 June, [facility] [place] [facility] [address] [id number] [place] [address]- 0474 June, [facility] [place] [facility] [address] [id number] [place] [address]- 1272 June, [facility] [place] [facility] [address] [id number] [place] [address]- 6487 June, [facility] [place] [facility] [address] [id number] [place] [address]- 7994 June, [facility] [place] [facility] [address] [id number] [place] [address]- 5637 June, [facility] [place] [facility] [address] [id number] [place] [address]- 4857 June, [facility] [place] [facility] [address] [id number] [place] [address]- 0326 June, [facility] [place] [facility] [address] [id number] [place] [address]- 3479 June, [facility] [place] [facility] [address] [id number] [place] [address]- 8516 June, [facility] [place] [facility] [address] [id number] [place] [address]- 8133 June, [facility] [place] [facility] [address] [id number] [place] [address]- 7953 June, [facility] [place] [facility] [address] [id number] [place] [address]- 6298 June, [facility] [place] [facility] [address] [id number] [place] [address]- 5362 June, [facility] [place] [facility] [address] [id number] [place] [address]- 2878 June, [facility] [place] [facility] [address] [id number] [place] [address]- 4457 June, [facility] [place] [facility] [address] [id number] [place] [address]- 2265 June, [facility] [place] [facility] [address] [id number] [place] [address]- 8880 June, [facility] [address] [id number] [place] [address]- 3379 June, [facility] [address] [id number] [place] [address]- 2360 June, [facility] [address] [id number] [place] [address]- 2714 June, [facility] [address] [id number] [place] [address]- 5025 June, [facility] [address] [id number] [place] [address]- 2388 June, [facility] [address] [id number] [place] [address]- 9931 June, [facility] [address] [id number] [place] [address]- 2111 June, [facility] [address] [id number] [place] [address]- 3329 June, [facility] [address] [id number] [place] [address]- 1521 June, [facility] [address] [id number] [place] [address]- 5161 June, [facility] [address] [id number] [place] [address]- 8105 June, [facility] [address] [id number] [place] [address]- 9790 June, [facility] [address] [id number] [place] [address]- 7410 May, [facility] [address] [id number] [place] [address]- 8558 May, [facility] [address] [id number] [place] [address]- 8043 May, [facility] [place] [facility] [address] [id number] [place] [address]- 1607 May, [facility] [place] [facility] [address] [id number] [place] [address]- 5774 May, [facility] [place] [facility] [address] [id number] [place] [address]- 0818 May, [facility] [place] [facility] [address] [id number] [place] [address]- 6341 May, [facility] [place] [facility] [address] [id number] [place] [address]- 6806 May, [facility] [place] [facility] [address] [id number] [place] [address]- 6941 May, [facility] [place] [facility] [address] [id number] [place] [address]- 7965 May, [facility] [place] [facility] [address] [id number] [place] [address]- 0214 May, [facility] [place] [facility] [address] [id number] [place] [address]- 5734 May, [facility] [place] [facility] [address] [id number] [place] [address]- 5793 May, [facility] [place] [facility] [address] [id number] [place] [address]- 4215 May, [facility] [place] [facility] [address] [id number] [place] [address]- 2911 May, [facility] [place] [facility] [address] [id number] [place] [address]- 1599 Apr, [facility] [place] [facility] [address] [id number] [place] [address]- 2910 Apr, [facility] [place] [facility] [address] [id number] [place] [address]- 2393 Apr, [facility] [place] [facility] [address] [id number] [place] [address]- 1907 Apr, [facility] [place] [facility] [address] [id number] [place] [address]- 1766 Apr, [facility] [place] [facility] [address] [id number] [place] [address]- 4536 Apr, [facility] [place] [facility] [address] [id number] [place] [address]- 8396 Mar, [facility] [place] [facility] [address] [id number] [place] [address]- 4934 Mar, [facility] [place] [facility] [address] [id number] [place] [address]- 6649 Mar, [facility] [place] [facility] [address] [id number] [place] [address]- 7604 Mar, [facility] [place] [facility] [address] [id number] [place] [address]- 6099 Mar, [facility] [place] [facility] [address] [id number] [place] [address]- 7007 Mar, [facility] [place] [facility] [address] [id number] [place] [address]- 8425 Mar, [facility] [place] [facility] [address] [facility] [id number] [place] [address]- 4031 Mar, [facility] [place] [facility] [address] [id number] [place] [address]- 3298 Feb, [facility] [place] [facility] [address] [id number] [place] [address]- 9589 Feb, [facility] [place] [facility] [address] [id number] [place] [address]- 3131 Feb, [facility] [place] [facility] [address] [id number] [place] [address]- 8803 Feb, [facility] [place] [facility] [address] [id number] [place] [address]- 9358 Feb, [facility] [place] [facility] [address] [id number] [place] [address]- 9086 Feb, [facility] [place] [facility] [address] [id number] [place] [address]- 7208 Feb, [facility] [place] [facility] [address] [id number] [place] [address]- 4542 Feb, [facility] [place] [facility] [address] [id number] [place] [address]- 2354 Feb, [facility] [address] [id number] [place] [address]- 0695 Feb, [facility] [place] [facility] [address] [id number] [place] [address]- 7796 Jan, [facility] [place] [facility] [address] [id number] [place] [address]- 5443 Jan, [facility] [place] [facility] [address] [id number] [place] [address]- 9958 Jan, [facility] [place] [facility] [address] [id number] [place] [address]- 7371 Jan, [facility] [place] [facility] [address] [id number] [place] [address]- 6091 Jan, [facility] [place] [facility] [address] [id number] [place] [address]- 9921 Jan, [facility] [place] [facility] [address] [id number] [place] [address]- 1809 Jan, [facility] [place] [facility] [address] [id number] [place] [address]- 6975 Jan, [facility] [place] [facility] [address] [id number] [place] [address]- 6358 Dec, [facility] [place] [facility] [address] [id number] [place] [address]- 7305 Dec, [facility] [place] [facility] [address] [id number], [place] [address]- 6555 Dec, [facility] [place] [facility] [address] [id number] [place] [address]- 3846 Dec, [facility] [place] [facility] [address] [id number] [address]33 Dec, [facility] [place] [facility] [address] [id number] [place] [address]- 5369 Dec, [facility] [place] [facility] [address] [id number] [place] [address]- 5722 Dec, [facility] [place] [facility] [address] [id number] [place] [address]- 0851 Dec, [facility] [place] [facility] [address] [id number] [place] [address]- 2464 Nov, [facility] [place] [facility] [address] [id number] [place] [address]- 4907 Nov, [facility] [place] [facility] [address] [id number] [place] [address]- 0225 Nov, [facility] [place] [facility] [address] [id number], [place] [address]- 4661 Nov, [facility] [place] [facility] [address] [id number], [place] [address]- 7258 Nov, [facility] [place] [facility] [address] [id number], [place] [address]- 8402 Nov, [facility] [place] [facility] [address] [id number], [place] [address]- 0781 07 Nov, 2012 [facility] [place] [facility] [address] [id number], [place] [address]- 1443 10 Oct, 2012 [facility] [place] [facility] [address] [id number] [place] [address]- 8841 10 Oct, 2012 [facility] [place] [facility] [address] [id number] [place] [address]- 9332 05 Oct, 2012 [facility] [place] [facility] [address] [id number] [place] [address]- 5990 Sep, [facility] [address] [id number] [place] [address]- 9966 Sep, [facility] [place] [facility] [address] [id number] [place] [address]- 8636 Sep, [facility] [place] [facility] [address] [id number] [place] [address]- 9956 Sep, [facility] [place] [facility] [address] [id number] [place] [address]- 0906 Aug, [facility] [place] [facility] [address] [id number] [place] [address]- 9626 Aug, [facility] [place] [facility] [address] [id number] [place] [address]- 0379 Aug, [facility] [place] [facility] [address] [id number] [place] [address]- 4236 Aug, [facility] [address] [id number] [place] [address]- 0803 Aug, [facility] [place] [facility] [address] [id number] [place] [address]- 7382 Jul, [facility] [place] [facility] [address] [id number] [place] [address]- 0256 Jul, [facility] [place] [facility] [address] [id number] [place] [address]- 5331 Jul, [facility] [place] [facility] [address] [id number] [place] [address]- 2061 Jul, [facility] [place] [facility] [address] [id number] [place] [address]- 4122 Jul, [facility] [place] [facility] [address] [id number] [place] [address]- 7276 June, [facility] [place] [facility] [address] [id number] [place] [address]- 1788 June, [facility] [address] [id number] [place] [address]- 8493 June, [facility] [address] [id number] [place] [address]- 1255 June, [facility] [address] [id number] [place]344 June, [facility] [address] [id number] [place] [address]- 2512 May, [facility] [address] [id number] [place] [address]- 7771 May, [facility] [address] [id number] [place] [address]- 7578 May, [facility] [address] [id number] [place] [address]- 3510 May, [facility] [address] [id number] [place] [address]- 4211 May, [facility] [address] [id number] [place] [address]- 2917 May, [facility] [address] [id number] [place] [address]- 8425 May, [facility] [place] [facility] [address] [id number] [place] [address]- 8927 Apr, [facility] [place] [facility] [address] [id number], [place] [address]- 3374 Apr, [facility] [place] [facility] [address] [id number] [place] [address]- 9087 Apr, [facility] [place] [facility] [address] [id number] [place] [address]- 6213 Mar, [facility] [place] [facility] [address] [id number] [place] [address]- 0369 Mar, [facility] [place] [facility] [address] [id number] [place] [address]- 6162 20 Mar, 2012 [facility] [address] [id number] [place] [address]- 7066 19 Mar, 2012 [facility] [address] [id number] [place] [address] 2546 13 Mar, 2012 [facility] [address] [id number] [place] [address] 2546 13 Mar, 2012 [facility] [address] [id number] [place] [address] 2541 07 Mar, 2012 [facility] [address] [id number] [place] [address] 07 Mar, 2012 [facility] [address] [id number] [place] [address] 31 Feb, 2012 [facility] [address] [id number] [place] [address] 29 Feb, 2012 [facility] [address] [id number] [place] [address] Feb, [facility] [address] [id number] [place] [address] Feb, [facility] [address] [id number] [place] [address] 18 Feb, 2012 [facility] [address] [id number] [place] [address] 2547 15 Feb, 2012 [facility] [address] [id number] [place] [address] 2544 14 Feb, 2012 [facility] [place] [facility] [address] [id number] [place] [address] 2546 Jan, [facility] [place] [facility] [address] [id number] [place] [address] 2546 Jan, [facility] [address] [id number] [place] [address] Jan, [facility] [place] [facility] [address] [id number] [place] [address] Jan, [facility] [place] [facility] [address] [id number] [place] [address] Jan, [facility] [place] [facility] [address] [id number] [place] [address] Jan, [facility] [place] [facility] [address] [id number] [place] [address] Jan, [facility] [place] [facility] [address] [id number] [place] [address] Jan, [facility] [place] [facility] [address] [id number] [place] [address] Jan, [facility] [place] [facility] [address] [id number] [place] [address] 1769 Jan, [facility] [place] [facility] [address] [id number] [place] [address] Jan, [facility] [place] [facility] [address] [id number] [place] [address] 8318 Jan, [facility] [place] [facility] [address] [id number] [place] [address] Jan, [facility] [place] [facility] [address] [id number] [place] [address] Jan, [facility] [place] [facility] [address] [id number] [address] Dec, [facility] [place] [facility] [address] [id number] [place] [address] Dec, [facility] [place] [facility] [address] [id number] [place] [address] 8[address] Dec, [facility] [place] [facility] [address] [id number] [place] [address] 9595 Dec, [facility] [place] [facility] [address] [id number] [place] [address] 40[address] Dec, [facility] [place] [facility] [address] [id number] [place] [address] Dec, [facility] [place] [facility] [address] [id number] [place] [address]6 Dec, [facility] [place] [facility] [address] [id number] [place] [address] 93[address] Dec, [facility] [place] [facility] [address] [id number] [place] [address] Dec, [facility] [place] [facility] [address] [id number] [place] [address]708 Dec, [facility] [place] [facility] [address] [id number] [place] [address] 5[address] Dec, [facility] [place] [facility] [address] [id number] [place] [address] Dec, [facility] [place] [facility] [address] [id number] [place] [address]16 Dec, [facility] [place] [facility] [address] [id number] [place] [address]- [address] Dec, [facility] [place] [facility] [address] [id number] [place] [address] 288[address] Dec, [facility] [place] [facility] [address] [id number] [place] [address] 3974 Dec, [facility] [place] [facility] [address] [id number] [place] [address]- 2541 Dec, [facility] [place] [facility] [address] [id number] [place] [address] 1855 Dec, [facility] [place] [facility] [address] [id number] [place] [address]- 67[address] Dec, [facility] [place] [facility] [address] [id number] [place] [address] 6559 Dec, [facility] [place] [facility] [address] [id number] [place] [address] 31 Nov, 2011 [facility] [place] [facility] [address] [id number] [place] [address]406 31 Nov, 2011 [facility] [place] [facility] [address] [id number] [place] [address] 8972 30 Nov, 2011 [facility] [place] [facility] [address] [id number] [place] [address] Nov, [facility] [place] [facility] [address] [id number] [place] [address] 3717 Nov, [facility] [place] [facility] [address] [id number] [place] [address]- [address] 24 Nov, 2011 [facility] [place] [facility] [address] [id number] [place] [address] 6421 Nov, [facility] [place] [facility] [address] [id number] [place] [address]- [address]851 15 Nov, 2011 [facility] [place] [facility] [address] [id number] [place] [address]- 8489 Nov, [facility] [place] [facility] [address] [id number] [place] [address]- 3101 Nov, [facility] [place] [facility] [address] [id number] [place] [address]- [address] Nov, [facility] [place] [facility] [address] [id number] [place] [address]- 3059 Nov, [facility] [place] [facility] [address] [id number] [place] [address]- 0[address] Nov, [facility] [place] [facility] [address] [id number] [place] [address]- 7380 30 Oct, 2011 [facility] [place] [facility] [address] [id number] [place] [address]- 9546 27 Oct, 2011 [facility] [place] [facility] [address] [id number] [place] [address]- 7728 24 Oct, 2011 [facility] [place] [facility] [address] [id number] [place] [address]- [address]991 20 Oct, 2011 [facility] [place] [facility] [address] [id number] [place] [address]- 3916 Oct, [facility] [place] [facility] [address] [id number] [place] [address]- 0896 Oct, [facility] [place] [facility] [address] [id number] [place] [address]- 0071 Sep, [facility] [place] [facility] [address] [id number] [place] [address]- 1526 Sep, [facility] [place] [facility] [address] [id number] [place] [address]- 1246 Sep, [facility] [place] [facility] [address] [id number] [place] [address]- 5178 Sep, [facility] [place] [facility] [address] [id number] [place] [address]- 0076 Aug, [facility] [place] [facility] [address] [id number] [place] [address]- 4745 Aug, [facility] [place] [facility] [address] [id number] [place] [address]- 0244 Aug, [facility] [place] [facility] [address] [id number] [place] [address]- 7840 Jul, [facility] [place] [facility] [address] [id number] [place] [address]- 5837 Jul, [facility] [place] [facility] [address] [id number] [place] [address]- 8079 Jul, [facility] [place] [facility] [address] [id number] [place] [address]- 0815 Jul, [facility] [place] [facility] [address] [id number] [place] [address]- 2817 June, [facility] [place] [facility] [address] [id number] [place] [address] June, [facility] [address] [id number] [place] [address] June, [facility] [address] [id number] [place] [address] June, [facility] [address] [id number] [place] [address] June, [facility] [address] [id number] [place] [address] June, [facility] [address] [id number] [place] [address] May, [facility] [address] [id number] [place] [address] May, [facility] [address] [id number] [place] [address] May, [facility] [address] [id number] [place] [address] May, [facility] [address] [id number] [place] [address] May, [facility] [address] [id number] [place] [address] May, [facility] [address] [id number] [place] [address] May, [facility] [address] [id number] [place] [address] May, [facility] [place] [facility] [address] [id number] [place] [address] May, [facility] [address] [id number] [place] [address] Apr, [facility] [address] [id number] [place] [address] Mar, [facility] [address] [id number] [place] [address] 27 Mar, 2011 [facility] [place] [facility] [address] [id number] [place] [address] 21 Mar, 2011 [facility] [place] [facility] [address] [id number] [place] [address] 10 Mar, 2011 [facility] [place] [facility] [address] [id number] [place] [address] Feb, [facility] [place] [facility] [address] [id number] [place] [address] Feb, [facility] [place] [facility] [address] [id number] [place] [address] Feb, [facility] [place] [facility] [address] [id number] [place] [address] Jan, [facility] [place] [facility] [address] [id number] [place] [address] Jan, [facility] [place] [facility] [address] [id number] [place] [address] Jan, [facility] [place] [facility] [address] [id number], [place] [address] 29 Dec, 2010 [facility] [place] [facility] [address] [id number] [address] Dec, [facility] [place] [facility] [address] [id number], [place] [address] 16 Dec, 2010 [facility] [place] [facility] [address] [id number] [place] [address] 15 Dec, 2010 [facility] [place] [facility] [address] [id number], [place] [address] 31 Nov, 2010 [facility] [place] [facility] [address] [id number] [place] [address] 31 Nov, 2010 [facility] [place] [facility] [address] [id number] [place] [address] 19 Nov, 2010 [facility] [place] [facility] [address] [id number] [place] [address] 18 Nov, 2010 [facility] [place] [facility] [address] [id number] [place] [address]666 13 Oct, 2010 [facility] [place] [facility] [address] [id number] [place] [address] 20 Jul, 2010 [facility] [place] [facility] [address] [id number] [place] [address] Jan, [facility] [place] [facility] [address] [id number] [place] [address] 30 Dec, 2009 [facility] [place] [facility] [address] [id number] [place] [address] Dec, [facility] [place] [facility] [address] [id number] [place] [address] Dec, [facility] [place] [facility] [address] [id number] [place] [address] Dec, [facility] [place] [facility] [address] [id number] [place] [address] Dec, [facility] [place] [facility] [address] [facility] [id number] [place] [address] Dec, [facility] [place] [facility] [address] [id number] [place] [address] Nov, [facility] [place] [facility] [address] [id number] [place] [address]45 Nov, [facility] [place] [facility] [address] [id number] [place] [address] Nov, [facility] [place] [facility] [address] [id number] [place] [address] Apr, [facility] [place] [facility] [address] [facility] [id number] [place] [address] Apr, [facility] [place] [facility] [address] [id number] [place] [address] 29 Jan, 2009 [facility] [place] [facility] [address] [id number] [place] [address] 28 Jan, 2009 [facility] [place] [facility] [address] [id number] [place] [address]186 23 Jan, 2009 [facility] [place] [facility] [address] [id number] [place] [address] 2546 17 Jan, 2009 [facility] [place] [facility] [address] [id number] [place] [address] 2547 14 Jan, 2009 [facility] [place] [facility] [address] [id number] [place] [address] Jan, [facility] [place] [facility] [address] [id number] [place] [address] 30 Dec, 2008 [facility] [place] [facility] [address] [id number] [place] [address] Dec, [facility] [place] [facility] [address] [id number] [place] [address] 18 Dec, 2008 [facility] [place] [facility] [address] [id number] [place] [address] Dec, [facility] [place] [facility] [address] [facility] [id number] [place] [address] Dec, [facility] [place] [facility] [address] [id number], [place] [address] Dec, [facility] [place] [facility] [address] [id number] [place] [address] 28 Nov, 2008 [facility] [place] [facility] [address] [id number] [place] [address] 2546 27 Nov, 2008 [facility] [place] [facility] [address] [id number], [place] [address] 15 Aug, 2008 [facility] [place] [facility] [address] [id number], [place] [address] Jul, [facility] [address] [facility] [id number] [place] [address] June, [facility] [address] [facility] [id number] [place] [address] Apr, IMMUNIZATIONS No Known Immunizations SOCIAL HISTORY Never Assessed REASON FOR VISIT Controlled Medication Refill PLAN OF CARE VITAL SIGNS MEDICATIONS Medication Instructions Dosage Frequency Start Date End Date Duration Status Clonazepam 0.5 MG Orally 2 times a day 1 tablet 12h 28 days Active BusPIRone HCl 5 mg Orally [...] of loosened hardware/hip replacement ( [facility] in [place]) 09/2008 Hospitalization History in pt rehab s/p left hip repair 09/2008-11/2008 Hospitalization History [facility] 07/2009
--- OUTSIDE RECORDS SUMMARY | 2017-10-26 13:46 | XMS REPORT ---
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 765462519 Problem Panic attacks F41.0 Active 372331522 Problem Seasonal allergic rhinitis due to other allergic trigger J30.89 Active 705817265 Problem Dementia without behavioral disturbance, unspecified dementia type F03.90 Active 31969514 Problem Generalized osteoarthritis M15.9 Active 152795358 Problem Anxiety disorder, unspecified F41.9 Active 340013909 Problem Generalized anxiety disorder F41.1 Active 361991173 ALLERGIES No Information SOCIAL HISTORY Never Assessed PLAN OF CARE VITAL SIGNS MEDICATIONS No Known Medications RESULTS No Results PROCEDURES No Known procedures IMMUNIZATIONS No Known Immunizations MEDICAL (GENERAL) HISTORY Type Description Date Medical [...] of loosened hardware/hip replacement ( [facility] in [place]) 09/2008 Hospitalization History in pt rehab s/p left hip repair 09/2008-11/2008 Hospitalization History [facility] 07/2009
--- OUTSIDE RECORDS SUMMARY | 2017-10-26 13:47 | XMS REPORT ---
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 234661187 Problem Panic attacks F41.0 Active 528922403 Problem Seasonal allergic rhinitis due to other allergic trigger J30.89 Active 221811322 Problem Dementia without behavioral disturbance, unspecified dementia type F03.90 Active 32447332 Problem Generalized osteoarthritis M15.9 Active 748623479 Problem Anxiety disorder, unspecified F41.9 Active 791283301 Problem Generalized anxiety disorder F41.1 Active 221770228 ALLERGIES No Information SOCIAL HISTORY Never Assessed PLAN OF CARE VITAL SIGNS MEDICATIONS Unknown [...] of loosened hardware/hip replacement ( [facility] in [place]) 09/2008 Hospitalization History in pt rehab s/p left hip repair 09/2008-11/2008 Hospitalization History [facility] 07/2009
--- OUTSIDE RECORDS SUMMARY | 2017-10-26 13:47 | XMS REPORT ---
Author Author KONG BAB[facility] Address [address] [place] [address] Care Team Providers Care Medical Records Coder Name Role Phone KONGPROMISE KIMHANY Unavailable PROBLEMS Type Condition ICD9-CM Code [id number] Code Onset Dates Condition Status SNOMED Code Problem Generalized anxiety disorder F41.1 Active 086956417 Problem Seasonal allergic rhinitis due to other allergic trigger J30.89 Active 873051859 Problem Anxiety disorder, unspecified F41.9 Active 170358262 Problem 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 Active 856540920 Problem Meningioma D32.9 Active 442708573 Problem Generalized osteoarthritis M15.9 Active 558475198 Problem Dementia without behavioral disturbance, unspecified dementia type F03.90 Active 26448049 Problem Debility R53.81 Active 73679104 Problem At risk for falls Z91.81 Active 088154952 Problem Other chronic pain G89.29 Active 00755916 Problem Panic attacks F41.0 Active 008122135 Problem Acute drug withdrawal syndrome without complication F19.230 Active 845906539 Problem Anxiety F41.9 Active 48702859 ALLERGIES No Information ENCOUNTERS Encounter Location Date Diagnosis [place] [id number] [address] Nov, [place] [id number] [place] [address] 42341- 9104 Aug, Dementia without behavioral disturbance, unspecified dementia type F03.90 and Anxiety F41.9 [facility] [id number] [place] [address] 80866- 5905 Jul, Dementia without behavioral disturbance, unspecified dementia type F03.90 [place] [id number], [place] [address] 47[address] Jul, 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 ; Generalized osteoarthritis M15.9 ; Other chronic pain G89.29 ; At risk for falls Z91.81 and Debility R53.81 [facility] [id number] [place] [address] 08846- 0816 Jul, [facility] [id number] [place] [address] 84267- 3246 June, Dementia without behavioral disturbance, unspecified dementia type F03.90 [facility] [id number] [place] [address] 14343- 2882 June, [facility] [id number] [place] [address] 70760- 5888 June, [facility] [id number] [place] [address] 32559- 1269 June, [facility] [id number] [place] [address] 61248- 5502 June, Dementia without behavioral disturbance, unspecified dementia type F03.90 and Anxiety F41.9 [facility] [id number] [place] [address] 13494- 5440 May, [facility] [id number] [place] [address] 40574- 0659 May, [facility] WALK IN [facility] [id number] [place] [address] 01680 -2091 May, Anxiety F41.9 ; Acute drug withdrawal syndrome without complication F19.230 and Abdominal pain, unspecified abdominal location R10.9 [facility] [id number] [place] [address] 25725- 5733 May, Panic attacks F41.0 [facility] [id number] [place] [address] 40853- 2692 May, Other chronic pain G89.29 and Generalized anxiety disorder F41.1 [place] [id number] [place] [address] 52599- 1709 Apr, Housing problems Z59.9 and Panic attacks F41.0 [facility] [id number] [place] [address] 72384- 6917 Mar, Panic attacks F41.0 [facility] [id number] [place] [address] 63926- 3912 Feb, [facility] [id number] [place] [address] 19071- 7588 Feb, Panic attacks F41.0 [facility] [id number] [place] [address] 99135- 1451 Feb, Pain in right knee M25.561 ; Pain in left knee M25.562 ; Other chronic pain G89.29 ; Housing problems Z59.9 ; Dementia without behavioral disturbance, unspecified dementia type F03.90 ; Generalized anxiety disorder F41.1 and Advance directive declined by patient Z78.9 [place] [id number] [place] [address] 49624- 0014 Jan, Panic attacks F41.0 [facility] [id number] [place] [address] 09530- 1845 Jan, Panic attacks F41.0 [place] [id number] [place] [address] 81762- 4840 Dec, Panic attacks F41.0 [facility] [id number] [place] [address] 32764 -3635 Nov, Allergic contact dermatitis due to cosmetics L23.2 [facility] [id number] [place] [address] 00325- 1496 Nov, Panic attacks F41.0 [place] [id number] [place] [address] 33040- 9069 Oct, Panic attacks F41.0 [place] [id number] [place] [address] 22556- 0334 Sep, Panic attacks F41.0 ; Insect bite, initial encounter W57.XXXA and 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 [facility] [address], [place] [address] 1019 Sep, [facility] [id number] [place] [address] 05157- 7399 Aug, Generalized anxiety disorder F41.1 [facility] [id number] [place] [address] 03859- 9845 Jul, [facility] [id number] [place] [address] 76376 -3666 June, Seasonal allergic rhinitis due to other allergic trigger J30.89 [facility] [id number] [place] [address] 06150- 8921 June, [facility] [id number] [place] [address] 53000- 7926 June, [facility] [id number] [place] [address] 69771 -8351 June, Dysuria R30.0 and RLQ abdominal pain R10.31 [facility] [id number] [place] [address] 11775- 9723 May, Generalized anxiety disorder F41.1 ; Generalized osteoarthritis M15.9 and Dementia without behavioral disturbance, unspecified dementia type F03.90 [facility] [id number] [place] [address] 12401- 3275 May, [facility] [id number] [place] [address] 54120- 7119 May, [facility] [id number] [place] [address] 24661- 8868 May, [facility] [id number] [place] [address] 78234- 3796 Apr, [facility] [id number] [place] [address] 43535- 2828 Apr, Generalized anxiety disorder F41.1 [facility] [address], [place] [address]- 5919 Apr, [facility] [id number] [place] [address] 70681- 9619 Apr, [facility] [address], [place] [address]- 4862 Apr, [facility] [id number] [place] [address] 39999- 2884 Apr, Generalized anxiety disorder F41.1 [facility] [address], [place] [address]- 5561 Mar, [facility] [id number] [place] [address] 94274- 4615 Mar, [facility] [id number] [place] [address] 68524- 4842 Mar, [facility] [id number] [place] [address] 40548- 3142 Mar, [facility] [id number] [place] [address] 91461- 6154 Mar, Generalized anxiety disorder F41.1 [facility] [address], [place] [address]- 4272 Feb, Anxiety disorder, unspecified F41.9 [facility] [address], [place] [address]- 4241 Feb, [facility] [address], [place] [address]- 6714 Feb, [facility] [id number] [place] [address] 24744- 5854 Feb, [facility] [address], [place] [address]2399 Feb, Urinary frequency R35.0 and Acute cystitis without hematuria N30.00 [facility] [address] [place] [address]- 9488 Feb, [facility] [address] [place] [address]- 2089 Jan, [facility] [address] [place] [address]- 3317 Jan, [facility] [address], [place] [address]- 6240 Dec, [facility] [id number] [place] [address], [place] [address]- 3909 Dec, [facility] [address] [place] [address], [place] [address]- 9193 Dec, Edema, unspecified type R60.9 [facility] [address] [place] [address]- 3402 Dec, [facility] [id number] [place] [address], [place] [address]- 2481 Dec, [facility] [address], [place] [address]- 8738 30 Oct, 2015 Generalized anxiety disorder F41.1 [facility] [address], [place] [address]- 1822 Oct, [facility] [address], [place] [address]- 7095 16 Oct, 2015 [facility] [address], [place] [address]- 2004 15 Oct, 2015 [facility] [id number] [place] [address]- 6033 06 Oct, 2015 [facility] [address], [place] [address]- 6519 Aug, Anxiety disorder, unspecified F41.9 [facility] [address], [place] [address]- 5658 Jul, Anxiety disorder, unspecified F41.9 [facility] [address], [place] [address]- 3545 Jul, Generalized anxiety disorder F41.1 [facility] [id number] [place] [address] 50296- 2168 Jul, [facility] [id number] [place] [address] 07228- 6957 June, [facility] [id number] [place] [address] 17655- 0603 June, [facility] [id number] [place] [address] 73496- 8885 June, [facility] [id number] [place] [address] 76830- 2780 June, [facility] [id number] [place] [address] 70522- 5213 May, [facility] [id number] [place] [address] 47822 -2306 May, Dementia without behavioral disturbance, unspecified dementia type F03.90 and Generalized osteoarthritis M15.9 [facility] [id number] [place] [address] 82497- 3459 May, Generalized osteoarthritis M15.9 and 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 [facility] [address], [place] [address]- 4424 Apr, [facility] [address], [place] [address]- 2680 Apr, [facility] [address], [place] [address]- 9664 Apr, [facility] [address], [place] [address]- 8686 Mar, [facility] [address], [place] [address]- 5718 Mar, [facility] [id number] [place] [address] 76493- 7457 Mar, Generalized anxiety disorder F41.1 [facility] [id number] [place] [address] 49280- 9722 Feb, Other infective acute otitis externa of right ear H60.391 [place] [address] 82219- 8205 Dec, Dysuria R30.0 ; Generalized osteoarthritis M15.9 and Gastroesophageal reflux disease, esophagitis presence not specified K21.9 [place] [id number] [place] [address] 48702- 2076 Dec, [place] [address] 72150- 9825 Dec, Generalized anxiety disorder F41.1 ; Encounter for immunization Z23 and Dementia F03.90 [place] [address] 40869- 6076 Nov, [facility] [id number] [place] [address] 58041- 1035 Oct, [place] [address] 96024- 3595 Oct, 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 ; Chronic pain 338.29 ; Anxiety 300.00 and Dementia 294.20 [facility] [id number] [place] [address] 90272- 0720 Oct, [facility] [id number] [place] [address] 15851- 7559 Aug, Generalized anxiety disorder 300.02 and Dementia 294.20 [facility] [id number] [place] [address] 60324- 3845 Aug, [facility] [id number] [place] [address] 24324- 1241 Aug, Anxiety 300.00 and Chronic pain 338.29 [facility] [address] [address]- 6829 Jul, [facility] [address], [place] [address]- 4854 Jul, [facility] [address], [place] [address]- 3468 June, [facility] [id number] 1102 June, Anxiety, generalized 300.02 ; Dementia 294.20 and No condition on [place] II V71.09 [facility] [address] [place] [address]- 8855 May, [facility] [address], [place] [address]- 5592 May, [facility] [address], [place] [address]- 8819 Apr, [facility] [address], [place] [address]- 4570 Apr, [facility] [address], [place] [address]- 1768 Apr, [facility] [address], [place] [address]- 6875 Apr, [facility] [address], [place] [address]- 6334 Apr, [facility] [place] [facility] [address], [place] [address]- 2075 Apr, [facility] [address], [place] [address]- 9238 Apr, [facility] [place] [facility] [address], [place] [address]- 4100 Apr, [facility] [place] [facility] [address], [place] [address]- 4029 Apr, [facility] [place] [facility] [address] [facility] [id number] [place] [address]- 3642 Apr, 2014 [facility] [place] [facility] [address] [id number] [place] [address]- 6126 Apr, 2014 [facility] [place] [facility] [address] [id number] [place] [address]- 2758 Apr, 2014 [facility] [place] [facility] [address] [facility] [id number] [place] [address]- 8665 Apr, 2014 [facility] [place] [facility] [address] [facility] [id number] [place] [address]- 6779 Apr, 2014 [facility] [place] [facility] [address] [id number] [place] [address]- 7425 Apr, 2014 [facility] [place] [facility] [address] [facility] [id number] [place] [address]- 7390 Apr, [facility] [place] [facility] [address] [facility] [id number] [place] [address]- 5300 Mar, 2014 [facility] [place] [facility] [address] [facility] [id number] [place] [address]- 2546 Mar, 2014 [facility] [place] [facility] [address] [facility] [id number] [place] [address]- 9711 Mar, 2014 [facility] [place] [facility] [id number] [place] [address]- 3347 Mar, 2014 [facility] [place] [facility] [address] [facility] [id number] [address]- 8246 Mar, 2014 [facility] [place] [facility] [address] [facility] [id number] [place] [address]- 6073 Mar, 2014 [facility] [place] [facility] [address] [facility] [id number] [place] [address]- 1016 Mar, 2014 [facility] [place] [facility] [address] [facility] [id number] [place] [address]- 4344 Mar, 2014 [facility] [place] [facility] [address], [place] [address]- 0536 20 Mar, 2014 [facility] [place] [facility] [address] [id number] [place] [address]- 1486 20 Mar, 2014 [facility] [place] [facility] [address] [id number] [place] [address] 2546 18 Mar, 2014 [facility] [place] [facility] [address] [facility] [id number] [place] [address]- 7010 18 Mar, 2014 [facility] [place] [facility] [address] [id number] [place] [address]- 1876 17 Mar, 2014 [facility] [place] [facility] [address] [id number] [place] [address]- 2374 17 Mar, 2014 [facility] [place] [facility] [address] [facility] [id number] [place] [address]- 6860 17 Mar, 2014 [facility] [place] [facility] [address] [facility] [id number] [place] [address]- 6772 17 Mar, 2014 [facility] [place] [facility] [address] [facility] [id number] [place] [address]- 6794 13 Mar, 2014 [facility] [place] [facility] [address] [facility] [id number] [place] [address]- 1707 13 Mar, 2014 [facility] [place] [facility] [address] [facility] [id number] [place] [address]- 5119 13 Mar, 2014 [facility] [place] [facility] [address] [facility] [id number] [place] [address]- 2545 13 Mar, 2014 [facility] [place] [facility] [address] [facility] [id number] [place] [address]- 2549 12 Mar, 2014 [facility] [place] [facility] [address] [facility] [id number] [place] [address]- 4086 12 Mar, 2014 [facility] [place] [facility] [address] [facility] [id number] [place] [address]- 2546 10 Mar, 2014 [facility] [place] [facility] [address] [facility] [id number] [place] [address]- 3370 Mar, [facility] [place] [facility] [address] [id number] [place] [address]- 5843 Mar, [facility] [place] [facility] [address] [id number] [place] [address]- 4728 Mar, [facility] [place] [facility] [address] [facility] [id number] [place] [address]- 0924 Feb, [facility] [place] [facility] [address] [id number] [place] [address]- 9381 Feb, [facility] [place] [facility] [address] [id number] [place] [address]- 4116 Feb, [facility] [place] [facility] [address] [id number] [place] [address]- 2096 Feb, [facility] [place] [facility] [address] [id number] [place] [address]- 0960 Feb, [facility] [place] [facility] [address] [id number] [place] [address]- 5937 Feb, [facility] [place] [facility] [address] [id number] [place] [address]- 8699 Feb, [facility] [place] [facility] [address] [id number] [place] [address]- 6939 Feb, [facility] [place] [facility] [address] [id number] [address]- 2833 Feb, [facility] [place] [facility] [address] [id number], [place] [address]- 0381 Feb, [facility] [place] [facility] [address] [id number] [place] [address]- 2521 Feb, [facility] [place] [facility] [address] [id number] [place] [address]- 1981 Feb, [facility] [place] [facility] [address] [id number] [place] [address]- 6215 Feb, [facility] [place] [facility] [address] [id number] [place] [address]- 5881 08 Feb, 2014 [facility] [address] [id number] [place] [address]- 2134 Feb, [facility] [address] [id number] [place] [address]- 7709 Jan, [facility] [address] [id number] [place] [address]- 7197 Jan, [facility] [address] [id number] [place] [address] Jan, [facility] [address] [id number] [place] [address] Jan, [facility] [address] [id number] [place] [address] Jan, [facility] [address] [id number] [place] [address] Jan, [facility] [address] [id number] [place] [address] Jan, [facility] [address] [id number] [place] [address] Jan, [facility] [address] [id number] [place] [address] Jan, [facility] [place] [facility] [address] [id number] [place] [address] Jan, [facility] [address] [id number] [place] [address] Jan, [facility] [place] [facility] [address] [id number] [place] [address] Jan, [facility] [place] [facility] [address] [id number] [place] [address] Jan, [facility] [place] [facility] [address] [id number] [place] [address] Jan, [facility] [address] [id number] [place] [address] Jan, [facility] [place] [facility] [address] [id number] [place] [address] Jan, [facility] [address] [id number] [place] [id number] Jan, [facility] [place] [facility] [address] [id number] [place] [address] Jan, [facility] [address] [id number] [place] [address] Jan, [facility] [place] [facility] [address] [id number] [place] [address] Jan, [facility] [address] [id number] [place] [address] Dec, [facility] [place] [facility] [address] [id number] [place] [address] Dec, [facility] [place] [facility] [address] [id number] [place] [address] Dec, [facility] [place] [facility] [address] [id number] [place] [address] Dec, [facility] [place] [facility] [address] [id number] [place] [address] Dec, [facility] [place] [facility] [address] [id number] [address] Dec, [facility] [place] [facility] [address] [id number] [place] [address] Dec, [facility] [place] [facility] [address] [id number] [place] [address] Nov, [facility] [place] [facility] [address] [id number] [place] [address] Nov, [facility] [place] [facility] [address] [id number] [address] Nov, [facility] [place] [facility] [address] [id number] [place] [address] Nov, [facility] [place] [facility] [address] [id number] [place] [address] Nov, [facility] [place] [facility] [address] [id number] [place] [address] 15 Nov, 2013 [facility] [place] [facility] [address] [id number] [place] [address] Nov, [facility] [place] [facility] [address] [id number] [place] [address] Nov, [facility] [place] [facility] [address] [id number] [place] [address]- 2331 Nov, [facility] [place] [facility] [address] [id number] [place] [address]- 6933 Nov, [facility] [place] [facility] [address] [id number] [place] [address]- 8656 29 Oct, 2013 [facility] [place] [facility] [address] [id number] [place] [address] 254 29 Oct, 2013 [facility] [place] [facility] [address] [id number] [place] [address]- 2541 15 Oct, 2013 [facility] [place] [facility] [address] [id number] [address] 254 15 Oct, 2013 [facility] [place] [facility] [address] [id number], [place] [address] 2544 15 Oct, 2013 [facility] [place] [facility] [address] [id number] [place] [address] 2548 15 Oct, 2013 [facility] [place] [facility] [address] [id number] [place] [address]- 2545 10 Oct, 2013 [facility] [place] [facility] [address] [id number] [place] [address]- 2540 10 Oct, 2013 [facility] [place] [facility] [address] [id number] [place] [address]- 7017 Oct, [facility] [place] [facility] [address] [id number] [place] [address]- 1245 Oct, [facility] [place] [facility] [address] [id number] [place] [address]- 5153 Sep, [facility] [place] [facility] [address] [id number] [place] [address]- 6199 Sep, [facility] [place] [facility] [address] [id number] [place] [address]- 1002 Sep, [facility] [place] [facility] [address] [id number] [place] [address]- 8958 Sep, [facility] [place] [facility] [address] [id number] [place] [address]- 6353 Sep, [facility] [place] [facility] [address] [id number] [place] [address]- 0378 Sep, [facility] [place] [facility] [address] [id number] [place] [address]- 2238 Sep, [facility] [place] [facility] [address] [id number] [place] [address]- 1892 Sep, [facility] [place] [facility] [address] [id number] [place] [address]- 2033 Sep, [facility] [place] [facility] [address] [id number] [place] [address]- 0124 Sep, [facility] [place] [facility] [address] [id number] [place] [address]- 2380 Aug, [facility] [place] [facility] [address] [id number] [place] [address]- 0268 Aug, [facility] [place] [facility] [address] [id number] [place] [address]- 9874 Aug, [facility] [place] [facility] [address] [id number] [place] [address]- 6305 Aug, [facility] [place] [facility] [address] [id number] [place] [address]- 9885 18 Aug, 2013 [facility] [place] [facility] [address] [id number] [place] [address]- 7691 Aug, [facility] [place] [facility] [address] [id number] [place] [address]- 0187 Aug, [facility] [place] [facility] [address] [id number] [place] [address]- 0407 Aug, 2013 [facility] [place] [facility] [address] [id number] [place] [address]- 5922 Aug, [facility] [place] [facility] [address] [id number] [place] [address]- 0617 Aug, [facility] [place] [facility] [address] [id number] [place] [address]- 7621 Aug, [facility] [place] [facility] [address] [id number] [place] [address]- 4395 Aug, [facility] [place] [facility] [address] [id number] [place] [address]- 1234 Jul, [facility] [place] [facility] [address] [id number] [place] [address]- 1509 Jul, [facility] [place] [facility] [address] [id number] [place] [address]- 7014 Jul, [facility] [place] [facility] [address] [id number] [place] [address]- 6644 Jul, [facility] [place] [facility] [address] [id number] [place] [address]- 5945 Jul, [facility] [place] [facility] [address] [id number] [place] [address]- 3376 Jul, [facility] [place] [facility] [address] [id number] [place] [address]- 0951 Jul, [facility] [place] [facility] [address] [id number] [place] [address]- 5723 16 Jul, 2013 [facility] [place] [facility] [address] [id number] [place] [address]- 3656 16 Jul, 2013 [facility] [place] [facility] [address] [id number] [place] [address]- 6799 Jul, [facility] [place] [facility] [address] [id number] [place] [address]- 3975 Jul, [facility] [place] [facility] [address] [id number] [place] [address]- 1110 Jul, [facility] [place] [facility] [address] [id number] [place] [address]- 4933 Jul, [facility] [place] [facility] [address] [id number] [place] [address]- 4616 Jul, [facility] [place] [facility] [address] [id number] [place] [address]- 4755 Jul, [facility] [place] [facility] [address] [id number] [place] [address]- 0929 Jul, [facility] [place] [facility] [address] [id number] [place] [address]- 4596 Jul, [facility] [place] [facility] [address] [id number] [place] [address]- 0050 June, [facility] [place] [facility] [address] [id number] [place] [address]- 3698 June, [facility] [place] [facility] [address] [id number] [place] [address]- 5604 June, [facility] [place] [facility] [address] [id number] [place] [address]- 9029 June, [facility] [place] [facility] [address] [id number] [place] [address]- 3391 June, [facility] [place] [facility] [address] [id number] [place] [address]- 6939 June, [facility] [place] [facility] [address] [id number] [place] [address]- 1911 June, [facility] [place] [facility] [address] [id number] [place] [address]- 2738 June, [facility] [place] [facility] [address] [id number] [place] [address]- 8955 June, [facility] [place] [facility] [address] [id number] [place] [address]- 8008 June, [facility] [place] [facility] [address] [id number] [place] [address]- 8110 June, [facility] [place] [facility] [address] [id number] [place] [address]- 5649 June, [facility] [place] [facility] [address] [id number] [place] [address]- 4805 June, [facility] [place] [facility] [address] [id number] [place] [address]- 8271 June, [facility] [place] [facility] [address] [id number] [place] [address]- 1565 June, [facility] [place] [facility] [address] [id number] [place] [address]- 9625 June, [facility] [place] [facility] [address] [id number] [place] [address]- 5390 June, [facility] [place] [facility] [address] [id number] [place] [address]- 9101 June, [facility] [place] [facility] [address] [id number] [place] [address]- 7848 June, [facility] [place] [facility] [address] [id number] [place] [address]- 2511 June, [facility] [place] [facility] [address] [id number] [place] [address]- 0184 June, [facility] [place] [facility] [address] [id number] [place] [address]- 0159 June, [facility] [address] [id number] [place] [address]- 9927 June, [facility] [place] [facility] [address] [id number] [place] [address]- 3853 June, [facility] [place] [facility] [address] [id number] [place] [address]66 June, [facility] [place] [facility] [address] [id number] [place] [address]- 8769 June, [facility] [place] [facility] [address] [id number] [place] [address]- 7212 June, [facility] [place] [facility] [address] [id number] [place] [address]- 0365 June, [facility] [place] [facility] [address] [id number] [place] [address]- 0599 June, [facility] [place] [facility] [address] [id number] [place] [address]- 6830 June, [facility] [place] [facility] [address] [id number] [place] [address]- 3651 June, [facility] [place] [facility] [address] [id number] [place] [address]- 3650 June, [facility] [place] [facility] [address] [id number] [place] [address]- 6962 May, [facility] [place] [facility] [address] [id number] [place] [address]- 3752 May, [facility] [place] [facility] [address] [id number] [place] [address]- 7705 May, [facility] [place] [facility] [address] [id number] [place] [address]- 1975 May, [facility] [place] [facility] [address] [id number] [place] [address]- 6377 May, [facility] [place] [facility] [address] [id number] [place] [address]- 8143 May, [facility] [place] [facility] [address] [id number] [place] [address]- 8951 May, [facility] [place] [facility] [address] [id number] [place] [address]- 5102 May, [facility] [place] [facility] [address] [id number] [place] [address]- 9050 May, [facility] [place] [facility] [address] [id number] [place] [address]- 9601 May, [facility] [place] [facility] [address] [id number] [place] [address]- 1187 May, [facility] [place] [facility] [address] [id number] [place] [address]- 9273 May, [facility] [place] [facility] [address] [id number] [place] [address]- 2624 May, [facility] [place] [facility] [address] [id number] [place] [address]- 3219 May, [facility] [place] [facility] [address] [id number] [place] [address]- 6496 May, [facility] [place] [facility] [address] [id number] [place] [address]- 0437 Apr, [facility] [place] [facility] [address] [id number] [place] [address]- 9271 Apr, [facility] [place] [facility] [address] [id number] [place] [address]- 8606 Apr, [facility] [place] [facility] [address] [id number] [place] [address]- 2968 Apr, [facility] [place] [facility] [address] [id number] [place] [address]- 7899 Apr, [facility] [place] [facility] [address] [id number] [place] [address]- 6651 Apr, [facility] [place] [facility] [address] [id number] [place] [address]- 7963 Mar, [facility] [place] [facility] [address] [id number] [place] [address]- 2236 Mar, [facility] [place] [facility] [address] [id number] [place] [address]- 3866 Mar, [facility] [place] [facility] [address] [id number] [place] [address] 2546 Mar, [facility] [place] [facility] [address] [id number] [place] [address]- 1708 Mar, [facility] [place] [facility] [address] [id number] [place] [address]- 6962 Mar, [facility] [place] [facility] [address] [id number] [place] [address]- 6580 Mar, [facility] [place] [facility] [address] [id number] [place] [address]- 5222 Mar, [facility] [place] [facility] [address] [id number] [place] [address]- 0643 Feb, [facility] [place] [facility] [address] [id number] [place] [address]- 4337 Feb, [facility] [place] [facility] [address] [id number] [place] [address]- 5823 Feb, [facility] [place] [facility] [address] [id number] [place] [address]- 0392 Feb, [facility] [place] [facility] [address] [id number] [place] [address]- 3506 Feb, [facility] [place] [facility] [address] [id number] [place] [address]- 5961 Feb, [facility] [place] [facility] [address] [id number] [place] [address]- 2822 Feb, [facility] [place] [facility] [address] [id number] [place] [address]- 9678 Feb, [facility] [address] [id number] [place] [address]- 0640 Feb, [facility] [place] [facility] [address] [id number] [place] [address]- 4100 Feb, [facility] [address] [id number] [place] [address]- 5524 Jan, [facility] [place] [facility] [address] [id number] [place] [address]- 9124 Jan, [facility] [address] [id number] [place] [address]- 5680 Jan, [facility] [place] [facility] [address] [id number] [place] [address]- 7270 Jan, [facility] [address] [id number] [place] [address]- 0773 Jan, [facility] [place] [facility] [address] [id number] [place] [address]- 8693 Jan, [facility] [place] [facility] [address] [id number] [place] [address]- 0375 Jan, [facility] [place] [facility] [address] [facility] [id number] [place] 4177 Jan, [facility] [place] [facility] [address] [id number] [place] [address]- 1852 Dec, [facility] [place] [facility] [address] [id number] [place] [address]- 0936 Dec, [facility] [place] [facility] [address] [id number] [place] [address]- 3659 Dec, [facility] [place] [facility] [address] [id number] [place] [address]- 5411 Dec, [facility] [place] [facility] [address] [id number] [place] [address]- 9016 Dec, [facility] [place] [facility] [address] [id number] [place] [address]- 1902 Dec, [facility] [place] [facility] [address] [id number] [place] [address]- 2914 Dec, [facility] [place] [facility] [address] [id number] [place] [address]- 0571 Dec, [facility] [place] [facility] [address] [id number] [place] [address]- 8813 Nov, [facility] [place] [facility] [address] [id number] [place] [address]- 5051 Nov, [facility] [place] [facility] [address] [id number] [place] [address]- 0661 Nov, [facility] [place] [facility] [address] [id number] [place] [address]- 5945 Nov, [facility] [place] [facility] [address] [id number] [place] [address]- 4514 Nov, [facility] [place] [facility] [address] [id number] [place] [address]- 6440 Nov, [facility] [place] [facility] [address] [id number] [place] [address]- 5555 Nov, [facility] [place] [facility] [address] [id number] [place] [address]- 6925 Oct, [facility] [place] [facility] [address] [id number] [place] [address]- 8005 10 Oct, 2012 [facility] [place] [facility] [address] [id number] [place] [address]- 5233 05 Oct, 2012 [facility] [place] [facility] [address] [id number] [place] [address]- 4418 Sep, [facility] [place] [facility] [address] [id number] [place] [address]- 0256 Sep, [facility] [place] [facility] [address] [id number] [place] [address]- 5404 Sep, [facility] [address] [id number] [place] [address]- 2712 Sep, [facility] [place] [facility] [address] [id number] [place] [address]- 3820 Aug, [facility] [place] [facility] [address] [id number] [place] [address]- 4297 Aug, [facility] [place] [facility] [address] [id number] [place] [address]- 9328 Aug, [facility] [place] [facility] [address] [id number] [place] [address]- 4577 Aug, [facility] [place] [facility] [address] [id number] [place] [address]- 9841 Aug, [facility] [place] [facility] [address] [id number] [place] [address]- 2134 Jul, [facility] [place] [facility] [address] [id number] [place] [address]- 1313 Jul, [facility] [place] [facility] [address] [id number] [place] [address]- 8155 Jul, [facility] [place] [facility] [address] [id number] [place] [address]- 4740 Jul, [facility] [place] [facility] [address] [id number] [place] [address]- 1804 Jul, [facility] [place] [facility] [address] [id number] [place] [address]- 0806 June, [facility] [place] [facility] [address] [id number] [place] [address]- 3249 June, [facility] [place] [facility] [address] [id number] [place] [address]- 9574 June, [facility] [place] [facility] [address] [id number] [place] [address]- 0808 June, [facility] [place] [facility] [address] [id number] [place] [address]- 7118 June, [facility] [address] [id number] [place] [address]- 8517 29 May, 2012 [facility] [address] [id number] [place] [address]- 5334 May, [facility] [address] [id number] [place] [address]- 2520 18 May, 2012 [facility] [address] [id number] [place] [address]- 7514 17 May, 2012 [facility] [address] [id number] [place] [address]- 7459 16 May, 2012 [facility] [address] [id number] [place] [address]- 1596 May, [facility] [address] [id number] [place] [address]- 3572 04 May, 2012 [facility] [address] [id number] [place] [address]- 4578 Apr, [facility] [address] [id number] [place] [address]- 2330 Apr, [facility] [address] [id number] [place] [address]- 9907 Apr, [facility] [address] [id number] [place] [address]- 4395 Mar, [facility] [address] [id number] [place] [address]- 3037 Mar, [facility] [address] [id number] [place] [address]- 7396 Mar, [facility] [address] [id number] [place] [address]- 6626 19 Mar, 2012 [facility] [address] [id number] [place] [address]- 5565 13 Mar, 2012 [facility] [address] [id number] [place] [address]- 7844 13 Mar, 2012 [facility] [address] [id number] [place] [address]- 7646 07 Mar, 2012 [facility] [address] [id number] [place] [address]- 6108 Mar, [facility] [place] [facility] [address] [id number] [place] [address]- 4468 31 Feb, 2012 [facility] [address] [id number] [place] [address]- 7420 29 Feb, 2012 [facility] [address] [id number] [place] [address]- 4449 Feb, [facility] [address] [id number] [place] [address] Feb, [facility] [address] [id number] [place] [address] 18 Feb, 2012 [facility] [address] [id number] [address] 15 Feb, 2012 [facility] [address] [id number] [place] [address] 14 Feb, 2012 [facility] [address] [id number], [place] [address] Jan, [facility] [place] [facility] [address] [id number], [place] [address] Jan, [facility] [place] [facility] [address] [id number] [place] [address] 1077 Jan, [facility] [place] [facility] [address] [id number] [place] [address] 26[address] Jan, [facility] [place] [facility] [address] [id number] [place] [address]- [address] Jan, [facility] [place] [facility] [address] [id number] [place] [address]- [address] 27 Jan, 2012 [facility] [place] [facility] [address] [id number] [place] [address]- 1146 Jan, [facility] [place] [facility] [address] [id number] [place] [address]- 4[address] Jan, [facility] [place] [facility] [address] [id number] [place] [address]- 7986 Jan, [facility] [place] [facility] [address] [id number] [place] [address]- 49[address] 13 Jan, 2012 [facility] [place] [facility] [address] [id number] [place] [address]- 4556 Jan, [facility] [place] [facility] [address] [id number] [place] [address]- 385[address] Jan, [facility] [place] [facility] [address] [id number] [place] [address]- 95[address] Jan, [facility] [address] [id number] [place] [address] Jan, [facility] [place] [facility] [address] [id number] [place] [address]- [address] Dec, [facility] [place] [facility] [address] [id number] [place] [address] 29 Dec, 2011 [facility] [place] [facility] [address] [id number] [place] [address] 5810 Dec, [facility] [place] [facility] [address] [id number] [place] [address] 2547 Dec, [facility] [place] [facility] [address] [id number] [place] [address]- 0456 Dec, [facility] [place] [facility] [address] [id number] [place] [address] Dec, [facility] [place] [facility] [address] [id number] [place] [address]- 4852 Dec, [facility] [place] [facility] [address] [id number] [place] [address]- 6985 Dec, [facility] [place] [facility] [address] [id number] [place] [address]- 0383 Dec, [facility] [place] [facility] [address] [id number] [place] [address]- 5915 Dec, [facility] [place] [facility] [address] [id number] [place] [address]- 9[address] Dec, [facility] [place] [facility] [address] [id number] [place] [address]- 0870 Dec, [facility] [place] [facility] [address] [id number] [place] [address]- 4277 Dec, [facility] [place] [facility] [address] [id number] [place] [address]- 1204 Dec, [facility] [place] [facility] [address] [id number] [place] [address]- 1744 Dec, [facility] [place] [facility] [address] [id number] [place] [address]- 9201 Dec, [facility] [place] [facility] [address] [id number] [place] [address]- 9477 Dec, [facility] [place] [facility] [address] [id number], [place] [address] 1599 Dec, [facility] [place] [facility] [address] [id number], [place] [address] 6353 Dec, [facility] [place] [facility] [address] [id number] [place] [address]- 6843 Dec, [facility] [place] [facility] [address] [id number] [place] [address]- 5731 Nov, [facility] [place] [facility] [address] [id number] [place] [address] 6007 Nov, [facility] [place] [facility] [address] [id number] [place] [address]- 7991 30 Nov, 2011 [facility] [place] [facility] [address] [id number] [place] [address]- 4296 26 Nov, 2011 [facility] [place] [facility] [address] [id number] [place] [address]- 8[address] 24 Nov, 2011 [facility] [place] [facility] [address] [id number] [place] [address]- 2766 24 Nov, 2011 [facility] [place] [facility] [address] [id number] [place] [address]- 1824 15 Nov, 2011 [facility] [place] [facility] [address] [id number] [place] [address], [place] [address]- [address]763 15 Nov, 2011 [facility] [place] [facility] [address] [id number] [place] [address]- 0189 Nov, [facility] [place] [facility] [address] [id number] [place] [address]- 0717 10 Nov, 2011 [facility] [place] [facility] [address] [id number] [place] [address]- 2036 Nov, [facility] [place] [facility] [address] [id number] [place] [address]- 7575 09 Nov, 2011 [facility] [place] [facility] [address] [facility] [id number] [place] [address]- 8738 04 Nov, 2011 [facility] [place] [facility] [address] [id number] [place] [address]- 3420 30 Sep, 2011 [facility] [place] [facility] [address] [id number], [place] [address]- [address] 27 Sep, 2011 [facility] [place] [facility] [address] [id number] [place] [address]- 1057 24 Sep, 2011 [facility] [place] [facility] [address] [id number], [place] [address]84 20 Sep, 2011 [facility] [place] [facility] [address] [id number], [place] [address] 11 Sep, 2011 [facility] [place] [facility] [address] [id number] [place] [address]- 3670 Oct, [facility] [place] [facility] [address] [id number] [place] [address]- 3707 Sep, [facility] [place] [facility] [address] [id number] [place] [address]- 3756 Sep, [facility] [place] [facility] [address] [id number] [place] [address]- 9826 Sep, [facility] [place] [facility] [address] [id number] [place] [address]- 9967 Sep, [facility] [place] [facility] [address] [id number] [place] [address]- 2121 Aug, [facility] [place] [facility] [address] [id number] [place] [address]- 6638 Aug, [facility] [place] [facility] [address] [id number] [place] [address]- 8880 Aug, [facility] [place] [facility] [address] [id number] [place] [address]- 2106 Jul, [facility] [place] [facility] [address] [id number] [place] [address]- 4153 Jul, [facility] [place] [facility] [address] [id number] [place] [address]- 0416 Jul, [facility] [place] [facility] [address] [id number] [place] [address]- 4070 Jul, [facility] [place] [facility] [address] [id number] [place] [address]- 0611 June, [facility] [place] [facility] [address] [id number] [place] [address]- 8843 June, [facility] [place] [facility] [address] [id number] [place] [address] June, [facility] [place] [facility] [address] [id number] [place] [address]- 1544 June, [facility] [place] [facility] [address] [id number] [place] [address]- 7666 June, [facility] [place] [facility] [address] [id number] [place] [address]- 5595 June, [facility] [place] [facility] [address] [id number] [place] [address] May, [facility] [place] [facility] [address] [id number] [place] [address] May, [facility] [place] [facility] [address] [id number] [place] [address] May, [facility] [place] [facility] [address] [id number] [place] [address] May, [facility] [place] [facility] [address] [id number] [place] [address] May, [facility] [place] [facility] [address] [id number] [place] [address] May, [facility] [place] [facility] [address] [id number] [place] [address] May, [facility] [place] [facility] [address] [id number] [place] [address] May, [facility] [place] [facility] [address] [id number] [place] [address]473 May, [facility] [place] [facility] [address] [id number] [address] Apr, [facility] [place] [facility] [address] [id number] [place] [address] Mar, [facility] [place] [facility] [address] [id number] [place] Mar, [facility] [place] [facility] [address] [id number] [place] [address] Mar, [facility] [place] [facility] [address] [id number] [place] [address] 10 Mar, 2011 [facility] [address] [id number] [place] [address] Feb, [facility] [place] [facility] [address] [id number] [place] [address] 9900 Feb, [facility] [place] [facility] [address] [id number] [place] [address] 3941 Feb, [facility] [place] [facility] [address] [id number] [place] [address] Jan, [facility] [place] [facility] [address] [id number] [place] [address] Jan, [facility] [place] [facility] [address] [id number] [place] [address]- [address] 14 Jan, 2011 [facility] [place] [facility] [address] [id number] [place] [address]183 29 Dec, 2010 [facility] [place] [facility] [address] [id number] [place] [address] 28 Dec, 2010 [facility] [place] [facility] [address] [id number] [place] [address] 130[address] 16 Dec, 2010 [facility] [address] [facility] [id number] [place] [address] 9680 15 Dec, 2010 [facility] [place] [facility] [address] [id number] [place] [address] 6180 31 Nov, 2010 [facility] [place] [facility] [address] [id number] [place] [address] 7370 31 Nov, 2010 [facility] [place] [facility] [address] [id number] [place] [address]- 7736 19 Nov, 2010 [facility] [place] [facility] [address] [id number] [place] [address]179 18 Nov, 2010 [facility] [place] [facility] [address] [id number] [place] [address] 69[address] 13 Oct, 2010 [facility] [place] [facility] [address] [id number] [place] [address] Jul, [facility] [place] [facility] [address] [id number] [place] [address] Jan, [facility] [place] [facility] [address] [id number] [place] [address] 5942 30 Dec, 2009 [facility] [place] [facility] [address] [id number] [place] [address] 45[address] Dec, [facility] [place] [facility] [address] [id number] [place] [address] Dec, [facility] [place] [facility] [address] [id number] [place] [address] Dec, [facility] [place] [facility] [address] [id number] [place] [address] Dec, [facility] [place] [facility] [address] [id number] [place] [address]896 Dec, [facility] [place] [facility] [address] [id number] [place] [address]666 Nov, [facility] [place] [facility] [address] [id number] [place] [address] Nov, [facility] [place] [facility] [address] [id number] [place] [address] Nov, [facility] [place] [facility] [address] [id number] [place] [address] 1541 Apr, [facility] [place] [facility] [address] [id number] [place] [address] 2546 17 Apr, 2009 [facility] [place] [facility] [address] [id number] [place] [address] 2546 29 Jan, 2009 [facility] [place] [facility] [address] [id number] [place] [address] 28 Jan, 2009 [facility] [place] [facility] [address] [id number], [place] [address] 23 Jan, 2009 [facility] [address] [facility] [id number], [place] [address] 2756 17 Jan, 2009 [facility] [address] [facility] [id number], [place] [address] 14 Jan, 2009 [facility] [address] [facility] [id number], [place] [address] Jan, [facility] [address] [facility] [id number], [place] [address] 30 Dec, 2008 [facility] [address] [facility] [id number] [place] [address] Dec, [facility] [address] [facility] [id number], [place] [address] Dec, [facility] [id number], [place] [address] Dec, [facility] [address] [facility] [id number], [place] [address]85 Dec, [facility] [id number] [address] [address] Dec, [facility] [address] [id number], [place] [address] Nov, [facility] [id number], [place] [address] Nov, [facility] [address] [facility] [id number], [place] [address]60 Aug, [facility] [address] [facility] [id number], [place] [address] Jul, [facility] [address] [facility] [id number], [place] [address] June, [facility] [address] [id number], [place] [address] Apr, IMMUNIZATIONS No Known Immunizations SOCIAL HISTORY Never Assessed REASON FOR VISIT Controlled Medication Refill PLAN OF CARE VITAL SIGNS MEDICATIONS Medication Instructions Dosage Frequency Start Date End Date Duration Status Clonazepam 0.5 MG Orally 2 times a day 1 tablet 12h 28 days Active RESULTS No Results PROCEDURES [...] of loosened hardware/hip replacement ( [facility] in [place]) 09/2008 Hospitalization History in pt rehab s/p left hip repair 09/2008-11/2008 Hospitalization History [facility] 07/2009
--- OUTSIDE RECORDS SUMMARY | 2017-10-26 13:47 | XMS REPORT ---
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 Active 267710064 Problem Panic attacks F41.0 Active 134933423 Problem Seasonal allergic rhinitis due to other allergic trigger J30.89 Active 104008584 Problem Dementia without behavioral disturbance, unspecified dementia type F03.90 Active 87411884 Problem 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5 MG Orally 2 times a day- MUST ATTEND APPT ON 06/03/16 FOR FURTHER REFILLS 1 tablet Active Meloxicam 7.5 MG orally 2 times a day 1 tablet 12h Aug, 30 days Active Duloxetine HCl 60 mg Orally 2 times a day 1 capsule 12h 30 days Active PredniSONE 20 mg Orally Once a day 2 tablets 24h June, Jul, 05 days Active Atpkoswo-Jyfmbt-CD-Thonzonium 3.3-3-10-0.5 MG/ML Otic Three times a day 5 drops into affected ear 8h Feb, 10 day(s) Active Artificial Tear Solution Ophthalmic 2 times a day 2 drops as needed 12h Active Famotidine 20 mg Orally Twice a day 1 tablet 12h 17 Jun, 2016 30 day(s ) Active BusPIRone HCl 5 MG TAKE ONE TABLET BY MOUTH TWICE DAILY 30 Active RESULTS No Results PROCEDURES Procedure Date Ordered Result Body Site [facility] VISIT ESTABLISHED PATIENT July 24, 2016 IMMUNIZATIONS No Known Immunizations MEDICAL (GENERAL) HISTORY [...] of loosened hardware/hip replacement ( [facility] in [place]) 09/2008 Hospitalization History in pt rehab s/p left hip repair 09/2008-11/[address] [facility] 07/2009
--- OUTSIDE RECORDS SUMMARY | 2017-10-26 13:48 | XMS REPORT ---
Author Author KONGB[facility] Address [address] [place] [address] Care Team Providers Care Photostatic Copy Maker Name Role Phone BABAK TRIANA Unavailable PROBLEMS Type Condition ICD9-CM Code DEC61-YG Code Onset Dates Condition Status SNOMED Code Problem 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 Active 844054982 Problem Generalized osteoarthritis M15.9 Active 357433979 Problem Meningioma D32.9 Active 418530882 Problem Other chronic pain G89.29 Active 94639296 Problem Panic attacks F41.0 Active 995185732 Problem Generalized anxiety disorder F41.1 Active 093232650 Problem Dementia without behavioral disturbance, unspecified dementia type F03.90 Active 24758187 Problem Seasonal allergic rhinitis due to other allergic trigger J30.89 Active 269685981 Problem Anxiety disorder, unspecified F41.9 Active 201330171 ALLERGIES No Known Allergies ENCOUNTERS Encounter Location Date Diagnosis [place] [address] [address] May, Other chronic pain G89.29 and Generalized anxiety disorder F41.1 [place] [address] [place] [id number] [place] [address] 95611- 6278 Apr, Housing problems Z59.9 and Panic attacks F41.0 [facility] [address] [id number] [place] [address] 30752- 1092 Mar, Panic attacks F41.0 [place] [address] 58255- 1572 Feb, [place] [address] [place] [id number] [place] [address] 96778- 5242 Feb, Panic attacks F41.0 [place] [address] 69223- 4551 Feb, Pain in right knee M25.561 ; Pain in left knee M25.562 ; Other chronic pain G89.29 ; Housing problems Z59.9 ; Dementia without behavioral disturbance, unspecified dementia type F03.90 ; Generalized anxiety disorder F41.1 and Advance directive declined by patient Z78.9 [facility] [address] [place] [id number] [place] [address] 76975- 8382 Jan, Panic attacks F41.0 [place] [address] [place] [id number] [place] [address] 39777- 7434 Jan, Panic attacks F41.0 [place] [address] [place] [id number] [place] [address] 20132- 4083 Dec, Panic attacks F41.0 [facility] [address] [id number] [place] [address] 21907 -3167 Nov, Allergic contact dermatitis due to cosmetics L23.2 [place] [address] [place] [id number] [place] [address] 82020- 8188 Nov, Panic attacks F41.0 [place] [address] [place] [id number] [place] [address] 53884- 0579 Oct, Panic attacks F41.0 [place] [address] [place] [id number] [place] [address] 25277- 9860 Sep, Panic attacks F41.0 ; Insect bite, initial encounter W57.XXXA and 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 [place] [address] [place] [id number] [place] [address] 46364- 1457 Sep, [place] [address] [place] [id number] [place] [address] 54346- 6258 Aug, Generalized anxiety disorder F41.1 [place] [address] [place] [id number] [place] [address] 05461- 2364 Jul, [facility] [address] [address] [id number] [place] [address] 17002 -5301 June, Seasonal allergic rhinitis due to other allergic trigger J30.89 [facility] [address] [address] [id number] [place] [address] 27656- 0380 June, [facility] [address] [place] [id number] [place] [address] 61729- 0085 June, [facility] [address] [address] [id number] [place] [address] 99072 -8997 June, Dysuria R30.0 and RLQ abdominal pain R10.31 [facility] [address] [place] [id number] [place] [address] 06677- 7679 May, Generalized anxiety disorder F41.1 ; Generalized osteoarthritis M15.9 and Dementia without behavioral disturbance, unspecified dementia type F03.90 [facility] [address] [place] [id number] [place] [address] 38144- 4610 May, [facility] [address] [place] [id number] [place] [address] 39751- 0484 May, [facility] [address] [place] [id number] [place] [address] 80064- 6584 May, [facility] [address] [place] [id number] [place] [address] 28201- 1381 Apr, [facility] [address] [place] [id number] [place] [address] 41912- 1245 Apr, Generalized anxiety disorder F41.1 [facility] [address] [place] [id number] [place] [address] 17242- 8888 Apr, [facility] [address] [place] [id number] [place] [address] 93480- 8356 Apr, [facility] [address] [place] [id number] [place] [address] 77560- 9933 Apr, [facility] [address] [place] [id number] [place] [address] 51662- 4280 Apr, Generalized anxiety disorder F41.1 [facility] [address] [address] 8714 Mar, [facility] [id number] [place] [address] 72952- 4644 Mar, [facility] [address] [address]- 7876 Mar, [facility] [id number] [place] [address] 99321- 1144 Mar, [facility] [id number] [place] [address] 69759- 4779 Mar, Generalized anxiety disorder F41.1 [facility] [address] [place] [id number] [place] [address] 95953- 5923 Feb, Anxiety disorder, unspecified F41.9 [facility] [address] [place] [id number] [place] [address] 48973- 8560 Feb, [facility] [address] [place] [id number] [place] [address] 24983- 0867 Feb, [facility] [id number] [place] [address] 69911- 6809 Feb, [facility] [address], [place] [address] Feb, Urinary frequency R35.0 and Acute cystitis without hematuria N30.00 [facility] [address] [address]- 2920 Feb, [facility] [address] [place] [address]- 4861 Jan, [facility] [address] [place] [id number] [place] [address] 11208- 8174 Jan, [facility] [address] [place] [address]- 8958 Dec, [facility] [id number] [place] [address] 16619- 4307 14 Dec, 2015 [facility] [address] [place] [id number] [address]- 1476 Dec, Edema, unspecified type R60.9 [facility] [address] [facility] [id number] [place] [address]- 0256 Dec, [facility] [address] [place] [id number] [place] [address] 55148- 8598 Dec, [facility] [address] [facility] [id number] [place] [address] 94417- 1898 30 Oct, 2015 Generalized anxiety disorder F41.1 [facility] [id number] [place] [address], [place] [address]- 8278 20 Oct, 2015 [facility] [address] [place] [id number] [place] [address] 82135- 0834 16 Oct, 2015 [facility] [id number] [place] [address] 84319- 2514 15 Oct, 2015 [facility] [address] [facility] [id number] [address]- 8670 Oct, [facility] [address], [place] [address]- 3861 Aug, Anxiety disorder, unspecified F41.9 [facility] [address], [place] [address]- 2933 Jul, Anxiety disorder, unspecified F41.9 [facility] [address] [place] [id number] [address]- 6542 Jul, Generalized anxiety disorder F41.1 [facility] [address] [place] [id number] [address]- 0375 Jul, [facility] [address] [place] [id number] [address]- 1996 June, [facility] [address] [place] [address]- 5311 June, [facility] [id number] [place] [address] 11373- 7424 June, [facility] [address] [place] [id number] [place] [address] 77154- 7376 June, [facility] [address] [place] [id number] [place] [address] 59853- 9078 May, [facility] [address] [place] [id number] [place] [address] 61647 -2625 May, Dementia without behavioral disturbance, unspecified dementia type F03.90 and Generalized osteoarthritis M15.9 [facility] [address] [place] [id number] [place] [address] 76649- 4044 May, Generalized osteoarthritis M15.9 and 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 [facility] [address] [place] [id number] [place] [address] 70657- 5845 Apr, [facility] [address] [place] [id number] [place] [address] 35764- 2756 Apr, [facility] [address] [place] [id number] [place] [address] 96953- 8338 Apr, [facility] [address] [place] [id number] [place] [address] 07097- 0939 Mar, [facility] [address] [place] [id number] [place] [address] 29852- 3951 Mar, [facility] [address] [place] [id number] [place] [address] 10124- 5146 Mar, Generalized anxiety disorder F41.1 [facility] [address] [place] [id number] [place] [address] 94345- 9534 Feb, Other infective acute otitis externa of right ear H60.391 [facility] [address] [place] [id number] [place] [address] 53005- 8216 Dec, Dysuria R30.0 ; Generalized osteoarthritis M15.9 and Gastroesophageal reflux disease, esophagitis presence not specified K21.9 [facility] [address] [place] [id number] [place] [address] 27666- 1383 Dec, [facility] [address] [place] [id number] [place] [address] 04843- 4065 Dec, Generalized anxiety disorder F41.1 ; Encounter for immunization Z23 and Dementia F03.90 [facility] [address] 66451- 8013 Nov, [facility] [address] 00595- 8000 Oct, [facility] [address] 65591- 1088 Oct, 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 ; Chronic pain 338.29 ; Anxiety 300.00 and Dementia 294.20 [facility] [address] [place] [id number] [place] [address] 69568- 1550 Oct, [facility] [address] [place] [id number] [place] [address] 14338- 8932 Aug, Generalized anxiety disorder 300.02 and Dementia 294.20 [facility] [address] [place] [id number] [place] [address] 88133- 2186 Aug, [facility] [address] [place] [id number] [place] [address] 86752- 8744 Aug, Anxiety 300.00 and Chronic pain 338.29 [facility] [address] [place] [id number] [place] [address] 80869- 4030 Jul, [facility] [address] [place] [id number] [place] [address] 34433- 7624 Jul, [facility] [address] [place] [id number] [place] [address] 33648- 2115 June, [facility] [address] [place] [id number] [place] [address] 01943- 3805 June, Anxiety, generalized 300.02 ; Dementia 294.20 and No condition on [place] II V71.09 [facility] [place] [facility] [address] [id number] [place] [address]- 4155 14 May, 2014 [facility] [place] [facility] [address] [id number] [place] [address]- 2846 May, [facility] [place] [facility] [address] [id number] [place] [address]- 0140 Apr, [facility] [place] [facility] [address] [id number] [place] [address]- 0982 Apr, [facility] [place] [facility] [address] [id number] [place] [address]- 6914 Apr, [facility] [place] [facility] [address] [id number] [place] [address]- 7617 Apr, [facility] [place] [facility] [address] [facility] [id number] [place] [address]- 2938 Apr, [facility] [place] [facility] [address] [facility] [id number] [place] [address]- 9471 Apr, [facility] [place] [facility] [address] [facility] [id number] [place] [address]- 0791 Apr, [facility] [place] [facility] [address] [facility] [id number] [place] [address]- 1059 Apr, [facility] [place] [facility] [address] [facility] [id number], [place] [address]- 4206 Apr, [facility] [place] [facility] [address] [facility] [id number], [place] [address]- 4636 Apr, [facility] [place] [facility] [address] [id number] [place] [address]- 9110 Apr, [facility] [place] [facility] [address] [id number] [place] 5789 Apr, [facility] [place] [facility] [address] [facility] [id number] 5991 Apr, [facility] [place] [facility] [address] [id number] [place] [address]- 4243 Apr, [facility] [place] [facility] [address] [id number] [place] [address]- 4281 Apr, [facility] [place] [facility] [address] [id number] [place] [address]- 3576 Apr, [facility] [place] [facility] [address] [id number] [place] [address]- 0704 Mar, 2014 [facility] [place] [facility] [address] [id number] [place] [address]- 4325 Mar, 2014 [facility] [place] [facility] [address] [id number] [place] [address]- 4363 Mar, 2014 [facility] [place] [facility] [address] [id number] [place] [address]- 9046 Mar, 2014 [facility] [place] [facility] [address] [facility] [id number] [place] [address]- 5826 Mar, 2014 [facility] [place] [facility] [address] [id number] [place] [address]- 2625 Mar, 2014 [facility] [place] [facility] [address] [place] [id number] [place] [address]- 4071 Mar, 2014 [facility] [place] [facility] [address] [facility] [id number] [place] [address]- 7658 Mar, 2014 [facility] [place] [facility] [address] [facility] [id number] [place] [address]- 1615 Mar, 2014 [facility] [place] [facility] [address] [id number], [place] [address]- 2700 Mar, 2014 [facility] [place] [facility] [address] [id number] [place] [address]- 6335 Mar, 2014 [facility] [place] [facility] [address] [facility] [id number], [place] [address]- 7272 Mar, 2014 [facility] [place] [facility] [address] [facility] [id number], [place] [address]- 8726 Mar, 2014 [facility] [place] [facility] [address] [id number] [place] [address]- 8636 17 Mar, 2014 [facility] [place] [facility] [address] [id number] [place] 0516 17 Mar, 2014 [facility] [place] [facility] [address] [facility] [id number] [place] [address] 2546 17 Mar, 2014 [facility] [place] [facility] [address] [id number] [place] [address]- 2547 Mar, 2014 [facility] [place] [facility] [address] [id number] [place] [address]- 2816 Mar, 2014 [facility] [place] [facility] [address] [facility] [id number] [place] [address]- 1286 Mar, 2014 [facility] [place] [facility] [address] [facility] [id number] [place] [address]- 6121 Mar, 2014 [facility] [place] [facility] [address] [facility] [id number] [place] [address]- 2540 Mar, 2014 [facility] [place] [facility] [address] [facility] [id number] [place] [address]- 2504 Mar, 2014 [facility] [place] [facility] [address] [facility] [id number] [place] [address]- 3160 Mar, 2014 [facility] [place] [facility] [address] [facility] [id number] [place] [address]- 2546 Mar, 2014 [facility] [place] [facility] [address] [facility] [id number] [place] [address]- 2541 Mar, 2014 [facility] [place] [facility] [address] [facility] [id number] [place] [address]- 9413 Mar, 2014 [facility] [place] [facility] [address] [facility] [id number] [place] [address]- 8616 Feb, [facility] [place] [facility] [address] [facility] [id number] [place] [address]- 4690 Feb, [facility] [place] [facility] [address] [id number] [place] [address]- 2969 Feb, [facility] [place] [facility] [address] [id number] [place] [address]- 4387 Feb, [facility] [place] [facility] [address] [id number] [place] [address]- 7325 Feb, [facility] [place] [facility] [address] [id number] [place] [address]- 7411 Feb, [facility] [place] [facility] [address] [id number] [place] [address]- 9998 Feb, [facility] [place] [facility] [address] [id number] [place] [address]- 8588 Feb, [facility] [place] [facility] [address] [id number] [place] [address]- 4772 Feb, [facility] [place] [facility] [address] [id number] [place] [address]- 8634 Feb, [facility] [place] [facility] [address] [id number] [place] [address]- 6104 Feb, [facility] [place] [facility] [address] [id number] [place] [address]- 4115 Feb, [facility] [place] [facility] [address] [id number] [place] [address]- 6828 Feb, [facility] [place] [facility] [address] [id number], [place] [address]- 5516 Feb, [facility] [place] [facility] [address] [id number] [place] [address]- 8851 Feb, [facility] [place] [facility] [address] [id number] [place] [address]- 1776 Jan, [facility] [place] [facility] [address] [id number] [place] [address]- 2288 Jan, [facility] [place] [facility] [address] [id number], [place] [address]- 8313 Jan, [facility] [place] [facility] [address] [id number] [place] [address]- 6510 Jan, [facility] [place] [facility] [address] [id number] [place] [address]- 6196 Jan, [facility] [place] [facility] [address] [id number] [place] [address]- 8976 Jan, [facility] [place] [facility] [address] [id number] [place] [address]- 7344 Jan, [facility] [place] [facility] [address] [id number] [place] [address]- 7430 Jan, [facility] [place] [facility] [address] [id number] [place] [address]- 7909 Jan, [facility] [place] [facility] [address] [id number] [place] [address]- 4000 Jan, [facility] [place] [facility] [address] [id number] [place] [address]- 9729 Jan, [facility] [place] [facility] [address] [id number] [place] [address]- 8837 Jan, [facility] [place] [facility] [address] [id number] [place] [address]- 4976 Jan, [facility] [place] [facility] [address] [id number] [place] [address]- 0300 Jan, [facility] [place] [facility] [address] [id number] [place] [address]- 6509 Jan, [facility] [place] [facility] [address] [id number] [place] [address]- 3243 Jan, [facility] [place] [facility] [address] [id number] [place] [id number] Jan, [facility] [place] [facility] [address] [id number] [place] 3782 Jan, [facility] [place] [facility] [address] [id number] [place] [address]- 8539 Jan, [facility] [place] [facility] [address] [id number] [place] 5715 Jan, [facility] [place] [facility] [address] [id number] [place] [address]- 1241 Dec, [facility] [place] [facility] [address] [id number] [place] [address]- 0889 Dec, [facility] [place] [facility] [address] [id number] [place] [address]- 4110 Dec, [facility] [place] [facility] [address] [id number] [place] 1864 Dec, [facility] [place] [facility] [address] [id number] [place] [address]- 0418 Dec, [facility] [place] [facility] [address] [id number] [place] [address]- 4713 Dec, [facility] [place] [facility] [address] [id number] [place] [address]- 5454 Dec, [facility] [place] [facility] [address] [id number] [place] [address] Nov, [facility] [place] [facility] [address] [id number] [place] [address] Nov, [facility] [place] [facility] [address] [id number] [place] [address] Nov, [facility] [place] [facility] [address] [id number] [place] [address] 24 Nov, 2013 [facility] [place] [facility] [address] [id number] [place] [address] 15 Nov, 2013 [facility] [place] [facility] [address] [id number] [place] [address] 15 Nov, 2013 [facility] [place] [facility] [address] [id number] [place] [address] Nov, [facility] [place] [facility] [address] [id number] [place] [address] 13 Nov, 2013 [facility] [place] [facility] [address] [id number] [place] [address] Nov, [facility] [place] [facility] [address] [id number] [place] [address] Nov, [facility] [place] [facility] [address] [id number] [place] [address] 29 Oct, 2013 [facility] [place] [facility] [address] [id number] [place] [address] 29 Oct, 2013 [facility] [place] [facility] [address] [id number] [place] [address] 15 Oct, 2013 [facility] [place] [facility] [address] [id number] [place] [address]47 15 Oct, 2013 [facility] [place] [facility] [address] [id number] [place] [address] 0968 15 Oct, 2013 [facility] [place] [facility] [address] [id number] [place] [address] 15 Oct, 2013 [facility] [place] [facility] [address] [id number] [place] [address] 10 Oct, 2013 [facility] [place] [facility] [address] [id number] [place] [address]- [address] 10 Oct, 2013 [facility] [place] [facility] [address] [id number], [place] [address] 02 Oct, 2013 [facility] [place] [facility] [address] [id number] [place] [address] Oct, [facility] [place] [facility] [address] [id number] [place] [address] Sep, [facility] [place] [facility] [address] [id number] [place] [address] Sep, [facility] [place] [facility] [address] [id number] [place] [address] Sep, [facility] [place] [facility] [address] [id number] [place] [address]- [address] Sep, [facility] [place] [facility] [address] [id number] [place] [address] Sep, [facility] [place] [facility] [address] [id number] [place] [address]- [address] Sep, [facility] [place] [facility] [address] [id number] [place] [address]- [address] Sep, [facility] [place] [facility] [address] [id number] [place] [address] Sep, [facility] [place] [facility] [address] [id number] [place] [address] Sep, [facility] [place] [facility] [address] [id number] [place] [address] Sep, [facility] [place] [facility] [address] [id number] [place] [address] Aug, [facility] [place] [facility] [address] [id number] [place] [address]- [address] Aug, [facility] [place] [facility] [address] [id number] [place] [address] Aug, [facility] [place] [facility] [address] [id number] [place] [address] Aug, [facility] [place] [facility] [address] [id number] [place] [address] Aug, [facility] [place] [facility] [address] [id number] [place] [address] Aug, [facility] [place] [facility] [address] [id number] [place] [address] Aug, [facility] [place] [facility] [address] [id number] [place] [address] Aug, [facility] [place] [facility] [address] [id number] [place] [address] 15 Aug, 2013 [facility] [place] [facility] [address] [id number] [place] [address] 15 Aug, 2013 [facility] [place] [facility] [address] [id number] [place] [address] 07 Aug, 2013 [facility] [place] [address] [id number] [place] [address] 07 Aug, 2013 [facility] [address] [id number] [place] [address] 23 Jul, 2013 [facility] [place] [facility] [address] [id number] [place] [address] 6984 23 Jul, 2013 [facility] [place] [facility] [address] [id number] [place] [address] 8886 20 Jul, 2013 [facility] [place] [facility] [address] [id number] [place] [address]- 1165 20 Jul, 2013 [facility] [place] [facility] [address] [id number] [place] [address]- 0210 20 Jul, 2013 [facility] [place] [facility] [address] [id number] [place] [address]- 1159 20 Jul, 2013 [facility] [place] [facility] [address] [id number] [place] [address]- 2854 17 Jul, 2013 [facility] [place] [facility] [address] [id number] [place] [address]- 9537 16 Jul, 2013 [facility] [place] [facility] [address] [id number] [place] [address] 4289 16 Jul, 2013 [facility] [place] [facility] [address] [id number] [place] [address]- 5334 14 Jul, 2013 [facility] [place] [facility] [address] [id number] [place] [address]- 2088 14 Jul, 2013 [facility] [place] [facility] [address] [id number] [place] [address]- 5238 Jul, [facility] [place] [facility] [address] [id number] [place] [address]- 3946 Jul, [facility] [place] [facility] [address] [id number] [place] [address]- 3845 Jul, [facility] [place] [facility] [address] [id number] [place] [address]- 7754 Jul, [facility] [place] [facility] [address] [id number] [place] [address]- 9552 Jul, [facility] [place] [facility] [address] [id number] [place] [address]- 4611 Jul, [facility] [place] [facility] [address] [id number] [place] [address]- 1632 June, [facility] [place] [facility] [address] [id number] [place] [address]- 0193 June, [facility] [place] [facility] [address] [id number] [place] [address]- 1074 June, [facility] [place] [facility] [address] [id number] [place] [address]- 7537 June, [facility] [place] [facility] [address] [id number] [place] [address]- 5355 June, [facility] [place] [facility] [address] [id number] [place] [address]- 2386 June, [facility] [place] [facility] [address] [id number] [place] [address]- 9645 June, [facility] [place] [facility] [address] [id number] [place] [address]- 3505 June, [facility] [place] [facility] [address] [id number] [place] [address]- 5769 June, [facility] [place] [facility] [address] [id number] [place] [address]- 2075 June, [facility] [place] [facility] [address] [id number] [place] [address]- 8636 June, [facility] [address] [id number] [place] [address]- 5349 June, [facility] [address] [id number] [place] [address] 4013 June, [facility] [address] [id number] [place] [address]- 3947 June, [facility] [address] [id number] [place] [address]- 6416 June, [facility] [address] [id number] [place] [address]- 9373 June, [facility] [address] [id number] [place] [address]- 5551 June, [facility] [address] [id number] [place] [address]- 6002 June, [facility] [address] [id number] [place] [address]- 1668 June, [facility] [address] [id number] [place] [address]- 2149 June, [facility] [address] [id number] [place] [address]- 2604 June, [facility] [address] [id number] [place] [address]- 5088 June, [facility] [address] [id number] [place] [address]- 5151 June, [facility] [place] [facility] [address] [id number] [place] [address]- 225[address] June, [facility] [place] [facility] [address] [id number] [place] [address]- 2287 June, [facility] [address] [id number] [place] [address]- 8463 June, [facility] [address] [id number] [place] [address]- 2710 June, [facility] [place] [facility] [address] [id number] [place] [address]- 5721 June, [facility] [place] [facility] [address] [id number] [place] [address]- 7246 June, [facility] [place] [facility] [address] [id number] [place] [address]- 2124 June, [facility] [address] [id number] [place] [address]- 2069 June, [facility] [place] [facility] [address] [id number] [place] [address]- 4250 June, [facility] [address] [id number] [place] [address]- 7016 May, [facility] [place] [facility] [address] [id number] [place] [address]- 1126 May, [facility] [place] [facility] [address] [id number] [place] [address]- 3296 May, [facility] [place] [facility] [address] [id number] [place] [address]- 5510 May, [facility] [place] [facility] [address] [id number] [place] [address]- 4421 May, [facility] [place] [facility] [address] [id number] [place] [address]- 2282 May, [facility] [place] [facility] [address] [id number] [place] [address]- 0603 May, [facility] [place] [facility] [address] [id number] [place] [address]- 8089 May, [facility] [place] [facility] [address] [id number] [place] [address]- 5280 May, [facility] [place] [facility] [address] [id number] [place] [address]- 1008 May, [facility] [place] [facility] [address] [id number] [place] [address]- 5350 May, [facility] [place] [facility] [address] [id number] [place] [address]- 1269 May, [facility] [place] [facility] [address] [id number] [place] [address]- 7084 May, [facility] [place] [facility] [address] [id number] [place] [address]- 7675 May, [facility] [place] [facility] [address] [id number] [place] [address]- 6524 May, [facility] [place] [facility] [address] [id number] [place] [address]- 6342 Apr, [facility] [place] [facility] [address] [id number] [place] [address]- 7496 Apr, [facility] [place] [facility] [address] [id number] [place] [address]- 7998 Apr, [facility] [place] [facility] [address] [id number] [place] [address]- 2631 Apr, [facility] [place] [facility] [address] [id number] [place] [address]- 5932 Apr, [facility] [place] [facility] [address] [id number] [place] [address]- 4848 Apr, [facility] [place] [facility] [address] [id number] [place] [address]- 7963 Mar, [facility] [place] [facility] [address] [id number] [place] [address]- 4953 Mar, [facility] [place] [facility] [address] [id number] [place] [address]- 0607 Mar, [facility] [place] [facility] [address] [id number] [place] [address]- 7215 Mar, [facility] [place] [facility] [address] [id number] [place] [address]- 1602 Mar, [facility] [place] [facility] [address] [id number] [place] [address]- 9078 Mar, [facility] [place] [facility] [address] [id number] [place] [address]- 4046 Mar, [facility] [place] [facility] [address] [id number] [place] [address]- 6766 Mar, [facility] [place] [facility] [address] [id number] [place] [address]- 5199 Feb, [facility] [place] [facility] [address] [id number] [place] [address]- 0883 Feb, [facility] [place] [facility] [address] [id number] [place] [address]- 1454 Feb, [facility] [place] [facility] [address] [id number] [place] [address]- 2726 Feb, [facility] [place] [facility] [address] [id number] [place] [address]- 2212 Feb, [facility] [place] [facility] [address] [id number] [place] [address]- 0870 Feb, [facility] [place] [facility] [address] [id number] [place] [address]- 5371 Feb, [facility] [place] [facility] [address] [id number] [place] [address]- 7956 Feb, [facility] [place] [facility] [address] [id number] [place] [address]- 7307 Feb, [facility] [place] [facility] [address] [id number] [place] [address]- 2515 Feb, [facility] [place] [facility] [address] [id number] [place] [address]- 6510 Jan, [facility] [place] [facility] [address] [id number], [place] [address]- 2788 Jan, [facility] [place] [facility] [address] [id number] [place] [address]- 4326 Jan, [facility] [place] [facility] [address] [id number] [place] [address]- 3070 Jan, [facility] [place] [facility] [address] [id number] [place] [address]- 5702 Jan, [facility] [place] [facility] [address] [id number] [place] [address]- 5319 Jan, [facility] [place] [facility] [address] [id number] [place] Jan, [facility] [place] [facility] [address] [id number] [place] [address]- 0204 Jan, [facility] [place] [facility] [address] [id number] [place] [address]- 6035 Dec, [facility] [place] [facility] [address] [id number] [place] [address]- 6609 Dec, [facility] [place] [facility] [address] [id number], [place] [address]- 1822 Dec, [facility] [place] [facility] [address] [id number], [place] [address]- 1744 Dec, [facility] [place] [facility] [address] [id number], [place] [address]- 2900 Dec, [facility] [place] [facility] [address] [id number], [place] [address]- 6624 Dec, [facility] [place] [facility] [address] [id number], [place] [address]- 7907 Dec, [facility] [place] [facility] [address] [id number], [place] [address]- 3863 Dec, [facility] [place] [facility] [address] [id number] [place] [address]- 3045 Nov, [facility] [place] [facility] [address] [id number] [place] [address]- 8867 22 Nov, 2012 [facility] [address] [id number] [place] [address]- 2824 14 Nov, 2012 [facility] [place] [facility] [address] [id number] [place] [address]- 1959 14 Nov, 2012 [facility] [address] [id number] [place] [address]- 3053 09 Nov, 2012 [facility] [place] [facility] [address] [id number] [place] [address]- 6088 07 Nov, 2012 [facility] [place] [facility] [address] [id number] [place] [address]- 8135 07 Nov, 2012 [facility] [place] [facility] [address] [id number] [place] [address]- 1971 10 Oct, 2012 [facility] [place] [facility] [address] [id number] [place] [address]- 6115 10 Oct, 2012 [facility] [address] [id number] [place] [address]- 4549 05 Oct, 2012 [facility] [place] [facility] [address] [id number] [place] [address]- 1545 Sep, [facility] [place] [facility] [address] [id number] [place] [address]- 9475 Sep, [facility] [place] [facility] [address] [id number] [place] [address]- 2236 Sep, [facility] [place] [facility] [address] [id number] [place] [address]- 0771 Sep, [facility] [place] [facility] [address] [id number] [place] [address]- 7464 Aug, [facility] [place] [facility] [address] [id number] [place] [address]- 2546 17 Aug, 2012 [facility] [place] [facility] [address] [id number] [place] [address]- 2376 Aug, [facility] [address] [id number] [place] [address]- 3033 Aug, [facility] [place] [facility] [address] [id number] [place] [address]- 1890 Aug, [facility] [place] [facility] [address] [id number] [place] [address]- 8970 Jul, [facility] [place] [facility] [address] [id number] [place] [address]- 8413 Jul, [facility] [place] [facility] [address] [id number] [place] [address]- 8643 Jul, [facility] [place] [facility] [address] [id number] [place] [address]- 9066 Jul, [facility] [place] [facility] [address] [id number] [place] [address]- 5657 Jul, [facility] [place] [facility] [address] [id number] [place] [address]- 9154 June, [facility] [place] [facility] [address] [id number] [place] [address]- 7836 June, [facility] [place] [facility] [address] [id number] [place] [address]- 7433 June, [facility] [place] [facility] [address] [id number] [place] [address]- 1089 June, [facility] [place] [facility] [address] [id number] [place] [address]- 2843 June, [facility] [place] [facility] [address] [id number] [place] [address]- 8207 May, [facility] [place] [facility] [address] [id number] [place] [address]- 4867 May, [facility] [place] [facility] [address] [id number] [place] [address]- 3538 May, [facility] [place] [facility] [address] [id number] [place] [address]- 9941 17 May, 2012 [facility] [address] [id number] [place] [address]- 0293 16 May, 2012 [facility] [place] [facility] [address] [id number] [place] [address]- 6746 10 May, 2012 [facility] [place] [facility] [address] [facility] [id number] [place] [address]- 6106 04 May, 2012 [facility] [place] [facility] [address] [id number] [place] [address]- 0320 19 Apr, 2012 [facility] [place] [facility] [address] [id number] [place] [address]- 4682 11 Apr, 2012 [facility] [place] [facility] [address] [id number] [place] [address]- 4158 08 Apr, 2012 [facility] [id number] [place] [address]- 6552 26 Mar, 2012 [facility] [place] [facility] [address] [facility] [id number] [place] [address]- 9343 25 Mar, 2012 [facility] [place] [facility] [id number] [place] [address]- 9650 20 Mar, 2012 [facility] [place] [facility] [address] [place] [id number] [place] [address]- 0669 19 Mar, 2012 [facility] [place] [facility] [id number] [place] [address] 2546 13 Mar, 2012 [facility] [place] [facility] [address] [facility] [id number], [place] [address] 2548 13 Mar, 2012 [facility] [place] [facility] [address] [facility] [id number] [place] [address]- 3854 07 Mar, 2012 [facility] [place] [facility] [address] [facility] [id number] [place] [address]- 1046 07 Mar, 2012 [facility] [place] [facility] [id number] [address] 7436 31 Feb, 2012 [facility] [address] [id number] [place] [address]- 8014 29 Feb, 2012 [facility] [place] [facility] [address] [id number] [place] [address]- 8752 28 Feb, 2012 [facility] [place] [facility] [address] [id number] [place] [address]- 9524 26 Feb, 2012 [facility] [place] [facility] [address] [id number] [place] [address]- 0051 18 Feb, 2012 [facility] [address] [id number] [place] [address]- 0267 15 Feb, 2012 [facility] [place] [facility] [address] [id number] [place] [address]- 3684 14 Feb, 2012 [facility] [place] [facility] [address] [id number] [place] [address]- 0688 27 Jan, 2012 [facility] [place] [facility] [address] [id number] [place] [address]- 4737 27 Jan, 2012 [facility] [place] [facility] [address] [id number] [place] [address]- 2799 Jan, [facility] [place] [facility] [address] [id number] [place] [address]- 6558 Jan, [facility] [place] [facility] [address] [id number] [place] [address]- 4419 Jan, [facility] [place] [facility] [address] [id number] [place] [address]- 2165 27 Jan, 2012 [facility] [place] [facility] [address] [id number] [place] [address]- 4216 Jan, [facility] [place] [facility] [address] [id number] [place] [address]- 4138 26 Jan, 2012 [facility] [place] [facility] [address] [id number] [place] [address]- 2406 13 Jan, 2012 [facility] [place] [facility] [address] [id number] [place] [address]- 1385 13 Jan, 2012 [facility] [place] [facility] [address] [id number] [place] [address]- 6876 11 Jan, 2012 [facility] [place] [facility] [address] [id number] [place] [address]- 2096 11 Jan, 2012 [facility] [place] [facility] [address] [id number] [place] [address]- 9086 Jan, [facility] [place] [facility] [address] [id number] [place] [address]- 3746 Jan, [facility] [place] [facility] [address] [id number] [place] [address]- 8335 29 Dec, 2011 [facility] [place] [facility] [address] [id number] [place] [address]- 6324 29 Dec, 2011 [facility] [place] [facility] [address] [id number] [place] [address]- 0943 Dec, [facility] [place] [facility] [address] [id number] [place] [address]- 3610 Dec, [facility] [place] [facility] [address] [id number] [place] [address]- 6180 Dec, [facility] [place] [facility] [address] [id number] [place] [address]- 0920 27 Dec, 2011 [facility] [place] [facility] [address] [id number] [place] [address]- 1009 Dec, [facility] [place] [facility] [address] [id number], [place] [address]- 254 Dec, [facility] [place] [facility] [address] [id number] [place] [address]- 6194 13 Dec, 2011 [facility] [place] [facility] [address] [id number] [place] [address]- 9666 13 Dec, 2011 [facility] [place] [facility] [address] [id number], [place] [address]- 6650 13 Dec, 2011 [facility] [place] [facility] [address] [id number] [place] [address]- 9383 Dec, [facility] [place] [facility] [address] [id number] [place] [address]- 5355 Dec, [facility] [place] [facility] [address] [id number] [place] [address]- 8631 Dec, [facility] [place] [facility] [address] [id number] [place] [address]- 0013 Dec, [facility] [place] [facility] [address] [id number] [place] [address]- 9035 Dec, [facility] [place] [facility] [address] [id number] [place] [address]- 6620 Dec, [facility] [place] [facility] [address] [id number] [place] [address] Dec, [facility] [place] [facility] [address] [id number] [place] [address] Dec, [facility] [place] [facility] [address] [id number] [place] [address] Dec, [facility] [place] [facility] [address] [id number] [place] [address] Nov, [facility] [place] [facility] [address] [id number] [place] [address] Nov, [facility] [place] [facility] [address] [id number] [place] [address] 30 Nov, 2011 [facility] [place] [facility] [address] [id number] [place] [address] Nov, [facility] [place] [facility] [address] [id number] [place] [address] Nov, [facility] [place] [facility] [address] [id number] [place] [address]- [address] Nov, [facility] [place] [facility] [address] [id number] [place] [address]- [address] 15 Nov, 2011 [facility] [place] [facility] [address] [id number] [place] [address]- [address] 15 Nov, 2011 [facility] [place] [facility] [address] [id number] [place] [address]- 4216 10 Nov, 2011 [facility] [place] [facility] [address] [id number] [place] [address]- [address]26 10 Nov, 2011 [facility] [place] [facility] [address] [id number] [place] [address]- 4936 Nov, [facility] [place] [facility] [address] [id number] [place] [address]- [address] Nov, [facility] [place] [facility] [address] [id number] [place] [address]- [address]49 04 Nov, 2011 [facility] [place] [facility] [address] [id number] [place] [address]- 4285 30 Oct, 2011 [facility] [place] [facility] [address] [id number], [place] [address] 27 Oct, 2011 [facility] [place] [facility] [address] [id number] [place] [address]- [address]186 24 Oct, 2011 [facility] [place] [facility] [address] [id number] [place] [address]- 2810 20 Oct, 2011 [facility] [place] [facility] [address] [id number], [place] [address] 11 Oct, 2011 [facility] [place] [facility] [address] [id number], [place] [address] 11 Oct, 2011 [facility] [place] [facility] [address] [id number] [place] [address]36 24 Sep, 2011 [facility] [place] [facility] [address] [id number], [place] [address] 23 Sep, 2011 [facility] [place] [facility] [address] [id number], [place] [address] 16 Sep, 2011 [facility] [place] [facility] [address] [id number] [place] [address]16 Sep, [facility] [place] [facility] [address] [id number] [place] [address] 9430 Aug, [facility] [place] [facility] [address] [id number] [place] [address] Aug, [facility] [address] [id number] [place] [address]- 2619 Aug, [facility] [place] [facility] [address] [id number] [place] [address] Jul, [facility] [place] [facility] [address] [id number] [place] [address] 1106 Jul, [facility] [place] [facility] [address] [id number] [place] [address] Jul, [facility] [address] [id number] [place] [address] Jul, [facility] [address] [id number] [place] [address] June, [facility] [place] [facility] [address] [id number] [place] [address]105 June[facility] [address] [id number] [place] [address] 3[address] June, [facility] [place] [facility] [address] [id number] [place] [address] 1368 June, [facility] [place] [facility] [address] [id number] [place] [address] 9397 June, [facility] [place] [facility] [address] [id number] [place] [address] June, [facility] [place] [facility] [address] [id number] [place] [address]- [address] May, [facility] [place] [facility] [address] [id number] [place] [address]- 3510 May, [facility] [place] [facility] [address] [id number] [place] [address]- 9220 May, [facility] [place] [facility] [address] [id number] [place] [address]- 9700 24 May, 2011 [facility] [place] [facility] [address] [id number] [place] [address]- 9701 May, [facility] [place] [facility] [address] [id number] [place] [address]- 0878 May, [facility] [address] [id number] [place] [address]- 2053 May, [facility] [place] [facility] [address] [id number] [place] [address]- 2556 May, [facility] [address] [id number] [place] [address]- 5482 May, [facility] [address] [id number] [place] [address]- 9967 Apr, [facility] [address] [id number] [place] [address]- 8947 Mar, [facility] [address] [id number] [place] [address]- 1747 Mar, [facility] [place] [facility] [address] [id number] [place] [address]- [address]006 Mar, [facility] [place] [facility] [address] [id number] [place] [address]- 5265 Mar, [facility] [place] [facility] [address] [id number] [place] [address]- 2140 Feb, [facility] [place] [facility] [address] [id number] [place] [address]- 2672 Feb, [facility] [place] [facility] [address] [id number] [place] [address]- 0201 Feb, [facility] [place] [facility] [address] [id number] [place] [address]- 8068 28 Jan, 2011 [facility] [place] [facility] [address] [id number] [place] [address]- 6106 21 Jan, 2011 [facility] [place] [facility] [address] [id number] [place] [address]- 2158 14 Jan, 2011 [facility] [place] [facility] [address] [id number] [place] [address]- 0415 29 Dec, 2010 [facility] [place] [facility] [address] [id number] [place] [address]- 8079 28 Dec, 2010 [facility] [place] [facility] [address] [id number] [place] [id number], [place] [address]- 8711 16 Dec, 2010 [facility] [place] [facility] [address] [id number] [place] [address]- 2081 15 Dec, 2010 [facility] [place] [facility] [address] [id number] [place] [address], [place] [address]- 3523 31 Nov, 2010 [facility] [place] [facility] [address] [id number] [place] [address]- 8556 31 Nov, 2010 [facility] [place] [facility] [address] [id number] [place] [address]- 2452 19 Nov, 2010 [facility] [place] [facility] [address] [id number] [place] [address]- 3486 18 Nov, 2010 [facility] [place] [facility] [address] [id number] [place] [address]- 8156 13 Oct, 2010 [facility] [place] [facility] [address] [id number], [place] [address] 20 Jul, 2010 [facility] [place] [facility] [address] [id number] [place] [address] 13 Jan, 2010 [facility] [place] [facility] [address] [id number] [place] [address] 30 Dec, 2009 [facility] [place] [facility] [address] [facility] [id number] [place] [address] 09 Dec, 2009 [facility] [place] [facility] [address] [id number] [place] [address] Dec, [facility] [place] [facility] [address] [id number] [place] [address] Dec, [facility] [place] [facility] [address] [id number] [place] [address] Dec, [facility] [place] [facility] [address] [id number] [place] [address] Dec, [facility] [place] [facility] [address] [id number] [place] [address] Nov, [facility] [place] [facility] [address] [id number] [place] [address] Nov, [facility] [place] [facility] [address] [id number] [place] [address] Nov, [facility] [place] [facility] [address] [id number] [place] [address] Apr, [facility] [place] [facility] [address] [id number] [place] [address] Apr, [facility] [place] [facility] [address] [id number] [place] [address] 29 Jan, 2009 [facility] [place] [facility] [address] [id number] [place] [address] 28 Jan, 2009 [facility] [place] [facility] [address] [id number] [place] [address]46 23 Jan, 2009 [facility] [place] [facility] [address] [id number] [place] [address]46 17 Jan, 2009 [facility] [place] [facility] [address] [id number] [place] [address] 14 Jan, 2009 [facility] [place] [facility] [address] [id number] [place] [address]- [address] Jan, [facility] [place] [facility] [address] [id number] [place] [address] Dec, [facility] [id number], [place] [address] Dec, [facility] [id number] [place] [id number]- [address] Dec, [facility] [id number] [place] [id number]- [address] Dec, [facility] [id number] [place] [address] [id number]- [address] Dec, [facility] [id number] [place] [address] [id number]- 1993 Dec, [facility] [id number] [place] [address] [id number] [id number] Nov, [facility] [id number] [place] [address]- [address] Nov, [facility] [id number] [place] [id number]- [address] Aug, [facility] [id number] [place] [address]- [address] Jul, [facility] [address] [id number], [place] [address] June, [facility] [id number] [address] Apr, IMMUNIZATIONS No Known Immunizations SOCIAL HISTORY Never Assessed REASON FOR VISIT Pain management (chronic)--tcuppettRN , -Bilateral hip pain worsening, -Right ear pain, -Increase in anxiety/panic attacks PLAN OF CARE Activity Details Follow Up 3 Months Reason: VITAL SIGNS Height 63 in 2016-10-04 Weight 127.8 lbs 2016-10-04 Temperature 97.5 degrees Fahrenheit 2016-10-04 Heart Rate 90 bpm 2016-10-04 Respiratory Rate 18 2016-10-04 BMI 22.64 kg/m2 2016-10-04 Blood pressure systolic 132 mmHg 2016-10-04 Blood pressure diastolic 80 mmHg 2016-10-04 MEDICATIONS Medication Instructions Dosage Frequency Start Date End Date Duration Status Clonazepam 0.5 MG Orally 2 times a day 1 tablet 12h 28 days Active Artificial Tear Solution Ophthalmic 2 times a day 2 drops as needed 12h Active Restasis 0.05 % Ophthalmic Twice a day 1 drop into affected eye 12h Active BusPIRone HCl 5 mg TAKE ONE TABLET BY MOUTH TWICE DAILY 30 Active Meloxicam 7.5 MG orally 2 times a day 1 tablet 12h 30 Active Furosemide 20 mg Orally Once a day 1 tablet 24h 30 Active Famotidine 20 mg Orally Twice a day 1 tablet 12h 30 Active Duloxetine HCl 60 mg Orally 2 times a day 1 capsule 12h 30 days Active RESULTS No Results PROCEDURES Procedure Date Ordered Result Body Site [facility] VISIT ESTABLISHED PATIENT Oct 04, 2016 INSTRUCTIONS MEDICATIONS ADMINISTERED No Known Medications MEDICAL [...] of loosened hardware/hip replacement ( Jen in [place]) 09/2008 Hospitalization History in pt rehab s/p left hip repair 09/2008-11/2008 Hospitalization History [facility] 07/2009
--- OUTSIDE RECORDS SUMMARY | 2017-10-26 13:49 | XMS REPORT ---
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 [id number] [place] [address] 67611- 8115 June, [facility] [id number] [place] [address] 97927- 1333 June, [facility] [id number] [place] [address] 08735- [address]208 June, [facility] [id number] [place] [address] 60610- 1816 June, [facility] [id number] [place] [address] 23668- 2799 June, Dementia without behavioral disturbance, unspecified dementia type F03.[address] [facility] [id number] [place] [address] 76384- 3300 May, [facility] [id number] [place] [address] 03801- 8988 May, [facility] [id number] [place] [address] 79224 -0693 May, Anxiety F41.9 ; Acute drug withdrawal syndrome without complication F19.230 and Abdominal pain, unspecified abdominal location R10.9 [facility] [id number] [place] [address] 94542- 6597 May, Panic attacks F41.0 [facility] [id number] [place] [address] 59787- 3451 May, Other chronic pain G89.29 and Generalized anxiety disorder F41.1 [facility] [id number] [place] [address] 91635- 5829 Apr, Housing problems Z59.9 [address] Pan[address] attacks F41.0 [facility] [id number] [place] [address] 43634- 8008 Mar, Panic attacks F41.0 [facility] [id number] [place] [address] 33025- 5291 Feb, [facility] [id number] [place] [address] 33225- 0992 Feb, Panic attacks F41.0 [facility] [id number] [place] [address] 19539- 7435 Feb, Pain in right knee M25.561 ; Pain in left knee M25.562 ; Other chronic pain G89.29 ; Housing problems Z59.9 ; Dementia without behavioral disturbance, unspecified dementia type F03.90 ; Generalized anxiety disorder F41.1 and Advance directive declined by patient Z78.9 [facility] [id number] [place] [address] 36439- 7422 Jan, Panic attacks F41.0 [facility] [id number] [place] [address] 56673- 1446 Jan, Panic attacks F41.0 [facility] [id number] [place] [address] 97387- 7377 Dec, Panic attacks F41.0 [facility] [id number] [place] [address] 82783 -0226 Nov, Allergic contact dermatitis due to cosmetics L23.2 [place] [id number] [place] [address] 53097- 5648 Nov, Panic attacks F41.0 [facility] [id number] [place] [address] 45366- 6159 Oct, Panic attacks F41.0 [place] [id number] [place] [address] 64329- 7308 Sep, Panic attacks F41.0 ; Insect bite, initial encounter W57.XXXA and 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 [id number] [place] [address] 30059- 0985 June, [place] [id number] [place] [address] 13990- 9274 June, [facility] [id number] [place] [address] 16052 -7931 June, Dysuria R30.0 and RLQ abdominal pain R10.31 [place] [id number] [place] [address]- 3484 May, Generalized anxiety disorder F41.1 ; Generalized osteoarthritis M15.9 and Dementia without behavioral disturbance, unspecified dementia type F03.90 [facility] [id number] [place] [address]- 6696 [address], [address] [facility] [id number] [place] [address]- 3237 May, [facility] [id number] [address]- 7444 May, [facility] [id number] [place] [address], [place] [address]- 6581 Apr, [facility] [id number] [place] [address]- 3921 Apr, Generalized anxiety disorder F41.1 [facility] [id number] [address]- 2096 Apr, [facility] [id number] [address]- 4684 Apr, [facility] [id number] [address]- 5295 Apr, [facility] [id number] [place] [address]- 9955 Apr, Generalized anxiety disorder F41.1 [facility] [id number] [address]- 3038 Mar, [facility] [id number] [place] [address]- 8930 Mar, [facility] [id number] [address]- 8756 Mar, [facility] [id number] [place] [address]- 8089 Mar, [facility] [id number] [address]- 8427 Mar, Generalized anxiety disorder F41.1 [facility] [id number] [place] [address] 46392- 8077 Feb, Anxiety disorder, unspecified F41.9 [facility] [id number] [place] [address] 59338- 3116 Feb, [facility] [id number] [place] [address] 61535- 5097 Feb, [facility] [id number] [place] [address] 83195- 9107 Feb, [facility] [id number] [place] [address] 00923 -2805 Feb, Urinary frequency R35.0 and Acute cystitis without hematuria N30.00 [facility] [id number] [place] [address] 16311- 0435 Feb, [facility] [id number] [place] [address] 24824- 9760 Jan, [facility] [id number] [place] [address] 99752- 8704 Jan, [facility] [id number] [place] [address] 25821- 8127 Dec, [facility] [id number] [place] [address] 36545- 0995 Dec, [facility] [id number] [place] [address] 53112- 2729 Dec, Edema, unspecified type R60.9 [facility] [id number] [place] [address] 13063- 2153 Dec, [facility] [id number] [place] [address] 19867- 7765 Dec, [facility] [id number] [place] [address] 41647- 3128 30 Oct, 2015 Generalized anxiety disorder F41.1 [facility] [address] [address]- 5656 20 Oct, 2015 [facility] [address] [address]- 4676 16 Oct, 2015 [facility] [address] [address]- 6821 15 Oct, 2015 [facility] [id number] [place] [address] 66022- 7277 06 Oct, 2015 [facility] [id number] [place] [address] 24833- 5220 Aug, Anxiety disorder, unspecified F41.9 [facility] [address] [address]- 8793 Jul, Anxiety disorder, unspecified F41.9 [facility] [address] [address]- 8637 Jul, Generalized anxiety disorder F41.1 [facility] [address] [address]- 8856 Jul, [facility] [id number] [address]- 9742 June, [facility] [id number] [address]- 2717 June, [facility] [address] [address]- 3697 June, [facility] [address] [address]- 7861 June, [facility] [address] [address]- 6528 May, [facility] [id number] [address] -1308 May, Dementia without behavioral disturbance, unspecified dementia type F03.90 and Generalized osteoarthritis M15.9 [facility] [id number] [place] [address] 35513- 4162 May, Generalized osteoarthritis M15.9 and 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 [facility] [id number] [place] [address] 81071- 0049 Apr, [facility] [address] [address]7760- 8150 Apr, [facility] [id number] [place] [address] 18445- 9909 Apr, [facility] [address] 49055- 9085 Mar, [facility] [id number] [place] [address] 43754- 8744 Mar, [facility] [id number] [place] [address] 31267- 7548 Mar, Generalized anxiety disorder F41.1 [facility] [id number] [place] [address] 60473- 4096 Feb, Other infective acute otitis externa of right ear H60.391 [facility] [id number] [place] [address] 53257- 1799 Dec, Dysuria R30.0 ; Generalized osteoarthritis M15.9 and Gastroesophageal reflux disease, esophagitis presence not specified K21.9 [facility] [id number] [place] [address] 06139- 4298 Dec, [facility] [id number] [place] [address] 19835- 0210 Dec, Generalized anxiety disorder F41.1 ; Encounter for immunization Z23 and Dementia F03.90 [facility] [id number] [place] [address] 19410- 1403 Nov, [facility] [id number] [place] [address] 47133- 1149 Oct, 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 [id number] [address]- 8806 Oct, [facility] [id number] [place] [address] 37225- 0754 Aug, Generalized anxiety disorder 300.[address] [facility] [id number] [place] [address] 64827- 9449 Aug, [facility] [id number] [place] [address] 02781- 9635 Aug, Anxiety 300.00 and Chronic pain 338.29 [facility] [id number] [place] [address] 78263- 0077 Jul, [facility] [id number] [place] [address] 83347- 1233 Jul, [facility] [id number] [place] [address] 28582- 9751 June, [facility] [id number] [place] [address] 29540- 5091 June, Anxiety, generalized 300.02 ; Dementia 294.20 and No condition on [place] II V71.09 [facility] [address] [address]- 0438 May, [facility] [id number] [place] [address] 07803- 1407 May, [facility] [address] [address]- 6417 Apr, [facility] [id number] [place] [address] 39529- 5826 Apr, [facility] [place] [facility] [address] [id number] [place] [address]- 5021 Apr, [facility] [place] [facility] [address] [id number] [place] [address]- 5031 Apr, [facility] [place] [facility] [address] [id number] [place] [address]- 3794 Apr, [facility] [place] [facility] [address] [id number] [place] [address]- 1601 Apr, [facility] [place] [facility] [address] [id number] [place] [address]- 1622 Apr, [facility] [place] [facility] [address] [id number] [place] [address]- 6330 Apr, [facility] [place] [facility] [address] [id number] [place] [address]- 9285 Apr, [facility] [place] [facility] [address] [id number] [place] [address]- 2198 Apr, [facility] [place] [facility] [address] [id number] [place] [address]- 9364 Apr, [facility] [place] [facility] [address] [id number] [place] [address]- 3020 Apr, [facility] [place] [facility] [address] [id number] [place] [address]- 6072 Apr, [facility] [place] [facility] [address] [id number] [place] [address]- 0123 Apr, [facility] [place] [facility] [address] [id number] [place] [address]- 9741 Apr, [facility] [place] [facility] [address] [id number] [place] [address]- 4891 Apr, [facility] [place] [facility] [address] [id number] [place] [address]- 6558 Mar, [facility] [place] [facility] [address] [id number] [place] [address]- 1908 Mar, 2014 [facility] [place] [facility] [address] [id number] [place] [address]- 9296 Mar, 2014 [facility] [place] [facility] [address] [id number] [place] [address]- 4536 Mar, 2014 [facility] [place] [facility] [address] [facility] [id number] [place] [address]- 8186 Mar, 2014 [facility] [place] [facility] [address] [id number] [place] [address]- 8373 Mar, 2014 [facility] [place] [facility] [address] [id number] [place] [address]- 0844 Mar, 2014 [facility] [place] [facility] [address] [facility] [id number] [place] [address]- 4070 Mar, 2014 [facility] [place] [facility] [address] [facility] [id number] [place] [address]- 2634 Mar, 2014 [facility] [place] [facility] [address] [facility] [id number] [place] [address]- 3862 Mar, 2014 [facility] [place] [facility] [address] [facility] [id number] [place] [address]- 0504 18 Mar, 2014 [facility] [place] [facility] [address] [facility] [id number] [place] [address]- 2161 18 Mar, 2014 [facility] [place] [facility] [address] [facility] [id number] [place] [address] 2546 17 Mar, 2014 [facility] [place] [facility] [address] [facility] [id number] [place] [address]- 254 17 Mar, 2014 [facility] [place] [facility] [address] [facility] [id number] [place] [address]- 6043 17 Mar, 2014 [facility] [place] [facility] [address] [facility] [id number] [place] [address]- 2546 17 Mar, 2014 [facility] [place] [facility] [address] [facility] [id number] [place] [address]- 2547 Mar, 2014 [facility] [place] [facility] [address] [id number] [place] [address]- 8484 Mar, 2014 [facility] [place] [facility] [address] [id number] [place] [address]- 9906 Mar, 2014 [facility] [place] [facility] [address] [facility] [id number] [place] [address]- 7946 Mar, 2014 [facility] [place] [facility] [address] [id number] [place] [address]- 1331 Mar, 2014 [facility] [place] [facility] [address] [id number] [place] [address]- 4144 Mar, 2014 [facility] [place] [facility] [address] [facility] [id number] [place] [address]- 8117 Mar, 2014 [facility] [place] [facility] [address] [facility] [id number] [place] [address]- 1862 Mar, 2014 [facility] [place] [facility] [address] [facility] [id number] [place] [address]- 3379 Mar, [facility] [place] [facility] [address] [facility] [id number] [place] [address]- 0715 Mar, [facility] [place] [facility] [address] [facility] [id number] [place] [address]- 7432 Feb, [facility] [place] [facility] [address] [facility] [id number] [place] [address]- 6105 Feb, [facility] [place] [facility] [address] [facility] [id number] [place] [address]- 2549 Feb, [facility] [place] [facility] [address] [facility] [id number] [place] [address]- 4493 Feb, [facility] [place] [facility] [address] [facility] [id number] [place] [address]- 3486 Feb, [facility] [place] [facility] [address] [facility] [id number] [place] [address]- 2477 Feb, [facility] [place] [facility] [address] [id number] [place] [address]- 1973 Feb, [facility] [place] [facility] [address] [id number] [place] [address]- 5514 Feb, [facility] [place] [facility] [address] [id number] [place] [address]- 2136 Feb, [facility] [place] [facility] [address] [id number] [place] [address]- 5600 Feb, [facility] [place] [facility] [address] [id number] [place] [address]- 4120 Feb, [facility] [place] [facility] [address] [id number] [place] [address]- 7920 Feb, [facility] [place] [facility] [address] [id number] [place] [address]- 1272 Feb, [facility] [place] [facility] [address] [id number] [place] [address]- 8014 Feb, [facility] [place] [facility] [address] [id number] [place] [address]- 9156 Feb, [facility] [place] [facility] [address] [id number] [place] [address]- 5766 Jan, [facility] [place] [facility] [address] [id number] [place] [address]- 3908 Jan, [facility] [place] [facility] [address] [id number] [place] [address]- 6824 Jan, [facility] [place] [facility] [address] [id number] [place] [address]- 5660 Jan, [facility] [place] [facility] [address] [id number] [place] [address]- 7691 Jan, [facility] [place] [facility] [address] [id number] [place] [address]- 9099 Jan, [facility] [place] [facility] [address] [id number] [place] [address]- 0253 Jan, [facility] [place] [facility] [address] [id number] [place] [address]- 9566 Jan, [facility] [place] [facility] [address] [id number] [place] [address] Jan, [facility] [place] [facility] [address] [id number] [place] [address] Jan, [facility] [place] [facility] [address] [id number] [place] [address] Jan, [facility] [place] [facility] [address] [id number] [place] [address] Jan, [facility] [place] [facility] [address] [id number] [place] [address] Jan, [facility] [place] [facility] [address] [id number] [place] [address] Jan, [facility] [place] [facility] [address] [id number] [place] [address] Jan, [facility] [place] [facility] [address] [id number] [place] [address] Jan, [facility] [place] [facility] [address] [id number] [place] [id number] Jan, [facility] [place] [facility] [address] [id number] [place] [address] Jan, [facility] [place] [facility] [address] [id number] [address] Jan, [facility] [place] [facility] [address] [id number] [place] [address] Jan, [facility] [place] [facility] [address] [id number] [place] [address] Dec, [facility] [place] [facility] [address] [id number] [place] [address] Dec, [facility] [place] [facility] [address] [id number] [place] [address] Dec, [facility] [place] [facility] [address] [id number] [place] [address] Dec, [facility] [place] [facility] [address] [id number] [place] [address] Dec, [facility] [place] [facility] [address] [id number] [place] [address] Dec, [facility] [place] [facility] [address] [id number] [place] [address]- [address] Dec, [facility] [place] [facility] [address] [id number] [place] [address] Nov, [facility] [place] [facility] [address] [id number] [place] [address] Nov, [facility] [place] [facility] [address] [id number] [place] [address] Nov, [facility] [place] [facility] [address] [id number] [place] [address]- [address] Nov, [facility] [place] [facility] [address] [id number] [place] [address]- [address]471 Nov, [facility] [place] [facility] [address] [id number] [place] [address]- [address] Nov, [facility] [place] [facility] [address] [id number] [place] [address]- [address] Nov, [facility] [place] [facility] [address] [id number], [place] [address] Nov, [facility] [place] [facility] [address] [id number] [place] [address]- [address] Nov, [facility] [place] [facility] [address] [id number] [place] [address]- [address] Nov, [facility] [place] [facility] [address] [id number] [place] [address] 29 Oct, 2013 [facility] [place] [facility] [address] [id number] [place] [address] 29 Oct, 2013 [facility] [place] [facility] [address] [id number] [place] [address] 15 Oct, 2013 [facility] [place] [facility] [address] [id number] [place] [address]- [address] 15 Oct, 2013 [facility] [place] [facility] [address] [id number] [place] [address]- [address] 15 Oct, 2013 [facility] [place] [facility] [address] [id number] [place] [address] 15 Oct, 2013 [facility] [place] [facility] [address] [id number] [place] [address] 10 Oct, 2013 [facility] [place] [facility] [address] [id number] [place] [address] 150[address] Oct, [facility] [place] [facility] [address] [id number] [place] [address]65 Oct, [facility] [place] [facility] [address] [id number] [place] [address] Oct, [facility] [place] [facility] [address] [id number] [place] [address] Sep, [facility] [place] [facility] [address] [id number] [place] [address] Sep, [facility] [place] [facility] [address] [id number] [place] [address]- [address] Sep, [facility] [place] [facility] [address] [id number] [place] [address] Sep, [facility] [place] [facility] [address] [id number] [place] [address] Sep, [facility] [place] [facility] [address] [id number] [place] [address] Sep, [facility] [place] [facility] [address] [id number] [place] [address]- [address] Sep, [facility] [place] [facility] [address] [id number] [place] [address] Sep, [facility] [facility] [address] [id number] [place] [address] Sep, [facility] [place] [facility] [address] [id number] [place] [address] Sep, [facility] [place] [facility] [address] [id number] [place] [address]- 67[address] Aug, [facility] [place] [facility] [address] [id number] [place] [address] 68[address] Aug, [facility] [place] [facility] [address] [id number] [place] [address] 6153 Aug, [facility] [place] [address] [id number] [place] [address]- 1767 Aug, [facility] [place] [facility] [address] [id number] [place] [address]- 6052 Aug, [facility] [place] [address] [id number] [place] [address]- 7714 Aug, [facility] [place] [address] [id number] [place] [address]- 7982 Aug, [facility] [place] [facility] [address] [id number] [place] [address]- 5029 Aug, [facility] [place] [address] [id number] [place] [address]- 5757 Aug, [facility] [place] [address] [id number] [place] [address]- 1056 Aug, [facility] [place] [facility] [address] [id number] [place] [address]- 5822 Aug, [facility] [place] [facility] [address] [id number] [place] [address]- 0601 Aug, [facility] [place] [address] [id number] [place] [address]- 5537 23 Jul, 2013 [facility] [place] [facility] [address] [id number] [place] [address]- 5340 23 Jul, 2013 [facility] [place] [address] [id number] [place] [address]- 3894 20 Jul, 2013 [facility] [place] [address] [id number] [place] [address]- 6696 20 Jul, 2013 [facility] [place] [facility] [address] [id number] [place] [address]- 7829 20 Jul, 2013 [facility] [place] [address] [id number] [place] [address]- 1269 Jul, [facility] [place] [address] [id number] [place] [address]- 4599 17 Jul, 2013 [facility] [place] [address] [id number] [place] [address]- 1927 16 Jul, 2013 [facility] [place] [facility] [address] [id number] [place] [address]- 2691 16 Jul, 2013 [facility] [place] [address] [id number] [place] [address]- 5773 14 Jul, 2013 [facility] [address] [id number] [place] [address]- 7338 14 Jul, 2013 [facility] [place] [address] [id number] [place] [address]- 2030 13 Jul, 2013 [facility] [place] [address] [id number] [place] [address]- 4518 13 Jul, 2013 [facility] [place] [address] [id number] [place] [address]- 4792 06 Jul, 2013 [facility] [address] [id number] [place] [address]- 5152 06 Jul, 2013 [facility] [address] [id number] [place] [address]- 6792 Jul, [facility] [address] [id number] [place] [address]- 8634 Jul, [facility] [place] [address] [id number] [place] [address]- 3043 June, [facility] [address] [id number] [place] [address]- 0025 June, [facility] [address] [id number] [place] [address]- 5608 June, [facility] [place] [address] [id number] [place] [address]- 2774 June, [facility] [address] [id number] [place] [address]- 0372 June, [facility] [address] [id number] [place] [address]- 3369 June, [facility] [address] [id number] [place] [address]- 9590 June, [facility] [address] [id number] [place] [address]- 7533 June, [facility] [address] [id number] [place] [address]- 8398 June, [facility] [address] [id number] [place] [address]- 2094 June, [facility] [address] [id number] [place] [address]- 1948 June, [facility] [address] [id number] [place] [address]- 9317 June, [facility] [address] [id number] [place] [address]- 4435 June, [facility] [address] [id number] [place] [address]- 5590 June, [facility] [address] [id number] [place] [address]- 4686 June, [facility] [address] [id number] [place] [address]- 7880 June, [facility] [address] [id number] [place] [address]- 1876 June, [facility] [address] [id number] [place] [address]- 4447 June, [facility] [address] [id number] [place] [address] 1942 June, [facility] [address] [id number] [place] [address]- 6922 June, [facility] [address] [id number] [place] [address]- 8729 June, [facility] [address] [id number] [place] [address]- 1522 June, [facility] [address] [id number] [place] [address]- 2439 June, [facility] [address] [id number] [place] [address]- 4419 June, [facility] [address] [id number] [place] [address]- 1441 June, [facility] [address] [id number] [place] [address]- 4988 June, [facility] [address] [id number] [place] [address]- 8416 June, [facility] [address] [id number] [place] [address]- 6298 June, [facility] [address] [id number] [place] [address]- 2682 June, [facility] [address] [id number] [place] [address]- 4532 June, [facility] [address] [id number] [place] [address]- 4168 June, [facility] [address] [id number] [place] [address]- 5171 June, [facility] [address] [id number] [place] [address]- 9419 May, [facility] [address] [id number] [place] [address]- 2491 May, [facility] [address] [id number] [place] [address]- 1282 May, [facility] [address] [id number] [place] [address]- 5646 May, [facility] [address] [id number] [place] [address]- 9760 May, [facility] [address] [id number] [place] [address]- 0751 May, [facility] [address] [id number] [place] [address]- 2150 May, [facility] [address] [id number] [place] [address]- 9518 May, [facility] [address] [id number] [place] [address]- 6746 May, [facility] [address] [id number] [place] [address]- 0361 May, [facility] [address] [id number] [place] [address]- 9244 May, [facility] [address] [id number] [place] [address]- 5987 May, [facility] [address] [id number] [place] [address]- 7109 May, [facility] [address] [id number] [place] [address]- 0659 May, [facility] [address] [id number] [place] [address]- 1561 May, [facility] [address] [id number] [place] [address]- 3944 Apr, [facility] [address] [facility] [id number] [place] [address]- 3063 Apr, [facility] [address] [id number] [place] [address]- 0808 Apr, [facility] [address] [id number] [place] [address]- 9539 Apr, [facility] [address] [id number] [place] [address]- 2246 Apr, [facility] [address] [facility] [id number] [place] [address]- 6896 Apr, [facility] [address] [facility] [id number] [place] [address]- 4470 Mar, [facility] [address] [facility] [id number] [place] [address]- 4584 Mar, [facility] [address] [facility] [id number] [place] [address]- 2539 Mar, [facility] [address] [facility] [id number] [place] [address]- 9381 Mar, [facility] [address] [id number] [place] [address]- 5102 Mar, [facility] [address] [id number] [place] [address]- 9598 Mar, [facility] [address] [facility] [id number] [place] [address]- 6806 Mar, [facility] [address] [facility] [id number] [place] [address]- 3136 Mar, [facility] [address] [id number] [place] [address]- 0665 Feb, [facility] [address] [id number] [place] [address]- 3490 Feb, [facility] [address] [id number] [place] [address]- 5743 Feb, [facility] [address] [id number] [place] [address]- 1751 Feb, [facility] [address] [id number] [place] [address]- 4090 Feb, [facility] [address] [id number] [place] [address]- 3234 Feb, [facility] [address] [id number] [place] [address]- 2030 Feb, [facility] [address] [id number] [place] [address]- 2052 Feb, [facility] [address] [id number] [place] [address]- 9101 Feb, [facility] [address] [id number] [place] [address]- 2082 Feb, [facility] [address] [id number] [place] [address]- 1711 Jan, [facility] [address] [id number] [place] [address]- 3235 Jan, [facility] [address] [id number] [place] [address]- 9619 Jan, [facility] [address] [id number] [place] [address]- 0196 Jan, [facility] [address] [id number] [place] [address]- 6896 Jan, [facility] [address] [id number] [place] [address]- 5964 Jan, [facility] [address] [id number] [place] [address]- 1275 Jan, [facility] [address] [id number] [place] [address]- 0938 Jan, [facility] [address] [id number] [place] [address]- 5722 Dec, [facility] [address] [id number] [place] [address]- 5232 Dec, [facility] [address] [id number] [place] [address]- 7039 Dec, [facility] [address] [id number] [place] [address]- 7425 Dec, [facility] [address] [id number] [place] [address]- 0354 Dec, [facility] [address] [id number] [address]- 9064 Dec, [facility] [address] [id number] [place] [address]- 3005 Dec, [facility] [address] [id number] [address]- 6503 Dec, [facility] [address] [id number], [place] [address]- 8169 Nov, [facility] [address] [id number] [address]- 6975 Nov, [facility] [address] [id number], [place] [address]- 0483 Nov, [facility] [address] [id number] [address]- 5530 Nov, [facility] [address] [id number], [place] [address]- 8110 Nov, [facility] [address] [id number] [place] [address]- 3013 07 Nov, 2012 [facility] [address] [id number] [place] [address]- 8871 07 Nov, 2012 [facility] [address] [id number] [place] [address]- 4839 Oct, [facility] [address] [id number] [place] [address]- 7980 10 Oct, 2012 [facility] [address] [id number] [place] [address]- 4889 05 Oct, 2012 [facility] [address] [id number] [place] [address]- 8531 Sep, [facility] [address] [id number] [place] [address]- 8236 Sep, [facility] [address] [id number] [place] [address]- 4986 Sep, [facility] [address] [id number] [place] [address]- 0998 Sep, [facility] [address] [id number] [place] [address]- 3126 Aug, [facility] [address] [id number] [place] [address]- 0700 Aug, [facility] [place] [facility] [address] [id number] [place] [address]- 1149 16 Aug, 2012 [facility] [address] [id number] [place] [address]- 8329 15 Aug, 2012 [facility] [address] [id number] [place] [address]- 9888 Aug, [facility] [place] [facility] [address] [id number] [place] [address]- 0380 Jul, [facility] [address] [id number] [place] [address]- 6956 Jul, [facility] [address] [id number] [place] [address]- 4045 18 Jul, 2012 [facility] [address] [id number] [place] [address]- 6607 Jul, [facility] [address] [id number] [place] [address]- 6730 Jul, [facility] [address] [id number] [place] [address]- 7058 June, [facility] [address] [id number] [place] [address]- 3762 June, [facility] [address] [id number] [place] [address]- 1208 June, [facility] [address] [id number] [place] [address]- 9800 June, [facility] [address] [id number] [place] [address]- 6108 June, [facility] [address] [id number] [place] [address]- 4385 29 May, 2012 [facility] [address] [id number] [place] [address]- 5972 May, [facility] [address] [id number] [place] [address]- 6348 May, [facility] [address] [id number] [place] [address]- 2164 17 May, 2012 [facility] [address] [id number] [place] [address]- 3124 16 May, 2012 [facility] [place] [facility] [address] [id number] [place] [address]- 5552 10 May, 2012 [facility] [address] [id number] [place] [address]- 0785 04 May, 2012 [facility] [place] [facility] [address] [id number] [place] [address]- 5439 Apr, [facility] [address] [id number] [place] [address]- 7740 Apr, [facility] [address] [id number] [place] [address]- 7091 Apr, [facility] [address] [facility] [id number] [place] [address]- 2368 Mar, [facility] [address] [id number] [place] [address]- 7806 25 Mar, 2012 [facility] [address] [id number] [place] [address]- 3783 20 Mar, 2012 [facility] [address] [id number] [place] [address]- 5099 19 Mar, 2012 [facility] [address] [facility] [id number] [place] [address]- 1458 Mar, [facility] [address] [id number] [place] [address]- 2317 Mar, [facility] [address] [id number] [place] [address]- 3720 07 Mar, 2012 [facility] [address] [facility] [id number] [place] [address]- 2746 07 Mar, 2012 [facility] [address] [facility] [id number] [place] [address]- 2550 Feb, [facility] [address] [id number] [place] [address]- 8462 29 Feb, 2012 [facility] [address] [id number] [place] [address]- 7677 Feb, [facility] [address] [facility] [id number] [place] [address]- 2863 Feb, [facility] [address] [facility] [id number] [address]- 8996 18 Feb, 2012 [facility] [address] [id number] [place] [address]- 9560 15 Feb, 2012 [facility] [address] [id number] [place] [address]- 8994 14 Feb, 2012 [facility] [place] [facility] [address] [id number] [place] [address]- 0078 27 Jan, 2012 [facility] [place] [facility] [address] [id number] [place] [address]- 3619 27 Jan, 2012 [facility] [address] [id number] [place] [address]- 4808 27 Jan, 2012 [facility] [place] [facility] [address] [id number] [place] [address]- 1175 27 Jan, 2012 [facility] [address] [id number] [place] [address]- 5892 27 Jan, 2012 [facility] [address] [id number] [place] [address]- 4980 Jan, [facility] [address] [id number] [place] [address]- 9037 Jan, [facility] [place] [facility] [address] [id number] [place] [address]- 2816 26 Jan, 2012 [facility] [facility] [address] [id number] [place] [address]- 8121 13 Jan, 2012 [facility] [facility] [address] [id number] [place] [address]- 3490 13 Jan, 2012 [facility] [place] [facility] [address] [id number] [place] [address]- 2906 11 Jan, 2012 [facility] [place] [facility] [address] [id number] [place] [address]- 9897 11 Jan, 2012 [facility] [facility] [address] [id number] [place] [address]- 3988 10 Jan, 2012 [facility] [place] [facility] [address] [id number] [address]- 2259 Jan, [facility] [place] [facility] [address] [id number] [place] [address]- 7302 Dec, [facility] [place] [facility] [address] [id number] [place] [address]- 6326 Dec, [facility] [place] [facility] [address] [facility] [id number] [place] [address] Dec, [facility] [place] [facility] [address] [id number], [place] [address] Dec, [facility] [place] [facility] [address] [id number] [place] [address] Dec, [facility] [place] [facility] [address] [id number] [place] [address] Dec, [facility] [place] [facility] [address] [id number] [place] [address] Dec, [facility] [place] [facility] [address] [id number] [address] Dec, [facility] [place] [facility] [address] [id number], [place] [address] Dec, [facility] [place] [facility] [address] [id number], [place] [address] Dec, [facility] [place] [facility] [address] [id number] [address] Dec, [facility] [place] [facility] [address] [id number], [place] [address] Dec, [facility] [place] [facility] [address] [id number], [place] [address] Dec, [facility] [place] [facility] [address] [id number] [address]687 Dec, [facility] [place] [facility] [address] [facility] [id number], [place] [address] Dec, [facility] [place] [facility] [address] [id number] [place] [address] 4[address] Dec, [facility] [place] [facility] [address] [id number] [place] [address]- [address]160 Dec, [facility] [place] [facility] [address] [id number] [place] [address]- [address] Dec, [facility] [place] [facility] [address] [id number] [place] [address]- [address]13 Dec, [facility] [place] [facility] [address] [id number] [place] [address]- 6947 Dec, [facility] [place] [facility] [address] [id number] [place] [address], [place] [address] Nov, [facility] [place] [facility] [address] [id number] [place] [address]- [address]479 Nov, [facility] [place] [facility] [address] [facility] [id number] [place] [address]- 8970 Nov, [facility] [place] [facility] [address] [id number] [place] [address]- [address]77 Nov, [facility] [place] [facility] [address] [facility] [id number] [place] [address]- [address]157 Nov, [facility] [place] [facility] [address] [facility] [id number] [place] [address]- [address] 24 Nov, 2011 [facility] [place] [facility] [address] [facility] [id number] [place] [address]- 8209 15 Nov, 2011 [facility] [place] [facility] [address] [id number] [place] [address]- 6236 15 Nov, 2011 [facility] [place] [facility] [address] [facility] [id number] [place] [address] Nov, [facility] [place] [facility] [address] [facility] [id number] [place] [address]- 9701 10 Nov, 2011 [facility] [place] [facility] [address] [facility] [id number] [place] [address]- 8[address] Nov, [facility] [place] [facility] [address] [id number] [place] [address]- 3988 Nov, [facility] [place] [facility] [address] [id number] [place] [address]- 6256 Nov, [facility] [place] [facility] [address] [id number] [place] [address]- 1547 30 Oct, 2011 [facility] [place] [facility] [address] [id number] [place] [address]- 2986 27 Oct, 2011 [facility] [place] [facility] [address] [id number] [place] [address]- [address] 24 Oct, 2011 [facility] [place] [facility] [address] [id number] [place] [address]- 5146 Oct, [facility] [place] [facility] [address] [id number] [place] [address]- 9697 Oct, [facility] [place] [facility] [address] [id number] [place] [address]- 6595 Oct, [facility] [place] [facility] [address] [id number] [place] [address]- 3543 Sep, [facility] [place] [facility] [address] [id number] [place] [address]- [address]304 Sep, [facility] [place] [facility] [address] [id number] [place] [address]- 7624 Sep, [facility] [place] [facility] [address] [id number], [place] [address] Sep, [facility] [place] [facility] [address] [id number] [place] [address]- [address] Aug, [facility] [place] [facility] [address] [id number] [place] [address]- [address]852 Aug, [facility] [place] [facility] [address] [id number] [place] [address]- [address] Aug, [facility] [place] [facility] [address] [id number] [place] [address]- [address]35 Jul, [facility] [address] [id number] [place] [address]- 67[address] Jul, [facility] [place] [facility] [address] [id number] [place] [address]- 2048 Jul, [facility] [place] [facility] [address] [id number] [place] [address]- [address] Jul, [facility] [place] [facility] [address] [id number] [place] [address]- [address]196 June, [facility] [address] [id number] [place] [address]- [address] June, [facility] [place] [facility] [address] [id number] [place] [address]- 4993 June, [facility] [address] [id number] [place] [address]- 7359 June, [facility] [place] [facility] [address] [id number] [place] [address] June, [facility] [address] [id number] [place] [address]- 1613 June, [facility] [place] [facility] [address] [id number] [place] [address]- 6509 May, [facility] [place] [facility] [address] [id number] [place] [address]- [address]013 29 May, 2011 [facility] [place] [facility] [address] [id number] [place] [address]- 0115 May, [facility] [place] [facility] [address] [id number] [place] [address]- [address]753 24 May, 2011 [facility] [place] [facility] [address] [id number] [place] [address]- 1774 20 May, 2011 [facility] [place] [facility] [address] [id number] [place] [address]- [address]246 18 May, 2011 [facility] [place] [facility] [address] [id number] [place] [address]- 3304 May, [facility] [place] [facility] [address] [id number] [place] [address]- 4371 May, [facility] [place] [facility] [address] [id number] [place] [address]- [address] May, [facility] [place] [facility] [address] [id number] [place] [address] Apr, [facility] [place] [facility] [address] [id number] [place] [address] Mar, [facility] [place] [facility] [address] [id number] [place] [address] Mar, [facility] [place] [facility] [address] [id number] [place] [address] Mar, [facility] [place] [facility] [address] [id number] [place] [address] Mar, [facility] [place] [facility] [address] [id number] [place] [address] Feb, [facility] [place] [facility] [address] [id number] [place] [address] Feb, [facility] [place] [facility] [address] [id number] [place] [address] Feb, [facility] [place] [facility] [address] [id number] [place] [address] Jan, [facility] [place] [facility] [address] [id number] [place] [address] Jan, [facility] [place] [facility] [address] [id number] [place] [address] 14 Jan, 2011 [facility] [place] [facility] [address] [id number] [place] [address] 29 Dec, 2010 [facility] [place] [facility] [address] [id number] [address] 28 Dec, 2010 [facility] [place] [facility] [address] [id number] [place] [address] 16 Dec, 2010 [facility] [place] [facility] [address] [id number] [place] [address]- [address] 15 Dec, 2010 [facility] [place] [facility] [address] [id number] [place] [address]- [address] 31 Nov, 2010 [facility] [place] [facility] [address] [id number] [place] [address] 31 Nov, 2010 [facility] [place] [facility] [address] [id number] [place] [address]- [address] 19 Nov, 2010 [facility] [place] [facility] [address] [id number] [place] [address] 18 Nov, 2010 [facility] [place] [facility] [address] [id number] [place] [address]- [address] 13 Oct, 2010 [facility] [place] [facility] [address] [id number], [place] [address] Jul, [facility] [place] [facility] [address] [id number], [place] [address] Jan, [facility] [place] [facility] [address] [id number] [place] [address] Dec, [facility] [place] [facility] [address] [id number], [place] [address] Dec, [facility] [place] [facility] [address] [id number], [place] [address] Dec, [facility] [place] [facility] [address] [id number] [place] [address]- [address] Dec, [facility] [place] [facility] [address] [facility] [id number], [place] [address] Dec, [facility] [place] [facility] [address] [facility] [id number], [place] [address] Dec, [facility] [place] [facility] [address] [id number] [place] [address] 22 Nov, 2009 [facility] [address] [id number] [place] [address]- [address] 22 Nov, 2009 [facility] [address] [id number] [place] [address] 2546 11 Nov, 2009 [facility] [address] [id number] [place] [address]46 20 Apr, 2009 [facility] [address] [id number] [place] [address] 2546 17 Apr, 2009 [facility] [address] [id number] [place] [address] 29 Jan, 2009 [facility] [address] [facility] [id number] [place] [address]- [address] 28 Jan, 2009 [facility] [address] [facility] [id number] [place] [address]- [address] 23 Jan, 2009 [facility] [address] [id number] [place] [address] 17 Jan, 2009 [facility] [address] [facility] [id number] [place] [address]- [address]34 14 Jan, 2009 [facility] [address] [facility] [id number] [place] [address]- [address] Jan, [facility] [address] [id number] [place] [address] 2546 30 Dec, 2008 [facility] [address] [id number] [place] [address] 2541 23 Dec, 2008 [facility] [address] [id number] [place] [address] 2546 18 Dec, 2008 [facility] [address] [facility] [id number] [place] [address]- [address]46 11 Dec, 2008 [facility] [address] [facility] [id number] [place] [address] Dec, [facility] [address] [id number] [address] Dec, [facility] [id number] [address] Nov, [facility] [id number] [address] Nov, [facility] [id number] [address] Aug, [facility] [id number] [address] Jul, [facility] [id number], [place] [address] June, [facility] [id number], [place] [address] Apr, IMMUNIZATIONS No Known Immunizations SOCIAL HISTORY [...] hip repair of loosened hardware/hip replacement ( [facility] in [place]) 09/2008 Hospitalization History in pt rehab s/p left hip repair 09/2008-11/2008 Hospitalization History [facility] 07/2009
--- OUTSIDE RECORDS SUMMARY | 2017-10-26 13:50 | XMS REPORT ---
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 Active 750107563 Problem Generalized osteoarthritis M15.9 Active 101060994 Problem Meningioma D32.9 Active 659797741 Problem Other chronic pain G89.29 Active 65118500 Problem Panic attacks F41.0 Active 973472579 Problem Generalized anxiety disorder F41.1 Active 720165643 Problem Dementia without behavioral disturbance, unspecified dementia type F03.90 Active 23776819 Problem Seasonal allergic rhinitis due to other allergic trigger J30.89 Active 149536741 Problem Anxiety disorder, unspecified F41.9 Active 969344086 ALLERGIES No Information ENCOUNTERS Encounter Location Date Diagnosis [place] [address] [address]- [address]708 May, Other chronic pain G89.29 and Generalized anxiety disorder F41.1 [place] [address] [place] [id number] [place] [address] 97494- 1605 Apr, Housing problems Z59.9 and Panic attacks F41.0 [facility] [address] [place] [id number] [place] [address] 78104- 0950 Mar, Panic attacks F41.0 [place] [address] 70422- 0973 Feb, [place] [address] [place] [id number] [place] [address] 52434- 0159 Feb, Panic attacks F41.0 [place] [address] 98721- 6472 Feb, Pain in right knee M25.561 ; Pain in left knee M25.562 ; Other chronic pain G89.29 ; Housing problems Z59.9 ; Dementia without behavioral disturbance, unspecified dementia type F03.90 ; Generalized anxiety disorder F41.1 and Advance directive declined by patient Z78.9 [facility] [address] [place] [address] [id number] [place] [address] 77449- 1199 Jan, Panic attacks F41.0 [place] [address] [place] [id number] [place] [address] 50315- 8950 Jan, Panic attacks F41.0 [place] [address] 95857- 8376 Dec, Panic attacks F41.0 [facility] [address] [place] [address] [id number] [place] [address] 71698 -2872 Nov, Allergic contact dermatitis due to cosmetics L23.2 [place] [address] [place] [id number] [place] [address] 12385- 4701 Nov, Panic attacks F41.0 [place] [address] [place] [id number] [place] [address] 07526- 4008 Oct, Panic attacks F41.0 [place] [address] [place] [id number] [place] [address] 87657- 2479 Sep, Panic attacks F41.0 ; Insect bite, initial encounter W57.XXXA and 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 [place] [address] [place] [id number] [place] [address] 11775- 1363 Sep, [place] [address] [place] [id number] [place] [address] 17161- 7590 Aug, Generalized anxiety disorder F41.1 [place] [address] [place] [id number] [place] [address] 74447- 9577 Jul, [facility] [address] [place] [id number] [place] [address] 46535 -1979 June, Seasonal allergic rhinitis due to other allergic trigger J30.89 [facility] [address] [place] [address] [id number] [place] [address] 76620- 1045 June, [facility] [address] [place] [id number] [place] [address] 28875- 0419 June, [facility] [address] [place] [address] [id number] [place] [address] 85602 -0020 June, Dysuria R30.0 and RLQ abdominal pain R10.31 [facility] [address] [place] [id number] [place] [address] 65439- 2490 May, Generalized anxiety disorder F41.1 ; Generalized osteoarthritis M15.9 and Dementia without behavioral disturbance, unspecified dementia type F03.90 [facility] [address] [place] [id number] [place] [address] 61693- 4132 May, [facility] [address] [place] [id number] [place] [address] 69285- 5144 May, [facility] [address] [place] [id number] [place] [address] 71961- 6176 May, [facility] [address] [place] [id number] [place] [address] 21224- 0311 Apr, [facility] [address] [place] [id number] [place] [address] 97678- 1514 Apr, Generalized anxiety disorder F41.1 [facility] [address] [place] [id number] [place] [address] 29233- 4719 Apr, [facility] [address] [place] [id number] [place] [address] 18042- 4856 Apr, [facility] [address] [place] [id number] [place] [address] 62148- 4118 Apr, [facility] [address] [place] [id number] [place] [address] 59455- 9945 Apr, Generalized anxiety disorder F41.1 [facility] [id number] [place] [address]- 4143 Mar, [facility] [id number] [place] [address], [place] [address]- 1671 Mar, [facility] [address] [place] [id number] [place] [address]- 9032 Mar, [facility] [id number] [place] [address] 68767- 8195 Mar, [facility] [id number] [place] [address] 69990- 2450 Mar, Generalized anxiety disorder F41.1 [facility] [address] [place] [id number] [place] [address] 28351- 7496 Feb, Anxiety disorder, unspecified F41.9 [facility] [id number] [place] [address] 36476- 9826 Feb, [facility] [address] [address]- 4188 Feb, [facility] [id number] [place] [address] 26067- 8382 Feb, [facility] [address] [address]3809 Feb, Urinary frequency R35.0 and Acute cystitis without hematuria N30.00 [facility] [id number] [address]- 7438 Feb, [facility] [id number] [address]- 3044 Jan, [facility] [address] [place] [id number] [place] [address] 09392- 1673 Jan, [facility] [address] [address]- 9487 Dec, [facility] [id number] [place] [address] 21935- 2880 14 Dec, 2015 [facility] [address] [address]- 8213 Dec, Edema, unspecified type R60.9 [facility] [address] [place] [id number] [address]- 4022 Dec, [facility] [id number] [place] [address] 94991- 0925 Dec, [facility] [address] [place] [id number] [place] [address] 61539- 3619 30 Oct, 2015 Generalized anxiety disorder F41.1 [facility] [id number] [place] [address], [place] [address]- 3006 20 Oct, 2015 [facility] [id number] [place] [address] 15711- 8547 16 Oct, 2015 [facility] [address] [place] [id number] [place] [address] 63936- 2576 15 Oct, 2015 [facility] [address] [address]- 4098 Oct, [facility] [id number] [address]- 2003 Aug, Anxiety disorder, unspecified F41.9 [facility] [address] [address]- 9177 Jul, Anxiety disorder, unspecified F41.9 [facility] [address] [address]- 3268 Jul, Generalized anxiety disorder F41.1 [facility] [address] [address]- 8031 Jul, [facility] [address] [place] [id number] [address]- 7375 June, [facility] [id number] [address]- 9633 June, [facility] [id number] [place] [address] 68488- 0955 June, [facility] [address] [place] [id number] [place] [address] 67183- 6617 June, [facility] [address] [place] [id number] [place] [address] 98204- 4624 May, [facility] [address] [place] [id number] [place] [address] 72397 -1392 May, Dementia without behavioral disturbance, unspecified dementia type F03.90 and Generalized osteoarthritis M15.9 [facility] [address] [place] [id number] [place] [address] 50075- 9949 May, Generalized osteoarthritis M15.9 and 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 [facility] [address] [place] [id number] [place] [address] 76613- 1833 Apr, [facility] [address] [place] [id number] [place] [address] 18103- 7827 Apr, [facility] [address] [place] [id number] [place] [address] 24668- 7560 Apr, [facility] [address] [place] [id number] [place] [address] 54006- 9801 Mar, [facility] [id number] [place] [address] 24011- 5319 Mar, [facility] [address] [place] [id number] [place] [address] 36694- 7833 Mar, Generalized anxiety disorder F41.1 [facility] [address] [place] [id number] [place] [address] 63260- 2684 Feb, Other infective acute otitis externa of right ear H60.391 [facility] [address] [place] [id number] [place] [address] 86507- 4258 Dec, Dysuria R30.0 ; Generalized osteoarthritis M15.9 and Gastroesophageal reflux disease, esophagitis presence not specified K21.9 [facility] [address] [place] [id number] [place] [address] 09171- 4894 Dec, [facility] [address] [place] [id number] [place] [address] 72453- 5453 Dec, Generalized anxiety disorder F41.1 ; Encounter for immunization Z23 and Dementia F03.90 [facility] [address] 41999- 0968 Nov, [facility] [address] [place] [id number] [place] [address] 74196- 0573 Oct, [facility] [address] [place] [id number] [place] [address] 64795- 8943 Oct, 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 ; Chronic pain 338.29 ; Anxiety 300.00 and Dementia 294.20 [place] [address] [place] [id number] [place] [address] 52347- 1638 Oct, [facility] [address] [place] [id number] [place] [address] 32215- 8109 Aug, Generalized anxiety disorder 300.02 and Dementia 294.20 [facility] [address] [place] [id number] [place] [address] 82657- 8074 Aug, [facility] [address] [place] [id number] [place] [address] 28249- 2955 Aug, Anxiety 300.00 and Chronic pain 338.29 [facility] [address] [place] [id number] [place] [address] 55894- 3455 Jul, [facility] [address] [place] [id number] [place] [address] 78821- 1712 Jul, [facility] [address] [place] [id number] [place] [address] 24674- 1081 June, [facility] [address] [place] [id number] [place] [address] 02812- 0641 June, Anxiety, generalized 300.02 ; Dementia 294.20 and No condition on [place] II V71.09 [facility] [place] [facility] [address] [id number] [place] [address]- 7621 14 May, 2014 [facility] [place] [facility] [address] [id number] [place] [address]- 1436 May, [facility] [place] [facility] [address] [id number] [place] [address]- 6291 Apr, [facility] [place] [facility] [address] [id number] [place] [address]- 0477 Apr, [facility] [place] [facility] [address] [id number] [place] [address]- 7109 Apr, [facility] [place] [facility] [address] [id number] [place] [address]- 6954 Apr, [facility] [place] [facility] [address] [facility] [id number] [place] [address]- 2660 Apr, [facility] [place] [facility] [address] [facility] [id number] [address]- 2233 Apr, [facility] [place] [facility] [address] [facility] [id number] [place] [address]- 5485 Apr, [facility] [place] [facility] [address] [facility] [id number] [address]- 4996 Apr, [facility] [place] [facility] [address] [facility] [id number] [address]- 1357 Apr, [facility] [place] [facility] [address] [facility] [id number] [address]- 8710 Apr, [facility] [place] [facility] [address] [id number] [address]- 7111 Apr, [facility] [place] [facility] [address] [facility] [id number], [place] [address]- 2419 Apr, [facility] [place] [facility] [address] [facility] [id number] 4170 Apr, [facility] [place] [facility] [address] [id number] [address]- 3861 Apr, [facility] [place] [facility] [address] [id number] [place] [address]- 3829 Apr, [facility] [place] [facility] [address] [id number] [place] [address]- 9780 Apr, [facility] [place] [facility] [address] [facility] [id number] [place] [address]- 7227 Mar, 2014 [facility] [place] [facility] [address] [id number] [place] [address]- 9936 Mar, 2014 [facility] [place] [facility] [address] [id number] [place] [address]- 4572 Mar, 2014 [facility] [place] [facility] [address] [facility] [id number] [place] [address]- 5872 Mar, 2014 [facility] [place] [facility] [address] [facility] [id number] [place] [address]- 6450 Mar, 2014 [facility] [place] [facility] [address] [facility] [id number] [place] [address]- 9614 Mar, 2014 [facility] [place] [facility] [address] [facility] [id number] [place] [address]- 4812 Mar, 2014 [facility] [place] [facility] [address] [facility] [id number] [place] [address]- 6335 Mar, 2014 [facility] [place] [facility] [address] [facility] [id number] [place] [address]- 2540 Mar, 2014 [facility] [place] [facility] [address] [facility] [id number] [place] [address]- 2540 Mar, 2014 [facility] [place] [facility] [address] [facility] [id number] [place] [address]- 5476 Mar, 2014 [facility] [place] [facility] [address] [facility] [id number] [place] [address]- 2547 Mar, 2014 [facility] [place] [facility] [address] [facility] [id number] [place] [address]- 7865 Mar, 2014 [facility] [place] [facility] [address] [id number] [place] [address]- 7596 17 Mar, 2014 [facility] [place] [facility] [address] [id number] [place] [address]- 8566 17 Mar, 2014 [facility] [place] [facility] [address] [facility] [id number] [place] [address]- 1616 Mar, 2014 [facility] [place] [facility] [address] [id number] [place] [address]- 4266 Mar, 2014 [facility] [place] [facility] [address] [id number] [place] [address]- 1841 Mar, 2014 [facility] [place] [facility] [address] [facility] [id number] [place] [address]- 7270 Mar, 2014 [facility] [place] [facility] [address] [facility] [id number] [place] [address]- 2240 Mar, 2014 [facility] [place] [facility] [address] [facility] [id number] [place] [address]- 1082 Mar, 2014 [facility] [place] [facility] [address] [facility] [id number] [place] [address]- 9144 Mar, 2014 [facility] [place] [facility] [address] [facility] [id number] [place] [address]- 6408 Mar, 2014 [facility] [place] [facility] [address] [facility] [id number] [place] [address]- 2776 Mar, 2014 [facility] [place] [facility] [address] [facility] [id number] [place] [address]- 7235 Mar, 2014 [facility] [place] [facility] [address] [facility] [id number] [place] [address]- 8013 Mar, 2014 [facility] [place] [facility] [address] [facility] [id number] [place] [address]- 3931 Feb, [facility] [place] [facility] [address] [facility] [id number] [place] [address]- 0961 Feb, [facility] [place] [facility] [address] [id number] [place] [address]- 3917 Feb, [facility] [place] [facility] [address] [id number] [place] [address]- 4154 Feb, [facility] [place] [facility] [address] [id number] [place] [address]- 1657 Feb, [facility] [place] [facility] [address] [id number] [place] [address]- 3355 Feb, [facility] [place] [facility] [address] [id number] [place] [address]- 7801 Feb, [facility] [place] [facility] [address] [id number] [place] [address]- 4231 Feb, [facility] [place] [facility] [address] [id number] [place] [address]- 8703 Feb, [facility] [place] [facility] [address] [id number] [place] [address]- 7398 Feb, [facility] [place] [facility] [address] [id number] [place] [address]- 7719 Feb, [facility] [place] [facility] [address] [id number] [place] [address]- 1256 Feb, [facility] [place] [facility] [address] [id number] [place] [address]- 6707 Feb, [facility] [place] [facility] [address] [id number], [place] [address]- 9980 Feb, [facility] [place] [facility] [address] [id number] [place] [address]- 3981 Feb, [facility] [place] [facility] [address] [id number] [place] [address]- 4618 Jan, [facility] [place] [facility] [address] [id number] [place] [address]- 2348 Jan, [facility] [place] [facility] [address] [id number] [place] [address]- 7263 Jan, [facility] [place] [facility] [address] [id number] [place] [address]- 7926 Jan, [facility] [place] [facility] [address] [id number] [place] 6856 Jan, [facility] [place] [facility] [address] [id number] [place] [address]- 6546 Jan, [facility] [place] [facility] [address] [id number] [place] [address]- 2792 Jan, [facility] [place] [facility] [address] [id number] [place] [address]- 9857 Jan, [facility] [place] [facility] [address] [id number] [place] [address]- 2744 Jan, [facility] [place] [facility] [address] [id number] [place] [address]- 4693 Jan, [facility] [place] [facility] [address] [id number] [place] [address]- 3892 Jan, [facility] [place] [facility] [address] [id number] [place] [address]- 1039 Jan, [facility] [place] [facility] [address] [id number] [place] [address]- 0624 Jan, [facility] [place] [facility] [address] [id number] [address] Jan, [facility] [place] [facility] [address] [id number][place] [address] 15 Jan, 2014 [facility] [place] [facility] [address] [id number] [place] [address] Jan, [facility] [place] [facility] [address] [id number] [place] [id number] Jan, [facility] [place] [facility] [address] [id number] [place] [address] Jan, [facility] [place] [facility] [address] [id number] [place] [address] Jan, [facility] [place] [facility] [address] [id number] [place] [address] Jan, [facility] [place] [facility] [address] [id number] [place] [address] Dec, [facility] [place] [facility] [address] [id number] [place] [address] Dec, [facility] [place] [facility] [address] [id number] [place] [address] Dec, [facility] [place] [facility] [address] [id number] [place] [address] Dec, [facility] [place] [facility] [address] [id number] [place] [address] Dec, [facility] [place] [facility] [address] [id number] [place] [address] Dec, [facility] [place] [facility] [address] [id number] [place] [address]- [address] Dec, [facility] [place] [facility] [address] [id number] [place] [address] Nov, [facility] [place] [facility] [address] [id number] [place] [address] Nov, [facility] [place] [facility] [address] [id number] [place] [address] Nov, [facility] [place] [facility] [address] [id number] [place] [address] Nov, [facility] [place] [facility] [address] [id number] [place] [address] 15 Nov, 2013 [facility] [place] [facility] [address] [id number] [place] [address]- [address] 15 Nov, 2013 [facility] [place] [facility] [address] [id number] [place] [address]- [address] Nov, [facility] [place] [facility] [address] [id number] [place] [address] Nov, [facility] [place] [facility] [address] [id number] [place] [address]- [address] Nov, [facility] [place] [facility] [address] [id number] [place] [address]- [address] Nov, [facility] [place] [facility] [address] [id number] [place] [address] 29 Oct, 2013 [facility] [place] [facility] [address] [id number] [place] [address] 29 Oct, 2013 [facility] [place] [facility] [address] [id number] [place] [address]- [address] 15 Oct, 2013 [facility] [place] [facility] [address] [id number] [place] [address]- [address]678 15 Oct, 2013 [facility] [place] [facility] [address] [id number] [place] [address] 15 Oct, 2013 [facility] [place] [facility] [address] [id number] [place] [address] 15 Oct, 2013 [facility] [place] [facility] [address] [id number] [address] 10 Oct, 2013 [facility] [place] [facility] [address] [id number] [address] 10 Oct, 2013 [facility] [place] [facility] [address] [id number], [place] [address] 02 Oct, 2013 [facility] [place] [facility] [address] [id number] [place] [address] Oct, [facility] [place] [facility] [address] [id number] [place] [address] Sep, [facility] [place] [facility] [address] [id number], [place] [address] Sep, [facility] [place] [facility] [address] [id number], [place] [address] Sep, [facility] [place] [facility] [address] [id number] [place] [address]- [address] Sep, [facility] [place] [facility] [address] [id number] [place] [address]- [address] Sep, [facility] [place] [facility] [address] [id number] [place] [address]- [address] Sep, [facility] [place] [facility] [address] [id number] [place] [address]- [address] Sep, [facility] [place] [facility] [address] [id number] [place] [address] Sep, [facility] [place] [facility] [address] [id number] [place] [address] Sep, [facility] [place] [facility] [address] [id number] [place] [address]- [address] Sep, [facility] [place] [facility] [address] [id number] [place] [address]- [address] Aug, [facility] [place] [facility] [address] [id number] [place] [address]- [address] Aug, [facility] [place] [facility] [address] [id number] [place] [address] Aug, [facility] [place] [facility] [address] [id number] [place] [address] Aug, [facility] [place] [facility] [address] [id number] [place] [address] Aug, [facility] [place] [facility] [address] [id number] [place] [address] Aug, [facility] [place] [facility] [address] [id number] [place] [address] 7394 Aug, [facility] [place] [facility] [address] [id number] [place] [address] 0785 Aug, [facility] [place] [facility] [address] [id number] [place] [address] 15 Aug, 2013 [facility] [place] [facility] [address] [id number] [place] [address] 3926 15 Aug, 2013 [facility] [place] [facility] [address] [id number] [place] [address] 07 Aug, 2013 [facility] [place] [facility] [address] [id number] [place] [address] 08[address] 07 Aug, 2013 [facility] [place] [facility] [address] [id number] [place] [address] 0612 Jul, [facility] [place] [facility] [address] [id number] [place] [address]- 0888 23 Jul, 2013 [facility] [place] [facility] [address] [id number] [place] [address] 9140 20 Jul, 2013 [facility] [place] [facility] [address] [id number] [place] [address] 2928 Jul, [facility] [place] [facility] [address] [id number] [place] [address]- 8102 20 Jul, 2013 [facility] [place] [facility] [address] [id number] [place] [address]- 5825 20 Jul, 2013 [facility] [place] [facility] [address] [id number] [place] [address] 3167 17 Jul, 2013 [facility] [place] [facility] [address] [id number] [place] [address]- 4750 16 Jul, 2013 [facility] [place] [facility] [address] [id number] [place] [address]- 1585 16 Jul, 2013 [facility] [place] [facility] [address] [id number] [place] [address]- 6858 14 Jul, 2013 [facility] [place] [facility] [address] [id number] [place] [address]- 9988 14 Jul, 2013 [facility] [place] [facility] [address] [id number] [place] [address]- 6915 Jul, [facility] [place] [facility] [address] [id number] [place] [address]- 5288 Jul, [facility] [place] [facility] [address] [id number] [place] [address]- 2519 Jul, [facility] [place] [facility] [address] [id number] [place] [address]- 2505 Jul, [facility] [place] [facility] [address] [id number] [place] [address]- 4945 Jul, [facility] [place] [facility] [address] [id number] [place] [address]- 6039 Jul, [facility] [place] [facility] [address] [id number] [place] [address]- 6704 June, [facility] [place] [facility] [address] [id number] [place] [address]- 4238 June, [facility] [place] [facility] [address] [id number] [place] [address]- 2563 June, [facility] [place] [facility] [address] [id number] [place] [address]- 7259 June, [facility] [place] [facility] [address] [id number] [place] [address]- 5121 June, [facility] [place] [facility] [address] [id number] [place] [address]- 7650 June, [facility] [place] [facility] [address] [id number] [place] [address]- 0203 June, [facility] [place] [facility] [address] [id number] [place] [address]- 4022 June, [facility] [place] [facility] [address] [id number] [place] [address]- 1412 June, [facility] [place] [facility] [address] [id number] [place] [address]- 6829 June, [facility] [place] [facility] [address] [id number] [place] [address]- 4989 June, [facility] [address] [id number] [place] [address]- 0450 June, [facility] [address] [id number] [place] [address]- 9794 June, [facility] [address] [id number] [place] [address]- 6897 June, [facility] [place] [facility] [address] [id number] [place] [address]- 0366 June, [facility] [address] [id number] [place] [address]- 2323 June, [facility] [address] [id number] [place] [address]- 6968 June, [facility] [address] [id number] [place] [address]- 8524 June, [facility] [address] [id number] [place] [address]- 4220 June, [facility] [address] [id number] [place] [address]- 7488 June, [facility] [address] [id number] [place] [address]- 3171 June, [facility] [place] [facility] [address] [id number] [place] [address]- 0167 June, [facility] [place] [facility] [address] [id number] [place] [address]- 3344 June, [facility] [place] [facility] [address] [id number] [place] [address]- 1540 June, [facility] [place] [facility] [address] [id number] [place] [address]- 5069 June, [facility] [place] [facility] [address] [id number] [place] [address]- 9719 June, [facility] [place] [facility] [address] [id number] [place] [address]- 2858 June, [facility] [place] [facility] [address] [id number] [place] [address]- 4091 June, [facility] [place] [facility] [address] [id number] [place] [address]- 0839 June, [facility] [place] [facility] [address] [id number] [place] [address]- 5194 June, [facility] [place] [facility] [address] [id number] [place] [address]- 6199 June, [facility] [place] [facility] [address] [id number] [place] [address]- 1091 June, [facility] [place] [facility] [address] [id number] [place] [address]- 5404 May, [facility] [place] [facility] [address] [id number] [place] [address]- 9498 May, [facility] [place] [facility] [address] [id number] [place] [address]- 9200 May, [facility] [place] [facility] [address] [id number] [place] [address]- 7012 May, [facility] [place] [facility] [address] [id number] [place] [address]- 3819 May, [facility] [place] [facility] [address] [id number] [place] [address]- 8637 May, [facility] [place] [facility] [address] [id number] [place] [address]- 6242 May, [facility] [place] [facility] [address] [id number] [place] [address]- 0771 May, [facility] [place] [facility] [address] [id number] [place] [address]- 4769 May, [facility] [place] [facility] [address] [id number] [place] [address]- 2803 May, [facility] [place] [facility] [address] [id number] [place] [address]- 9643 May, [facility] [place] [facility] [address] [id number] [place] May, [facility] [place] [facility] [address] [id number] [place] [address]- 4546 May, [facility] [place] [facility] [address] [id number] [place] [address]- 2416 May, [facility] [place] [facility] [address] [id number] [place] [address]- 0426 May, [facility] [place] [facility] [address] [id number] [place] [address]- 2171 Apr, [facility] [place] [facility] [address] [id number] [place] [address]- 5721 Apr, [facility] [place] [facility] [address] [id number] [place] [address]- 3462 Apr, [facility] [place] [facility] [address] [id number] [place] [address]- 2204 Apr, [facility] [place] [facility] [address] [id number] [place] [address]- 5421 Apr, [facility] [place] [facility] [address] [id number] [place] [address]- 5693 Apr, [facility] [place] [facility] [address] [id number] [place] [address]- 0156 Mar, [facility] [place] [facility] [address] [id number] [place] [address]- 2673 Mar, [facility] [place] [facility] [address] [id number] [place] [address]- 8250 Mar, [facility] [place] [facility] [address] [id number] [place] [address]- 1178 Mar, [facility] [place] [facility] [address] [id number] [place] [address]- 0443 Mar, [facility] [place] [facility] [address] [id number] [place] [address]- 4378 Mar, [facility] [place] [facility] [address] [id number] [place] [address]- 3216 Mar, [facility] [place] [facility] [address] [id number] [place] [address]- 1696 Mar, [facility] [place] [facility] [address] [id number] [place] [address]- 2532 Feb, [facility] [place] [facility] [address] [id number] [place] [address]- 2090 Feb, [facility] [place] [facility] [address] [id number] [place] [address]- 9962 Feb, [facility] [place] [facility] [address] [id number] [place] [address]- 6655 Feb, [facility] [place] [facility] [address] [id number] [place] [address]- 6842 Feb, [facility] [place] [facility] [address] [id number] [place] [address]- 6360 Feb, [facility] [place] [facility] [address] [id number] [place] [address]- 4219 Feb, [facility] [place] [facility] [address] [id number] [place] [address]- 9068 Feb, [facility] [place] [facility] [address] [id number] [place] [address]- 5671 Feb, [facility] [place] [facility] [address] [id number] [place] [address]- 6976 Feb, [facility] [place] [facility] [address] [id number] [place] [address]- 9212 Jan, [facility] [place] [facility] [address] [id number] [place] [address]- 2546 Jan, [facility] [place] [facility] [address] [id number] [place] [address]- 7327 Jan, [facility] [place] [facility] [address] [id number] [place] [address]- 9905 Jan, [facility] [place] [facility] [address] [id number] [place] [address]- 5557 Jan, [facility] [place] [facility] [address] [id number] [place] [address]- 8158 Jan, [facility] [place] [facility] [address] [id number] [place] [address]50 Jan, [facility] [place] [facility] [address] [id number] [place] Jan, [facility] [place] [facility] [address] [id number] [place] [address]- 0411 Dec, [facility] [place] [facility] [address] [id number] [place] [address]- 6493 Dec, [facility] [place] [facility] [address] [id number] [place] [address]- 6727 Dec, [facility] [place] [facility] [address] [id number] [place] [address]- 6445 Dec, [facility] [place] [facility] [address] [id number] [address]- 1217 Dec, [facility] [place] [facility] [address] [id number] [address]- 1872 Dec, [facility] [place] [facility] [address] [id number] [place] [address]- 1203 Dec, [facility] [place] [facility] [address] [id number], [place] [address]- 1864 Dec, [facility] [place] [facility] [address] [id number] [place] [address]- 9996 Nov, [facility] [place] [facility] [address] [id number] [place] [address]- 4273 22 Nov, 2012 [facility] [address] [id number] [place] [address]- 1116 14 Nov, 2012 [facility] [place] [facility] [address] [id number] [place] [address]- 5310 14 Nov, 2012 [facility] [address] [id number] [place] [address]- 7092 09 Nov, 2012 [facility] [place] [facility] [address] [id number] [place] [address]- 5079 Nov, [facility] [place] [facility] [address] [id number] [place] [address]- 7992 Nov, [facility] [place] [facility] [address] [id number] [place] [address]- 2837 10 Oct, 2012 [facility] [place] [facility] [address] [id number] [place] [address]- 0502 10 Oct, 2012 [facility] [place] [facility] [address] [id number] [place] [address]- 6976 05 Oct, 2012 [facility] [place] [facility] [address] [id number] [place] [address]- 5125 Sep, [facility] [place] [facility] [address] [id number] [place] [address]- 2476 Sep, [facility] [place] [facility] [address] [id number] [place] [address]- 2276 Sep, [facility] [place] [facility] [address] [id number] [place] [address]- 2412 Sep, [facility] [place] [facility] [address] [id number] [place] [address]- 5231 Aug, [facility] [place] [facility] [address] [id number] [place] [address]- 2546 17 Aug, 2012 [facility] [place] [facility] [address] [id number] [place] [address]- 4651 Aug, [facility] [address] [id number] [place] [address]- 7876 Aug, [facility] [place] [facility] [address] [id number] [place] [address]- 4548 Aug, [facility] [place] [facility] [address] [id number] [place] [address]- 0039 Jul, [facility] [place] [facility] [address] [id number] [place] [address]- 0118 Jul, [facility] [address] [id number] [place] [address]- 7443 Jul, [facility] [place] [facility] [address] [id number] [place] [address]- 4724 Jul, [facility] [place] [facility] [address] [id number] [place] [address]- 1665 Jul, [facility] [place] [facility] [address] [id number] [place] [address]- 4053 June, [facility] [place] [facility] [address] [id number] [place] [address]- 8964 June, [facility] [place] [facility] [address] [id number] [place] [address]- 1605 June, [facility] [place] [facility] [address] [id number] [place] [address]- 3887 June, [facility] [place] [facility] [address] [id number] [address]- 2031 June, [facility] [place] [facility] [address] [id number] [place] [address]- 7693 May, [facility] [place] [facility] [address] [id number] [place] [address]- 0555 May, [facility] [place] [facility] [address] [id number] [place] [address]- 2230 May, [facility] [place] [facility] [address] [id number], [place] [address]- 4071 17 May, 2012 [facility] [address] [facility] [id number] [place] [address]- 5018 16 May, 2012 [facility] [place] [facility] [address] [facility] [id number] [place] [address]- 5776 10 May, 2012 [facility] [id number] [place] [address]- 0916 04 May, 2012 [facility] [address] [facility] [id number] [place] [address]- 3046 19 Apr, 2012 [facility] [id number] [place] [address]- 8518 11 Apr, 2012 [facility] [id number] [place] [address]- 9685 08 Apr, 2012 [facility] [id number] [place] [address]- 2154 26 Mar, 2012 [facility] [id number] [place] [address]- 5548 25 Mar, 2012 [facility] [id number] [place] [address]- 7291 20 Mar, 2012 [facility] [id number] [place] [address]- 1187 19 Mar, 2012 [facility] [place] [facility] [id number] [place] [address]- 0686 13 Mar, 2012 [facility] [place] [facility] [address] [id number] [address] 2548 13 Mar, 2012 [facility] [place] [facility] [id number] [place] [address]- 7674 07 Mar, 2012 [facility] [place] [facility] [id number] [place] [address]- 2956 07 Mar, 2012 [facility] [place] [facility] [id number] [address] Feb, [facility] [address] [id number] [place] [address]- 3282 29 Feb, 2012 [facility] [place] [facility] [address] [id number] [place] [address]- 2583 28 Feb, 2012 [facility] [place] [facility] [address] [id number] [place] [address]- 8588 26 Feb, 2012 [facility] [place] [facility] [address] [id number] [place] [address]- 4803 18 Feb, 2012 [facility] [address] [id number] [place] [address]- 8893 15 Feb, 2012 [facility] [place] [facility] [address] [id number] [place] [address]- 3186 14 Feb, 2012 [facility] [place] [facility] [address] [id number] [place] [address]- 9122 27 Jan, 2012 [facility] [place] [facility] [address] [id number] [place] [address]- 2563 Jan, [facility] [place] [facility] [address] [id number] [place] [address]- 7060 Jan, [facility] [place] [facility] [address] [id number] [place] [address]- 3737 Jan, [facility] [place] [facility] [address] [id number], [place] [address]- 6378 Jan, [facility] [place] [facility] [address] [id number], [place] [address]- 2078 27 Jan, 2012 [facility] [place] [facility] [address] [id number] [place] [address]- 9739 Jan, [facility] [place] [facility] [address] [id number] [place] [address]- 9622 Jan, [facility] [place] [facility] [address] [id number] [place] [address]- 3444 13 Jan, 2012 [facility] [place] [facility] [address] [id number], [place] [address]- 7108 13 Jan, 2012 [facility] [place] [facility] [address] [id number] [place] [address]- 1760 11 Jan, 2012 [facility] [place] [facility] [address] [id number] [place] [address]- 6966 11 Jan, 2012 [facility] [place] [facility] [address] [facility] [id number] [place] [address]- 2996 10 Jan, 2012 [facility] [place] [facility] [address] [id number] [place] [address]- 8523 10 Jan, 2012 [facility] [place] [facility] [address] [facility] [id number] [place] [address]- 8372 29 Dec, 2011 [facility] [place] [facility] [address] [id number] [place] [address]- 3889 29 Dec, 2011 [facility] [place] [facility] [id number] [place] [address]- 8366 Dec, [facility] [place] [facility] [address] [id number] [place] [address] Dec, [facility] [place] [facility] [address] [facility] [id number] [place] [address] Dec, [facility] [place] [facility] [address] [facility] [id number] [place] [address] 27 Dec, 2011 [facility] [place] [facility] [address] [id number] [place] [address] Dec, [facility] [place] [facility] [address] [id number] [address] Dec, [facility] [place] [facility] [address] [id number] [place] [address] 1573 13 Dec, 2011 [facility] [place] [facility] [address] [facility] [id number] [place] [address] 13 Dec, 2011 [facility] [place] [facility] [address] [id number] [address] 13 Dec, 2011 [facility] [place] [facility] [address] [id number] [place] [address] Dec, [facility] [place] [facility] [address] [id number] [place] [address] 2779 Dec, [facility] [place] [facility] [address] [id number] [place] [address]444 Dec, [facility] [place] [facility] [address] [id number] [place] [address] 9246 Dec, [facility] [place] [facility] [address] [id number] [place] [address] 49[address] Dec, [facility] [place] [facility] [address] [id number] [place] [address] 2654 Dec, [facility] [place] [facility] [address] [id number] [place] [address] 3467 Dec, [facility] [place] [facility] [address] [id number] [place] [address]096 Dec, [facility] [place] [facility] [address] [id number] [place] [address] 8716 Dec, [facility] [place] [facility] [address] [id number] [place] [address]879 Nov, [facility] [place] [facility] [address] [id number] [place] [address] 5743 Nov, [facility] [place] [facility] [address] [id number] [place] [address]- 5760 30 Nov, 2011 [facility] [place] [facility] [address] [id number] [place] [address]- 2495 Nov, [facility] [place] [facility] [address] [id number] [place] [address] 7272 24 Nov, 2011 [facility] [place] [facility] [address] [id number] [place] [address] 5157 24 Nov, 2011 [facility] [place] [facility] [address] [id number] [place] [address] 6961 15 Nov, 2011 [facility] [place] [facility] [address] [id number] [place] [address]124 15 Nov, 2011 [facility] [place] [facility] [address] [id number] [place] [address]879 10 Nov, 2011 [facility] [place] [facility] [address] [id number] [place] [address] 0107 10 Nov, 2011 [facility] [place] [facility] [address] [id number] [place] [address] 1785 Nov, [facility] [place] [facility] [address] [id number] [place] [address] 7349 Nov, [facility] [place] [facility] [address] [id number] [place] [address] 3640 04 Nov, 2011 [facility] [place] [facility] [address] [id number] [place] [address] 8620 30 Oct, 2011 [facility] [place] [facility] [address] [id number] [place] [address] 7767 27 Oct, 2011 [facility] [place] [facility] [address] [id number] [place] [address] 9103 24 Oct, 2011 [facility] [place] [facility] [address] [id number] [place] [address] 4116 20 Oct, 2011 [facility] [place] [facility] [address] [id number] [address] 41[address] 11 Oct, 2011 [facility] [place] [facility] [address] [id number] [address] 11 Oct, 2011 [facility] [place] [facility] [address] [id number] [place] [address] 4[address] 24 Sep, 2011 [facility] [place] [facility] [address] [id number] [address] 37[address] 23 Sep, 2011 [facility] [place] [facility] [address] [id number] [place] [address]- 4320 16 Sep, 2011 [facility] [place] [facility] [address] [id number] [place] [address]- 6824 Sep, [facility] [place] [facility] [address] [id number] [place] [address] 5444 Aug, [facility] [place] [facility] [address] [id number] [place] [address] 7566 Aug, [facility] [place] [facility] [address] [id number] [place] [address]- 7566 Aug, [facility] [place] [facility] [address] [id number] [place] [address] 0129 Jul, [facility] [place] [facility] [address] [id number] [place] [address]- 9351 Jul, [facility] [place] [facility] [address] [id number] [place] [address]- 1132 Jul, [facility] [place] [facility] [address] [id number] [place] [address] 9029 Jul, [facility] [place] [facility] [address] [id number] [place] [address] 2207 June, [facility] [place] [facility] [address] [id number] [place] [address] 1981 June, [facility] [place] [facility] [address] [id number] [place] [address]- 5659 June, [facility] [place] [facility] [address] [id number] [place] [address]- 8286 June, [facility] [place] [facility] [address] [id number] [place] [address]- 2194 June, [facility] [place] [facility] [address] [id number] [place] [address]- 5786 June, [facility] [place] [facility] [address] [id number] [place] [address]- 6022 May, [facility] [place] [facility] [address] [id number] [place] [address]- 1720 May, [facility] [place] [facility] [address] [id number] [place] [address]- 6872 May, [facility] [place] [facility] [address] [id number] [place] [address]- 9099 24 May, 2011 [facility] [place] [facility] [address] [id number] [place] [address]- 9405 May, [facility] [place] [facility] [address] [id number] [place] [address]- 4368 May, [facility] [address] [id number] [place] [address]- 8552 May, [facility] [place] [facility] [address] [id number] [place] [address]- 1217 May, [facility] [address] [id number] [place] [address]- 7247 May, [facility] [address] [id number] [place] [address]- 3829 Apr, [facility] [place] [facility] [address] [id number] [place] [address]- 3535 Mar, [facility] [address] [id number] [place] [address]- 8504 Mar, [facility] [place] [facility] [address] [id number] [place] [address]- 7885 Mar, [facility] [place] [facility] [address] [id number] [address] 5346 Mar, [facility] [place] [facility] [address] [id number] [place] [address]- 7687 Feb, [facility] [place] [facility] [address] [id number] [place] [address]- 1844 Feb, [facility] [place] [facility] [address] [id number] [place] [address]- 0839 Feb, [facility] [place] [facility] [address] [id number] [address] 4435 28 Jan, 2011 [facility] [place] [facility] [address] [address] [id number] [place] [address] 21 Jan, 2011 [facility] [place] [facility] [address] [id number] [place] [address] 14 Jan, 2011 [facility] [place] [facility] [address] [facility] [id number] [place] [address] 29 Dec, 2010 [facility] [place] [facility] [address] [id number] [place] [address] 28 Dec, 2010 [facility] [place] [facility] [address] [id number] [place] [address], [place] [address] 16 Dec, 2010 [facility] [place] [facility] [address] [id number] [place] [address] 15 Dec, 2010 [facility] [place] [facility] [address] [facility] [id number] [place] [address], [place] [address] 31 Nov, 2010 [facility] [place] [facility] [address] [id number] [place] [address] 101[address] 31 Nov, 2010 [facility] [place] [facility] [address] [id number] [place] [address] 19 Nov, 2010 [facility] [place] [facility] [address] [facility] [id number] [place] [address]12 18 Nov, 2010 [facility] [place] [facility] [address] [id number] [address] 13 Oct, 2010 [facility] [place] [facility] [address] [id number], [place] [address] 20 Jul, 2010 [facility] [place] [facility] [address] [id number] [place] [address] 1772 13 Jan, 2010 [facility] [place] [facility] [address] [facility] [id number] [place] [address] 30 Dec, 2009 [facility] [place] [facility] [address] [facility] [id number] [place] [address] 09 Dec, 2009 [facility] [place] [facility] [address] [id number] [place] [address] 4[address] Dec, [facility] [place] [facility] [address] [id number] [place] [address]96 Dec, [facility] [place] [facility] [address] [id number] [place] [address] 2546 Dec, [facility] [place] [facility] [address] [id number] [place] [address] 2546 Dec, [facility] [place] [facility] [address] [id number] [place] [address] 2545 Nov, [facility] [place] [facility] [address] [id number] [place] [address] 5066 Nov, [facility] [place] [facility] [address] [id number] [place] [address] Nov, [facility] [place] [facility] [address] [id number] [place] [address] 9175 Apr, [facility] [place] [facility] [address] [id number] [place] [address] 254 Apr, [facility] [place] [facility] [address] [id number] [place] [address] 2549 29 Jan, 2009 [facility] [place] [facility] [address] [id number] [place] [address] 2546 28 Jan, 2009 [facility] [place] [facility] [address] [id number] [place] [address] 2546 23 Jan, 2009 [facility] [place] [facility] [address] [id number] [place] [address] 2546 17 Jan, 2009 [facility] [place] [facility] [address] [id number] [place] [address] 2546 14 Jan, 2009 [facility] [place] [facility] [address] [id number] [place] [address] 2546 Jan, [facility] [place] [facility] [address] [id number] [place] [address] Dec, [facility] [id number] [address] Dec, [facility] [id number] [place] [address] [id number]- [address]29 Dec, [facility] [id number] [place] [address] [id number]- 9988 Dec, [facility] [id number] [place] [address] [id number]- 1110 Dec, [facility] [id number] [place] [address] 972147- 1073 Dec, [facility] [id number] [place] [address] [id number]- 1795 Nov, [facility] [id number] [place] [address] 136591- 3047 Nov, [facility] [id number] [place] [address]- 3433 Aug, [facility] [id number] [place] [address] [id number]- 1212 Jul, [facility] [id number] [place] [address] [id number]- 9697 June, [facility] [id number] [address] Apr, IMMUNIZATIONS No Known Immunizations SOCIAL HISTORY [...] of loosened hardware/hip replacement ( [facility] in [place]) 09/2008 Hospitalization History in pt rehab s/p left hip repair 09/2008-11/2008 Hospitalization History [facility] 07/2009
--- OUTSIDE RECORDS SUMMARY | 2017-10-26 13:50 | XMS REPORT ---
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 425685211 Problem Panic attacks F41.0 Active 494934556 Problem Seasonal allergic rhinitis due to other allergic trigger J30.89 Active 482137141 Problem Dementia without behavioral disturbance, unspecified dementia type F03.90 Active 15668312 Problem Generalized osteoarthritis M15.9 Active 168246991 Problem Anxiety disorder, unspecified F41.9 Active 607893082 Problem Generalized anxiety disorder F41.1 Active 325544517 ALLERGIES No Known Allergies SOCIAL HISTORY Never Assessed PLAN OF CARE Activity Details Follow Up prn Reason: VITAL SIGNS Height 63 in 2016-06-24 Weight 132.4 lbs 2016-06-24 Temperature 98.8 degrees Fahrenheit 2016-06-24 Heart Rate 100 bpm 2016-06-24 Respiratory Rate 20 2016-06-24 BMI 23.45 kg/m2 2016-06-24 Blood pressure systolic 130 mmHg 2016-06-24 Blood pressure diastolic 72 mmHg 2016-06-24 MEDICATIONS Medication Instructions Dosage Frequency Start Date End Date Duration Status Artificial Tear Solution Ophthalmic 2 times a day 2 drops as needed 12h Active Qdokldsn-Ujlvzh-LL-Thonzonium 3.3-3-10-0.5 MG/ML Otic Three times a day 5 drops into affected ear 8h Feb, 10 day(s) Active Meloxicam 7.5 MG orally 2 times a day 1 tablet 12h 24 Aug, 2016 30 days Active Pyridium 200 MG Orally Three times a day 1 tablet after meals 8h June, June, 2 day(s) Active BusPIRone HCl 5 MG TAKE ONE TABLET BY MOUTH TWICE DAILY 30 Active Clonazepam 0.5 MG Orally 2 times a day- MUST ATTEND APPT ON 06/03/16 FOR FURTHER REFILLS 1 tablet Active Duloxetine HCl 60 mg Orally 2 times a day 1 capsule 12h 30 days Active RESULTS Name Result Date Reference Range UA LONG DIP (IN HOUSE) 2016-06-24 Lot # [id number] Exp date 2017 04 30 Clarity clear Color yellow Odor none GLU negative YADIRA negative KET negative SG 1.020 BLO negative pH 6.5 Protein 1+ URO 0.2 NIT negative TATIANA negative Lot # [id number] Exp date 2017 03 PROCEDURES Procedure Date Ordered Result Body Site URINALYSIS, AUTO, W/O SCOPE June 24, 2016 [facility] VISIT ESTABLISHED PATIENT June 24, 2016 IMMUNIZATIONS No Known Immunizations MEDICAL [...] of loosened hardware/hip replacement ( [facility] in [place]) 09/2008 Hospitalization History in pt rehab s/p left hip repair 09/2008-11/2008 Hospitalization History [facility] 07/2009
--- OUTSIDE RECORDS SUMMARY | 2017-10-26 13:51 | XMS REPORT ---
Author Author KONGBABAK KIM [facility] Address [address] [place] [address] Care Team Providers Care Field Support Rep Name Role Phone BABAK TRIANA Unavailable PROBLEMS Type Condition ICD9-CM Code [id number] Code Onset Dates Condition Status SNOMED Code Problem Generalized osteoarthritis M15.9 Active 567464960 Problem Generalized anxiety disorder F41.1 Active 285185958 Problem Dementia without behavioral disturbance, unspecified dementia type F03.90 Active 68508660 Problem 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 Active 408983806 Problem Meningioma D32.9 Active 022295355 Problem Anxiety F41.9 Active 37823468 Problem Acute drug withdrawal syndrome without complication F19.230 Active 404834952 Problem Seasonal allergic rhinitis due to other allergic trigger J30.89 Active 865309952 Problem Anxiety disorder, unspecified F41.9 Active 764076241 Problem Other chronic pain G89.29 Active 79551987 Problem Panic attacks F41.0 Active 822069596 ALLERGIES No Information ENCOUNTERS Encounter Location Date Diagnosis [facility] [id number] [place] [address] 49702- 0157 June, [facility] [id number] [place] [address] 13869- 0871 June, [facility] [id number] [place] [address] 71244- 9710 May, [facility] [id number] [place] [address] 60931- 1732 May, [facility] [id number] [place] [address] 15213 -5085 May, Anxiety F41.9 ; Acute drug withdrawal syndrome without complication F19.230 and Abdominal pain, unspecified abdominal location R10.9 [facility] [address], [place] [address] 9016 May, Panic attacks F41.0 [facility] [id number] [place] [address] 79925- 9472 May, Other chronic pain G89.29 and Generalized anxiety disorder F41.1 [facility] [id number] [place] [address] 56505- 1340 Apr, Housing problems Z59.9 and Panic attacks F41.0 [facility] [id number] [place] [address] 63020- 0212 Mar, Panic attacks F41.0 [facility] [id number] [place] [address] 12679- 9525 Feb, [facility] [id number] [place] [address] 53874- 7464 Feb, Panic attacks F41.0 [facility] [id number] [place] [address] 14238- 5145 Feb, Pain in right knee M25.561 ; Pain in left knee M25.562 ; Other chronic pain G89.29 ; Housing problems Z59.9 ; Dementia without behavioral disturbance, unspecified dementia type F03.90 ; Generalized anxiety disorder F41.1 and Advance directive declined by patient Z78.9 [facility] [id number] [place] [address] 97636- 3303 Jan, Panic attacks F41.0 [facility] [id number] [place] [address] 18787- 0803 Jan, Panic attacks F41.0 [facility] [id number] [place] [address] 38977- 5172 Dec, Panic attacks F41.0 [facility] [id number] [place] [address] 16990 -6236 Nov, Allergic contact dermatitis due to cosmetics L23.2 [facility] [address] [place] [address]- 7783 Nov, Panic attacks F41.0 [facility] [address] 34118- 5528 Oct, Panic attacks F41.0 [facility] [id number] [place] [address] 01698- 2972 Sep, Panic attacks F41.0 ; Insect bite, initial encounter W57.XXXA and 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 [facility] [id number] [place] [address] 66581- 9807 Sep, [place] [address] 41677- 9801 Aug, Generalized anxiety disorder F41.1 [facility] [facility] [id number] [place] [address] 41983- 2157 Jul, [facility] [address] 88651 -4091 June, Seasonal allergic rhinitis due to other allergic trigger J30.89 [facility] [id number] [place] [address] 69192- 6053 June, [facility] [id number] [place] [address] 79708- 4240 June, [facility] [id number] [place] [address] 38947 -1354 June, Dysuria R30.0 and RLQ abdominal pain R10.31 [facility] [id number] [place] [address] 73058- 1024 May, Generalized anxiety disorder F41.1 ; Generalized osteoarthritis M15.9 and Dementia without behavioral disturbance, unspecified dementia type F03.90 [facility] [id number] [place] [address] 14848- 3607 May, [facility] [address] 74258- 1286 May, [facility] [id number] [address] 9902 May, [facility] [address] [address]- 1166 Apr, [facility] [address] 9372 Apr, Generalized anxiety disorder F41.1 [facility] [address] [address]- 7596 Apr, [facility] [id number] [address]- 9850 Apr, [facility] [place] [facility] [id number] [address]- 6858 Apr, [facility] [id number] [place] [address], [place] [address]- 4515 Apr, Generalized anxiety disorder F41.1 [facility] [address] [address]- 0111 Mar, [facility] [place] [facility] [id number] [address]- 4851 Mar, [facility] [place] [facility] [id number], [place] [address]- 4998 Mar, [facility] [place] [facility] [id number] [address]- 4409 Mar, [facility] [place] [facility] [id number] 2223 Mar, Generalized anxiety disorder F41.1 [facility] [place] [facility] [id number] 5199 Feb, Anxiety disorder, unspecified F41.9 [facility] [place] [facility] [address] [address]- 4694 Feb, [facility] [place] [facility] [id number] [address]- 4719 13 Feb, 2016 [facility] [id number] [place] [address] 99093- 5594 Feb, [facility] [id number] [place] [address] 53178 -8718 12 Feb, 2016 Urinary frequency R35.0 and Acute cystitis without hematuria N30.00 [facility] [id number] [place] [address] 21881- 1144 Feb, [facility] [id number] [place] [address] 22406- 9891 Jan, [facility] [id number] [place] [address] 53462- 6368 Jan, [facility] [id number] [place] [address] 22576- 0417 Dec, [facility] [id number] [place] [address] 34808- 2675 14 Dec, 2015 [facility] [id number] [place] [address] 87619- 5748 Dec, Edema, unspecified type R60.9 [facility] [id number] [place] [address] 55138- 5592 Dec, [facility] [id number] [place] [address] 29415- 4140 Dec, [facility] [id number] [place] [address] 53267- 8199 30 Oct, 2015 Generalized anxiety disorder F41.1 [facility] [id number] [place] [address] 76734- 2996 20 Oct, 2015 [facility] [id number] [address]- 4234 16 Oct, 2015 [facility] [id number] [place] [address] 96812- 7336 15 Oct, 2015 [facility] [address], [place] [address]- 1752 Oct, [facility] [id number] [place] [address] 32154- 5402 Aug, Anxiety disorder, unspecified F41.9 [facility] [address], [place] [address]- 9720 Jul, Anxiety disorder, unspecified F41.9 [facility] [id number] [place] [address] 89326- 7552 Jul, Generalized anxiety disorder F41.1 [facility] [id number] [place] [address] 40742- 9167 Jul, [facility] [id number] [place] [address] 30139- 4237 June, [facility] [id number] [place] [address] 35521- 1350 June, [facility] [id number] [place] [address] 85688- 8364 June, [facility] [id number] [place] [address] 52891- 5620 June, [facility] [id number], [place] [address]- 9011 May, [facility] [address], [place] [address] -3857 May, Dementia without behavioral disturbance, unspecified dementia type F03.90 and Generalized osteoarthritis M15.9 [facility] [id number] [place] [address] 23201- 3346 May, Generalized osteoarthritis M15.9 and 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 [facility] [address], [place] [address]- 6306 Apr, [facility] [id number] [place] [address] 62492- 9065 Apr, [facility] [id number] [place] [address] 50861- 7243 Apr, [facility] [id number] [place] [address] 46368- 3973 Mar, [facility] [id number] [place] [address] 33714- 0576 Mar, [facility] [address] 27996- 3417 Mar, Generalized anxiety disorder F41.1 [place] [address] 85637- 6107 Feb, Other infective acute otitis externa of right ear H60.391 [place] [id number] [place] [address] 43828- 7201 Dec, Dysuria R30.0 ; Generalized osteoarthritis M15.9 and Gastroesophageal reflux disease, esophagitis presence not specified K21.9 [facility] [id number] [place] [address] 07582- 2815 Dec, [place] [id number] [place] [address] 68456- 8568 Dec, Generalized anxiety disorder F41.1 ; Encounter for immunization Z23 and Dementia F03.90 [facility] [id number] [place] [address] 20377- 4166 Nov, [facility] [id number] [place] [address] 57910- 9470 Oct, [facility] [id number] [place] [address] 23046- 7562 Oct, 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 ; Chronic pain 338.29 ; Anxiety 300.00 and Dementia 294.20 [facility] [id number] [place] [address] 40338- 2970 Oct, [facility] [id number] [place] [address] 54317- 6207 Aug, Generalized anxiety disorder 300.02 and Dementia 294.20 [facility] [id number] [place] [address] 64690- 8559 Aug, [facility] [id number] [place] [address] 55568- 4818 Aug, Anxiety 300.00 and Chronic pain 338.29 [facility] [id number] [place] [address] 37618- 3580 Jul, [facility] [id number] [place] [address] 61350- 5738 Jul, [facility] [id number] [place] [address] 50118- 3264 June, [facility] [id number] [place] [address] 90483- 4518 June, Anxiety, generalized 300.02 ; Dementia 294.20 and No condition on [place] II V71.09 [facility] [id number] [place] [address] 67022- 0555 May, [facility] [id number] [place] [address] 83677- 3197 May, [facility] [id number] [place] [address] 20628- 4372 Apr, [facility] [id number] [place] [address] 43556- 3049 Apr, [facility] [id number] [place] [address] 84706- 5187 Apr, [facility] [id number] [place] [address] 88481- 4207 Apr, [facility] [id number] [place] [address] 09538- 5884 Apr, [facility] [id number] [place] [address] 34062- 2546 Apr, [facility] [place] [facility] [address] [id number] [place] [address]- 8872 Apr, [facility] [place] [facility] [address] [id number] [place] 2136 Apr, [facility] [place] [facility] [address] [id number] [place] [address]- 7321 Apr, [facility] [place] [facility] [address] [id number] [place] [address]- 8255 Apr, [facility] [place] [facility] [address] [id number] [place] [address]- 1386 Apr, [facility] [place] [facility] [address] [id number] [place] [address]- 9790 Apr, [facility] [place] [facility] [address] [facility] [id number] [place] [address]- 6991 Apr, [facility] [place] [facility] [address] [id number] [place] [address]- 5695 Apr, [facility] [place] [facility] [address] [id number] [place] [address]- 4108 Apr, [facility] [place] [facility] [address] [facility] [id number] [place] [address]- 6018 Apr, [facility] [place] [facility] [address] [id number] [place] [address]- 9133 Mar, 2014 [facility] [place] [facility] [address] [id number] [place] [address]- 5320 Mar, 2014 [facility] [place] [facility] [address] [id number] [place] [address]- 9560 Mar, 2014 [facility] [place] [facility] [address] [id number] [place] [address]- 7609 Mar, 2014 [facility] [place] [facility] [address] [facility] [id number] [place] [address]- 8853 Mar, [facility] [place] [facility] [address] [id number] [place] [address]- 2951 26 Mar, 2014 [facility] [place] [facility] [address] [id number] [place] [address]- 5226 23 Mar, 2014 [facility] [place] [facility] [address] [id number] [place] [address]- 9710 23 Mar, 2014 [facility] [place] [facility] [address] [id number] [place] [address]- 5677 20 Mar, 2014 [facility] [place] [facility] [address] [id number] [place] [address]- 3385 20 Mar, 2014 [facility] [place] [facility] [address] [id number] [place] [address]- 3761 18 Mar, 2014 [facility] [place] [facility] [address] [facility] [id number] [place] [address]- 9313 18 Mar, 2014 [facility] [place] [facility] [address] [facility] [id number] [place] [address]- 9429 17 Mar, 2014 [facility] [place] [facility] [address] [facility] [id number] [place] [address]- 7451 17 Mar, 2014 [facility] [place] [facility] [address] [facility] [id number] [place] [address]- 2114 17 Mar, 2014 [facility] [place] [facility] [address] [facility] [id number] [place] [address]- 2336 17 Mar, 2014 [facility] [place] [facility] [address] [facility] [id number] [place] [address]- 2545 13 Mar, 2014 [facility] [place] [facility] [address] [id number] [place] [address]- 9797 13 Mar, 2014 [facility] [place] [facility] [address] [facility] [id number] [place] [address]- 3208 13 Mar, 2014 [facility] [place] [facility] [address] [facility] [id number] [place] [address]- 0485 13 Mar, 2014 [facility] [place] [facility] [address] [facility] [id number] [place] [address]- 6106 Mar, 2014 [facility] [place] [facility] [address] [id number] [place] [address]- 6056 Mar, 2014 [facility] [place] [facility] [address] [id number] [place] [address]- 2546 Mar, 2014 [facility] [place] [facility] [address] [id number] [place] [address] 2546 Mar, 2014 [facility] [place] [facility] [address] [id number] [place] [address]- 2543 Mar, [facility] [place] [facility] [address] [id number] [place] [address]- 1958 Mar, [facility] [place] [facility] [address] [id number] [place] [address]- 7363 Feb, [facility] [place] [facility] [address] [id number] [place] [address]- 5232 Feb, [facility] [place] [facility] [address] [id number] [place] [address]- 0559 Feb, [facility] [place] [facility] [address] [id number] [place] [address]- 2014 Feb, [facility] [place] [facility] [address] [id number] [place] [address]- 7490 Feb, [facility] [place] [facility] [address] [id number] [place] [address]- 2545 Feb, [facility] [place] [facility] [address] [id number] [place] [address]- 2775 Feb, [facility] [place] [facility] [address] [id number] [place] [address]- 2542 Feb, [facility] [place] [facility] [address] [id number] [place] [address]- 2542 Feb, [facility] [place] [facility] [address] [id number] [place] [address]- 4806 Feb, [facility] [place] [facility] [address] [id number] [place] [address]- 9115 Feb, [facility] [place] [facility] [address] [id number] [place] [address]- 7231 Feb, [facility] [place] [facility] [address] [id number] [place] [address]- 8207 Feb, [facility] [place] [facility] [address] [id number] [place] [address]- 2940 Feb, [facility] [place] [facility] [address] [id number] [place] [address]- 3127 Feb, [facility] [place] [facility] [address] [id number] [place] [address]- 8424 Jan, [facility] [place] [facility] [address] [id number] [place] [address]- 9917 Jan, [facility] [place] [facility] [address] [id number] [place] [address]- 4400 Jan, [facility] [place] [facility] [address] [id number] [place] [address]- 9756 Jan, [facility] [place] [facility] [address] [id number] [place] [address]- 9523 Jan, [facility] [place] [facility] [address] [id number] [place] [address]- 5291 Jan, [facility] [place] [facility] [address] [id number] [place] [address]- 2875 Jan, [facility] [place] [facility] [address] [id number] [place] [address]- 2862 Jan, [facility] [place] [facility] [address] [id number] [place] [address]- 3006 Jan, [facility] [place] [facility] [address] [id number] [place] [address]- 0574 Jan, [facility] [place] [facility] [address] [id number] [place] [address]- 6643 Jan, [facility] [place] [facility] [address] [id number] [place] [address]- 1981 Jan, [facility] [place] [facility] [address] [id number] [place] [address]- 9967 Jan, [facility] [place] [facility] [address] [id number] [place] [address]- 8439 Jan, [facility] [place] [facility] [address] [id number] [place] [address] Jan, [facility] [place] [facility] [address] [id number] [place] [address] Jan, [facility] [place] [facility] [address] [id number] [place] [id number] Jan, [facility] [place] [facility] [address] [id number] [place] [address] Jan, [facility] [place] [facility] [address] [id number] [place] [address] Jan, [facility] [place] [facility] [address] [id number] [place] [address] Jan, [facility] [place] [facility] [address] [id number] [place] [address] Dec, [facility] [place] [facility] [address] [id number] [place] [address] Dec, [facility] [place] [facility] [address] [id number] [place] [address] Dec, [facility] [place] [facility] [address] [id number] [place] [address] Dec, [facility] [place] [facility] [address] [id number] [place] [address] Dec, [facility] [place] [facility] [address] [id number] [place] [address] Dec, [facility] [place] [facility] [address] [id number] [place] [address] Dec, [facility] [place] [facility] [address] [id number] [place] [address] Nov, [facility] [place] [facility] [address] [id number] [place] [address] Nov, [facility] [place] [facility] [address] [id number] [place] [address] Nov, [facility] [place] [facility] [address] [id number] [place] [address] Nov, [facility] [place] [facility] [address] [id number] [place] [address] Nov, [facility] [place] [facility] [address] [id number] [place] [address] Nov, [facility] [place] [facility] [address] [id number] [place] [address] Nov, [facility] [place] [facility] [address] [id number] [place] [address] Nov, [facility] [place] [facility] [address] [id number] [place] [address] Nov, [facility] [place] [facility] [address] [id number] [place] [address] Nov, [facility] [place] [facility] [address] [id number], [place] [address] 29 Oct, 2013 [facility] [place] [facility] [address] [id number] [place] [address] 29 Oct, 2013 [facility] [place] [facility] [address] [id number] [place] [address] 15 Oct, 2013 [facility] [place] [facility] [address] [id number] [place] [address] 15 Oct, 2013 [facility] [place] [facility] [address] [id number] [place] [address] 15 Oct, 2013 [facility] [place] [facility] [address] [id number] [place] [address] 15 Oct, 2013 [facility] [place] [facility] [address] [id number] [place] [address] Oct, [facility] [place] [facility] [address] [id number] [place] [address] Oct, [facility] [place] [facility] [address] [id number] [place] [address] Oct, [facility] [place] [facility] [address] [id number] [place] [address] Oct, [facility] [place] [facility] [address] [id number] [place] [address] Sep, [facility] [place] [facility] [address] [id number] [place] [address] Sep, [facility] [place] [facility] [address] [id number] [place] [address] Sep, [facility] [place] [facility] [address] [id number] [place] [address] Sep, [facility] [place] [facility] [address] [id number] [place] [address] Sep, [facility] [place] [facility] [address] [id number] [place] [address] Sep, [facility] [place] [facility] [address] [id number] [place] [address] Sep, [facility] [place] [facility] [address] [id number] [place] [address] Sep, [facility] [place] [facility] [address] [id number] [place] [address] Sep, [facility] [place] [facility] [address] [id number] [place] [address] Sep, [facility] [place] [facility] [address] [id number] [place] [address] Aug, [facility] [place] [facility] [address] [id number] [place] [address] Aug, [facility] [place] [facility] [address] [id number] [place] [address] Aug, [facility] [place] [facility] [address] [id number] [place] [address] Aug, [facility] [place] [facility] [address] [id number] [place] [address] Aug, [facility] [place] [facility] [address] [id number] [place] [address] Aug, [facility] [facility] [address] [id number] [place] [address] Aug, [facility] [place] [facility] [address] [id number] [place] [address] 7726 Aug, [facility] [facility] [address] [id number] [place] [address] 40[address] Aug, [facility] [place] [facility] [address] [id number] [place] [address] 1998 Aug, [facility] [facility] [address] [id number] [place] [address] 26[address] Aug, [facility] [address] [id number] [place] [address]- 3[address] Aug, [facility] [place] [facility] [address] [id number] [place] [address] Jul, [facility] [place] [facility] [address] [id number] [place] [address] 1487 Jul, [facility] [place] [address] [id number] [place] [address]- 3534 Jul, [facility] [place] [facility] [address] [id number] [place] [address]- 6149 Jul, [facility] [place] [facility] [address] [id number] [place] [address]- 4196 Jul, [facility] [place] [facility] [address] [id number] [place] [address]- 6851 Jul, [facility] [place] [facility] [address] [id number] [place] [address]- [address]21 17 Jul, 2013 [facility] [place] [facility] [address] [id number] [place] [address]- 7310 Jul, [facility] [place] [facility] [address] [id number] [place] [address]- 7739 Jul, [facility] [place] [facility] [address] [id number] [place] [address]- 9836 Jul, [facility] [place] [facility] [address] [id number] [place] [address]- 1040 Jul, [facility] [place] [address] [id number] [place] [address]- 3142 Jul, [facility] [place] [facility] [address] [id number] [place] [address]- 8658 Jul, [facility] [place] [facility] [address] [id number] [place] [address]- 7646 Jul, [facility] [address] [id number] [place] [address]- 5735 Jul, [facility] [address] [id number], [place] [address]- 86[address] Jul, [facility] [place] [address] [id number] [place] [address]- 5482 Jul, [facility] [address] [id number] [place] [address]- 5547 June, [facility] [address] [id number] [place] [address]- 2875 June, [facility] [address] [id number], [place] [address] June, [facility] [address] [id number] [place] [address]- 9919 June, [facility] [address] [id number] [place] [address]- 3463 June, [facility] [address] [id number] [place] [address]- 2290 June, [facility] [address] [id number] [place] [address]- 9326 June, [facility] [address] [id number] [place] [address]- 0260 June, [facility] [address] [id number] [place] [address]- 3108 June, [facility] [address] [id number] [place] [address]- 5931 June, [facility] [address] [id number] [place] [address]- 0554 June, [facility] [address] [id number] [place] [address]- 8032 June, [facility] [address] [id number] [place] [address]- 4910 June, [facility] [address] [id number] [place] [address]- 9466 June, [facility] [address] [id number] [place] [address]- 8747 June, [facility] [address] [id number] [place] [address]- 6191 June, [facility] [address] [id number] [place] [address]- 8510 June, [facility] [address] [id number] [place] [address]- 1616 June, [facility] [address] [id number] [place] [address]- 0930 June, [facility] [address] [id number] [place] June, [facility] [address] [id number] [place] [address]- 6391 June, [facility] [facility] [address] [id number] [place] [address]- 9964 June, [facility] [address] [id number] [place] [address]- 7290 June, [facility] [address] [id number] [place] [address]- 1088 June, [facility] [address] [id number] [place] [address]- 5884 June, [facility] [address] [id number] [place] [address]- 3739 June, [facility] [address] [id number] [place] [address]- 2365 June, [facility] [address] [id number] [place] [address]- 2380 June, [facility] [address] [id number] [place] [address]- 4115 June, [facility] [address] [id number] [place] [address]- 3601 June, [facility] [address] [id number] [place] [address]- 7036 June, [facility] [address] [id number] [place] [address]- 0568 June, [facility] [address] [id number] [place] [address]- 7369 May, [facility] [address] [id number] [place] [address]- 9412 May, [facility] [address] [id number] [place] [address]- 5544 May, [facility] [address] [id number] [place] [address]- 4080 May, [facility] [address] [id number] [place] [address]- 3168 May, [facility] [address] [id number] [place] [address]- 5445 May, [facility] [address] [id number] [place] [address]- 6403 May, [facility] [address] [id number] [place] [address]- 4236 May, [facility] [address] [id number] [place] [address]- 7845 May, [facility] [address] [id number] [place] [address]- 9878 May, [facility] [address] [id number] [place] [address]- 0110 May, [facility] [address] [id number] [place] [address]- 1029 May, [facility] [address] [id number] [place] [address]- 1622 May, [facility] [address] [id number] [place] [address]- 1793 May, [facility] [address] [id number] [place] [address]- 7588 May, [facility] [address] [id number] [place] [address]- 4971 Apr, [facility] [address] [id number] [place] [address]- 4219 Apr, [facility] [address] [id number] [place] [address]- 3790 Apr, [facility] [address] [id number] [place] [address]- 4426 Apr, [facility] [address] [id number] [place] [address]- 9026 Apr, [facility] [address] [id number] [place] [address]- 0906 Apr, [facility] [address] [id number] [place] [address]- 4723 Mar, [facility] [address] [id number] [place] [address]- 8446 Mar, [facility] [address] [id number] [place] [address]- 8191 Mar, [facility] [address] [id number] [place] [address]- 4697 Mar, [facility] [address] [id number] [place] [address]- 2984 Mar, [facility] [address] [id number] [place] [address]- 8923 Mar, [facility] [address] [facility] [id number] [place] [address]- 5968 Mar, [facility] [address] [facility] [id number] [place] [address]- 8481 Mar, [facility] [address] [id number] [place] [address]- 7319 Feb, [facility] [address] [id number] [place] [address]- 1996 Feb, [facility] [address] [facility] [id number] [place] [address]- 0356 Feb, [facility] [address] [facility] [id number] [place] [address]- 6365 Feb, [facility] [address] [id number] [place] [address]- 9383 Feb, [facility] [address] [id number] [place] [address]- 4873 Feb, [facility] [address] [id number] [place] [address]- 1511 Feb, [facility] [address] [id number] [place] [address]- 6952 Feb, [facility] [address] [id number] [place] [address]- 3727 Feb, [facility] [address] [id number] [place] [address]- 2454 Feb, [facility] [address] [id number] [place] [address]- 7542 Jan, [facility] [address] [id number] [place] [address]- 2300 Jan, [facility] [address] [id number] [place] [address]- 3840 Jan, [facility] [address] [id number] [place] [address]- 9787 Jan, [facility] [address] [id number], [place] [address]- 5251 Jan, [facility] [address] [id number], [place] [address]- 5838 Jan, [facility] [address] [id number] [place] [address]- 3794 Jan, [facility] [address] [id number] [place] [address]- 4118 Jan, [facility] [address] [id number] [place] [address]- 6887 Dec, [facility] [address] [id number] [place] [address]- 6392 14 Dec, 2012 [facility] [address] [id number] [place] [address]- 6490 06 Dec, 2012 [facility] [address] [id number] [place] [address]- 0795 Dec, [facility] [address] [id number] [place] [address]- 0150 Dec, [facility] [address] [id number] [place] [address]- 9941 Dec, [facility] [address] [id number] [place] [address]- 9283 Dec, [facility] [address] [id number] [place] [address]- 1262 Dec, [facility] [address] [id number] [place] [address]- 2939 Nov, [facility] [address] [id number] [place] [address]- 8141 Nov, [facility] [address] [id number] [place] [address]- 0544 Nov, [facility] [address] [facility] [id number] [place] [address]- 1259 Nov, [facility] [facility] [address] [id number] [place] [address]- 2006 Nov, [facility] [address] [id number], [place] [address]- 1348 Nov, [facility] [address] [id number] [place] [address]- 5617 07 Nov, 2012 [facility] [address] [id number] [place] [address]- 2918 10 Oct, 2012 [facility] [address] [id number], [place] [address]- 8181 10 Oct, 2012 [facility] [facility] [address] [id number] [place] [address]- 7839 Oct, [facility] [place] [facility] [address] [id number] [place] [address]- 3854 Sep, [facility] [place] [facility] [address] [id number] [place] [address]- 3874 Sep, [facility] [facility] [address] [id number] [place] [address]- 6596 Sep, [facility] [address] [id number] [place] [address]- 4370 Sep, [facility] [facility] [address] [id number] [place] [address]- 3640 Aug, [facility] [place] [facility] [address] [id number] [place] [address]- 5712 Aug, [facility] [facility] [address] [id number] [place] [address]- 1841 Aug, [facility] [facility] [address] [id number] [place] [address]- 2988 Aug, [facility] [address] [id number] [place] [address]- 1907 Aug, [facility] [facility] [address] [id number] [place] [address]- 6361 Jul, [facility] [place] [facility] [address] [id number] [place] [address]- 7938 Jul, [facility] [place] [facility] [address] [id number] [place] [address]- 6941 Jul, [facility] [place] [facility] [address] [id number] [place] [address]- 9376 Jul, [facility] [place] [facility] [address] [id number] [place] [address]- 7966 Jul, [facility] [place] [facility] [address] [id number] [place] [address]- 7958 June, [facility] [address] [id number] [place] [address]- 9596 June, [facility] [address] [id number] [place] [address]- 3053 June, [facility] [address] [id number] [place] [address]- 6424 June, [facility] [address] [id number] [place] [address]- 8530 June, [facility] [address] [id number] [place] [address]- 9882 May, [facility] [address] [id number] [place] [address]- 3293 May, [facility] [address] [id number] [place] [address]- 9845 May, [facility] [address] [id number] [place] [address]- 2845 May, [facility] [address] [id number] [place] [address]- 0951 May, [facility] [address] [id number] [place] [address]- 6082 May, [facility] [address] [id number] [place] [address]- 4262 May, [facility] [place] [facility] [address] [id number] [place] [address]- 3417 Apr, [facility] [place] [facility] [address] [id number] [place] [address]- 9706 Apr, [facility] [place] [facility] [address] [id number] [place] [address]- 8326 Apr, [facility] [place] [facility] [address] [id number] [place] [address]- 4562 Mar, [facility] [place] [facility] [address] [id number] [place] [address]- 2315 25 Mar, 2012 [facility] [address] [id number] [place] [address]- 6566 20 Mar, 2012 [facility] [place] [facility] [address] [id number] [place] [address]- 2546 19 Mar, 2012 [facility] [address] [id number] [place] [address] 2546 13 Mar, 2012 [facility] [place] [facility] [address] [id number] [place] [address]- 2547 13 Mar, 2012 [facility] [place] [facility] [address] [id number] [place] [address]- 6103 07 Mar, 2012 [facility] [address] [id number] [place] [address]- 9978 07 Mar, 2012 [facility] [address] [id number] [place] [address]- 0655 31 Feb, 2012 [facility] [address] [id number] [place] [address]- 8113 29 Feb, 2012 [facility] [address] [id number] [place] [address]- 7378 28 Feb, 2012 [facility] [facility] [address] [id number] [place] [address]- 4272 Feb, [facility] [facility] [address] [id number] [place] [address]- 9600 18 Feb, 2012 [facility] [place] [facility] [address] [id number] [place] [address]- 6959 15 Feb, 2012 [facility] [place] [facility] [address] [id number] [place] [address]- 0111 14 Feb, 2012 [facility] [facility] [address] [id number] [place] [address]- 5266 27 Jan, 2012 [facility] [place] [facility] [address] [id number] [place] [address]- 8033 Jan, [facility] [place] [facility] [address] [id number] [place] [address]- 1586 Jan, [facility] [place] [facility] [address] [id number] [place] [address]- 1436 Jan, [facility] [place] [facility] [address] [id number] [place] [address]- 1356 Jan, [facility] [place] [facility] [address] [id number] [place] [address]- 3317 Jan, [facility] [place] [facility] [address] [id number] [place] [address]- 0762 Jan, [facility] [place] [facility] [address] [id number] [place] [address]- 9067 Jan, [facility] [place] [facility] [address] [id number] [place] [address]- 7973 Jan, [facility] [place] [facility] [address] [id number] [place] [address]- 5667 Jan, [facility] [place] [facility] [address] [id number] [place] [address]- 4844 Jan, [facility] [place] [facility] [address] [id number] [place] [address]- 8278 Jan, [facility] [place] [facility] [address] [id number] [place] [address]- 7889 Jan, [facility] [place] [facility] [address] [id number] [place] [address]- 5904 Jan, [facility] [place] [facility] [address] [id number] [place] [address]- 2229 Dec, [facility] [place] [facility] [address] [id number] [place] [address]- 8168 Dec, [facility] [place] [facility] [address] [id number] [place] [address]- 8419 Dec, [facility] [place] [facility] [address] [id number] [place] [address]- 4443 Dec, [facility] [place] [facility] [address] [id number] [place] [address]- 4068 Dec, [facility] [place] [facility] [address] [id number] [place] [address]- 1296 Dec, [facility] [place] [facility] [address] [id number] [place] [address]- 3030 Dec, [facility] [place] [facility] [address] [id number] [place] [address]- 5874 Dec, [facility] [place] [facility] [address] [id number] [place] [address]- 9669 Dec, [facility] [place] [facility] [address] [id number] [place] [address]- 2501 Dec, [facility] [place] [facility] [address] [id number] [place] [address]- 8315 Dec, [facility] [place] [facility] [address] [id number] [place] [address]- 0907 Dec, [facility] [place] [facility] [address] [id number] [place] [address]- 7681 Dec, [facility] [place] [facility] [address] [id number] [place] [address] Dec, [facility] [place] [facility] [address] [id number] [place] [address] Dec, [facility] [place] [facility] [address] [id number] [place] [address] Dec, [facility] [place] [facility] [address] [id number] [place] [address] Dec, [facility] [place] [facility] [address] [id number] [place] [address] Dec, [facility] [place] [facility] [address] [id number] [place] [address] 1660 Dec, [facility] [place] [facility] [address] [id number] [place] [address] Dec, [facility] [place] [facility] [address] [id number] [place] [address] Nov, [facility] [place] [facility] [address] [id number] [place] [address] Nov, [facility] [place] [facility] [address] [id number] [place] [address] Nov, [facility] [place] [facility] [address] [id number] [place] [address]175 Nov, [facility] [place] [facility] [address] [id number] [place] [address] Nov, [facility] [place] [facility] [address] [id number] [place] [address] Nov, [facility] [place] [facility] [address] [id number], [place] [address] Nov, [facility] [place] [facility] [address] [id number], [place] [address] Nov, [facility] [place] [facility] [address] [facility] [id number], [place] [address] Nov, [facility] [place] [facility] [address] [id number], [place] [address] Nov, [facility] [place] [facility] [address] [id number], [place] [address] Nov, [facility] [place] [facility] [address] [id number][place] [address] Nov, [facility] [place] [facility] [address] [id number], [place] [address] Nov, [facility] [place] [facility] [address] [facility] [id number], [place] [address] Oct, [facility] [place] [facility] [address] [id number], [place] [address] 27 Oct, 2011 [facility] [place] [facility] [address] [id number] [place] [address] 24 Oct, 2011 [facility] [place] [facility] [address] [id number] [place] [address] 3216 20 Oct, 2011 [facility] [place] [facility] [address] [id number] [place] [address] 4646 11 Oct, 2011 [facility] [place] [facility] [address] [id number] [place] [address] 9930 11 Oct, 2011 [facility] [place] [facility] [address] [id number] [place] [address] 24 Sep, 2011 [facility] [place] [facility] [address] [id number] [place] [address]135 Sep, [facility] [place] [facility] [address] [id number] [place] [address] 58[address] Sep, [facility] [place] [facility] [address] [id number] [place] [address] Sep, [facility] [place] [facility] [address] [id number] [place] [address] Aug, [facility] [place] [facility] [address] [id number] [place] [address] 6[address] Aug, [facility] [place] [facility] [address] [id number] [place] [address]100 Aug, [facility] [place] [facility] [address] [id number] [place] [address]32 Jul, [facility] [place] [facility] [address] [id number] [place] [address] 4731 Jul, [facility] [place] [facility] [address] [id number] [place] [address]907 Jul, [facility] [place] [facility] [address] [facility] [id number] [place] [address] 8395 Jul, [facility] [place] [facility] [address] [id number] [place] [address] 4608 June, [facility] [place] [facility] [address] [id number] [place] [address]277 June, [facility] [place] [facility] [address] [id number] [place] [address]456 June, [facility] [place] [facility] [address] [id number] [place] [address] 7209 June, [facility] [place] [facility] [address] [id number] [place] [address] 2666 June, [facility] [place] [facility] [address] [id number] [place] [address] 29[address] June, [facility] [place] [facility] [address] [id number] [place] [address] May, [facility] [place] [facility] [address] [id number] [place] [address] 6332 May, [facility] [place] [facility] [address] [id number] [place] [address]- 9476 May, [facility] [place] [facility] [address] [id number] [place] [address]- 3569 May, [facility] [address] [id number] [place] [address] May, [facility] [place] [facility] [address] [id number] [place] [address]- 6885 18 May, 2011 [facility] [place] [facility] [address] [id number] [place] [address]- 2902 May, [facility] [place] [facility] [address] [id number] [place] [address]- 2510 05 May, 2011 [facility] [place] [facility] [address] [id number] [place] [address] May, [facility] [place] [facility] [address] [id number] [place] [address] 1896 Apr, [facility] [place] [facility] [address] [id number] [place] [address]- 2090 Mar, [facility] [place] [facility] [address] [id number] [place] [address]- 5208 Mar, [facility] [place] [facility] [address] [id number] [place] [address] 1572 Mar, [facility] [place] [facility] [address] [id number] [place] [address]- 4289 Mar, [facility] [place] [facility] [address] [id number] [place] [address]- 8175 Feb, [facility] [place] [facility] [address] [id number] [place] [address]- 6221 Feb, [facility] [place] [facility] [address] [id number] [place] [address]- 9854 Feb, [facility] [place] [facility] [address] [id number] [place] [address]- 7457 Jan, [facility] [place] [facility] [address] [id number] [place] [address]- 9880 Jan, [facility] [place] [facility] [address] [id number] [place] [address]- 9740 Jan, [facility] [place] [facility] [address] [id number] [place] [address]- 9465 Dec, [facility] [place] [facility] [address] [id number] [place] [address]- 2902 28 Dec, 2010 [facility] [place] [facility] [address] [id number] [place] [address]- 5056 16 Dec, 2010 [facility] [place] [facility] [address] [id number] [place] [address]- 7551 15 Dec, 2010 [facility] [place] [facility] [address] [id number] [place] [address]- 4754 31 Nov, 2010 [facility] [place] [facility] [address] [id number] [place] [address]- 6293 31 Nov, 2010 [facility] [address] [id number] [place] [address]- 9438 19 Nov, 2010 [facility] [place] [facility] [address] [id number] [place] [address]- 4974 18 Nov, 2010 [facility] [address] [id number] [place] [address]- 0175 13 Oct, 2010 [facility] [place] [facility] [address] [id number] [place] [address]- 6424 20 Jul, 2010 [facility] [address] [id number] [place] [address], [place] [address] Jan, [facility] [place] [facility] [address] [id number] [place] [address]- 3775 Dec, [facility] [place] [facility] [address] [id number] [place] [address]- 1281 Dec, [facility] [place] [facility] [address] [id number] [place] [address] Dec, [facility] [place] [facility] [address] [id number] [place] [address] Dec, [facility] [place] [facility] [address] [facility] [id number] [place] [address] Dec, [facility] [place] [facility] [address] [id number] [place] [address] Dec, [facility] [place] [facility] [address] [id number] [place] [address] Nov, [facility] [place] [facility] [address] [id number] [place] [address] Nov, [facility] [place] [facility] [address] [id number] [place] [address] Nov, [facility] [place] [facility] [address] [id number] [place] [address] Apr, [facility] [place] [facility] [address] [id number], [place] [address] 17 Apr, 2009 [facility] [place] [facility] [address] [id number] [place] [address] 29 Jan, 2009 [facility] [place] [facility] [address] [id number], [place] [address] Jan, [facility] [place] [facility] [address] [id number] [place] [address] Jan, [facility] [place] [facility] [address] [id number] [place] [address] Jan, [facility] [place] [facility] [address] [id number], [place] [address] 14 Jan, 2009 [facility] [place] [facility] [address] [facility] [id number] [place] [address] Jan, [facility] [place] [facility] [address] [id number], [place] [address] 30 Dec, 2008 [facility] [place] [facility] [address] [id number], [place] [address] Dec, [facility] [place] [facility] [address] [facility] [id number], [place] [address] 18 Dec, 2008 [facility] [place] [facility] [address] [facility] [id number], [place] [address] Dec, [facility] [place] [facility] [address] [id number], [place] [address] Dec, [facility] [place] [facility] [address] [id number], [place] [address] Dec, [facility] [place] [facility] [address] [id number], [place] [address] 28 Nov, 2008 [facility] [place] [facility] [address] [facility] [id number], [place] [address] Nov, [facility] [place] [facility] [address] [id number], [place] [address] 15 Aug, 2008 [facility] [address] [facility] [id number], [place] [address] Jul, [facility] [address] [facility] [id number], [place] [address] June, [facility] [address] [facility] [id number] [place] [address] Apr, IMMUNIZATIONS No Known Immunizations SOCIAL HISTORY [...] of loosened hardware/hip replacement ( [place] in [place]) 09/2008 Hospitalization History in pt rehab s/p left hip repair 09/2008-11/2008 Hospitalization History [facility] 07/2009
--- OUTSIDE RECORDS SUMMARY | 2017-10-26 13:51 | XMS REPORT ---
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 Active 506186255 Problem Panic attacks F41.0 Active 348338281 Problem Seasonal allergic rhinitis due to other allergic trigger J30.89 Active 273957455 Problem Dementia without behavioral disturbance, unspecified dementia type F03.90 Active 32489923 Problem Generalized osteoarthritis M15.9 Active 832063607 Problem Anxiety disorder, unspecified F41.9 Active 766670352 Problem Generalized anxiety disorder F41.1 Active 210823183 ALLERGIES Unknown Allergies SOCIAL HISTORY No smoking Hx information available PLAN OF CARE VITAL SIGNS MEDICATIONS Medication Instructions Dosage Frequency Start Date End Date Duration Status Lorazepam 2 MG Orally 3 times a day 1 tablet 8h Active RESULTS No Results PROCEDURES No Known procedures IMMUNIZATIONS No Known Immunizations
--- OUTSIDE RECORDS SUMMARY | 2017-10-26 13:52 | XMS REPORT ---
Author Author TRACI CORRALES 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 Active 661184098 Problem Panic attacks F41.0 Active 087577499 Problem Seasonal allergic rhinitis due to other allergic trigger J30.89 Active 337468364 Problem Dementia without behavioral disturbance, unspecified dementia type F03.90 Active 59523652 Problem Generalized osteoarthritis M15.9 Active 869283905 Problem Anxiety disorder, unspecified F41.9 Active 552145180 Problem Generalized anxiety disorder F41.1 Active 476260290 ALLERGIES Unknown Allergies SOCIAL HISTORY No smoking Hx information available PLAN OF CARE VITAL SIGNS MEDICATIONS Medication Instructions Dosage Frequency Start Date End Date Duration Status Clonazepam 0.5 MG Orally 2 times a day 1 tablet 12h 28 Active RESULTS No Results PROCEDURES No Known procedures IMMUNIZATIONS No Known Immunizations
--- OUTSIDE RECORDS SUMMARY | 2017-10-26 13:52 | XMS REPORT ---
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 Active 183000475 Problem Panic attacks F41.0 Active 783694552 Problem Seasonal allergic rhinitis due to other allergic trigger J30.89 Active 660648145 Problem Dementia without behavioral disturbance, unspecified dementia type F03.90 Active 19501114 Problem Generalized osteoarthritis M15.9 Active 811988942 Problem Anxiety disorder, unspecified F41.9 Active 956143611 Problem Generalized anxiety disorder F41.1 Active 336498849 ALLERGIES No Known Allergies SOCIAL HISTORY No smoking Hx information available PLAN OF CARE VITAL SIGNS MEDICATIONS No Known Medications RESULTS No Results PROCEDURES No Known procedures IMMUNIZATIONS No Known Immunizations
--- OUTSIDE RECORDS SUMMARY | 2017-10-26 13:52 | XMS REPORT ---
Author Author TRACI CORRALES Organization 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 Active 209482579 Problem Panic attacks F41.0 Active 150970423 Problem Seasonal allergic rhinitis due to other allergic trigger J30.89 Active 440963844 Problem Dementia without behavioral disturbance, unspecified dementia type F03.90 Active 53697607 Problem Generalized osteoarthritis M15.9 Active 602504439 Problem Anxiety disorder, unspecified F41.9 Active 431063361 Problem Generalized anxiety disorder F41.1 Active 018631846 ALLERGIES No Information SOCIAL HISTORY Never Assessed PLAN OF CARE VITAL SIGNS MEDICATIONS Medication Instructions Dosage Frequency Start Date End Date Duration Status Klonopin 0.5 MG Orally. Twice a day 1 tablet 12h Aug, 28 days Active RESULTS No Results PROCEDURES [...] of loosened hardware/hip replacement ( [place] in [place]) 09/2008 Hospitalization History in pt rehab s/p left hip repair 09/2008-11/2008 Hospitalization History [facility] 07/2009
--- OUTSIDE RECORDS SUMMARY | 2017-10-26 13:52 | XMS REPORT ---
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 Active 024632271 Problem Panic attacks F41.0 Active 059695868 Problem Seasonal allergic rhinitis due to other allergic trigger J30.89 Active 121726587 Problem Dementia without behavioral disturbance, unspecified dementia type F03.90 Active 19940135 Problem Generalized osteoarthritis M15.9 Active 237365522 Problem Anxiety disorder, unspecified F41.9 Active 759414367 Problem Generalized anxiety disorder F41.1 Active 351179618 ALLERGIES No Information SOCIAL HISTORY Never Assessed [...] of loosened hardware/hip replacement ( [place] in [place]) 09/2008 Hospitalization History in pt rehab s/p left hip repair 09/2008-11/2008 Hospitalization History [facility] 07/2009
--- OUTSIDE RECORDS SUMMARY | 2017-10-26 13:54 | XMS REPORT ---
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 155585436 Problem Panic attacks F41.0 Active 899564484 Problem Seasonal allergic rhinitis due to other allergic trigger J30.89 Active 789475896 Problem Dementia without behavioral disturbance, unspecified dementia type F03.90 Active 69394422 Problem 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
--- OUTSIDE RECORDS SUMMARY | 2017-10-26 13:54 | XMS REPORT ---
Author Author [facility] Address [address] [place] [address] Care Team Providers Care [employer] Consultant Name Role Phone KATHLEEN TRIANAY Unavailable PROBLEMS Type Condition ICD9-CM Code QPP44-UR Code Onset Dates Condition Status SNOMED Code Problem Generalized osteoarthritis M15.9 Active 447409800 Problem Generalized anxiety disorder F41.1 Active 293041558 Problem Dementia without behavioral disturbance, unspecified dementia type F03.90 Active 22157898 Problem 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 Active 235597996 Problem Meningioma D32.9 Active 218820702 Problem Anxiety F41.9 Active 03824613 Problem Acute drug withdrawal syndrome without complication F19.230 Active 840445118 Problem Seasonal allergic rhinitis due to other allergic trigger J30.89 Active 596321504 Problem Anxiety disorder, unspecified F41.9 Active 521651466 Problem Other chronic pain G89.29 Active 49059467 Problem Panic attacks F41.0 Active 227588809 ALLERGIES No Information ENCOUNTERS Encounter Location Date Diagnosis [facility] [id number] [place] [address] 60474- 0471 Jul, [facility] [id number] [place] [address] 78043- 4246 June, Dementia without behavioral disturbance, unspecified dementia type F03.90 [facility] [id number] [place] [address] 42906- 2565 June, [facility] [id number] [place] [address] 27180- 0804 June, [facility] [id number] [place] [address] 97657- 9795 June, [facility] [id number] [place] [address] 26074- 6864 June, Dementia without behavioral disturbance, unspecified dementia type F03.90 and Anxiety F41.9 [facility] [id number] [place] [address] 30691- 9731 May, [facility] [id number] [place] [address] 22145- 1240 May, [facility] [id number] [place] [address] 97016 -8816 May, Anxiety F41.9 ; Acute drug withdrawal syndrome without complication F19.230 and Abdominal pain, unspecified abdominal location R10.9 [facility] [id number] [place] [address] 77356- 3893 May, Panic attacks F41.0 [facility] [id number] [place] [address] 19083- 8490 May, Other chronic pain G89.29 and Generalized anxiety disorder F41.1 [facility] [id number] [place] [address] 29352- 9491 Apr, Housing problems Z59.9 and Panic attacks F41.0 [facility] [id number] [place] [address] 98013- 8026 Mar, Panic attacks F41.0 [facility] [id number] [place] [address] 88849- 4265 Feb, [facility] [id number] [place] [address] 16977- 7406 Feb, Panic attacks F41.0 [facility] [id number] [place] [address] 26737- 7320 Feb, Pain in right knee M25.561 ; Pain in left knee M25.562 ; Other chronic pain G89.29 ; Housing problems Z59.9 ; Dementia without behavioral disturbance, unspecified dementia type F03.90 ; Generalized anxiety disorder F41.1 and Advance directive declined by patient Z78.9 [facility] [id number] [place] [address]- 4809 Jan, Panic attacks F41.0 [facility] [id number] [place] [address] 43666- 5649 Jan, Panic attacks F41.0 [facility] [id number] [place] [address] 05347- 0206 Dec, Panic attacks F41.0 [facility] [address] 78281 -4904 Nov, Allergic contact dermatitis due to cosmetics L23.2 [facility] [id number] [place] [address] 77605- 9160 Nov, Panic attacks F41.0 [facility] [id number] [place] [address] 85558- 1080 Oct, Panic attacks F41.0 [facility] [id number] [place] [address] 07709- 1686 Sep, Panic attacks F41.0 ; Insect bite, initial encounter W57.XXXA and 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 [facility] [id number] [place] [address] 92491- 6388 Sep, [facility] [id number] [place] [address] 03451- 6548 Aug, Generalized anxiety disorder F41.1 [facility] [id number] [place] [address] 97822- 9469 Jul, [facility] [id number] [place] [address] 21755 -0648 June, Seasonal allergic rhinitis due to other allergic trigger J30.89 [facility] [id number] [place] [address] 53419- 1827 June, [facility] [id number] [place] [address] 13596- 6883 June, [facility] [address], [place] [address] June, Dysuria R30.0 and RLQ abdominal pain R10.31 [facility] [id number] [place] [address] 22473- 2129 May, Generalized anxiety disorder F41.1 ; Generalized osteoarthritis M15.9 and Dementia without behavioral disturbance, unspecified dementia type F03.90 [facility] [id number] [place] [address] 36078- 9783 May, [facility] [id number] [place] [address] 12286- 7862 May, [facility] [id number] [place] [address] 05928- 8037 May, [facility] [id number] [place] [address] 80574- 6307 Apr, [facility] [id number] [place] [address] 67505- 0893 Apr, Generalized anxiety disorder F41.1 [facility] [id number] [place] [address] 23566- 0914 Apr, [facility] [id number] [place] [address] 49915- 8200 Apr, [facility] [id number] [place] [address] 73357- 2574 Apr, [facility] [id number] [place] [address] 53973- 7812 Apr, Generalized anxiety disorder F41.1 [facility] [id number] [place] [address] 70078- 4375 Mar, [facility] [id number] [place] [address] 35560- 8549 Mar, [facility] [id number] [place] [address] 43749- 9613 Mar, [facility] [address] [address]- 4679 Mar, [facility] [id number] [place] [address] 39844- 4715 Mar, Generalized anxiety disorder F41.1 [facility] [id number] [place] [address] 80214- 0250 Feb, Anxiety disorder, unspecified F41.9 [facility] [id number] [place] [address] 28012- 0664 Feb, [facility] [id number] [place] [address] 99241- 9456 Feb, [facility] [id number] [place] [address] 23474- 6178 Feb, [facility] [id number] [place] [address] 57930 -1780 Feb, Urinary frequency R35.0 and Acute cystitis without hematuria N30.00 [facility] [address], [place] [address]- 8022 Feb, [facility] [id number] [place] [address] 58700- 9213 Jan, [facility] [address], [place] [address]- 6080 Jan, [facility] [address], [place] [address]- 3988 Dec, [facility] [address], [place] [address]- 3801 Dec, [facility] [id number] [place] [address] 96457- 1064 Dec, Edema, unspecified type R60.9 [facility] [address], [place] [address]- 4624 Dec, [facility] [address] [facility] [id number] [place] [address]- 0146 Dec, [facility] [address] [facility] [id number] [place] 3976 30 Oct, 2015 Generalized anxiety disorder F41.1 [facility] [address] [facility] [id number] [place] [address]- 1036 20 Oct, 2015 [facility] [address] [facility] [id number] [place] [address] 2546 16 Oct, 2015 [facility] [address] [facility] [id number] [place] [address]- 1356 15 Oct, 2015 [facility] [id number] [place] [address]- 5786 Oct, [facility] [id number] [place] [address]- 4679 Aug, Anxiety disorder, unspecified F41.9 [facility] [id number] [place] [address]- 0281 Jul, Anxiety disorder, unspecified F41.9 [facility] [address] 3640 Jul, Generalized anxiety disorder F41.1 [facility] [id number] 4896 Jul, [facility] [id number] [address]- 2286 June, [facility] [address] [facility] [id number] [address]- 9496 June, [facility] [id number] [place] [address]- 6376 June, [facility] [address] [facility] [id number] [place] [address]- 8066 June, [facility] [address], [place] [address]- 3096 May, [facility] [id number] [place] [address] 49755 -7763 May, Dementia without behavioral disturbance, unspecified dementia type F03.90 and Generalized osteoarthritis M15.9 [facility] [id number] [place] [address] 85042- 2469 May, Generalized osteoarthritis M15.9 and 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 [facility] [id number] [place] [address] 47238- 9273 Apr, [facility] [id number] [place] [address] 59236- 8603 Apr, [facility] [id number] [place] [address] 53453- 6497 Apr, [facility] [id number] [place] [address] 86936- 5291 Mar, [facility] [id number] [place] [address] 13622- 6578 Mar, [facility] [id number] [place] [address] 02801- 9650 Mar, Generalized anxiety disorder F41.1 [facility] [id number] [place] [address] 89328- 3878 Feb, Other infective acute otitis externa of right ear H60.391 [facility] [id number] [place] [address] 87745- 0338 Dec, Dysuria R30.0 ; Generalized osteoarthritis M15.9 and Gastroesophageal reflux disease, esophagitis presence not specified K21.9 [facility] [address] 65574- 6577 Dec, [facility] [id number] [place] [address] 86600- 6080 Dec, Generalized anxiety disorder F41.1 ; Encounter for immunization Z23 and Dementia F03.90 [facility] [id number] [address]- 1047 07 Nov, 2014 [facility] [id number] [place] [address] 56249- 9549 28 Oct, 2014 [facility] [id number] [place] [address] 27851- 1200 24 Oct, 2014 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 ; Chronic pain 338.29 ; Anxiety 300.00 and Dementia 294.20 [facility] [id number] [place] [address] 12815- 1336 11 Oct, 2014 [facility] [id number] [place] [address] 61902- 9201 Aug, Generalized anxiety disorder 300.02 and Dementia 294.20 [facility] [id number] [place] [address] 59006- 9140 Aug, [facility] [id number] [place] [address] 14284- 1263 Aug, Anxiety 300.00 and Chronic pain 338.29 [facility] [id number] [place] [address] 91550- 1087 Jul, [facility] [id number] [place] [address] 65453- 6796 Jul, [facility] [id number] [place] [address] 44192- 6138 June, [facility] [id number] [place] [address] 91002- 3743 June, Anxiety, generalized 300.02 ; Dementia 294.20 and No condition on Wadsworth II V71.09 [facility] [id number] [place] [address] 83184- 9779 14 May, 2014 [facility] [id number] [place] [address] 33966- 8939 May, [facility] [id number] [place] [address] 64682- 2546 Apr, [facility] [place] [facility] [address] [id number] [place] [address]- 6964 Apr, [facility] [place] [facility] [address] [id number] [place] [address]- 8400 Apr, [facility] [place] [facility] [address] [id number] [place] [address]- 6916 Apr, [facility] [place] [facility] [address] [id number] [place] [address]- 9562 Apr, [facility] [place] [facility] [address] [id number] [place] [address]- 1257 Apr, [facility] [place] [facility] [address] [id number] [place] [address]- 9784 Apr, [facility] [place] [facility] [address] [id number] [place] [address]- 8370 Apr, [facility] [place] [facility] [address] [id number] [place] [address]- 1152 Apr, [facility] [place] [facility] [address] [id number] [place] [address]- 2492 Apr, [facility] [place] [facility] [address] [id number] [place] [address]- 2410 Apr, [facility] [place] [facility] [address] [id number] [place] [address]- 1658 Apr, [facility] [place] [facility] [address] [id number] [place] [address]- 0371 Apr, [facility] [place] [facility] [address] [id number] [place] [address]- 6589 Apr, [facility] [place] [facility] [address] [id number] [place] [address]- 4389 Apr, [facility] [place] [facility] [address] [id number] [place] [address]- 3809 Apr, [facility] [place] [facility] [address] [id number] [place] [address]- 8762 Mar, 2014 [facility] [place] [facility] [address] [id number] [place] [address]- 9846 Mar, 2014 [facility] [place] [facility] [address] [id number] [place] [address]- 6836 Mar, 2014 [facility] [place] [facility] [address] [facility] [id number] [place] [address]- 8836 Mar, 2014 [facility] [place] [facility] [address] [id number] [place] [address]- 8704 Mar, 2014 [facility] [place] [facility] [address] [id number] [place] [address]- 7216 Mar, 2014 [facility] [place] [facility] [address] [facility] [id number] [place] [address]- 7817 Mar, 2014 [facility] [place] [facility] [address] [facility] [id number] [place] [address]- 2630 Mar, 2014 [facility] [place] [facility] [address] [facility] [id number] [place] [address]- 8869 Mar, 2014 [facility] [place] [facility] [address] [facility] [id number] [place] [address]- 2282 Mar, 2014 [facility] [place] [facility] [address] [facility] [id number] [place] [address]- 3414 Mar, 2014 [facility] [place] [facility] [address] [facility] [id number] [address]- 3959 Mar, 2014 [facility] [place] [facility] [address] [facility] [id number] [place] [address]- 0601 Mar, 2014 [facility] [place] [facility] [address] [facility] [id number] [place] [address]- 1536 Mar, 2014 [facility] [place] [facility] [address] [facility] [id number] [place] [address]- 7126 Mar, 2014 [facility] [place] [facility] [address] [facility] [id number] [place] [address]- 4197 17 Mar, 2014 [facility] [place] [facility] [address] [id number] [place] [address]- 2426 Mar, 2014 [facility] [place] [facility] [address] [id number] [place] [address] 2546 Mar, 2014 [facility] [place] [facility] [address] [id number] [place] [address]- 4426 Mar, 2014 [facility] [place] [facility] [address] [id number] [place] [address] 2543 Mar, 2014 [facility] [place] [facility] [address] [id number] [place] [address]- 1056 Mar, 2014 [facility] [place] [facility] [address] [id number] [place] [address]- 3101 Mar, 2014 [facility] [place] [facility] [address] [id number] [place] [address] 254 Mar, 2014 [facility] [place] [facility] [address] [id number] [place] [address]- 5758 Mar, 2014 [facility] [place] [facility] [address] [facility] [id number] [place] [address]- 0364 Mar, [facility] [place] [facility] [address] [facility] [id number] [place] [address]- 1812 Mar, [facility] [place] [facility] [address] [id number] [place] [address]- 2548 Feb, [facility] [place] [facility] [address] [id number] [place] [address] 2541 Feb, [facility] [place] [facility] [address] [id number] [place] [address] 2542 Feb, [facility] [place] [facility] [address] [id number] [place] [address]- 2543 Feb, [facility] [place] [facility] [address] [id number] [place] [address]- 0533 Feb, [facility] [place] [facility] [address] [id number] [place] [address]- 9551 Feb, [facility] [place] [facility] [address] [id number] [place] [address]- 2496 Feb, [facility] [place] [facility] [address] [id number] [place] [address]- 3869 Feb, [facility] [place] [facility] [address] [id number] [place] [address]- 6377 Feb, [facility] [place] [facility] [address] [id number] [place] [address]- 9106 Feb, [facility] [place] [facility] [address] [id number] [place] [address]- 9735 Feb, [facility] [place] [facility] [address] [id number] [place] [address]- 1765 Feb, [facility] [place] [facility] [address] [id number] [place] [address]- 7964 Feb, [facility] [place] [facility] [address] [id number] [place] [address]- 4126 Feb, [facility] [place] [facility] [address] [id number] [place] [address]- 4601 Feb, [facility] [place] [facility] [address] [id number] [place] [address]- 0675 Jan, [facility] [place] [facility] [address] [id number] [place] [address]- 5107 Jan, [facility] [place] [facility] [address] [id number] [place] [address]- 7846 Jan, [facility] [place] [facility] [address] [id number] [place] [address]- 6599 Jan, [facility] [place] [facility] [address] [id number] [place] [address]- 0572 Jan, [facility] [place] [facility] [address] [id number] [place] 6954 Jan, [facility] [address] [id number] [place] [address]- 3206 Jan, [facility] [address] [id number] [place] 3486 Jan, [facility] [address] [id number] [place] [address]- 8376 Jan, [facility] [place] [facility] [address] [id number] [place] [address]- 6605 Jan, [facility] [address] [id number] [place] 9731 Jan, [facility] [address] [id number] [place] [address]- 4234 Jan, [facility] [address] [id number] [place] [address]- 9190 Jan, [facility] [address] [id number] [place] [address]- 3624 Jan, [facility] [address] [id number] [place] [address]- 5831 Jan, [facility] [address] [id number] [place] [address]- 8831 Jan, [facility] [address] [id number] [place] [id number] Jan, [facility] [place] [facility] [address] [id number] [place] [address] Jan, [facility] [place] [facility] [address] [id number] [place] [address] Jan, [facility] [place] [facility] [address] [id number] [place] [address] Jan, [facility] [place] [facility] [address] [id number] [place] [address] Dec, [facility] [place] [facility] [address] [id number] [place] [address] Dec, [facility] [place] [facility] [address] [id number] [place] [address] Dec, [facility] [place] [facility] [address] [id number] [place] [address] Dec, [facility] [place] [facility] [address] [id number] [place] [address] Dec, [facility] [place] [facility] [address] [id number] [place] [address] Dec, [facility] [place] [facility] [address] [id number] [place] [address] Dec, [facility] [place] [facility] [address] [id number] [place] [address] Nov, [facility] [place] [facility] [address] [id number] [place] [address] Nov, [facility] [place] [facility] [address] [id number] [place] [address] Nov, [facility] [place] [facility] [address] [id number] [place] [address] Nov, [facility] [place] [facility] [address] [id number] [place] [address] Nov, [facility] [place] [facility] [address] [id number] [place] [address] Nov, [facility] [place] [facility] [address] [id number] [place] [address] Nov, [facility] [place] [facility] [address] [id number] [place] [address] Nov, [facility] [place] [facility] [address] [id number] [place] [address] Nov, [facility] [place] [facility] [address] [id number] [place] [address] 13 Nov, 2013 [facility] [place] [facility] [address] [id number] [place] [address] 29 Oct, 2013 [facility] [place] [facility] [address] [id number] [place] [address] 29 Oct, 2013 [facility] [place] [facility] [address] [id number] [place] [address] 15 Oct, 2013 [facility] [place] [facility] [address] [id number] [place] [address] 15 Oct, 2013 [facility] [place] [facility] [address] [id number] [place] [address] 15 Oct, 2013 [facility] [place] [facility] [address] [id number] [place] [address] 15 Oct, 2013 [facility] [place] [facility] [address] [id number] [place] [address] 10 Oct, 2013 [facility] [place] [facility] [address] [id number] [place] [address] 10 Oct, 2013 [facility] [place] [facility] [address] [id number] [place] [address] 02 Oct, 2013 [facility] [place] [facility] [address] [id number] [place] [address] 02 Oct, 2013 [facility] [place] [facility] [address] [id number] [place] [address] Sep, [facility] [place] [facility] [address] [id number] [place] [address] Sep, [facility] [place] [facility] [address] [id number] [place] [address] Sep, [facility] [place] [facility] [address] [id number] [place] [address] Sep, [facility] [place] [facility] [address] [id number] [place] [address] Sep, [facility] [place] [facility] [address] [id number] [place] [address] Sep, [facility] [place] [facility] [address] [id number] [place] [address] Sep, [facility] [place] [facility] [address] [id number] [place] [address] Sep, [facility] [place] [facility] [address] [id number] [place] [address] Sep, [facility] [place] [facility] [address] [id number] [place] [address] Sep, [facility] [place] [facility] [address] [id number] [place] [address] Aug, [facility] [place] [facility] [address] [id number] [place] [address] Aug, [facility] [place] [facility] [address] [id number] [place] [address] Aug, [facility] [place] [facility] [address] [id number] [place] [address] Aug, [facility] [place] [facility] [address] [id number] [place] [address] Aug, [facility] [place] [facility] [address] [id number] [place] [address] Aug, [facility] [place] [facility] [address] [id number] [place] [address] Aug, [facility] [place] [facility] [address] [id number] [place] [address] Aug, [facility] [place] [facility] [address] [id number] [place] [address] Aug, [facility] [place] [facility] [address] [id number] [place] [address] Aug, [facility] [place] [facility] [address] [id number] [place] [address] Aug, [facility] [place] [facility] [address] [id number] [place] [address] Aug, [facility] [place] [facility] [address] [id number] [place] [address] 8236 Jul, [facility] [place] [facility] [address] [id number] [place] [address] 2332 Jul, [facility] [place] [facility] [address] [id number] [place] [address] 9[address] Jul, [facility] [place] [facility] [address] [id number] [place] [address] 6439 Jul, [facility] [place] [facility] [address] [id number] [place] [address] 0540 Jul, [facility] [place] [facility] [address] [id number] [place] [address] 5232 Jul, [facility] [place] [facility] [address] [id number] [place] [address]- 4748 17 Jul, 2013 [facility] [place] [facility] [address] [id number] [place] [address]- 7375 16 Jul, 2013 [facility] [place] [facility] [address] [id number] [place] [address]- 2883 16 Jul, 2013 [facility] [place] [facility] [address] [id number] [place] [address]- 9458 14 Jul, 2013 [facility] [place] [facility] [address] [id number] [address] 14 Jul, 2013 [facility] [place] [facility] [address] [id number] [place] [address]- 9696 13 Jul, 2013 [facility] [place] [facility] [address] [id number] [place] [address]- 1693 13 Jul, 2013 [facility] [place] [facility] [address] [id number] [place] [address]- 1133 06 Jul, 2013 [facility] [place] [facility] [address] [id number], [place] [address] Jul, [facility] [place] [facility] [address] [id number] [place] [address]- 9428 Jul, [facility] [place] [facility] [address] [id number] [place] [address]- 6833 Jul, [facility] [place] [facility] [address] [id number] [place] [address]- 4577 June, [facility] [place] [facility] [address] [id number] [place] [address]- 4192 June, [facility] [place] [facility] [address] [id number] [place] [address]- 1375 June, [facility] [place] [facility] [address] [id number] [place] [address]- 2917 June, [facility] [place] [facility] [address] [id number] [place] [address]- 7571 June, [facility] [place] [facility] [address] [id number] [place] [address]- 1388 June, [facility] [place] [facility] [address] [id number] [place] [address]- 0473 June, [facility] [place] [facility] [address] [id number] [place] [address]- 8399 June, [facility] [place] [facility] [address] [id number] [place] [address]- 9011 June, [facility] [place] [facility] [address] [id number] [place] [address]- 9361 June, [facility] [place] [facility] [address] [id number] [place] [address]- 5419 June, [facility] [place] [facility] [address] [id number] [place] [address]- 9597 June, [facility] [place] [facility] [address] [id number] [place] [address]- 2450 June, [facility] [place] [facility] [address] [id number] [place] [address] June, [facility] [place] [facility] [address] [id number] [place] [address]- 7005 June, [facility] [place] [facility] [address] [id number] [place] [address]- 4[address] June, [facility] [place] [facility] [address] [id number] [place] [address]- [address]64 June, [facility] [place] [facility] [address] [id number] [place] [address] 5486 June, [facility] [place] [facility] [address] [id number] [place] [address]- 1427 June, [facility] [place] [facility] [address] [id number] [place] [address] 2133 June, [facility] [place] [facility] [address] [id number] [place] [address]- 4302 June, [facility] [place] [facility] [address] [id number] [place] [address]- 9988 June, [facility] [place] [facility] [address] [id number] [place] [address]- 5179 June, [facility] [place] [facility] [address] [id number] [place] [address]- 5401 June, [facility] [place] [facility] [address] [id number] [place] [address]- 0171 June, [facility] [place] [facility] [address] [id number] [place] [address] June, [facility] [place] [facility] [address] [id number] [place] [address] June, [facility] [place] [facility] [address] [id number] [place] [address]- 8995 June, [facility] [place] [facility] [address] [id number] [place] [address]- 0358 June, [facility] [place] [facility] [address] [id number] [place] [address]- 1712 June, [facility] [place] [facility] [address] [id number] [place] [address]- 7876 June, [facility] [place] [facility] [address] [id number] [place] [address]- 9367 June, [facility] [place] [facility] [address] [id number] [place] [address]- 2792 May, [facility] [place] [facility] [address] [id number] [place] [address]- 9852 May, [facility] [place] [facility] [address] [id number] [place] [address]- 4432 May, [facility] [place] [facility] [address] [id number] [place] [address]- 4707 May, [facility] [place] [facility] [address] [id number] [place] [address]- 5963 May, [facility] [place] [facility] [address] [id number] [place] [address]- 3920 May, [facility] [place] [facility] [address] [id number] [place] [address]- 0298 May, [facility] [place] [facility] [address] [id number] [place] [address]- 9072 May, [facility] [place] [facility] [address] [id number] [place] [address]- 2783 May, [facility] [place] [facility] [address] [id number] [place] [address]- 1641 May, [facility] [place] [facility] [address] [id number] [place] [address]- 0658 May, [facility] [place] [facility] [address] [id number] [place] [address]- 9097 May, [facility] [place] [facility] [address] [id number] [place] [address]- 7922 17 May, 2013 [facility] [place] [facility] [address] [id number] [place] [address] May, [facility] [place] [facility] [address] [id number] [place] [address]646 May, [facility] [place] [facility] [address] [id number] [place] [address]- 2576 Apr, [facility] [place] [facility] [address] [id number] [place] [address]- 2096 Apr, [facility] [place] [facility] [address] [id number] [place] [address]- 2901 Apr, [facility] [place] [facility] [address] [facility] [id number] [place] [address]- 8489 Apr, [facility] [place] [facility] [address] [facility] [id number] [place] [address]- 4109 Apr, [facility] [place] [facility] [address] [facility] [id number] [place] [address]- 9570 Apr, [facility] [place] [facility] [address] [id number] [place] [address]- 7323 Mar, [facility] [place] [facility] [address] [facility] [id number] [place] [address]- 7694 Mar, [facility] [place] [facility] [address] [facility] [id number] [place] [address]- 4126 Mar, [facility] [place] [facility] [address] [facility] [id number] [place] [address]- 7872 Mar, [facility] [place] [facility] [address] [id number] [place] 9535 Mar, [facility] [place] [facility] [address] [facility] [id number] [place] [address]- 8724 Mar, [facility] [place] [facility] [address] [facility] [id number] [place] 8740 Mar, [facility] [place] [facility] [address] [id number] [place] [address]- 1914 Mar, [facility] [place] [facility] [address] [id number] [place] [address]- 4397 Feb, [facility] [place] [facility] [address] [id number] [place] [address]- 9208 Feb, [facility] [place] [facility] [address] [id number] [place] [address]- 7797 Feb, [facility] [place] [facility] [address] [id number] [place] [address]- 2615 Feb, [facility] [place] [facility] [address] [id number] [place] [address]- 1191 Feb, [facility] [place] [facility] [address] [id number] [place] [address]- 9994 Feb, [facility] [place] [facility] [address] [id number] [place] [address]- 0417 Feb, [facility] [place] [facility] [address] [id number] [place] [address]- 6339 Feb, [facility] [place] [facility] [address] [id number] [place] [address]- 8872 Feb, [facility] [place] [facility] [address] [id number] [address]- 9495 Feb, [facility] [place] [facility] [address] [id number], [place] [address]- 7821 Jan, [facility] [place] [facility] [address] [id number] [place] [address]- 0152 Jan, [facility] [place] [facility] [address] [id number] [place] [address]- 2621 Jan, [facility] [place] [facility] [address] [id number] [place] [address]- 3015 Jan, [facility] [place] [facility] [address] [id number] [place] [address]- 9433 02 Jan, 2013 [facility] [address] [id number] [place] [address]- 7124 02 Jan, 2013 [facility] [place] [facility] [address] [id number] [place] 9525 02 Jan, 2013 [facility] [place] [facility] [address] [id number] [place] [address]- 0136 02 Jan, 2013 [facility] [place] [facility] [address] [id number] [place] [address]- 1112 14 Dec, 2012 [facility] [place] [facility] [address] [id number] [place] [address]- 5618 14 Dec, 2012 [facility] [place] [facility] [address] [id number] [place] [address]- 5527 Dec, [facility] [place] [facility] [address] [facility] [id number] [place] [address]- 5675 Dec, [facility] [place] [facility] [address] [id number] [place] [address]- 9361 Dec, [facility] [place] [facility] [address] [id number] [place] [address]- 0293 Dec, [facility] [place] [facility] [address] [facility] [id number] [place] [address]- 1486 Dec, [facility] [place] [facility] [address] [id number] [place] [address]- 5182 Dec, [facility] [place] [facility] [address] [id number], [place] [address]- 2117 Nov, [facility] [place] [facility] [address] [id number] [place] [address]- 6289 Nov, [facility] [place] [facility] [address] [facility] [id number] [place] [address]- 0389 Nov, [facility] [place] [facility] [address] [id number], [place] [address]- 8132 14 Nov, 2012 [facility] [place] [facility] [address] [id number] [place] [address]- 0571 Nov, [facility] [place] [facility] [address] [id number] [place] [address]- 9000 Nov, [facility] [place] [facility] [address] [id number] [place] [address]- 1077 Nov, [facility] [place] [facility] [address] [id number] [place] [address]- 1034 Oct, [facility] [place] [facility] [address] [id number] [place] [address]- 4417 Oct, [facility] [place] [facility] [address] [id number] [place] [address]- 5495 Oct, [facility] [place] [facility] [address] [id number] [place] [address]- 0030 Sep, [facility] [place] [facility] [address] [id number] [place] [address]- 7166 Sep, [facility] [place] [facility] [address] [id number] [place] [address]- 8138 Sep, [facility] [place] [facility] [address] [id number] [place] [address]- 0105 Sep, [facility] [place] [facility] [address] [id number] [place] [address]- 6229 Aug, [facility] [place] [facility] [address] [id number] [place] [address]- 0838 Aug, [facility] [place] [facility] [address] [id number] [place] [address]- 6595 Aug, [facility] [place] [facility] [address] [id number] [place] [address]- 0355 15 Aug, 2012 [facility] [place] [facility] [address] [id number] [place] [address]- 1377 Aug, [facility] [place] [facility] [address] [id number] [place] [address]- 4499 24 Jul, 2012 [facility] [address] [id number] [place] [address]- 4119 Jul, [facility] [place] [facility] [address] [id number] [place] [address]- 5169 Jul, [facility] [place] [facility] [address] [id number] [place] [address]- 2597 Jul, [facility] [place] [facility] [address] [id number] [place] [address]- 2313 Jul, [facility] [place] [facility] [address] [id number] [place] [address]- 5469 June, [facility] [place] [facility] [address] [id number] [place] [address]- 9815 June, [facility] [place] [facility] [address] [id number] [place] [address]- 6845 June, [facility] [place] [facility] [address] [id number] [place] [address]- 7202 June, [facility] [place] [facility] [address] [id number] [place] [address]- 2592 June, [facility] [place] [facility] [address] [id number] [place] [address]- 9524 29 May, 2012 [facility] [place] [facility] [address] [id number] [place] [address]- 0783 May, [facility] [place] [facility] [address] [id number] [place] [address]- 8390 18 May, 2012 [facility] [place] [facility] [address] [id number] [place] [address]- 6303 17 May, 2012 [facility] [place] [facility] [address] [id number] [place] [address]- 1980 16 May, 2012 [facility] [place] [facility] [address] [id number] [place] [address]- 0642 10 May, 2012 [facility] [place] [facility] [address] [id number] [place] [address]- 3327 04 May, 2012 [facility] [address] [id number] [place] [address]- 5652 Apr, [facility] [place] [facility] [address] [id number] [place] [address]- 9916 Apr, [facility] [address] [id number] [place] [address]- 5872 Apr, [facility] [place] [facility] [address] [id number] [place] [address]- 4412 Mar, [facility] [address] [id number] [place] [address]- 6711 Mar, [facility] [address] [id number] [place] [address]- 2360 Mar, [facility] [address] [id number] [place] [address]- 7729 Mar, [facility] [address] [id number] [place] [address]- 0057 Mar, [facility] [address] [facility] [id number] [place] [address]- 3191 Mar, [facility] [address] [facility] [id number] [place] [address]- 7389 Mar, [facility] [place] [facility] [address] [id number] [place] [address]- 1239 Mar, [facility] [place] [facility] [address] [id number] [place] [address]- 8613 Feb, [facility] [place] [facility] [address] [id number] [place] [address]- 4140 Feb, [facility] [place] [facility] [address] [id number] [place] [address]- 5100 Feb, [facility] [place] [facility] [address] [id number] [place] [address]- 2546 26 Feb, 2012 [facility] [place] [facility] [address] [id number] [place] [address]- 3633 18 Feb, 2012 [facility] [place] [facility] [address] [id number] [place] [address]- 4036 15 Feb, 2012 [facility] [place] [facility] [address] [id number] [place] [address]- 0656 14 Feb, 2012 [facility] [place] [facility] [address] [id number] [place] [address]- 0723 27 Jan, 2012 [facility] [place] [facility] [address] [id number] [place] [address]- 5041 27 Jan, 2012 [facility] [place] [facility] [address] [id number] [place] [address]- 9136 27 Jan, 2012 [facility] [place] [facility] [address] [id number] [place] [address]- 0991 27 Jan, 2012 [facility] [place] [facility] [address] [id number] [place] [address]- 7475 27 Jan, 2012 [facility] [place] [facility] [address] [id number] [place] [address]- 6621 27 Jan, 2012 [facility] [place] [facility] [address] [id number] [place] [address]- 5617 Jan, [facility] [place] [facility] [address] [id number] [place] [address]- 0863 26 Jan, 2012 [facility] [place] [facility] [address] [id number] [place] [address]- 7296 13 Jan, 2012 [facility] [place] [facility] [address] [id number] [place] [address] 2546 13 Jan, 2012 [facility] [place] [facility] [address] [id number] [place] [address]- 2540 Jan, [facility] [place] [facility] [address] [id number] [place] [address]- 3722 11 Jan, 2012 [facility] [place] [facility] [address] [id number] [place] [address]- 5251 10 Jan, 2012 [facility] [place] [facility] [address] [id number] [place] [address]- 6622 Jan, [facility] [place] [facility] [address] [id number] [place] [address]- 6156 Dec, [facility] [place] [facility] [address] [id number] [place] [address]- 9162 Dec, [facility] [place] [facility] [address] [id number] [place] [address]- 6167 Dec, [facility] [place] [facility] [address] [id number] [place] [address]- 2767 Dec, [facility] [place] [facility] [address] [id number] [place] [address]- 8192 Dec, [facility] [place] [facility] [address] [id number] [place] [address]- 3705 Dec, [facility] [place] [facility] [address] [id number] [place] [address]- 9042 Dec, [facility] [place] [facility] [address] [id number] [place] [address]- 4445 Dec, [facility] [place] [facility] [address] [id number] [place] [address]- 4967 Dec, [facility] [place] [facility] [address] [id number] [place] [address]- 1652 Dec, [facility] [place] [facility] [address] [id number] [place] [address]- 2545 Dec, [facility] [place] [facility] [address] [id number] [place] [address]- 8477 Dec, [facility] [place] [facility] [address] [id number] [place] [address]- 4582 Dec, [facility] [place] [facility] [address] [id number] [place] [address]- 2917 Dec, [facility] [place] [facility] [address] [id number] [place] [address]- 7953 Dec, [facility] [place] [facility] [address] [id number] [place] [address]- 0093 Dec, [facility] [place] [facility] [address] [id number] [place] [address] Dec, [facility] [place] [facility] [address] [id number] [place] [address] Dec, [facility] [place] [facility] [address] [id number] [place] [address] Dec, [facility] [place] [facility] [address] [id number] [place] [address] Dec, [facility] [place] [facility] [address] [id number] [place] [address] Nov, [facility] [place] [facility] [address] [id number], [place] [address] Nov, [facility] [place] [facility] [address] [id number] [place] [address] 30 Nov, 2011 [facility] [place] [facility] [address] [facility] [id number], [place] [address]- [address] Nov, [facility] [place] [facility] [address] [facility] [id number], [place] [address] Nov, [facility] [place] [facility] [address] [id number], [place] [address] 24 Nov, 2011 [facility] [place] [facility] [address] [id number], [place] [address] 15 Nov, 2011 [facility] [place] [facility] [address] [id number], [place] [address] 15 Nov, 2011 [facility] [place] [facility] [address] [facility] [id number][place] [address] 47[address] Nov, [facility] [place] [facility] [address] [id number], [place] [address] Nov, [facility] [place] [facility] [address] [id number] [place] [address] 3056 Nov, [facility] [place] [facility] [address] [id number] [place] [address] 3956 Nov, [facility] [place] [facility] [address] [id number] [place] [address]- 25[address] Nov, [facility] [place] [facility] [address] [id number] [place] [address] 30 Oct, 2011 [facility] [place] [facility] [address] [id number] [place] [address], [place] [address] 27 Oct, 2011 [facility] [place] [facility] [address] [id number] [place] [address]- 8899 24 Oct, 2011 [facility] [place] [facility] [address] [id number] [place] [address] 8553 Oct, [facility] [place] [facility] [address] [id number] [place] [address]- [address]151 Oct, [facility] [place] [facility] [address] [id number] [place] [address]- [address]208 Oct, [facility] [place] [facility] [address] [id number] [place] [address] 7477 Sep, [facility] [place] [facility] [address] [id number] [place] [address] 279[address] Sep, [facility] [place] [facility] [address] [id number] [place] [address]- 4978 Sep, [facility] [place] [facility] [address] [id number] [place] [address] 6685 Sep, [facility] [place] [facility] [address] [facility] [id number] [place] [address]114 Aug, [facility] [place] [facility] [address] [facility] [id number] [place] [address] 5679 Aug, [facility] [place] [facility] [address] [id number] [place] [address] 1326 Aug, [facility] [place] [facility] [address] [id number] [place] [address] 9264 Jul, [facility] [place] [facility] [address] [id number] [place] [address] Jul, [facility] [place] [facility] [address] [id number] [place] [address] 2846 Jul, [facility] [place] [facility] [address] [id number] [place] [address] Jul, [facility] [place] [facility] [address] [id number] [place] [address] 275[address] June, [facility] [place] [facility] [address] [id number] [place] [address] 1716 June, [facility] [place] [facility] [address] [id number] [place] [address] 5145 June, [facility] [place] [facility] [address] [id number] [place] [address] June, [facility] [place] [facility] [address] [id number] [place] [address]- 1627 June, [facility] [place] [facility] [address] [id number] [place] [address] June, [facility] [place] [facility] [address] [id number] [place] [address]- 9306 May, [facility] [place] [facility] [address] [id number] [place] [address]- 4[address] May, [facility] [place] [facility] [address] [id number] [place] [address]- 1736 May, [facility] [place] [facility] [address] [id number] [place] [address]- 2413 May, [facility] [place] [facility] [address] [id number] [place] [address]- 6834 May, [facility] [place] [facility] [address] [id number] [place] [address]- 9[address] May, [facility] [place] [facility] [address] [id number] [place] [address]- 5538 May, [facility] [place] [facility] [address] [id number] [place] [address] May, [facility] [place] [facility] [address] [id number] [place] [address]- 6306 May, [facility] [place] [facility] [address] [id number] [place] [address]- 3349 Apr, [facility] [place] [facility] [address] [id number] [place] [address] 7921 Mar, [facility] [place] [facility] [address] [id number] [place] [address]- 3777 Mar, [facility] [place] [facility] [address] [id number] [place] [address]- 2770 Mar, [facility] [place] [facility] [address] [id number] [place] [address] 9197 Mar, [facility] [place] [facility] [address] [id number] [place] [address] 0396 Feb, [facility] [place] [facility] [address] [id number] [place] [address] 2915 Feb, [facility] [place] [facility] [address] [id number] [place] [address] 7779 Feb, [facility] [place] [facility] [address] [id number] [place] [address]- 8876 Jan, [facility] [place] [facility] [address] [id number] [place] [address]- 6616 Jan, [facility] [place] [facility] [address] [id number] [place] [address]- 8047 14 Jan, 2011 [facility] [place] [facility] [address] [id number] [place] [address]- 7557 29 Dec, 2010 [facility] [place] [facility] [address] [id number] [place] [address]- 2954 28 Dec, 2010 [facility] [place] [facility] [address] [id number] [place] [address]- 4225 16 Dec, 2010 [facility] [place] [facility] [address] [id number] [place] [address], [place] [address]- [address]13 15 Dec, 2010 [facility] [place] [facility] [address] [id number] [place] [address]- 6846 31 Nov, 2010 [facility] [place] [facility] [address] [id number] [place] [address], [place] [address]- 2507 31 Nov, 2010 [facility] [place] [facility] [address] [id number] [place] [address]- 5933 19 Nov, 2010 [facility] [place] [facility] [address] [id number] [place] [address], [place] [address]- 2807 18 Nov, 2010 [facility] [place] [facility] [address] [id number] [place] [address]- 7645 13 Oct, 2010 [facility] [place] [facility] [address] [id number] [place] [address]- 2189 20 Jul, 2010 [facility] [place] [facility] [address] [facility] [id number] [place] [address]- 8656 13 Jan, 2010 [facility] [place] [facility] [address] [id number] [place] [address]- 2120 30 Dec, 2009 [facility] [place] [facility] [address] [id number] [place] [address]- 3973 Dec, [facility] [place] [facility] [address] [id number] [place] [address]- 1138 Dec, [facility] [place] [facility] [address] [id number] [place] [address]- 6456 Dec, [facility] [place] [facility] [address] [id number] [place] [address]- 1725 Dec, [facility] [place] [facility] [address] [id number] [place] [address]- 3369 Dec, [facility] [place] [facility] [address] [id number] [place] [address]- 5216 Nov, [facility] [facility] [facility] [address] [id number] [place] [address] Nov, [facility] [place] [facility] [address] [id number] [place] [address] Nov, [facility] [place] [facility] [address] [id number] [place] [address] Apr, [facility] [place] [facility] [address] [id number] [place] [address] Apr, [facility] [place] [facility] [address] [id number] [place] [address] Jan, [facility] [place] [facility] [address] [id number], [place] [address] Jan, [facility] [place] [facility] [address] [id number] [place] [address] Jan, [facility] [place] [facility] [address] [facility] [id number], [place] [address] Jan, [facility] [place] [facility] [address] [facility] [id number], [place] [address] 14 Jan, 2009 [facility] [place] [facility] [address] [id number], [place] [address] Jan, [facility] [place] [facility] [address] [id number], [place] [address] 30 Dec, 2008 [facility] [place] [facility] [address] [id number], [place] [address] Dec, [facility] [place] [facility] [address] [facility] [id number], [place] [address] 18 Dec, 2008 [facility] [place] [facility] [address] [id number], [place] [address] 11 Dec, 2008 [facility] [id number] [address] Dec, [facility] [id number], [place] [address] Dec, [facility] [id number], [place] [address] Nov, [facility] [id number], [place] [address] Nov, [facility] [id number] [place] [address] Aug, [facility] [id number], [place] [address] Jul, [facility] [id number], [place] [address] June, [facility] [id number], [place] [address] Apr, IMMUNIZATIONS No Known Immunizations SOCIAL HISTORY [...] of loosened hardware/hip replacement ( [facility] in [place]) 09/2008 Hospitalization History in pt rehab s/p left hip repair 09/2008-11/2008 Hospitalization History [facility] 07/2009
--- NOTE | 2017-10-26 13:55 | ED General ---
General Chief Complaint: Psych/Social Disorder Stated Complaint: SOB Source of Information: Patient, EMS Exam Limitations: No Limitations History of Present Illness Date Seen by Provider: Oct 26, 2017 Time Seen by Provider: 13:35 Initial Comments Here with report of sore in the top of her mouth. No shortness of breath. EMS was summoned after she talked with the neighbor who was worried about her and they called EMS. EMS transported here. Patient was seen for very similar complaint involving dry mouth in July. No obvious sores or any other findings at that time and it appears the same today. She was comforted by that. She does admit to being anxious. She believes she may have been out of her meds for the last 2 or 3 days. Her granddaughter typically helps her out with that. She is trying to get ahold of her now. Timing/Duration: 1 Day Severity: Mild Associated Systoms: No Chest Pain, No Cough, No Fever/Chills; Shortness of Air Allergies and Home Medications Allergies Coded Allergies: No Known Drug Allergies (Unverified , 04/26/09) Home Medications Buspirone Hcl 5 Mg Tablet, 5 MG PO BID, (Reported) Clonazepam 0.5 Mg Tablet, 1 EACH PO BID, (Reported) Duloxetine Hcl 60 Mg Capsule.dr, 60 MG PO DAILY, (Reported) Famotidine 20 Mg Tablet, 20 MG PO BID, (Reported) Ferrous Sulfate 325 Mg Tablet, 325 MG PO HS, (Reported) Furosemide 40 Mg Tablet, 20 MG PO DAILY We will cut the 40mg tabs in half while you still have this prescription Prescribed by: WENDY DUNBAR on 04/12/14 1433 Furosemide 20 Mg Tablet, 20 MG PO UD 1 po qAM Prescribed by: DEANA FUNEZ on 12/27/15 1854 Lorazepam 1 Mg Tab, 1 EACH PO DAILY PRN for ANXIETY, (Reported) Meloxicam 7.5 Mg Tablet, 1 EACH PO DAILY, (Reported) Prednisone 20 Mg Tab, 20 MG PO BID Prescribed by: DEANA FUNEZ on 06/07/15 1452 Trazodone Hcl 100 Mg Tablet, 100 MG PO HS, (Reported) Patient Home Medication List Home Medication List Reviewed: Yes Review of Systems Review of Systems Constitutional: see HPI; No chills, No fever EENTM: mouth pain; No throat pain Respiratory: see HPI, short of breath (report shortness of breath but speaking almost continuously without any breathing difficulty.) Psychiatric/Neurological: See HPI, Anxiety Past Zbnovyq-Vupuuy-Nqkprp Hx Past Med/Social Hx: Reviewed Nursing Past Med/Soc Hx Patient Social History Alcohol Use: Denies Use Recreational Drug Use: No 2nd Hand Smoke Exposure: No Recent Hopitalizations: No Immunizations Up To Date Tetanus Booster (TDap): Unknown Date of Influenza Vaccine: Nov 24, 2014 Seasonal Allergies Seasonal Allergies: No Past Medical History Surgeries: Yes Appendectomy, Orthopedic Respiratory: No Cardiac: Yes (chronic pedal edema) Chronic Edema/Swelling Neurological: Yes (dementia) Dementia Reproductive Disorders: No Sexually Transmitted Disease: No Bladder Infection Gastrointestinal: Yes Diverticulosis Musculoskeletal: Yes (CHRONIC GENERALIZED PAIN, ESPECIALLY HIPS--NARCOTIC DEPENDENCY AND ABUSE. ) Arthritis Endocrine: No Cancer: No (per pt "brain tumor" unknown ) Psychosocial: Yes Anxiety, Depression Integumentary: No Blood Disorders: No Adverse Reaction/Blood Tranf: No Family Medical History Reviewed Nursing Family Hx Patient reports no known family medical history. No Pertinent Family Hx Physical Exam Vital Signs Capillary Refill : Height, Weight, BMI Height: 5'3.00" Weight: 150lbs. 6.0oz. 68.720481js; 23.91 BMI Method:Estimated General Appearance: No Apparent Distress, WD/WN, Anxious HEENT: PERRL/EOMI, Pharynx Normal, Other (no sores within the mouth noted on exam. Swallowing and talking without difficulty.) Neck: Non Tender, Supple Respiratory: Lungs Clear, Normal Breath Sounds Cardiovascular: No Murmur, Tachycardia Neurologic/Psychiatric: Alert, Normal Mood/Affect Skin: Normal Color, Warm/Dry Progress/Results/Core Measures Suspected Sepsis SIRS Temperature: Pulse: Respiratory Rate: Blood Pressure / Mean: Results/Orders My Orders Orders - CESAR KNIGHT MD Alprazolam Tablet (Xanax Tablet) (10/26/17 14:00) Medications Given in ED Current Medications Medications Dose Ordered Sig/Kristi Route Start Time Stop Time Status Last Admin Dose Admin Alprazolam 0.25 mg ONCE ONCE PO 10/26/17 14:00 10/26/17 14:01 DC 10/26/17 13:54 0.25 MG Vital Signs/I&O Capillary Refill : Progress Note : Progress Note Seen and evaluated. EKG done due to tachycardia. Patient has tachycardia historically on previous evaluations. Xanax 0.25 mg by mouth given. Discharged home with return precautions. Patient verbalize understanding instructions and agreement with plan. ECG Initial ECG Impression Date: Oct 26, 2017 Initial ECG Impression Time: 13:35 Initial ECG Rate: 123 Initial ECG Rhythm: S.Tach Initial ECG Comparisson: Unchanged Comment Sinus tachycardia with left atrial abdomen bilaterally. Similar to previous of 08/04/17. No evidence of ST elevation AK. Interpreted by me. Departure Impression Primary Impression: Mouth pain Additional Impression: Anxiety Disposition: 01 HOME, SELF-CARE Condition: Improved Departure-Patient Inst. Decision time for Depature: 13:59 Referrals: BABAK TRIANA MD (PCP/Family) Primary Care Physician Patient Instructions: Anxiety, Adult (DC), Mouth Sores (DC) Add. Discharge Instructions: All discharge instructions reviewed with patient and/or family. Voiced understanding. Continue home medications as previously prescribed. Follow-up with your Dr. in 2-3 days for recheck and further evaluation. Return for worse pain, breathing problems, weakness or other concerns as needed. CESAR KNIGHT MD Oct 26, 2017 13:55
--- OUTSIDE RECORDS SUMMARY | 2017-10-26 13:55 | XMS REPORT ---
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 Active 097457977 Problem Panic attacks F41.0 Active 112269330 Problem Seasonal allergic rhinitis due to other allergic trigger J30.89 Active 829401636 Problem Dementia without behavioral disturbance, unspecified dementia type F03.90 Active 51900220 Problem 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
--- OUTSIDE RECORDS SUMMARY | 2017-10-26 13:55 | XMS REPORT ---
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 Mechanic Name Role Phone KONGPROMISE KIMHANY Unavailable PROBLEMS Type Condition ICD9-CM Code CIF26-SI Code Onset Dates Condition Status SNOMED Code Problem Generalized anxiety disorder F41.1 Active 613282308 Problem Seasonal allergic rhinitis due to other allergic trigger J30.89 Active 508331120 Problem Anxiety disorder, unspecified F41.9 Active 251007766 Problem 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 Active 878210191 Problem Meningioma D32.9 Active 397009848 Problem Generalized osteoarthritis M15.9 Active 590065738 Problem Dementia without behavioral disturbance, unspecified dementia type F03.90 Active 52714801 Problem Debility R53.81 Active 34169683 Problem At risk for falls Z91.81 Active 729013596 Problem Other chronic pain G89.29 Active 09638408 Problem Panic attacks F41.0 Active 509391169 Problem Acute drug withdrawal syndrome without complication F19.230 Active 765983642 Problem Anxiety F41.9 Active 69966147 ALLERGIES No Information ENCOUNTERS Encounter Location Date Diagnosis [facility] [id number] [place] [address] 57545- 7101 Jul, 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 ; Generalized osteoarthritis M15.9 ; Other chronic pain G89.29 ; At risk for falls Z91.81 and Debility R53.81 [facility] [id number] [address] 69[address] Jul, [facility] [id number] [place] [address] 88503- 1674 June, Dementia without behavioral disturbance, unspecified dementia type F03.90 [facility] [id number] [place] [address] 88833- 0225 June, [facility] [id number] [place] [address] 34371- 6599 June, [facility] [id number] [place] [address] 14593- 0144 June, [facility] [id number] [place] [address] 57076- 2688 June, Dementia without behavioral disturbance, unspecified dementia type F03.90 and Anxiety F41.9 [facility] [id number] [place] [address] 19262- 5982 May, [facility] [address] 90670- 8885 May, [facility] [id number] [place] [address] 50584 -7562 May, Anxiety F41.9 ; Acute drug withdrawal syndrome without complication F19.230 and Abdominal pain, unspecified abdominal location R10.9 [facility] [id number] [place] [address] 53565- 8707 May, Panic attacks F41.0 [facility] [id number] [place] [address] 82910- 7322 May, Other chronic pain G89.29 and Generalized anxiety disorder F41.1 [facility] [id number] [place] [address] 79653- 3875 Apr, Housing problems Z59.9 and Panic attacks F41.0 [facility] [id number] [place] [address] 61249- 8432 Mar, Panic attacks F41.0 [facility] [id number] [place] [address] 95396- 4152 Feb, [facility] [id number] [place] [address] 44812- 6869 Feb, Panic attacks F41.0 [facility] [id number] [place] [address]- 5841 Feb, Pain in right knee M25.561 ; Pain in left knee M25.562 ; Other chronic pain G89.29 ; Housing problems Z59.9 ; Dementia without behavioral disturbance, unspecified dementia type F03.90 ; Generalized anxiety disorder F41.1 and Advance directive declined by patient Z78.9 [facility] [id number] [place] [address] 11781- 8733 Jan, Panic attacks F41.0 [facility] [id number] [place] [address] 13066- 4791 Jan, Panic attacks F41.0 [facility] [address] 76230- 6472 Dec, Panic attacks F41.0 [facility] [id number] [place] [address] 95612 -2961 Nov, Allergic contact dermatitis due to cosmetics L23.2 [facility] [id number] [place] [address] 72596- 1076 Nov, Panic attacks F41.0 [facility] [address] 51664- 9650 Oct, Panic attacks F41.0 [facility] [id number] [place] [address] 38221- 6040 Sep, Panic attacks F41.0 ; Insect bite, initial encounter W57.XXXA and 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 [facility] [id number] [place] [address] 44001- 4151 Sep, [facility] [address] 12743- 6910 Aug, Generalized anxiety disorder F41.1 [facility] [id number] [place] [address] 10916- 8310 Jul, [facility] [id number] [place] [address] 72615 -5186 June, Seasonal allergic rhinitis due to other allergic trigger J30.89 [facility] [id number] [place] [address] 79444- 5548 June, [facility] [id number] [place] [address] 34605- 8177 June, [facility] [id number] [place] [address] 41123 -7065 June, Dysuria R30.0 and RLQ abdominal pain R10.31 [facility] [id number] [place] [address] 49956- 4222 May, Generalized anxiety disorder F41.1 ; Generalized osteoarthritis M15.9 and Dementia without behavioral disturbance, unspecified dementia type F03.90 [facility] [id number] [place] [address] 39626- 8698 May, [facility] [id number] [place] [address] 63099- 8895 May, [facility] [id number] [place] [address] 25985- 4193 May, [facility] [id number] [place] [address] 75693- 3427 Apr, [facility] [id number] [place] [address] 99859- 0515 Apr, Generalized anxiety disorder F41.1 [facility] [id number] [place] [address] 59125- 2484 Apr, [facility] [id number] [place] [address] 54851- 5711 Apr, [facility] [id number] [place] [address] 96512- 3388 Apr, [facility] [id number] [place] [address] 74753- 3968 Apr, Generalized anxiety disorder F41.1 [facility] [address], [place] [address]- 1453 Mar, [facility] [id number] [place] [address] 42983- 8734 Mar, [facility] [id number] [place] [address] 70287- 1733 Mar, [facility] [id number] [place] [address] 31092- 1397 Mar, [facility] [id number] [place] [address] 38631- 8947 Mar, Generalized anxiety disorder F41.1 [facility] [id number] [place] [address] 85101- 9387 Feb, Anxiety disorder, unspecified F41.9 [facility] [id number] [place] [address] 84361- 2072 Feb, [facility] [id number] [place] [address] 02036- 5420 Feb, [facility] [id number] [place] [address] 31335- 8742 Feb, [facility] [address], [place] [address]8841 Feb, Urinary frequency R35.0 and Acute cystitis without hematuria N30.00 [facility] [address] [address]- 7780 Feb, [facility] [address], [place] [address]- 4849 Jan, [facility] [id number] [place] [address] 14348- 2971 Jan, [facility] [address], [place] [address]- 2671 Dec, [facility] [id number] [place] [address]- 7052 14 Dec, 2015 [facility] [address], [place] [address]- 4292 Dec, Edema, unspecified type R60.9 [facility] [address] [place] [address] 2546 Dec, [facility] [id number] [place] [address], [place] [address]- 8344 Dec, [facility] [id number] [place] [address]- 6685 30 Oct, 2015 Generalized anxiety disorder F41.1 [facility] [address] [place] [address]- 7667 20 Oct, 2015 [facility] [address] [place] [address]- 2240 16 Oct, 2015 [facility] [id number] [place] [address] 85137- 6970 15 Oct, 2015 [facility] [address] [place] [address]- 9914 Oct, [facility] [address], [place] [address]- 6303 Aug, Anxiety disorder, unspecified F41.9 [facility] [address], [place] [address]- 7661 Jul, Anxiety disorder, unspecified F41.9 [facility] [address], [place] [address]- 1650 Jul, Generalized anxiety disorder F41.1 [facility] [address] [place] [address]- 0570 Jul, [facility] [id number], [place] [address]- 2727 June, [facility] [address], [place] [address]- 1704 June, [facility] [id number] [place] [address] 22925- 2135 June, [facility] [id number] [place] [address] 62417- 0419 June, [facility] [id number] [place] [address] 46537- 2816 May, [facility] [id number] [place] [address] 09608 -8249 May, Dementia without behavioral disturbance, unspecified dementia type F03.90 and Generalized osteoarthritis M15.9 [facility] [address] 16836- 8678 May, Generalized osteoarthritis M15.9 and 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 [facility] [id number] [place] [address] 38526- 6408 Apr, [facility] [id number] [place] [address] 10929- 4567 Apr, [facility] [id number] [place] [address] 43318- 0068 Apr, [facility] [id number] [place] [address] 77815- 3543 Mar, [facility] [id number] [place] [address] 62838- 0795 Mar, [facility] [id number] [place] [address] 30257- 5926 Mar, Generalized anxiety disorder F41.1 [facility] [id number] [place] [address] 42734- 1802 Feb, Other infective acute otitis externa of right ear H60.391 [facility] [id number] [place] [address] 11134- 9346 Dec, Dysuria R30.0 ; Generalized osteoarthritis M15.9 and Gastroesophageal reflux disease, esophagitis presence not specified K21.9 [facility] [id number] [place] [address] 94142- 7604 Dec, [facility] [id number] [place] [address] 49572- 9331 Dec, Generalized anxiety disorder F41.1 ; Encounter for immunization Z23 and Dementia F03.90 [facility] [address] 31833- 7348 Nov, [facility] [id number] [place] [address] 29682- 2536 Oct, [facility] [address] 09164- 6686 Oct, 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 ; Chronic pain 338.29 ; Anxiety 300.00 and Dementia 294.20 [facility] [address] 57816- 5347 Oct, [facility] [id number] [place] [address] 60114- 5733 Aug, Generalized anxiety disorder 300.02 and Dementia 294.20 [facility] [id number] [place] [address] 59271- 0789 Aug, [facility] [id number] [place] [address] 57710- 5718 Aug, Anxiety 300.00 and Chronic pain 338.29 [facility] [id number] [place] [address] 25270- 8396 Jul, [facility] [id number] [place] [address] 45894- 9856 Jul, [facility] [id number] [place] [address] 19433- 3949 June, [facility] [id number] [place] [address] 35689- 7720 June, Anxiety, generalized 300.02 ; Dementia 294.20 and No condition on [place] II V71.09 [facility] [place] [facility] [address] [id number] [place] [address]- 1656 14 May, 2014 [facility] [place] [facility] [address] [id number] [place] 0946 13 May, 2014 [facility] [place] [facility] [address] [facility] [id number] [place] [address]- 0336 Apr, [facility] [place] [facility] [address] [id number], [place] [address]- 7810 Apr, [facility] [place] [facility] [address] [id number] [place] [address]- 3908 Apr, [facility] [place] [facility] [address] [facility] [id number] [place] [address]- 7920 Apr, [facility] [place] [facility] [id number], [place] [address]- 9270 Apr, [facility] [place] [facility] [address] [facility] [id number], [place] [address]- 8602 Apr, [facility] [place] [facility] [address] [facility] [id number], [place] [address]- 8877 Apr, [facility] [place] [facility] [address] [facility] [id number], [place] [address]- 7145 Apr, [facility] [place] [facility] [address] [facility] [id number], [place] [address]- 1402 Apr, [facility] [place] [facility] [address] [facility] [id number], [place] [address]- 9224 Apr, [facility] [place] [facility] [address] [facility] [id number], [place] [address]- 1863 Apr, [facility] [place] [facility] [address] [facility] [id number] 7670 Apr, [facility] [place] [facility] [address] [facility] [id number] 9121 Apr, [facility] [place] [facility] [address] [facility] [id number] [place] [address]- 2561 Apr, 2014 [facility] [place] [facility] [address] [id number] [place] [address]- 3469 Apr, [facility] [place] [facility] [address] [id number] [place] [address]- 5226 Apr, [facility] [place] [facility] [address] [id number] [place] [address]- 0560 Mar, 2014 [facility] [place] [facility] [address] [id number] [place] [address]- 9174 Mar, 2014 [facility] [place] [facility] [address] [id number] [place] [address]- 2188 Mar, 2014 [facility] [place] [facility] [address] [facility] [id number] [place] [address]- 9469 Mar, 2014 [facility] [place] [facility] [address] [id number] [place] [address]- 1008 Mar, 2014 [facility] [place] [facility] [address] [id number] [place] [address]- 0863 Mar, 2014 [facility] [place] [facility] [address] [facility] [id number] [place] [address]- 8330 Mar, 2014 [facility] [place] [facility] [address] [facility] [id number] [place] [address]- 0931 Mar, 2014 [facility] [place] [facility] [address] [id number], [place] [address]- 0721 Mar, 2014 [facility] [place] [facility] [address] [id number] [place] [address]- 8558 Mar, 2014 [facility] [place] [facility] [address] [id number] [place] [address]- 1231 Mar, 2014 [facility] [place] [facility] [address] [facility] [id number] [place] [address]- 0066 Mar, 2014 [facility] [place] [facility] [address] [facility] [id number] [place] [address]- 1167 17 Mar, 2014 [facility] [place] [facility] [address] [id number] [place] [address]- 6216 17 Mar, 2014 [facility] [place] [facility] [address] [id number] [place] [address]- 2396 Mar, 2014 [facility] [place] [facility] [address] [id number] [place] [address]- 2458 17 Mar, 2014 [facility] [place] [facility] [address] [id number] [place] [address]- 2545 Mar, 2014 [facility] [place] [facility] [address] [id number] [place] [address]- 1597 Mar, 2014 [facility] [place] [facility] [address] [facility] [id number] [place] [address]- 1746 Mar, 2014 [facility] [place] [facility] [id number] [place] [address]- 1322 Mar, 2014 [facility] [place] [facility] [address] [id number] [place] [address]- 1881 Mar, 2014 [facility] [place] [facility] [address] [facility] [id number] [place] [address]- 2028 Mar, 2014 [facility] [place] [facility] [id number] [place] [address]- 1488 Mar, 2014 [facility] [place] [facility] [address] [facility] [id number] [place] [address]- 6152 Mar, 2014 [facility] [place] [facility] [address] [facility] [id number] [place] [address]- 0266 Mar, 2014 [facility] [place] [facility] [address] [facility] [id number] [place] [address]- 8156 Mar, 2014 [facility] [place] [facility] [address] [facility] [id number] [place] [address]- 5014 Feb, [facility] [place] [facility] [address] [facility] [id number], [place] [address]- 5916 Feb, [facility] [place] [facility] [address] [id number] [place] [address]- 0112 Feb, [facility] [place] [facility] [address] [id number] [place] [address]- 6478 Feb, [facility] [place] [facility] [address] [id number] [place] [address]- 2495 Feb, [facility] [place] [facility] [address] [id number] [place] [address]- 7700 Feb, [facility] [place] [facility] [address] [id number] [place] [address]- 8562 Feb, [facility] [place] [facility] [address] [id number] [place] [address]- 8748 Feb, [facility] [place] [facility] [address] [id number] [place] [address]- 6536 Feb, [facility] [place] [facility] [address] [id number] [place] [address]- 7822 Feb, [facility] [place] [facility] [address] [id number] [place] [address]- 6392 Feb, [facility] [place] [facility] [address] [id number] [place] [address]- 5772 Feb, [facility] [place] [facility] [address] [id number] [place] [address]- 7153 Feb, [facility] [place] [facility] [address] [id number], [place] [address]- 9390 Feb, [facility] [place] [facility] [address] [id number] [place] [address]- 2146 Feb, [facility] [place] [facility] [address] [id number] [place] [address]- 1833 Jan, [facility] [place] [facility] [address] [id number] [place] [address]- 0983 Jan, [facility] [place] [facility] [address] [id number] [place] [address]- 0361 Jan, [facility] [address] [id number] [place] [address]- 7956 Jan, [facility] [address] [id number] [place] [address]- 2316 Jan, [facility] [address] [id number] [place] 9266 Jan, [facility] [address] [id number] [place] [address]- 2910 Jan, [facility] [address] [id number] [place] [address]- 1051 Jan, [facility] [address] [id number] [place] [address]- 4395 Jan, [facility] [address] [id number] [place] [address]- 7757 Jan, [facility] [address] [id number] [place] [address]- 9641 Jan, [facility] [address] [id number] [place] [address]- 8168 Jan, [facility] [address] [id number] [place] [address]- 2421 Jan, [facility] [place] [facility] [address] [id number] [place] [address]- 3414 Jan, [facility] [address] [id number] [place] [address]- 0777 Jan, [facility] [place] [facility] [address] [id number] [place] [address]- 3086 Jan, [facility] [address] [id number] [place] [id number] Jan, [facility] [place] [facility] [address] [id number] [place] [address]- 7683 Jan, [facility] [place] [facility] [address] [id number] [place] [address] Jan, [facility] [place] [facility] [address] [id number] [place] [address] Jan, [facility] [place] [facility] [address] [id number] [place] [address] Dec, [facility] [place] [facility] [address] [id number] [place] [address] Dec, [facility] [place] [facility] [address] [id number] [place] [address] Dec, [facility] [place] [facility] [address] [id number] [place] [address] Dec, [facility] [place] [facility] [address] [id number] [place] [address] Dec, [facility] [place] [facility] [address] [id number] [place] [address] Dec, [facility] [place] [facility] [address] [id number] [place] [address] Dec, [facility] [place] [facility] [address] [id number] [place] [address] Nov, [facility] [place] [facility] [address] [id number] [place] [address] Nov, [facility] [place] [facility] [address] [id number], [place] [address] Nov, [facility] [place] [facility] [address] [id number] [place] [address] Nov, [facility] [place] [facility] [address] [id number] [place] [address] Nov, [facility] [place] [facility] [address] [id number] [place] [address] Nov, [facility] [place] [facility] [address] [id number] [place] [address] Nov, [facility] [place] [facility] [address] [id number] [place] [address] Nov, [facility] [place] [facility] [address] [id number] [place] [address] Nov, [facility] [place] [facility] [address] [id number] [place] [address] Nov, [facility] [place] [facility] [address] [id number] [place] [address] 29 Oct, 2013 [facility] [place] [facility] [address] [id number] [place] [address] 29 Oct, 2013 [facility] [place] [facility] [address] [id number] [place] [address] 15 Oct, 2013 [facility] [place] [facility] [address] [id number] [place] [address] 15 Oct, 2013 [facility] [place] [facility] [address] [id number] [place] [address] 15 Oct, 2013 [facility] [place] [facility] [address] [id number] [place] [address] 15 Oct, 2013 [facility] [place] [facility] [address] [id number] [place] [address] 10 Oct, 2013 [facility] [place] [facility] [address] [id number] [place] [address] 10 Oct, 2013 [facility] [place] [facility] [address] [id number], [place] [address] 02 Oct, 2013 [facility] [place] [facility] [address] [id number] [place] [address] Oct, [facility] [place] [facility] [address] [id number] [place] [address] Sep, [facility] [place] [facility] [address] [id number] [place] [address] Sep, [facility] [place] [facility] [address] [id number] [place] [address] Sep, [facility] [place] [facility] [address] [id number] [place] [address] Sep, [facility] [facility] [address] [id number] [place] [address] Sep, [facility] [place] [facility] [address] [id number] [place] [address] Sep, [facility] [place] [facility] [address] [id number] [place] [address] 24[address] Sep, [facility] [place] [facility] [address] [id number] [place] [address]- 1669 Sep, [facility] [place] [facility] [address] [id number] [place] [address] Sep, [facility] [place] [facility] [address] [id number] [place] [address] 5969 Sep, [facility] [facility] [address] [id number] [place] [address] 1752 Aug, [facility] [facility] [address] [id number] [place] [address] Aug, [facility] [address] [id number] [place] [address] 74[address] Aug, [facility] [address] [id number] [place] [address] 3644 Aug, [facility] [address] [id number] [place] [address]- 1517 Aug, [facility] [place] [facility] [address] [id number] [place] [address]- 1502 Aug, [facility] [facility] [address] [id number] [place] [address]- 5884 Aug, [facility] [place] [facility] [address] [id number] [place] [address]- 6635 Aug, [facility] [place] [facility] [address] [id number] [place] [address]- 4862 15 Aug, 2013 [facility] [place] [facility] [address] [id number] [place] [address]- 3216 15 Aug, 2013 [facility] [place] [facility] [address] [id number] [place] [address]- 0982 07 Aug, 2013 [facility] [place] [facility] [address] [id number] [place] [address]- 0606 Aug, [facility] [place] [facility] [address] [id number] [place] [address]- 1750 Jul, [facility] [address] [id number] [place] [address]- 0572 Jul, [facility] [place] [facility] [address] [id number] [place] [address]- 1163 Jul, [facility] [place] [facility] [address] [id number] [place] [address]- 2092 Jul, [facility] [place] [facility] [address] [id number] [place] [address]- 9305 Jul, [facility] [address] [id number] [place] [address]- 1061 Jul, [facility] [place] [facility] [address] [id number] [place] [address]- 9562 17 Jul, 2013 [facility] [place] [facility] [address] [id number] [place] [address]- 9213 16 Jul, 2013 [facility] [place] [facility] [address] [id number] [place] [address]- 7715 16 Jul, 2013 [facility] [facility] [address] [id number] [place] [address]- 3207 14 Jul, 2013 [facility] [place] [facility] [address] [id number] [place] [address]- 6647 14 Jul, 2013 [facility] [place] [facility] [address] [id number] [place] [address]- 0697 Jul, [facility] [place] [facility] [address] [id number] [place] [address]- 0110 Jul, [facility] [address] [id number] [place] [address]- 3032 Jul, [facility] [place] [facility] [address] [id number] [place] [address]- 4548 Jul, [facility] [address] [id number] [place] [address]- 3895 Jul, [facility] [address] [id number] [place] [address]- 5083 Jul, [facility] [place] [facility] [address] [id number] [place] [address]- 3021 June, [facility] [address] [id number] [place] [address]- 4768 June, [facility] [address] [id number] [place] [address]- 3791 June, [facility] [place] [facility] [address] [id number] [place] [address]- 2060 June, [facility] [place] [facility] [address] [id number] [place] [address]- 2612 June, [facility] [address] [id number] [place] [address]- 6102 June, [facility] [address] [id number] [place] [address]- 9892 June, [facility] [address] [id number] [place] [address]- 3445 June, [facility] [address] [id number] [place] [address]- 3427 June, [facility] [address] [id number] [place] [address]- 4467 June, [facility] [address] [id number] [place] [address]- 3380 June, [facility] [address] [id number] [place] [address]- 2525 June, [facility] [address] [id number] [place] [address]- 9581 June, [facility] [address] [id number] [place] [address]- 1536 June, [facility] [address] [id number] [place] [address]- 8562 June, [facility] [address] [id number] [place] [address]- 8373 June, [facility] [address] [id number] [place] [address]- 5086 June, [facility] [address] [id number] [place] [address]- 3298 June, [facility] [address] [id number] [place] [address]- 0205 June, [facility] [address] [id number] [place] [address]- 0670 June, [facility] [address] [id number] [place] [address]- 3892 June, [facility] [address] [id number] [place] [address]- 8887 June, [facility] [address] [id number] [place] [address]- 9788 June, [facility] [address] [id number] [place] [address]- 9098 June, [facility] [address] [id number] [place] [address] June, [facility] [address] [id number] [place] [address]- 2353 June, [facility] [address] [id number] [place] [address]- 2285 June, [facility] [address] [id number] [place] [address]- 3918 June, [facility] [address] [id number] [place] [address]- 0762 June, [facility] [address] [id number] [place] [address]- 5733 June, [facility] [address] [id number] [place] [address]- 4674 June, [facility] [address] [id number] [place] [address]- 7292 June, [facility] [address] [id number] [place] [address]- 1841 May, [facility] [address] [id number] [place] [address]- 7586 May, [facility] [address] [id number] [place] [address]- 2853 May, [facility] [address] [id number] [place] [address]- 2691 May, [facility] [address] [id number] [place] [address]- 8874 May, [facility] [address] [id number], [place] [address]- 2540 May, [facility] [address] [id number] [place] [address]- 8767 May, [facility] [address] [id number] [place] [address]- 6795 May, [facility] [address] [id number] [place] [address]- 5348 May, [facility] [address] [id number] [place] [address]- 8524 May, [facility] [address] [id number] [place] [address]- 6801 May, [facility] [address] [id number] [place] [address]- 2326 May, [facility] [address] [id number] [place] [address]- 5216 May, [facility] [address] [id number] [place] [address]- 8185 May, [facility] [address] [id number] [place] [address]- 1668 May, [facility] [address] [id number] [place] [address]- 9962 Apr, [facility] [address] [id number] [place] [address]- 9816 Apr, [facility] [address] [id number] [place] [address]- 5320 Apr, [facility] [address] [id number] [place] [address]- 4333 Apr, [facility] [address] [facility] [id number] [place] [address]- 9010 Apr, [facility] [address] [id number] [place] [address]- 3769 Apr, [facility] [address] [id number] [place] [address]- 8093 Mar, [facility] [address] [id number] [place] [address]- 4606 Mar, [facility] [address] [id number] [place] [address]- 6740 Mar, [facility] [address] [id number] [place] [address]- 7299 Mar, [facility] [address] [id number] [place] [address]- 6163 Mar, [facility] [address] [id number] [place] [address]- 4540 Mar, [facility] [address] [id number] [place] [address]- 1882 Mar, [facility] [address] [id number] [place] [address]- 0641 Mar, [facility] [address] [id number] [place] [address]- 4553 Feb, [facility] [address] [id number] [place] [address]- 0951 Feb, [facility] [address] [id number] [place] [address]- 3367 Feb, [facility] [address] [id number] [place] [address]- 4259 Feb, [facility] [address] [id number] [place] [address]- 4444 Feb, [facility] [address] [id number] [place] [address]- 3212 Feb, [facility] [address] [id number] [place] [address]- 9074 Feb, [facility] [address] [id number] [place] [address]- 3465 Feb, [facility] [address] [id number] [place] [address]- 5376 Feb, [facility] [address] [id number] [place] [address]- 1392 Feb, [facility] [address] [id number] [place] [address]- 0476 Jan, [facility] [address] [id number] [place] [address]- 9074 30 Jan, 2013 [facility] [address] [id number] [place] [address]- 5819 Jan, [facility] [address] [id number] [place] [address]60 Jan, [facility] [address] [id number] [place] [address]- 5068 Jan, [facility] [address] [id number] [place] [address]- 1501 Jan, [facility] [address] [id number] [place] Jan, [facility] [address] [id number] [place] [address]- 2012 Jan, [facility] [address] [id number] [place] [address]- 6825 Dec, [facility] [address] [id number] [place] [address]- 7478 Dec, [facility] [address] [id number] [place] [address]- 1664 Dec, [facility] [address] [facility] [id number] [place] [address]- 9070 Dec, [facility] [address] [id number] [place] [address]- 6385 Dec, [facility] [address] [id number] [place] [address]- 5870 Dec, [facility] [address] [id number] [place] [address]- 8963 Dec, [facility] [address] [facility] [id number] [place] [address]- 9392 Dec, [facility] [address] [id number] [place] [address]- 6334 Nov, [facility] [address] [id number] [place] [address]- 1492 Nov, [facility] [address] [id number] [place] [address]- 4917 Nov, [facility] [address] [id number] [place] [address]- 7482 14 Nov, 2012 [facility] [address] [id number] [place] [address]- 0915 Nov, [facility] [address] [id number] [place] [address]- 3677 Nov, [facility] [address] [id number] [place] [address]- 6552 Nov, [facility] [address] [id number] [place] [address]- 7368 Oct, [facility] [address] [id number] [place] [address]- 8814 Oct, [facility] [address] [id number] [place] [address]- 6356 05 Oct, 2012 [facility] [address] [id number] [place] [address]- 6117 Sep, [facility] [address] [id number] [place] [address]- 5982 Sep, [facility] [address] [id number] [place] [address]- 6572 Sep, [facility] [address] [id number] [place] [address]- 0935 Sep, [facility] [address] [id number] [place] [address]- 0354 Aug, [facility] [address] [id number] [place] [address]- 0180 Aug, [facility] [address] [id number] [place] [address]- 4863 Aug, [facility] [address] [id number] [place] [address]- 9268 Aug, [facility] [address] [id number] [place] [address]- 4472 Aug, [facility] [address] [id number] [place] [address]- 9891 Jul, [facility] [facility] [address] [id number] [place] [address]- 9525 Jul, [facility] [address] [id number] [place] [address]- 1613 Jul, [facility] [address] [id number] [place] [address]- 2007 Jul, [facility] [address] [id number] [place] [address]- 4187 Jul, [facility] [place] [facility] [address] [id number] [place] [address]- 2169 June, [facility] [address] [id number] [place] [address]- 4990 June, [facility] [place] [facility] [address] [id number] [place] [address]- 9637 June, [facility] [place] [facility] [address] [id number] [place] [address]- 0877 June, [facility] [place] [facility] [address] [id number] [place] [address]- 4649 June, [facility] [place] [facility] [address] [id number] [place] [address]- 0270 May, [facility] [place] [facility] [address] [id number] [place] [address]- 9462 May, [facility] [place] [facility] [address] [id number] [place] [address]- 8671 May, [facility] [place] [facility] [address] [id number] [place] [address]- 7130 17 May, 2012 [facility] [address] [id number] [place] [address]- 4831 16 May, 2012 [facility] [place] [facility] [address] [id number] [place] [address]- 7430 10 May, 2012 [facility] [address] [facility] [id number] [place] [address]- 6601 04 May, 2012 [facility] [address] [id number] [place] [address]- 9944 19 Apr, 2012 [facility] [address] [id number] [place] [address]- 0377 11 Apr, 2012 [facility] [address] [facility] [id number] [place] [address]- 5713 08 Apr, 2012 [facility] [address] [id number] [place] [address]- 6660 26 Mar, 2012 [facility] [address] [facility] [id number] [place] [address]- 8081 25 Mar, 2012 [facility] [address] [id number] [place] [address]- 3918 20 Mar, 2012 [facility] [address] [id number] [place] [address]- 9362 19 Mar, 2012 [facility] [address] [facility] [id number], [place] [address]- 8109 13 Mar, 2012 [facility] [address] [facility] [id number] [place] [address]- 9648 13 Mar, 2012 [facility] [place] [facility] [address] [facility] [id number] [place] [address]- 3711 07 Mar, 2012 [facility] [place] [facility] [address] [facility] [id number], [place] [address]- 4192 07 Mar, 2012 [facility] [place] [facility] [id number], [place] [address]- 4071 31 Feb, 2012 [facility] [address] [id number] [place] [address]- 9278 29 Feb, 2012 [facility] [place] [facility] [address] [id number] [place] [address]- 9063 28 Feb, 2012 [facility] [place] [facility] [address] [id number] [place] [address]- 7854 Feb, [facility] [place] [facility] [address] [id number] [place] [address]- 5559 18 Feb, 2012 [facility] [address] [id number] [place] [address]- 8525 15 Feb, 2012 [facility] [place] [facility] [address] [id number] [place] [address]- 3632 14 Feb, 2012 [facility] [address] [id number] [place] [address]- 3537 27 Jan, 2012 [facility] [place] [facility] [address] [id number] [place] [address]- 4331 27 Jan, 2012 [facility] [address] [id number] [place] [address]- 0774 Jan, [facility] [place] [facility] [address] [id number] [place] [address]- 4169 Jan, [facility] [address] [id number] [place] [address]- 3131 Jan, [facility] [place] [facility] [address] [id number] [place] [address]- 0309 27 Jan, 2012 [facility] [place] [facility] [address] [id number] [place] [address]- 6072 Jan, [facility] [place] [facility] [address] [id number] [place] [address]- 5566 26 Jan, 2012 [facility] [place] [facility] [address] [id number] [place] [address]- 9283 13 Jan, 2012 [facility] [place] [facility] [address] [id number] [place] [address]- 3229 13 Jan, 2012 [facility] [place] [facility] [address] [id number] [place] [address]- 2976 11 Jan, 2012 [facility] [place] [facility] [address] [id number] [place] [address]- 9986 11 Jan, 2012 [facility] [place] [facility] [address] [id number] [place] [address] Jan, [facility] [place] [facility] [address] [id number] [place] [address] Jan, [facility] [place] [facility] [address] [id number] [place] [address] 29 Dec, 2011 [facility] [place] [facility] [address] [id number] [place] [address] 29 Dec, 2011 [facility] [place] [facility] [address] [id number] [place] [address] Dec, [facility] [place] [facility] [address] [id number] [place] [address] 27 Dec, 2011 [facility] [place] [facility] [address] [id number] [place] [address]- 2011 27 Dec, 2011 [facility] [place] [facility] [address] [id number] [place] [address] 27 Dec, 2011 [facility] [place] [facility] [address] [id number] [place] [address]47 Dec, [facility] [place] [facility] [address] [id number] [place] [address]- [address] 26 Dec, 2011 [facility] [place] [facility] [address] [id number] [place] [address] 13 Dec, 2011 [facility] [place] [facility] [address] [id number] [place] [address] 13 Dec, 2011 [facility] [place] [facility] [address] [id number] [place] [address] Dec, [facility] [place] [facility] [address] [id number] [place] [address] 9038 Dec, [facility] [place] [facility] [address] [id number] [place] [address]- 48[address] Dec, [facility] [place] [facility] [address] [id number] [place] [address]- [address] Dec, [facility] [place] [facility] [address] [id number] [place] [address] Dec, [facility] [place] [facility] [address] [id number] [place] [address]- [address] Dec, [facility] [place] [facility] [address] [id number] [place] [address]- 89[address] Dec, [facility] [place] [facility] [address] [id number] [place] [address] Dec, [facility] [place] [facility] [address] [id number] [place] [address]- [address] Dec, [facility] [place] [facility] [address] [id number] [place] [address] Dec, [facility] [place] [facility] [address] [facility] [id number], [place] [address] Nov, [facility] [place] [facility] [address] [id number], [place] [address] Nov, [facility] [place] [facility] [address] [id number], [place] [address] 30 Nov, 2011 [facility] [place] [facility] [address] [id number] [place] [address]- 3969 Nov, [facility] [place] [facility] [address] [id number], [place] [address] Nov, [facility] [place] [facility] [address] [id number], [place] [address] Nov, [facility] [place] [facility] [address] [id number] [place] [address] 15 Nov, 2011 [facility] [place] [facility] [address] [id number] [place] [address]- 9086 15 Nov, 2011 [facility] [place] [facility] [address] [id number] [place] [address] 10 Nov, 2011 [facility] [place] [facility] [address] [id number] [place] [address]- 1576 10 Nov, 2011 [facility] [place] [facility] [address] [id number] [place] [address] Nov, [facility] [place] [facility] [address] [id number] [place] [address], [place] [address]- [address] Nov, [facility] [place] [facility] [address] [id number] [place] [address]- 1766 04 Nov, 2011 [facility] [place] [facility] [address] [id number] [place] [address] 30 Oct, 2011 [facility] [place] [facility] [address] [id number] [place] [address]- [address] 27 Oct, 2011 [facility] [place] [facility] [address] [id number] [place] [address]- [address] 24 Oct, 2011 [facility] [place] [facility] [address] [id number] [place] [address] 4712 20 Oct, 2011 [facility] [place] [facility] [address] [id number] [place] [address]- 0069 11 Oct, 2011 [facility] [place] [facility] [address] [id number] [place] [address]- 2547 11 Oct, 2011 [facility] [place] [facility] [address] [id number] [place] [address]- [address]061 24 Sep, 2011 [facility] [place] [facility] [address] [id number] [place] [address]- 3693 23 Sep, 2011 [facility] [place] [facility] [address] [id number] [place] [address]- [address]471 16 Sep, 2011 [facility] [place] [facility] [address] [id number] [place] [address]- [address]266 Sep, [facility] [place] [facility] [address] [id number] [place] [address] Aug, [facility] [place] [facility] [address] [id number] [place] [address] Aug, [facility] [place] [facility] [address] [id number] [place] [address]- [address] Aug, [facility] [place] [facility] [address] [id number] [place] [address]- [address]684 Jul, [facility] [place] [facility] [address] [id number] [place] [address]- [address] Jul, [facility] [place] [facility] [address] [id number] [place] [address]- [address]377 Jul, [facility] [place] [facility] [address] [id number] [place] [address]- [address]114 Jul, [facility] [place] [facility] [address] [id number] [place] [address]- 1276 June, [facility] [place] [facility] [address] [id number] [place] [address]- [address] June, [facility] [place] [facility] [address] [id number] [place] [address] June, [facility] [place] [facility] [address] [id number] [place] [address]- 8262 June, [facility] [place] [facility] [address] [id number] [place] [address]- 49[address] June, [facility] [place] [facility] [address] [id number] [place] [address]- 1726 June, [facility] [place] [facility] [address] [id number] [place] [address]- [address]285 May, [facility] [place] [facility] [address] [id number] [place] [address]- 3446 May, [facility] [place] [facility] [address] [id number] [place] [address]- 6564 May, [facility] [place] [facility] [address] [id number] [place] [address]- [address] 24 May, 2011 [facility] [place] [facility] [address] [id number] [place] [address] May, [facility] [place] [facility] [address] [id number] [place] [address]- 2593 May, [facility] [place] [facility] [address] [id number] [place] [address]- 2754 May, [facility] [place] [facility] [address] [id number] [place] [address]- 5345 May, [facility] [place] [facility] [address] [id number] [place] [address]- 6222 May, [facility] [place] [facility] [address] [id number] [place] [address]- 1692 Apr, [facility] [place] [facility] [address] [id number] [place] [address]- 1607 Mar, [facility] [place] [facility] [address] [id number] [place] [address]- 1747 Mar, [facility] [place] [facility] [address] [id number] [place] [address] Mar, [facility] [place] [facility] [address] [id number] [place] [address] Mar, [facility] [place] [facility] [address] [id number] [place] [address] Feb, [facility] [place] [facility] [address] [id number] [place] [address] Feb, [facility] [place] [facility] [address] [id number] [place] [address] Feb, [facility] [place] [facility] [address] [id number] [place] [address] 28 Jan, 2011 [facility] [place] [facility] [address] [id number] [place] [address] 21 Jan, 2011 [facility] [place] [facility] [address] [id number] [place] [address] 14 Jan, 2011 [facility] [place] [facility] [address] [id number] [place] [address] 29 Dec, 2010 [facility] [place] [facility] [address] [id number] [place] [address] 28 Dec, 2010 [facility] [place] [facility] [address] [id number] [place] [address], [place] [address] 16 Dec, 2010 [facility] [place] [facility] [address] [id number] [place] [address] 15 Dec, 2010 [facility] [place] [facility] [address] [id number] [place] [address] 31 Nov, 2010 [facility] [place] [facility] [address] [id number] [place] [address] 31 Nov, 2010 [facility] [place] [facility] [address] [id number] [place] [address] 19 Nov, 2010 [facility] [place] [facility] [address] [id number] [place] [address] 18 Nov, 2010 [facility] [place] [facility] [address] [id number] [place] [address] 13 Oct, 2010 [facility] [place] [facility] [address] [id number] [place] [address] 20 Jul, 2010 [facility] [place] [facility] [address] [id number] [place] [address] 13 Jan, 2010 [facility] [place] [facility] [address] [id number] [place] [address] 30 Dec, 2009 [facility] [place] [facility] [address] [id number] [place] Dec, [facility] [place] [facility] [address] [id number] [place] [address] Dec, [facility] [place] [facility] [address] [id number] [place] [address] Dec, [facility] [place] [facility] [address] [id number] [place] [address] Dec, [facility] [place] [facility] [address] [id number] [place] [address] Dec, [facility] [place] [facility] [address] [id number] [place] [address] Nov, [facility] [place] [facility] [address] [id number] [place] [address]666 Nov, [facility] [place] [facility] [address] [id number] [place] [address] Nov, [facility] [place] [facility] [address] [id number] [place] [address] Apr, [facility] [place] [facility] [address] [id number] [place] [address] Apr, [facility] [place] [facility] [address] [id number] [place] [address] 29 Jan, 2009 [facility] [place] [facility] [address] [id number] [place] [address] 2546 28 Jan, 2009 [facility] [place] [facility] [address] [id number] [place] [address] 2546 23 Jan, 2009 [facility] [place] [facility] [address] [id number] [place] [address] 2546 17 Jan, 2009 [facility] [place] [facility] [address] [id number] [place] [address] 2546 14 Jan, 2009 [facility] [place] [facility] [address] [id number] [place] [address] Jan, [facility] [place] [facility] [id number] [address] Dec, [facility] [id number], [place] [address] Dec, [facility] [id number] [place] [address]367[address] Dec, [facility] [id number] [place] [address]- [address] Dec, [facility] [id number] [place] [address] [id number]- [address] Dec, [facility] [id number] [place] [address]- [address] Dec, [facility] [id number] [place] [address]- [address] Nov, [facility] [id number] [place] [address]- [address] Nov, [facility] [id number] [place] [address]- [address] Aug, [facility] [id number] [place] [address] Jul, [facility] [id number], [place] [address] June, [facility] [id number] [place] [address] [id number]- [address] Apr, IMMUNIZATIONS No Known Immunizations SOCIAL HISTORY [...] of loosened hardware/hip replacement ( [place] in [place]) 09/2008 Hospitalization History in pt rehab s/p left hip repair 09/2008-11/2008 Hospitalization History [facility] 07/2009
--- OUTSIDE RECORDS SUMMARY | 2017-10-26 13:55 | XMS REPORT ---
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 Active 661415332 Problem Panic attacks F41.0 Active 707641616 Problem Seasonal allergic rhinitis due to other allergic trigger J30.89 Active 673751641 Problem Dementia without behavioral disturbance, unspecified dementia type F03.90 Active 65668945 Problem Generalized osteoarthritis M15.9 Active 019558360 Problem Anxiety disorder, unspecified F41.9 Active 273495494 Problem Generalized anxiety disorder F41.1 Active 114431803 ALLERGIES No Known Allergies SOCIAL HISTORY No smoking Hx information available PLAN OF CARE VITAL SIGNS MEDICATIONS Medication Instructions Dosage Frequency Start Date End Date Duration Status Klonopin 0.5 MG Orally. Twice a day 1 tablet 12h Aug, 28 days Active RESULTS No Results PROCEDURES No Known procedures IMMUNIZATIONS No Known Immunizations
--- OUTSIDE RECORDS SUMMARY | 2017-10-26 13:57 | XMS REPORT ---
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 Name Role Phone KONGPROMISE KIMHANY Unavailable PROBLEMS Type Condition ICD9-CM Code CJM03-QH Code Onset Dates Condition Status SNOMED Code Problem Generalized anxiety disorder F41.1 Active 545690694 Problem Seasonal allergic rhinitis due to other allergic trigger J30.89 Active 241130237 Problem Anxiety disorder, unspecified F41.9 Active 351827459 Problem 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 Active 615935903 Problem Meningioma D32.9 Active 878058285 Problem Generalized osteoarthritis M15.9 Active 054065795 Problem Dementia without behavioral disturbance, unspecified dementia type F03.90 Active 41062297 Problem Debility R53.81 Active 11375099 Problem At risk for falls Z91.81 Active 116852386 Problem Other chronic pain G89.29 Active 77468892 Problem Panic attacks F41.0 Active 089423464 Problem Acute drug withdrawal syndrome without complication F19.230 Active 489782941 Problem Anxiety F41.9 Active 13667864 ALLERGIES No Information ENCOUNTERS Encounter Location Date Diagnosis [place] [id number] [place] [address] 47764- 0285 Aug, [facility] [id number] [place] [address] 71129- 1981 Jul, Dementia without behavioral disturbance, unspecified dementia type F03.90 [facility] [id number] [place] [address] 79575- 7331 Jul, 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 ; Generalized osteoarthritis M15.9 ; Other chronic pain G89.29 ; At risk for falls Z91.81 and Debility R53.81 [facility] [id number] [place] [address] 84076- 3366 Jul, [facility] [id number] [place] [address] 66984- 5406 June, Dementia without behavioral disturbance, unspecified dementia type F03.90 [facility] [id number] [place] [address] 13999- 0640 June, [facility] [id number] [place] [address] 19552- 7037 June, [facility] [id number] [place] [address] 08726- 5881 June, [facility] [address] 19576- 5732 June, Dementia without behavioral disturbance, unspecified dementia type F03.90 and Anxiety F41.9 [facility] [id number] [place] [address] 71913- 7256 May, [facility] [id number] [place] [address] 01648- 1670 May, [facility] [id number] [place] [address] 73190 -5699 May, Anxiety F41.9 ; Acute drug withdrawal syndrome without complication F19.230 and Abdominal pain, unspecified abdominal location R10.9 [place] [id number] [place] [address] 35102- 4550 May, Panic attacks F41.0 [facility] [id number] [place] [address] 81761- 2628 May, Other chronic pain G89.29 and Generalized anxiety disorder F41.1 [place] [id number] [place] [address] 99675- 1499 Apr, Housing problems Z59.9 and Panic attacks F41.0 [facility] [id number] [place] [address] 43726- 1913 Mar, Panic attacks F41.0 [place] [id number] [place] [address] 54703- 8643 Feb, [facility] [id number] [place] [address] 13794- 4260 Feb, Panic attacks F41.0 [facility] [id number] [place] [address] 36565- 6103 Feb, Pain in right knee M25.561 ; Pain in left knee M25.562 ; Other chronic pain G89.29 ; Housing problems Z59.9 ; Dementia without behavioral disturbance, unspecified dementia type F03.90 ; Generalized anxiety disorder F41.1 and Advance directive declined by patient Z78.9 [place] [id number] [place] [address] 57380- 5126 Jan, Panic attacks F41.0 [facility] [id number] [place] [address] 10010- 9299 Jan, Panic attacks F41.0 [facility] [id number] [place] [address] 58107- 0559 Dec, Panic attacks F41.0 [facility] [id number] [place] [address] 53396 -3070 Nov, Allergic contact dermatitis due to cosmetics L23.2 [place] [id number] [place] [address] 43711- 7011 Nov, Panic attacks F41.0 [facility] [id number] [place] [address] 28875- 3177 Oct, Panic attacks F41.0 [place] [id number] [place] [address] 47484- 8980 Sep, Panic attacks F41.0 ; Insect bite, initial encounter W57.XXXA and 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 [facility] [id number] [place] [address] 17732- 4167 Sep, [place] [address] [place] [address]- 5743 Aug, Generalized anxiety disorder F41.1 [facility] [id number] [place] [address] 91151- 7496 Jul, [facility] [id number] [place] [address] 21694 -1130 June, Seasonal allergic rhinitis due to other allergic trigger J30.89 [facility] [id number] [place] [address] 92284- 9287 June, [facility] [id number] [place] [address] 09170- 5971 June, [facility] [id number] [place] [address] 23036 -1836 June, Dysuria R30.0 and RLQ abdominal pain R10.31 [facility] [id number] [place] [address] 16076- 0246 May, Generalized anxiety disorder F41.1 ; Generalized osteoarthritis M15.9 and Dementia without behavioral disturbance, unspecified dementia type F03.90 [facility] [id number] [place] [address] 25399- 4452 May, [facility] [id number] [place] [address] 77586- 2978 May, [facility] [id number] [place] [address] 79722- 3280 May, [facility] [id number] [place] [address] 51394- 8441 Apr, [facility] [id number] [place] [address] 77937- 4950 Apr, Generalized anxiety disorder F41.1 [facility] [id number] [place] [address] 62295- 7353 Apr, [facility] [id number] [place] [address] 04884- 1199 Apr, [facility] [address] [address]- 7716 Apr, [facility] [id number] [place] [address] 42773- 9451 Apr, Generalized anxiety disorder F41.1 [facility] [address] [address]- 1636 Mar, [facility] [id number] [place] [address] 02845- 9809 Mar, [facility] [id number] [place] [address] 61223- 7229 Mar, [facility] [id number] [place] [address] 34790- 8924 Mar, [facility] [id number] [place] [address] 88327- 1807 Mar, Generalized anxiety disorder F41.1 [facility] [id number] [place] [address] 02757- 4067 Feb, Anxiety disorder, unspecified F41.9 [facility] [address] [address]- 0614 Feb, [facility] [address] [address]- 7364 Feb, [facility] [address] [address]- 0982 Feb, [facility] [address] [address] -8931 Feb, Urinary frequency R35.0 and Acute cystitis without hematuria N30.00 [facility] [address] [address]- 3491 Feb, [facility] [address] [address]- 6905 Jan, [facility] [id number] [address]- 3485 Jan, [facility] [id number] [place] [address]- 2635 Dec, [facility] [id number] [place] [address]- 6953 Dec, [facility] [id number] [place] [address], [place] [address]- 1416 Dec, Edema, unspecified type R60.9 [facility] [id number] [place] [address]- 7620 Dec, [facility] [id number] [place] [address], [place] [address]- 7974 Dec, [facility] [id number] [place] [address], [place] [address]- 9221 30 Oct, 2015 Generalized anxiety disorder F41.1 [facility] [id number] [place] [address]- 6356 20 Oct, 2015 [facility] [address] [address]- 3011 16 Oct, 2015 [facility] [address], [place] [address]- 8765 15 Oct, 2015 [facility] [address] [address]- 0643 06 Oct, 2015 [facility] [address], [place] [address]- 1125 Aug, Anxiety disorder, unspecified F41.9 [facility] [address], [place] [address]- 5842 Jul, Anxiety disorder, unspecified F41.9 [facility] [address] [address]- 7637 Jul, Generalized anxiety disorder F41.1 [facility] [id number] [address]- 6331 Jul, [facility] [address] [address]- 4751 June, [facility] [address], [place] [address]- 3764 June, [facility] [id number] [place] [address] 48215- 2204 June, [facility] [id number] [place] [address] 31374- 3936 June, [facility] [id number] [place] [address] 60197- 0057 May, [facility] [address] [address] -9458 May, Dementia without behavioral disturbance, unspecified dementia type F03.90 and Generalized osteoarthritis M15.9 [facility] [id number] [place] [address] 74538- 2579 May, Generalized osteoarthritis M15.9 and 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 [facility] [address] [address]- 1173 Apr, [facility] [address], [place] [address]- 8495 Apr, [facility] [address], [place] [address]- 7206 Apr, [facility] [address], [place] [address]- 9458 Mar, [facility] [id number] [place] [address] 37598- 5957 Mar, [facility] [address] [address]- 7539 Mar, Generalized anxiety disorder F41.1 [facility] [address] [place] [address] 76099- 6119 Feb, Other infective acute otitis externa of right ear H60.[address] 84161- 0598 Dec, Dysuria R30.0 ; Generalized osteoarthritis M15.9 and Gastroesophageal reflux disease, esophagitis presence not specified K21.[address] 54146- 0033 Dec, [place] [address] 16582- 8224 Dec, Generalized anxiety disorder F41.1 ; Encounter for immunization Z23 and Dementia F03.[address] 20191- 9705 Nov, [address] 29730- 6144 Oct, [address] 30329- 9945 Oct, 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 [address]- 4003 June, [facility] [address] [place] [address]- 6606 June, Anxiety, generalized 300.02 ; Dementia 294.20 and No condition on [place] II V71.09 [facility] [id number] [place] [address]- 7016 May, [facility] [address] [facility] [id number] [place] [address]- 7506 May, [facility] [address] [place] [address]- 8751 Apr, [facility] [id number] [place] [address]- 1006 Apr, [facility] [id number] [place] [address]- 2058 Apr, [facility] [id number] [address]- 8416 Apr, [facility] [address] [place] [address]- 4436 Apr, [facility] [id number] [place] [address]- 9558 Apr, [facility] [id number] [place] [address]- 0656 Apr, [facility] [id number] [address]- 7206 Apr, [facility] [id number] [place] [address]- 4796 Apr, [facility] [id number] [place] [address]- 2546 Apr, [facility] [id number] [address]- 4532 Apr, [facility] [place] [facility] [address] [id number] [place] [address]- 3262 Apr, [facility] [place] [facility] [address] [id number] [place] [address]- 8014 Apr, [facility] [place] [facility] [address] [facility] [id number] [place] [address]- 7791 Apr, [facility] [place] [facility] [address] [facility] [id number] [place] [address]- 0319 Apr, [facility] [place] [facility] [address] [id number] [place] [address]- 9817 Apr, [facility] [place] [facility] [address] [facility] [id number] [place] [address]- 2571 Mar, 2014 [facility] [place] [facility] [address] [facility] [id number] [place] [address]- 6002 Mar, 2014 [facility] [place] [facility] [address] [facility] [id number] [place] [address]- 8072 Mar, 2014 [facility] [place] [facility] [address] [facility] [id number] [place] [address]- 7825 Mar, 2014 [facility] [place] [facility] [address] [facility] [id number] [place] [address]- 1430 Mar, 2014 [facility] [place] [facility] [address] [facility] [id number] [place] [address]- 3760 Mar, 2014 [facility] [place] [facility] [address] [facility] [id number] [place] [address]- 1117 Mar, 2014 [facility] [place] [facility] [address] [facility] [id number] [place] [address]- 6162 Mar, 2014 [facility] [place] [facility] [address] [facility] [id number] [place] [address]- 6597 Mar, 2014 [facility] [place] [facility] [address] [facility] [id number] [place] [address]- 0945 Mar, 2014 [facility] [place] [facility] [address] [id number] [place] [address]- 8312 18 Mar, 2014 [facility] [place] [facility] [address] [id number] [place] [address]- 7629 18 Mar, 2014 [facility] [place] [facility] [address] [id number] [place] [address]- 2549 17 Mar, 2014 [facility] [place] [facility] [address] [facility] [id number] [place] [address]- 8185 17 Mar, 2014 [facility] [place] [facility] [address] [id number] [place] [address]- 5291 17 Mar, 2014 [facility] [place] [facility] [address] [id number] [place] [address]- 9524 17 Mar, 2014 [facility] [place] [facility] [address] [facility] [id number] [place] [address]- 0348 13 Mar, 2014 [facility] [place] [facility] [address] [facility] [id number] [place] [address]- 1906 13 Mar, 2014 [facility] [place] [facility] [address] [facility] [id number] [place] [address]- 3287 13 Mar, 2014 [facility] [place] [facility] [address] [facility] [id number] [place] [address]- 6432 13 Mar, 2014 [facility] [place] [facility] [address] [facility] [id number] [place] [address]- 8090 12 Mar, 2014 [facility] [place] [facility] [address] [facility] [id number] [place] [address]- 2547 12 Mar, 2014 [facility] [place] [facility] [address] [facility] [id number] [place] [address]- 4553 10 Mar, 2014 [facility] [place] [facility] [address] [facility] [id number] [place] [address]- 5566 10 Mar, 2014 [facility] [place] [facility] [address] [facility] [id number] [place] [address]- 4560 03 Mar, 2014 [facility] [place] [facility] [address] [facility] [id number] [place] [address]- 2245 Mar, [facility] [address] [id number] [place] [address]- 2394 Feb, [facility] [place] [facility] [address] [id number] [place] [address]- 1490 Feb, [facility] [address] [id number] [place] [address]- 0579 Feb, [facility] [place] [facility] [address] [id number] [place] [address]- 5741 Feb, [facility] [address] [id number] [place] [address]- 7023 Feb, [facility] [place] [facility] [address] [id number] [place] [address]- 9756 Feb, [facility] [place] [facility] [address] [id number] [place] [address]- 4957 Feb, [facility] [address] [id number] [place] [address]- 1877 Feb, [facility] [place] [facility] [address] [id number] [place] [address]- 8646 Feb, [facility] [address] [id number] [place] [address]- 8623 Feb, [facility] [place] [facility] [address] [id number] [place] [address]- 2387 Feb, [facility] [place] [facility] [address] [id number] [place] [address]- 2040 Feb, [facility] [place] [facility] [address] [id number] [place] [address]- 6344 Feb, [facility] [place] [facility] [address] [id number] [place] [address]- 5996 Feb, [facility] [place] [facility] [address] [id number] [place] [address]- 0396 Feb, [facility] [place] [facility] [address] [id number] [place] [address]- 3171 Jan, [facility] [place] [facility] [address] [id number] [place] [address]- 5985 Jan, [facility] [place] [facility] [address] [id number] [place] [address]- 5412 Jan, [facility] [place] [facility] [address] [id number] [place] [address]- 3763 Jan, [facility] [place] [facility] [address] [id number] [place] [address]- 6465 Jan, [facility] [place] [facility] [address] [id number] [place] [address]- 7271 Jan, [facility] [place] [facility] [address] [id number] [place] [address]- 8396 Jan, [facility] [place] [facility] [address] [id number] [place] [address]- 6769 Jan, [facility] [place] [facility] [address] [id number] [place] [address]- 0547 Jan, [facility] [place] [facility] [address] [id number] [place] [address]- 1625 Jan, [facility] [place] [facility] [address] [id number] [place] [address]- 6457 Jan, [facility] [place] [facility] [address] [id number] [place] [address]- 7971 Jan, [facility] [place] [facility] [address] [id number] [place] [address]- 6834 Jan, [facility] [place] [facility] [address] [id number] [place] [address]- 3486 17 Jan, 2014 [facility] [place] [facility] [address] [id number] [id number] [address] 15 Jan, 2014 [facility] [place] [facility] [address] [id number] [address] Jan, [facility] [place] [facility] [address] [id number] [place] [id number] Jan, [facility] [place] [facility] [address] [id number] [place] [id number] [address] Jan, [facility] [place] [facility] [address] [id number] [place] [address] Jan, [facility] [place] [facility] [address] [id number] [place] [address] Jan, [facility] [place] [facility] [address] [id number] [place] [address] Dec, [facility] [place] [facility] [address] [id number] [place] [address] Dec, [facility] [place] [facility] [address] [id number], [place] [address] Dec, [facility] [place] [facility] [address] [id number] [place] [address] Dec, [facility] [place] [facility] [address] [id number] [place] [address] Dec, [facility] [place] [facility] [address] [id number] [place] [address] Dec, [facility] [place] [facility] [address] [id number], [place] [address] Dec, [facility] [place] [facility] [address] [id number], [place] [address] Nov, [facility] [place] [facility] [address] [id number], [place] [address] Nov, [facility] [place] [facility] [address] [id number] [place] [address] Nov, [facility] [place] [facility] [address] [id number] [place] [address] Nov, [facility] [place] [facility] [address] [id number] [place] [address] 15 Nov, 2013 [facility] [place] [facility] [address] [id number] [place] [address] 15 Nov, 2013 [facility] [place] [facility] [address] [id number] [place] [address] 13 Nov, 2013 [facility] [place] [facility] [address] [id number] [place] [address] Nov, [facility] [place] [facility] [address] [id number] [place] [address]- [address] 13 Nov, 2013 [facility] [place] [facility] [address] [id number] [place] [address]- [address] Nov, [facility] [place] [facility] [address] [id number] [place] [address] 29 Oct, 2013 [facility] [place] [facility] [address] [id number] [place] [address] 29 Oct, 2013 [facility] [place] [facility] [address] [id number] [place] [address] 15 Oct, 2013 [facility] [place] [facility] [address] [id number] [place] [address] 15 Oct, 2013 [facility] [place] [facility] [address] [id number] [place] [address] 15 Oct, 2013 [facility] [place] [facility] [address] [id number] [place] [address] 15 Oct, 2013 [facility] [place] [facility] [address] [id number] [place] [address] 10 Oct, 2013 [facility] [place] [facility] [address] [id number] [place] [address] 10 Oct, 2013 [facility] [place] [facility] [address] [id number] [place] [address] 02 Oct, 2013 [facility] [place] [facility] [address] [id number] [place] [address] Oct, [facility] [place] [facility] [address] [id number] [place] [address]- 7817 Sep, [facility] [place] [facility] [address] [id number] [place] [address] Sep, [facility] [place] [facility] [address] [id number] [place] [address] 9[address] Sep, [facility] [place] [facility] [address] [id number] [place] [address] 4625 Sep, [facility] [place] [facility] [address] [id number] [place] [address] 1821 Sep, [facility] [place] [facility] [address] [id number] [place] [address] 8742 Sep, [facility] [place] [facility] [address] [id number] [place] [address]- 8209 Sep, [facility] [place] [facility] [address] [id number] [place] [address]- 0176 Sep, [facility] [place] [facility] [address] [id number] [place] [address] 2849 Sep, [facility] [place] [facility] [address] [id number] [place] [address]- 0515 Sep, [facility] [place] [facility] [address] [id number] [place] [address]- 2590 Aug, [facility] [place] [facility] [address] [id number] [place] [address] 4908 Aug, [facility] [place] [facility] [address] [id number] [place] [address]- 0561 Aug, [facility] [place] [facility] [address] [id number] [place] [address]- 6093 Aug, [facility] [place] [facility] [address] [id number] [place] [address]- 5819 Aug, [facility] [place] [facility] [address] [id number] [place] [address]- 4928 18 Aug, 2013 [facility] [place] [facility] [address] [id number] [place] [address]- 4858 17 Aug, 2013 [facility] [place] [facility] [address] [id number] [place] [address]- 2941 17 Aug, 2013 [facility] [place] [facility] [address] [id number] [place] [address]- 8462 15 Aug, 2013 [facility] [place] [facility] [address] [id number] [place] [address]- 6203 15 Aug, 2013 [facility] [place] [facility] [address] [id number] [place] [address]- 1103 Aug, [facility] [place] [facility] [address] [id number] [place] [address]- 9333 Aug, [facility] [place] [facility] [address] [id number] [place] [address]- 7277 Jul, [facility] [place] [facility] [address] [id number] [place] [address]- 9909 Jul, [facility] [place] [facility] [address] [id number] [place] [address]- 2084 Jul, [facility] [place] [facility] [address] [id number] [place] [address]- 6859 Jul, [facility] [place] [facility] [address] [id number] [place] [address]- 4157 Jul, [facility] [place] [facility] [address] [id number] [place] [address]- 6187 Jul, [facility] [place] [facility] [address] [id number] [place] [address]- 4776 17 Jul, 2013 [facility] [place] [facility] [address] [id number] [place] [address]- 0740 16 Jul, 2013 [facility] [place] [facility] [address] [id number] [place] [address]- 4156 16 Jul, 2013 [facility] [place] [facility] [address] [id number] [place] [address]- 9724 Jul, [facility] [place] [facility] [address] [id number] [place] [address]- 6497 Jul, [facility] [place] [facility] [address] [id number] [place] [address]- 7902 Jul, [facility] [place] [facility] [address] [id number] [place] [address]- 6750 Jul, [facility] [place] [facility] [address] [id number] [place] [address]- 7498 Jul, [facility] [place] [facility] [address] [id number] [place] [address]- 4977 Jul, [facility] [place] [facility] [address] [id number] [place] [address]- 6747 Jul, [facility] [place] [facility] [address] [id number] [place] [address]- 1451 Jul, [facility] [place] [facility] [address] [id number] [place] [address]- 5609 June, [facility] [place] [facility] [address] [id number] [place] [address]- 6355 June, [facility] [place] [facility] [address] [id number] [place] [address]- 4006 June, [facility] [place] [facility] [address] [id number] [place] [address]- 9487 June, [facility] [place] [facility] [address] [id number] [place] [address]- 4126 June, [facility] [place] [facility] [address] [id number] [place] [address]- 2067 June, [facility] [place] [facility] [address] [id number] [place] [address]- 3268 June, [facility] [place] [facility] [address] [id number] [place] [address]- 9511 June, [facility] [address] [id number] [place] [address]- 7720 June, [facility] [place] [facility] [address] [id number] [place] [address]- 4016 June, [facility] [place] [facility] [address] [id number] [place] [address]- 4127 June, [facility] [place] [facility] [address] [id number] [place] [address]- 6994 June, [facility] [place] [facility] [address] [id number] [place] [address]- 1420 June, [facility] [place] [facility] [address] [id number] [place] [address]- 8872 June, [facility] [place] [facility] [address] [id number] [place] [address]- 0844 June, [facility] [place] [facility] [address] [id number] [place] [address]- 1959 June, [facility] [place] [facility] [address] [id number] [place] [address]- 1137 June, [facility] [place] [facility] [address] [id number] [place] [address]- 7420 June, [facility] [place] [facility] [address] [id number] [place] [address]- 1595 June, [facility] [place] [facility] [address] [id number] [place] [address] 1956 June, [facility] [place] [facility] [address] [id number] [place] [address]- 9972 June, [facility] [place] [facility] [address] [id number] [place] [address]- 7723 June, [facility] [place] [facility] [address] [id number] [place] [address]- 5068 June, [facility] [place] [facility] [address] [id number] [place] [address]- 6057 June, [facility] [address] [id number] [place] [address]- 9280 June, [facility] [address] [id number] [place] [address]- 3855 June, [facility] [address] [id number] [place] [address]- 2132 June, [facility] [address] [id number] [place] [address]- 3191 June, [facility] [address] [id number] [place] [address]- 6364 June, [facility] [address] [id number] [place] [address]- 3124 June, [facility] [address] [id number] [place] [address]- 6617 June, [facility] [address] [id number] [place] [address]- 0009 June, [facility] [address] [id number] [place] [address]- 8793 May, [facility] [address] [id number] [place] [address]- 6564 May, [facility] [place] [facility] [address] [id number] [place] [address]- 5698 May, [facility] [place] [facility] [address] [id number] [place] [address]- 8826 May, [facility] [place] [facility] [address] [id number] [place] [address]- 0203 May, [facility] [place] [facility] [address] [id number] [place] [address]- 9867 May, [facility] [place] [facility] [address] [id number] [place] [address]- 1241 May, [facility] [place] [facility] [address] [id number] [place] [address]- 4870 May, [facility] [place] [facility] [address] [id number] [place] [address]- 2166 May, [facility] [place] [facility] [address] [id number] [place] [address]- 5912 May, [facility] [place] [facility] [address] [id number] [place] [address]- 1879 May, [facility] [place] [facility] [address] [id number] [place] [address]- 9846 May, [facility] [place] [facility] [address] [id number] [place] [address]- 0785 May, [facility] [place] [facility] [address] [id number] [place] [address]- 9802 May, [facility] [place] [facility] [address] [id number] [place] [address]- 8060 May, [facility] [place] [facility] [address] [id number] [place] [address]- 9202 Apr, [facility] [place] [facility] [address] [id number] [place] [address]- 2579 Apr, [facility] [place] [facility] [address] [id number] [place] [address]- 1461 Apr, [facility] [place] [facility] [address] [id number] [place] [address]- 0015 Apr, [facility] [place] [facility] [address] [id number] [place] [address]- 5743 Apr, [facility] [place] [facility] [address] [id number] [place] [address]- 3952 Apr, [facility] [place] [facility] [address] [id number] [place] [address]- 9631 Mar, [facility] [place] [facility] [address] [id number] [place] [address]- 8106 Mar, [facility] [place] [facility] [address] [id number] [place] [address]- 4186 Mar, [facility] [place] [facility] [address] [id number] [place] [address]- 1106 Mar, [facility] [place] [facility] [address] [id number] [place] [address]- 5276 Mar, [facility] [place] [facility] [address] [id number] [place] [address]- 3334 Mar, [facility] [place] [facility] [address] [id number] [place] [address]- 4940 Mar, [facility] [place] [facility] [address] [id number] [place] [address]- 7553 Mar, [facility] [place] [facility] [address] [id number] [place] [address]- 4259 Feb, [facility] [place] [facility] [address] [id number] [place] [address]- 1120 Feb, [facility] [place] [facility] [address] [id number] [place] [address]- 0293 Feb, [facility] [place] [facility] [address] [id number] [place] [address]- 8404 Feb, [facility] [place] [facility] [address] [id number] [place] [address]- 6706 Feb, [facility] [place] [facility] [address] [id number] [place] [address]- 2611 Feb, [facility] [place] [facility] [address] [id number] [place] [address]- 7020 Feb, [facility] [place] [facility] [address] [id number] [place] [address]- 4154 Feb, [facility] [place] [facility] [address] [id number] [place] [address]- 3874 Feb, [facility] [place] [facility] [address] [id number] [place] [address]- 0382 Feb, [facility] [place] [facility] [address] [id number] [place] [address]- 1185 Jan, [facility] [place] [facility] [address] [id number] [place] [address]- 8629 Jan, [facility] [place] [facility] [address] [id number] [place] [address]- 2393 Jan, [facility] [address] [id number] [place] [address]- 3428 Jan, [facility] [place] [facility] [address] [id number] [place] [address]- 3852 Jan, [facility] [address] [id number] [place] [address]- 1576 Jan, [facility] [place] [facility] [address] [id number] [place] [address]- 7087 Jan, [facility] [place] [facility] [address] [id number] [place] [address]- 5977 Jan, [facility] [place] [facility] [address] [id number] [place] [address]- 7309 Dec, [facility] [place] [facility] [address] [id number] [place] [address]- 1734 Dec, [facility] [place] [facility] [address] [id number], [place] [address]- 2119 Dec, [facility] [place] [facility] [address] [id number] [place] [address]- 3867 Dec, [facility] [place] [facility] [address] [id number] [place] [address]- 5653 Dec, [facility] [place] [facility] [address] [id number], [place] [address]- 3875 Dec, [facility] [place] [facility] [address] [id number], [place] [address]- 9755 Dec, [facility] [place] [facility] [address] [id number] [place] [address]- 7983 Dec, [facility] [place] [facility] [address] [id number] [place]753 Nov, [facility] [place] [facility] [address] [id number] [place] [address]- 6243 Nov, [facility] [place] [facility] [address] [id number] [place] [address]- 2023 Nov, [facility] [place] [facility] [address] [id number] [place] [address]- 6475 14 Nov, 2012 [facility] [place] [facility] [address] [id number] [place] [address]- 8681 Nov, [facility] [place] [facility] [address] [id number] [place] [address]- 3454 Nov, [facility] [place] [facility] [address] [id number] [place] [address]- 7025 Nov, [facility] [place] [facility] [address] [id number] [place] [address]- 7521 10 Oct, 2012 [facility] [place] [facility] [address] [id number] [place] [address]- 9584 10 Oct, 2012 [facility] [place] [facility] [address] [id number] [place] [address]- 0580 05 Oct, 2012 [facility] [place] [facility] [address] [id number] [place] [address]- 4121 Sep, [facility] [place] [facility] [address] [id number] [place] [address]- 1844 Sep, [facility] [place] [facility] [address] [id number] [place] [address]- 9012 Sep, [facility] [place] [facility] [address] [id number] [place] [address]- 9872 Sep, [facility] [place] [facility] [address] [id number] [place] [address]- 7368 24 Aug, 2012 [facility] [address] [id number] [place] [address]- 6658 Aug[facility] [address] [id number] [place] [address]- 4122 Aug, [facility] [address] [id number] [place] [address]- 6189 Aug, [facility] [address] [id number] [place] [address]- 8544 Aug, [facility] [address] [id number] [place] [address]- 8065 Jul, [facility] [address] [id number] [place] [address]- 5341 Jul, [facility] [address] [id number] [place] [address]- 3718 Jul, [facility] [address] [id number] [place] [address]- 5231 Jul, [facility] [address] [id number] [place] [address]- 5178 Jul, [facility] [address] [id number] [place] [address]- 4947 June, [facility] [address] [id number] [place] [address]- 6646 June, [facility] [address] [id number] [place] [address]- 8936 June, [facility] [place] [facility] [address] [id number] [place] [address]- 2546 June, [facility] [place] [facility] [address] [id number] [place] [address]- 2546 June, [facility] [place] [facility] [address] [id number] [place] [address]- 9763 May, [facility] [address] [id number] [place] [address]- 0927 22 May, 2012 [facility] [place] [facility] [address] [id number] [place] [address]- 6720 18 May, 2012 [facility] [place] [facility] [address] [id number] [place] [address]- 2788 17 May, 2012 [facility] [place] [facility] [address] [id number] [place] [address]- 2821 16 May, 2012 [facility] [place] [facility] [address] [id number] [place] [address]- 9188 10 May, 2012 [facility] [place] [facility] [address] [id number] [place] [address]- 1050 04 May, 2012 [facility] [place] [facility] [address] [id number] [place] [address]- 0492 19 Apr, 2012 [facility] [place] [facility] [address] [id number] [place] [address]- 1948 11 Apr, 2012 [facility] [place] [facility] [address] [id number] [place] [address]- 8032 08 Apr, 2012 [facility] [place] [facility] [address] [id number] [place] [address]- 4406 26 Mar, 2012 [facility] [place] [facility] [address] [id number] [place] [address]- 2276 25 Mar, 2012 [facility] [place] [facility] [address] [id number], [place] [address]- 3040 20 Mar, 2012 [facility] [place] [facility] [address] [id number] [place] [address]- 7762 19 Mar, 2012 [facility] [place] [facility] [address] [id number] [place] [address]- 4241 Mar, [facility] [place] [facility] [address] [id number] [place] [address]- 0780 Mar, [facility] [place] [facility] [address] [id number] [place] [address]- 9130 07 Mar, 2012 [facility] [address] [id number] [place] [address]- 0796 07 Mar, 2012 [facility] [address] [id number] [place] [address]- 5279 31 Feb, 2012 [facility] [address] [id number] [place] [address]- 5490 29 Feb, 2012 [facility] [address] [id number] [place] [address]- 6794 28 Feb, 2012 [facility] [address] [id number] [place] [address]- 0600 26 Feb, 2012 [facility] [address] [id number] [place] [address]- 2838 18 Feb, 2012 [facility] [address] [id number] [place] [address]- 8574 15 Feb, 2012 [facility] [address] [id number] [place] [address]- 8914 14 Feb, 2012 [facility] [address] [id number] [place] [address]- 8028 Jan, [facility] [address] [id number] [place] [address]- 5349 Jan, [facility] [address] [id number] [place] [address]- 8197 Jan, [facility] [address] [id number] [place] [address] 2549 Jan, [facility] [address] [id number] [place] 2963 Jan, [facility] [address] [id number] [place] [address]- 9920 Jan, [facility] [address] [id number] [id number] 7163 Jan, [facility] [place] [facility] [address] [id number] [place] [address]- 8780 Jan, [facility] [place] [facility] [address] [id number] [place] [address]- 1046 Jan, [facility] [place] [facility] [address] [id number] [place] [address]- 5519 Jan, [facility] [place] [facility] [address] [id number] [place] [address]- 75[address] Jan, [facility] [place] [facility] [address] [id number] [place] [address] Jan, [facility] [place] [facility] [address] [id number] [place] [address] Jan, [facility] [place] [facility] [address] [id number] [place] [address] Jan, [facility] [place] [facility] [address] [id number] [place] [address] Dec, [facility] [place] [facility] [address] [id number] [place] [address] Dec, [facility] [place] [facility] [address] [id number] [place] [address] Dec, [facility] [place] [facility] [address] [id number] [place] [address] Dec, [facility] [place] [facility] [address] [id number], [place] [address] Dec, [facility] [place] [facility] [address] [id number] [place] [address] Dec, [facility] [place] [facility] [address] [id number] [place] [address] Dec, [facility] [place] [facility] [address] [id number] [place] [address] Dec, [facility] [place] [facility] [address] [id number] [place] [address] 13 Dec, 2011 [facility] [place] [facility] [address] [id number] [place] [address]- [address] Dec, [facility] [place] [facility] [address] [id number] [place] [address]- [address] Dec, [facility] [place] [facility] [address] [id number] [place] [address] Dec, [facility] [place] [facility] [address] [id number] [place] [address] Dec, [facility] [place] [facility] [address] [id number] [place] [address] Dec, [facility] [place] [facility] [address] [id number] [place] [address] Dec, [facility] [place] [facility] [address] [id number] [place] [address] Dec, [facility] [place] [facility] [address] [id number] [place] [address] Dec, [facility] [place] [facility] [address] [id number] [place] [address]609 Dec, [facility] [place] [facility] [address] [facility] [id number] [place] [address] Dec, [facility] [place] [facility] [address] [id number] [place] [address] Dec, [facility] [place] [facility] [address] [id number], [place] [address] Nov, [facility] [place] [facility] [address] [id number] [place] [address] Nov, [facility] [place] [facility] [address] [facility] [id number] [place] [address] 267[address] Nov, [facility] [place] [facility] [address] [facility] [id number], [place] [address] Nov, [facility] [place] [facility] [address] [id number] [place] [address] 24 Nov, 2011 [facility] [place] [facility] [address] [id number] [place] [address]- [address]35 24 Nov, 2011 [facility] [place] [facility] [address] [id number] [place] [address] 15 Nov, 2011 [facility] [place] [facility] [address] [id number] [place] [address]- [address] 15 Nov, 2011 [facility] [place] [facility] [address] [id number] [place] [address] 115[address] Nov, [facility] [place] [facility] [address] [id number] [place] [address]88 10 Nov, 2011 [facility] [place] [facility] [address] [id number] [place] [address] Nov, [facility] [place] [facility] [address] [id number] [place] [address] 96[address] Nov, [facility] [place] [facility] [address] [id number] [place] [address] 04 Nov, 2011 [facility] [place] [facility] [address] [id number] [place] [address] 30 Oct, 2011 [facility] [place] [facility] [address] [id number] [place] [address] 27 Sep, 2011 [facility] [place] [facility] [address] [id number] [place] [address] 24 Sep, 2011 [facility] [place] [facility] [address] [id number] [place] [address] 20 Sep, 2011 [facility] [place] [facility] [address] [id number] [place] [address] 2546 11 Sep, 2011 [facility] [place] [facility] [address] [id number] [place] [address] 11 Sep, 2011 [facility] [place] [facility] [address] [id number] [place] [address] 49[address] Sep, [facility] [place] [facility] [address] [id number] [place] [address]- 26[address] Sep, [facility] [place] [facility] [address] [id number] [place] [address]- [address] Sep, [facility] [place] [facility] [address] [id number] [place] [address] Sep, [facility] [place] [facility] [address] [id number] [place] [address] Aug, [facility] [place] [facility] [address] [id number] [place] [address]- 48[address] Aug, [facility] [place] [facility] [address] [id number] [place] [address]- [address] Aug, [facility] [place] [facility] [address] [id number] [place] [address]- [address] Jul, [facility] [place] [facility] [address] [id number] [place] [address]- 8[address] Jul, [facility] [place] [facility] [address] [id number] [place] [address]- [address] Jul, [facility] [place] [facility] [address] [id number] [place] [address]- 8[address] Jul, [facility] [place] [facility] [address] [id number] [place] [address] 135[address] June, [facility] [place] [facility] [address] [id number] [place] [address] June, [facility] [place] [facility] [address] [id number] [place] [address]- 100[address] June, [facility] [place] [facility] [address] [id number] [place] [address]- [address] June, [facility] [place] [facility] [address] [id number] [place] [address] 2045 June, [facility] [place] [facility] [address] [id number] [place] [address]- [address] June, [facility] [address] [id number] [place] [address]- [address] 30 May, 2011 [facility] [address] [id number] [place] [address]- 9683 May, [facility] [address] [id number] [place] [address]- 3815 May, [facility] [address] [id number] [place] [address]- [address] 24 May, 2011 [facility] [address] [id number] [place] [address]- [address] May, [facility] [address] [id number] [place] [address]- [address] May, [facility] [address] [id number] [place] [address]- 5770 May, [facility] [address] [id number] [place] [id number] May, [facility] [address] [id number] [place] [address] May, [facility] [address] [id number] [place] [address] Apr, [facility] [address] [id number] [place] [address] Mar, [facility] [address] [id number] [place] [address] Mar, [facility] [place] [facility] [address] [id number] [place] Mar, [facility] [address] [id number] [place] [address] Mar, [facility] [place] [facility] [address] [id number] [place] [address] Feb, [facility] [place] [facility] [address] [id number] [place] [address] Feb, [facility] [place] [facility] [address] [id number] [place] [address] Feb, [facility] [place] [facility] [address] [id number] [place] [address] Jan, [facility] [place] [facility] [address] [id number] [place] [address] Jan, [facility] [place] [facility] [address] [id number] [place] [address] 14 Jan, 2011 [facility] [place] [facility] [address] [id number] [place] [address] 29 Dec, 2010 [facility] [place] [facility] [address] [id number] [place] [address] 28 Dec, 2010 [facility] [place] [facility] [address] [id number] [place] [address] 16 Dec, 2010 [facility] [place] [facility] [address] [id number] [place] [address] 15 Dec, 2010 [facility] [place] [facility] [address] [id number] [address] 31 Nov, 2010 [facility] [place] [facility] [address] [id number] [place] [address] 31 Nov, 2010 [facility] [place] [facility] [address] [id number], [place] [address] 19 Nov, 2010 [facility] [place] [facility] [address] [id number] [place] [address] 18 Nov, 2010 [facility] [place] [facility] [address] [id number], [place] [address] 13 Oct, 2010 [facility] [place] [facility] [address] [id number] [place] [address] 20 Jul, 2010 [facility] [place] [facility] [address] [id number] [place] [address] 13 Jan, 2010 [facility] [place] [facility] [address] [id number] [place] [address] 30 Dec, 2009 [facility] [place] [facility] [address] [id number] [place] [address] Dec, [facility] [place] [facility] [address] [id number] [place] [address] Dec, [facility] [place] [facility] [address] [id number] [place] [address] Dec, [facility] [place] [facility] [address] [id number] [place] [address] Dec, [facility] [place] [facility] [address] [id number] [place] [address] Dec, [facility] [place] [facility] [address] [id number] [place] [address] Nov, [facility] [place] [facility] [address] [id number] [place] [address] Nov, [facility] [place] [facility] [address] [id number] [place] [address] Nov, [facility] [place] [facility] [address] [facility] [id number] [place] [address] Apr, [facility] [place] [facility] [address] [id number] [place] [address] 17 Apr, 2009 [facility] [place] [facility] [address] [id number] [place] [address]46 29 Jan, 2009 [facility] [place] [facility] [address] [id number] [place] [address]46 28 Jan, 2009 [facility] [place] [facility] [address] [facility] [id number] [place] [address] 23 Jan, 2009 [facility] [place] [facility] [address] [facility] [id number] [place] [address] 17 Jan, 2009 [facility] [place] [facility] [address] [address] Jan, [facility] [address], [place] [address] Jan, [facility] [address], [place] [address] Dec, [facility] [id number] [place] [address] Dec, [facility] [address] [facility] [id number], [place] [address] Dec, [facility] [id number] [place] [address] Dec, [facility] [address], [place] [address] Dec, [facility] [id number] [place] [address] Dec, [facility] [address] [address] Nov, [facility] [address], [place] [address] Nov, [facility] [address], [place] [address] Aug, [facility] [address], [place] [address] Jul, [facility] [address] [id number], [place] [address] June, [facility] [address], [place] [address] Apr, IMMUNIZATIONS No Known Immunizations SOCIAL HISTORY Never Assessed REASON FOR VISIT PLAN OF CARE VITAL SIGNS MEDICATIONS Medication [...] of loosened hardware/hip replacement ( [facility] in [place]) 09/2008 Hospitalization History in pt rehab s/p left hip repair 09/2008-11/2008 Hospitalization History [facility] 07/2009
--- OUTSIDE RECORDS SUMMARY | 2017-10-26 13:58 | XMS REPORT ---
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 Active 812729688 Problem Panic attacks F41.0 Active 610529161 Problem Seasonal allergic rhinitis due to other allergic trigger J30.89 Active 043610633 Problem Dementia without behavioral disturbance, unspecified dementia type F03.90 Active 26005766 Problem Generalized 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
--- OUTSIDE RECORDS SUMMARY | 2017-10-26 13:58 | XMS REPORT ---
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 634231997 Problem Panic attacks F41.0 Active 504399193 Problem Seasonal allergic rhinitis due to other allergic trigger J30.89 Active 583159875 Problem Dementia without behavioral disturbance, unspecified dementia type F03.90 Active 53423532 Problem Generalized osteoarthritis M15.9 Active 486453799 Problem Anxiety disorder, unspecified F41.9 Active 624820686 Problem Generalized anxiety disorder F41.1 Active 075349633 ALLERGIES No Known Allergies SOCIAL HISTORY No smoking Hx information available PLAN OF CARE VITAL SIGNS MEDICATIONS Medication Instructions Dosage Frequency Start Date End Date Duration Status Meloxicam 7.5 MG orally 2 times a day 1 tablet 12h 30 Active RESULTS No Results PROCEDURES No Known procedures IMMUNIZATIONS No Known Immunizations
--- OUTSIDE RECORDS SUMMARY | 2017-10-26 13:58 | XMS REPORT ---
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 Unknown Non Drug Allergy Feb, Unknown SOCIAL HISTORY No smoking Hx information available PLAN OF CARE Activity Details Follow Up prn Reason: VITAL SIGNS Height 63 in 2016-03-07 Weight 132.2 lbs 2016-03-07 Temperature 98.0 degrees Fahrenheit 2016-03-07 Heart Rate 90 bpm 2016-03-07 Respiratory Rate 18 2016-03-07 BMI 23.42 kg/m2 2016-03-07 Blood pressure systolic 124 mmHg 2016-03-07 Blood pressure diastolic 70 mmHg 2016-03-07 MEDICATIONS Medication Instructions Dosage Frequency Start Date End Date Duration Status Artificial Tear Solution Ophthalmic 2 times a day 2 drops as needed 12h Active Furosemide 20 mg Orally Once a day 1 tablet 24h 30 Active Lorazepam 2 MG Orally. must attend appt for further refills 3 times a day 1 tablet 8h Active Trazodone HCl 100 MG TAKE ONE TABLET BY MOUTH AT BEDTIME Mar, 30 Active Clonazepam 0.5 MG TAKE ONE TABLET BY MOUTH TWICE DAILY 28 Active Meloxicam 7.5 MG orally 2 times a day 1 tablet 12h 30 Active Txsbjubo-Skkqfv-LJ-Thonzonium 3.3-3-10-0.5 MG/ML Otic Three times a day 5 drops into affected ear 8h 28 Feb, 2015 10 day(s) Active Duloxetine HCl 60 MG TAKE ONE CAPSULE BY MOUTH TWICE DAILY 30 Active Famotidine 20 MG TAKE ONE TABLET BY MOUTH TWICE DAILY 90 Active Macrobid 100 MG Orally every 12 hrs 1 capsule with food 12h 12 Feb, 2016 Feb, 7 day(s) Active MiraLax 17 gm/dose Orally Once a day as needed 17 grams mixed in 8 oz of water or juice Active BusPIRone HCl 5 MG TAKE ONE TABLET BY MOUTH TWICE DAILY 30 Active Acetaminophen 500 MG Orally three times per day 2 tablets Active Klonopin 0.5 MG Orally. Twice a day 1 tablet 12h Aug, 28 days Active DuoNeb 0.5-2.5 (3) MG/3ML USE ONE VIAL IN NEBULIZER TWICE DAILY 30 Active Ferrous Sulfate 325 (65 Fe) MG TAKE ONE TABLET BY MOUTH DAILY 90 Active RESULTS Name Result Date Reference Range UA LONG DIP (IN HOUSE) 2016-03-07 Lot # [id number] Exp date 2017 Clarity clear Color yellow Odor none GLU negative YADIRA negative KET negative SG 1.020 BLO negative pH 7.0 Protein trace URO 0.2 NIT negative TATIANA trace Lot # [id number] Exp date 2017 03 PROCEDURES Procedure Date Ordered Related Diagnosis Body Site URINALYSIS, AUTO, W/O SCOPE Mar 07, 2016 [facility] VISIT ESTABLISHED PATIENT Mar 07, 2016 Office Visit, Est Pt., Level 3 Mar 07, 2016 IMMUNIZATIONS No Known Immunizations
--- OUTSIDE RECORDS SUMMARY | 2017-10-26 13:58 | XMS REPORT ---
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 750893056 Problem Panic attacks F41.0 Active 949784388 Problem Seasonal allergic rhinitis due to other allergic trigger J30.89 Active 794558720 Problem Dementia without behavioral disturbance, unspecified dementia type F03.90 Active 77610026 Problem Generalized osteoarthritis M15.9 Active 296630101 Problem Anxiety disorder, unspecified F41.9 Active 470091251 Problem Generalized anxiety disorder F41.1 Active 001422232 ALLERGIES Unknown Allergies SOCIAL HISTORY No smoking Hx information available PLAN OF CARE VITAL SIGNS MEDICATIONS Medication Instructions Dosage Frequency Start Date End Date Duration Status Famotidine 20 mg Orally Twice a day 1 tablet at bedtime 12h 06 Mar, 2016 30 day(s) Active RESULTS No Results PROCEDURES No Known procedures IMMUNIZATIONS No Known Immunizations
--- OUTSIDE RECORDS SUMMARY | 2017-10-26 13:58 | XMS REPORT ---
Author Author KONG BABAK [facility] Address [address] [place] [address] Care Team Providers Care Geospatial Specialist Name Role Phone KONGPROMISE KIMHANY Unavailable PROBLEMS Type Condition ICD9-CM Code TYW02-HG Code Onset Dates Condition Status SNOMED Code Problem Generalized anxiety disorder F41.1 Active 677596730 Problem Seasonal allergic rhinitis due to other allergic trigger J30.89 Active 181294778 Problem Anxiety disorder, unspecified F41.9 Active 869967706 Problem 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 Active 841388488 Problem Meningioma D32.9 Active 263355632 Problem Generalized osteoarthritis M15.9 Active 962280748 Problem Dementia without behavioral disturbance, unspecified dementia type F03.90 Active 01740945 Problem Debility R53.81 Active 12378910 Problem At risk for falls Z91.81 Active 608230540 Problem Other chronic pain G89.29 Active 21793988 Problem Panic attacks F41.0 Active 342807116 Problem Acute drug withdrawal syndrome without complication F19.230 Active 940617947 Problem Anxiety F41.9 Active 67746103 ALLERGIES No Known Allergies ENCOUNTERS Encounter Location Date Diagnosis [place] [id number] [address] Aug, [facility] [id number] [place] [address] 44721- 7936 Jul, Dementia without behavioral disturbance, unspecified dementia type F03.90 [facility] [id number] [place] [address] 95616- 4345 Jul, 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 ; Generalized osteoarthritis M15.9 ; Other chronic pain G89.29 ; At risk for falls Z91.81 and Debility R53.81 [facility] [id number] [place] [address] 26511- 1887 Jul, [facility] [id number] [place] [address] 97188- 9905 June, Dementia without behavioral disturbance, unspecified dementia type F03.90 [facility] [id number] [place] [address] 95410- 1469 June, [facility] [id number] [place] [address] 37869- 5591 June, [facility] [id number] [place] [address] 50434- 9118 June, [facility] [address] 56398- 6873 June, Dementia without behavioral disturbance, unspecified dementia type F03.90 and Anxiety F41.9 [facility] [id number] [place] [address] 68322- 8235 May, [facility] [id number] [place] [address] 01649- 3197 May, [facility] [id number] [place] [address] 39223 -4039 May, Anxiety F41.9 ; Acute drug withdrawal syndrome without complication F19.230 and Abdominal pain, unspecified abdominal location R10.9 [facility] [id number] [place] [address] 28649- 7657 May, Panic attacks F41.0 [facility] [id number] [place] [address] 39514- 1998 May, Other chronic pain G89.29 and Generalized anxiety disorder F41.1 [facility] [id number] [place] [address] 89413- 3764 Apr, Housing problems Z59.9 and Panic attacks F41.0 [facility] [id number] [place] [address] 80723- 4774 Mar, Panic attacks F41.0 [place] [id number] [place] [address] 06777- 6466 Feb, [facility] [id number] [place] [address] 84915- 2982 Feb, Panic attacks F41.0 [facility] [address] [place] [address] 84891- 3832 Feb, Pain in right knee M25.561 ; Pain in left knee M25.562 ; Other chronic pain G89.29 ; Housing problems Z59.9 ; Dementia without behavioral disturbance, unspecified dementia type F03.90 ; Generalized anxiety disorder F41.1 and Advance directive declined by patient Z78.9 [place] [facility] [id number] [place] [address] 08552- 8209 Jan, Panic attacks F41.0 [facility] [id number] [place] [address] 24410- 1610 Jan, Panic attacks F41.0 [facility] [id number] [place] [address] 29527- 1328 Dec, Panic attacks F41.0 [facility] [id number] [place] [address] 66921 -2577 Nov, Allergic contact dermatitis due to cosmetics L23.2 [place] [id number] [place] [address] 84527- 6271 Nov, Panic attacks F41.0 [facility] [id number] [place] [address] 20519- 2376 Oct, Panic attacks F41.0 [place] [id number] [place] [address] 69593- 3172 Sep, Panic attacks F41.0 ; Insect bite, initial encounter W57.XXXA and 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 [facility] [id number] [place] [address] 97011- 4560 Sep, [place] [id number] [place] [address]- 5890 Aug, Generalized anxiety disorder F41.1 [facility] [id number] [place] [address] 70230- 7626 Jul, [facility] [id number] [place] [address] 73172 -2322 June, Seasonal allergic rhinitis due to other allergic trigger J30.89 [facility] [id number] [place] [address] 84942- 7769 June, [facility] [id number] [place] [address] 44114- 1371 June, [facility] [id number] [place] [address] 04118 -1440 June, Dysuria R30.0 and RLQ abdominal pain R10.31 [facility] [id number] [place] [address] 50289- 7634 May, Generalized anxiety disorder F41.1 ; Generalized osteoarthritis M15.9 and Dementia without behavioral disturbance, unspecified dementia type F03.90 [facility] [id number] [place] [address] 16325- 9814 May, [facility] [id number] [place] [address] 08819- 9777 May, [facility] [id number] [place] [address] 11065- 9215 May, [facility] [id number] [place] [address] 25600- 3469 Apr, [facility] [id number] [place] [address] 24904- 4987 Apr, Generalized anxiety disorder F41.1 [facility] [id number] [place] [address] 62001- 2620 Apr, [facility] [id number] [place] [address] 26935- 5393 Apr, [facility] [address] [address]- 8157 Apr, [facility] [id number] [place] [address] 54281- 6772 Apr, Generalized anxiety disorder F41.1 [facility] [id number] [place] [address] 33702- 7078 Mar, [facility] [id number] [place] [address] 75135- 9472 Mar, [facility] [id number] [place] [address] 05480- 0785 Mar, [facility] [id number] [place] [address] 09563- 2532 Mar, [facility] [id number] [place] [address] 99845- 0776 Mar, Generalized anxiety disorder F41.1 [facility] [address] [place] [address] 77127- 7230 Feb, Anxiety disorder, unspecified F41.9 [facility] [address] [place] [address] 17782- 9908 Feb, [facility] [address] [address]- 0054 Feb, [facility] [address] [address]- 1691 Feb, [facility] [address] [address] Feb, Urinary frequency R35.0 and Acute cystitis without hematuria N30.00 [facility] [address] [address]- 5571 Feb, [facility] [address] [address]- 6063 Jan, [facility] [id number] [address]- 1526 Jan, [facility] [id number] [place] [address]- 3539 Dec, [facility] [id number] [place] [address]- 8095 Dec, [facility] [id number] [place] [address], [place] [address]- 9378 Dec, Edema, unspecified type R60.9 [facility] [id number] [place] [address]- 0329 Dec, [facility] [id number] [place] [address] 74194- 7266 Dec, [facility] [id number] [place] [address]- 4797 30 Oct, 2015 Generalized anxiety disorder F41.1 [facility] [address] [place] [address]- 9578 20 Oct, 2015 [facility] [id number] [place] [address]- 7719 16 Oct, 2015 [facility] [id number] [place] [address]- 3373 15 Oct, 2015 [facility] [address] [address]- 6548 06 Oct, 2015 [facility] [address] [address]- 0229 Aug, Anxiety disorder, unspecified F41.9 [facility] [address] [address]- 0114 Jul, Anxiety disorder, unspecified F41.9 [facility] [address] [address]- 8920 Jul, Generalized anxiety disorder F41.1 [facility] [address] [address]- 2342 Jul, [facility] [address] [address]- 9196 June, [facility] [address] [address]- 6033 June, [facility] [id number] [place] [address] 53158- 7943 June, [facility] [id number] [place] [address] 86068- 9412 June, [facility] [id number] [place] [address] 17081- 1986 May, [facility] [address] [address] -[address]01 May, Dementia without behavioral disturbance, unspecified dementia type F03.90 and Generalized osteoarthritis M15.9 [facility] [address] [address]- 6225 May, Generalized osteoarthritis M15.9 and 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 [facility] [address] [address]- 9677 Apr, [facility] [address] [address]- 3018 Apr, [facility] [address] [address]- 4427 Apr, [facility] [address] [address]- 9536 Mar, [facility] [id number] [place] [address] 90837- 1278 Mar, [facility] [address] [address]- 9225 Mar, Generalized anxiety disorder F41.1 [facility] [address] [address]212- 5845 Feb, Other infective acute otitis externa of right ear H60.[address] 8[address]01- 3641 Dec, Dysuria R30.0 ; Generalized osteoarthritis M15.9 and Gastroesophageal reflux disease, esophagitis presence not specified K21.[address] 18290- 6640 Dec, [place] [address] 61710- 6858 Dec, Generalized anxiety disorder F41.1 ; Encounter for immunization Z23 and Dementia F03.[address] 72008- 0109 Nov, [address] 20222- 7973 Oct, [address] 97545- 8896 Oct, 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 ; Chronic pain 338.29 ; Anxiety 300.00 and Dementia 294.20 [place] [id number] [place] [address] 76539- 3153 Oct, [place] [id number] [place] [address] 10327- 5713 Aug, Generalized anxiety disorder 300.02 and Dementia 294.20 [place] [id number] [place] [address] 73382- 5045 Aug, [address] 43971- 9940 Aug, Anxiety 300.00 and Chronic pain 338.29 [place] [id number] [place] [address] 13622- 7195 Jul, [address] 11625- 1937 Jul, [facility] [id number] [place] [address]- 6080 June, [facility] [address] [place] [address]- 7736 June, Anxiety, generalized 300.02 ; Dementia 294.20 and No condition on [place] II V71.09 [facility] [address] [id number] [place] [address]- 1706 May, [facility] [address] [id number] [place] [address]- 2366 May, [facility] [address] [place] [address]- 7736 Apr, [facility] [address] [place] [address]- 6836 Apr, [facility] [address]100[facility] [place] [address]- 2504 Apr, [facility] [id number] [place] [address]- 0827 Apr, [facility] [address] [place] [address]- 0458 Apr, [facility] [id number] [place] [address]- 3906 Apr, [facility] [id number] [place] [address]- 9732 Apr, [facility] [address] [id number] [address]- 7856 Apr, [facility] [id number] [place] [address]- 8906 Apr, [facility] [address] [id number] [place] [address]- 2546 Apr, [facility] [address] [address]- 1225 Apr, [facility] [place] [facility] [address] [id number] [place] [address]- 2457 Apr, [facility] [place] [facility] [address] [id number] [place] [address]- 7305 Apr, [facility] [place] [facility] [address] [id number] [place] [address]- 2238 Apr, [facility] [place] [facility] [address] [id number] [place] [address]- 0745 Apr, [facility] [place] [facility] [address] [id number] [place] [address]- 9596 Apr, [facility] [place] [facility] [address] [id number] [place] [address]- 3694 Mar, 2014 [facility] [place] [facility] [address] [id number] [place] [address]- 3405 Mar, 2014 [facility] [place] [facility] [address] [id number] [place] [address]- 2581 Mar, 2014 [facility] [place] [facility] [address] [id number] [place] [address]- 0405 Mar, 2014 [facility] [place] [facility] [address] [id number] [place] [address]- 4259 Mar, 2014 [facility] [place] [facility] [address] [id number] [place] [address]- 4213 Mar, 2014 [facility] [place] [facility] [address] [id number] [place] [address]- 8796 Mar, 2014 [facility] [place] [facility] [address] [id number] [place] [address]- 9547 Mar, 2014 [facility] [place] [facility] [address] [id number] [place] [address]- 7055 Mar, 2014 [facility] [place] [facility] [address] [id number] [place] [address]- 9383 Mar, 2014 [facility] [place] [facility] [address] [id number] [place] [address]- 3596 18 Mar, 2014 [facility] [place] [facility] [address] [id number] [place] [address]- 7960 18 Mar, 2014 [facility] [place] [facility] [address] [id number] [place] [address]- 3913 17 Mar, 2014 [facility] [place] [facility] [address] [id number] [place] [address]- 3415 17 Mar, 2014 [facility] [place] [facility] [address] [id number] [place] [address]- 1464 17 Mar, 2014 [facility] [place] [facility] [address] [id number] [place] [address]- 2900 17 Mar, 2014 [facility] [place] [facility] [address] [id number] [place] [address]- 5171 13 Mar, 2014 [facility] [place] [facility] [address] [id number] [place] [address]- 8208 13 Mar, 2014 [facility] [place] [facility] [address] [id number] [place] [address]- 0841 13 Mar, 2014 [facility] [place] [facility] [address] [id number] [place] [address]- 1620 13 Mar, 2014 [facility] [place] [facility] [address] [id number] [place] [address]- 0426 12 Mar, 2014 [facility] [place] [facility] [address] [id number] [place] [address]- 254 12 Mar, 2014 [facility] [place] [facility] [address] [id number] [place] [address]- 1482 10 Mar, 2014 [facility] [place] [facility] [address] [id number] [place] [address]- 0772 10 Mar, 2014 [facility] [place] [facility] [address] [id number] [place] [address]- 6808 03 Mar, 2014 [facility] [place] [facility] [address] [id number] [place] [address]- 4176 Mar, [facility] [address] [id number] [place] [address]- 1383 Feb, [facility] [place] [facility] [address] [id number] [place] [address]- 8846 Feb, [facility] [place] [facility] [address] [id number] [place] [address]- 2040 Feb, [facility] [place] [facility] [address] [id number] [place] [address]- 6115 Feb, [facility] [place] [facility] [address] [id number] [place] [address]- 7492 Feb, [facility] [place] [facility] [address] [id number] [place] [address]- 6492 Feb, [facility] [place] [facility] [address] [id number] [place] [address]- 2451 Feb, [facility] [address] [id number] [place] [address]- 0291 Feb, [facility] [place] [facility] [address] [id number] [place] [address]- 8799 Feb, [facility] [place] [facility] [address] [id number] [place] [address]- 7609 Feb, [facility] [place] [facility] [address] [id number] [place] [address]- 7390 Feb, [facility] [place] [facility] [address] [id number] [place] [address]- 3683 Feb, [facility] [place] [facility] [address] [id number] [place] [address]- 6716 Feb, [facility] [place] [facility] [address] [id number] [place] [address]- 5066 Feb, [facility] [place] [facility] [address] [id number] [place] [address]- 5081 Feb, [facility] [place] [facility] [address] [id number] [place] [address]- 7961 Jan, [facility] [place] [facility] [address] [id number] [place] [address]- 7406 Jan, [facility] [place] [facility] [address] [id number] [place] [address]- 9980 Jan, [facility] [place] [facility] [address] [id number] [place] [address]- 2417 Jan, [facility] [place] [facility] [address] [id number] [place] [address]- 5629 Jan, [facility] [place] [facility] [address] [id number] [place] [address]- 1477 Jan, [facility] [place] [facility] [address] [id number] [place] [address]- 7526 Jan, [facility] [place] [facility] [address] [id number] [place] [address]- 6150 Jan, [facility] [place] [facility] [address] [id number] [place] [address]- 1419 Jan, [facility] [place] [facility] [address] [id number] [place] [address]- 4404 Jan, [facility] [place] [facility] [address] [id number] [place] [address] Jan, [facility] [place] [facility] [address] [id number] [place] [address] Jan, [facility] [place] [facility] [address] [id number] [place] [address] Jan, [facility] [place] [facility] [address] [id number] [place] [address] 17 Jan, 2014 [facility] [place] [facility] [address] [id number] [place] 15 Jan, 2014 [facility] [place] [facility] [address] [id number] [place] [address] Jan, [facility] [place] [facility] [address] [id number] [place] [id number] Jan, [facility] [place] [facility] [address] [id number] [place] [address] Jan, [facility] [place] [facility] [address] [id number] [place] [address] Jan, [facility] [place] [facility] [address] [id number] [place] [address] Jan, [facility] [place] [facility] [address] [id number] [place] [address] Dec, [facility] [place] [facility] [address] [id number] [place] [address] Dec, [facility] [place] [facility] [address] [id number] [address] Dec, [facility] [place] [facility] [address] [id number] [place] [address] Dec, [facility] [place] [facility] [address] [id number] [place] [address] Dec, [facility] [place] [facility] [address] [id number] [place] [address] Dec, [facility] [place] [facility] [address] [id number], [place] [address] Dec, [facility] [place] [facility] [address] [id number], [place] [address] Nov, [facility] [place] [facility] [address] [id number], [place] [address] Nov, [facility] [place] [facility] [address] [id number] [place] [address] Nov, [facility] [place] [facility] [address] [id number], [place] [address] Nov, [facility] [place] [facility] [address] [id number] [place] [address] 15 Nov, 2013 [facility] [place] [facility] [address] [id number] [place] [address] 15 Nov, 2013 [facility] [place] [facility] [address] [id number] [place] [address] 13 Nov, 2013 [facility] [place] [facility] [address] [id number] [place] [address]- [address] 13 Nov, 2013 [facility] [place] [facility] [address] [id number] [place] [address]- [address] 13 Nov, 2013 [facility] [place] [facility] [address] [id number] [place] [address] Nov, [facility] [place] [facility] [address] [id number] [place] [address] 29 Oct, 2013 [facility] [place] [facility] [address] [id number] [place] [address] 29 Oct, 2013 [facility] [place] [facility] [address] [id number] [place] [address] 15 Oct, 2013 [facility] [place] [facility] [address] [id number] [place] [address] 15 Oct, 2013 [facility] [place] [facility] [address] [id number] [place] [address] 15 Oct, 2013 [facility] [place] [facility] [address] [id number] [place] [address] 15 Oct, 2013 [facility] [place] [facility] [address] [id number] [place] [address] 10 Oct, 2013 [facility] [place] [facility] [address] [id number] [place] [address] 10 Oct, 2013 [facility] [place] [facility] [address] [id number] [place] [address] 02 Sep, 2013 [facility] [place] [facility] [address] [id number] [place] [address] Oct, [facility] [place] [facility] [address] [id number] [place] [address] Sep, [facility] [place] [facility] [address] [id number] [place] [address] Sep, [facility] [place] [facility] [address] [id number] [place] [address] Sep, [facility] [place] [facility] [address] [id number] [place] [address] Sep, [facility] [place] [facility] [address] [id number] [place] [address] Sep, [facility] [place] [facility] [address] [id number] [place] [address]- 5633 Sep, [facility] [place] [facility] [address] [id number] [place] [address] Sep, [facility] [place] [facility] [address] [id number] [place] [address] 72[address] Sep, [facility] [place] [facility] [address] [id number] [place] [address] 7764 Sep, [facility] [place] [facility] [address] [id number] [place] [address]- 2535 Sep, [facility] [place] [facility] [address] [id number] [place] [address]- 0231 Aug, [facility] [place] [facility] [address] [id number] [place] [address]- 3569 Aug, [facility] [place] [facility] [address] [id number] [place] [address]- 9399 Aug, [facility] [place] [facility] [address] [id number] [place] [address]- 7812 Aug, [facility] [place] [facility] [address] [id number] [place] [address] 1971 Aug, [facility] [place] [facility] [address] [id number] [place] [address]- 4992 18 Aug, 2013 [facility] [place] [facility] [address] [id number] [place] [address]- 8620 17 Aug, 2013 [facility] [place] [facility] [address] [id number] [place] [address]- 0176 17 Aug, 2013 [facility] [place] [facility] [address] [id number] [place] [address]- 8506 15 Aug, 2013 [facility] [place] [facility] [address] [id number] [place] [address]- 1910 15 Aug, 2013 [facility] [place] [facility] [address] [id number] [place] [address]- 4781 Aug, [facility] [place] [facility] [address] [id number] [place] [address]- 7392 Aug, [facility] [place] [facility] [address] [id number] [place] [address]- 7854 Jul, [facility] [place] [facility] [address] [id number] [place] [address]- 3730 23 Jul, 2013 [facility] [place] [facility] [address] [id number] [place] [address]- 7404 Jul, [facility] [place] [facility] [address] [id number] [place] [address]- 3653 Jul, [facility] [place] [facility] [address] [id number] [place] [address]- 2606 Jul, [facility] [place] [facility] [address] [id number] [place] [address]- 0275 Jul, [facility] [place] [facility] [address] [id number] [place] [address]- 6957 17 Jul, 2013 [facility] [place] [facility] [address] [id number] [place] [address]- 6795 16 Jul, 2013 [facility] [place] [facility] [address] [id number] [place] [address]- 8035 16 Jul, 2013 [facility] [place] [facility] [address] [id number] [place] [address]- 9543 Jul, [facility] [place] [facility] [address] [id number] [place] [address]- 5754 Jul, [facility] [place] [facility] [address] [id number] [place] [address]- 3095 Jul, [facility] [place] [facility] [address] [id number] [place] [address]- 4987 Jul, [facility] [place] [facility] [address] [id number] [place] [address]- 0559 Jul, [facility] [place] [facility] [address] [id number] [place] [address]- 0997 Jul, [facility] [place] [facility] [address] [id number] [place] [address]- 6521 Jul, [facility] [place] [facility] [address] [id number] [place] [address]- 1828 Jul, [facility] [place] [facility] [address] [id number] [place] [address]- 5390 June, [facility] [place] [facility] [address] [id number] [place] [address]- 4693 June, [facility] [place] [facility] [address] [id number] [place] [address]- 1115 June, [facility] [place] [facility] [address] [id number] [place] [address]- 5089 June, [facility] [place] [facility] [address] [id number] [place] [address]- 6525 June, [facility] [place] [facility] [address] [id number] [place] [address]- 6671 June, [facility] [place] [facility] [address] [id number] [place] [address]- 0859 June, [facility] [place] [facility] [address] [id number] [place] [address]- 0962 June, [facility] [address] [id number] [place] [address]- 3066 June, [facility] [place] [facility] [address] [id number] [place] [address]- 0347 June, [facility] [place] [facility] [address] [id number] [place] [address]- 6634 June, [facility] [place] [facility] [address] [id number] [place] [address]- 7190 June, [facility] [place] [facility] [address] [id number] [place] [address]- 7077 June, [facility] [place] [facility] [address] [id number] [place] [address]- 1041 June, [facility] [place] [facility] [address] [id number] [place] [address]- 2595 June, [facility] [place] [facility] [address] [id number] [place] [address]- 7402 June, [facility] [place] [facility] [address] [id number] [place] [address]- 7791 June, [facility] [place] [facility] [address] [id number] [place] [address]- 4123 June, [facility] [place] [facility] [address] [id number] [place] [address]- 0865 June, [facility] [place] [facility] [address] [id number] [place] [address]- 9845 June, [facility] [place] [facility] [address] [id number] [place] [address]- 6021 June, [facility] [place] [facility] [address] [id number] [place] [address]- 4165 June, [facility] [place] [facility] [address] [id number] [place] [address]- 4519 June, [facility] [place] [facility] [address] [id number] [place] [address]- 7080 June, [facility] [address] [id number] [place] [address]- 2354 June, [facility] [address] [id number] [place] [address]- 8232 June, [facility] [address] [id number] [place] [address]- 3766 June, [facility] [address] [id number] [place] [address]- 2126 June, [facility] [address] [id number] [place] [address]- 3293 June, [facility] [address] [id number] [place] [address]- 0304 June, [facility] [address] [id number] [place] [address]- 5979 June, [facility] [address] [id number] [place] [address]- 4582 June, [facility] [address] [id number] [place] [address]- 3630 May, [facility] [address] [id number] [place] [address]- 9784 May, [facility] [place] [facility] [address] [id number] [place] [address]- 5388 May, [facility] [address] [id number] [place] [address]- 7719 May, [facility] [place] [facility] [address] [id number] [place] [address]- 2891 May, [facility] [place] [facility] [address] [id number] [place] [address]- 5008 May, [facility] [place] [facility] [address] [id number] [place] [address]- 6732 May, [facility] [place] [facility] [address] [id number] [place] [address]- 4963 May, [facility] [place] [facility] [address] [id number] [place] [address]- 3534 May, [facility] [place] [facility] [address] [id number] [place] [address]- 6189 May, [facility] [place] [facility] [address] [id number] [place] [address]- 7804 May, [facility] [place] [facility] [address] [id number] [place] [address]- 7586 May, [facility] [place] [facility] [address] [id number] [place] [address]- 7683 May, [facility] [place] [facility] [address] [id number] [place] [address]- 5088 May, [facility] [place] [facility] [address] [id number] [place] [address]- 2834 May, [facility] [place] [facility] [address] [id number] [place] [address]- 8896 Apr, [facility] [place] [facility] [address] [id number] [place] [address]- 7416 Apr, [facility] [place] [facility] [address] [id number] [place] [address]- 7519 Apr, [facility] [place] [facility] [address] [id number] [address]- 7922 Apr, [facility] [place] [facility] [address] [id number] [place] [address]- 5145 Apr, [facility] [place] [facility] [address] [id number] [place] [address]- 4702 Apr, [facility] [place] [facility] [address] [id number] [place] [address]- 4487 Mar, [facility] [place] [facility] [address] [id number], [place] [address]- 2323 Mar, [facility] [place] [facility] [address] [id number] [place] [address]- 1716 Mar, [facility] [place] [facility] [address] [id number] [place] [address]- 6686 Mar, [facility] [place] [facility] [address] [id number] [place] [address]- 1836 Mar, [facility] [place] [facility] [address] [id number] [place] [address]- 7628 Mar, [facility] [place] [facility] [address] [id number] [place] [address]- 5284 Mar, [facility] [place] [facility] [address] [id number] [place] [address]- 6755 Mar, [facility] [place] [facility] [address] [id number] [place] [address]- 3305 Feb, [facility] [place] [facility] [address] [id number] [place] [address]- 5482 Feb, [facility] [place] [facility] [address] [id number] [place] [address]- 1721 Feb, [facility] [place] [facility] [address] [id number] [place] [address]- 5904 Feb, [facility] [place] [facility] [address] [id number] [place] [address]- 5120 Feb, [facility] [place] [facility] [address] [id number] [place] [address]- 4452 Feb, [facility] [place] [facility] [address] [id number] [place] [address]- 5856 Feb, [facility] [place] [facility] [address] [id number] [place] [address]- 2615 Feb, [facility] [place] [facility] [address] [id number] [place] [address]- 1576 Feb, [facility] [address] [id number] [place] [address]- 6752 Feb, [facility] [place] [facility] [address] [id number] [place] [address]- 8383 Jan, [facility] [place] [facility] [address] [id number] [place] [address]- 8650 Jan, [facility] [place] [facility] [address] [id number] [place] [address]- 3666 Jan, [facility] [place] [facility] [address] [id number] [place] [address]- 3414 Jan, [facility] [place] [facility] [address] [id number] [place] [address]- 1076 Jan, [facility] [place] [facility] [address] [id number] [place] [address]- 4106 Jan, [facility] [place] [facility] [address] [id number] [place] [address]- 2179 Jan, [facility] [place] [facility] [address] [id number] [place] [address]- 6163 Jan, [facility] [place] [facility] [address] [id number], [place] [address]- 6851 Dec, [facility] [place] [facility] [address] [id number], [place] [address]- 6053 Dec, [facility] [place] [facility] [address] [id number], [place] [address]- 1875 Dec, [facility] [place] [facility] [address] [id number], [place] [address]- 5572 Dec, [facility] [place] [facility] [address] [id number], [place] [address]- 3856 Dec, [facility] [place] [facility] [address] [id number], [place] [address]- 4972 Dec, [facility] [place] [facility] [address] [id number], [place] [address]- 7890 Dec, [facility] [place] [facility] [address] [id number] [place] [address]- 9603 Dec, [facility] [place] [facility] [address] [id number] [place] [address]- 9761 Nov, [facility] [place] [facility] [address] [id number] [place] [address]- 0216 Nov, [facility] [place] [facility] [address] [id number] [place] [address]- 8572 14 Nov, 2012 [facility] [place] [facility] [address] [id number] [place] [address]- 4298 14 Nov, 2012 [facility] [place] [facility] [address] [id number] [place] [address]- 4681 Nov, [facility] [place] [facility] [address] [id number] [place] [address]- 1666 Nov, [facility] [place] [facility] [address] [id number] [place] [address]- 5245 Nov, [facility] [place] [facility] [address] [id number] [place] [address]- 2535 10 Oct, 2012 [facility] [place] [facility] [address] [id number] [place] [address]- 7958 10 Oct, 2012 [facility] [place] [facility] [address] [id number] [place] [address]- 9018 05 Oct, 2012 [facility] [place] [facility] [address] [id number] [place] [address]- 2055 Sep, [facility] [place] [facility] [address] [id number] [place] [address]- 9790 Sep, [facility] [place] [facility] [address] [id number] [place] [address]- 8333 Sep, [facility] [place] [facility] [address] [id number] [place] [address]- 2266 Sep, [facility] [place] [facility] [address] [id number] [place] [address]- 7327 24 Aug, 2012 [facility] [address] [id number] [place] [address]- 8169 Aug, [facility] [place] [facility] [address] [id number] [place] [address]- 8496 Aug, [facility] [place] [facility] [address] [id number] [place] [address]- 6878 Aug, [facility] [place] [facility] [address] [id number] [place] [address]- 6238 Aug, [facility] [place] [facility] [address] [id number] [place] [address]- 3959 Jul, [facility] [place] [facility] [address] [id number] [place] [address]- 1376 Jul, [facility] [place] [facility] [address] [id number] [place] [address]- 7764 Jul, [facility] [address] [id number] [place] [address]- 9912 Jul, [facility] [place] [facility] [address] [id number] [place] [address]- 8033 Jul, [facility] [place] [facility] [address] [id number] [place] [address]- 8584 June, [facility] [place] [facility] [address] [id number] [place] [address]- 8686 June, [facility] [place] [facility] [address] [id number] [place] [address]- 8983 June, [facility] [place] [facility] [address] [id number] [place] [address]- 0056 June, [facility] [place] [facility] [address] [id number] [place] [address]- 2546 June, [facility] [place] [facility] [address] [id number] [place] [address]- 3406 29 May, 2012 [facility] [place] [facility] [address] [id number] [place] [address]- 9562 22 May, 2012 [facility] [place] [facility] [address] [id number] [place] [address]- 4242 18 May, 2012 [facility] [place] [facility] [address] [id number] [place] [address]- 9031 17 May, 2012 [facility] [place] [facility] [address] [id number] [place] [address]- 6752 16 May, 2012 [facility] [place] [facility] [address] [id number] [place] [address]- 8983 10 May, 2012 [facility] [place] [facility] [address] [id number] [place] [address]- 8769 04 May, 2012 [facility] [place] [facility] [address] [id number] [place] [address]- 0134 19 Apr, 2012 [facility] [place] [facility] [address] [id number] [place] [address]- 3788 11 Apr, 2012 [facility] [place] [facility] [address] [id number] [place] [address]- 6356 08 Apr, 2012 [facility] [place] [facility] [address] [id number] [place] [address]- 8454 26 Mar, 2012 [facility] [place] [facility] [address] [id number] [place] [address]- 4845 25 Mar, 2012 [facility] [place] [facility] [address] [id number] [place] [address]- 4233 20 Mar, 2012 [facility] [place] [facility] [address] [id number] [place] [address]- 1596 19 Mar, 2012 [facility] [place] [facility] [address] [id number] [place] [address]- 8669 13 Mar, 2012 [facility] [place] [facility] [address] [id number] [place] [address]- 7849 13 Mar, 2012 [facility] [place] [facility] [address] [id number] [place] [address]- 7961 07 Mar, 2012 [facility] [address] [id number] [place] [address]- 6637 07 Mar, 2012 [facility] [address] [id number] [place] [address]- 6086 31 Feb, 2012 [facility] [address] [id number] [place] [address]- 9321 29 Feb, 2012 [facility] [address] [id number] [place] [address]- 9566 28 Feb, 2012 [facility] [address] [id number] [place] [address]- 5568 26 Feb, 2012 [facility] [address] [id number] [place] [address]- 0344 18 Feb, 2012 [facility] [address] [id number] [place] [address]- 8682 15 Feb, 2012 [facility] [address] [id number] [place] [address]- 6438 14 Feb, 2012 [facility] [address] [id number] [place] [address]- 3240 Jan, [facility] [address] [id number] [place] [address]- 5870 Jan, [facility] [address] [id number] [place] [address]- 2484 Jan, [facility] [address] [id number] [place] [address] 2540 Jan, [facility] [place] [facility] [address] [id number] [place] [address]- 0191 Jan, [facility] [place] [facility] [address] [id number] [place] [address]- 2323 Jan, [facility] [address] [id number] [place] [address]- 1485 Jan, [facility] [place] [facility] [address] [id number] [place] [address]- 7302 Jan, [facility] [place] [facility] [address] [id number] [place] [address]- 5717 Jan, [facility] [place] [facility] [address] [id number] [place] [address]- 7642 Jan, [facility] [place] [facility] [address] [id number] [place] [address]- 0388 Jan, [facility] [place] [facility] [address] [id number] [place] [address]- 3317 Jan, [facility] [place] [facility] [address] [id number] [place] [address]- 9180 Jan, [facility] [place] [facility] [address] [id number] [place] [address]- 7682 Jan, [facility] [place] [facility] [address] [id number] [place] [address]- 2876 Dec, [facility] [place] [facility] [address] [id number] [place] [address] Dec, [facility] [place] [facility] [address] [id number] [place] [address] Dec, [facility] [place] [facility] [address] [id number], [place] [address] Dec, [facility] [place] [facility] [address] [id number], [place] [address] Dec, [facility] [place] [facility] [address] [id number] [place] [address] Dec, [facility] [place] [facility] [address] [id number] [place] [address] Dec, [facility] [place] [facility] [address] [id number] [place] [address] Dec, [facility] [place] [facility] [address] [id number] [place] [address] 13 Dec, 2011 [facility] [place] [facility] [address] [id number] [place] [address] Dec, [facility] [place] [facility] [address] [id number] [place] [address] Dec, [facility] [place] [facility] [address] [id number] [place] [address] Dec, [facility] [place] [facility] [address] [id number] [place] [address] Dec, [facility] [place] [facility] [address] [id number] [place] [address] Dec, [facility] [place] [facility] [address] [id number] [place] [address] Dec, [facility] [place] [facility] [address] [id number] [place] [address] Dec, [facility] [place] [facility] [address] [id number] [place] [address] Dec, [facility] [place] [facility] [address] [id number] [place] [address] Dec, [facility] [place] [facility] [address] [id number] [place] [address] Dec, [facility] [place] [facility] [address] [id number] [place] [address] Dec, [facility] [place] [facility] [address] [id number], [place] [address] Nov, [facility] [place] [facility] [address] [id number] [place] [address] Nov, [facility] [place] [facility] [address] [id number] [place] [address] Nov, [facility] [place] [facility] [address] [id number], [place] [address] Nov, [facility] [place] [facility] [address] [id number] [place] [address] 24 Nov, 2011 [facility] [place] [facility] [address] [id number] [place] [address]14 24 Nov, 2011 [facility] [place] [facility] [address] [id number] [place] [address]76 15 Nov, 2011 [facility] [place] [facility] [address] [id number] [place] [address] 15 Nov, 2011 [facility] [place] [facility] [address] [id number] [place] [address] Nov, [facility] [place] [facility] [address] [id number] [place] [address]148 10 Nov, 2011 [facility] [place] [facility] [address] [id number] [place] [address] Nov, [facility] [place] [facility] [address] [id number] [place] [address] Nov, [facility] [place] [facility] [address] [id number] [place] [address] 04 Nov, 2011 [facility] [place] [facility] [address] [id number] [place] [address] 30 Oct, 2011 [facility] [place] [facility] [address] [id number] [place] [address] 27 Sep, 2011 [facility] [place] [facility] [address] [id number] [place] [address] 24 Sep, 2011 [facility] [place] [facility] [address] [id number] [place] [address]648 20 Sep, 2011 [facility] [place] [facility] [address] [id number] [place] [address]- [address]46 11 Sep, 2011 [facility] [place] [facility] [address] [id number] [place] [address]- [address]61 11 Sep, 2011 [facility] [place] [facility] [address] [id number] [place] [address]- [address] Sep, [facility] [place] [facility] [address] [id number] [place] [address] Sep, [facility] [place] [facility] [address] [id number] [place] [address]- [address]27 Sep, [facility] [place] [facility] [address] [id number] [place] [address] Sep, [facility] [place] [facility] [address] [id number] [place] [address] 1043 Aug, [facility] [place] [facility] [address] [id number] [place] [address] 4727 Aug, [facility] [place] [facility] [address] [id number] [place] [address] Aug, [facility] [place] [facility] [address] [id number] [place] [address] Jul, [facility] [place] [facility] [address] [id number] [place] [address] Jul, [facility] [place] [facility] [address] [id number] [place] [address]- 7098 Jul, [facility] [place] [facility] [address] [id number] [place] [address] 0198 Jul, [facility] [place] [facility] [address] [id number] [place] [address]30 June, [facility] [place] [facility] [address] [id number] [place] [address] June, [facility] [place] [facility] [address] [id number] [place] [address]- 9530 June, [facility] [place] [facility] [address] [id number] [place] [address] June, [facility] [place] [facility] [address] [id number] [place] [address]- 0406 June, [facility] [place] [facility] [address] [id number] [place] [address] June, [facility] [address] [id number] [place] [address] 30 May, 2011 [facility] [address] [id number] [place] [address] May, [facility] [address] [id number] [place] [address]135 May, [facility] [address] [id number] [place] [address] 24 May, 2011 [facility] [address] [id number] [place] [address] 89[address] May, [facility] [address] [id number] [place] [address] May, [facility] [address] [id number] [place] [address]- 9997 May, [facility] [address] [id number] [place] [address]- 6940 May, [facility] [address] [id number] [place] [address]- 8[address] May, [facility] [address] [id number] [place] [address]- 7709 Apr, [facility] [facility] [address] [id number] [place] [address] Mar, [facility] [address] [id number] [place] [address] Mar, [facility] [place] [facility] [address] [id number] [place] [address] Mar, [facility] [address] [id number] [place] [address] Mar, [facility] [address] [id number] [place] [address] Feb, [facility] [place] [facility] [address] [id number] [place] [address] Feb, [facility] [place] [facility] [address] [id number] [place] [address] Feb, [facility] [place] [facility] [address] [id number] [place] [address] Jan, [facility] [place] [facility] [address] [id number] [place] [address] Jan, [facility] [place] [facility] [address] [id number] [place] [address] 14 Jan, 2011 [facility] [place] [facility] [address] [id number] [place] [address] 29 Dec, 2010 [facility] [place] [facility] [address] [id number] [place] [address] 28 Dec, 2010 [facility] [place] [facility] [address] [id number] [place] [address] 16 Dec, 2010 [facility] [place] [facility] [address] [id number] [place] [address] 15 Dec, 2010 [facility] [place] [facility] [address] [id number] [address] 31 Nov, 2010 [facility] [place] [facility] [address] [id number] [address] 31 Nov, 2010 [facility] [place] [facility] [address] [id number][place] [address] 19 Nov, 2010 [facility] [place] [facility] [address] [id number] [place] [address] 18 Nov, 2010 [facility] [place] [facility] [address] [id number] [address] 13 Oct, 2010 [facility] [place] [facility] [address] [id number][place] [address] 20 Jul, 2010 [facility] [place] [facility] [address] [id number] [place] [address] 13 Jan, 2010 [facility] [address] [id number] [place] [address] 30 Dec, 2009 [facility] [place] [facility] [address] [id number] [place] [address] Dec, [facility] [place] [facility] [address] [id number] [place] [address] 25[address] Dec, [facility] [place] [facility] [address] [id number] [place] [address] 25[address] Dec, [facility] [place] [facility] [address] [id number] [place] [address] Dec, [facility] [place] [facility] [address] [id number] [place] [address] Dec, [facility] [address] [id number] [place] [address] Nov, [facility] [place] [facility] [address] [id number] [place] [address] Nov, [facility] [place] [facility] [address] [id number] [place] [address] Nov, [facility] [place] [facility] [address] [id number] [place] [address] Apr, [facility] [place] [facility] [address] [id number] [place] [address] 17 Apr, 2009 [facility] [place] [facility] [address] [id number] [place] [address] 2546 29 Jan, 2009 [facility] [place] [facility] [address] [id number] [place] [address] 2546 28 Jan, 2009 [facility] [place] [facility] [address] [id number] [place] [address] 2546 23 Jan, 2009 [facility] [place] [facility] [address] [id number] [place] [address] 17 Jan, 2009 [facility] [id number] [address] Jan, [facility] [id number], [place] [address] Jan, [facility] [id number], [place] [address] Dec, [facility] [id number] [place] [address] Dec, [facility] [id number], [place] [address] Dec, [facility] [id number] [place] [address] Dec, [facility] [address] [id number] [address] Dec, [facility] [id number] [place] [address] Dec, [facility] [id number] [address] Nov, [facility] [id number] [address] Nov, [facility] [id number], [place] [address] Aug, [facility] [id number] [address] Jul, [facility] [id number] [address] June, [facility] [id number], [place] [address] Apr, IMMUNIZATIONS No Known Immunizations SOCIAL HISTORY Never Assessed REASON FOR VISIT Pain management (chronic)--tcuppettRN, -Increase in bilateral knee pain and weakness PLAN OF CARE Activity Details Follow Up 6 Months Reason:Pain VITAL SIGNS Height 63 in 2017-03-18 Weight 130.8 lbs 2017-03-18 Temperature 98.3 degrees Fahrenheit 2017-03-18 Heart Rate 96 bpm 2017-03-18 Respiratory Rate 24 2017-03-18 BMI 23.17 kg/m2 2017-03-18 Blood pressure systolic 150 mmHg 2017-03-18 Blood pressure diastolic 80 mmHg 2017-03-18 MEDICATIONS Medication Instructions Dosage Frequency Start Date End Date Duration Status Furosemide 20 mg Orally Once a day 1 tablet 24h 30 Not-Taking Acetaminophen 500 MG Orally three times per day 2 tablets Not- Taking BusPIRone HCl 5 mg Orally 2 times a day 1 tablet 12h 90 days Active Clonazepam 0.5 MG Orally 2 times a day 1 tablet 12h 28 days Active Meloxicam 7.5 MG orally 2 times a day 1 tablet 12h May, 90 days Active Duloxetine HCl 60 mg Orally 2 times a day 1 capsule 12h 90 days Active Restasis 0.05 % Ophthalmic Twice a day 1 drop into affected eye 12h Active Artificial Tear Solution Ophthalmic 2 times a day 2 drops as needed 12h Active Famotidine 20 mg Orally Twice a day 1 tablet 12h 90 days Active RESULTS Name Result Date Reference Range Xray : Knees, Bilateral (IN HOUSE) 2017-03-18 PROCEDURES Procedure Date Ordered Result Body Site X-RAY EXAM OF KNEES Mar 18, 2017 [facility] VISIT ESTABLISHED PATIENT Mar 18, 2017 INSTRUCTIONS MEDICATIONS ADMINISTERED No Known Medications [...] of loosened hardware/hip replacement ( [facility] in [place]) 09/2008 Hospitalization History in rehab s/p left hip repair 09/2008-11/2008 Hospitalization History [facility] 07/2009
--- OUTSIDE RECORDS SUMMARY | 2017-10-26 13:58 | XMS REPORT ---
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 Active 465427383 Problem Panic attacks F41.0 Active 440496516 Problem Seasonal allergic rhinitis due to other allergic trigger J30.89 Active 576931886 Problem Dementia without behavioral disturbance, unspecified dementia type F03.90 Active 11020574 Problem 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
[2017-10-26] MEDS ORDERED: ALPRAZolam 0.25 MG (XANAX) TAB PO ONE (14:00)
--- OUTSIDE RECORDS SUMMARY | 2017-10-26 14:00 | XMS REPORT ---
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 Straight Bevel Gear Name Role Phone KATHLEEN TRIANAY Unavailable PROBLEMS Type Condition ICD9-CM Code SLF39-YO Code Onset Dates Condition Status SNOMED Code Problem Generalized osteoarthritis M15.9 Active 508114790 Problem Generalized anxiety disorder F41.1 Active 173534999 Problem Dementia without behavioral disturbance, unspecified dementia type F03.90 Active 57221992 Problem 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 Active 807636142 Problem Meningioma D32.9 Active 779103514 Problem Anxiety F41.9 Active 86148601 Problem Acute drug withdrawal syndrome without complication F19.230 Active 263139596 Problem Seasonal allergic rhinitis due to other allergic trigger J30.89 Active 467246838 Problem Anxiety disorder, unspecified F41.9 Active 634454220 Problem Other chronic pain G89.29 Active 96461956 Problem Panic attacks F41.0 Active 473480733 ALLERGIES No Information ENCOUNTERS Encounter Location Date Diagnosis [facility] [address] [address]- [address] 19 May, 2017 [facility] [address] [address]7 -7944 17 May, 2017 Anxiety F41.9 ; Acute drug withdrawal syndrome without complication F19.230 and Abdominal pain, unspecified abdominal location R10.9 [facility] [id number] [place] [address] 36916- 3538 16 May, 2017 Panic attacks F41.0 [facility] [address] [address]- 5576 03 May, 2017 Other chronic pain G89.29 and Generalized anxiety disorder F41.1 [facility] [address] 95985- 8076 Apr, Housing problems Z59.9 and Panic attacks F41.0 [facility] [id number] [place] [address] 64303- 9354 Mar, Panic attacks F41.0 [facility] [id number] [place] [address] 44791- 3169 Feb, [facility] [id number] [place] [address] 01595- 1316 Feb, Panic attacks F41.0 [facility] [id number] [place] [address] 87392- 4690 Feb, Pain in right knee M25.561 ; Pain in left knee M25.562 ; Other chronic pain G89.29 ; Housing problems Z59.9 ; Dementia without behavioral disturbance, unspecified dementia type F03.90 ; Generalized anxiety disorder F41.1 and Advance directive declined by patient Z78.9 [facility] [id number] [place] [address] 10426- 9096 Jan, Panic attacks F41.0 [facility] [id number] [place] [address] 48155- 1099 Jan, Panic attacks F41.0 [facility] [id number] [place] [address] 01993- 6269 Dec, Panic attacks F41.0 [facility] [id number] [place] [address] 22284 -8836 Nov, Allergic contact dermatitis due to cosmetics L23.2 [facility] [id number] [place] [address] 90786- 1397 Nov, Panic attacks F41.0 [facility] [id number] [place] [address] 36633- 2898 Oct, Panic attacks F41.0 [facility] [id number] [place] [address] 72616- 3229 Sep, Panic attacks F41.0 ; Insect bite, initial encounter W57.XXXA and 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 [facility] [id number] [place] [address] 48176- 4163 Sep, [facility] [id number] [place] [address] 52550- 8600 Aug, Generalized anxiety disorder F41.1 [facility] [address] 26043- 1630 Jul, [facility] [id number] [place] [address] 76605 -7232 June, Seasonal allergic rhinitis due to other allergic trigger J30.89 [facility] [id number] [place] [address] 33924- 1721 June, [facility] [address] 78390- 6487 June, [facility] [id number] [place] [address] 46945 -5185 June, Dysuria R30.0 and RLQ abdominal pain R10.31 [facility] [id number] [place] [address] 64506- 0143 May, Generalized anxiety disorder F41.1 ; Generalized osteoarthritis M15.9 and Dementia without behavioral disturbance, unspecified dementia type F03.90 [facility] [id number] [place] [address] 10190- 6894 May, [facility] [id number] [place] [address] 04295- 6922 May, [facility] [id number] [place] [address] 85195- 9721 May, [facility] [id number] [place] [address] 44756- 7938 Apr, [facility] [id number] [place] [address] 54955- 3592 Apr, Generalized anxiety disorder F41.1 [facility] [address] [address]- 3579 Apr, [facility] [id number] [place] [address] 92936- 4716 Apr, [facility] [address] [address]- 1135 Apr, [facility] [id number] [place] [address] 23126- 8166 Apr, Generalized anxiety disorder F41.1 [facility] [id number] [place] [address] 35021- 3915 Mar, [facility] [id number] [place] [address] 89156- 2122 Mar, [facility] [id number] [place] [address] 30995- 0866 Mar, [facility] [address] [address]- 1453 Mar, [facility] [id number] [place] [address] 86155- 1430 Mar, Generalized anxiety disorder F41.1 [facility] [address] [address]- 9093 Feb, Anxiety disorder, unspecified F41.9 [facility] [address] [address]- 2780 Feb, [facility] [address], [place] [address]- 2803 Feb, [facility] [address] [address]- 7502 Feb, [facility] [address], [place] [address] -3509 Feb, Urinary frequency R35.0 and Acute cystitis without hematuria N30.00 [facility] [address] [address]- 4146 Feb, [facility] [id number] [place] [address], [place] [address]- 3049 Jan, [facility] [id number] [place] [address], [place] [address]- 0734 Jan, [facility] [id number] [place] [address], [place] [address]- 4725 Dec, [facility] [id number] [place] [address], [place] [address]- 0212 Dec, [facility] [id number] [place] [address], [place] [address]- 8986 Dec, Edema, unspecified type R60.9 [facility] [id number] [place] [address] 55528- 9603 Dec, [facility] [address] [address]- 7084 Dec, [facility] [id number] [place] [address] 89889- 6910 30 Oct, 2015 Generalized anxiety disorder F41.1 [facility] [address], [place] [address]- 4642 Oct, [facility] [id number] [place] [address] 80735 2541 16 Oct, 2015 [facility] [address], [place] [address]- 254 15 Oct, 2015 [facility] [id number] [place] [address], [place] [address]- 7930 06 Oct, 2015 [facility] [address], [place] [address]- 2300 Aug, Anxiety disorder, unspecified F41.9 [facility] [id number] [place] [address] 03882- 3757 Jul, Anxiety disorder, unspecified F41.9 [facility] [address], [place] [address]- 5927 Jul, Generalized anxiety disorder F41.1 [facility] [address] [facility] [id number] [address]- 9068 Jul, [facility] [id number] [place] [address] 57558- 7345 June, [facility] [id number] [place] [address] 51208- 4968 June, [facility] [id number] [place] [address] 07882- 4846 June, [facility] [id number] [place] [address] 18448- 1236 June, [facility] [id number] [place] [address] 27762- 2070 May, [facility] [address], [place] [address] -3159 May, Dementia without behavioral disturbance, unspecified dementia type F03.90 and Generalized osteoarthritis M15.9 [facility] [address], [place] [address]- 3983 May, Generalized osteoarthritis M15.9 and 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 [facility] [address], [place] [address]- 1221 Apr, [facility] [address], [place] [address]- 3732 Apr, [facility] [id number] [place] [address] 07262- 0117 Apr, [facility] [address], [place] [address]- 5752 Mar, [facility] [id number] [place] [address] 79722- 5697 Mar, [facility] [id number] [place] [address] 97521- 7966 Mar, Generalized anxiety disorder F41.1 [facility] [id number] [place] [address] 15530- 3907 Feb, Other infective acute otitis externa of right ear H60.391 [facility] [id number] [place] [address] 12571- 9817 Dec, Dysuria R30.0 ; Generalized osteoarthritis M15.9 and Gastroesophageal reflux disease, esophagitis presence not specified K21.9 [place] [address] 32058- 2762 Dec, [facility] [address] 19989- 7958 Dec, Generalized anxiety disorder F41.1 ; Encounter for immunization Z23 and Dementia F03.90 [facility] [id number] [place] [address] 17469- 2141 Nov, [facility] [address] 28262- 9307 Oct, [facility] [id number] [place] [address] 17401- 6488 Oct, 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 ; Chronic pain 338.29 ; Anxiety 300.00 and Dementia 294.20 [facility] [id number] [place] [address] 93876- 5282 Oct, [facility] [id number] [place] [address] 96465- 0512 Aug, Generalized anxiety disorder 300.02 and Dementia 294.20 [facility] [id number] [place] [address] 43622- 0923 Aug, [place] [address] 98144- 6875 Aug, Anxiety 300.00 and Chronic pain 338.29 [facility] [address], [place] [address]- 9694 Jul, [facility] [id number] [place] [address] 11623- 2906 Jul, [facility] [id number] [place] [address] 11257- 2384 June, [facility] [id number] [place] [address] 51468- 9512 June, Anxiety, generalized 300.02 ; Dementia 294.20 and No condition on [place] II V71.09 [facility] [id number] [place] [address] 08404- 3343 May, [facility] [id number] [place] [address] 85315- 8770 May, [facility] [id number] [place] [address] 48613- 4141 Apr, [facility] [id number] [place] [address] 38972- 6653 Apr, [facility] [id number] [place] [address] 90439- 3367 Apr, [facility] [address], [place] [address]- 7670 Apr, [facility] [id number] [place] [address] 00821- 2252 Apr, [facility] [address] 0883 Apr, [facility] [id number] [place] [address] 617572- 8757 Apr, [facility] [address], [place] [address]- 2800 Apr, [facility] [id number] [place] [address] 86688- 3059 Apr, [facility] [place] [facility] [address] [id number] [place] [address]- 1172 Apr, [facility] [place] [facility] [address] [id number] [place] [address]- 2265 Apr, [facility] [place] [facility] [address] [facility] [id number] [place] [address]- 9926 Apr, [facility] [place] [facility] [address] [id number] [place] [address]- 5085 Apr, [facility] [place] [facility] [address] [id number] [place] [address]- 9036 Apr, [facility] [place] [facility] [address] [facility] [id number] [place] [address]- 5979 Apr, [facility] [place] [facility] [address] [facility] [id number] [place] [address]- 6381 Apr, [facility] [place] [facility] [address] [facility] [id number] [place] [address]- 9198 Mar, 2014 [facility] [place] [facility] [address] [facility] [id number] [place] [address]- 1813 Mar, 2014 [facility] [place] [facility] [address] [facility] [id number] [place] [address]- 4244 Mar, 2014 [facility] [place] [facility] [address] [facility] [id number] [place] [address]- 3248 Mar, 2014 [facility] [place] [facility] [address] [facility] [id number] [address]- 4071 Mar, 2014 [facility] [place] [facility] [address] [facility] [id number] [place] [address]- 5780 Mar, 2014 [facility] [place] [facility] [address] [facility] [id number] [place] [address]- 6658 Mar, 2014 [facility] [place] [facility] [address] [facility] [id number], [place] [address]- 9116 Mar, 2014 [facility] [place] [facility] [address] [id number] [place] [address]- 3268 20 Mar, 2014 [facility] [place] [facility] [address] [id number] [place] [address]- 1396 20 Mar, 2014 [facility] [place] [facility] [address] [facility] [id number] [place] [address]- 0456 18 Mar, 2014 [facility] [place] [facility] [address] [id number] [place] [address] 2540 18 Mar, 2014 [facility] [place] [facility] [address] [id number] [place] [address] 2549 17 Mar, 2014 [facility] [place] [facility] [address] [id number] [place] [address]- 4464 17 Mar, 2014 [facility] [place] [facility] [address] [facility] [id number] [place] [address]- 2883 17 Mar, 2014 [facility] [place] [facility] [address] [facility] [id number] [place] [address]- 5291 17 Mar, 2014 [facility] [place] [facility] [address] [facility] [id number] [place] [address]- 6000 13 Mar, 2014 [facility] [place] [facility] [address] [facility] [id number] [place] [address]- 7414 13 Mar, 2014 [facility] [place] [facility] [address] [facility] [id number] [place] [address]- 0257 13 Mar, 2014 [facility] [place] [facility] [address] [facility] [id number] [place] [address]- 2545 13 Mar, 2014 [facility] [place] [facility] [address] [facility] [id number] [place] [address]- 2543 12 Mar, 2014 [facility] [place] [facility] [address] [facility] [id number] [place] [address]- 9140 12 Mar, 2014 [facility] [place] [facility] [address] [facility] [id number] [place] [address]- 8442 10 Mar, 2014 [facility] [place] [facility] [address] [id number] [place] [address]- 4723 Mar, [facility] [place] [facility] [address] [id number] [place] [address]- 7606 Mar, [facility] [place] [facility] [address] [id number] [place] [address]- 8936 Mar, [facility] [place] [facility] [address] [id number] [place] [address]- 7397 Feb, [facility] [place] [facility] [address] [id number] [place] [address]- 1420 Feb, [facility] [place] [facility] [address] [id number] [place] [address]- 2687 Feb, [facility] [place] [facility] [address] [id number] [place] [address]- 9597 Feb, [facility] [place] [facility] [address] [id number] [place] [address]- 0216 Feb, [facility] [place] [facility] [address] [id number] [place] [address]- 4475 Feb, [facility] [place] [facility] [address] [id number] [place] [address]- 9878 Feb, [facility] [place] [facility] [address] [id number] [place] [address]- 9149 Feb, [facility] [place] [facility] [address] [id number] [place] [address]- 8762 Feb, [facility] [place] [facility] [address] [id number] [place] [address]- 6394 Feb, [facility] [place] [facility] [address] [id number] [place] [address]- 8923 Feb, [facility] [place] [facility] [address] [id number] [place] [address]- 4219 Feb, [facility] [place] [facility] [address] [id number] [place] [address]- 5511 Feb, [facility] [place] [facility] [address] [id number] [place] [address]- 3591 Feb, [facility] [place] [facility] [address] [id number] [place] [address]- 7679 Feb, [facility] [place] [facility] [address] [id number] [place] [address]- 3029 Jan, [facility] [place] [facility] [address] [id number] [place] [address]- 6953 Jan, [facility] [place] [facility] [address] [id number] [place] [address]- 0511 Jan, [facility] [place] [facility] [address] [id number] [place] [address]- 1912 Jan, [facility] [place] [facility] [address] [id number] [place] [address]- 1446 Jan, [facility] [place] [facility] [address] [id number] [place] [address]- 5000 Jan, [facility] [place] [facility] [address] [id number] [place] [address]- 3834 Jan, [facility] [place] [facility] [address] [id number] [place] [address]- 7474 Jan, [facility] [place] [facility] [address] [id number] [place] [address]- 0049 Jan, [facility] [place] [facility] [address] [id number] [place] [address]- 0416 Jan, [facility] [place] [facility] [address] [id number] [place] [address]- 0334 Jan, [facility] [place] [facility] [address] [id number] [place] [address]- 2530 Jan, [facility] [place] [facility] [address] [id number] [place] [address] Jan, [facility] [place] [facility] [address] [id number] [place] [address] Jan, [facility] [place] [facility] [address] [id number] [place] [address] Jan, [facility] [place] [facility] [address] [id number] [place] [address] Jan, [facility] [address] [id number] [place] [id number] Jan, [facility] [place] [facility] [address] [id number] [place] [address] Jan, [facility] [place] [facility] [address] [id number] [place] [address] Jan, [facility] [place] [facility] [address] [facility] [id number] [place] [address] Jan, [facility] [place] [facility] [address] [id number] [place] [address] Dec, [facility] [place] [facility] [address] [id number] [place] [address] Dec, [facility] [place] [facility] [address] [id number] [place] [address] Dec, [facility] [place] [facility] [address] [facility] [id number] [place] [address] Dec, [facility] [place] [facility] [address] [id number] [place] [address] Dec, [facility] [place] [facility] [address] [id number] [place] [address] Dec, [facility] [place] [facility] [address] [id number] [place] [address] Dec, [facility] [place] [facility] [address] [facility] [id number] [place] [address] Nov, [facility] [place] [facility] [address] [id number] [place] [address] Nov, [facility] [place] [facility] [address] [id number] [place] [address] Nov, [facility] [place] [facility] [address] [id number] [place] [address] Nov, [facility] [place] [facility] [address] [id number] [place] [address]- [address] Nov, [facility] [place] [facility] [address] [id number] [place] [address] Nov, [facility] [place] [facility] [address] [id number] [place] [address]- [address] Nov, [facility] [place] [facility] [address] [id number] [place] [address] Nov, [facility] [place] [facility] [address] [id number] [place] [address] Nov, [facility] [place] [facility] [address] [id number] [place] [address] Nov, [facility] [place] [facility] [address] [id number] [place] [address] 29 Oct, 2013 [facility] [place] [facility] [address] [id number] [place] [address] 29 Oct, 2013 [facility] [place] [facility] [address] [id number] [place] [address]- [address] 15 Oct, 2013 [facility] [place] [facility] [address] [id number] [place] [address] 15 Oct, 2013 [facility] [place] [facility] [address] [id number] [place] [address]- [address] 15 Oct, 2013 [facility] [place] [facility] [address] [id number] [place] [address]- [address] 15 Oct, 2013 [facility] [place] [facility] [address] [id number] [place] [address] 10 Oct, 2013 [facility] [place] [facility] [address] [id number] [place] [address] Oct, [facility] [place] [facility] [address] [id number] [place] [address] Oct, [facility] [place] [facility] [address] [id number] [place] [address]- [address] Oct, [facility] [place] [facility] [address] [id number] [place] [address] Sep, [facility] [place] [facility] [address] [id number] [place] [address] Sep, [facility] [place] [facility] [address] [id number] [place] [address] Sep, [facility] [place] [facility] [address] [id number] [place] [address] Sep, [facility] [place] [facility] [address] [id number] [place] [address]- 47[address] Sep, [facility] [place] [facility] [address] [id number] [place] [address] Sep, [facility] [place] [facility] [address] [id number] [place] [address] Sep, [facility] [place] [facility] [address] [id number] [place] [address]- 2010 Sep, [facility] [place] [facility] [address] [id number] [place] [address]- [address] Sep, [facility] [place] [facility] [address] [id number] [place] [address] Sep, [facility] [place] [facility] [address] [id number] [place] [address] Aug, [facility] [place] [facility] [address] [id number] [place] [address] Aug, [facility] [place] [facility] [address] [id number] [place] [address] Aug, [facility] [place] [facility] [address] [id number] [place] [address] Aug, 2013 [facility] [place] [facility] [address] [id number] [place] [address] Aug, [facility] [place] [facility] [address] [id number] [place] [address] 18 Aug, 2013 [facility] [place] [facility] [address] [id number] [place] [address]858 Aug, [facility] [place] [facility] [address] [id number] [place] [address] 4[address] Aug, 2013 [facility] [place] [facility] [address] [id number] [place] [address] 6909 Aug, [facility] [place] [facility] [address] [id number] [place] [address] 3985 Aug, [facility] [place] [facility] [address] [id number] [place] [address] 3800 Aug, [facility] [place] [facility] [address] [id number] [place] [address]- 0725 Aug, [facility] [place] [facility] [address] [id number] [place] [address] 2070 Jul, [facility] [place] [facility] [address] [id number] [place] [address] 9911 Jul, [facility] [place] [facility] [address] [id number] [place] [address]- 5020 Jul, [facility] [place] [facility] [address] [id number] [place] [address]- 6938 Jul, [facility] [place] [facility] [address] [id number] [place] [address]- 4818 Jul, [facility] [place] [facility] [address] [id number] [place] [address]- 7840 Jul, [facility] [place] [facility] [address] [id number] [place] [address]- 3861 Jul, [facility] [place] [facility] [address] [id number] [place] [address]- 7875 Jul, [facility] [place] [facility] [address] [id number] [place] [address]- 4343 Jul, [facility] [place] [facility] [address] [id number] [place] [address]- 4751 Jul, [facility] [place] [facility] [address] [id number] [place] [address]- 0206 Jul, [facility] [place] [facility] [address] [id number] [place] [address]- 2984 Jul, [facility] [place] [facility] [address] [id number] [place] [address]- 8880 Jul, [facility] [place] [facility] [address] [id number] [place] [address]- 8673 Jul, [facility] [place] [facility] [address] [id number] [place] [address]- 2560 Jul, [facility] [place] [facility] [address] [id number] [place] [address]- 3266 Jul, [facility] [place] [facility] [address] [id number] [place] [address]- 3184 Jul, [facility] [place] [facility] [address] [id number] [place] [address]- 7375 June, [facility] [place] [facility] [address] [id number] [place] [address]- 8032 June, [facility] [place] [facility] [address] [id number] [place] [address] 1914 June, [facility] [place] [facility] [address] [id number] [place] [address]- 0640 June, [facility] [place] [facility] [address] [id number] [place] [address]- 2755 June, [facility] [place] [facility] [address] [id number], [place] [address] June, [facility] [address] [id number] [place] [address]- 5212 June, [facility] [place] [facility] [address] [id number] [place] [address]- 2653 June, [facility] [address] [id number] [place] [address]- 3367 June, [facility] [place] [facility] [address] [id number] [place] [address]- 0657 June, [facility] [address] [id number] [place] [address]- 6189 June, [facility] [address] [id number] [place] [address]- 8021 June, [facility] [address] [id number] [place] [address]- 6491 June, [facility] [address] [id number] [place] [address]- 7163 June, [facility] [address] [id number] [place] [address]- 8203 June, [facility] [address] [id number] [place] [address]- 1027 June, [facility] [address] [id number] [place] [address]- 8468 June, [facility] [place] [facility] [address] [id number] [place] [address]- 5605 June, [facility] [place] [facility] [address] [id number] [place] [address]- 1251 June, [facility] [place] [facility] [address] [id number] [place] [address]- 5151 June, [facility] [place] [facility] [address] [id number] [place] [address]- 3296 June, [facility] [place] [facility] [address] [id number] [place] [address]- 7987 June, [facility] [place] [facility] [address] [id number] [place] [address]- 7514 June, [facility] [place] [facility] [address] [id number] [place] [address] June, [facility] [place] [facility] [address] [id number] [place] [address]- 9903 June, [facility] [place] [facility] [address] [id number] [place] [address]- 7152 June, [facility] [place] [facility] [address] [id number] [place] [address]- 8056 June, [facility] [place] [facility] [address] [id number] [place] [address]- 4147 June, [facility] [place] [facility] [address] [id number] [place] [address]- 8615 June, [facility] [place] [facility] [address] [id number] [place] [address]- 2670 June, [facility] [place] [facility] [address] [id number] [place] [address]- 5965 June, [facility] [place] [facility] [address] [id number] [place] [address] 1982 June, [facility] [place] [facility] [address] [id number] [place] [address]- 0619 May, [facility] [place] [facility] [address] [id number] [place] [address]- 3768 May, [facility] [place] [facility] [address] [id number] [place] [address]- 4340 May, [facility] [place] [facility] [address] [id number] [place] [address]- 7539 May, [facility] [place] [facility] [address] [id number] [place] [address]- 0648 May, [facility] [place] [facility] [address] [id number] [place] [address]- 9848 May, [facility] [place] [facility] [address] [id number] [place] [address]- 2734 May, [facility] [place] [facility] [address] [id number] [place] [address]- 8513 May, [facility] [place] [facility] [address] [id number] [place] [address]- 9231 May, [facility] [place] [facility] [address] [id number] [place] [address]- 8566 May, [facility] [place] [facility] [address] [id number] [place] [address]- 2631 May, [facility] [place] [facility] [address] [id number] [place] [address]- 1319 May, [facility] [place] [facility] [address] [id number] [place] [address]- 5767 May, [facility] [place] [facility] [address] [id number] [place] [address]- 7960 May, [facility] [place] [facility] [address] [id number] [place] [address]- 5295 May, [facility] [place] [facility] [address] [id number] [place] [address]- 0028 Apr, [facility] [place] [facility] [address] [id number] [place] [address]- 6156 Apr, [facility] [place] [facility] [address] [id number] [place] [address]- 8100 Apr, [facility] [place] [facility] [address] [id number] [place] [address]- 5818 Apr, [facility] [place] [facility] [address] [id number] [place] [address]- 3602 Apr, [facility] [place] [facility] [address] [id number] [place] [address]- 8717 Apr, [facility] [place] [facility] [address] [id number] [place] [address]- 8926 Mar, [facility] [place] [facility] [address] [id number] [place] [address] 2546 Mar, [facility] [place] [facility] [address] [id number] [place] [address]- 3676 Mar, [facility] [place] [facility] [address] [id number] [place] [address] 2542 Mar, [facility] [place] [facility] [address] [id number] [place] [address]- 0776 Mar, [facility] [place] [facility] [address] [id number] [place] [address]- 6198 Mar, [facility] [place] [facility] [address] [id number] [place] [address] 2541 Mar, [facility] [place] [facility] [address] [id number] [place] [address]- 4356 Mar, [facility] [place] [facility] [address] [id number] [place] [address]- 0394 Feb, [facility] [place] [facility] [address] [id number] [place] [address]- 0197 Feb, [facility] [place] [facility] [address] [id number] [place] [address]- 2541 Feb, [facility] [place] [facility] [address] [id number] [place] [address] 2549 Feb, [facility] [place] [facility] [address] [id number] [place] [address]- 2546 Feb, [facility] [place] [facility] [address] [id number] [place] [address]- 2549 Feb, [facility] [place] [facility] [address] [id number] [place] [address]- 5026 Feb, [facility] [place] [facility] [address] [id number] [place] [address]- 1437 Feb, [facility] [place] [facility] [address] [id number] [place] [address]- 5506 Feb, [facility] [place] [facility] [address] [facility] [id number] [place] [address]- 5333 Feb, [facility] [place] [facility] [address] [id number] [place] [address]- 8723 Jan, [facility] [place] [facility] [address] [id number] [place] [address]- 0780 Jan, [facility] [place] [facility] [address] [id number] [place] [address]- 2390 Jan, [facility] [place] [facility] [address] [id number] [place] [address]- 1618 Jan, [facility] [place] [facility] [address] [id number] [place] [address]- 0361 Jan, [facility] [place] [facility] [address] [id number] [place] [address]- 7213 Jan, [facility] [place] [facility] [address] [id number] [place] [address]- 9241 Jan, [facility] [place] [facility] [address] [id number], [place] [address]- 5290 Jan, [facility] [place] [facility] [address] [id number], [place] [address]- 7454 Dec, [facility] [place] [facility] [address] [id number] [place] [address]- 0399 Dec, [facility] [place] [facility] [address] [id number], [place] [address]- 8382 Dec, [facility] [place] [facility] [address] [facility] [id number] [place] [address]- 4708 Dec, [facility] [place] [facility] [address] [id number] [place] [address]- 1659 04 Dec, 2012 [facility] [place] [facility] [address] [id number] [place] [address]- 6680 Dec, [facility] [place] [facility] [address] [id number] [place] [address]- 4982 Dec, [facility] [place] [facility] [address] [id number] [place] [address]- 6191 Dec, [facility] [place] [facility] [address] [id number] [place] [address]- 5445 Nov, [facility] [place] [facility] [address] [id number] [place] [address] Nov, [facility] [place] [facility] [address] [id number] [place] [address]- 7472 Nov, [facility] [place] [facility] [address] [id number] [place] [address]- 4620 14 Nov, 2012 [facility] [place] [facility] [address] [id number] [place] [address]- 8317 Nov, [facility] [place] [facility] [address] [id number] [place] [address]- 1225 Nov, [facility] [place] [facility] [address] [id number] [place] [address]- 2630 07 Nov, 2012 [facility] [place] [facility] [address] [id number] [place] [address]- 0174 10 Oct, 2012 [facility] [place] [facility] [address] [id number] [place] [address]- 8233 10 Oct, 2012 [facility] [place] [facility] [address] [id number] [place] [address]- 3874 05 Oct, 2012 [facility] [place] [facility] [address] [id number] [place] [address]- 1512 Sep, [facility] [place] [facility] [address] [id number] [place] [address]- 7684 Sep, [facility] [place] [facility] [address] [id number] [place] [address]- 9890 Sep, [facility] [address] [id number] [place] [address]- 6769 Sep, [facility] [address] [id number] [place] [address]- 4043 Aug, [facility] [address] [id number] [place] [address]- 7688 Aug, [facility] [address] [id number] [place] [address]- 4408 Aug, [facility] [address] [id number] [place] [address]- 9371 Aug, [facility] [address] [id number] [place] [address]- 1377 Aug, [facility] [address] [id number] [place] [address]- 2540 Jul, [facility] [address] [id number] [place] [address]- 5999 Jul, [facility] [address] [id number] [place] [address]- 3482 Jul, [facility] [address] [id number] [place] [address]- 2843 Jul, [facility] [place] [facility] [address] [id number] [place] [address]- 7764 Jul, [facility] [place] [facility] [address] [id number] [place] [address]- 0379 June, [facility] [place] [facility] [address] [id number] [place] [address]- 2980 June, [facility] [place] [facility] [address] [id number] [place] [address]- 0390 June, [facility] [place] [facility] [address] [id number] [place] [address]- 0056 June, [facility] [address] [id number] [place] [address]- 7092 June, [facility] [address] [id number] [place] [address]- 5153 May, [facility] [address] [id number] [place] [address]- 7197 May, [facility] [place] [facility] [address] [id number] [place] [address]- 8789 May, [facility] [address] [id number] [place] [address]- 3114 May, [facility] [address] [id number] [place] [address]- 0224 16 May, 2012 [facility] [address] [id number] [place] [address]- 9590 May, [facility] [place] [facility] [address] [id number] [place] [address]- 7491 May, [facility] [address] [id number] [place] [address]- 9644 Apr, [facility] [place] [facility] [address] [id number] [place] [address]- 3970 Apr, [facility] [address] [id number] [place] [address]- 5416 Apr, [facility] [place] [facility] [address] [id number] [place] [address]- 4537 Mar, [facility] [place] [facility] [address] [id number] [place] [address]- 4971 Mar, [facility] [place] [facility] [address] [id number] [place] [address]34 Mar, [facility] [place] [facility] [address] [id number] [place] [address]- 8820 Mar, [facility] [place] [facility] [address] [id number] [place] [address]- 9321 13 Mar, 2012 [facility] [address] [id number] [place] [address]- 5366 13 Mar, 2012 [facility] [place] [facility] [address] [id number] [place] [address]- 5498 07 Mar, 2012 [facility] [place] [facility] [address] [id number] [place] [address]- 9067 07 Mar, 2012 [facility] [place] [facility] [address] [id number] [place] [address]- 8264 31 Feb, 2012 [facility] [address] [id number] [place] [address]- 1511 29 Feb, 2012 [facility] [address] [id number] [place] [address]- 1738 Feb, [facility] [address] [id number] [place] [address]- 7563 26 Feb, 2012 [facility] [address] [id number] [place] [address]- 7429 18 Feb, 2012 [facility] [address] [id number] [place] [address]- 3696 15 Feb, 2012 [facility] [address] [id number] [place] [address]- 3812 14 Feb, 2012 [facility] [address] [id number] [place] [address]- 9067 Jan, [facility] [place] [facility] [address] [id number] [place] [address]- 7430 Jan, [facility] [place] [facility] [address] [id number] [place] [address]- 3504 Jan, [facility] [place] [facility] [address] [id number] [place] [address]- 8811 Jan, [facility] [place] [facility] [address] [id number] [place] [address]- 2546 Jan, [facility] [place] [facility] [address] [id number] [place] [address]- 0636 Jan, [facility] [place] [facility] [address] [id number] [place] [address]- 8656 Jan, [facility] [place] [facility] [address] [id number] [place] [address]- 1016 Jan, [facility] [place] [facility] [address] [id number] [place] [address]- 8756 Jan, [facility] [place] [facility] [address] [id number] [place] [address]- 2426 13 Jan, 2012 [facility] [place] [facility] [address] [id number] [place] [address]- 9452 Jan, [facility] [place] [facility] [address] [id number] [place] [address]- 5514 Jan, [facility] [place] [facility] [address] [id number] [place] [address]- 0333 Jan, [facility] [place] [facility] [address] [id number] [place] [address]- 5788 Jan, [facility] [place] [facility] [address] [id number] [place] [address]- 5660 Dec, [facility] [place] [facility] [address] [id number] [place] [address]- 9807 Dec, [facility] [place] [facility] [address] [id number] [place] [address]- 8824 Dec, [facility] [place] [facility] [address] [id number] [place] [address]- 9406 Dec, [facility] [place] [facility] [address] [id number] [place] [address]- 4694 Dec, [facility] [place] [facility] [address] [id number] [place] [address]- 5419 Dec, [facility] [place] [facility] [address] [id number] [place] [address]- 3229 26 Dec, 2011 [facility] [place] [facility] [address] [id number] [place] [address]- 3443 Dec, [facility] [place] [facility] [address] [id number] [place] [address]- 5286 13 Dec, 2011 [facility] [place] [facility] [address] [id number] [place] [address]- 6179 13 Dec, 2011 [facility] [place] [facility] [address] [id number] [place] [address]- 1725 13 Dec, 2011 [facility] [place] [facility] [address] [id number] [place] [address], [place] [address]- 3076 Dec, [facility] [place] [facility] [address] [id number] [place] [address]- 0521 Dec, [facility] [place] [facility] [address] [id number] [place] [address]- 3963 Dec, [facility] [place] [facility] [address] [id number] [place] [address] Dec, [facility] [place] [facility] [address] [id number] [place] [address] Dec, [facility] [place] [facility] [address] [facility] [id number] [place] [address] Dec, [facility] [place] [facility] [address] [id number] [place] [address] Dec, [facility] [place] [facility] [address] [id number] [place] [address]- 64[address] Dec, [facility] [place] [facility] [address] [id number] [place] [address]26 Dec, [facility] [place] [facility] [address] [id number] [place] [address] Nov, [facility] [place] [facility] [address] [id number] [place] [address] Nov, [facility] [place] [facility] [address] [id number] [place] [address]73 30 Nov, 2011 [facility] [place] [facility] [address] [id number] [place] [address] Nov, [facility] [place] [facility] [address] [id number] [place] [address] 3330 Nov, [facility] [place] [facility] [address] [id number] [place] [address] Nov, [facility] [place] [facility] [address] [id number] [place] [address] 2007 Nov, [facility] [place] [facility] [address] [id number] [place] [address]- [address]26 15 Nov, 2011 [facility] [place] [facility] [address] [id number] [place] [address]- 57[address] Nov, [facility] [place] [facility] [address] [id number], [place] [address] Nov, [facility] [place] [facility] [address] [id number] [place] [address]- 1146 Nov, [facility] [place] [facility] [address] [id number], [place] [address] Nov, [facility] [place] [facility] [address] [id number], [place] [address]- [address] Nov, [facility] [place] [facility] [address] [id number], [place] [address] 30 Oct, 2011 [facility] [place] [facility] [address] [id number] [place] [address]- [address] 27 Sep2011 [facility] [place] [facility] [address] [id number], [place] [address] 24 Oct, 2011 [facility] [place] [facility] [address] [id number], [place] [address] 20 Oct, 2011 [facility] [place] [facility] [address] [id number], [place] [address] Oct, [facility] [place] [facility] [address] [id number] [place] [address]- 75[address] Oct, [facility] [place] [facility] [address] [id number] [place] [address]- 3481 Sep, [facility] [place] [facility] [address] [id number] [place] [address]- 5344 Sep, [facility] [place] [facility] [address] [id number] [place] [address]- 1832 Sep, [facility] [place] [facility] [address] [id number] [place] [address]- 0378 Sep, [facility] [place] [facility] [address] [id number] [place] [address]- 5911 Aug, [facility] [place] [facility] [address] [id number] [place] [address]- 4294 Aug, [facility] [place] [facility] [address] [id number] [place] [address]- 5240 Aug, [facility] [place] [facility] [address] [id number] [place] [address]- 4474 Jul, [facility] [place] [facility] [address] [id number] [place] [address]- 73[address] Jul, [facility] [place] [facility] [address] [id number] [place] [address]- 5235 Jul, [facility] [place] [facility] [address] [id number] [place] [address]- 7140 Jul, [facility] [place] [facility] [address] [id number] [place] [address]- 5777 June, [facility] [place] [facility] [address] [id number] [place] [address]- 9431 June, [facility] [place] [facility] [address] [id number] [place] [address]- 9636 June, [facility] [place] [facility] [address] [id number] [place] [address]- 4120 June, [facility] [place] [facility] [address] [id number] [place] [address]- 7237 June, [facility] [place] [facility] [address] [id number] [place] [address]- 2606 June, [facility] [place] [facility] [address] [id number] [place] [address]- 2336 May, [facility] [place] [facility] [address] [id number] [place] [address]- 9451 May, [facility] [place] [facility] [address] [id number] [place] [address]- 7930 May, [facility] [place] [facility] [address] [id number] [place] [address]- 1069 May, [facility] [place] [facility] [address] [id number] [place] [address]- 5901 May, [facility] [place] [facility] [address] [id number] [place] [address]- 0491 May, [facility] [place] [facility] [address] [id number] [place] [address]- 5273 May, [facility] [place] [facility] [address] [id number] [place] [address]- 0649 May, [facility] [place] [facility] [address] [id number] [place] [address]- 7597 May, [facility] [place] [facility] [address] [id number] [place] [address]- 1759 Apr, [facility] [place] [facility] [address] [id number] [place] [address]- 4967 Mar, [facility] [place] [facility] [address] [id number] [place] [address]- 4340 Mar, [facility] [place] [facility] [address] [id number] [place] [address]- 7037 Mar, [facility] [place] [facility] [address] [id number] [place] [address]- 5885 Mar, [facility] [place] [facility] [address] [id number] [place] [address]- 8695 Feb, [facility] [place] [facility] [address] [id number] [place] [address]- 4625 Feb, [facility] [place] [facility] [address] [id number] [place] [address]- 3585 Feb, [facility] [place] [facility] [address] [id number] [place] [address]- 8909 Jan, [facility] [place] [facility] [address] [id number] [place] [address]- 9461 Jan, [facility] [place] [facility] [address] [id number] [place] [address]- 1460 14 Jan, 2011 [facility] [place] [facility] [address] [id number] [place] [address]- 4440 29 Dec, 2010 [facility] [place] [facility] [address] [id number] [place] [address]- 9050 28 Dec, 2010 [facility] [place] [facility] [address] [id number] [place] [address]- 8280 16 Dec, 2010 [facility] [place] [facility] [address] [id number], [place] [address]- [address] 15 Dec, 2010 [facility] [place] [facility] [address] [id number], [place] [address]- 8536 31 Nov, 2010 [facility] [place] [facility] [address] [id number] [place] [address]- 8810 31 Nov, 2010 [facility] [place] [facility] [address] [id number] [place] [address]- 5491 19 Nov, 2010 [facility] [place] [facility] [address] [id number] [place] [address]- 4910 18 Nov, 2010 [facility] [place] [facility] [address] [id number] [place] [address]- 1582 13 Oct, 2010 [facility] [address] [id number] [place] [address]- 4154 20 Jul, 2010 [facility] [place] [facility] [address] [id number] [place] [address]- 0736 13 Jan, 2010 [facility] [address] [id number] [place] [address]- 8476 30 Dec, 2009 [facility] [place] [facility] [address] [id number] [place] [address] Dec, [facility] [address] [id number] [place] [address], [place] [address] Dec, [facility] [address] [id number] [place] [address] Dec, [facility] [address] [id number] [place] [address] Dec, [facility] [address] [id number] [place] [address] Dec, [facility] [address] [id number] [place] [address] Nov, [facility] [address] [id number] [place] [address] Nov, [facility] [address] [id number] [place] [address] Nov, [facility] [address] [id number] [place] [address] Apr, [facility] [place] [facility] [address] [id number] [place] [address] 17 Apr, 2009 [facility] [place] [facility] [address] [id number] [place] [address] 29 Jan, 2009 [facility] [place] [facility] [address] [id number] [place] [address] Jan, [facility] [place] [facility] [address] [id number], [place] [address] Jan, [facility] [place] [facility] [address] [id number] [address] 17 Jan, 2009 [facility] [place] [facility] [address] [id number], [place] [address] 14 Jan, 2009 [facility] [place] [facility] [address] [id number][place] [address] Jan, [facility] [place] [facility] [address] [id number] [place] [address] 30 Dec, 2008 [facility] [place] [facility] [address] [id number], [place] [address] Dec, [facility] [place] [facility] [address] [id number], [place] [address] 18 Dec, 2008 [facility] [place] [facility] [address] [id number], [place] [address] Dec, [facility] [place] [facility] [address] [id number], [place] [address] Dec, [facility] [place] [facility] [address] [facility] [id number], [place] [address] Dec, [facility] [place] [facility] [address] [id number], [place] [address] Nov, [facility] [place] [facility] [address] [id number], [place] [address] Nov, [facility] [place] [facility] [address] [id number], [place] [address] 15 Aug, 2008 [facility] [place] [facility] [address] [id number], [place] [address] Jul, [facility] [place] [facility] [address] [id number][place] [address] June, [facility] [place] [facility] [address] [id number], [place] [address] Apr, IMMUNIZATIONS No Known Immunizations SOCIAL HISTORY [...] of loosened hardware/hip replacement ( [facility] in [place]) 09/2008 Hospitalization History in pt rehab s/p left hip repair 09/2008-11/2008 Hospitalization History [facility] 07/2009
--- OUTSIDE RECORDS SUMMARY | 2017-10-26 14:02 | XMS REPORT ---
Author Author KONGBABAK KIM [facility] Address [address] [place] [address] Care Team Providers Care Nurse Advocate Name Role Phone BABAK TRIANA Unavailable PROBLEMS Type Condition ICD9-CM Code OXA82-OI Code Onset Dates Condition Status SNOMED Code Problem 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 Active 975729293 Problem Generalized osteoarthritis M15.9 Active 112788283 Problem Meningioma D32.9 Active 300933830 Problem Other chronic pain G89.29 Active 93546108 Problem Panic attacks F41.0 Active 917104263 Problem Generalized anxiety disorder F41.1 Active 312742477 Problem Dementia without behavioral disturbance, unspecified dementia type F03.90 Active 33923157 Problem Seasonal allergic rhinitis due to other allergic trigger J30.89 Active 937358381 Problem Anxiety disorder, unspecified F41.9 Active 356912941 ALLERGIES No Information ENCOUNTERS Encounter Location Date Diagnosis [place] [address] [address] May, Other chronic pain G89.29 and Generalized anxiety disorder F41.1 [place] [address] [place] [id number] [place] [address] 11077- 5335 Apr, Housing problems Z59.9 and Panic attacks F41.0 [facility] [address] [place] [id number] [place] [address] 17079- 4668 Mar, Panic attacks F41.0 [place] [address] 21683- 1749 Feb, [place] [address] [place] [id number] [place] [address] 55971- 7726 Feb, Panic attacks F41.0 [place] [address] 23108- 2600 Feb, Pain in right knee M25.561 ; Pain in left knee M25.562 ; Other chronic pain G89.29 ; Housing problems Z59.9 ; Dementia without behavioral disturbance, unspecified dementia type F03.90 ; Generalized anxiety disorder F41.1 and Advance directive declined by patient Z78.9 [facility] [address] [place] [id number] [place] [address] 33990- 4928 Jan, Panic attacks F41.0 [place] [address] [place] [id number] [place] [address] 19121- 5587 Jan, Panic attacks F41.0 [place] [address] 91521- 7655 Dec, Panic attacks F41.0 [facility] [address] [place] [id number] [place] [address] 41329 -2793 Nov, Allergic contact dermatitis due to cosmetics L23.2 [place] [address] [place] [id number] [place] [address] 68328- 5554 Nov, Panic attacks F41.0 [place] [address] [place] [id number] [place] [address] 69804- 1634 Oct, Panic attacks F41.0 [place] [address] [place] [id number] [place] [address] 81376- 4438 Sep, Panic attacks F41.0 ; Insect bite, initial encounter W57.XXXA and 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 [place] [address] [place] [id number] [place] [address] 72459- 1822 Sep, [place] [address] [place] [id number] [place] [address] 15021- 4367 Aug, Generalized anxiety disorder F41.1 [place] [address] [place] [id number] [place] [address] 01743- 7781 Jul, [facility] [address] [place] [id number] [place] [address] 95164 -2191 June, Seasonal allergic rhinitis due to other allergic trigger J30.89 [facility] [address] [place] [id number] [place] [address] 10406- 9509 June, [facility] [address] [place] [id number] [place] [address] 77148- 9102 June, [facility] [address] [place] [id number] [place] [address] 08620 -3628 June, Dysuria R30.0 and RLQ abdominal pain R10.31 [facility] [address] [place] [id number] [place] [address] 71826- 3273 May, Generalized anxiety disorder F41.1 ; Generalized osteoarthritis M15.9 and Dementia without behavioral disturbance, unspecified dementia type F03.90 [facility] [address] [place] [id number] [place] [address] 85722- 9149 May, [facility] [address] [place] [id number] [place] [address] 10783- 9640 May, [facility] [address] [place] [id number] [place] [address] 22206- 8939 May, [facility] [address] [place] [id number] [place] [address] 02032- 1600 Apr, [facility] [address] [place] [id number] [place] [address] 71973- 9869 Apr, Generalized anxiety disorder F41.1 [facility] [address] [place] [id number] [place] [address] 05231- 0996 Apr, [facility] [address] [place] [id number] [place] [address] 98073- 8080 Apr, [facility] [address] [place] [id number] [place] [address] 77604- 6890 Apr, [facility] [address] [place] [id number] [place] [address] 03412- 7578 Apr, Generalized anxiety disorder F41.1 [facility] [address] [place] [address] 6002 Mar, [facility] [id number] [place] [address], [place] [address]- 2266 Mar, [facility] [address] [place] [id number] [place] [address]- 2543 Mar, [facility] [id number] [place] [address] 01254- 2542 Mar, [facility] [id number] [place] [address] 47817- 9604 Mar, Generalized anxiety disorder F41.1 [facility] [address] [place] [id number] [place] [address] 16611- 0204 Feb, Anxiety disorder, unspecified F41.9 [facility] [address] [place] [address] 08013- 4119 Feb, [facility] [address] [address]- 5040 Feb, [facility] [id number] [place] [address] 17978- 7852 Feb, [facility] [address] [address]49 Feb, Urinary frequency R35.0 and Acute cystitis without hematuria N30.00 [facility] [address] [address]- 6424 Feb, [facility] [address] [address]- 4556 Jan, [facility] [address] [place] [id number] [place] [address] 23513- 0014 Jan, [facility] [address] [address]- 3068 Dec, [facility] [address] [place] [address] 09021- 4515 14 Dec, 2015 [facility] [id number] [address]- 9761 Dec, Edema, unspecified type R60.9 [facility] [address] [place] [id number] [address]- 3768 Dec, [facility] [id number] [place] [address] 43543- 3931 Dec, [facility] [address] [place] [id number] [place] [address] 50765- 9039 30 Oct, 2015 Generalized anxiety disorder F41.1 [facility] [id number] [place] [address], [place] [address]- 3505 20 Oct, 2015 [facility] [id number] [place] [address] 68907- 2993 16 Oct, 2015 [facility] [address] [place] [id number] [place] [address] 27470- 0772 15 Oct, 2015 [facility] [address] [address]- 6225 Oct, [facility] [address] [address]- 6201 Aug, Anxiety disorder, unspecified F41.9 [facility] [id number] [address]- 8259 Jul, Anxiety disorder, unspecified F41.9 [facility] [address] [address]- 7409 Jul, Generalized anxiety disorder F41.1 [facility] [address] [address]- 2906 Jul, [facility] [address] [place] [id number] [address]- 4915 June, [facility] [address] [address]- 9574 June, [facility] [id number] [place] [address] 43625- 6461 June, [facility] [address] [place] [id number] [place] [address] 34704- 1543 June, [facility] [address] [place] [id number] [place] [address] 62105- 6181 May, [facility] [address] [place] [id number] [place] [address] 85677 -2316 May, Dementia without behavioral disturbance, unspecified dementia type F03.90 and Generalized osteoarthritis M15.9 [facility] [address] [place] [id number] [place] [address] 21511- 8937 May, Generalized osteoarthritis M15.9 and 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 [facility] [address] [place] [id number] [place] [address] 80444- 6489 Apr, [facility] [address] [place] [id number] [place] [address] 29828- 6836 Apr, [facility] [address] [place] [id number] [place] [address] 20821- 9739 Apr, [facility] [address] [place] [id number] [place] [address] 45818- 7430 Mar, [facility] [address] [place] [address] 95612- 8978 Mar, [facility] [address] [place] [id number] [place] [address] 38950- 6614 Mar, Generalized anxiety disorder F41.1 [facility] [address] [place] [id number] [place] [address] 38577- 5032 Feb, Other infective acute otitis externa of right ear H60.391 [facility] [address] [place] [id number] [place] [address] 98070- 5071 Dec, Dysuria R30.0 ; Generalized osteoarthritis M15.9 and Gastroesophageal reflux disease, esophagitis presence not specified K21.9 [facility] [address] [place] [id number] [place] [address] 77462- 0423 Dec, [facility] [address] [place] [id number] [place] [address] 10991- 7980 Dec, Generalized anxiety disorder F41.1 ; Encounter for immunization Z23 and Dementia F03.90 [facility] [address] 53400- 8913 Nov, [facility] [address] [place] [id number] [place] [address] 57287- 0357 Oct, [facility] [address] [place] [id number] [place] [address] 28625- 7318 Oct, 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 ; Chronic pain 338.29 ; Anxiety 300.00 and Dementia 294.20 [place] [address] [place] [id number] [place] [address] 15055- 2602 Oct, [facility] [address] [place] [id number] [place] [address] 58852- 7571 Aug, Generalized anxiety disorder 300.02 and Dementia 294.20 [facility] [address] [place] [id number] [place] [address] 16332- 6267 Aug, [facility] [address] [place] [id number] [place] [address] 77170- 6909 Aug, Anxiety 300.00 and Chronic pain 338.29 [facility] [address] [place] [id number] [place] [address] 72446- 6431 Jul, [facility] [address] [place] [id number] [place] [address] 42493- 7977 Jul, [facility] [address] [place] [id number] [place] [address] 70867- 0690 June, [facility] [address] [place] [id number] [place] [address] 52438- 8312 June, Anxiety, generalized 300.02 ; Dementia 294.20 and No condition on Shanks II V71.09 [facility] [place] [facility] [address] [id number] [place] [address]- 9065 14 May, 2014 [facility] [place] [facility] [address] [id number] [place] [address]- 4496 May, [facility] [place] [facility] [address] [id number] [place] [address]- 6135 Apr, [facility] [place] [facility] [address] [id number] [place] [address]- 1226 Apr, [facility] [place] [facility] [address] [id number] [place] [address]- 0527 Apr, [facility] [place] [facility] [address] [id number] [place] [address]- 6573 Apr, [facility] [place] [facility] [address] [facility] [id number] [place] [address]- 9894 Apr, [facility] [place] [facility] [address] [facility] [id number] [place] [address]- 8590 Apr, [facility] [place] [facility] [address] [facility] [id number] [place] [address]- 2295 Apr, [facility] [place] [facility] [address] [facility] [id number] [place] [address]- 2348 Apr, [facility] [place] [facility] [address] [facility] [id number] [place] [address]- 7302 Apr, [facility] [place] [facility] [address] [facility] [id number] [place] [address]- 6791 Apr, [facility] [place] [facility] [address] [id number] [place] [address]- 2632 Apr, [facility] [place] [facility] [address] [facility] [id number] [place] [address]- 9976 Apr, [facility] [place] [facility] [address] [facility] [id number] [place] 5129 Apr, [facility] [place] [facility] [address] [id number] [place] [address]- 9403 Apr, [facility] [place] [facility] [address] [id number] [place] [address]- 8792 Apr, [facility] [place] [facility] [address] [id number] [place] [address]- 7086 Apr, [facility] [place] [facility] [address] [facility] [id number] [place] [address]- 6379 Mar, 2014 [facility] [place] [facility] [address] [id number] [place] [address]- 6516 Mar, 2014 [facility] [place] [facility] [address] [id number] [place] [address]- 0060 Mar, 2014 [facility] [place] [facility] [address] [facility] [id number] [place] [address]- 1164 Mar, 2014 [facility] [place] [facility] [address] [facility] [id number] [place] [address]- 6762 Mar, 2014 [facility] [place] [facility] [address] [facility] [id number] [place] [address]- 5117 Mar, 2014 [facility] [place] [facility] [address] [facility] [id number] [place] [address]- 1040 Mar, 2014 [facility] [place] [facility] [address] [facility] [id number] [place] [address]- 1316 Mar, 2014 [facility] [place] [facility] [address] [facility] [id number] [place] [address]- 2540 Mar, 2014 [facility] [place] [facility] [address] [facility] [id number] [place] [address]- 2549 Mar, 2014 [facility] [place] [facility] [address] [facility] [id number] [place] [address]- 0821 Mar, 2014 [facility] [place] [facility] [address] [facility] [id number] [place] [address]- 2545 Mar, 2014 [facility] [place] [facility] [address] [facility] [id number] [place] [address]- 9197 Mar, 2014 [facility] [place] [facility] [address] [id number] [place] [address]- 9786 17 Mar, 2014 [facility] [place] [facility] [address] [id number] [place] [address]- 4546 17 Mar, 2014 [facility] [place] [facility] [address] [facility] [id number] [place] [address]- 7396 Mar, 2014 [facility] [place] [facility] [address] [id number] [place] [address]- 6888 Mar, 2014 [facility] [place] [facility] [address] [id number] [place] [address]- 4706 Mar, 2014 [facility] [place] [facility] [address] [facility] [id number] [place] [address]- 1478 Mar, 2014 [facility] [place] [facility] [address] [facility] [id number] [place] [address]- 8212 Mar, 2014 [facility] [place] [facility] [address] [facility] [id number] [place] [address]- 4882 Mar, 2014 [facility] [place] [facility] [address] [facility] [id number] [place] [address]- 6181 Mar, 2014 [facility] [place] [facility] [address] [facility] [id number] [place] [address]- 7676 Mar, 2014 [facility] [place] [facility] [address] [facility] [id number] [place] [address]- 4500 Mar, 2014 [facility] [place] [facility] [address] [facility] [id number] [place] [address]- 1744 Mar, 2014 [facility] [place] [facility] [address] [facility] [id number] [place] [address]- 0489 Mar, 2014 [facility] [place] [facility] [address] [facility] [id number] [place] [address]- 2595 Feb, [facility] [place] [facility] [address] [facility] [id number] [place] [address]- 4846 Feb, [facility] [place] [facility] [address] [id number] [place] [address]- 6069 Feb, [facility] [place] [facility] [address] [id number] [place] [address]- 4771 Feb, [facility] [place] [facility] [address] [id number] [place] [address]- 4057 Feb, [facility] [place] [facility] [address] [id number] [place] [address]- 9155 Feb, [facility] [place] [facility] [address] [id number] [place] [address]- 5138 Feb, [facility] [place] [facility] [address] [id number] [place] [address]- 1451 Feb, [facility] [place] [facility] [address] [id number] [place] [address]- 9795 Feb, [facility] [place] [facility] [address] [id number] [place] [address]- 9878 Feb, [facility] [place] [facility] [address] [id number] [place] [address]- 6077 Feb, [facility] [place] [facility] [address] [id number] [place] [address]- 8313 Feb, [facility] [place] [facility] [address] [id number] [place] [address]- 8231 Feb, [facility] [place] [facility] [address] [id number] [place] [address]- 7240 Feb, [facility] [place] [facility] [address] [id number] [place] [address]- 5882 Feb, [facility] [place] [facility] [address] [id number] [place] [address]- 2918 Jan, [facility] [place] [facility] [address] [id number] [place] [address]- 0995 Jan, [facility] [place] [facility] [address] [id number] [place] [address]- 9287 Jan, [facility] [place] [facility] [address] [id number] [place] [address]- 9076 Jan, [facility] [place] [facility] [address] [id number] [place] 4146 Jan, [facility] [place] [facility] [address] [id number] [place] [address]- 9986 Jan, [facility] [place] [facility] [address] [id number] [place] [address]- 2805 Jan, [facility] [place] [facility] [address] [id number] [place] [address]- 7064 Jan, [facility] [place] [facility] [address] [id number] [place] [address]- 8824 Jan, [facility] [place] [facility] [address] [id number] [place] [address]- 2953 Jan, [facility] [place] [facility] [address] [id number] [place] [address]- 5326 Jan, [facility] [place] [facility] [address] [id number] [place] [address]- 0428 Jan, [facility] [place] [facility] [address] [id number] [place] [address]- 2650 Jan, [facility] [place] [facility] [address] [id number] [place] [address]- 1475 Jan, [facility] [place] [facility] [address] [id number] [place] [address]- 9215 15 Jan, 2014 [facility] [place] [facility] [address] [id number] [place] 4147 Jan, [facility] [place] [facility] [address] [id number] [place] [address] Jan, [facility] [place] [facility] [address] [id number] [place] [address]- 9464 Jan, [facility] [place] [facility] [address] [id number] [place] [address]- 3275 Jan, [facility] [place] [facility] [address] [id number] [place] 9315 Jan, [facility] [place] [facility] [address] [id number] [place] [address]- 1612 Dec, [facility] [place] [facility] [address] [id number] [place] [address]- 2370 Dec, [facility] [place] [facility] [address] [id number] [place] [address]- [address] Dec, [facility] [place] [facility] [address] [id number] [place] [address] Dec, [facility] [place] [facility] [address] [id number] [place] [address] Dec, [facility] [place] [facility] [address] [id number] [place] [address] Dec, [facility] [place] [facility] [address] [id number] [place] [address] Dec, [facility] [place] [facility] [address] [id number] [place] [address] Nov, [facility] [place] [facility] [address] [id number] [place] [address] Nov, [facility] [place] [facility] [address] [id number] [place] [address] Nov, [facility] [place] [facility] [address] [id number] [place] [address] Nov, [facility] [place] [facility] [address] [id number] [place] [address] 15 Nov, 2013 [facility] [place] [facility] [address] [id number] [place] [address]- [address] 15 Nov, 2013 [facility] [place] [facility] [address] [id number] [place] [address] Nov, [facility] [place] [facility] [address] [id number] [place] [address] Nov, [facility] [place] [facility] [address] [id number] [place] [address]- [address] Nov, [facility] [place] [facility] [address] [id number] [place] [address]- [address] Nov, [facility] [place] [facility] [address] [id number] [place] [address] 29 Oct, 2013 [facility] [place] [facility] [address] [id number] [place] [address]- [address] 29 Oct, 2013 [facility] [place] [facility] [address] [id number] [place] [address]- [address] 15 Oct, 2013 [facility] [place] [facility] [address] [id number] [place] [address]- [address] 15 Oct, 2013 [facility] [place] [facility] [address] [id number] [place] [address]- [address] 15 Oct, 2013 [facility] [place] [facility] [address] [id number] [place] [address]- [address]190 15 Oct, 2013 [facility] [place] [facility] [address] [id number] [place] [address] 10 Oct, 2013 [facility] [place] [facility] [address] [id number] [place] [address] 10 Oct, 2013 [facility] [place] [facility] [address] [id number] [place] [address]- [address] 02 Oct, 2013 [facility] [place] [facility] [address] [id number] [place] [address] Oct, [facility] [place] [facility] [address] [id number] [place] [address] Sep, [facility] [place] [facility] [address] [id number] [place] [address] Sep, [facility] [place] [facility] [address] [id number] [place] [address]- [address] Sep, [facility] [place] [facility] [address] [id number] [place] [address]- [address] Sep, [facility] [place] [facility] [address] [id number] [place] [address]- [address] Sep, [facility] [place] [facility] [address] [id number] [place] [address]- [address] Sep, [facility] [place] [facility] [address] [id number] [place] [address]- [address] Sep, [facility] [place] [facility] [address] [id number] [place] [address]- [address]694 Sep, [facility] [place] [facility] [address] [id number] [place] [address]- [address] Sep, [facility] [place] [facility] [address] [id number] [place] [address]18 Sep, [facility] [place] [facility] [address] [id number] [place] [address]- [address]33 Aug, [facility] [place] [facility] [address] [id number] [place] [address]- [address]061 Aug, [facility] [place] [facility] [address] [id number] [place] [address]- 1488 Aug, [facility] [place] [facility] [address] [id number] [place] [address] Aug, [facility] [place] [facility] [address] [id number] [place] [address]- [address] Aug, [facility] [place] [facility] [address] [id number] [place] [address]- [address] Aug, [facility] [place] [facility] [address] [id number] [place] [address]- 7980 Aug, [facility] [place] [facility] [address] [id number] [place] [address]- 2404 Aug, [facility] [place] [facility] [address] [id number] [place] [address]- [address] 15 Aug, 2013 [facility] [place] [facility] [address] [id number] [place] [address]- [address] 15 Aug, 2013 [facility] [place] [facility] [address] [id number] [place] [address]- [address] 07 Aug, 2013 [facility] [place] [facility] [address] [id number] [place] [address]- [address] 07 Aug, 2013 [facility] [place] [facility] [address] [id number] [place] [address] Jul, [facility] [place] [facility] [address] [id number] [place] [address] 23 Jul, 2013 [facility] [place] [facility] [address] [id number] [place] [address]- 4682 20 Jul, 2013 [facility] [place] [facility] [address] [id number] [place] [address] 6298 Jul, [facility] [place] [facility] [address] [id number] [place] [address]- 7268 20 Jul, 2013 [facility] [place] [facility] [address] [id number] [place] [address]- 7135 20 Jul, 2013 [facility] [place] [facility] [address] [id number] [place] [address]- 9437 17 Jul, 2013 [facility] [place] [facility] [address] [id number] [place] [address]- 6103 16 Jul, 2013 [facility] [place] [facility] [address] [id number] [place] [address] 3839 16 Jul, 2013 [facility] [place] [facility] [address] [id number] [place] [address]- 2569 14 Jul, 2013 [facility] [place] [facility] [address] [id number] [place] [address]- 3399 14 Jul, 2013 [facility] [place] [facility] [address] [id number] [place] [address]- 8738 Jul, [facility] [place] [facility] [address] [id number] [place] [address]- 3024 Jul, [facility] [place] [facility] [address] [id number] [place] [address]- 5743 Jul, [facility] [place] [facility] [address] [id number] [place] [address]- 0468 Jul, [facility] [place] [facility] [address] [id number] [place] [address]- 1752 Jul, [facility] [place] [facility] [address] [id number] [place] [address]- 3717 Jul, [facility] [place] [facility] [address] [id number] [place] [address]- 0921 June, [facility] [place] [facility] [address] [id number] [place] [address]- 3305 June, [facility] [place] [facility] [address] [id number] [place] [address]- 7276 June, [facility] [place] [facility] [address] [id number] [place] [address]- 3004 June, [facility] [place] [facility] [address] [id number] [place] [address]- 1290 June, [facility] [place] [facility] [address] [id number] [place] [address]- 8042 June, [facility] [place] [facility] [address] [id number] [place] [address]- 8095 June, [facility] [place] [facility] [address] [id number] [place] [address]- 8776 June, [facility] [place] [facility] [address] [id number] [place] [address]- 1359 June, [facility] [place] [facility] [address] [id number] [place] [address]- 2132 June, [facility] [place] [facility] [address] [id number] [place] [address]- 2938 June, [facility] [address] [id number] [place] [address]- 2920 June, [facility] [address] [id number] [place] [address]- 4274 June, [facility] [address] [id number] [place] [address]- 5064 June, [facility] [place] [facility] [address] [id number] [place] [address]- 9892 June, [facility] [address] [id number] [place] [address]- 2735 June, [facility] [address] [id number] [place] [address]- 6797 June, [facility] [address] [id number] [place] [address]- 5439 June, [facility] [address] [id number] [place] [address]- 1180 June, [facility] [address] [id number] [place] [address]- 9085 June, [facility] [address] [id number] [place] [address]- 5744 June, [facility] [place] [facility] [address] [id number] [place] [address]- 3525 June, [facility] [place] [facility] [address] [id number] [place] [address]- 0160 June, [facility] [place] [facility] [address] [id number] [place] [address]- 4128 June, [facility] [place] [facility] [address] [id number] [place] [address]- 2812 June, [facility] [place] [facility] [address] [id number] [place] [address]- 2769 June, [facility] [place] [facility] [address] [id number] [place] [address]- 0090 June, [facility] [place] [facility] [address] [id number] [place] [address]- 8815 June, [facility] [place] [facility] [address] [id number] [place] [address]- 5363 June, [facility] [place] [facility] [address] [id number] [place] [address]- 9839 June, [facility] [place] [facility] [address] [id number] [place] [address]- 1524 June, [facility] [place] [facility] [address] [id number] [place] [address]- 0721 June, [facility] [place] [facility] [address] [id number] [place] [address]- 0604 May, [facility] [place] [facility] [address] [id number] [place] [address]- 5915 May, [facility] [place] [facility] [address] [id number] [place] [address]- 8461 May, [facility] [place] [facility] [address] [id number] [place] [address]- 6224 May, [facility] [place] [facility] [address] [id number] [place] [address]- 7706 May, [facility] [place] [facility] [address] [id number] [place] [address]- 0184 May, [facility] [place] [facility] [address] [id number] [place] [address]- 5236 May, [facility] [place] [facility] [address] [id number] [place] [address]- 6860 May, [facility] [place] [facility] [address] [id number] [place] [address]- 5277 May, [facility] [place] [facility] [address] [id number] [place] [address]- 2176 May, [facility] [place] [facility] [address] [id number] [place] [address]- 1153 May, [facility] [place] [facility] [address] [id number] [place] May, [facility] [place] [facility] [address] [id number] [place] [address]- 4646 May, [facility] [place] [facility] [address] [id number] [place] [address]- 8455 May, [facility] [place] [facility] [address] [id number] [place] [address]- 9288 May, [facility] [place] [facility] [address] [id number] [place] [address]- 5786 Apr, [facility] [place] [facility] [address] [id number] [place] [address]- 1003 Apr, [facility] [place] [facility] [address] [id number] [place] [address]- 4875 Apr, [facility] [place] [facility] [address] [id number] [place] [address]- 9837 Apr, [facility] [place] [facility] [address] [id number] [place] [address]- 4708 Apr, [facility] [place] [facility] [address] [id number] [place] [address]- 1227 Apr, [facility] [place] [facility] [address] [id number] [place] [address]- 1064 Mar, [facility] [place] [facility] [address] [id number] [place] [address]- 5226 Mar, [facility] [place] [facility] [address] [id number] [place] [address]- 8356 Mar, [facility] [place] [facility] [address] [id number] [place] [address]- 4494 Mar, [facility] [place] [facility] [address] [id number] [place] [address]- 9337 Mar, [facility] [place] [facility] [address] [id number] [place] [address]- 8413 Mar, [facility] [place] [facility] [address] [id number] [place] [address]- 1962 Mar, [facility] [place] [facility] [address] [id number] [place] [address]- 7687 Mar, [facility] [place] [facility] [address] [id number] [place] [address]- 0948 Feb, [facility] [place] [facility] [address] [id number] [place] [address]- 2059 Feb, [facility] [place] [facility] [address] [id number] [place] [address]- 2132 Feb, [facility] [place] [facility] [address] [id number] [place] [address]- 9522 Feb, [facility] [place] [facility] [address] [id number] [place] [address]- 3444 Feb, [facility] [place] [facility] [address] [id number] [place] [address]- 7484 Feb, [facility] [place] [facility] [address] [id number] [place] [address]- 3917 Feb, [facility] [place] [facility] [address] [id number] [place] [address]- 7472 Feb, [facility] [place] [facility] [address] [id number] [place] [address]- 7650 Feb, [facility] [place] [facility] [address] [id number] [place] [address]- 0040 Feb, [facility] [place] [facility] [address] [id number] [place] [address]- 7584 Jan, [facility] [place] [facility] [address] [id number] [place] [address]- 2546 Jan, [facility] [place] [facility] [address] [id number] [place] [address]- 5814 Jan, [facility] [place] [facility] [address] [id number] [place] [address]- 0450 Jan, [facility] [place] [facility] [address] [id number] [place] [address]- 4460 Jan, [facility] [place] [facility] [address] [id number] [place] [address]- 7900 Jan, [facility] [place] [facility] [address] [id number] [place] [address] Jan, [facility] [place] [facility] [address] [id number] [place] [address] Jan, [facility] [place] [facility] [address] [id number] [place] [address]- 1707 Dec, [facility] [place] [facility] [address] [id number] [place] [address]- 2398 Dec, [facility] [place] [facility] [address] [id number] [place] [address]- 2435 Dec, [facility] [place] [facility] [address] [id number] [place] [address]- 0045 Dec, [facility] [place] [facility] [address] [id number] [place] [address]- 6490 Dec, [facility] [place] [facility] [address] [id number] [place] [address]- 3588 Dec, [facility] [place] [facility] [address] [id number] [place] [address]- 9177 Dec, [facility] [place] [facility] [address] [id number] [place] [address]- 2025 Dec, [facility] [place] [facility] [address] [id number] [place] [address]- 7827 Nov, [facility] [place] [facility] [address] [id number] [place] [address]- 2091 22 Nov, 2012 [facility] [address] [id number] [place] [address]- 6500 14 Nov, 2012 [facility] [place] [facility] [address] [id number] [place] [address]- 1515 14 Nov, 2012 [facility] [address] [id number] [place] [address]- 1908 09 Nov, 2012 [facility] [place] [facility] [address] [id number] [place] [address]- 9761 Nov, [facility] [place] [facility] [address] [id number] [place] [address]- 6777 Nov, [facility] [place] [facility] [address] [id number] [place] [address]- 4310 10 Oct, 2012 [facility] [place] [facility] [address] [id number] [place] [address]- 7949 10 Oct, 2012 [facility] [place] [facility] [address] [id number] [place] [address]- 6762 05 Oct, 2012 [facility] [place] [facility] [address] [id number] [place] [address]- 8913 Sep, [facility] [place] [facility] [address] [id number] [place] [address]- 0242 Sep, [facility] [place] [facility] [address] [id number] [place] [address]- 1512 Sep, [facility] [place] [facility] [address] [id number] [place] [address]- 6051 Sep, [facility] [place] [facility] [address] [id number] [place] [address]- 8113 Aug, [facility] [place] [facility] [address] [id number] [place] [address]- 2546 17 Aug, 2012 [facility] [place] [facility] [address] [id number] [place] [address]- 6072 Aug, [facility] [address] [id number] [place] [address]- 2263 Aug, [facility] [place] [facility] [address] [id number] [place] [address]- 7649 Aug, [facility] [place] [facility] [address] [id number] [place] [address]- 0952 Jul, [facility] [place] [facility] [address] [id number] [place] [address]- 2942 Jul, [facility] [address] [id number] [place] [address]- 7875 Jul, [facility] [place] [facility] [address] [id number] [place] [address]- 2114 Jul, [facility] [place] [facility] [address] [id number] [place] [address]- 6079 Jul, [facility] [place] [facility] [address] [id number] [place] [address]- 7833 June, [facility] [place] [facility] [address] [id number] [place] [address]- 2390 June, [facility] [place] [facility] [address] [id number] [place] [address]- 9190 June, [facility] [place] [facility] [address] [id number] [place] [address]- 0641 June, [facility] [place] [facility] [address] [id number] [place] [address]- 4014 June, [facility] [place] [facility] [address] [id number] [place] [address]- 1474 May, [facility] [place] [facility] [address] [id number] [place] [address]- 7219 May, [facility] [place] [facility] [address] [id number] [place] [address]- 5182 May, [facility] [place] [facility] [address] [id number] [place] [address]- 3119 17 May, 2012 [facility] [address] [facility] [id number] [place] [address]- 8408 16 May, 2012 [facility] [place] [facility] [address] [facility] [id number] [place] [address]- 8246 10 May, 2012 [facility] [id number] [place] [address]- 3736 04 May, 2012 [facility] [address] [facility] [id number] [place] [address]- 2848 19 Apr, 2012 [facility] [id number] [place] [address]- 8490 11 Apr, 2012 [facility] [id number] [place] [address]- 7560 08 Apr, 2012 [facility] [id number] [place] [address]- 7146 26 Mar, 2012 [facility] [id number] [place] [address]- 3417 25 Mar, 2012 [facility] [id number] [place] [address]- 2692 20 Mar, 2012 [facility] [id number] [place] [address]- 3973 19 Mar, 2012 [facility] [place] [facility] [id number] [place] [address]- 5716 13 Mar, 2012 [facility] [place] [facility] [address] [id number] [address] 2542 13 Mar, 2012 [facility] [place] [facility] [id number] [place] [address]- 2636 07 Mar, 2012 [facility] [place] [facility] [id number] [place] [address]- 0836 07 Mar, 2012 [facility] [place] [facility] [id number] 8775 Feb, [facility] [address] [id number] [place] [address]- 4323 29 Feb, 2012 [facility] [place] [facility] [address] [id number] [place] [address]- 1196 28 Feb, 2012 [facility] [place] [facility] [address] [id number] [place] [address]- 7202 26 Feb, 2012 [facility] [place] [facility] [address] [id number] [place] [address]- 5750 18 Feb, 2012 [facility] [address] [id number] [place] [address]- 3505 15 Feb, 2012 [facility] [place] [facility] [address] [id number] [place] [address]- 9399 14 Feb, 2012 [facility] [place] [facility] [address] [id number] [place] [address]- 4804 27 Jan, 2012 [facility] [place] [facility] [address] [id number] [place] [address]- 0741 Jan, [facility] [place] [facility] [address] [id number] [place] [address]- 3227 Jan, [facility] [place] [facility] [address] [id number] [place] [address]- 3397 Jan, [facility] [place] [facility] [address] [id number] [place] [address]- 0150 Jan, [facility] [place] [facility] [address] [id number] [place] [address]- 1400 27 Jan, 2012 [facility] [place] [facility] [address] [id number] [place] [address]- 3343 Jan, [facility] [place] [facility] [address] [id number] [place] [address]- 7452 Jan, [facility] [place] [facility] [address] [id number] [place] [address]- 7725 13 Jan, 2012 [facility] [place] [facility] [address] [id number] [place] [address]- 0421 13 Jan, 2012 [facility] [place] [facility] [address] [id number] [place] [address]- 5502 11 Jan, 2012 [facility] [place] [facility] [address] [id number] [place] [address]- 0416 11 Jan, 2012 [facility] [place] [facility] [address] [facility] [id number] [place] [address]- 6386 10 Jan, 2012 [facility] [place] [facility] [address] [id number] [place] [address]- 0579 10 Jan, 2012 [facility] [place] [facility] [address] [facility] [id number] [place] [address]- 5646 29 Dec, 2011 [facility] [place] [facility] [address] [id number] [place] [address]- 8693 29 Dec, 2011 [facility] [place] [facility] [id number] [place] [address]- 2576 Dec, [facility] [place] [facility] [address] [id number] [place] [address]- 3616 Dec, [facility] [place] [facility] [address] [facility] [id number] [place] [address]- 0283 Dec, [facility] [place] [facility] [address] [facility] [id number] [place] [address]- 2303 27 Dec, 2011 [facility] [place] [facility] [address] [id number] [place] [address]- 4157 Dec, [facility] [place] [facility] [address] [id number] [place] [address]- 2549 Dec, [facility] [place] [facility] [address] [id number] [place] [address]- 9927 13 Dec, 2011 [facility] [place] [facility] [address] [facility] [id number] [place] [address]- 5395 13 Dec, 2011 [facility] [place] [facility] [address] [id number] [address]- 7659 13 Dec, 2011 [facility] [place] [facility] [address] [id number] [place] [address]- 2065 Dec, [facility] [place] [facility] [address] [id number] [place] [address]- 8469 Dec, [facility] [place] [facility] [address] [id number] [place] [address]- 9264 Dec, [facility] [place] [facility] [address] [id number] [place] [address]- 8942 Dec, [facility] [place] [facility] [address] [id number] [place] [address]- 0027 Dec, [facility] [place] [facility] [address] [id number] [place] [address]- 9683 Dec, [facility] [place] [facility] [address] [id number] [place] [address]- 4936 Dec, [facility] [place] [facility] [address] [id number] [place] [address] Dec, [facility] [place] [facility] [address] [id number] [place] [address] Dec, [facility] [place] [facility] [address] [id number] [place] [address] Nov, [facility] [place] [facility] [address] [id number] [place] [address] Nov, [facility] [place] [facility] [address] [id number] [place] [address] 6721 30 Nov, 2011 [facility] [place] [facility] [address] [id number] [place] [address]857 Nov, [facility] [place] [facility] [address] [id number] [place] [address]- [address]233 24 Nov, 2011 [facility] [place] [facility] [address] [id number] [place] [address]- [address]245 24 Nov, 2011 [facility] [place] [facility] [address] [id number] [place] [address]398 15 Nov, 2011 [facility] [place] [facility] [address] [id number] [place] [address]- [address]99 15 Nov, 2011 [facility] [place] [facility] [address] [id number] [place] [address]- [address] 10 Nov, 2011 [facility] [place] [facility] [address] [id number] [place] [address]- 0295 10 Nov, 2011 [facility] [place] [facility] [address] [id number] [place] [address]- 2876 Nov, [facility] [place] [facility] [address] [id number] [place] [address]- [address] Nov, [facility] [place] [facility] [address] [id number] [place] [address]- 1235 04 Nov, 2011 [facility] [place] [facility] [address] [id number] [place] [address]- 4218 30 Oct, 2011 [facility] [place] [facility] [address] [id number] [place] [address]- 6755 27 Oct, 2011 [facility] [place] [facility] [address] [id number] [place] [address]- 0968 24 Oct, 2011 [facility] [place] [facility] [address] [id number] [place] [address]- 4652 20 Oct, 2011 [facility] [place] [facility] [address] [id number] [place] [address]- [address] 11 Oct, 2011 [facility] [place] [facility] [address] [id number] [place] [address]- 7261 11 Oct, 2011 [facility] [place] [facility] [address] [id number] [place] [address]- 6029 24 Sep, 2011 [facility] [place] [facility] [address] [id number] [place] [address]- 9204 23 Sep, 2011 [facility] [place] [facility] [address] [id number] [place] [address]- 4371 16 Sep, 2011 [facility] [place] [facility] [address] [id number] [place] [address] 2217 Sep, [facility] [place] [facility] [address] [id number] [place] [address]- [address]25 Aug, [facility] [place] [facility] [address] [id number] [place] [address]406 Aug, [facility] [place] [facility] [address] [id number] [place] [address]- 8656 Aug, [facility] [place] [facility] [address] [id number] [place] [address]- [address] Jul, [facility] [place] [facility] [address] [id number] [place] [address]- 7929 Jul, [facility] [place] [facility] [address] [id number] [place] [address]- 4813 Jul, [facility] [place] [facility] [address] [id number] [place] [address] 98[address] Jul, [facility] [place] [facility] [address] [id number] [place] [address] 67[address] June, [facility] [place] [facility] [address] [id number] [place] [address] 0651 June, [facility] [place] [facility] [address] [id number] [place] [address]- 1279 June, [facility] [place] [facility] [address] [id number] [place] [address]- 1289 June, [facility] [place] [facility] [address] [id number] [place] [address]- 265[address] June, [facility] [place] [facility] [address] [id number] [place] [address]- 3434 June, [facility] [place] [facility] [address] [id number] [place] [address] 5716 May, [facility] [place] [facility] [address] [id number] [place] [address]- 4938 May, [facility] [place] [facility] [address] [id number] [place] [address]- [address]379 May, [facility] [place] [facility] [address] [id number] [place] [address]- 0284 24 May, 2011 [facility] [place] [facility] [address] [id number] [place] [address]- 8235 May, [facility] [place] [facility] [address] [id number] [place] [address]- 2897 May, [facility] [address] [id number] [place] [address]- 9094 May, [facility] [place] [facility] [address] [id number] [place] [address]- 4234 May, [facility] [address] [id number] [place] [address]- 8165 May, [facility] [address] [id number] [place] [address]- 5495 Apr, [facility] [place] [facility] [address] [id number] [place] [address]- 1698 Mar, [facility] [address] [id number] [place] [address]- 7[address] Mar, [facility] [address] [id number] [place] [address]- 0806 Mar, [facility] [place] [facility] [address] [id number] [place] [address]- 36[address] Mar, [facility] [place] [facility] [address] [id number] [place] [address]- 2794 Feb, [facility] [place] [facility] [address] [id number] [place] [address]- 0236 Feb, [facility] [place] [facility] [address] [id number] [place] [address]- 0868 Feb, [facility] [place] [facility] [address] [id number] [place] [address]- 0044 28 Jan, 2011 [facility] [place] [facility] [address] [id number] [place] [address]- 1274 21 Jan, 2011 [facility] [place] [facility] [address] [id number] [place] [address]- 0664 14 Jan, 2011 [facility] [place] [facility] [address] [facility] [id number] [place] [address]- 3470 29 Dec, 2010 [facility] [place] [facility] [address] [id number] [place] [address]- 2203 28 Dec, 2010 [facility] [place] [facility] [id number] [place] [address], [place] [address]- [address]391 16 Dec, 2010 [facility] [place] [facility] [address] [id number] [place] [address]- 1655 15 Dec, 2010 [facility] [place] [facility] [address] [facility] [id number] [place] [address], [place] [address]- 8639 31 Nov, 2010 [facility] [place] [facility] [address] [id number] [place] [address]- 2997 31 Nov, 2010 [facility] [place] [facility] [address] [id number] [place] [address]- 2410 19 Nov, 2010 [facility] [place] [facility] [address] [facility] [id number] [place] [address]- 6072 18 Nov, 2010 [facility] [place] [facility] [address] [id number] [place] [address]- 3246 13 Oct, 2010 [facility] [place] [facility] [address] [id number] [place] [address]- 9530 20 Jul, 2010 [facility] [place] [facility] [address] [id number] [place] [address] 13 Jan, 2010 [facility] [place] [facility] [address] [facility] [id number] [place] [address] 30 Dec, 2009 [facility] [place] [facility] [address] [facility] [id number] [place] [address] 09 Dec, 2009 [facility] [place] [facility] [address] [id number] [place] [address] Dec, [facility] [place] [facility] [address] [id number] [place] [address] Dec, [facility] [place] [facility] [address] [id number] [place] [address] Dec, [facility] [place] [facility] [address] [id number] [place] [address] Dec, [facility] [place] [facility] [address] [id number] [place] [address] Nov, [facility] [place] [facility] [address] [id number] [place] [address] Nov, [facility] [place] [facility] [address] [id number] [place] [address] Nov, [facility] [place] [facility] [address] [id number] [place] [address] Apr, [facility] [place] [facility] [address] [id number] [place] [address] Apr, [facility] [place] [facility] [address] [id number] [place] [address] 254 29 Jan, 2009 [facility] [place] [facility] [address] [id number] [place] [address] 28 Jan, 2009 [facility] [place] [facility] [address] [id number] [place] [address] 23 Jan, 2009 [facility] [place] [facility] [address] [id number] [place] [address] 17 Jan, 2009 [facility] [place] [facility] [address] [id number] [place] [address] 14 Jan, 2009 [facility] [place] [facility] [address] [id number] [place] [address] Jan, [facility] [place] [facility] [address] [id number] [place] [address] Dec, [facility] [id number] [address] Dec, [facility] [id number] [place] [address] Dec, [facility] [id number] [place] [address] Dec, [facility] [id number] [place] [address] Dec, [facility] [id number] [place] [address] Dec, [facility] [id number] [place] [address]- [address] Nov, [facility] [id number] [place] [address]- [address] Nov, [facility] [id number] [place] [address] Aug, [facility] [id number] [place] [address] Jul, [facility] [id number] [place] [address] June, [facility] [id number] [place] [address] Apr, IMMUNIZATIONS No Known Immunizations SOCIAL HISTORY Never Assessed REASON FOR VISIT refill PLAN OF CARE VITAL SIGNS MEDICATIONS Medication Instructions Dosage Frequency Start Date End Date Duration Status BusPIRone HCl 5 mg TAKE ONE TABLET BY MOUTH TWICE DAILY 30 Active RESULTS No Results PROCEDURES No [...] of loosened hardware/hip replacement ( [facility] in [place]) 09/2008 Hospitalization History in pt rehab s/p left hip repair 09/2008-11/2008 Hospitalization History [facility] 07/2009
--- OUTSIDE RECORDS SUMMARY | 2017-10-26 14:03 | XMS REPORT ---
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 845552758 Problem Panic attacks F41.0 Active 740976612 Problem Seasonal allergic rhinitis due to other allergic trigger J30.89 Active 531246027 Problem Dementia without behavioral disturbance, unspecified dementia type F03.90 Active 21645090 Problem 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
--- OUTSIDE RECORDS SUMMARY | 2017-10-26 14:16 | XMS REPORT | Continuity of Care Document ---
Author Author [facility] Address Unknown Phone Unavailable Allergies Active Description Code Type Severity Reaction Onset Reported/Identified Relationship to Patient Clinical Status Yes NO KNOWN DRUG ALLERGIES NO KNOWN DRUG ALLERG UNKNOWN Yes No Known Drug Allergies [id number] Drug Allergy Mild N/A 04/26/2009 Medications Medication Packaging Start Date Stop Date Route Dosage Sig BUSPIRONE TAB 5 MG (BUSPAR) MG 03/14/2016 [id number]&[id number] Problems Date Dx Coded Attending Type Code [...] ALANA GOLD APRN S 715.90 OSTEOARTHRITIS 09/08/2007 ALANA GOLD APRN S 733.90 DISORDER OF BONE AND CARTILAGE UNSPECIFIED 09/08/2007 CHINA CANO ARGELIA K 702.0 ACTINIC KERATOSIS 09/08/2007 CHINA [...] TRIANA MD N 702.0 ACTINIC KERATOSIS 09/08/2007 BBAAK TRIANA MD N 715.90 OSTEOARTHRITIS 09/08/2007 BABAK TRIANA MD N 733.90 DISORDER OF BONE AND CARTILAGE UNSPECIFIED 09/08/2007 ASIF POLANCO ALANA S 702.0 ACTINIC KERATOSIS 09/08/2007 MITALI GOLD APRNNDA S 715.90 OSTEOARTHRITIS 09/08/2007 MITALI GOLD APRNNDA S 733.90 DISORDER OF BONE AND CARTILAGE UNSPECIFIED 09/08/2007 CHINA DO ARGELIA K 702.0 ACTINIC KERATOSIS 09/08/2007 CHINA CANO ARGELIA K 715.90 OSTEOARTHRITIS 09/08/2007 CHINA CANO ARGELIA K 733.90 DISORDER OF BONE AND CARTILAGE UNSPECIFIED 09/08/2007 CHINA CANO ARGELIA K 702.0 ACTINIC KERATOSIS 09/08/2007 CHINA [...] DISORDER OF BONE AND CARTILAGE UNSPECIFIED 11/11/2007 TIN ATKINSON DOA K 716.90 ARTHRITIS 11/11/2007 TIN ATKINSON DOA K V72.31 Pelvic Exam (Internal) 11/11/2007 TIN ATKINSON DOA K 716.90 ARTHRITIS 11/11/2007 ATKINSON TIN CANOA K V72.31 Pelvic Exam (Internal) 11/11/2007 716.90 ARTHRITIS 11/11/2007 V72.31 Pelvic Exam ( Internal) 11/11/2007 ATKINSON DO, ARGELIA K 716.90 ARTHRITIS 11/11/2007 ATKINSON DO, ARGELIA K V72.31 Pelvic Exam (Internal) 11/11/2007 ATKINSON DO, ARGELIA K 716.90 ARTHRITIS 11/11/2007 ATKINSON DO, ARGELIA K V72.31 Pelvic Exam (Internal) 11/11/2007 716.90 ARTHRITIS 11/11/2007 V72.31 Pelvic Exam ( Internal) 11/11/2007 716.90 ARTHRITIS 11/11/2007 V72.31 Pelvic Exam ( Internal) 11/11/2007 716.90 ARTHRITIS 11/11/2007 V72.31 Pelvic Exam ( Internal) 11/11/2007 716.90 ARTHRITIS 11/11/2007 V72.31 Pelvic Exam ( Internal) 11/11/2007 716.90 ARTHRITIS 11/11/2007 V72.31 Pelvic Exam ( Internal) 11/11/2007 716.90 ARTHRITIS 11/11/2007 V72.31 Pelvic Exam ( Internal) 11/11/2007 716.90 ARTHRITIS 11/11/2007 V72.31 Pelvic Exam ( Internal) 11/11/2007 716.90 ARTHRITIS 11/11/2007 V72.31 Pelvic Exam ( Internal) 11/11/2007 ALANA GOLD APRN S 716.90 ARTHRITIS [...] MD 716.90 ARTHRITIS 11/11/2007 BABAK TRIANA MD V72.31 Pelvic Exam (Internal) 11/11/2007 BABAK TRIANA MD N 716.90 ARTHRITIS 11/11/2007 BABAK TRIANA MD V72.31 Pelvic Exam (Internal) 11/11/2007 BABAK TRIANA MD 716.90 ARTHRITIS 11/11/2007 BABAK TRIANA MD V72.31 Pelvic Exam (Internal) 11/11/2007 BABAK TRIANA MD N 716.90 ARTHRITIS 11/11/2007 BABAK TRIANA MD V72.31 Pelvic Exam (Internal) 11/11/2007 BABAK TRIANA MD N 716.90 ARTHRITIS 11/11/2007 BABAK TRIANA MD N V72.31 Pelvic Exam (Internal) 11/11/2007 ALANA GOLD APRN S 716.90 ARTHRITIS 11/11/2007 ALANA GOLD APRN S V72.31 Pelvic Exam (Internal) 11/11/2007 CHINA DO ARGLEIA K 716.90 ARTHRITIS 11/11/2007 ATKINSON DO ARGELIA K V72.31 Pelvic Exam (Internal) 11/11/2007 ATKINSON DO ARGELIA K 716.90 ARTHRITIS 11/11/2007 ATKINSON DO ARGELIA K V72.31 Pelvic Exam (Internal) 11/11/2007 ATKINSON DO ARGELIA K 716.90 ARTHRITIS 11/11/2007 ATKINSON DO ARGELIA K V72.31 Pelvic Exam (Internal) 11/11/2007 BABAK TRIANA MD N 716.90 ARTHRITIS 11/11/2007 BABAK TRIANA MD V72.31 Pelvic Exam (Internal) 11/30/2007 ATKINSON DO, ARGELIA K 724.2 lower [...] lower back pain 11/30/2007 ALANA GOLD APRN 724.2 lower back pain 11/30/2007 ATKINSON DO, [...] N 724.2 lower back pain 11/30/2007 BABAK TRINAA MD N 724.2 lower back pain 11/30/2007 BABAK TRIANA MD N 724.2 lower back pain 11/30/2007 BABAK TRIANA MD N 724.2 lower back pain 11/30/2007 ALANA GOLD APRN S 724.2 lower back pain 11/30/2007 ATKINSON DO, ARGELIA K 724.2 lower back pain 11/30/2007 ATKINSON DO, ARGELIA K 724.2 lower back pain 11/30/2007 ATKINSON DO, ARGELIA K 724.2 lower back pain 11/30/2007 KONG GREWAL, BABAK Sheppard 724.2 lower back pain 12/08/2007 ATKINSON DO, ARGELIA K 599.0 URINARY TRACT INFECTION 12/08/2007 ATKINSON DO, ARGELIA K 788.1 pain during urination (dysuria) 12/08/2007 ATKINSON DO, AGRELIA K 599.0 URINARY TRACT INFECTION 12/08/2007 ATKINSON [...] TRIANA MD 788.1 pain during urination (dysuria) 12/08/2007 BABAK TRIANA MD N 599.0 URINARY TRACT INFECTION 12/08/2007 BABAK TRIANA MD 788.1 pain during urination (dysuria) 12/08/2007 ALANA [...] during urination (dysuria) 12/08/2007 BABAK TRIANA MD 599.0 URINARY TRACT INFECTION 12/08/2007 BABAK TRIANA MD 788.1 pain during urination (dysuria) 02/01/2008 ATKINSON DO ARGELIA K 338.4 CHRONIC PAIN SYNDROME 02/01/2008 ATKINSON DO, ARGELIA K 338.4 CHRONIC PAIN SYNDROME 02/01/2008 338.4 CHRONIC PAIN SYNDROME 02/01/2008 ATKINSON DO ARGELIA K 338.4 CHRONIC PAIN SYNDROME 02/01/2008 ATKINSON DO ARGELIA K 338.4 CHRONIC PAIN SYNDROME 02/01/2008 338.4 CHRONIC PAIN SYNDROME 02/01/2008 338.4 CHRONIC PAIN SYNDROME 02/01/2008 338.4 CHRONIC PAIN SYNDROME 02/01/2008 338.4 CHRONIC PAIN SYNDROME 02/01/2008 338.4 CHRONIC PAIN SYNDROME 02/01/2008 338.4 CHRONIC PAIN SYNDROME 02/01/2008 338.4 CHRONIC PAIN SYNDROME 02/01/2008 338.4 CHRONIC PAIN SYNDROME 02/01/2008 ALANA GOLD APRN S 338.4 CHRONIC PAIN SYNDROME 02/01/2008 ATKINSON DO ARGELIA K 338.4 CHRONIC PAIN SYNDROME 02/01/2008 ATKINSON DO ARGELIA K 338.4 CHRONIC PAIN SYNDROME 02/01/2008 [...] 338.4 CHRONIC PAIN SYNDROME 02/01/2008 KONG GREWAL, ABBAK N 338.4 CHRONIC PAIN SYNDROME 02/01/2008 KONG [...] K 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 07/12/2008 ATKINSON DO ARGELIA K 477.9 ALLERGIC RHINITIS 07/12/2008 TIN ATKINSON DOA K 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 07/12/2008 ATKINSON , ARGELIA K 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 07/12/2008 477.9 ALLERGIC RHINITIS 07/12/2008 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 07/12/2008 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 07/12/2008 TIN ATKINSON DOA K 477.9 ALLERGIC RHINITIS 07/12/2008 ATKINSON DO ARGELIA K 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 07/12/2008 ATKINSON DO ARGELIA K 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 07/12/2008 TIN ATKINSON DOA K 477.9 ALLERGIC RHINITIS 07/12/2008 TIN ATKINSON DOA K 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 07/12/2008 TIN ATKINSON DOA K 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 07/12/2008 477.9 [...] ATROPHIC 07/12/2008 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 07/12/2008 ASIF FLORAL DESIGNER SALESPERSON, ALANA S 477.9 ALLERGIC RHINITIS 07/12/2008 ASIF FLORAL DESIGNER SALESPERSON, ALANA S 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 07/12/2008 ASIF FLORAL DESIGNER SALESPERSON, ALANA S 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 07/12/2008 [...] ARGELIA K 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 07/12/2008 BABAK TRIANA [...] 477.9 ALLERGIC RHINITIS 07/12/2008 BABAK TRIANA MD 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 07/12/2008 BABAK TRIANA MD N 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 07/12/2008 BABAK TRIANA MD N 477.9 ALLERGIC RHINITIS 07/12/2008 BABAK TRIANA MD 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 07/12/2008 BABAK TRIANA MD N 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 07/12/2008 BABAK TRIANA MD N 477.9 ALLERGIC RHINITIS 07/12/2008 BABAK TRIANA MD N 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 07/12/2008 BABAK TRIANA MD N 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 07/12/2008 ALANA GOLD APRN S 477.9 ALLERGIC RHINITIS 07/12/2008 MITALI GOLD APRNNDA S 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 07/12/2008 MITALI GOLD APRNNDA S 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 07/12/2008 ATKINSON DO ARGELIA K 477.9 ALLERGIC RHINITIS 07/12/2008 ATKINSON DO ARGELIA K 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 07/12/2008 ATKINSON DO, ARGELIA K 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 07/12/2008 ATKINSON , ARGELIA K 477.9 ALLERGIC RHINITIS 07/12/2008 ATKINSON DO, ARGELIA K 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 07/12/2008 ATKINSON DO ARGELIA K 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 07/12/2008 ATKINSON DO, ARGELIA K 477.9 ALLERGIC RHINITIS 07/12/2008 ATKINSON DO, ARGELIA K 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 07/12/2008 ATKINSON DO, ARGELIA K 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 07/12/2008 BABAK TRIANA MD N 477.9 ALLERGIC RHINITIS 07/12/2008 BABAK TRIANA MD N 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 07/12/2008 BABAK TRIANA MD N 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 07/27/2008 ATKINSON DO, ARGELIA K 616.10 VAGINITIS [...] ALANA GOLD APRN S 616.10 VAGINITIS 07/27/2008 TYRELL GOLD APRNA S 788.30 urinary loss of control 07/27/2008 ALANA GOLD APRN S 788.41 urinary frequency increased 07/27/2008 ALANA GOLD APRN S 788.63 feelings of urinary urgency 07/27/2008 ATKINSON DOTINA K 616.10 VAGINITIS 07/27/2008 ATKINSON DOTINA K 788.30 urinary loss of control 07/27/2008 [...] DOA K 788.41 urinary frequency increased 07/27/2008 ARGELIA ATKINSON DO K 788.63 feelings of urinary urgency 07/27/2008 ABBAK TRIANA MD N 616.10 VAGINITIS 07/27/2008 BABAK TRIANA MD 788.30 urinary loss of control 07/27/2008 BABAK TRIANA MD 788.41 urinary frequency increased 07/27/2008 ABBAK TRIANA MD 788.63 feelings of urinary urgency 07/27/2008 BABAK TRIANA MD 616.10 VAGINITIS 07/27/2008 BABAK TRIANA MD 788.30 urinary loss of control 07/27/2008 BABAK TRIANA MD 788.41 urinary frequency increased 07/27/2008 BABAK TRIANA MD 788.63 feelings of urinary urgency 07/27/2008 BABAK TRIANA MD 616.10 VAGINITIS 07/27/2008 BABAK TRIANA MD N 788.30 urinary loss of control 07/27/2008 BABAK TRIANA MD N 788.41 urinary frequency increased 07/27/2008 BABAK TRIANA MD 788.63 feelings of urinary urgency 07/27/2008 BABAK TRIANA MD N 616.10 VAGINITIS 07/27/2008 BABAK TRIANA MD N 788.30 urinary loss of control 07/27/2008 BABAK TRIANA MD N 788.41 urinary frequency increased 07/27/2008 BABAK TRIANA MD 788.63 feelings of urinary urgency 07/27/2008 BABAK TRIANA MD N 616.10 VAGINITIS 07/27/2008 BABAK TRIANA MD N 788.30 urinary loss of control 07/27/2008 BABAK TRIANA MD N 788.41 urinary frequency increased 07/27/2008 BABAK TRIANA MD 788.63 feelings of urinary urgency 07/27/2008 ALANA GOLD APRN S 616.10 VAGINITIS 07/27/2008 ALANA GOLD APRN S 788.30 urinary loss of control 07/27/2008 ALANA GOLD APRN S 788.41 urinary frequency increased 07/27/2008 ALANA GOLD APRN S 788.63 feelings of urinary urgency 07/27/2008 [...] in the knee 08/10/2008 ALANA GOLD APRN S 719.46 joint pain, localized in the knee [...] in the knee 08/10/2008 ALANA GOLD APRN S 719.46 joint pain, localized in the knee [...] DISORDERS 08/17/2008 296.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 08/17/2008 ALANA GOLD APRN 296.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 08/17/2008 ATKINSON DO, [...] EPISODIC MOOD DISORDERS 08/17/2008 BABAK TRIANA MD 296.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 08/17/2008 BABAK TRIANA MD 296.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 08/17/2008 BABAK TRIANA MD 296.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 08/17/2008 BABAK TRIANA MD 296.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 08/17/2008 BABAK TRIANA MD 296.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 08/17/2008 ALANA GOLD APRN 296.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 08/17/2008 ATKINSON DO, ARGELIA K 296.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 08/17/2008 ATKINSON DO, ARGELIA K 296.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 08/17/2008 ATKINSON DO, ARGELIA K 296.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 08/17/2008 BABAK TRIANA MD N 296.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 12/21/2008 ATKINSON DO, ARGELIA K 782.3 Edema 12/21/2008 ATKINSON DO, ARGELIA K 782.3 Edema 12/21/2008 782.3 Edema 12/21/2008 ATKINSON DO, ARGELIA K 782.3 Edema 12/21/2008 ATKINSON DO, ARGELIA K 782.3 Edema 12/21/2008 782.3 Edema 12/21/2008 782.3 Edema 12/21/2008 782.3 Edema 12/21/2008 782.3 Edema 12/21/2008 782.3 Edema 12/21/2008 782.3 Edema 12/21/2008 782.3 Edema 12/21/2008 782.3 Edema 12/21/2008 ALANA GOLD APRN S [...] lump or mass 03/28/2009 ALANA GOLD APRN 625.8 vulvar lump or mass 03/28/2009 ATKINSON [...] 625.8 vulvar lump or mass 03/28/2009 BABAK RTIANA MD 625.8 vulvar lump or mass 03/28/2009 BABAK TRIANA MD 625.8 vulvar lump or mass 03/28/2009 BABAK TRIANA MD 625.8 vulvar lump or mass 03/28/2009 BABAK TRIANA MD 625.8 vulvar lump or mass 03/28/2009 BABAK TRIANA MD 625.8 vulvar lump or mass 03/28/2009 ALANA GOLD APRN 625.8 vulvar lump or mass 03/28/2009 ATKINSON DO ARGELIA K 625.8 vulvar lump or mass 03/28/2009 ATKINSON DO, ARGELIA K 625.8 vulvar lump or mass 03/28/2009 ATKINSON DO, ARGELIA K 625.8 vulvar lump or mass 03/28/2009 BABAK TRIANA MD 625.8 vulvar lump or mass 03/30/2009 Ot V43.64 03/30/2009 Ot V57.1 03/30/2009 Ot V58.43 04/04/2009 ATKINSON DO ARGELIA K 300.00 ANXIETY UNSPEC 04/04/2009 ATKINSON DO ARGELIA K 789.00 Abdominal Pain Unspecified Site 04/04/2009 ATKINSON DO, ARGELIA K 300.00 ANXIETY UNSPEC 04/04/2009 ATKINSON DO ARGELIA K 789.00 Abdominal Pain Unspecified Site 04/04/2009 300.00 ANXIETY UNSPEC 04/04/2009 789.00 Abdominal Pain Unspecified Site 04/04/2009 ATKINSON DO ARGELIA K 300.00 ANXIETY UNSPEC 04/04/2009 ATKINSON DOTINA K 789.00 Abdominal Pain Unspecified Site 04/04/2009 ATKINSON DO ARGELIA K 300.00 ANXIETY UNSPEC 04/04/2009 ATKINSON [...] 04/04/2009 789.00 Abdominal Pain Unspecified Site 04/04/2009 ASIF POLANCOMITALIALANA S 300.00 ANXIETY UNSPEC 04/04/2009 ASIF FLORAL DESIGNER SALESPERSONMITALIALANA S 789.00 Abdominal Pain Unspecified Site 04/04/2009 [...] Pain Unspecified Site 04/04/2009 BABAK TRIANA MD 300.00 ANXIETY UNSPEC 04/04/2009 BABAK TRIANA MD 789.00 Abdominal Pain Unspecified Site 04/04/2009 BABAK TRIANA MD 300.00 ANXIETY UNSPEC 04/04/2009 BABAK TRIANA MD 789.00 Abdominal Pain Unspecified Site 04/04/2009 BABAK TRIANA MD 300.00 ANXIETY UNSPEC 04/04/2009 BABAK TRIANA MD 789.00 Abdominal Pain Unspecified Site 04/04/2009 BABAK TRIANA MD 300.00 ANXIETY UNSPEC 04/04/2009 BABAK TRIANA MD 789.00 Abdominal Pain Unspecified Site 04/04/2009 BABAK TRIANA MD N 300.00 ANXIETY UNSPEC 04/04/2009 KONG GREWAL, BABAK N 789.00 Abdominal Pain Unspecified Site 04/04/2009 ALANA GOLD APRN S 300.00 ANXIETY UNSPEC 04/04/2009 ALANA GOLD APRN S 789.00 Abdominal Pain Unspecified Site 04/04/2009 [...] Physical Senior Citizen (65-80) 04/25/2009 V58.69 taking high- risk medication 04/25/2009 V70.0 Normal Routine History And Physical Senior Citizen (65-80) 04/25/2009 ATKINSON DO, ARGELIA K V58.69 taking high-risk medication 04/25/2009 ATKINSON DO, ARGELIA K V70.0 Normal Routine History And Physical Senior Citizen (65-80) 04/25/2009 ATKINSON DO, ARGELIA K V58.69 taking high-risk medication 04/25/2009 ATKINSON DO, ARGELIA K V70.0 Normal Routine History And Physical Senior Citizen (65-80) 04/25/2009 V58.69 taking high- risk medication 04/25/2009 V70.0 Normal Routine History And Physical Senior Citizen (65-80) 04/25/2009 V58.69 taking high- risk medication 04/25/2009 V70.0 Normal Routine History And Physical Senior Citizen (65-80) 04/25/2009 V58.69 taking high- risk medication 04/25/2009 V70.0 Normal Routine History And Physical Senior Citizen (65-80) 04/25/2009 V58.69 taking high- risk medication 04/25/2009 V70.0 Normal Routine History And Physical Senior Citizen (65-80) 04/25/2009 V58.69 taking high- risk medication 04/25/2009 V70.0 Normal Routine History And Physical Senior Citizen (65-80) 04/25/2009 V58.69 taking high- risk medication 04/25/2009 V70.0 Normal Routine History And Physical Senior Citizen (65-80) 04/25/2009 V58.69 taking high- risk medication 04/25/2009 V70.0 Normal Routine History And Physical Senior Citizen (65-80) 04/25/2009 V58.69 taking high- risk medication 04/25/2009 V70.0 Normal Routine History And Physical Senior Citizen (65-80) 04/25/2009 ASIF FLORAL DESIGNER SALESPERSONMITALIALANA S V58.69 taking high-risk medication 04/25/2009 ASIF FLORAL DESIGNER SALESPERSONMITALIALANA S V70.0 Normal Routine History And Physical [...] Urination (dysuria) 05/10/2009 789.00 Abdominal Pain 05/10/2009 ALANA GOLD APRN S 564.1 IRRITABLE BOWEL SYNDROME 05/10/2009 ALANA GOLD APRN S 788.1 Pain During Urination (dysuria) 05/10/2009 ALANA GOLD APRN S 789.00 Abdominal Pain 05/10/2009 ATKINSON DO, [...] IRRITABLE BOWEL SYNDROME 05/10/2009 BABAK TRIANA MD 788.1 Pain During Urination (dysuria) 05/10/2009 BABAK TRIANA MD N 789.00 Abdominal Pain 05/10/2009 BABAK TRIANA MD 564.1 IRRITABLE BOWEL SYNDROME 05/10/2009 BABAK TRIANA MD N 788.1 Pain During Urination (dysuria) 05/10/2009 BABAK TRIANA MD N 789.00 Abdominal Pain 05/10/2009 BABAK TRIANA MD 564.1 IRRITABLE BOWEL SYNDROME 05/10/2009 KONG MD, BABAK N 788.1 Pain During Urination (dysuria) 05/10/2009 [...] TRIANA MD N 789.00 Abdominal Pain 05/10/2009 ALANA GOLD APRN S 564.1 IRRITABLE BOWEL SYNDROME 05/10/2009 TYRELL GOLD APRNA S 788.1 Pain During Urination (dysuria) 05/10/2009 ALANA GOLD APRN S 789.00 Abdominal Pain 05/10/2009 CHINA DO, ARGELIA K 564.1 IRRITABLE BOWEL SYNDROME [...] TRIANA MD N 789.00 Abdominal Pain 05/13/2009 CHINA CANO ARGELIA K 787.01 Nausea With Vomiting 05/13/2009 ATKINSON DO, ARGELIA K 787.01 Nausea With Vomiting 05/13/2009 787.01 Nausea With Vomiting 05/13/2009 ATKINSON DO, [...] TRIANA MD 787.01 Nausea With Vomiting 05/13/2009 ALANA GOLD APRN 787.01 Nausea With Vomiting 05/13/2009 ATKINSON DO, ARGELIA K 787.01 Nausea With Vomiting 05/13/2009 ATKINSON DO, ARGELIA K 787.01 Nausea With Vomiting 05/13/2009 ATKINSON DO, ARGELIA K 787.01 Nausea With Vomiting 05/13/2009 KONG GREWAL, BABAK N 787.01 Nausea With Vomiting 07/02/2009 Ot 462 07/02/2009 Ot 715.96 07/09/2009 Ot 276.1 07/09/2009 Ot 599.0 07/09/2009 Ot 706.2 07/09/2009 Ot 716.96 07/09/2009 Ot 721.90 07/09/2009 Ot 788.1 07/09/2009 Ot V58.69 07/14/2009 Ot 625.8 07/16/2009 Ot 276.1 07/16/2009 Ot 300.00 07/16/2009 Ot 719.46 07/16/2009 Ot 789.09 07/16/2009 Ot V58.69 07/18/2009 ATKINSON DO ARGELIA K 294.9 OR COG DIS NOS 07/18/2009 CHINA CANO ARGELIA K 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 07/18/2009 ATKINSON DO ARGELIA K 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 07/18/2009 ATKINSON DO ARGELIA K 294.9 OR COG DIS NOS 07/18/2009 ATKINSON DO ARGELIA K 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 07/18/2009 ATKINSON DO ARGELIA K 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 07/18/2009 294.9 OR COG DIS NOS 07/18/2009 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 07/18/2009 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 07/18/2009 ATKINSON DO, [...] 07/18/2009 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 07/18/2009 ASIF FLORAL DESIGNER SALESPERSON, ALANA S 294.9 OR COG DIS NOS 07/18/2009 ASIF FLORAL DESIGNER SALESPERSON, ALANA S 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 07/18/2009 ASIF FLORAL DESIGNER SALESPERSON, ALANA S 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 07/18/2009 [...] N 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 07/18/2009 ASIF FLORAL DESIGNER SALESPERSON ALANA S 294.9 OR COG DIS NOS 07/18/2009 ASIF FLORAL DESIGNER SALESPERSON, ALANA S 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 07/18/2009 ALANA GOLD APRN 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 07/18/2009 ATKINSON DO, [...] ARGELIA K 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 07/18/2009 KONG GREWAL, BABAK N 294.9 OR COG DIS NOS 07/18/2009 KONG GREWAL, BABAK N 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 07/18/2009 KONG GREWAL, BABAK N 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 07/20/2009 ATKINSON DO, ARGELIA K 733.92 CHONDROMALACIA 07/20/2009 ATKINSON DO, ARGELIA K 733.92 CHONDROMALACIA 07/20/2009 733.92 CHONDROMALACIA 07/20/2009 ATKINSON DO, ARGELIA K 733.92 CHONDROMALACIA 07/20/2009 ATKINSON DO, ARGELIA K 733.92 CHONDROMALACIA 07/20/2009 733.92 CHONDROMALACIA 07/20/2009 733.92 CHONDROMALACIA 07/20/2009 733.92 CHONDROMALACIA 07/20/2009 733.92 CHONDROMALACIA 07/20/2009 733.92 CHONDROMALACIA 07/20/2009 733.92 CHONDROMALACIA 07/20/2009 733.92 CHONDROMALACIA 07/20/2009 733.92 CHONDROMALACIA 07/20/2009 ALNAA GOLD APRN 733.92 CHONDROMALACIA 07/20/2009 ATKINSON DO, ARGELIA K 733.92 CHONDROMALACIA 07/20/2009 ATKINSON DO, ARGELIA K 733.92 CHONDROMALACIA 07/20/2009 ATKINSON DO ARGELIA K 733.92 CHONDROMALACIA 07/20/2009 ATKINSON DO ARGELIA K 733.92 CHONDROMALACIA 07/20/2009 ATKINSON DO ARGELIA K 733.92 CHONDROMALACIA 07/20/2009 ATKINSON DO ARGELIA K 733.92 CHONDROMALACIA 07/20/2009 ATKINSON DO, ARGELIA K 733.92 CHONDROMALACIA 07/20/2009 ATKINSON DO, ARGELIA K 733.92 CHONDROMALACIA 07/20/2009 KONG GREWAL, [...] 10/12/2009 Ot V57.1 10/25/2009 ARGELIA ATKINSON DO V72.31 Pelvic Exam (internal) 10/25/2009 ARGELIA ATKINSON DO V76.10 Visit For: Screening Exam Malignant Neoplasm Breast 10/25/2009 ARGELIA ATKINSON DO V72.31 Pelvic Exam (internal) 10/25/2009 ARGELIA ATKINSON DO V76.10 Visit For: Screening Exam Malignant Neoplasm Breast 10/25/2009 V72.31 Pelvic Exam ( internal) 10/25/2009 V76.10 Visit For: Screening Exam Malignant Neoplasm Breast 10/25/2009 ARGELIA ATKINSON DO V72.31 Pelvic Exam (internal) 10/25/2009 ARGELIA ATKINSON DO V76.10 Visit For: Screening Exam Malignant Neoplasm Breast 10/25/2009 ARGELIA ATKINSON DO V72.31 Pelvic Exam (internal) 10/25/2009 ARGELIA ATKINSON DO V76.10 Visit For: Screening Exam Malignant Neoplasm Breast 10/25/2009 V72.31 Pelvic Exam ( internal) 10/25/2009 V76.10 Visit For: Screening Exam Malignant Neoplasm Breast 10/25/2009 V72.31 Pelvic Exam ( internal) 10/25/2009 V76.10 Visit For: Screening Exam Malignant Neoplasm Breast 10/25/2009 V72.31 Pelvic Exam ( internal) 10/25/2009 V76.10 Visit For: Screening Exam Malignant Neoplasm Breast 10/25/2009 V72.31 Pelvic Exam ( internal) 10/25/2009 V76.10 Visit For: Screening Exam Malignant Neoplasm Breast 10/25/2009 V72.31 Pelvic Exam ( internal) 10/25/2009 V76.10 Visit For: Screening Exam Malignant Neoplasm Breast 10/25/2009 V72.31 Pelvic Exam ( internal) 10/25/2009 V76.10 Visit For: Screening Exam Malignant Neoplasm Breast 10/25/2009 V72.31 Pelvic Exam ( internal) 10/25/2009 V76.10 Visit For: Screening Exam Malignant Neoplasm Breast 10/25/2009 V72.31 Pelvic Exam ( internal) 10/25/2009 V76.10 Visit For: Screening Exam Malignant Neoplasm Breast 10/25/2009 ASIFALANA PINEDO APRN S V72.31 Pelvic Exam (internal) 10/25/2009 [...] For: Screening Exam Malignant Neoplasm Breast 10/25/2009 AKTINSON DO, ARGELIA K V72.31 Pelvic Exam (internal) [...] For: Screening Exam Malignant Neoplasm Breast 10/25/2009 [place] DO ARGELIA K V72.31 Pelvic Exam (internal) 10/25/2009 ATKINSON DO ARGELIA K V76.10 Visit For: Screening Exam Malignant Neoplasm Breast 10/25/2009 ATKINSON DO, ARGELIA K V72.31 Pelvic Exam (internal) 10/25/2009 [place] DO, ARGELIA K V76.10 Visit For: Screening [...] ATKINSON DO, ARGELIA K 728.87 Weakness 03/01/2010 BABAK TRIANA MD 728.87 Weakness 03/01/2010 BABAK TRIANA MD 728.87 Weakness 03/01/2010 BABAK TRIANA MD 728.87 Weakness 03/01/2010 BABAK TRIANA MD 728.87 Weakness 03/01/2010 BABAK TRIANA MD 728.87 Weakness 03/01/2010 ALANA GOLD APRN 728.87 Weakness 03/01/2010 ARGELIA ATKINSON DO 728.87 Weakness 03/01/2010 ARGELIA ATKINSON DO 728.87 Weakness 03/01/2010 [place] ARGELIA CANO 728.87 Weakness 03/01/2010 BABAK TRIANA MD 728.87 Weakness 06/13/2010 Ot 719.45 06/13/2010 Ot 719.46 06/13/2010 Ot 733.00 06/13/2010 Ot V57.1 07/06/2010 Ot 719.45 07/06/2010 Ot 719.46 07/06/2010 Ot 733.00 07/06/2010 Ot V57.1 09/13/2010 Ot 716.90 ARTHROPATHY NOS-UNSPEC 09/13/2010 Ot 719.45 JOINT PAIN- PELVIS 09/13/2010 Ot 719.46 JOINT PAIN-L /LEG 09/13/2010 Ot 733.00 OSTEOPOROSIS NOS 09/13/2010 Ot [...] And Above, Im) 11/06/2010 ALANA GOLD APRN S V04.81 Flu Dx (3 Yrs And Above, Im) 11/06/2010 ATKINSON DO, ARGELIA K V04.81 Flu Dx (3 Yrs And Above, Im) 11/06/2010 ATKINSON DO, ARGELIA K V04.81 Flu Dx (3 Yrs And Above, Im) 11/06/2010 ATKINSON DO, AGRELIA K V04.81 Flu Dx (3 Yrs And [...] And Above, Im) 11/06/2010 ALANA GOLD APRN S V04.81 Flu Dx (3 Yrs And Above, [...] 12/24/2010 388.70 Otalgia 12/24/2010 ALANA GOLD APRN 388.70 Otalgia 12/24/2010 ATKINSON DO, ARGELIA K [...] N 388.70 Otalgia 12/24/2010 ALANA GOLD APRN 388.70 Otalgia 12/24/2010 ATKINSON DO, ARGELIA K 388.70 Otalgia 12/24/2010 ATKINSON DO, ARGELIA K 388.70 Otalgia 12/24/2010 ATKINSON DO, ARGELIA K 388.70 Otalgia 12/24/2010 KONG GREWAL, BABAK Sheppard 388.70 Otalgia 02/08/2011 Ot 716.95 ARTHROPATHY NOS-PELVIS 02/08/2011 Ot 716.96 ARTHROPATHY NOS-L/LEG 02/08/2011 Ot V57.1 PHYSICAL THERAPY NEC 04/22/2011 ARGELIA ATKINSON DO 380.10 Infective Otitis Externa Unspecified 04/22/2011 ARGELIA ATKINSON DO 564.00 Unspecified Constipation 04/22/2011 ARGELIA ATIKNSON DO 380.10 Infective Otitis Externa Unspecified 04/22/2011 ARGELIA ATKINSON DO 564.00 Unspecified Constipation 04/22/2011 380.10 Infective Otitis Externa Unspecified 04/22/2011 564.00 Unspecified Constipation 04/22/2011 ARGELIA ATKINSON DO 380.10 Infective Otitis Externa Unspecified 04/22/2011 ARGELIA ATKINSON DO 564.00 Unspecified Constipation 04/22/2011 ARGELIA ATKINSON DO 380.10 Infective Otitis Externa Unspecified 04/22/2011 ARGELIA ATKINSON DO 564.00 Unspecified Constipation 04/22/2011 380.10 Infective Otitis [...] ALANA GOLD APRN 564.00 Unspecified Constipation 04/22/2011 ATKINSON DO, ARGELIA [...] TRIANA MD N 564.00 Unspecified Constipation 04/22/2011 BAABK TRIANA MD N 380.10 Infective Otitis Externa [...] DO, ARGELIA K 564.00 Unspecified Constipation 04/22/2011 KONG GREWAL, BABAK N 380.10 Infective Otitis Externa Unspecified 04/22/2011 KONG GREWAL, BABAK N 564.00 Unspecified Constipation 06/12/2011 ATKINSON DO, ARGELIA [...] ATKINSON DO, ARGELIA K 285.9 ANEMIA 06/12/2011 ATKNISON DO, ARGELIA K 285.9 ANEMIA 06/12/2011 ATKINSON DO, ARGELIA K 285.9 ANEMIA 06/12/2011 ATKINSON DO, ARGELIA K 285.9 ANEMIA 06/12/2011 ATKINSON DO, ARGELIA K 285.9 ANEMIA 06/12/2011 ATKINSON DO, ARGELIA K 285.9 ANEMIA 06/12/2011 ATKINSON DO, ARGELIA K 285.9 ANEMIA 06/12/2011 BABAK TRIANA MD N 285.9 ANEMIA 06/12/2011 KONG GREWAL, BABAK N 285.9 ANEMIA 06/12/2011 KONG GRWEAL, BABAK N 285.9 ANEMIA 06/12/2011 KONG GREWAL, BABAK N 285.9 ANEMIA 06/12/2011 KONG GREWAL, BABAK N 285.9 ANEMIA 06/12/2011 ALANA GOLD APRN 285.9 ANEMIA 06/12/2011 ATKINSON DO ARGELIA K 285.9 ANEMIA 06/12/2011 ATKINSON DO ARGELIA K 285.9 ANEMIA 06/12/2011 ATKINSON DO, [...] (3 YRS AND ABOVE, IM) 11/18/2011 ASIF FLORAL DESIGNER SALESPERSONMITALIALANA S 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 11/18/2011 ASIF FLORAL DESIGNER SALESPERSON, ALANA S 786.50 Chest Pain 11/18/2011 ASIF FLORAL DESIGNER SALESPERSONMITALIALANA S V04.81 FLU DX (3 YRS AND ABOVE, IM) 11/18/2011 [place] DO ARGELIA K 225.2 BENIGN NEOPLASM OF [...] ATKINSON DOA K 786.50 Chest Pain 11/18/2011 TIN ATKINSON DOA K V04.81 FLU DX (3 YRS AND ABOVE, IM) 11/18/2011 TIN ATKINSON DOA K 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 11/18/2011 TIN ATKINSON DOA K 786.50 Chest Pain 11/18/2011 TIN ATKINSON DOA K V04.81 FLU DX (3 YRS AND ABOVE, IM) 11/18/2011 TIN ATKINSON DOA K 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 11/18/2011 TIN ATKINSON DOA K 786.50 Chest Pain 11/18/2011 TIN ATKINSON DOA K V04.81 FLU DX (3 YRS AND ABOVE, IM) 11/18/2011 TIN ATKINSON DOA K 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 11/18/2011 TIN ATKINSON DOA K 786.50 Chest Pain 11/18/2011 ITN ATKINSON DOA K V04.81 FLU DX (3 YRS AND ABOVE, IM) 11/18/2011 TIN ATKINSON DOA K 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 11/18/2011 TIN ATKINSON DOA K 786.50 Chest Pain 11/18/2011 TIN ATKINSON DOA K V04.81 FLU DX (3 YRS AND ABOVE, IM) 11/18/2011 TIN ATKINSON DOA K 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 11/18/2011 TIN ATKINSON DOA K 786.50 Chest Pain 11/18/2011 TIN ATKINSON DOA K V04.81 FLU DX (3 YRS AND [...] DX (3 YRS AND ABOVE, IM) 11/18/2011 KONG MD, BABAK N 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 [...] DX (3 YRS AND ABOVE, IM) 11/18/2011 TYRELL GOLD APRNA S 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 11/18/2011 TYRELL GOLD APRNA S 786.50 Chest Pain 11/18/2011 ALANA GOLD APRN S V04.81 FLU DX (3 YRS AND ABOVE, IM) 11/18/2011 [place] DO ARGELIA K 225.2 BENIGN NEOPLASM OF [...] DX (3 YRS AND ABOVE, IM) 11/21/2011 ATKINSON DO, ARGELIA K 726.5 ENTHESOPATHY [...] OF HIP REGION 11/21/2011 BABAK TRIANA MD N 726.5 ENTHESOPATHY OF HIP REGION 11/21/2011 BABAK TRIANA MD 726.5 ENTHESOPATHY OF HIP REGION 11/21/2011 BABAK TRIANA MD N 726.5 ENTHESOPATHY OF HIP REGION 11/21/2011 KONG MD, BABAK N 726.5 ENTHESOPATHY OF HIP REGION 11/21/2011 BABAK TRIANA MD N 726.5 ENTHESOPATHY OF HIP REGION 11/21/2011 ALANA GOLD APRN 726.5 ENTHESOPATHY OF HIP REGION 11/21/2011 ARGELIA ATKINSON DO 726.5 ENTHESOPATHY OF HIP REGION 11/21/2011 TIN ATKINSON DOA K 726.5 ENTHESOPATHY OF HIP REGION 11/21/2011 ARGELIA ATKINSON DO K 726.5 ENTHESOPATHY OF HIP REGION 11/21/2011 BABAK TRIANA MD N 726.5 ENTHESOPATHY OF HIP REGION 01/23/2012 ARGELIA ATKINSON DO K 719.45 PAIN [...] GOLD APRN 729.5 PAIN IN LIMB 07/28/2012 ARGELIA ATKINSON DO K 729.5 PAIN IN LIMB 07/28/2012 ARGELIA ATKINSON DO K 729.5 PAIN IN LIMB 07/28/2012 ATKINSON DO, ARGELIA K 729.5 PAIN IN LIMB 07/28/2012 ATKINSON DO, ARGELIA K 729.5 PAIN IN LIMB 07/28/2012 ATKINSON DO, ARGELIA K 729.5 PAIN IN LIMB 07/28/2012 ATKINSON DO, ARGELIA K 729.5 PAIN IN LIMB 07/28/2012 ATKINSON DO, ARGELIA K 729.5 PAIN IN LIMB 07/28/2012 ATKINSON DO, ARGELIA K 729.5 PAIN IN LIMB 07/28/2012 KONG GREWAL, BABAK N 729.5 PAIN IN LIMB 07/28/2012 KONG GREWAL, BABAK N 729.5 PAIN IN LIMB 07/28/2012 BABAK TRIANA MD N 729.5 PAIN IN LIMB 07/28/2012 KONG GREWAL, BABAK N 729.5 PAIN IN LIMB 07/28/2012 KONG GREWAL, BABAK N 729.5 PAIN IN LIMB 07/28/2012 ALANA GOLD APRN S 729.5 PAIN IN LIMB 07/28/2012 ATKINSON DO, ARGELIA K 729.5 PAIN IN LIMB 07/28/2012 ATKINSON DO, ARGELIA K 729.5 PAIN IN LIMB 07/28/2012 ATKINSON DO, ARGELIA K 729.5 PAIN IN LIMB 07/28/2012 KONG GREWAL, BABAK N 729.5 PAIN IN LIMB 09/16/2012 786.52 PAINFUL RESPIRATION 09/16/2012 786.52 PAINFUL RESPIRATION 09/16/2012 786.52 PAINFUL RESPIRATION 09/16/2012 ALANA GOLD APRN S 786.52 PAINFUL RESPIRATION 09/16/2012 ATKINSON DO, ARGELIA [...] BABAK TRIANA MD 786.52 PAINFUL RESPIRATION 09/16/2012 BABAK TRIANA MD 786.52 PAINFUL RESPIRATION 09/16/2012 BABAK TRIANA MD N 786.52 PAINFUL RESPIRATION 09/16/2012 BABAK TRIANA MD N 786.52 PAINFUL RESPIRATION 09/16/2012 ALANA GOLD APRN S 786.52 PAINFUL RESPIRATION 09/16/2012 ATKINSON DO, ARGELIA [...] APRN S 078.10 VIRAL WARTS UNSPECIFIED 10/21/2012 ATKINSON DO, [...] 078.10 VIRAL WARTS UNSPECIFIED 10/21/2012 ATKINSON DO, AREGLIA K 078.10 VIRAL WARTS UNSPECIFIED 10/21/2012 BABAK TRIANA MD N 078.10 VIRAL WARTS UNSPECIFIED 10/21/2012 BABAK TRIANA MD 078.10 VIRAL WARTS UNSPECIFIED 10/21/2012 BABAK TRIANA MD 078.10 VIRAL WARTS UNSPECIFIED 10/21/2012 KONG MD, BABAK N 078.10 VIRAL WARTS UNSPECIFIED 10/21/2012 KONG GREWAL, BABAK N 078.10 VIRAL WARTS UNSPECIFIED 10/21/2012 ALANA GOLD APRN 078.10 VIRAL WARTS UNSPECIFIED 10/21/2012 ARGELIA ATKINSON DO K 078.10 VIRAL WARTS UNSPECIFIED 10/21/2012 ARGELIA ATKINSON DO K 078.10 VIRAL WARTS UNSPECIFIED 10/21/2012 ARGELIA ATKINSON DO K 078.10 VIRAL WARTS UNSPECIFIED 10/21/2012 KONG GREWAL, BABAK N 078.10 VIRAL WARTS UNSPECIFIED 11/01/2012 ANATOLIY GREWAL, JOSE A Ot 719.45 JOINT PAIN-PELVIS 11/29/2012 ARNULFO GREWAL, HALLEY T Ot 338.29 OTHER CHRONIC PAIN 11/29/2012 ARNULFO GREWAL, HALLEY T Ot 719.45 JOINT PAIN-PELVIS 12/13/2012 ARNULFO GREWAL, HALLEY T Ot 338.29 OTHER CHRONIC PAIN 12/13/2012 ARNULFO GREWAL, HALLEY T Ot 719.45 JOINT PAIN-PELVIS 12/27/2012 BRIGID COLES DO K Ot 304.90 DRUG DEPEND NOS-UNSPEC 12/27/2012 SANKET , BRIGID K Ot 338.29 OTHER CHRONIC PAIN 12/27/2012 SANKET CANO, BRIGID K Ot 780.60 FEVER, UNSPECIFIED 12/27/2012 SANKET CANO, BRIGID K Ot 788.41 URINARY FREQUENCY 05/14/2013 SANKET BRIGID K Ot 304.00 OPIOID DEPENDENCE-UNSPEC 05/14/2013 SANKET BRIGID K Ot 338.29 OTHER CHRONIC PAIN 05/14/2013 SANKET , BRIGID K Ot 719.45 JOINT PAIN-PELVIS 05/14/2013 SANKET , BRIGID K Ot 719.46 JOINT PAIN-L/LEG 05/14/2013 SANKET DO BRIGID K Ot 729.5 PAIN IN LIMB 07/13/2013 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 Ot 338.29 OTHER CHRONIC PAIN 07/13/2013 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 Ot 599.0 URIN TRACT INFECTION NOS 07/13/2013 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 Ot 729.5 PAIN IN LIMB 07/26/2013 ATKINSON DO, ARGELIA K 578.1 BLOOD IN STOOL 07/26/2013 ATKINSON DO, ARGELIA K 578.1 BLOOD IN STOOL 07/26/2013 ATKINSON DO, ARGELIA K 780.93 MEMORY LOSS 07/26/2013 BABAK TRIANA MD N 578.1 BLOOD IN STOOL 07/26/2013 BABAK TRIANA MD 780.93 MEMORY LOSS 07/26/2013 BABAK TRIANA MD N 578.1 BLOOD IN STOOL 07/26/2013 BABAK TRIANA MD 780.93 MEMORY LOSS 07/26/2013 BABAK TRIANA MD 578.1 BLOOD IN STOOL 07/26/2013 BABAK TRIANA MD 780.93 MEMORY LOSS 07/26/2013 BABAK TRIANA MD 578.1 BLOOD IN STOOL 07/26/2013 BABAK TRIANA MD 780.93 MEMORY LOSS 07/26/2013 BABAK TRIANA MD N 578.1 BLOOD IN STOOL 07/26/2013 BABAK TRIANA MD 780.93 MEMORY LOSS 07/26/2013 ALANA GOLD APRN [...] BLOOD IN STOOL 07/26/2013 BABAK TRIANA MD 780.93 MEMORY LOSS 08/01/2013 DEANA PERDOMO Ot [...] V58.69 OTH MED,LT,CURRENT USE 08/29/2013 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 Ot 300.00 ANXIETY STATE NOS 08/29/2013 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 Ot 304.90 DRUG DEPEND NOS-UNSPEC 08/29/2013 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 Ot 311 DEPRESSIVE DISORDER NEC 08/29/2013 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 Ot 338.29 OTHER CHRONIC PAIN 08/29/2013 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 Ot 562.10 DIVERTICULOSIS COLON (W/O MENT OF HEMORR 08/29/2013 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 Ot 599.0 URIN TRACT INFECTION NOS 08/29/2013 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 Ot 716.90 ARTHROPATHY NOS-UNSPEC 08/29/2013 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 Ot 789.00 ABDOMINAL PAIN, UNSPECIFIED SITE 09/05/2013 [...] V58.69 OTH MED,LT,CURRENT USE 09/17/2013 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 Ot 300.00 ANXIETY STATE NOS 09/17/2013 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 Ot 304.90 DRUG DEPEND NOS-UNSPEC 09/17/2013 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 Ot 311 DEPRESSIVE DISORDER NEC 09/17/2013 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 Ot 338.29 OTHER CHRONIC PAIN 09/17/2013 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 Ot 716.90 ARTHROPATHY NOS-UNSPEC 09/17/2013 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 Ot 719.41 JOINT PAIN-SHLDER 09/17/2013 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 Ot 719.45 JOINT PAIN-PELVIS 09/17/2013 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 Ot 723.1 CERVICALGIA 09/17/2013 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 Ot 729.5 PAIN IN LIMB 09/17/2013 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 Ot 789.00 ABDOMINAL PAIN, UNSPECIFIED SITE 09/17/2013 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 Ot V58.69 OTH MED,LT,CURRENT USE 10/10/2013 DEANA PERDOMO Ot 300.00 ANXIETY STATE NOS 10/10/2013 DEANA PERDOMO Ot 380.10 INFEC OTITIS EXTERNA NOS 10/10/2013 DEANA PERDOMO Ot 388.70 OTALGIA NOS 10/20/2013 BABAK TRIANA MD 388.70 OTALGIA UNSPECIFIED 10/20/2013 BABAK TRIANA MD 388.70 OTALGIA UNSPECIFIED 10/20/2013 BABAK TRIANA MD 388.70 OTALGIA UNSPECIFIED 10/20/2013 BABAK TRIANA MD 388.70 OTALGIA UNSPECIFIED 10/20/2013 BABAK TRIANA MD N 388.70 OTALGIA UNSPECIFIED 10/20/2013 ALANA GOLD APRN S 388.70 OTALGIA UNSPECIFIED 10/20/2013 ARGELIA ATKINSON DO K 388.70 OTALGIA UNSPECIFIED 10/20/2013 ARGELIA ATKINSON DO K 388.70 OTALGIA UNSPECIFIED 10/20/2013 ARGELIA ATKINSON DO K 388.70 OTALGIA UNSPECIFIED 10/20/2013 BABAK TRIANA MD N 388.70 OTALGIA UNSPECIFIED 12/03/2013 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 Ot 304.90 DRUG DEPEND NOS-UNSPEC 12/03/2013 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 Ot 782.0 SKIN SENSATION DISTURB 12/17/2013 BABAK TRIANA MD N V04.81 FLU SHOT 12/17/2013 BABAK TRIANA MD N V04.81 FLU SHOT 12/17/2013 BABAK TRIANA MD N V04.81 FLU SHOT 12/17/2013 BABAK TRIANA MD V04.81 FLU SHOT 12/17/2013 ALANA GOLD APRN V04.81 FLU SHOT 12/17/2013 ATKINSON ARGELIA CANO K V04.81 FLU SHOT 12/17/2013 ATKINSON DO ARGELIA K V04.81 FLU SHOT 12/17/2013 ATKINSON , ARGELIA K V04.81 FLU SHOT 12/17/2013 BABAK TRIANA MD V04.81 FLU SHOT 03/12/2014 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 Ot 715.90 OSTEOARTHROS NOS-UNSPEC 03/12/2014 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 Ot 729.5 PAIN IN LIMB 03/20/2014 DEANA PERDOMO Ot 304.90 DRUG DEPEND NOS-UNSPEC 03/20/2014 DEANA PERDOMO Ot 729.5 PAIN IN LIMB 03/25/2014 [place] CANO ARGELIA K 682.9 CELLULITIS AND ABSCESS OF UNSPECIFIED SITES 03/25/2014 [place] CANO ARGELIA K 682.9 CELLULITIS AND ABSCESS OF UNSPECIFIED SITES 03/25/2014 [place] CANO ARGELIA K 682.9 CELLULITIS AND ABSCESS OF UNSPECIFIED SITES 03/25/2014 BABAK TRIANA MD 682.9 CELLULITIS AND ABSCESS OF UNSPECIFIED SITES 03/29/2014 TIN ATKINSON DOA K 461.9 SINUSITIS ACUTE 03/29/2014 [place] CANO ARGELIA K 466.0 BRONCHITIS, ACUTE 03/29/2014 TIN ATKINSON DOA K 709.9 UNSPECIFIED DISORDER OF SKIN AND SUBCUTANEOUS TISSUE 03/29/2014 TIN ATKINSON DOA K 461.9 SINUSITIS ACUTE 03/29/2014 [place] CANO ARGELIA K 466.0 BRONCHITIS, ACUTE 03/29/2014 TIN ATKINSON DOA K 709.9 UNSPECIFIED DISORDER OF SKIN AND SUBCUTANEOUS TISSUE 03/29/2014 TIN ATKINSON DOA K 461.9 SINUSITIS ACUTE 03/29/2014 [place] CANO ARGELIA K 466.0 BRONCHITIS, ACUTE 03/29/2014 ATKINSON DO ARGELIA K 709.9 UNSPECIFIED DISORDER OF SKIN AND SUBCUTANEOUS TISSUE 03/29/2014 BABAK TRIANA MD 461.9 SINUSITIS ACUTE 03/29/2014 BABAK TRIANA MD 466.0 BRONCHITIS, ACUTE 03/29/2014 BABAK TRIANA MD 709.9 UNSPECIFIED DISORDER OF SKIN AND SUBCUTANEOUS TISSUE 04/08/2014 ARGELIA ATKINSON DO Ot 599.0 04/08/2014 ARGELIA ATKINSON DO Ot 599.0 04/11/2014 ARGELIA ATKINSON DO Ot 599.0 04/12/2014 TIN ATKINSON DOA K Ot 041.7 PSEUDOMONAS INFECT NOS 04/12/2014 TIN ATKINSON DOA K Ot 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 04/12/2014 TIN ATKINSON DOA K Ot 298.9 PSYCHOSIS NOS 04/12/2014 TIN ATKINSON DOA K Ot 300.00 ANXIETY STATE NOS 04/12/2014 TIN ATKINSON DOA K Ot 304.90 DRUG DEPEND NOS-UNSPEC 04/12/2014 [place] CANO, ARGELIA K Ot 307.9 SPECIAL SYMPTOM NEC/NOS 04/12/2014 [place] CANO ARGELIA K Ot 338.29 OTHER CHRONIC PAIN 04/12/2014 TIN ATKINSON DOA K Ot 599.0 URIN TRACT INFECTION NOS 04/12/2014 TIN ATKINSON DOA K Ot 715.90 OSTEOARTHROS NOS-UNSPEC 04/12/2014 TIN ATKINSON DOA K Ot 733.90 BONE CARTILAGE DIS NOS 06/11/2014 CESAR KNIGHT MD Ot 490 BRONCHITIS NOS 06/11/2014 CESAR KNIGHT MD Ot 786.2 COUGH 06/18/2014 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 Ot 300.00 ANXIETY STATE NOS 06/20/2014 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 Ot 300.00 ANXIETY STATE NOS 07/10/2014 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 Ot 729.81 SWELLING OF LIMB 07/10/2014 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 Ot 782.3 EDEMA 07/10/2014 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 Ot V62.89 PSYCHOLOGICAL STRESS NEC 08/09/2014 Ot [...] Ot M25.551 PAIN IN RIGHT HIP 03/22/2015 BABAK TRIANA MD Ot M25.552 PAIN IN LEFT HIP 05/22/2015 [...] PAIN IN RIGHT HIP 06/16/2015 FEDERICA REYES APRN Ot Z96.641 PRESENCE OF RIGHT ARTIFICIAL HIP JOINT 07/07/2015 FEDERICA REYES APRN Ot R10.84 GENERALIZED ABDOMINAL PAIN 07/10/2015 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 Ot R10.84 GENERALIZED ABDOMINAL PAIN 07/26/2015 Ot 300.00 08/01/2015 FEDERICA REYES APRN Ot R10.84 GENERALIZED ABDOMINAL PAIN 10/26/2015 Ot 300.00 12/27/2015 DEANA PERDOMO Ot R60.0 LOCALIZED EDEMA 12/27/2015 DEANA PERDOMO Ot Z79.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 REPAIR 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 THERAPY 12/27/2015 DEANA PERDOMO Ot Z91.14 PATIENT'S OTHER NONCOMPLIANCE WITH MEDIC 12/28/2015 DEE DEE PA, DEANA L Ot R60.0 LOCALIZED EDEMA 12/28/2015 DEE DEE MCLEOD, DEANA L Ot Z79.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 REPAIR 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 THERAPY 12/28/2015 MELISSA PERDOMOEN L Ot Z91.14 PATIENT'S OTHER NONCOMPLIANCE WITH MEDIC 12/28/2015 DEE DEE MCLEOD, DEANA L Ot R60.0 LOCALIZED EDEMA 12/28/2015 DEE DEE MCLEOD, DEANA L Ot Z79.899 OTHER USP (CURRENT) DRUG THERAPY 12/28/2015 MELISSA PERDOMOEN L Ot Z91.14 PATIENT'S OTHER NONCOMPLIANCE WITH MEDIC 12/29/2015 DEE DEE MCLEOD, DEANA L Ot R60.0 LOCALIZED EDEMA 12/29/2015 DEE DEE MCLEOD, DEANA L Ot Z79.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 REPAIR 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 THERAPY 12/29/2015 MELISSA PERDOMOEN L Ot Z91.14 PATIENT'S OTHER NONCOMPLIANCE WITH MEDIC 01/02/2016 DEE DEE MCLEOD, DEANA L Ot R60.0 LOCALIZED EDEMA 01/02/2016 ANUEL PERDOMOTCHEN L Ot Z79.899 OTHER USP (CURRENT) DRUG THERAPY 01/02/2016 MELISSA PERDOMOEN L Ot Z91.14 PATIENT'S OTHER NONCOMPLIANCE WITH MEDIC 02/25/2016 SANKET DO, BRIGID K Ot N39.0 URINARY TRACT INFECTION, SITE NOT SPECIF 02/26/2016 JIM CANO, BOBO Lozano Ot N39.0 URINARY TRACT INFECTION, SITE NOT SPECIF 02/26/2016 JIM DO, BOBO Marta Ot R10.30 LOWER ABDOMINAL PAIN, UNSPECIFIED 02/26/2016 BOBO FERNANDEZ DO Ot Z79.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 REPAIR 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 THERAPY 02/26/2016 JIM DO BOBO D Ot Z91.14 PATIENT'S OTHER NONCOMPLIANCE WITH MEDIC 02/28/2016 JIM DO, BOBO D Ot N39.0 URINARY TRACT INFECTION, SITE NOT SPECIF 02/28/2016 JIM CANO, BOBO Lozano Ot R10.30 LOWER ABDOMINAL PAIN, UNSPECIFIED 02/28/2016 BOBO FERNANDEZ DO Ot Z79.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 REPAIR 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 THERAPY 02/28/2016 JIM DO, BOBO D Ot Z91.14 PATIENT'S OTHER NONCOMPLIANCE WITH MEDIC 02/28/2016 JIM CANO, BOBO Lozano Ot N39.0 URINARY TRACT INFECTION, SITE NOT SPECIF 02/28/2016 JIMBOBO MALDONADO DO Ot R10.30 LOWER ABDOMINAL PAIN, UNSPECIFIED 02/28/2016 BOBO FERNANDEZ DO Ot Z60.9 PROBLEM RELATED TO SOCIAL ENVIRONMENT, U 02/28/2016 BOBO FERNANDEZ DO Ot Z91.14 PATIENT'S OTHER NONCOMPLIANCE WITH MEDIC 03/03/2016 BOBO FERNANDEZ DO Ot N39.0 URINARY TRACT INFECTION, SITE NOT SPECIF 03/03/2016 BOBO FERNANDEZ DO Ot R10.30 LOWER ABDOMINAL PAIN, UNSPECIFIED 03/03/2016 BOBO FERNANDEZ DO Ot Z79.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 REPAIR 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 THERAPY 03/03/2016 BOBO FERNANDEZ DO Ot Z91.14 PATIENT'S OTHER NONCOMPLIANCE WITH MEDIC 03/06/2016 FEDERICA REYES APRN Ot N39.0 URINARY TRACT INFECTION, SITE NOT SPECIF 03/06/2016 FEDERICA REYES APRN Ot R10.30 LOWER ABDOMINAL PAIN, UNSPECIFIED 03/06/2016 FEDERICA REYES APRN Ot Z91.14 PATIENT'S OTHER NONCOMPLIANCE WITH MEDIC 03/08/2016 FEDERICA REYES APRN Ot N39.0 URINARY TRACT INFECTION, SITE NOT SPECIF 03/08/2016 FEDERICA REYES APRN Ot R10.30 LOWER ABDOMINAL PAIN, UNSPECIFIED 03/08/2016 FEDERICA REYES APRN Ot Z91.14 PATIENT'S OTHER NONCOMPLIANCE WITH MEDIC 03/11/2016 LAURA PATEL 276.1 HYPOSMOLALITY AND/OR HYPONATREMIA 03/11/2016 LAURA PATEL 285.9 ANEMIA, UNSPECIFIED 03/11/2016 LAURA PATEL A 599.0 URINARY TRACT INFECTION, SITE NOT SPECIFIED 03/11/2016 LAURA PATEL D64.9 ANEMIA, UNSPECIFIED 03/11/2016 LAURA PATEL E87.1 HYPO-OSMOLALITY AND HYPONATREMIA 03/11/2016 LAURA PATEL A N39.0 URINARY TRACT INFECTION, SITE NOT SPECIFIED 03/14/2016 Chriss Oconnell 300.00 ANXIETY STATE, UNSPECIFIED 03/14/2016 Chriss Oconnell F41.9 ANXIETY DISORDER, UNSPECIFIED 03/27/2016 FEDERICA REYES APRN Ot N39.0 URINARY TRACT INFECTION, SITE NOT SPECIF 03/27/2016 FEDERICA REYES APRN Ot R10.30 LOWER ABDOMINAL PAIN, UNSPECIFIED 03/27/2016 FEDERICA REYES APRN Ot Z91.14 PATIENT'S OTHER NONCOMPLIANCE WITH MEDIC 04/02/2016 FEDERICA REYES APRN Ot N39.0 URINARY TRACT INFECTION, SITE NOT SPECIF 04/02/2016 FEDERICA REYES APRN Ot R10.30 LOWER ABDOMINAL PAIN, UNSPECIFIED 04/02/2016 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 Ot Z91.14 PATIENT'S OTHER NONCOMPLIANCE WITH MEDIC 04/06/2016 JIM DO, BOBO Lozano Ot N39.0 URINARY TRACT INFECTION, SITE NOT SPECIF 04/06/2016 JIM DOBOBO Ot R10.30 LOWER ABDOMINAL PAIN, UNSPECIFIED 04/06/2016 BOBO FERNANDEZ DO Ot 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.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 REPAIR 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 04/06/2016 JIM DOBOBO Ot Z91.14 PATIENT'S OTHER NONCOMPLIANCE WITH MEDIC 04/24/2016 IJM DO, BOBO Lozano Ot N39.0 URINARY TRACT INFECTION, SITE NOT SPECIF 04/24/2016 JIM DO, BOBO Lozano Ot R10.30 LOWER ABDOMINAL PAIN, UNSPECIFIED 04/24/2016 JIM DOBOBO Ot Z60.9 PROBLEM RELATED TO SOCIAL ENVIRONMENT, U 04/24/2016 JIM DOBOBO Ot Z91.14 PATIENT'S OTHER NONCOMPLIANCE WITH MEDIC 06/24/2016 JIM DOBOBO Ot N39.0 URINARY TRACT INFECTION, SITE NOT SPECIF 06/24/2016 JIM DOBOBO Ot R10.30 LOWER ABDOMINAL PAIN, UNSPECIFIED 06/24/2016 JIM DOBOBO Ot Z60.9 PROBLEM RELATED TO SOCIAL ENVIRONMENT, U 06/24/2016 JIM DOBOBO Ot Z91.14 PATIENT'S OTHER NONCOMPLIANCE WITH MEDIC 07/25/2016 Ot 300.00 08/04/2016 DEANA PERDOMO Ot H57.8 OTHER SPECIFIED DISORDERS OF EYE AND ADN 08/04/2016 DEANA PERDOMO Ot 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 08/20/2016 EGUENE GREWAL, CESAR Lozano Ot F03.90 UNSPECIFIED DEMENTIA WITHOUT BEHAVIORAL 08/20/2016 CESAR KNIGHT MD Ot F32.9 MAJOR DEPRESSIVE DISORDER, SINGLE EPISOD 08/20/2016 CESAR KNIGHT MD, Ot F41.9 ANXIETY DISORDER, UNSPECIFIED 08/20/2016 CESAR KNIGHT MD Ot R68.2 DRY MOUTH, UNSPECIFIED 08/22/2016 CESAR KNIGHT MD Ot F03.90 UNSPECIFIED DEMENTIA WITHOUT BEHAVIORAL 08/22/2016 CESAR KNIGHT MD Ot F32.9 MAJOR DEPRESSIVE DISORDER, SINGLE EPISOD 08/22/2016 CESAR KNIGHT MD, Ot F41.9 ANXIETY DISORDER, UNSPECIFIED 08/22/2016 CESAR KNIGHT MD, Ot R68.2 DRY MOUTH, UNSPECIFIED 08/24/2016 Ot 300.00 09/24/2016 BOBO FERNANDEZ DO, Ot N39.0 URINARY TRACT INFECTION, SITE NOT SPECIF 09/24/2016 BOBO FERNANDEZ DO Ot R10.30 LOWER ABDOMINAL PAIN, UNSPECIFIED 09/24/2016 BOBO FERNANDEZ DO Ot Z60.9 PROBLEM RELATED TO SOCIAL ENVIRONMENT, U 09/24/2016 BOBO FERNANDEZ DO Ot Z91.14 PATIENT'S OTHER NONCOMPLIANCE WITH MEDIC 10/25/2016 BOBO FERNANDZE DO, Ot N39.0 URINARY TRACT INFECTION, SITE NOT SPECIF 10/25/2016 BOBO FERNANDEZ DO, Ot R10.30 LOWER ABDOMINAL PAIN, UNSPECIFIED 10/25/2016 BOBO FERNANDEZ DO Ot Z60.9 PROBLEM RELATED TO SOCIAL ENVIRONMENT, U 10/25/2016 BOBO FERNANDEZ DO, Ot Z91.14 PATIENT'S OTHER NONCOMPLIANCE WITH MEDIC Procedures Code Description Performed By Performed On JOINT INJECTION- INTERMEDIATE JOINT 02/07/2012 JOINT INJECTION- LARGE JOINT (SPECIFY MEDCIN DESCRIPTION) 03/26/2012 06132 UA W/ CULTURE IF INDICATED 04/21/2012 26965 UA W/ CULTURE IF INDICATED 04/21/2012 81423 TRIM NAIL(S) 08/19/2012 18690 WART DESTRUCT 1-14 (CRYO) 11/03/2012 34198 UA W/ CULTURE IF INDICATED 11/30/2012 22769 CULTURE URINE 12/02/2012 G0008 FLU ADMINISTRATION ( MEDICARE ONLY) 12/28/2012 93669 ROUTINE VENIPUNCTURE 06/22/2013 09279 ECHO 2D 06/23/2013 7893516 GFR CALC (RESULT ONLY) 06/23/2013 89158 CMP 06/23/2013 83769 CBC 06/23/2013 54831 TSH 06/23/2013 01968 BNP 06/24/2013 95456 CULTURE URINE 07/21/2013 86701 HEMOGLOBIN (IN-HOUSE) 07/26/2013 71605 MRI BRAIN W/CONTRAST 12/17/2013 NEUROLOGI HALLEY GOMEZ 12/17/2013 48326 UA W/ CULTURE IF INDICATED 01/14/2014 91033 CULTURE URINE 01/14/2014 93440 ROUTINE VENIPUNCTURE 02/15/2014 80151 CBC 02/15/2014 87840 CULTURE URINE 02/15/2014 Allergy, Moses Franklin 03/15/2014 04093 OXIMETRY 03/29/2014 50258 UA W/ CULTURE IF INDICATED 06/14/2014 Results Test Result Range Complete blood count (CBC) with automated white blood cell (WBC) differential - 12/27/15 19:16 Blood leukocytes automated count (number/volume) 7.2 10*3/uL 4.3-11.0 Blood erythrocytes automated count (number/volume) 3.90 10*6/uL 4.35-5.85 Venous blood hemoglobin measurement (mass/volume) 12.0 g/dL 11.5-16.0 Blood hematocrit (volume fraction) 37 % 35-52 Automated erythrocyte mean corpuscular volume 94 [foz_us] 80-99 Automated erythrocyte mean corpuscular hemoglobin (mass per erythrocyte) 31 pg 25-34 Automated erythrocyte mean corpuscular hemoglobin concentration measurement ( mass/volume) 33 g/dL 32-36 Automated erythrocyte distribution width ratio 12.9 % 10.0-14.5 Automated blood platelet count (count/volume) 239 10*3/uL 130-400 Automated blood platelet mean volume measurement 9.7 [foz_us] 7.4-10.4 Automated blood neutrophils/100 leukocytes 65 % 42-75 Automated blood lymphocytes/100 leukocytes 22 % 12-44 Blood monocytes/100 leukocytes 10 % 0-12 Automated blood eosinophils/100 leukocytes 4 % 0-10 Automated blood basophils/100 leukocytes 0 % 0-10 Blood neutrophils automated count (number/volume) 4.7 10*3 1.8-7.8 Blood lymphocytes automated count (number/volume) 1.6 10*3 1.0-4.0 Blood monocytes automated count (number/volume) 0.7 10*3 0.0-1.0 Automated eosinophil count 0.3 10*3/uL 0.0-0.3 Automated blood basophil count (count/volume) 0.0 10*3/uL 0.0-0.1 Comprehensive metabolic panel - 12/27/15 19:16 Serum or plasma sodium measurement (moles/volume) 140 mmol/L 135-145 Serum or plasma potassium measurement (moles/volume) 3.9 mmol/L 3.6-5.0 Serum or plasma chloride measurement (moles/volume) 104 mmol/L 98-107 Carbon dioxide 32 mmol/L 21-32 Serum or plasma anion gap determination (moles/volume) 4 mmol/L 5-14 Serum or plasma urea nitrogen measurement (mass/volume) 11 mg/dL 7-18 Serum or plasma creatinine measurement (mass/volume) 0.66 mg/dL 0.60-1.30 Serum or plasma urea nitrogen/creatinine mass ratio 17 NRG Serum or plasma creatinine measurement with calculation of estimated glomerular filtration rate > NRG Serum or plasma glucose measurement (mass/volume) 91 mg/dL 70-105 Serum or plasma calcium measurement (mass/volume) 8.3 mg/dL 8.5-10.1 Serum or plasma total bilirubin measurement (mass/volume) 0.2 mg/dL 0.1-1.0 Serum or plasma alkaline phosphatase measurement (enzymatic activity/volume) 52 U/L 40-136 Serum or plasma aspartate aminotransferase measurement (enzymatic activity/ volume) 18 U/L 5-34 Serum or plasma alanine aminotransferase measurement (enzymatic activity/volume ) 15 U/L 0-55 Serum or plasma protein measurement (mass/volume) 5.9 g/dL 6.4-8.2 Serum or plasma albumin measurement (mass/volume) 3.5 g/dL 3.2-4.5 Serum or plasma lithium measurement (moles/volume) - 12/27/15 19:16 BNP level 57.9 pg/mL <100.0 Complete urinalysis with reflex to culture - 02/25/16 15:24 Urine color determination YELLOW NRG Urine clarity determination SLIGHTLY CLOUDY NRG Urine pH measurement by test strip 7 5-9 Specific gravity of urine by test strip 1.010 1.016- 1.022 Urine protein assay by test strip, semi-quantitative 1+ NEGATIVE Urine glucose detection by automated test strip NEGATIVE NEGATIVE Erythrocytes detection in urine sediment by light microscopy 2+ NEGATIVE Urine ketones detection by automated test strip NEGATIVE NEGATIVE Urine nitrite detection by test strip NEGATIVE NEGATIVE Urine total bilirubin detection by test strip NEGATIVE NEGATIVE Urine urobilinogen measurement by automated test strip (mass/volume) NORMAL NORMAL Urine leukocyte esterase detection by dipstick 3+ NEGATIVE Automated urine sediment erythrocyte count by microscopy (number/high power field) NONE NRG Automated urine sediment leukocyte count by microscopy (number/high power field ) [HPF] NRG Bacteria detection in urine sediment by light microscopy TRACE NRG Squamous epithelial cells detection in urine sediment by light microscopy RARE NRG Crystals detection in urine sediment by light microscopy NONE NRG Casts detection in urine sediment by light microscopy NONE NRG Mucus detection in urine sediment by light microscopy NEGATIVE NRG Complete urinalysis with reflex to culture YES NRG Bacterial urine culture - 02/25/16 15:24 Bacterial urine culture NG NRG Complete blood count (CBC) with automated white blood cell (WBC) differential - 02/26/16 02:16 Blood leukocytes automated count (number/volume) 11.6 10*3/uL 4.3-11.0 Blood erythrocytes automated count (number/volume) 4.36 10*6/uL 4.35-5.85 Venous blood hemoglobin measurement (mass/volume) 13.5 g/dL 11.5-16.0 Blood hematocrit (volume fraction) 41 % 35-52 Automated erythrocyte mean corpuscular volume 93 [foz_us] 80-99 Automated erythrocyte mean corpuscular hemoglobin (mass per erythrocyte) 31 pg 25-34 Automated erythrocyte mean corpuscular hemoglobin concentration measurement ( mass/volume) 33 g/dL 32-36 Automated erythrocyte distribution width ratio 13.2 % 10.0-14.5 Automated blood platelet count (count/volume) 229 10*3/uL 130-400 Automated blood platelet mean volume measurement 9.6 [foz_us] 7.4-10.4 Automated blood neutrophils/100 leukocytes 79 % 42-75 Automated blood lymphocytes/100 leukocytes 12 % 12-44 Blood monocytes/100 leukocytes 9 % 0-12 Automated blood eosinophils/100 leukocytes 0 % 0-10 Automated blood basophils/100 leukocytes 0 % 0-10 Blood neutrophils automated count (number/volume) 9.1 10*3 1.8-7.8 Blood lymphocytes automated count (number/volume) 1.4 10*3 1.0-4.0 Blood monocytes automated count (number/volume) 1.0 10*3 0.0-1.0 Automated eosinophil count 0.0 10*3/uL 0.0-0.3 Automated blood basophil count (count/volume) 0.0 10*3/uL 0.0-0.1 Comprehensive metabolic panel - 02/26/16 02:16 Serum or plasma sodium measurement (moles/volume) 131 mmol/L 135-145 Serum or plasma potassium measurement (moles/volume) 3.7 mmol/L 3.6-5.0 Serum or plasma chloride measurement (moles/volume) 98 mmol/L 98-107 Carbon dioxide 21 mmol/L 21-32 Serum or plasma anion gap determination (moles/volume) 12 mmol/L 5-14 Serum or plasma urea nitrogen measurement (mass/volume) 12 mg/dL 7-18 Serum or plasma creatinine measurement (mass/volume) 0.66 mg/dL 0.60-1.30 Serum or plasma urea nitrogen/creatinine mass ratio 18 NRG Serum or plasma creatinine measurement with calculation of estimated glomerular filtration rate > NRG Serum or plasma glucose measurement (mass/volume) 119 mg/dL 70-105 Serum or plasma calcium measurement (mass/volume) 9.1 mg/dL 8.5-10.1 Serum or plasma total bilirubin measurement (mass/volume) 0.5 mg/dL 0.1-1.0 Serum or plasma alkaline phosphatase measurement (enzymatic activity/volume) 64 U/L 40-136 Serum or plasma aspartate aminotransferase measurement (enzymatic activity/ volume) 18 U/L 5-34 Serum or plasma alanine aminotransferase measurement (enzymatic activity/volume ) 15 U/L 0-55 Serum or plasma protein measurement (mass/volume) 6.7 g/dL 6.4-8.2 Serum or plasma albumin measurement (mass/volume) 4.0 g/dL 3.2-4.5 Lipase - 02/26/16 02:16 Lipase 18 U/L 8-78 Complete blood count (CBC) with automated white blood cell (WBC) differential - 02/26/16 19:19 Blood leukocytes automated count (number/volume) 13.7 10*3/uL 4.3-11.0 Blood erythrocytes automated count (number/volume) 4.62 10*6/uL 4.35-5.85 Venous blood hemoglobin measurement (mass/volume) 14.3 g/dL 11.5-16.0 Blood hematocrit (volume fraction) 42 % 35-52 Automated erythrocyte mean corpuscular volume 92 [foz_us] 80-99 Automated erythrocyte mean corpuscular hemoglobin (mass per erythrocyte) 31 pg 25-34 Automated erythrocyte mean corpuscular hemoglobin concentration measurement ( mass/volume) 34 g/dL 32-36 Automated erythrocyte distribution width ratio 13.2 % 10.0-14.5 Automated blood platelet count (count/volume) 277 10*3/uL 130-400 Automated blood platelet mean volume measurement 9.7 [foz_us] 7.4-10.4 Automated blood neutrophils/100 leukocytes 89 % 42-75 Automated blood lymphocytes/100 leukocytes 7 % 12-44 Blood monocytes/100 leukocytes 4 % 0-12 Automated blood eosinophils/100 leukocytes 0 % 0-10 Automated blood basophils/100 leukocytes 0 % 0-10 Blood neutrophils automated count (number/volume) 12.1 10*3 1.8-7.8 Blood lymphocytes automated count (number/volume) 1.0 10*3 1.0-4.0 Blood monocytes automated count (number/volume) 0.6 10*3 0.0-1.0 Automated eosinophil count 0.0 10*3/uL 0.0-0.3 Automated blood basophil count (count/volume) 0.0 10*3/uL 0.0-0.1 Whole blood basic metabolic panel - 02/26/16 19:19 Serum or plasma sodium measurement (moles/volume) 134 mmol/L 135-145 Serum or plasma potassium measurement (moles/volume) 3.2 mmol/L 3.6-5.0 Serum or plasma chloride measurement (moles/volume) 91 mmol/L 98-107 Carbon dioxide 26 mmol/L 21-32 Serum or plasma anion gap determination (moles/volume) 17 mmol/L 5-14 Serum or plasma urea nitrogen measurement (mass/volume) 15 mg/dL 7-18 Serum or plasma creatinine measurement (mass/volume) 0.85 mg/dL 0.60-1.30 Serum or plasma urea nitrogen/creatinine mass ratio 18 NRG Serum or plasma creatinine measurement with calculation of estimated glomerular filtration rate > NRG Serum or plasma glucose measurement (mass/volume) 116 mg/dL 70-105 Serum or plasma calcium measurement (mass/volume) 9.5 mg/dL 8.5-10.1 Blood manual differential performed detection - 02/26/16 19:19 Blood monocytes/100 leukocytes 5 % NRG Manual blood segmented neutrophils/100 leukocytes 85 % NRG Blood band neutrophils/100 leukocytes 2 % NRG Manual blood lymphocytes/100 leukocytes 8 % NRG Manual eosinophils/100 leukocytes in nose 0 % NRG Manual blood basophils/100 leukocytes 0 % NRG Blood erythrocyte morphology finding identification NORMAL NRG Complete urinalysis with reflex to culture - 02/26/16 20:00 Urine color determination AKILA NRG Urine clarity determination SLIGHTLY CLOUDY NRG Urine pH measurement by test strip 5 5-9 Specific gravity of urine by test strip 1.015 1.016- 1.022 Urine protein assay by test strip, semi-quantitative 2+ NEGATIVE Urine glucose detection by automated test strip NEGATIVE NEGATIVE Erythrocytes detection in urine sediment by light microscopy NEGATIVE NEGATIVE Urine ketones detection by automated test strip 2+ NEGATIVE Urine nitrite detection by test strip POSITIVE NEGATIVE Urine total bilirubin detection by test strip NEGATIVE NEGATIVE Urine urobilinogen measurement by automated test strip (mass/volume) 4 mg/dL NORMAL Urine leukocyte esterase detection by dipstick 1+ NEGATIVE Automated urine sediment erythrocyte count by microscopy (number/high power field) NONE NRG Automated urine sediment leukocyte count by microscopy (number/high power field ) [HPF] NRG Bacteria detection in urine sediment by light microscopy FEW NRG Crystals detection in urine sediment by light microscopy NONE NRG Casts detection in urine sediment by light microscopy NONE NRG Mucus detection in urine sediment by light microscopy SMALL NRG Complete urinalysis with reflex to culture YES NRG Bacterial urine culture - 02/26/16 20:00 Bacterial urine culture NG NRG Complete blood count (CBC) with automated white blood cell (WBC) differential - 03/05/16 17:01 Blood leukocytes automated count (number/volume) 5.9 10*3/uL 4.3-11.0 Blood erythrocytes automated count (number/volume) 3.94 10*6/uL 4.35-5.85 Venous blood hemoglobin measurement (mass/volume) 12.2 g/dL 11.5-16.0 Blood hematocrit (volume fraction) 37 % 35-52 Automated erythrocyte mean corpuscular volume 95 [foz_us] 80-99 Automated erythrocyte mean corpuscular hemoglobin (mass per erythrocyte) 31 pg 25-34 Automated erythrocyte mean corpuscular hemoglobin concentration measurement ( mass/volume) 33 g/dL 32-36 Automated erythrocyte distribution width ratio 13.0 % 10.0-14.5 Automated blood platelet count (count/volume) 253 10*3/uL 130-400 Automated blood platelet mean volume measurement 9.2 [foz_us] 7.4-10.4 Automated blood neutrophils/100 leukocytes 69 % 42-75 Automated blood lymphocytes/100 leukocytes 18 % 12-44 Blood monocytes/100 leukocytes 9 % 0-12 Automated blood eosinophils/100 leukocytes 3 % 0-10 Automated blood basophils/100 leukocytes 1 % 0-10 Blood neutrophils automated count (number/volume) 4.0 10*3 1.8-7.8 Blood lymphocytes automated count (number/volume) 1.1 10*3 1.0-4.0 Blood monocytes automated count (number/volume) 0.5 10*3 0.0-1.0 Automated eosinophil count 0.2 10*3/uL 0.0-0.3 Automated blood basophil count (count/volume) 0.0 10*3/uL 0.0-0.1 Comprehensive metabolic panel - 03/05/16 17:01 Serum or plasma sodium measurement (moles/volume) 137 mmol/L 135-145 Serum or plasma potassium measurement (moles/volume) 4.2 mmol/L 3.6-5.0 Serum or plasma chloride measurement (moles/volume) 99 mmol/L 98-107 Carbon dioxide 31 mmol/L 21-32 Serum or plasma anion gap determination (moles/volume) 7 mmol/L 5-14 Serum or plasma urea nitrogen measurement (mass/volume) 10 mg/dL 7-18 Serum or plasma creatinine measurement (mass/volume) 0.79 mg/dL 0.60-1.30 Serum or plasma urea nitrogen/creatinine mass ratio 13 NRG Serum or plasma creatinine measurement with calculation of estimated glomerular filtration rate > NRG Serum or plasma glucose measurement (mass/volume) 112 mg/dL 70-105 Serum or plasma calcium measurement (mass/volume) 9.8 mg/dL 8.5-10.1 Serum or plasma total bilirubin measurement (mass/volume) 0.5 mg/dL 0.1-1.0 Serum or plasma alkaline phosphatase measurement (enzymatic activity/volume) 61 U/L 40-136 Serum or plasma aspartate aminotransferase measurement (enzymatic activity/ volume) 18 U/L 5-34 Serum or plasma alanine aminotransferase measurement (enzymatic activity/volume ) 12 U/L 0-55 Serum or plasma protein measurement (mass/volume) 6.7 g/dL 6.4-8.2 Serum or plasma albumin measurement (mass/volume) 3.8 g/dL 3.2-4.5 Complete urinalysis with reflex to culture - 03/05/16 17:11 Urine color determination YELLOW NRG Urine clarity determination CLEAR NRG Urine pH measurement by test strip 8 5-9 Specific gravity of urine by test strip 1.010 1.016- 1.022 Urine protein assay by test strip, semi-quantitative NEGATIVE NEGATIVE Urine glucose detection by automated test strip NEGATIVE NEGATIVE Erythrocytes detection in urine sediment by light microscopy NEGATIVE NEGATIVE Urine ketones detection by automated test strip NEGATIVE NEGATIVE Urine nitrite detection by test strip NEGATIVE NEGATIVE Urine total bilirubin detection by test strip NEGATIVE NEGATIVE Urine urobilinogen measurement by automated test strip (mass/volume) NORMAL NORMAL Urine leukocyte esterase detection by dipstick NEGATIVE NEGATIVE Automated urine sediment erythrocyte count by microscopy (number/high power field) NONE NRG Automated urine sediment leukocyte count by microscopy (number/high power field ) [HPF] NRG Bacteria detection in urine sediment by light microscopy NEGATIVE NRG Squamous epithelial cells detection in urine sediment by light microscopy 0-2 NRG Crystals detection in urine sediment by light microscopy NONE NRG Casts detection in urine sediment by light microscopy NONE NRG Mucus detection in urine sediment by light microscopy NEGATIVE NRG Complete urinalysis with reflex to culture NO NRG Urinalysis - 03/11/16 00:01 Icotest N/A Negative Urine Volume Urine Volume Sufficient (10mL) Urine Yeast No Yeast present Urine-Appearance Clear Clear Urine-Bacteria Negative Urine-Bilirubin Negative Negative Urine-Blood Negative Negative Urine-Color Yellow Colorless-Lt. Yellow Urine-Epithelial Cells 0-5/HPF Urine-Glucose Negative Negative Urine-Ketones Negative Negative Urine-Leukocytes Trace Negative Urine-Nitrite Negative Negative Urine-Other Urine Saved if Culture Needed (48hrs from time of collection) Urine-pH 7.0 5-8.5 Urine-Protein Negative Negative Urine-RBC Negative Urine-Specific [place] 1.015 1.000-1.030 Urine-WBC 2-5/HPF Urobilinogen 0.2 0.2-1.0 Urine Culture - 03/11/16 00:34 PRELIM CULTURE RESULTS <10,000 Gram Positive Mixed Judith [id number] Skin Contaminant FINAL CULTURE RESULTS <10,000 Gram Positive Mixed Judith [id number] Skin [id number] Further Workup done MEDIA PLATED Setup at 01:27 on 03/11/2016 CULTURE SOURCE void Comprehensive Metabolic Panel - 03/11/16 00:50 Albumin 3.5 g/dL 3.6-5.1 ALP 44 U/L 35-130 ALT 17 U/L 6-45 Anion Gap 12 6-14 AST 18 U/L 2-40 BUN 13 mg/dL 5-25 Calcium 8.7 mg/dL 8.3-10.4 Chloride 94 mmol/L 95-114 CO2 28 mEq/L 22-33 Creat 0.68 mg/dL 0.50-1.50 eGFR 83 mL/min/1.73m2 >59 Globulin 2.5 g/dL 2.3-3.5 Glucose 89 mg/dL 70-110 Osmo 267 280-295 Potassium 4.7 mmol/L 3.5-5.3 Sodium 129 mmol/L 134-148 TBil 0.2 mg/dL 0.2-1.2 TP 6.0 g/dL 6.0-8.3 CBC with Auto Diff - 03/11/16 00:55 Baso% 0.40 % 0.00-2.50 Eos 0.3 K/uL 0.0-0.7 Eos% 3.3 % 0.0-7.0 Hct 35.3 % 36.0-46.0 Hgb 11.5 g/dL 13.0-15.0 Lym 1.51 K/uL 0.60-3.40 Lym% 14.7 % 10.0-50.0 MCH 30.8 pg 27.0-31.0 MCHC 32.6 g/dL 32.0-36.0 MCV 94.6 fL 80.0-97.0 [place]% 11.7 % 0.0-12.0 MPV 8.9 fL 7.4-10.0 Doris% 69.9 % 37.0-80.0 Plt 255 K/uL 150-400 RBC 3.73 M/uL 3.60-5.00 RDW 12.8 % 11.6-14.8 WBC 10.24 K/uL 5.00-10.00 Doris 7.15 K/uL 2.00-6.90 [place] 1.2 K/uL 0.0-0.9 Baso 0.0 K/uL 0.0-0.2 Urinalysis - 03/14/16 16:18 Icotest N/A Negative Urine Volume Urine Volume Sufficient (10mL) Urine Yeast No Yeast present Urine-Appearance Clear Clear Urine-Bacteria Trace Urine-Bilirubin Negative Negative Urine-Blood Negative Negative Urine-Color Yellow Colorless-Lt. Yellow Urine-Epithelial Cells 0-5/HPF Urine-Glucose Negative Negative Urine-Ketones Negative Negative Urine-Leukocytes Negative Negative Urine-Nitrite Negative Negative Urine-Other Urine Saved if Culture Needed (48hrs from time of collection) Urine-pH 7.5 5-8.5 Urine-Protein Negative Negative Urine-RBC Negative Urine-Specific [place] 1.015 1.000-1.030 Urine-WBC Negative Urobilinogen 0.2 E.U./dL 0.2-1.0 BMP - 03/14/16 17:02 Anion Gap 13 6-14 BUN 9 mg/dL 5-25 Calcium 8.9 mg/dL 8.3-10.4 Chloride 101 mmol/L 95-114 CO2 28 mEq/L 22-33 Creat 0.71 mg/dL 0.50-1.50 eGFR 79 mL/min/1.73m2 >59 Glucose 103 mg/dL 70-110 Osmo 282 280-295 Potassium 4.7 mmol/L 3.5-5.3 Sodium 137 mmol/L 134-148 Complete blood count (CBC) with automated white blood cell (WBC) differential - 08/04/16 19:48 Blood leukocytes automated count (number/volume) 10.0 10*3/uL 4.3-11.0 Blood erythrocytes automated count (number/volume) 4.59 10*6/uL 4.35-5.85 Venous blood hemoglobin measurement (mass/volume) 13.8 g/dL 11.5-16.0 Blood hematocrit (volume fraction) 43 % 35-52 Automated erythrocyte mean corpuscular volume 93 [foz_us] 80-99 Automated erythrocyte mean corpuscular hemoglobin (mass per erythrocyte) 30 pg 25-34 Automated erythrocyte mean corpuscular hemoglobin concentration measurement ( mass/volume) 33 g/dL 32-36 Automated erythrocyte distribution width ratio 13.7 % 10.0-14.5 Automated blood platelet count (count/volume) 282 10*3/uL 130-400 Automated blood platelet mean volume measurement 9.3 [foz_us] 7.4-10.4 Automated blood neutrophils/100 leukocytes 72 % 42-75 Automated blood lymphocytes/100 leukocytes 16 % 12-44 Blood monocytes/100 leukocytes 11 % 0-12 Automated blood eosinophils/100 leukocytes 2 % 0-10 Automated blood basophils/100 leukocytes 0 % 0-10 Blood neutrophils automated count (number/volume) 7.2 10*3 1.8-7.8 Blood lymphocytes automated count (number/volume) 1.6 10*3 1.0-4.0 Blood monocytes automated count (number/volume) 1.1 10*3 0.0-1.0 Automated eosinophil count 0.2 10*3/uL 0.0-0.3 Automated blood basophil count (count/volume) 0.0 10*3/uL 0.0-0.1 Comprehensive metabolic panel - 08/04/16 19:48 Serum or plasma sodium measurement (moles/volume) 138 mmol/L 135-145 Serum or plasma potassium measurement (moles/volume) 4.0 mmol/L 3.6-5.0 Serum or plasma chloride measurement (moles/volume) 101 mmol/L 98-107 Carbon dioxide 26 mmol/L 21-32 Serum or plasma anion gap determination (moles/volume) 11 mmol/L 5-14 Serum or plasma urea nitrogen measurement (mass/volume) 19 mg/dL 7-18 Serum or plasma creatinine measurement (mass/volume) 0.69 mg/dL 0.60-1.30 Serum or plasma urea nitrogen/creatinine mass ratio 28 NRG Serum or plasma creatinine measurement with calculation of estimated glomerular filtration rate > NRG Serum or plasma glucose measurement (mass/volume) 108 mg/dL 70-105 Serum or plasma calcium measurement (mass/volume) 9.7 mg/dL 8.5-10.1 Serum or plasma total bilirubin measurement (mass/volume) 0.3 mg/dL 0.1-1.0 Serum or plasma alkaline phosphatase measurement (enzymatic activity/volume) 65 U/L 40-136 Serum or plasma aspartate aminotransferase measurement (enzymatic activity/ volume) 30 U/L 5-34 Serum or plasma alanine aminotransferase measurement (enzymatic activity/volume ) 41 U/L 0-55 Serum or plasma protein measurement (mass/volume) 7.0 g/dL 6.4-8.2 Serum or plasma albumin measurement (mass/volume) 3.8 g/dL 3.2-4.5 Magnesium - 08/04/16 19:48 Magnesium 2.3 mg/dL 1.8-2.4 Serum or plasma troponin i.cardiac measurement (mass/volume) - 08/04/16 19:48 Serum or plasma troponin i.cardiac measurement (mass/volume) < ng/ mL <0.30 Serum or plasma thyrotropin measurement by detection limit <=0.05 miu/l (units/ volume) - 08/04/16 19:48 Serum or plasma thyrotropin measurement by detection limit <=0.05 miu/l (units/ volume) 1.19 u[iU]/mL 0.35-4.94 Serum or plasma salicylates measurement (mass/volume) - 08/04/16 19:48 Serum or plasma salicylates measurement (mass/volume) < mg/dL 5.0-20.0 Serum or plasma acetaminophen measurement (mass/volume) - 08/04/16 19:48 Serum or plasma acetaminophen measurement (mass/volume) < ug/mL 10-30 Serum or plasma ethanol measurement (mass/volume) - 08/04/16 19:48 Serum or plasma ethanol measurement (mass/volume) < mg/dL <10 Encounters ACCT No. Visit Date/Time Discharge Status Pt. Type Provider Facility Loc./Unit Complaint [id number] 06/14/2014 14:20:00 06/14/2014 23:59:59 [facility] Outpatient BABAK TRIANA MD [id number] 05/02/2014 16:45:00 05/02/2014 23:59:59 CLS Outpatient ARGELIA ATKINSON DO [id number] 03/29/2014 13:26:00 03/29/2014 23:59:59 CLS Outpatient ARGELIA ATKINSON DO [id number] 03/15/2014 15:40:00 03/15/2014 23:59:59 CLS Outpatient ALANA GOLD APRN [id number] 03/15/2014 15:40:00 03/15/2014 23:59:59 CLS Outpatient ARGELIA ATKINSON DO [id number] 02/15/2014 14:55:00 02/15/2014 23:59:59 CLS Outpatient BABAK TRIANA MD [id number] 01/14/2014 14:53:00 01/14/2014 23:59:59 CLS Outpatient BABAK TRIANA MD [id number] 01/14/2014 14:53:00 01/14/2014 23:59:59 CLS Outpatient BABAK TRIANA MD [id number] 12/17/2013 14:39:00 12/17/2013 23:59:59 CLS Outpatient BABAK TRIANA MD N [id number] 10/20/2013 14:48:00 10/20/2013 23:59:59 CLS Outpatient BABAK TRIANA MD [id number] 07/26/2013 15:32:00 07/26/2013 23:59:59 CLS Outpatient ATKINSON DOARGELIA Julio [id number] 07/26/2013 15:32:00 07/26/2013 23:59:59 CLS Outpatient ATKINSON DO ARGELIA K [id number] 07/20/2013 14:16:00 07/20/2013 23:59:59 CLS Outpatient ATKINSON DOTINBecky Kim [id number] 06/22/2013 16:12:00 06/22/2013 23:59:59 CLS Outpatient ATKINSON DO ARGELIA K [id number] 04/19/2013 14:49:00 04/19/2013 23:59:59 CLS Outpatient ATKINSON DO ARGELIA K [id number] 12/28/2012 17:03:00 12/28/2012 23:59:59 CLS Outpatient ATKINSON DOARGELIA [id number] 11/30/2012 13:31:00 11/30/2012 23:59:59 CLS Outpatient ATKINSON DO, ARGELIA K [id number] 11/30/2012 13:31:00 11/30/2012 23:59:59 CLS Outpatient ATKINSON DO ARGELIA K [id number] 10/21/2012 15:22:00 10/21/2012 23:59:59 CLS Outpatient ALANA GOLD APRN [id number] 04/21/2012 17:23:00 04/21/2012 23:59:59 CLS Outpatient ATKINSON DOARGELIA [id number] 04/08/2012 14:46:00 04/08/2012 23:59:59 CLS Outpatient ATKINSON DOARGELIA [id number] 03/26/2012 15:51:00 03/26/2012 23:59:59 CLS Outpatient [id number] 01/23/2012 15:27:00 01/23/2012 23:59:59 [place] [id number] 12/09/2011 16:14:00 12/09/2011 23:59:59 CLS Outpatient ARGELIA ATKINSON DO [id number] 11/03/2012 14:09:00 Document Registration [id number] 10/21/2012 15:22:00 Document Registration [id number] 09/16/2012 15:17:00 Document Registration [id number] 08/17/2012 15:17:00 Document Registration [id number] 07/28/2012 15:48:00 Document Registration [id number] 07/13/2012 15:52:00 Document Registration [id number] 07/09/2012 15:59:00 Document Registration [id number] 06/03/2012 15:46:00 Document Registration [id number] 09/22/2014 04:18:47 ACT Document Registration [id number] 03/14/2016 16:01:00 03/14/2016 20:10:00 [id number] 03/10/2016 23:42:00 03/11/2016 02:46:00 DIS Outpatient LAURA PATEL [id number] 03/14/2016 19:24:30 Document Registration [id number] 08/20/2016 16:56:00 08/20/2016 17:23:00 DIS Emergency CESAR KNIGHT MD [facility] ER DRY MOUTH [id number] 08/04/2016 19:15:00 08/04/2016 21:48:00 DIS Emergency DEANA PERDOMO [facility] ER ANXIETY [id number] 03/05/2016 16:59:00 03/05/2016 18:02:00 DIS Emergency FEDERICA REYES APRN [facility] ER ABD PAIN [id number] 02/26/2016 14:00:00 02/26/2016 21:18:00 DIS Outpatient BOBO FERNANDEZ DO [facility] ER ABD PAIN, UTI SYMPTOMS [id number] 02/26/2016 01:11:00 02/26/2016 04:40:00 DIS Emergency BOBO FERNANDEZ DO [facility] ER AB PAIN [id number] 02/25/2016 14:39:00 02/25/2016 16:57:00 DIS Emergency BRIGID COLES DO [facility] ER HIP PAIN [id number] 12/27/2015 17:34:00 12/27/2015 20:12:00 DIS Emergency DEANA PERDOMO [facility] ER HIP PAIN [id number] 07/07/2015 15:59:00 07/07/2015 23:59:59 CLS 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 PAIN [id number] 06/16/2015 11:15:00 06/16/2015 12:26:00 DIS 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 HIP PAIN [id number] 06/07/2015 11:53:00 06/07/2015 14:52:00 DIS Emergency DEANA PERDOMO [facility] ER BILAT HIP/KNEE PAIN [id number] 05/22/2015 15:43:00 05/22/2015 16:43:00 DIS Emergency DEANA PERDOMO [facility] ER TOE PAIN [id number] 03/09/2015 15:55:00 03/22/2015 10:32:00 DIS Outpatient BABAK TRIANA MD [facility] REHAB B HIP PAIN [id number] 09/21/2014 15:55:00 09/21/2014 18:40:00 DIS Emergency DEANA PERDOMO [facility] ER SPIDER BITE [id number] 07/10/2014 15:33:00 07/10/2014 17:06:00 DIS 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 FOOT SWELLING [id number] 06/20/2014 19:15:00 06/20/2014 21:04:00 DIS 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 ANXIETY [id number] 06/18/2014 16:31:00 06/18/2014 16:48:00 DIS Emergency FEDERICA REYES APRN [facility] ANXIETY [id number] 06/11/2014 17:44:00 06/11/2014 19:44:00 DIS Emergency CESAR KNIGHT MD [facility] [facility] ER VOMITING,COUGH [id number] 03/20/2014 17:33:00 03/20/2014 20:10:00 DIS Emergency DEANA PERDOMO Via [facility] ER GENERALIZED PAIN [id number] 03/12/2014 17:22:00 03/12/2014 17:53:00 DIS Emergency FEDERICA REYES APRN Via [facility] ER HIP/LEG PAIN HEADACHE [id number] 12/03/2013 17:07:00 12/03/2013 17:48:00 DIS Emergency FEDERICA REYES APRN Via [facility] ER BILATERAL LEG BURNING [id number] 10/10/2013 20:21:00 10/10/2013 21:24:00 DIS Emergency DEANA PERDOMO Via [facility] ER EAR PAIN [id number] 09/17/2013 20:52:00 09/17/2013 22:35:00 DIS Emergency FEDERICA REYES APRN Via [facility] ER LEG AND SHOULDER PAIN;UTI SYM [id number] 09/07/2013 20:41:00 09/07/2013 22:22:00 DIS Emergency DEANA PERDOMO Via [facility] ER HIP PAIN; LEG PAIN [id number] 08/29/2013 17:23:00 08/29/2013 18:55:00 DIS Emergency FEDERICA REYES APRN Via [facility] ER ABD PAIN [id number] 08/28/2013 17:00:00 08/28/2013 19:49:00 DIS Emergency JOSE COPE MD Via [facility] ER ABD PAIN/BLACK STOOLS [id number] 08/07/2013 19:05:00 08/07/2013 20:27:00 DIS Emergency CESAR KNIGHT MD Via [facility] ER BLOOD IN STOOL [id number] 08/01/2013 19:31:00 08/01/2013 20:41:00 DIS Emergency DEANA PERDOMO Via [facility] ER LEG PAIN [id number] 07/13/2013 17:05:00 07/13/2013 19:05:00 DIS Emergency FEDERICA REYES APRN Via [facility] ER PAIN IN LEGS AND HIP [id number] 05/14/2013 18:32:00 05/14/2013 19:19:00 DIS Emergency SANKET BRIGID K Via [facility] ER LEG PAIN [id number] 02/24/2013 16:43:00 02/24/2013 23:59:59 CLS Preadmit HALLEY ARREDONDO MD Via [facility] ER HIP PAIN [id number] 12/27/2012 19:07:00 12/27/2012 21:15:00 DIS Emergency BRIGID COLES DO Via [facility] ER FEVER [id number] 12/13/2012 18:55:00 12/13/2012 19:22:00 DIS Emergency HALLEY ARREDONDO MD Via [facility] ER TALK TO DR ABOUT PILLS [id number] 11/29/2012 18:52:00 11/29/2012 20:58:00 DIS Emergency HALLEY ARREDONDO MD Via [facility] ER HIP PAIN/OUT OF MEDS [id number] 11/01/2012 19:35:00 11/01/2012 19:40:00 DIS Emergency JOSE COPE MD Via [facility] ER HIP PAIN [id number] 10/03/2012 21:04:00 10/03/2012 21:39:00 DIS Emergency JOSE COPE MD Via [facility] POSS ABSCESS [id number] 07/19/2012 20:34:00 07/19/2012 22:07:00 DIS Emergency DEANA PERDOMO Via [facility] POSS TOE INFECTION [id number] 08/09/2014 13:56:00 Document Registration [id number] 08/09/2014 13:56:00 Document Registration [id number] 08/09/2014 13:56:00 Document Registration [id number] 08/09/2014 13:56:00 Document Registration [id number] 08/09/2014 13:56:00 Document Registration [id number] 08/09/2014 13:56:00 Document Registration [id number] 04/07/2014 20:15:00 ACT Inpatient ATKINSON , ARGELIA Kim Via [address] UTI-CONFUSION [id number] 09/05/2013 18:41:00 Document Registration [id number] 06/06/2012 20:38:00 Document Registration [id number] 02/08/2011 14:29:00 Document Registration [id number] 09/13/2010 13:27:00 Document Registration [id number] 07/06/2010 12:36:00 Document Registration [id number] 06/13/2010 13:42:00 Document Registration [id number] 12/04/2009 06:02:00 Document Registration [id number] 11/28/2009 14:22:00 Document Registration [id number] 11/09/2009 13:38:00 Document Registration [id number] 10/12/2009 13:51:00 Document Registration [id number] 07/15/2009 23:33:00 Document Registration [id number] 07/14/2009 17:30:00 Document Registration [id number] 07/09/2009 13:27:00 Document Registration [id number] 07/02/2009 18:25:00 Document Registration [id number] 03/30/2009 14:19:00 Document Registration [id number] 07/13/2006 17:08:00 Document Registration [id number] 08/28/2017 14:20:00 08/28/2017 23:59:59 CLS Outpatient KONG GREWAL, BABAK Sheppard [facility]
[2017-10-26 14:25] VITALS: BP 143/101
== END 2017-10-26 14:27 | disposition home or self-care (01) ==
LOC: EDUNIT# 13:25 → ER 13:26
DX: K08.89 Other specified disorders of teeth and supporting structures (principal); F41.9 Anxiety disorder, unspecified; F03.90 Unspecified dementia, unspecified severity, without behavioral disturbance, psychotic disturbance, mood disturbance, and anxiety; F32.9 Major depressive disorder, single episode, unspecified; Z87.448 Personal history of other diseases of urinary system; Z87.19 Personal history of other diseases of the digestive system; Z79.52 Long term (current) use of systemic steroids; Z90.89 Acquired absence of other organs
CPT/HCPCS: 93005; 99283

== ENCOUNTER 2017-12-05 13:06 | Emergency (ER) | payer MEDICARE, MEDICAID ==
[~2017-12-05] VITALS: Ht 162.6 cm; Wt 59.0 kg
--- NOTE | 2017-12-05 14:27 | ED Psychosocial ---
General Stated Complaint: ANXIETY Source: patient Exam Limitations: no limitations History of Present Illness Date Seen by Provider: Dec 05, 2017 Time Seen by Provider: 14:26 Initial Comments To ER per EMS from home and normal with reports of anxiety. She has a long history of anxiety and described a [facility] at [place]. She states that she does not want to go home because she has no one at home to take care of her but she does not want to be admitted to a retirement. She would prefer to be admitted to the hospital. Timing/Duration: just prior to arrival Severity: moderate Associated Symptoms: anxiety Allergies and Home Medications Allergies Coded Allergies: No Known Drug Allergies (Unverified , 04/26/09) Home Medications Buspirone Hcl 5 Mg Tablet, 5 MG PO BID, (Reported) Clonazepam 0.5 Mg Tablet, 1 EACH PO BID, (Reported) Duloxetine Hcl 60 Mg Capsule.dr, 60 MG PO DAILY, (Reported) Famotidine 20 Mg Tablet, 20 MG PO BID, (Reported) Ferrous Sulfate 325 Mg Tablet, 325 MG PO HS, (Reported) Furosemide 40 Mg Tablet, 20 MG PO DAILY We will cut the 40mg tabs in half while you still have this prescription Prescribed by: WENDY DUNBAR on 04/12/14 1433 Furosemide 20 Mg Tablet, 20 MG PO UD 1 po qAM Prescribed by: DEANA FUNEZ on 12/27/15 1854 Lorazepam 1 Mg Tab, 1 EACH PO DAILY PRN for ANXIETY, (Reported) Meloxicam 7.5 Mg Tablet, 1 EACH PO DAILY, (Reported) Prednisone 20 Mg Tab, 20 MG PO BID Prescribed by: DEANA FUNEZ on 06/07/15 1452 Trazodone Hcl 100 Mg Tablet, 100 MG PO HS, (Reported) Patient Home Medication List Home Medication List Reviewed: Yes Review of Systems Constitutional: see HPI EENTM: see HPI Respiratory: no symptoms reported Cardiovascular: no symptoms reported Genitourinary: no symptoms reported Musculoskeletal: no symptoms reported Skin: see HPI Psychiatric/Neurological: See HPI, Anxiety Past Ocubccs-Klkavv-Osjsoc Hx Patient Social History 2nd Hand Smoke Exposure: No Recent Hopitalizations: No Immunizations Up To Date Tetanus Booster (TDap): Unknown Date of Influenza Vaccine: Nov 24, 2014 Seasonal Allergies Seasonal Allergies: No Past Medical History Surgeries: Yes Appendectomy, Orthopedic Respiratory: No Cardiac: Yes (chronic pedal edema) Chronic Edema/Swelling Neurological: Yes (dementia) Dementia Reproductive Disorders: No Sexually Transmitted Disease: No Bladder Infection Gastrointestinal: Yes Diverticulosis Musculoskeletal: Yes (CHRONIC GENERALIZED PAIN, ESPECIALLY HIPS--NARCOTIC DEPENDENCY AND ABUSE. ) Arthritis Endocrine: No Cancer: No (per pt "brain tumor" unknown ) Psychosocial: Yes Anxiety, Depression Integumentary: No Blood Disorders: No Adverse Reaction/Blood Tranf: No Family Medical History Patient reports no known family medical history. No Pertinent Family Hx Physical Exam Capillary Refill : Height, Weight, BMI Height: 5'3.00" Weight: 150lbs. 6.0oz. 68.739648kf; 23.91 BMI Method:Estimated General Appearance: WD/WN, no apparent distress HEENT: PERRL/EOMI, normal ENT inspection Neck: non-tender, full range of motion Respiratory: no respiratory distress, no accessory muscle use Gastrointestinal: normal bowel sounds, non tender, soft Neurologic/Psychiatric: alert, normal mood/affect, oriented x 3 Appearance/Memory: appropriate appearance, appropriate insight Behavior/Eye Contact: cooperative, good eye contact Thoughts/Hallucinations: normal thought pattern, no apparent hallucination, auditory hallucinations Skin: normal color, warm/dry Departure Impression Primary Impression: Anxiety Disposition: 01 HOME, SELF-CARE Condition: Stable Departure-Patient Inst. Decision time for Depature: 14:27 Referrals: BABAK TRIANA MD (PCP/Family) Primary Care Physician Patient Instructions: Anxiety, Adult (DC) Add. Discharge Instructions: 1. Return to ER for any concerns 2. Follow-up with your doctor next week 3. FEDERICA REYES APRN Dec 05, 2017 14:27
[2017-12-05] MEDS ORDERED: ALPRAZolam 0.25 MG (XANAX) TAB PO ONE (14:30)
[2017-12-05] MEDS ORDERED: IBUPROFEN 800 MG (MOTRIN) TAB PO ONE (15:00)
[2017-12-05 15:35] VITALS: BP 135/88
== END 2017-12-05 15:35 | disposition home or self-care (01) ==
LOC: EDUNIT# 13:06 → ER 13:07
DX: F41.9 Anxiety disorder, unspecified (principal); F03.90 Unspecified dementia, unspecified severity, without behavioral disturbance, psychotic disturbance, mood disturbance, and anxiety; F32.9 Major depressive disorder, single episode, unspecified; Z87.19 Personal history of other diseases of the digestive system; Z87.448 Personal history of other diseases of urinary system; Z79.52 Long term (current) use of systemic steroids; Z90.89 Acquired absence of other organs
CPT/HCPCS: 99283

== ENCOUNTER 2017-12-08 07:53 | Inpatient (IN) | payer MEDICARE, MEDICAID ==
[~2017-12-08] VITALS: Ht 162.6 cm; Wt 57.4 kg
[2017-12-08 09:30] LABS: BILIRUBIN,URINE NEGATIVE (NEGATIVE); CLARITY,URINE SLIGHTLY CLOUDY; COLOR,URINE YELLOW; GLUCOSE, URINE (UA) NEGATIVE (NEGATIVE); KETONES,URINE NEGATIVE (NEGATIVE); LEUKOCYTE ESTERASE ,URINE 3+ (NEGATIVE); NITRITE,URINE NEGATIVE (NEGATIVE); PH,URINE 7 (5-9); PROTEIN,URINE 1+ (NEGATIVE); UROBILINOGEN,URINE NORMAL (NORMAL)
[2017-12-08 09:37] LABS: BACTERIA,URINE LARGE /HPF; WBC,URINE TNTC /HPF
[2017-12-08 10:25] LABS: BASOPHILS % (AUTO) 0 % (0-10); EOSINOPHILS # (AUTO) 0.5 10^3/uL (0.0-0.3); EOSINOPHILS % (AUTO) 5 % (0-10); HEMATOCRIT 34 % (35-52); HEMOGLOBIN 11.3 G/DL (11.5-16.0); LYMPHOCYTES # (AUTO) 1.2 X 10^3 (1.0-4.0); LYMPHOCYTES % (AUTO) 13 % (12-44); MEAN CORPUSCULAR HEMOGLOBIN 31 PG (25-34); MEAN CORPUSCULAR HGB CONC 33 G/DL (32-36); MEAN CORPUSCULAR VOLUME 94 FL (80-99); MEAN PLATELET VOLUME 8.3 FL (7.4-10.4); MONOCYTES # (AUTO) 0.8 X 10^3 (0.0-1.0); MONOCYTES % (AUTO) 8 % (0-12); NEUTROPHILS # (AUTO) 7.1 X 10^3 (1.8-7.8); NEUTROPHILS % (AUTO) 74 % (42-75); PLATELET COUNT 409 10^3/uL (130-400); RED BLOOD COUNT 3.64 10^6/uL (4.35-5.85); RED CELL DISTRIBUTION WIDTH 12.6 % (10.0-14.5); WHITE BLOOD COUNT 9.6 10^3/uL (4.3-11.0)
--- NOTE | 2017-12-08 10:29 | Diagnostic Imaging Report ---
Clinical indication: Patient brought in by EMS with complaints of confusion and cold Patient woke home and did not know what to do. Exam: Chest x-ray PA and lateral views. Comparisons: Chest x-ray dated 06/11/2014. Findings: There is interval development of small bilateral pleural effusions with blunting of posterior costophrenic angle. There is interval development of subtle small patchy airspace opacities in the right mid lung field, right lung apex, and right lower lobe which may represent lung infiltrate/pneumonia. Pulmonary vasculature and cardiac silhouettes within normal limits. There is no pneumothorax. Hyperinflated lungs are again seen. Impression: 1: Concern for interval development of subtle infiltrate/pneumonia involving the right lung. There is also development of small bilateral pleural effusions. Dictated by: Dictated on workstation # [id number]
[2017-12-08] MEDS ORDERED: cefTRIAXone FOR IV USE 1,000 MG in NS (IVPB) 50 ML IV ONE (10:45)
[2017-12-08 10:48] LABS: ALANINE AMINOTRANSFERASE 21 U/L (0-55); ALBUMIN 3.4 GM/DL (3.2-4.5); ALKALINE PHOSPHATASE 95 U/L (40-136); BILIRUBIN,TOTAL 0.3 MG/DL (0.1-1.0); BUN/CREATININE RATIO 10; CALCIUM 9.1 MG/DL (8.5-10.1); CARBON DIOXIDE 27 MMOL/L (21-32); CHLORIDE 104 MMOL/L (98-107); CREATININE SERUM 0.71 MG/DL (0.60-1.30); GFR ESTIMATED > 60; GLUCOSE 103 MG/DL (70-105); POTASSIUM 4.1 MMOL/L (3.6-5.0); SODIUM 142 MMOL/L (135-145); TOTAL PROTEIN 6.8 GM/DL (6.4-8.2)
[2017-12-08 12:51] VITALS: BP 151/91
[2017-12-08] MEDS ORDERED: CATHETER FLUSH 10 ML SYR IV PRN (13:00)
[2017-12-08] MEDS ORDERED: AZITHROMYCIN 500 MG/NS 250 ML IVPB IV NR ×2 (13:00)
[2017-12-08] MEDS: CATHETER FLUSH 10 ML SYR IV SCH ×2 (13:20→20:23)
[2017-12-08] MEDS ORDERED: MELO7.5T46 PO (13:58)
[2017-12-08] MEDS ORDERED: CLON0.5T13 PO (13:58)
[2017-12-08] MEDS ORDERED: BUSP10TA95 PO (13:58)
[2017-12-08] MEDS ORDERED: RISP1TAB3 PO (13:58)
[2017-12-08] MEDS ORDERED: MIRT15TA6 PO (13:58)
[2017-12-08] MEDS ORDERED: DULO60CA58 PO (13:58)
[2017-12-08] MEDS ORDERED: IBUP-30 PO (14:22)
[2017-12-08] MEDS ORDERED: CYCL1DRO OU (14:22)
[2017-12-08] MEDS ORDERED: ACET-2267 PO (14:22)
[2017-12-08] MEDS ORDERED: FLU QUADRIvalent (5+ YOA) 2018-2019 (AFLURIA) 0.5 ML IM ONE (14:30)
[2017-12-08 16:44] VITALS: BP 128/65
[2017-12-08 18:00] VITALS: BP 140/72
--- NOTE | 2017-12-08 19:20 | ED General ---
General Chief Complaint: General Problems/Pain Stated Complaint: CONFUSION;COLD Nursing Triage Note: PT BROUGHT IN BY EMS WITH COMPLAINT OF CONFUSION AND COLD. STATES SHE WOKE UP AT HOME AND DID NOT KNOW WHAT TO DO. PT IS WEARING SAME CLOTHES THAT SHE WORE ON FRIDAY WHILE AT THE ER Nursing Sepsis Screen: No Definite Risk Source of Information: Patient (VERY POOR HISTORIAN--UNABLE TO OBTAIN ANY RELEVANT INFORMATION FROM PT), EMS, Old Records (ALL PMH IS FROM OLD RECORD) History of Present Illness Date Seen by Provider: Dec 08, 2017 Time Seen by Provider: 07:55 Initial Comments PT ARRIVES VIA EMS FROM HOME--PT LIVES AT HOME ALONE. PT CALLED EMS BECAUSE SHE WAS COLD EMS REPORTS THAT PT DID HAVE ON HEAT IN THE HOME, AND ROOM WAS COMFORTABLE TEMPERATURE ( TEMP LAST NIGHT DOWN TO 40'S/UPPER 30'S) EMS REPORT THAT PT CALLED GRANDDAUGHTER AND DAUGHTER AND THEY REFUSED TO COME TO PT'S HOUSE TO CHECK ON HER OR TO ACCOMPANY HER OR BRING HER TO HOSPITAL. 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 THEY REPORT THAT PT'S FAMILY REFUSED TO COME TO ER AND PICK PT UP, AND THAT ADULT ABUSE/NEGLECT HOTLINE WAS CONTACTED ON FRIDAY, FOR MULTIPLE ISSUES INCLUDING NO FOOD IN HOUSE. PCP: JT. Allergies and Home Medications Allergies Coded Allergies: No Known Drug Allergies (Unverified , 04/26/09) Home Medications Clonazepam 0.5 Mg Tablet, 0.5 MG PO TID, (Reported) Cyclosporine 1 Each Droperette, 1 DROP OU BID, (Reported) Ibuprofen 200 Mg Tablet, 400 MG PO BID, (Reported) Mirtazapine 15 Mg Tablet, 15 MG PO HS, (Reported) Risperidone 1 Mg Tablet, 1 MG PO TID, (Reported) Patient Home Medication List Home Medication List Reviewed: Yes Review of Systems Review of Systems Constitutional: see HPI (UNABLE TO OBTAIN ANY COMPLAINTS FROM PT) Past Oyemmpw-Reegax-Cyojjt Hx Patient Social History Alcohol Use: Denies Use Recreational Drug Use: No (BUT 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 AND ANXIETY) Smoking Status: Never a Smoker 2nd Hand Smoke Exposure: No Recent Foreign Travel: No Contact w/Someone Who Travel: No Recent Infectious Disease Expo: No Recent Hopitalizations: No Immunizations Up To Date Tetanus Booster (TDap): Unknown Date of Influenza Vaccine: Nov 24, 2014 Seasonal Allergies Seasonal Allergies: No Past Medical History Surgeries: Yes (BILATERAL HIP [id number] WITH LEFT HIP REPAIR/ REVISION 2008 FOR LOOSE HARDWARE; LEEP; BASAL CELL CA OF NOSE 2009; COLONOSCOPY 2005) Appendectomy, Joint Replacement, Orthopedic, Tonsillectomy Respiratory: No Cardiac: Yes Chronic Edema/Swelling Neurological: Yes (HX OF MENINGIOMA WITH NON-COMPLIANCE WITH HAVING MRI AND NEUROLOGY FOLLOW UP ) Dementia Reproductive Disorders: Yes (CERVICAL DYSPLASIA--S/P LEEP) Sexually Transmitted Disease: No Genitourinary: Yes Bladder Infection Gastrointestinal: Yes Diverticulosis Musculoskeletal: Yes (CHRONIC GENERALIZED PAIN, ESPECIALLY HIPS--NARCOTIC DEPENDENCY AND ABUSE. 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 ) Anxiety, Depression Integumentary: No Blood Disorders: No Adverse Reaction/Blood Tranf: No Family Medical History Patient reports no known family medical history. No Pertinent Family Hx Physical Exam Vital Signs Vital Signs - First Documented 12/08/17 07:57 Temp 98.0 Pulse 113 Resp 20 B/P (MAP) 145/75 (98) Pulse Ox 96 O2 Delivery Room Air Capillary Refill : Less Than 3 Seconds Height, Weight, BMI Height: 5'4.00" Weight: 134lbs. 4.0oz. 60.612069nf; 23.0 BMI Method:Stated General Appearance: No Apparent Distress, Other (SOMEWHAT LETHARGIC, VERY UNKEMPT, EXTREMELY POOR HYGIENE. CLOTHING SATURATED WITH URINE AND VERY DIRTY. ) HEENT: PERRL/EOMI Neck: Normal Inspection Respiratory: Normal Breath Sounds, No Accessory Muscle Use, No Respiratory Distress Cardiovascular: Regular Rate, Rhythm, No Edema, No Murmur, Normal Peripheral Pulses Gastrointestinal: Non Tender, Soft Back: No CVA Tenderness Extremity: Normal Inspection, No Pedal Edema Neurologic/Psychiatric: Alert (BTU SOMEWHAT LETHARGIC. ), No Motor/Sensory Deficits (GROSSLY INTACT), identity management developer II-XII Norm as Tested, Other (PT AT NORMAL BASELINE IN MENTATION. POOR MEMORY, ORIENTED TO PERSON, PLACE BUT SOMEWHAT CONFUSED TO SITUAION AND CONFUSED TO TIME. HAS SOME DIFFICULTY FOLLOWING ANYTHING BUT VERY SIMPLE COMMANDS. ) Skin: Warm/Dry, Rash (MACULOPAPULAR RASH TO LEFT LATERAL AND MEDIAL THIGH, LEFT GROIN AND TO BILATERAL LOWER LEGS--ANTERIOR PROXIMAL TIBIA AREAS. NO OPEN WOUNDS. BILATERAL GROIN AND LATERAL THIGH ALSO HAVE CENTRAL CLEARING AND SLIGHTLY BROWNISH DISCOLORATION) Focused Exam Lactate Level 12/08/17 11:45: Lactic Acid Level 0.94 12/08/17 13:05: Lactic Acid Level 0.84 Progress/Results/Core Measures Suspected Sepsis Recent Fever Within 48 Hours: No Infection Criteria Present: Suspected New Infection New/Unexplained Altered Menta: No Sepsis Screen: No Definite Risk SIRS Temperature:98.3 Pulse: 116 Respiratory Rate: 18 Laboratory Tests 12/08/17 10:15: White Blood Count 9.6 Blood Pressure 128 /65 Mean: 86 12/08/17 11:45: Lactic Acid Level 0.94 12/08/17 13:05: Lactic Acid Level 0.84 Laboratory Tests 12/08/17 10:15: Creatinine 0.71, Platelet Count 409H, Total Bilirubin 0.3 Results/Orders Lab Results Laboratory Tests Test 12/08/17 09:20 12/08/17 10:15 12/08/17 11:45 12/08/17 13:05 Range/Units Urine Color YELLOW Urine Clarity SLIGHTLY CLOUDY Urine pH 7 5-9 Urine Specific [place] 1.010 L 1.016-1.022 Urine Protein 1+ H NEGATIVE Urine Glucose (UA) NEGATIVE NEGATIVE Urine Ketones NEGATIVE NEGATIVE Urine Nitrite NEGATIVE NEGATIVE Urine Bilirubin NEGATIVE NEGATIVE Urine Urobilinogen NORMAL NORMAL MG/DL Urine Leukocyte Esterase 3+ H NEGATIVE Urine RBC (Auto) 3+ H NEGATIVE Urine RBC 10-25 H /HPF Urine WBC TNTC H /HPF Urine Squamous Epithelial Cells NONE /HPF Urine Crystals NONE /LPF Urine Bacteria LARGE H /HPF Urine Casts NONE /LPF Urine Mucus NEGATIVE /LPF Urine Culture Indicated YES White Blood Count 9.6 4.3-11.0 10^3/uL Red Blood Count 3.64 L 4.35-5.85 10^6/uL Hemoglobin 11.3 L 11.5-16.0 G/DL Hematocrit 34 L 35-52 % Mean Corpuscular Volume 94 80-99 FL Mean Corpuscular Hemoglobin 31 25-34 PG Mean Corpuscular Hemoglobin Concent 33 32-36 G/DL Red Cell Distribution Width 12.6 10.0-14.5 % Platelet Count 409 H 130-400 10^3/uL Mean Platelet Volume 8.3 7.4-10.4 FL Neutrophils (%) (Auto) 74 42-75 % Lymphocytes (%) (Auto) 13 12-44 % Monocytes (%) (Auto) 8 0-12 % Eosinophils (%) (Auto) 5 0-10 % Basophils (%) (Auto) 0 0-10 % Neutrophils # (Auto) 7.1 1.8-7.8 X 10^3 Lymphocytes # (Auto) 1.2 1.0-4.0 X 10^3 Monocytes # (Auto) 0.8 0.0-1.0 X 10^3 Eosinophils # (Auto) 0.5 H 0.0-0.3 10^3/uL Basophils # (Auto) 0.0 0.0-0.1 10^3/uL Sodium Level 142 135-145 MMOL/L Potassium Level 4.1 3.6-5.0 MMOL/L Chloride Level 104 98-107 MMOL/L Carbon Dioxide Level 27 21-32 MMOL/L Anion Gap 11 5-14 MMOL/L Blood Urea Nitrogen 7 7-18 MG/DL Creatinine 0.71 0.60-1.30 MG/DL Estimat Glomerular Filtration Rate > 60 BUN/Creatinine Ratio 10 Glucose Level 103 70-105 MG/DL Calcium Level 9.1 8.5-10.1 MG/DL Corrected Calcium 9.6 8.5-10.1 MG/DL Total Bilirubin 0.3 0.1-1.0 MG/DL Aspartate Amino Transf (AST/SGOT) 14 5-34 U/L Alanine Aminotransferase (ALT/SGPT) 21 0-55 U/L Alkaline Phosphatase 95 40-136 U/L Total Protein 6.8 6.4-8.2 GM/DL Albumin 3.4 3.2-4.5 GM/DL Lactic Acid Level 0.94 0.84 0.50-2.00 MMOL/L Micro Results Microbiology 12/08/17 Influenza Types A,B Antigen (JAN) - Final, Complete My Orders Orders - BRIGID COLES DO Accucheck Stat ONCE (12/08/17 08:06) Saline Lock/Iv-Start (12/08/17 08:06) Monitor-Rhythm Ecg Trace Only (12/08/17 08:06) Straight Cath For Spec.-Adult (12/08/17 08:06) Cbc With Automated Diff (12/08/17 08:06) Comprehensive Metabolic Panel (12/08/17 08:06) Ua Culture If Indicated (12/08/17 08:06) Chest Pa/Lat (2 View) (12/08/17 08:06) Urine Culture (12/08/17 09:20) Lactic Acid Analyzer (12/08/17 10:36) Blood Culture (12/08/17 10:36) Influenza A And B Antigens (12/08/17 10:36) Ceftriaxone For Iv Use (Rocephin For I (12/08/17 10:45) Saline Lock/Iv-Start (12/08/17 10:36) Medications Given in ED Current Medications Medications Dose Ordered Sig/Kristi Route Start Time Stop Time Status Last Admin Dose Admin Ceftriaxone Sodium 1000 mg/ Sodium Chloride 60 ml @ 100 mls/hr ONCE ONCE IV 12/08/17 10:45 12/08/17 11:20 DC 12/08/17 12:20 100 MLS/HR Vital Signs/I&O 12/08/17 12/08/17 12/08/17 12/08/17 07:57 12:09 12:30 12:51 Temp 98.0 96.5 Pulse 113 100 100 Resp 20 20 18 B/P (MAP) 145/75 (98) 140/70 (93) 151/91 (111) Pulse Ox 96 96 95 O2 Delivery Room Air Room Air Room Air Room Air 12/08/17 16:44 Temp 98.3 Pulse 116 Resp 18 B/P (MAP) 128/65 (86) Pulse Ox 96 O2 Delivery Room Air Capillary Refill : Less Than 3 Seconds Blood Pressure Mean: 86 Progress Note : Progress Note PT VERY EASILY AGITATED, IS HER NORMAL BASELINE WHEN I BROUGHT UP HALF-WAY PLACEMENT, PT SUDDENLY VERY AWAKE AND ALERT AND YELLING, BECOMING VERY ARGUMENTATIVE AND STATING SHE WILL NOT GO TO A HALF-WAY. UNABLE TO REASON WITH PT AT ALL, AND PT DOES NOT APPEAR TO UNDERSTAND THAT SHE IS NO LONGER CAPABLE OF TAKING CARE OF HERSELF AT HOME, AND IS NOT SAFE FOR HER TO BE AT HOME --PT NOW STATES SHE IS FINE AND DEMANDS TO GO HOME AND STATES HER DAUGHTER AND GRAND DAUGHTER WILL TAKE CARE OF HER PT IS UNABLE TO EVEN TURN HERSELF TO HER SIDE IN THE BED WITHOUT ASSISTANCE. LATER WHEN ADVISED THAT SHE WILL BE ADMITTED TO THE HOSPITAL, THE ABOVE BEHAVIOR RETURNS, AND DEMANDS THAT SHE TALK TO HER GRAND DAUGHTER--PT UNABLE TO COMPREHEND HOW TO USE TELEPHONE. RN THEN CALLED AND SPOKE WITH GRAND DAUGHTER AND INFORMED HER OF PT'S CONDITION AND THAT SHE WILL BE ADMITTED TO HOSPITAL. NO FAMILY WERE PRESENT AT ANY TIME DURING ER STAY, NOR CALLED ER AT ANY OTHER TIME DURING STAY. ACCOUNTS RECEIVABLE ADMINISTRATOR WAS CONTACTED WHILE PT WAS IN ER. Diagnostic Imaging Comments CXR--RLL INFILTRATE, PER RADIOLOGIST REPORT @ 1039 Reviewed: Reviewed by Me Departure Communication (Admissions) 1039--SPOKE WITH DR. HAN, ACCEPTS PT FOR ADMIT. Impression Primary Impression: RLL pneumonia Additional Impressions: UTI (urinary tract infection) INABILITY TO CARE FOR SELF Disposition: ADMITTED INPATIENT Condition: Stable Admissions Decision to Admit Reason: Admit from ER (General) Decision to Admit/Date: Dec 08, 2017 Time/Decision to Admit Time: 10:40 Departure-Patient Inst. Referrals: BABAK TRIANA MD (PCP) Primary Care Physician BRIGID COLES DO Dec 08, 2017 19:20
[2017-12-08] MEDS: risperiDONE 1 MG (RisperDAL) TAB PO SCH (20:18)
[2017-12-08] MEDS: clonazePAM 0.5 MG (KlonoPIN) TAB PO SCH (20:18)
[2017-12-08] MEDS ORDERED: HALOPERIDOL 5 MG (HALDOL) TAB ONE (22:56)
[2017-12-08] MEDS ORDERED: HALOPERIDOL 5 MG (HALDOL) TAB PO ONE (23:00)
[2017-12-08 23:36] VITALS: BP 146/66
[2017-12-09] MEDS: CATHETER FLUSH 10 ML SYR IV SCH ×3 (06:00→20:28)
[2017-12-09 06:11] LABS: BASOPHILS % (AUTO) 0 % (0-10); EOSINOPHILS # (AUTO) 0.6 10^3/uL (0.0-0.3); EOSINOPHILS % (AUTO) 6 % (0-10); HEMATOCRIT 37 % (35-52); HEMOGLOBIN 11.6 G/DL (11.5-16.0); LYMPHOCYTES # (AUTO) 1.4 X 10^3 (1.0-4.0); LYMPHOCYTES % (AUTO) 15 % (12-44); MEAN CORPUSCULAR HEMOGLOBIN 30 PG (25-34); MEAN CORPUSCULAR HGB CONC 32 G/DL (32-36); MEAN CORPUSCULAR VOLUME 96 FL (80-99); MEAN PLATELET VOLUME 8.7 FL (7.4-10.4); MONOCYTES # (AUTO) 0.7 X 10^3 (0.0-1.0); MONOCYTES % (AUTO) 8 % (0-12); NEUTROPHILS # (AUTO) 6.7 X 10^3 (1.8-7.8); NEUTROPHILS % (AUTO) 71 % (42-75); PLATELET COUNT 470 10^3/uL (130-400); RED BLOOD COUNT 3.82 10^6/uL (4.35-5.85); RED CELL DISTRIBUTION WIDTH 12.8 % (10.0-14.5); WHITE BLOOD COUNT 9.5 10^3/uL (4.3-11.0)
[2017-12-09 06:30] LABS: ALANINE AMINOTRANSFERASE 43 U/L (0-55); ALBUMIN 3.6 GM/DL (3.2-4.5); ALKALINE PHOSPHATASE 151 U/L (40-136); BILIRUBIN,TOTAL 0.3 MG/DL (0.1-1.0); BUN/CREATININE RATIO 8; CALCIUM 9.3 MG/DL (8.5-10.1); CARBON DIOXIDE 25 MMOL/L (21-32); CHLORIDE 103 MMOL/L (98-107); CREATININE SERUM 0.75 MG/DL (0.60-1.30); GFR ESTIMATED > 60; GLUCOSE 101 MG/DL (70-105); POTASSIUM 4.2 MMOL/L (3.6-5.0); SODIUM 140 MMOL/L (135-145); TOTAL PROTEIN 7.2 GM/DL (6.4-8.2)
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
[2017-12-09] MEDS: risperiDONE 1 MG (RisperDAL) TAB PO SCH ×3 (08:48→20:28)
[2017-12-09] MEDS: clonazePAM 0.5 MG (KlonoPIN) TAB PO SCH ×3 (08:48→20:28)
[2017-12-09] MEDS: AZITHROMYCIN 250 MG TAB (ZITHROMAX) PO SCH (08:48)
[2017-12-09] MEDS: cefTRIAXone 1 GM/NS 50 ML IVPB IV SCH ×2 (08:49)
[2017-12-09 09:43] VITALS: BP 163/74
[2017-12-09 12:00] VITALS: BP 171/82
[2017-12-09 18:00] VITALS: BP 167/85
[2017-12-10] VITALS: BP 145/80
[2017-12-10] MEDS: CATHETER FLUSH 10 ML SYR IV SCH ×3 (05:28→21:02)
[2017-12-10 08:00] VITALS: BP 178/81
[2017-12-10] MEDS: clonazePAM 0.5 MG (KlonoPIN) TAB PO SCH ×3 (08:26→21:02)
[2017-12-10] MEDS: cefTRIAXone 1 GM/NS 50 ML IVPB IV SCH ×2 (08:26)
[2017-12-10] MEDS: AZITHROMYCIN 250 MG TAB (ZITHROMAX) PO SCH (08:26)
[2017-12-10] MEDS: risperiDONE 1 MG (RisperDAL) TAB PO SCH ×3 (08:26→21:02)
[2017-12-10 12:00] VITALS: BP 138/74
[2017-12-10 18:00] VITALS: BP 142/70
--- NOTE | 2017-12-10 22:51 | Progress Note (SOAP) ---
Subjective Subjective/Events-last exam Patient resting comfortably in bed. She becomes agitated when asked any questions. Tolerating PO diet. Denies any pains today. Review of Systems Date Seen by Provider: Dec 10, 2017 Time Seen by Provider: 10:30 Pulmonary: No Dyspnea, No Cough Cardiovascular: No: Chest Pain, Palpitations Gastrointestinal: No: Nausea, Vomiting, Abdominal Pain Genitourinary: Frequency, Incontinence Neurological: Weakness Focused Exam Lactate Level 12/08/17 11:45: Lactic Acid Level 0.94 12/08/17 13:05: Lactic Acid Level 0.84 Objective Exam Last Set of Vital Signs Vital Signs Date Time Temp Pulse Resp B/P (MAP) Pulse Ox O2 Delivery O2 Flow Rate FiO2 12/10/17 20:00 Room Air 12/10/17 18:00 97.9 106 18 142/70 (94) 92 12/09/17 12:00 3.00 Capillary Refill : Less Than 3 Seconds I&O Intake and Output 12/10/17 00:00 Intake Total 2570 ml Output Total 3450 ml Balance -880 ml Intake Oral 2570 ml Output Urine Total 3450 ml # Voids 2 General: Alert, No Acute Distress HEENT: Mucous Memb Moist/[place] Lungs: Clear to Auscultation, Normal Air Movement Heart: Regular Rate, No Murmurs Abdomen: Normal Bowel Sounds, Soft, No Tenderness, No Masses Extremities: No Edema, No Tenderness/Swelling Skin: No Rashes, No Breakdown Neuro: Sensation Intact, Cranial Nerves 3-12 NL Psych/Mental Status: Other (Demented, becomes agitated with questions) Results/Procedures Lab Microbiology 12/08/17 Blood Culture - Preliminary, Resulted No growth 12/08/17 Influenza Types A,B Antigen (JAN) - Final, Complete 12/08/17 Urine Culture - Final, Complete Escherichia coli Radiology Date of Exam: 12/08/17 CHEST PA/LAT (2 VIEW) Clinical indication: Patient brought in by EMS with complaints of confusion and cold Patient woke home and did not know what to do. Exam: Chest x-ray PA and lateral views. Comparisons: Chest x-ray dated 06/11/2014. Findings: There is interval development of small bilateral pleural effusions with blunting of posterior costophrenic angle. There is interval development of subtle small patchy airspace opacities in the right mid lung field, right lung apex, and right lower lobe which may represent lung infiltrate/pneumonia. Pulmonary vasculature and cardiac silhouettes within normal limits. There is no pneumothorax. Hyperinflated lungs are again seen. Impression: 1: Concern for interval development of subtle infiltrate/pneumonia involving the right lung. There is also development of small bilateral pleural effusions. Dictated by: Dictated on workstation # [id number] Dict: 12/08/17 1007 Trans: 12/08/171751 Interpreted by: JOSEY GARNETT MD Electronically signed by: JOSEY GARNETT MD 12/08/17 175 Assessment/Plan Assessment/Plan Admission Status: Inpatient Order (span 2 midnights) Reason for Inpatient Admission: Requiring IV antibiotics and PT (1) Dementia Status: Chronic Assessment & Plan: Pt requires placement in SNF as it appears she is no longer able to care for herself at home. Her dementia and confusion severely limit her ability to remain oriented and to make decisions. When pt is told will need to be placed she becomes severely agitated. Pt's daughter and granddaughter have been unresponsive so far. Social work will be consulted to help manage placement. 12/10: Patient seems to be at her baseline, not able to make her own decisions at this time (2) UTI (urinary tract infection) Status: Acute Assessment & Plan: Rocephin D2, culture pending 12/10: Rocephin D3, Culture with Ecoli Qualifiers: Qualified Codes: N30.01 - Acute cystitis with hematuria (3) Urinary incontinence Status: Chronic Assessment & Plan: Unable to toilet herself Qualifiers: Qualified Codes: N39.46 - Mixed incontinence (4) Advanced age Status: Chronic (5) Poor hygiene Status: Chronic Assessment & Plan: - DCF report was made, patient is no longer able to care for herself and does not have adequate support at home to remain in home safe 12/10: Emergent guardianship has been requested, SW involved with care (6) Debility Status: Chronic (7) Anxiety Status: Acute Clinical Quality Measures DVT/VTE Risk/Contraindication: Risk Factor Score Per Nursin RFS Level Per Nursing on Admit: 2=Moderate EV HAN MD Dec 10, 2017 22:51
[2017-12-11 04:00] VITALS: BP 130/76
[2017-12-11] MEDS: CATHETER FLUSH 10 ML SYR IV SCH (05:27)
[2017-12-11 08:00] VITALS: BP 139/86
[2017-12-11] MEDS: risperiDONE 1 MG (RisperDAL) TAB PO SCH ×2 (08:49→13:15)
[2017-12-11] MEDS: clonazePAM 0.5 MG (KlonoPIN) TAB PO SCH ×2 (08:49→13:15)
[2017-12-11] MEDS: cefTRIAXone 1 GM/NS 50 ML IVPB IV SCH ×2 (08:50)
[2017-12-11] MEDS: AZITHROMYCIN 250 MG TAB (ZITHROMAX) PO SCH (08:50)
--- NOTE | 2017-12-11 15:39 | Discharge Summary ---
Diagnosis/Chief Complaint Date of Admission Dec 08, 2017 at 11:03 Date of Discharge Chief Complaint/HPI Chief Complaint/HPI Reviewed HPI with patient Discharge Summary-Simple/Stand Consultations Discharge Physical Examination Allergies: Coded Allergies: No Known Drug Allergies (Unverified , 04/26/09) Vitals & I&Os Vital Sign - Last 12Hours Date Time Temp Pulse Resp B/P (MAP) Pulse Ox O2 Delivery O2 Flow Rate FiO2 12/11/17 08:00 97.9 121 18 139/86 (103) 96 Room Air 12/09/17 12:00 3.00 Intake and Output 12/11/17 00:00 Intake Total 1100 ml Output Total 400 ml Balance 700 ml Hospital Course See final discharge diagnosis. Radiology Reviewed Date of Exam: 12/08/17 CHEST PA/LAT (2 VIEW) Clinical indication: Patient brought in by EMS with complaints of confusion and cold Patient woke home and did not know what to do. Exam: Chest x-ray PA and lateral views. Comparisons: Chest x-ray dated 06/11/2014. Findings: There is interval development of small bilateral pleural effusions with blunting of posterior costophrenic angle. There is interval development of subtle small patchy airspace opacities in the right mid lung field, right lung apex, and right lower lobe which may represent lung infiltrate/pneumonia. Pulmonary vasculature and cardiac silhouettes within normal limits. There is no pneumothorax. Hyperinflated lungs are again seen. Impression: 1: Concern for interval development of subtle infiltrate/pneumonia involving the right lung. There is also development of small bilateral pleural effusions. Dictated by: Dictated on workstation # [id number] Dict: 12/08/17 1007 Trans: 12/08/17 175 Interpreted by: JOSEY GARNETT MD Electronically signed by: JOSEY GARNETT MD 12/08/171751 Discharge Instructions to patient/family Please see electronic discharge instructions given to patient. Discharge Medications Reviewed and agree with Discharge Medication list on patient's Discharge Instruction sheet Clinical Quality Measures DVT/VTE Risk/Contraindication: Risk Factor Score Per Nursin RFS Level Per Nursing on Admit: 2=Moderate EV HAN MD Dec 11, 2017 15:39
[2017-12-11] MEDS ORDERED: CIPR500T4 PO (15:42)
--- NOTE | 2017-12-11 15:44 | Discharge Inst-Skilled Nursing ---
Discharge Inst-Skilled NF Patient Instructions Patient Problems: UTI Dementia Urinary Incontinence Goal: - Improved independence - Increase strength - Safety at home Consult/Follow Up/Orders Follow up appt.: Eboni Trimble will see you in the [place] Skilled [facility] Admit to: [facility] Certifications SNF I certify that SNF services are required to be given on an inpatient basis because of the above named patient's need for assisted care on a continuing basis for the conditions(s) for which he/she was receiving inpatient hospital services prior to his/her transfer to the SNF. Shelter Facility Order: Nursing Services, Industrial Economist-Evaluate & Treat, Physical Therapy-Evaluate & Treat, Speech Language-Evaluate & Treat Discharge Diet: No Restrictions Daily Activity as Tolerated: Yes New & Resume Previous Orders Pneu Vac Indicated: Yes Discharge Medications New Medications: Ciprofloxacin HCl (Ciprofloxacin HCl) 500 Mg Tablet 500 MG PO BID for 3 Days, TAB Continued Medications: Clonazepam (Clonazepam) 0.5 Mg Tablet 0.5 MG PO TID, TAB Cyclosporine (Restasis) 1 Each Droperette 1 DROP OU BID, EA Ibuprofen (Advil) 200 Mg Tablet 400 MG PO BID, TAB Risperidone (Risperidone) 1 Mg Tablet 1 MG PO TID, TAB Discontinued Medications: Mirtazapine (Mirtazapine) 15 Mg Tablet 15 MG PO HS, TAB Ev Mccain Dec 11, 2017 15:42 EV MCCAIN MD Dec 11, 2017 15:44
[2017-12-11 17:01] VITALS: BP 139/86
== END 2017-12-11 16:30 | DRG 194 ==
LOC: EDUNIT# 07:53 → ER 07:54 → 4TH 11:03
PROVIDERS: ADMIT Family Medicine; ATTEND Family Medicine
DX: J18.9 Pneumonia, unspecified organism (principal); N39.0 Urinary tract infection, site not specified; F03.90 Unspecified dementia, unspecified severity, without behavioral disturbance, psychotic disturbance, mood disturbance, and anxiety; Z60.2 Problems related to living alone; R32 Unspecified urinary incontinence; R20.0 Anesthesia of skin; M81.0 Age-related osteoporosis without current pathological fracture; M19.91 Primary osteoarthritis, unspecified site; M54.9 Dorsalgia, unspecified; F41.9 Anxiety disorder, unspecified; F32.9 Major depressive disorder, single episode, unspecified; R53.81 Other malaise; B96.20 Unspecified Escherichia coli [E. coli] as the cause of diseases classified elsewhere; Z85.828 Personal history of other malignant neoplasm of skin; Z96.643 Presence of artificial hip joint, bilateral
CPT/HCPCS: 36415; 51701; 71046; 80053; 81000; 83605; 84145; 85025; 87040; 87077; 87088; 87186; 87804; 93041; 96374